=== PATIENT | female | born 1945 | race Caucasian/White ===

== ENCOUNTER 2019-01-01 09:49 | Observation (INO) | payer MEDICARE ==
--- NOTE | 2019-01-01 10:01 | ED ---
Altered Mental Status - HPI Summary HPI Summary: This patient is a 73 year old F presenting to [facility] via EMS with a chief complaint of confusion since earlier today. Per EMS, her confusion was worse upon arrival. Pt responded to the first 15 questions from EMS with her name. said that she was having these issues at 0830 today. Pt does not have any sensory or motor deficits. The patient rates the pain 0/10 in severity. Symptoms aggravated by nothing. Symptoms alleviated by nothing. Patient denies pain, CP, trouble breathing, dizziness, blurred vision. - History Of Current Complaint Stated Complaint: CODE HAGAN Time Seen by Provider: 01/01/19 09:54 Hx Obtained From: Patient, EMS Onset/Duration: Still Present, Suddenly Timing: Constant Severity Initially: Moderate Severity Currently: Moderate Character: Confusion Aggravating Factor(s): Nothing Alleviating Factor(s): Nothing Associated Signs And Symptoms: Negative: Dizziness - Allergies/Home Medications Allergies/Adverse Reactions: Allergies Allergy/AdvReac Type Severity Reaction Status Date / Time No Known Allergies Allergy Verified 01/02/19 07:01 Home Medications: Home Medications Allopurinol TAB* [Zyloprim 300 MG TAB*] 300 mg PO DAILY 01/01/19 [History Confirmed 01/01/19] Atenolol TAB* [Tenormin TAB* 50 MG] 50 mg PO DAILY 01/01/19 [History Confirmed 01/01/19] Cannabidiol (CBD) Extract (NF) [Epidiolex (NF)] 100 mg PO DAILY 01/01/19 [ History Confirmed 01/01/19] Ferrous Gluconate TAB* [Fergon TAB*] 324 mg PO DAILY 01/01/19 [History Confirmed 01/01/19] Furosemide TAB* [Lasix TAB*] 20 - 40 mg PO DAILY 01/01/19 [History Confirmed 08/14] Insulin Glargine,Hum.rec.anlog [Lantus Solostar 5x3 ML PENS] 25 units SUBCUT BEDTIME 01/01/19 [History Confirmed 01/01/19] Insulin Glargine,Hum.rec.anlog [Lantus Solostar] 30 unit SUBCUT QAM 01/01/19 [ History Confirmed 01/01/19] Lactulose [Enulose] 30 ml PO .2-3 TIMES/DAY 01/01/19 [History Confirmed 01/01/19 ] Lisinopril TAB* [Prinivil TAB*] 5 mg PO DAILY 01/01/19 [History Confirmed ] Nystatin CREAM* 1 applic TOPICAL BID 01/01/19 [History Confirmed 01/01/19] Hooven-3 Fatty Acids (Nf) [Fish Oil (NF)] 1,000 mg PO DAILY 01/01/19 [History Confirmed 01/01/19] Omeprazole CAP (NF) [Prilosec CAP* 20 MG] 20 mg PO DAILY 01/01/19 [History Confirmed 01/01/19] oxyCODONE TAB* [Roxycodone TAB 5 mg*] 2.5 - 5 mg PO QID PRN 01/01/19 [History Confirmed 01/01/19] PMH/Surg Hx/FS Hx/Imm Hx Previously Healthy: No Endocrine/Hematology History: Reports: Hx Diabetes Sensory History: Denies: Hx Deafness EENT History: Denies: Hx Deafness, Hx Auditory Problems - Surgical History Surgical History: Unable to Obtain/Confirm - Family History Known Family History: Positive: None - Social History Lives: With Family Hx Substance Use: No Review of Systems Constitutional: Other - negative - pain Negative: Chest Pain Respiratory: Other - negative - trouble breathing Neurological: Other - positive - confusion. negative - dizziness All Other Systems Reviewed And Are Negative: Yes Physical Exam - Summary Physical Exam Summary: Constitutional: Well-developed, Well-nourished, Alert. (-) Distressed Skin: Warm, Dry HENT: Normocephalic; Atraumatic Eyes: Conjunctiva normal Neck: Musculoskeletal ROM normal neck. (-) JVD, (-) Stridor, (-) Tracheal deviation Cardio: Rhythm regular, rate normal, Heart sounds normal; Intact distal pulses; The pedal pulses are 2+ and symmetric. Radial pulses are 2+ and symmetric. Pulmonary/Chest wall: Effort normal. (-) Respiratory distress, (-) Wheezes, (-) Rales Abd: Soft, (-) tenderness, (-) Distension, (-) Guarding, (-) Rebound Musculoskeletal: (-) Edema Neuro: Alert, Oriented x1, total confusion, no sensory or motor deficits Psych: Mood and affect Normal Triage Information Reviewed: Yes Vital Signs Reviewed: Yes Procedures - Sedation Patient Received Moderate/Deep Sedation with Procedure: No Diagnostics - Laboratory Result Diagrams: 11/07/19 04:56 01/02/19 04:56 Lab Statement: Any lab studies that have been ordered have been reviewed, and results considered in the medical decision making process. - Radiology CXR Radiology Interpretation Completed By: Radiologist Summary of Radiographic Findings: IMPRESSION: FINDINGS MOST CONSISTENT WITH CONGESTIVE HEART FAILURE. These findings are reviewed by Dr. Palacios. ABD X-ray Radiology Interpretation Completed By: Radiologist Summary of Radiographic Findings: IMPRESSION: NO METALLIC SURGICAL CLIPS OR PROSTHESES ARE SEEN. These findings are reviewed by Dr. Palacios. Brain MRI Radiology Interpretation Completed By: Radiologist Summary of Radiographic Findings: IMPRESSION: 1. LIMITED STUDY. 2. NO RESTRICTED DIFFUSION TO SUGGEST ACUTE INFARCT. 3. NONSPECIFIC WHITE MATTER CHANGES. 4. SMALL LEFT MASTOID EFFUSION.. These findings are reviewed by Dr. Palacios. - CT Brain CT Interpretation Completed By: Radiologist Summary of CT Findings: IMPRESSION: NO ACUTE INTRACRANIAL PATHOLOGY. CHRONIC SMALL VESSEL ISCHEMIC CHANGE. These findings are reviewed by Dr. Palacios. Head CTA CT Interpretation Completed By: Radiologist Summary of CT Findings: IMPRESSION: 1. No acute occlusive disease, severe stenosis or aneurysm in the head. 2. No acute disease or severe stenosis in the neck. 3. Moderate right pleural effusion. These findings are reviewed by Dr. Palacios. - EKG 1035 Cardiac Rate: NL - 71 BPM EKG Rhythm: Sinus Rhythm Summary of EKG Findings: EKG at 1035 shows 71 BPM, sinus rhythm, no STEMI National Institutes Of Health - NIH Scale Level of Consciousness: Alert/Keenly Responsive Ask Patient the Month and His/Her Age: Neither Correct/Aphasic Ask Pt to Open/Close Eyes and Registered Nurse/Release Non-Paretic Hand: Both Correctly Best Gaze (Only Horizontal Eye Movement): Normal Visual Field Testing: No Visual Loss Facial Paresis-Pt to Smile & Close Eyes or Grimace Symmetry: Normal/Symmetrical Motor Function - Right Arm: No Drift-Holds 10 Seconds Motor Function - Left Arm: No Drift-Holds 10 Seconds Motor Function - Right Leg: No Drift-Holds 10 Seconds Motor Function - Left Leg: No Drift-Holds 10 Seconds Limb Ataxia-Must be out of Proportion to Weakness Present: Absent Sensory (Use Pinprick to Test Arms/Legs/Trunk/Face): Normal Best Language (Describe Picture, Name Items): Severe Aphasia Dysarthria (Read Several Words): Normal Extinction and Inattention: No Abnormality Total Score: 4 Altered Mental Statu Course/Dx - Course Course Of Treatment: This patient is a 73 year old F presenting to [facility] via EMS with a chief complaint of confusion since earlier today. Per EMS, her confusion was worse upon arrival. Pt responded to the first 15 questions from EMS with her name. said that she was having these issues at 0830 today. Pt does not have any sensory or motor deficits. The patient rates the pain 0/10 in severity. Symptoms aggravated by nothing. Symptoms alleviated by nothing. Patient denies pain, CP, trouble breathing, dizziness, blurred vision. Physical exam shows total confusion, pt is oriented x1, and does not have sensory or motor deficits. All other abnormal lab results are not pertinent to current cc. Brain CT IMPRESSION: NO ACUTE INTRACRANIAL PATHOLOGY. CHRONIC SMALL VESSEL ISCHEMIC CHANGE. Head CTA IMPRESSION: 1. No acute occlusive disease, severe stenosis or aneurysm in the head. 2. No acute disease or severe stenosis in the neck. 3. Moderate right pleural effusion. CXR IMPRESSION: FINDINGS MOST CONSISTENT WITH CONGESTIVE HEART FAILURE. ABD X-ray IMPRESSION: NO METALLIC SURGICAL CLIPS OR PROSTHESES ARE SEEN. Brain MRI IMPRESSION: 1. LIMITED STUDY. 2. NO RESTRICTED DIFFUSION TO SUGGEST ACUTE INFARCT. 3. NONSPECIFIC WHITE MATTER CHANGES. 4. SMALL LEFT MASTOID EFFUSION.. EKG at 1035 shows 71 BPM, sinus rhythm, no STEMI. During ED course , pt was given Aspirin, Lipitor, Plavix. At 1009, Dr. Flores says the pt's confirms that there is no anti coagulation or trauma for the pt. Dr. Flores wants to give TPA due to speech and cognitive deficits being great enough and says that the benefit of TPA outweighs the negatives despite the NIH scale being low. At 1012, said the pt woke up with this confusion so TPA cannot be delivered due to unknown last well known time. Dr. Flores says to get an MRI now. Transfer for thrombectomy will be based on CT scan results. At 1022, the radiologist says the CT is negative. At 1112, Dr. Flores said to give the pt aspirin, plavix, and a statin and to admit the pt to the hospital. At 1700, Dr. Husain agrees to admit pt. Dx are AMS and aphasia. - Diagnoses Provider Diagnoses: AMS (altered mental status), Aphasia - Provider Notifications Discussed Care Of Patient With: Rizwan Flores Time Discussed With Above Provider: 10:09 Instructed by Provider To: Other - confirms that there is no anti coagulation or trauma for the pt. Dr. Flores wants to give TPA due to speech and cognitive deficits being great enough and says that the benefit of TPA outweighs the negatives despite the NIH scale being low. At 1012, said the pt woke up with this confusion so TPA cannot be delivered due to unknown last well known time. Dr. Flores says to get an MRI now. Transfer for thrombectomy will be based on CT scan results. At 1022, the radiologist says the CT is negative. At 1112, Dr. Flores said to give the pt aspirin, plavix, and a statin and to admit the pt to the hospital. At 1700, Dr. Husain agrees to admit pt. Discharge ED - Sign-Out/Discharge Documenting (check all that apply): Patient Departure - admit - Discharge Plan Condition: Stable Disposition: ADMITTED TO [facility] - Billing Disposition and Condition Condition: STABLE Disposition: Admitted to [facility] - Attestation Statements Document Initiated by Neftaly: Yes Documenting Scribe: Corby Mars Provider For Whom Neftaly is Documenting (Include Credential): Dr. Rizwan Palacios MD Scribaleida Attestation: Corby Dunbar scribed for Dr. Rizwan Palacios MD on 01/02/19 at 1027. Scribe Documentation Reviewed: Yes Provider Attestation: The documentation as recorded by the Corby bryant accurately reflects the service I personally performed and the decisions made by me, Dr. Rizwan Palacios MD Status of Scribe Document: Viewed
[2019-01-01] MEDS ORDERED: Alteplase* 100 MG VIAL ONE (10:04)
[2019-01-01] MEDS ORDERED: Iodixanol* (CONTRAST) 320 MG/ML 100 ML SDV IV ONE (10:19)
[2019-01-01 10:38] LABS: ABS Basophils 0.1 10^3/ul (0-0.2); ABS Eosinophils 0.1 10^3/ul (0-0.6); ABS Lymphocytes 1.8 10^3/ul (1.0-4.8); ABS Monocytes 0.4 10^3/ul (0-0.8); ABS Neutrophils 3.3 10^3/ul (1.5-7.7); Eosinophil % 2.2 %; Hematocrit 29 % (35-47); Hemoglobin 9.4 g/dL (12.0-16.0); Lymphocyte % 31.8 %; Mean Corpuscular HGB Conc 33 g/dL (31-36); Mean Corpuscular Hemoglobin 32 pg (27-31); Mean Corpuscular Volume 99 fL (80-97); Mean Platelet Volume 9.7 fL (7.4-10.4); Nucleated Red Blood Cells % 0.1; Platelet Count 119 10^3/uL (150-450); Red Cell Distribution Width 17 % (10-15); White Blood Count 5.7 10^3/uL (3.5-10.8)
[2019-01-01 10:49] LABS: Activated Partial Thrombo Time 37.3 seconds (26.0-38.0); INR 1.2 (0.82-1.09)
[2019-01-01 10:53] LABS: ALT 11 U/L (7-52); Albumin 2.4 g/dL (3.2-5.2); Albumin/Globulin Ratio 0.7 (1-3); Alkaline Phosphatase 126 U/L (34-104); BUN/Creatinine Ratio 12.4 (8-20); Blood Urea Nitrogen 28 mg/dL (6-24); CO2 Carbon Dioxide 23 mmol/L (22-32); Calcium 8.6 mg/dL (8.6-10.3); EGFR African American 25.7 (>60); EGFR Non-African American 21.2 (>60); Globulin 3.5 g/dL (2-4); Glucose 146 mg/dL (70-100); Sodium 140 mmol/L (135-145); Total Protein 5.9 g/dL (6.4-8.9)
[2019-01-01 11:05] LABS: Anion Gap 4 mmol/L (2-11); Chloride 113 mmol/L (101-111)
[2019-01-01] MEDS ORDERED: Aspirin 81 mg CHEW TAB* 81 MG TAB.CHEW PO ONE (11:09)
[2019-01-01] MEDS ORDERED: Clopidogrel TAB* 75 MG PO ONE (11:10)
[2019-01-01] MEDS ORDERED: Atorvastatin* 40 MG TAB PO ONE (11:10)
[2019-01-01 11:34] LABS: TSH (Thyroid Stimulating Horm) 1.74 mcIU/mL (0.34-5.60)
[2019-01-01 12:00] LABS: AST Redraw 36 U/L (13-39); Magnesium 2.1 mg/dL (1.9-2.7); Potassium Redraw 3.9 mmol/L (3.5-5.0)
--- NOTE | 2019-01-01 12:05 | CONS ---
CC: CONSULTATION REPORT: DATE OF CONSULT: 01/01/19 PATIENT OF: Dr. Senior. HISTORY OF PRESENT ILLNESS: This is a 73-year-old right-handed woman who has had no prior stroke or TIAs, who woke up this morning with a dense aphasia. According to the who I spoke to on the phone, she was last known well at roughly 10 when she went to bed, but he does not think there was any point this morning where she had a normal speech. There has been no weakness. PAST MEDICAL HISTORY: Hypertension, gout, lymphatic problems, and kidney disease. PAST SURGICAL HISTORY: There has been no recent surgeries. She has had no bleeding problems. This was history through the over the phone and he is going to be coming in shortly. MEDICATIONS: Include: 1. Lasix. 2. Atenolol. 3. Allopurinol. 4. Oxycodone. ALLERGIES: She has no known allergies. We will be getting full details through Dr. Senior's office and family. FAMILY HISTORY: The patient is unable to give us these details now. SOCIAL HISTORY: She does not smoke or drink. PHYSICAL EXAM: Temperature 98.4, pulse 69, respiratory rate 18, blood pressure of 183/67. She has an NIH stroke scale of 5 due to one of her orientation questions, one of her commands. She has a mild facial palsy and she has a significant aphasia with significant repetition. Strength was 5/5 bilaterally. Sensation was grossly intact to light touch, but it was hard for her to follow commands for more detailed testing. Chest: Clear. Cardiovascular: Regular rate and rhythm. She was obese. DIAGNOSTIC STUDIES/LAB DATA: CT scan was reviewed and showed no significant bleed. There was some mild hyperlucencies most likely secondary to chronic small vessel ischemic change. Labs are all pending. Initially, we were told by the ambulance crew that her last known well was 8:30. While she was in CT scan, we were ordered tPA to be mixed. It was opened but was not given. She was started on tPA because her last known well was actually evening before. We are getting an MRI scan now and her CTA is pending. If she does not pass a swallowing eval she should get a rectal aspirin depending on what we get with her MRI scan. I have asked for it to be ordered. Depending on what the CTA and MRI show, we will direct further therapy. IMPRESSION: This woman most likely has had a stroke. It is an unclear onset. This was a wake up stroke. Last known well was probably 10 o'clock when she went to bed. Her CT scan shows no bleed, but she is not a tPA candidate. We did order tPA, at this time in the CT scan when we thought the last known well was at 8 or 8:30 as per ambulance and after we were able to reach the on the phone, we canceled tPA, but it has already been mixed. We are getting an MRI scan now and this may further inform our decisions and we are awaiting the CTA. Discussed with the that if the CTA shows a large vessel occlusion, it may be in her best interest to be transferred to a place where they would have capacity for clot retrieval. Her NIH stroke scale was not high enough, but her aphasia is significant, it is possible that she could also worsen. Depending on what the MRI scan shows and what further studies show she will need a rectal aspirin if she does not pass her swallowing evaluation. We will be getting further information from the and Dr. Senior. Thank you for sharing her case. [id number]/[facility] #: [id number] CYDNEY
[2019-01-01 12:42] LABS: Urine Appearance Clear; Urine Bacteria Absent (Absent); Urine Bilirubin Negative (Negative); Urine Blood 2+ (Negative); Urine Color Yellow; Urine Glucose Negative (Negative); Urine Ketones Negative (Negative); Urine Nitrite Negative (Negative); Urine Protein 1+(30 mg/dL) (Negative); Urine Red Blood Cell 1+(3-5/hpf) (Absent); Urine Specific Gravity 1.015 (1.010-1.030); Urine Urobilinogen Negative (Negative); Urine White Blood Cell Trace(0-5/hpf) (Absent)
[2019-01-01] MEDS ORDERED: NS 0.9% 1000 ML** 1,000 ML IV ONE (17:10)
[2019-01-01 17:21] LABS: % Iron Saturation 33 % (15-55); Iron 75 ug/dL (50-212); Total Iron Binding Capacity 228 mcg/dL (250-450); Transferrin 163 mg/dL (203-362)
[2019-01-01 17:42] LABS: Ferritin 117.2 ng/mL (11-307)
[2019-01-01 17:45] LABS: Folate 11.95 ng/mL (>3.99)
[2019-01-01] MEDS ORDERED: Acetaminophen TAB* 325 MG PO PRN (18:07)
[2019-01-01] MEDS ORDERED: Ondansetron INJ* 2 MG/ML VIAL IV PRN (18:07)
[2019-01-01] MEDS ORDERED: NS 0.9% 1000 ML** 1,000 ML IV SCH (18:15)
--- NOTE | 2019-01-01 19:26 | HP ---
HISTORY AND PHYSICAL: ADDENDUM: The case was discussed and reviewed with Jessica Ro NP. Ms. Hankins is a 73-year-old female with a past medical history of gout, hypertension, type 2 diabetes, who presented to the emergency room with dense aphasia. She was seen by Neurology (Dr. Flores), and his impression is that the patient likely had a stroke. Initially, he had ordered TPA as the reported last known well was around 8 or 8:30 in the morning, but when he reached the patient's on the phone, the last known well was at 10 last night when she went to bed. She will be admitted for further workup including an echocardiogram and Doppler study. She will be treated with aspirin, Plavix. We will put holding parameters on her antihypertensives for permissive hypertension. She will have neuro checks, and she will be seen by a PT, OT and Speech Therapy. I am in agreement with the current management of this case. [id number]/[facility] #: [id number] MTDD
--- NOTE | 2019-01-01 20:33 | HP ---
ATTENDING ADDENDUM NOW INCLUDED ON THIS REPORT ADMISSION HISTORY AND PHYSICAL: DATE OF ADMISSION: 01/01/19 PRIMARY CARE PROVIDER: Dr. Senior. PROVIDER: Jessica Ro NP. ATTENDING PHYSICIAN: Dr. Inderjit Desouza.* (DICTATED BY JESSICA RO NP) OTHER PROVIDERS: Dr. Flores. CHIEF COMPLAINT: Confusion. HISTORY OF PRESENT ILLNESS: This is a 73-year-old female with a past medical history significant for hypertension and diabetes type 2 who arrived to the emergency room on 01/01/19 for confusion, last known well was around 10 o'clock last night. She woke up this morning around 8:30 with confusion, at which point her called EMS. Blood sugar en route was 141. In the emergency room, she underwent orbit, abdomen and chest x-rays to visualize any metal before she then went for brain CT imaging. Dr. Flores had seen the patient, performed an NIH Stroke Scale this morning which was scored at 5. No TPA was given. At the time of my evaluation this evening, the NIH Stroke Scale score was 7 with worsening ataxia, hemianopsia, and dysphagia. She was able to understand a conversation and follow commands, though cannot express complex sentences without using inappropriate words, can answer simple yes or no questions without difficulty. She denied any recent illness or injury or long- distance traveling. Denied chest pain, shortness of breath, fever, chills, lightheadedness, palpitations, abdominal pain, nausea, vomiting, or issues with moving her bowels or bladder. PAST MEDICAL HISTORY: Gout, hypertension, anemia, diabetes type 2, and GERD. PAST SURGICAL HISTORY: None. HOME MEDICATIONS: 1. Lantus insulin 30 units in the a.m. and 25 units in the p.m. 2. Omeprazole 20 mg p.o. daily. 3. Atenolol 50 mg p.o. daily. 4. Nystatin cream topically b.i.d. 5. Furosemide 40 mg p.o. daily. 6. Oxycodone 2.5 to 5 mg p.o. 4 times a day p.r.n. 7. Ferrous gluconate 324 mg p.o. daily. 8. Lisinopril 5 mg p.o. daily. 9. Allopurinol 300 mg p.o. daily. 10. Constulose 300 mL b.i.d. ALLERGIES: No known drug allergies. FAMILY HISTORY: Unable to obtain. SOCIAL HISTORY: Denied any tobacco, ETOH, or substance use. She is and lives with her . REVIEW OF SYSTEMS: Limited due to altered mental status and aphasia. PHYSICAL EXAMINATION GENERAL: This is a well-developed obese woman, seen resting on the stretcher, in mild distress. VITAL SIGNS: Temperature 98.4 degrees Fahrenheit, pulse 72, respirations 16, O2 sat 99% on room air, and blood pressure 186/66. HEENT: Eyes: Conjunctivae pink and moist. PERRLA. EOMs intact. ENT: Mucous membranes dry. Oropharynx clear. NECK: Supple. No cervical lymphadenopathy noted. RESPIRATORY: Lung sounds are clear throughout bilaterally, diminished in the bases bilaterally on room air. CARDIAC: S1 and S2 present. Heart rate regular. No murmurs, gallops, or rubs appreciated. ABDOMEN: Large, soft, nontender, nondistended with positive bowel sounds x4. MUSCULOSKELETAL: No clubbing or cyanosis of the digits. Full range of motion in all extremities. NEURO: Able to move all extremities. Unable to differentiate between sharp and dull in bilateral upper extremities. No facial asymmetry. Tongue midline. Ataxic to bilateral lower extremities. SKIN: Noted rashes on the abdominal fold and sort of flushed cheeks and rash in a butterfly pattern over face. PSYCH: Oriented to self. No anxiety or depression noted. PERTINENT LABORATORY DATA/DIAGNOSTIC STUDIES: RBCs 2.9, hemoglobin 9.4, hematocrit 29, MCV 99, MCH 32, RDW 17, platelet count 119. INR 1.2. Chloride 113, BUN 28, creatinine 2.26, glucose 146. TIBC 228, transferrin 163. Alkaline phosphatase 126. B-natriuretic peptide 643. Total protein 5.9, albumin 2.4, albumin-globulin ratio 0.7. Abdominal x-rays showed no metallic surgical clips or prosthesis. Chest x-ray findings most consistent with congestive heart failure. Brain MRI shows limited study. No restricted diffusion to suggest acute infarct , nonspecific white matter changes, and small left mastoid effusion. EKG shows sinus rhythm. CTA of head and neck showed the proximal major intracranial vessels of the anterior and posterior circulation are patent without intraarterial thrombus or severe stenosis. There is calcified atherosclerotic plaque along the cavernous ICA and a type right [employer] SPECIALIST. No aneurysms identified. The dural venous sinuses are grossly patent. No acute occlusive disease, severe stenosis, or aneurysms in the head. No acute disease or severe stenosis in the neck. Moderate right pleural effusion. Brain CT: No acute intracranial pathology, chronic small-vessel ischemic change. Orbit x-ray: No radiopaque foreign object attributable to the orbits. ASSESSMENT AND PLAN: My impression is that this is a 73-year-old female with a past medical history significant for hypertension, diabetes, and gout who was admitted on 01/01/19 for an ischemic cerebrovascular accident with mild thrombocytopenia. 1. Ischemic cerebrovascular accident. The patient appears to have slight worsening of deficits since this morning with an NIH Stroke Scale going from [address] the patient on neuro checks q.4 hours with telemetry monitoring, PT, OT and speech therapy consult. Start the patient on atorvastatin, aspirin, and Plavix. Dr. Flores has already been in to see the patient. 2. Anemia, likely due to anemia of chronic renal disease, though there are no previous labs to compare. Again, the patient is currently on ferrous gluconate , which she can continue during this admission. Iron studies, vitamin B12, and folate were drawn. Vitamin B12 and folate were within normal limits. 3. Elevated creatinine level. There are no previous labs to compare this against to, though it is suspected that it is likely chronic in nature. However , we will perform a renal ultrasound to look for any renal stenosis or abnormalities in the kidneys. Erythropoietin lab will be drawn in the morning as well. One liter of fluid given in the emergency room. We will keep hydrated with normal saline at 100 in case this is a possible acute kidney injury. 4. Mild thrombocytopenia. We will continue to monitor. There are no signs of diffuse bleeding. We will draw CBC in the a.m. 5. Hypertension. Do not want to be aggressive about blood pressure control. The patient may continue her furosemide and lisinopril; however, to hold if the systolic blood pressure goes below 140. 6. History of gout. May continue her allopurinol. 7. Diabetes type 2. Blood sugar in the emergency room was 140s to 150s. We will continue to check blood sugars a.c. and h.s. I have decreased her Lantus dosing from her normal 30 in the a.m. and 25 in the p.m. to about 15 units b.i.d. and sliding scale coverage. 8. Gastroesophageal reflux disease. No signs or symptoms of indigestion at the moment. Held omeprazole due to interactions with the Plavix. Place the patient on famotidine. 9. DVT prophylaxis. SCDs, heparin. 10. Code status is full code. CONDITION: Guarded. DISPOSITION: Admit OBV to [address] [place] [address]. TIME SPENT: Time spent with the patient is over about 70 minutes with more than half of it spent [id number]. Plan of care has been discussed with my attending, Dr. Desouza, and they agreed. JESSICA RO NP ADDENDUM: The case was discussed and reviewed with Jessica Ro NP. Ms. Hankins is a 73-year-old female with a past medical history of gout, hypertension, type 2 diabetes, who presented to the emergency room with dense aphasia. She was seen by Neurology (Dr. Flores), and his impression is that the patient likely had a stroke. Initially, he had ordered TPA as the reported last known well was around 8 or 8:30 in the morning, but when he reached the patient's on the phone, the last known well was at 10 last night when she went to bed. She will be admitted for further workup including an echocardiogram and Doppler study. She will be treated with aspirin, Plavix. We will put holding parameters on her antihypertensives for permissive hypertension. She will have neuro checks, and she will be seen by a PT, OT and Speech Therapy. I am in agreement with the current management of this case. INDERJIT Desouza MD [id number]/[facility] #: [id number] [id number]/[facility] #: [id number] CYDNEY
[2019-01-01] MEDS ORDERED: Insulin GLARGINE(*) 1 UNITS UNIT SUBCUT SCH (21:00)
[2019-01-01] MEDS: Heparin VIAL(*) 5000 UNITS/ML VIAL (FIVE THOUSAND) SUBCUT SCH (21:47)
[2019-01-01] MEDS: Insulin GLARGINE(*) 1 UNITS UNIT SUBCUT SCH (21:47)
[2019-01-01 22:54] LABS: Urine Creatinine Concentration 66.75 mg/dL
[2019-01-02] MEDS: oxyCODONE TAB* 5 MG TAB PO PRN ×3 (03:25→20:27)
[2019-01-02] MEDS: hydrALAZINE IV* 20 MG/ML VIAL IV SLOW PU PRN ×3 (04:44→16:34)
[2019-01-02 05:18] LABS: ABS Basophils 0.1 10^3/ul (0-0.2); ABS Eosinophils 0.1 10^3/ul (0-0.6); ABS Lymphocytes 1.2 10^3/ul (1.0-4.8); ABS Monocytes 0.8 10^3/ul (0-0.8); ABS Neutrophils 5.7 10^3/ul (1.5-7.7); Eosinophil % 1.8 %; Hematocrit 26 % (35-47); Hemoglobin 8.8 g/dL (12.0-16.0); Lymphocyte % 14.9 %; Mean Corpuscular HGB Conc 34 g/dL (31-36); Mean Corpuscular Hemoglobin 33 pg (27-31); Mean Corpuscular Volume 99 fL (80-97); Mean Platelet Volume 9.5 fL (7.4-10.4); Platelet Count 119 10^3/uL (150-450); Red Blood Count 2.65 10^6 /uL (3.70-4.87); Red Cell Distribution Width 17 % (10-15); White Blood Count 7.9 10^3/uL (3.5-10.8)
[2019-01-02 05:30] LABS: BUN/Creatinine Ratio 13.6 (8-20); Calcium 8.7 mg/dL (8.6-10.3); EGFR African American 29.7 (>60); EGFR Non-African American 24.6 (>60); HDL Cholesterol 34.1 mg/dL; Potassium 3.7 mmol/L (3.5-5.0)
[2019-01-02] MEDS: Heparin VIAL(*) 5000 UNITS/ML VIAL (FIVE THOUSAND) SUBCUT SCH ×3 (05:36→23:03)
[2019-01-02] MEDS ORDERED: Lisinopril TAB* 10 MG PO SCH (09:00)
[2019-01-02] MEDS ORDERED: Lisinopril TAB* 5 MG PO SCH (09:00)
[2019-01-02] MEDS ORDERED: Insulin GLARGINE(*) 1 UNITS UNIT SUBCUT SCH (09:00)
[2019-01-02] MEDS ORDERED: Furosemide TAB* 20 MG PO SCH (09:00)
[2019-01-02] MEDS ORDERED: Atenolol TAB* 50 MG PO SCH (09:00)
[2019-01-02] MEDS ORDERED: Perflutren Lipid Microsphere* 3 ML VIAL ONE (09:47)
[2019-01-02] MEDS: Aspirin EC TAB* 81 MG TAB.EC PO SCH ×3 (10:18→11:54)
[2019-01-02] MEDS: Furosemide TAB* 20 MG PO SCH (10:21)
[2019-01-02] MEDS: Famotidine TAB* 20 MG PO SCH (10:22)
[2019-01-02] MEDS: Ferrous Gluconate TAB* 324 MG TAB PO SCH (10:24)
[2019-01-02] MEDS: Clopidogrel TAB* 75 MG PO SCH ×2 (10:24→11:55)
[2019-01-02] MEDS: Allopurinol TAB* 300 MG PO SCH (10:26)
[2019-01-02] MEDS: Atenolol TAB* 50 MG PO SCH (10:27)
[2019-01-02] MEDS: Insulin GLARGINE(*) 1 UNITS UNIT SUBCUT SCH ×2 (10:28→20:10)
--- NOTE | 2019-01-02 17:15 | ECHO ---
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 History: Risk factors: Hypertension. Diabetes mellitus. Morbidly obese. Conclusions Summary: - Left ventricle: The cavity size is normal. Wall thickness is mildly to moderately increased. Sigmoid septum. The estimated ejection fraction is 60-65%. Features are consistent with a pseudonormal left ventricular filling pattern, with concomitant abnormal relaxation and increased filling pressure (grade 2 diastolic dysfunction). - Left atrium: The atrium is mildly dilated. - Right atrium: The atrium is mildly dilated. - Atrial septum: Positive bubble study. - Mitral valve: There is mild regurgitation. - Aortic valve: The leaflets are mildly thickened. The findings are consistent with mild stenosis. The presence of stenosis is new since the study of February 2014. The mean systolic gradient is 11.0 mm Hg. The LVOT to aortic valve VTI ratio is 0.5. The valve area by the velocity-time integral method is 1.70 cm^2. The valve area by the peak velocity method is 1.70 cm^2. Study data: Transthoracic echocardiogram. Procedure: Transthoracic echocardiography was performed. Image quality was suboptimal. Intravenous Definity , 2 mlswas administered. A bubble study was performed. Complete 2D, spectral Doppler, and color flow Doppler. Location: Bedside. Patient status: Inpatient. Patient room number: 450 02. The previous study was not available, so comparison is made to the report of February 2014. Rhythm: Normal sinus rhythm. Findings Left ventricle: The cavity size is normal. Wall thickness is mildly to moderately increased. Sigmoid septum. The estimated ejection fraction is 60-65%. Wall motion is normal; there are no regional wall motion abnormalities. Features are consistent with a pseudonormal left ventricular filling pattern, with concomitant abnormal relaxation and increased filling pressure (grade 2 diastolic dysfunction). Right ventricle: The cavity size is normal. Systolic function is normal. Left atrium: The atrium is mildly dilated. Right atrium: The atrium is mildly dilated. Atrial septum: Positive bubble study. There is a shunt. The shunt is new since the study of February 2014. Mitral valve: The Mitral valve annulus appears calcified. The leaflets are mildly thickened. There is no evidence of stenosis. There is mild regurgitation. Aortic valve: Not well visualized. The leaflets are mildly thickened. The findings are consistent with mild stenosis. The presence of stenosis is new since the study of February 2014. There is no significant regurgitation. Tricuspid valve: Not well visualized. There is trace regurgitation. Pulmonic valve: Not well visualized. There is no significant regurgitation. Aorta: Aortic root: The aortic root is poorly visualized. Aortic arch: The aortic arch is appears normal. Pericardium: There is no significant pericardial effusion. Pulmonary arteries: Not well visualized. Systolic pressure can not be accurately estimated. Systemic veins: Inferior vena cava: The vessel is dilated. There is (>= 50%) respiratory change in the IVC dimension. Measurements Left ventricle Value Ref Right atrium continued Value Ref LC, LAX 4.4 cm 3.8 - 5.2 ML dim, ES, A4C (H) 4.6 cm 2.6 - 4.4 ESD, LAX 3.3 cm 2.2 - 3.5 Estimated RAP 8 mm Hg --------- FS, LAX 27 % 27 - 45 PW, ED, LAX (H) 1.2 cm 0.6 - 0.9 Aortic valve Value Ref EF (L) 53 % 54 - 74 Peak v, S 2.2 m/sec --------- E', lat barbara, TDI (L) 8.5 cm/sec >=10.0 VTI, S 50.0 cm -- ------- E/e', lat barbara, 17 Mean grad, S 11.0 mm Hg ----- ---- TDI Peak grad, S 19.0 mm Hg --------- E', med barbara, TDI (L) 6.3 cm/sec >=7.0 LVOT/AV, VTI ratio 0.5 -- ------- E/e', med barbara, 23 ESTELA, VTI 1.70 cm^2 ----- ---- TDI ESTELA, Vmax 1.70 cm^2 --------- E', avg, TDI 7.4 cm/sec E/e', avg, TDI (H) 19 <=14 Mitral valve Value Re f Peak E 1.43 m/sec --------- LVOT Value Ref Peak A 0.91 m/sec --------- Diam, S 2.00 cm Decel time 116 ms --------- Area 3.1 cm^2 PHT 83 ms --------- Peak minnie, S 1.16 m/sec Mean grad, D 4.0 mm Hg --------- VTI, S 26.0 cm Peak grad, D 10.0 mm Hg --------- Peak grad, S 5 mm Hg Peak E/A ratio 1.6 --------- Mean grad, S 3 mm Hg MVA, PHT 2.7 cm^2 --------- Ventricular septum Value Ref Pulmonic valve Value Ref IVS, ED (H) 1.4 cm 0.6 - 0.9 Peak v, S 1.07 m/sec --------- Peak grad, S 5.0 mm Hg --------- Right ventricle Value Ref LC, LAX 2.5 cm Aortic arch Value Ref LC minor ax, 3.2 cm 1.9 - 3.5 Arch diam 3.3 cm --------- A4C mid Decending aorta Value Ref Left atrium Value Ref Arash peak minnie 0.92 m/sec --------- AP dim, ES (H) 4.60 cm 2.70 - 3.80 Inferior vena cava Value Ref ML dim, A4C 5.2 cm Diam 2.6 cm --------- SI dim, A4C 6.3 cm Vol/bsa, ES, A/L (H) 40 ml/m^2 16 - 34 Right atrium Value Ref SI dim, ES (H) 5.4 cm 3.4 - 5.3 Legend: (L) and (H) anna values outside specified reference range. Prepared and electronically signed by Femi Aguirre MD 01/02/2019 17:15
--- NOTE | 2019-01-02 17:33 | PN ---
Subjective Date of Service: 01/02/19 Interval History: Ms. Dirk Hankins is feeling much better today. Her symptoms have completely resolved. Her memory of yesterday is patchy, but she does remember having some difficulty with speech yesterday in the ED. She knows now that she was not making sense, but did not realize it at the time. Today she has been up ambulating to the bathroom with 1 assist. No c/o unsteady gait. Nursing reports continued HTN. Family History: Unchanged from Admission Social History: Unchanged from Admission Past Medical History: Unchanged from Admission Objective Active Medications: Acetaminophen (Tylenol Tab*) 650 mg PO Q4H PRN MILD PAIN or TEMP > 100.4 Allopurinol (Zyloprim Tab*) 300 mg PO DAILY CRISTIAN Aspirin (Aspirin Ec Tab*) 81 mg PO DAILY CRISTIAN Atenolol (Tenormin Tab*) 50 mg PO DAILY CRISTIAN Atorvastatin Calcium (Lipitor*) 40 mg PO 1700 CRISTIAN Clopidogrel Bisulfate (Plavix Tab*) 75 mg PO DAILY CRISTIAN Famotidine (Pepcid Tab*) 20 mg PO DAILY CRISTIAN Ferrous Gluconate (Fergon Tab*) 324 mg PO DAILY CRISTIAN Furosemide (Lasix Tab*) 20 mg PO DAILY CRISTIAN Heparin Sodium (Porcine) (Heparin Vial(*)) 5,000 units SUBCUT Q8HR CRISTIAN Hydralazine HCl (Apresoline Iv*) 5 mg IV SLOW PU Q6H PRN Systolic Bp Greater Than:160 Insulin Glargine (Lantus(*)) 15 units SUBCUT BID CRISTIAN Lactulose (Lactulose*) 30 ml PO BID CRISTIAN Lisinopril (Prinivil Tab*) 10 mg PO DAILY CRISTIAN Ondansetron HCl (Zofran Inj*) 4 mg IV Q4H PRN NAUSEA/VOMITING Oxycodone HCl (Roxycodone Tab*) 5 mg PO QID PRN PAIN - MODERATE Vital Signs - 8 hr 01/02/19 01/02/19 01/02/19 09:32 11:42 14:46 Temperature 97.7 F Pulse Rate 73 Respiratory 20 18 Rate Blood Pressure 165/65 150/69 (mmHg) O2 Sat by Pulse 94 Oximetry Oxygen Devices in Use Now: None Appearance: Elderly female sitting in bed in NAD Ears/Nose/Mouth/Throat: Mucous Membranes Moist Neck: NL Appearance and Movements; NL JVP, Trachea Midline Respiratory: Symmetrical Chest Expansion and Respiratory Effort, Clear to Auscultation Cardiovascular: NL Sounds; No Murmurs; No JVD, RRR Abdominal: NL Sounds; No Tenderness; No Distention Extremities: No Edema Neurological: Alert and Oriented x 3, NL Sensation, NL Muscle Strength and Tone Lines/Tubes/Other Access: Clean, Dry and Intact Peripheral IV Nutrition: Taking PO's Result Diagrams: 01/02/19 04:56 01/02/19 04:56 Assess/Plan/Problems-Billing Assessment: Ms. Dirk Hankins is a 73 yo F with PMH of HTN, anemia, DM2, GERD, gout; who presented to the ED with c/o confusion and was found to have multiple neurological deficits concerning for CVA. - Patient Problems (1) TIA (transient ischemic attack) Code(s): G45.9 - TRANSIENT CEREBRAL ISCHEMIC ATTACK, UNSPECIFIED Comment: - Initially thought to be a CVA, though at this point symptoms have completely resolved - NIH stroke scale of 7 in the ED d/t ataxia, hemianopsia, dysphasia, confusion - MRI brain unremarkable - Echo shows EF 60-65%, diastolic dysfunction, PFO - Appreciate Neuro consult - Check BLE US to r/o DVT d/t PFO - PT/OT evals - Continue aspirin, Plavix, atorvastatin (2) Hypertension Code(s): I10 - ESSENTIAL (PRIMARY) HYPERTENSION Comment: - Hypertensive with SBP into 200s - Continue atenolol, PRN hydralazine; increase lisinopril (3) CKD (chronic kidney disease), stage III Code(s): N18.3 - CHRONIC KIDNEY DISEASE, STAGE 3 (MODERATE) Comment: - With LEONILA on admission, now improved - Baseline creatinine unclear as previous labs are from 2015 (4) Anemia Code(s): D64.9 - ANEMIA, UNSPECIFIED Comment: - Chronic and consistent with baseline - Iron studies normal, so suspect AOCD d/t CKD (5) Diabetes mellitus Code(s): E11.9 - TYPE 2 DIABETES MELLITUS WITHOUT COMPLICATIONS Comment: - A1c 4.7% indicating likely over-treatment - Continue Lantus at decrease dose; should remain on decreased dose at d/c (6) Thrombocytopenia Code(s): D69.6 - THROMBOCYTOPENIA, UNSPECIFIED Comment: - Chronic, at baseline (7) Hyperammonemia Code(s): E72.20 - DISORDER OF UREA CYCLE METABOLISM, UNSPECIFIED Comment: - History of elevated ammonia so do not think this contributed to confusion - Continue lactulose (8) GERD (gastroesophageal reflux disease) Code(s): K21.9 - GASTRO-ESOPHAGEAL REFLUX DISEASE WITHOUT ESOPHAGITIS Comment : - Continue famotidine (9) History of gout Code(s): Z87.39 - PERSONAL HISTORY OF DISEASES OF THE MS SYS AND CONN TISS Comment: - Continue allopurinol (10) DVT prophylaxis Comment: - Heparin SQ (11) Full code status Code(s): Z78.9 - OTHER SPECIFIED HEALTH STATUS Comment: Status and Disposition: Observation. Anticipate d/c home when medically stable, likely tomorrow. Attending: Nima Ibarra
[2019-01-02] MEDS: Atorvastatin* 40 MG TAB PO SCH (18:16)
[2019-01-02] MEDS ORDERED: hydrALAZINE IV* 20 MG/ML VIAL IV SLOW PU PRN ×2 (19:40→20:01)
[2019-01-03] MEDS: Heparin VIAL(*) 5000 UNITS/ML VIAL (FIVE THOUSAND) SUBCUT SCH ×2 (05:51→14:31)
[2019-01-03] MEDS ORDERED: Lisinopril TAB* 10 MG PO SCH (09:00)
[2019-01-03] MEDS: Allopurinol TAB* 300 MG PO SCH (09:22)
[2019-01-03] MEDS: Aspirin EC TAB* 81 MG TAB.EC PO SCH (09:23)
[2019-01-03] MEDS: Atenolol TAB* 50 MG PO SCH (09:23)
[2019-01-03] MEDS: Clopidogrel TAB* 75 MG PO SCH (09:24)
[2019-01-03] MEDS: Ferrous Gluconate TAB* 324 MG TAB PO SCH (09:24)
[2019-01-03] MEDS: Famotidine TAB* 20 MG PO SCH (09:24)
[2019-01-03] MEDS: Furosemide TAB* 20 MG PO SCH (09:24)
[2019-01-03] MEDS: Insulin GLARGINE(*) 1 UNITS UNIT SUBCUT SCH (09:25)
[2019-01-03] MEDS: oxyCODONE TAB* 5 MG TAB PO PRN (09:28)
[2019-01-03] MEDS ORDERED: oxyCODONE TAB* 5 MG TAB PO ONE (11:39)
[2019-01-03 16:11] VITALS: BP 170/64
[2019-01-03] MEDS: Atorvastatin* 40 MG TAB PO SCH (17:34)
--- NOTE | 2019-01-03 18:49 | PN ---
NEUROLOGICAL FOLLOWUP: DATE OF SERVICE: 01/03/19 PATIENT OF: Poppy Romero NP. HISTORY: The patient tells me that she was beginning to improve even while she was in the ER. Her speech is completely back to normal and she has no further deficits. She can remember having difficulty speaking and not being able to find words, but also being confused as to the words and apparently, that has begun to improve. She began saying that her dog was blue and not realizing what she was saying. She never had any weakness with this. CURRENT MEDICATIONS: Include: 1. Allopurinol 300 daily. 2. Aspirin 81 mg daily. 3. Plavix 75 mg daily. 4. Atenolol 50 mg daily. 5. Lipitor 40 mg daily. 6. Lasix 20 mg daily. 7. Lantus insulin 15 units b.i.d. 8. Lactulose 30 mL b.i.d. 9. Lisinopril 20 mg daily. PHYSICAL EXAMINATION: On exam, temperature 98.5, pulse 65, respirations 16, blood pressure 159/64. She was alert and oriented with normal speech and comprehension. Cranial nerves II through XII were intact. Her right eye palpebral fissures were wider set than the left eye, but this is chronic, according to both her and her sister. Motor exam revealed normal tone and strength. Chest: Clear. Cardiovascular: Regular rate and rhythm. DIAGNOSTIC STUDIES/LAB DATA: Her MRI scan showed no stroke and did show some nonspecific small-vessel ischemic changes. Her echo did show a PFO, but with normal atrium. Her CTA showed no significant stenosis or occlusion. Labs include normal CBC other than hematocrit of 26, platelet count of 119. INR of 1.2, PTT of 37. Ammonia was 81 and has been elevated chronically according to her nurse practitioner. Erythropoietin 41.9. Calcium 8.7, blood sugar has been running in the 160s to 190s while here, BUN 27, creatinine 1.99. Normal SGPT and SGOT. LDL was 134 and she was started on a statin. Normal B12 and folate. IMPRESSION AND PLAN: Bonnie has had an acute aphasia with good resolution of her symptoms. She has hyperlipidemia, which is being treated. She is obese. She snores significantly and I would recommend getting a sleep study to rule out sleep apnea, which has been associated with recurrent risk of stroke. She has hypertension and diabetes and these would also be risk factors. I discussed with her the issue of the patent foramen ovale, but with normal atrium and all these other risk factors, I do not think that the patent foramen ovale is the likely cause and I do not think it needs to be pursued at this point. She should be on the aspirin and Plavix for a month, then I would switch her to aspirin. Her Lipitor should be continued chronically. She would like to go home and I think that this is reasonable. She is anemic and I would make sure she does not have gastrointestinal bleeding, which can also increase her ammonia , and the hospitalist is taking care of the ammonia with lactulose and she will be having followup of this through the primary care doctor. If she has gastrointestinal bleeding, then we will need to rethink her aspirin and Plavix combination. Thank you for sharing her case. [id number]/[facility] #: [id number] CYDNEY
--- NOTE | 2019-01-03 20:20 | DS ---
CC: Dr. Rafat Senior * DISCHARGE SUMMARY: DATE OF ADMISSION: 01/01/19 DATE OF DISCHARGE: 01/03/19 PRIMARY CARE PROVIDER: Dr. Rafat Senior. ATTENDING PHYSICIAN: Dr. Cindy Husain.* (DICTATED BY KALYANI BERNARD NP) PRIMARY DIAGNOSES: 1. Transient ischemic attack. 2. Hypertension. 3. Diabetes mellitus, type 2. 4. Hyperammonemia. 5. Acute kidney injury superimposed on chronic kidney disease, stage 3. SECONDARY DIAGNOSES: 1. Thrombocytopenia. 2. Gastroesophageal reflux disease. 3. History of gout. STUDIES WHILE IN THE HOSPITAL: 1. Orbit x-ray on 01/01/19 reads as no radiopaque foreign body attributable to the orbits. 2. Brain CT on 01/01/19 reads as no acute intracranial pathology. Chronic small vessel ischemic change. 3. Head CTA on 01/01/19 reads as no acute occlusive disease, severe stenosis, or aneurysm in the head. No acute disease or severe stenosis in the neck. Moderate right pleural effusion. 4. EKG on 01/01/19, not viewable at this time. 5. Brain MRI on 01/01/19 reads as limited study. No restricted diffusion to suggest acute infarct. Nonspecific white matter changes. Small left mastoid effusion. 6. Abdominal x-ray on 01/01/19 reads as no metallic surgical clips or prosthesis are seen. 7. Chest x-ray on 01/01/19 reads as findings most consistent with congestive heart failure. 8. Renal ultrasound on 01/01/19 reads as right kidney not visualized, possibly obscured by bowel gas. Left kidney grossly normal in appearance. No hydronephrosis. Study limited by obese body habitus and bowel gas. 9. Transthoracic echocardiogram on 01/02/19 reads as the left ventricular cavity size is normal. Wall thickness is mildly to moderately increased. Sigmoid septum. The estimated ejection fraction is 60% to 65%. Features are consistent with a pseudonormal left ventricular filling pattern with incompetent abnormal relaxation and increased filling pressure (grade 2 diastolic dysfunction). The left atrium is mildly dilated. The right atrium is mildly dilated. Positive bubble study. There is mild MR. The aortic valve leaflets are mildly thickened. The findings are consistent with mild . The presence of is new since the study of February 2014. 10. Lower extremity venous Doppler study on 01/02/19 reads as limited study. No evidence of right or left popliteal artery, right femoral artery, left proximal or mid femoral artery, or right or left calf thrombus; however, the bilateral common femoral greater saphenous and profunda femoris veins and the distal left femoral vein could not be visualized secondary to body habitus. No evidence of left or right lower extremity DVT. Study limited by the patient's body habitus. Bilateral lower leg edema. CONSULTATIONS WHILE IN THE HOSPITAL: 1. Dr. Flores from Neurology. HISTORY OF PRESENT ILLNESS AND HOSPITAL COURSE: Ms. Dirk Hankins is a 73-year- old female with past medical history of gout, hypertension, anemia, chronic kidney disease, type 2 diabetes, and GERD, who presented to the emergency room on 01/01/19 with complaints of confusion. Please see the history and physical by Jessica Ro NP, for complete summary of the events leading up to this hospitalization. In short, the patient's last known well was around 10 p.m. the prior night. She awoke in the morning with confusion. Initially NIH Stroke Scale was scored at 5. Though the patient developed worsening ataxia, hemianopsia, and aphasia, an NIH Stroke Scale was at that point a 7. The patient was not a candidate for tPA as her last known well was the prior night. She was seen by Neurology in the emergency room and thereafter admitted by the hospitalist service. The patient had an uneventful night and by the next day, on 01/02/19, symptoms had resolved completely. There was no evidence of Wernicke's aphasia or expressive aphasia which were present the prior day. There was no evidence of ataxia and the patient was able to ambulate at her baseline. She was seen by Physical Therapy who had no acute concerns. She was noted to have a positive bubble study on echo and so a lower extremity ultrasound was performed without any conclusive evidence of DVT. There is not any obvious clinical evidence of DVT on exam. The patient was seen today again by Dr. Flores from Neurology. He agreed that this presentation was consistent with TIA as symptoms had resolved. He did recommend dual- antiplatelet therapy for 30 days and then stopping Plavix and continuing aspirin only. He additionally recommended an outpatient sleep study and weight loss. He cleared the patient for discharge from a neurological perspective. The patient during this hospitalization was noted to be anemic consistent with her baseline. A stool occult was negative. Creatinine was elevated on admission and thereafter trended down though the patient's baseline creatinine was not entirely clear. A1c was noted to be 4.7 indicating over-treatment of diabetes and so insulin was reduced for this reason. The patient was noted to have an elevated ammonia consistent with her history and this did not cause any neurological deficits. Lipid panel revealed triglycerides of 111, total cholesterol of 190, LDL of 134, and HDL of 34. Blood pressure had been significantly elevated with at least a couple of readings of systolics in the 200s. For that reason, lisinopril was increased with some effect. At this point, the patient reports feeling well and she is anxious to return home. On exam, she has no focal neurological deficit. She is alert and oriented x4. Her heart has a regular rate and rhythm with a grade 2/6 systolic murmur best heard in the right upper sternal border. Abdomen is soft, nontender. There is mild- to-moderate nonpitting edema in bilateral lower extremities, which is the patient's reported baseline. The patient was monitored on telemetry and there was no evidence of any arrhythmias including atrial fibrillation. Ms. Dirk Hankins is stable for discharge today. Most recent vitals are as follows: Temp 98.4, heart rate 69, respiratory rate 18, oxygen saturation 96% on room air, blood pressure 170/64. DISCHARGE MEDICATIONS: New medications: 1. Aspirin 81 mg p.o. daily. 2. Atorvastatin 40 mg p.o. daily. 3. Plavix 75 mg p.o. daily x30 days. Changed medications: 1. Glargine 15 units subcu b.i.d. (previously was 30 units q.a.m. and 25 units q.p.m.) 2. Lisinopril 20 mg p.o. daily. (previously was 5 mg daily). 3. Lactulose 30 mL p.o. t.i.d. (previously was daily). Continued medications: 1. Allopurinol 300 mg p.o. daily. 2. Atenolol 50 mg p.o. daily. 3. Ferrous gluconate 324 mg p.o. daily. 4. Furosemide 20 to 40 mg p.o. daily. 5. Oxycodone 2.5 to 5 mg p.o. four times a day p.r.n. pain. 6. CBD extract 100 mg p.o. daily. 7. Nystatin cream 1 application topically b.i.d. 8. [place]-3 1000 mg p.o. daily. 9. Omeprazole 20 mg p.o. daily. DISCHARGE PLAN: Ms. Dirk Hankins will be discharged home. Activity will be as tolerated. Diet will be heart healthy. Medications are noted above. The patient will need to remain on dual-antiplatelet therapy for 30 days. After 30 days, she can stop the Plavix and continue aspirin. She has been placed on a statin as her LDL is not below goal of 70. Lisinopril dosing has been increased for blood pressure control. Lantus dosing has been decreased due to low A1c and concern for hypoglycemia. Regarding the patient's lactulose, it is unclear how this was actually prescribed to her though the patient reports that she has been taking it once a day and due to her elevated ammonia, she should be taking this 3 times daily. She can continue her other usual medications as noted above. Again, it is recommended that she have an outpatient sleep study as she is at very high risk of obstructive sleep apnea. Weight loss is also recommended. She will need to follow up with her primary care provider in the next 4 to 7 days. She should return to the hospital or nearest emergency room for any worsening of symptoms, shortness of breath, lightheadedness, dizziness, chest discomfort, high fevers, chills, night sweats, loss of consciousness, or any other worrisome signs or symptoms. DISCHARGE CONDITION: Stable. DISCHARGE DISPOSITION: Home. This is a summarized report of a complex medical history and hospital stay. For further details, please see the entire medical record. TIME SPENT: Approximately 60 minutes was spent on this discharge. KALYANI BERNARD, WALLP[employer]ER HANGER HELPER [id number]/[facility] #: [id number] CYDNEY
[2019-01-03] MEDS ORDERED: oxyCODONE TAB* 5 MG TAB PO SCH (21:00)
== END 2019-01-03 18:15 | disposition home or self-care (01) ==
LOC: ED 09:49 → MEDTELE 18:07 → MERGE 18:07
PROVIDERS: ADMIT Internal Medicine; ATTEND Internal Medicine
DX: G45.9 Transient cerebral ischemic attack, unspecified (principal); 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 chronic kidney disease with stage 1 through stage 4 chronic kidney disease, or unspecified chronic kidney disease; N18.3 Chronic kidney disease, stage 3 (moderate); E11.22 Type 2 diabetes mellitus with diabetic chronic kidney disease; D64.9 Anemia, unspecified; E66.01 Morbid (severe) obesity due to excess calories; R47.01 Aphasia; R60.9 Edema, unspecified; E78.5 Hyperlipidemia, unspecified; Z79.4 Long term (current) use of insulin; E72.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 urea cycle metabolism, unspecified; D69.6 Thrombocytopenia, unspecified; K21.9 Gastro-esophageal reflux disease without esophagitis; Z79.899 Other long term (current) drug therapy; Z79.82 Long term (current) use of aspirin
CPT/HCPCS: 36415; 70030; 70450; 70496; 70498; 70551; 71045; 74018; 76775; 80048; 80061; 80076; 81003; 81015; 82140; 82272; 82570; 82607; 82668; 82728; 82746; 83036; 83540; 83550; 83690; 83735; 83880; 84443; 84484; 84540; 85025; 85610; 85730; 87086; 93005; 93306; 93970; 96361; 96365; 96372; 96375; 99285; A9270-GY; C8929; G0378; G8978-GP-CH; G8979-GP-CH; G8980-GP-CH; J0360; J1644; J2405; J2997

== ENCOUNTER 2019-02-16 18:17 | Inpatient (IN) | payer MEDICARE ==
--- NOTE | 2019-02-16 18:41 | ED ---
Altered Mental Status - HPI Summary HPI Summary: This pt is a 73 Y/O F presenting to [facility] with a CC of falling to her knees and being unable to stand back up at 1600. She states that she lives at home with her who helps her around the house. She states that her knees hurt with a 4/10 in severity. She states that she wants to check her blood levels due to her weakness. She has a Hx of high ammonium levels that cause her to be confused and have increased weakness. She states that when she woke up this morning she had slurred speech and confusion that improved after eating breakfast. She denies any fevers, chills, N/V, headaches, SOB and CP. She has no aggravating or alleviating factors. She states that she has a PMhx of DM, HTN, chronic renal failure, and elevated ammonium levels. - History Of Current Complaint Chief Complaint: EDAltMentalStatus Stated Complaint: POSS HIGH AMMONIA LEVELS IN BLOOD PER EMS Time Seen by Provider: 02/16/19 18:20 Hx Obtained From: Patient Last Known Well Date: 02/15/19 before bed Onset/Duration: Unknown Timing: Constant Severity Initially: Mild Severity Currently: None Character: Confusion Aggravating Factor(s): Other - elevated ammonium levels Alleviating Factor(s): Nothing Associated Signs And Symptoms: Positive: Negative - chills, SOB and CP, Weakness. Negative: Nausea, Vomiting, Fever, Headache - Allergies/Home Medications Allergies/Adverse Reactions: Allergies Allergy/AdvReac Type Severity Reaction Status Date / Time No Known Allergies Allergy Verified 01/02/19 07:01 PMH/Surg Hx/FS Hx/Imm Hx Previously Healthy: Yes Endocrine/Hematology History: Reports: Hx Diabetes Cardiovascular History: Reports: Hx Hypertension, Other Cardiovascular Problems/ Disorders - 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 Denies: Hx Pacemaker/ICD GI History: Reports: Other GI Disorders - Gastic ulers, hx non alcoholi cirrhiosis History: Reports: Hx Acute Renal Failure, Hx Chronic Renal Failure - Chronic renal fx r/t naproxen Musculoskeletal History: Reports: Hx Arthritis - knees, Hx Back Problems Sensory History: Reports: Hx Cataracts, Hx Contacts or Glasses - Reading, Hx Hearing Aid - [place] Denies: Hx Deafness Opthamlomology History: Reports: Hx Cataracts, Hx Contacts or Glasses - Reading Neurological History: Reports: Other Neuro Impairments/Disorders - RLS Psychiatric History: Denies: Hx Panic Disorder - Cancer History Cancer Type, Location and Year: BRAIN TUMOR S/P 30 YRS - Surgical History Surgery Procedure, Year, and Place: Tonsillectomy, catarats Infectious Disease History: No Infectious Disease History: Denies: Traveled Outside the [place] in Last 30 Days - Family History Known Family History: Positive: None - Social History Alcohol Use: None Hx Substance Use: No Substance Use Type: Reports: None, Other Substance Use Comment - Amount & Last Used: unknown Smoking Status (MU): Never Smoked Tobacco Review of Systems Negative: Fever, Chills Negative: Chest Pain Negative: Shortness Of Breath Negative: Vomiting, Nausea Positive: Other - bilateral knee pain Positive: Weakness. Negative: Headache All Other Systems Reviewed And Are Negative: Yes Physical Exam - Summary Physical Exam Summary: Constitutional: Well-developed, Well-nourished, Alert. (-) Distressed, Slow speech but alert and oriented, answering questions adequately, no focal deficits. Does not appear encephalopathic. Skin: Warm, Dry HENT: Normocephalic; Atraumatic Eyes: Conjunctiva normal Neck: Musculoskeletal ROM normal neck. (-) JVD, (-) Stridor, (-) Tracheal deviation Cardio: Rhythm regular, rate normal, Heart sounds normal; Intact distal pulses; The pedal pulses are 2+ and symmetric. Radial pulses are 2+ and symmetric. Pulmonary/Chest wall: Effort normal. (-) Respiratory distress, (-) Wheezes, (-) Rales Abd: Soft, (-) tenderness, (-) Distension, (-) Guarding, (-) Rebound, Large abdominal panus, Musculoskeletal: Bilateral lower extremity edema Neuro: Alert, Oriented x3 Psych: Mood and affect Normal Triage Information Reviewed: Yes Vital Signs On Initial Exam: Initial Vitals Temp Pulse Resp BP Pulse Ox 100.9 F 73 18 151/53 100 02/16/19 18:22 02/16/19 18:22 02/16/19 18:22 02/16/19 18:22 02/16/19 18:22 Vital Signs Reviewed: Yes Procedures - Sedation Patient Received Moderate/Deep Sedation with Procedure: No Diagnostics - Vital Signs Vital Signs Temp Pulse Resp BP Pulse Ox 02/16/19 18:22 100.9 F 73 18 151/53 100 - Laboratory Result Diagrams: 02/16/19 18:44 12/22/19 18:44 Lab Statement: Any lab studies that have been ordered have been reviewed, and results considered in the medical decision making process. - Radiology CXR Radiology Interpretation Completed By: ED Physician Summary of Radiographic Findings: No acute infiltrate, no plureal effusion. Pending offical review. Re-Evaluation - Re-Evaluation First Eval Re-Evaluation Time: 19:34 Change: Unchanged Comment: Pt was informed of her test results and is agreeable to an admission for further care. Altered Mental Statu Course/Dx - Course Course Of Treatment: This pt is a 73 Y/O F presenting to [facility] with a CC of falling to her knees and being unable to stand back up at 1600. She states that she lives at home with her who helps her around the house. She states that her knees hurt with a 4/10 in severity. She states that she wants to check her blood levels due to her weakness. She has had similar symptoms which found that she had an elevated ammonium level. Her PE found that she has Large abdominal panus, Bilateral lower extremity edema, and Slow speech but alert and oriented, answering questions adequately, no focal deficits. Does not appear encephalopathic. She has abnormal lab values in the following areas: wbc 17.1, rbc 2.41, Hct 23, Plt count 94, Immature Emmanuel % 24.0, Band Neutrophils 24.0, CO2 17, Glucose 163, Total Bilirubin 1.50, AST 58. Her CXR found the following : No acute infiltrate, no plureal effusion. She will be admitted to [facility] by Dr. Finnegan, Hospitalist, for further care. Her Dx is Sepsis, chronic anemia, chronic renal insufficiency, morbid obesity. She was given Piperacillin during her ED course. - Diagnoses Provider Diagnoses: Chronic anemia, Chronic renal insufficiency, Morbid obesity, SIRS (systemic inflammatory response syndrome) - Provider Notifications Discussed Care Of Patient With: Rosio Finnegan Time Discussed With Above Provider: 19:34 Instructed by Provider To: Admit As Inpatient Admit/Transition Orders Completed By ED Provider: Yes Discharge ED - Sign-Out/Discharge Documenting (check all that apply): Patient Departure - admitted - Discharge Plan Condition: Stable Disposition: ADMITTED TO [facility] Referrals: Rafat Senior MD [Primary Care Provider] - - Billing Disposition and Condition Condition: STABLE Disposition: Admitted to [facility] - Attestation Statements Document Initiated by Germanibaleida: Yes Documenting Scribe: Shukri Poon Provider For Whom Gremanibaleida is Documenting (Include Credential): Owen Betancourt MD Scribe Attestation: Shukri Dunbar, scribed for Owen Betancourt MD on 02/16/19 at 2141. Scribe Documentation Reviewed: Yes Provider Attestation: The documentation as recorded by the Shukri bryant accurately reflects the service I personally performed and the decisions made by me, Owen Betancourt MD Status of Scribe Document: Viewed
[2019-02-16 18:53] LABS: Hematocrit 23 % (35-47); Hemoglobin 7.5 g/dL (12.0-16.0); Mean Corpuscular HGB Conc 32 g/dL (31-36); Mean Corpuscular Hemoglobin 31 pg (27-31); Mean Corpuscular Volume 97 fL (80-97); Mean Platelet Volume 8.2 fL (7.4-10.4); Platelet Count 94 10^3/uL (150-450); Red Blood Count 2.41 10^6 /uL (3.70-4.87); Red Cell Distribution Width 17 % (10-15); White Blood Count 17.1 10^3/uL (3.5-10.8)
[2019-02-16 19:08] LABS: Albumin 2.2 g/dL (3.2-5.2); Albumin/Globulin Ratio 0.6 (1-3); BUN/Creatinine Ratio 10.5 (8-20); Calcium 8.3 mg/dL (8.6-10.3); EGFR African American 20.4 (>60); EGFR Non-African American 16.8 (>60); Globulin 3.5 g/dL (2-4); Potassium 3.6 mmol/L (3.5-5.0); Total Bilirubin 1.5 mg/dL (0.2-1.0); Total Protein 5.7 g/dL (6.4-8.9)
[2019-02-16 19:17] LABS: ABS Lymphocytes 0.8 10^3/ul (1.0-4.8); ABS Monocytes 0.7 10^3/ul (0-0.8); ABS Neutrophils 15.6 10^3/ul (1.5-7.7); Lymphocyte % 4.8 %; Nucleated Red Blood Cells % 0.1
[2019-02-16] MEDS ORDERED: Piperacillin/Tazobac ADVAN(*) 3.375 GM in NS 0.9% 100 ML* 100 ML IVPB ONE (19:30)
[2019-02-16 20:32] LABS: Urine Appearance Cloudy; Urine Bilirubin Negative (Negative); Urine Blood 3+ (Negative); Urine Color Yellow; Urine Glucose Negative (Negative); Urine Ketones Negative (Negative); Urine Nitrite Negative (Negative); Urine Protein 2+(100 mg/dL) (Negative); Urine Specific Gravity 1.012 (1.010-1.030); Urine Urobilinogen Negative (Negative)
[2019-02-16 20:37] LABS: Urine Bacteria Absent (Absent); Urine Red Blood Cell 2+(6-10/hpf) (Absent); Urine Squamous Epithelial Cell Present (Absent); Urine White Blood Cell Trace(0-5/hpf) (Absent)
[2019-02-16] MEDS ORDERED: Acetaminophen TAB* 325 MG PO PRN (21:04)
[2019-02-16] MEDS ORDERED: NS 0.9% 1000 ML** 1,000 ML IV SCH (21:15)
[2019-02-16] MEDS ORDERED: NS 0.9% 1000 ML** 1,000 ML IV ONE (21:26)
[2019-02-16 21:52] LABS: Influenza A Molecular NEGATIVE (Negative); Influenza B Molecular NEGATIVE (Negative)
[2019-02-16] MEDS ORDERED: Zosyn per Pharmacy* NOTE FOLLOW UP SCH (22:00)
[2019-02-16] MEDS ORDERED: Dextrose 50% VIAL 50 ml IV PUSH PRN (22:02)
[2019-02-16 22:14] LABS: TSH (Thyroid Stimulating Horm) 2.32 mcIU/mL (0.34-5.60)
[2019-02-17] MEDS: Insulin GLARGINE(*) 1 UNITS UNIT SUBCUT SCH ×2 (00:11→13:18)
[2019-02-17] MEDS ORDERED: ZOSYN 3.375 GM Q12H per EXTENDED INFUSION IVPB SCH ×2 (00:30)
[2019-02-17] MEDS: oxyCODONE TAB* 5 MG TAB PO PRN ×3 (00:58→20:41)
--- NOTE | 2019-02-17 01:29 | HP ---
CC: Dr. Senior* HISTORY AND PHYSICAL: DATE OF ADMISSION: 02/16/19 PROVIDER: Emily Whelan NP PRIMARY CARE PROVIDER: Dr. Senior. ATTENDING PHYSICIAN WHILE IN THE HOSPITAL: Dr. Rosio Finnegan* (dictated by Emily Whelan NP). CHIEF COMPLAINT: Weakness. HISTORY OF PRESENT ILLNESS: Ms. Hankins is a 73-year-old female with past medical history significant for hypertension, type 2 diabetes, hyperammonia, chronic kidney disease, thrombocytopenia, GERD, anemia, history of gout, history of recent TIA in December 2018, who presented to [facility] [place] with the complaints of weakness. The patient reports that she woke at approximately 10 a.m. this morning. She said she was "not with it." She reports that once she got up and ate breakfast and got into her routine, things improved. The reports that when she woke up this morning at 10 a.m., she had some slurred speech and was inappropriate with her words. He does report that after eating breakfast, her symptoms resolved and she was doing better. He reports that approximately 4 p.m. this evening, she got up from a sitting position to go the bathroom. He assisted her to a standing position. The patient was unsteady and weak with walking and when she got to the bathroom, she fell to her knees. She did not hit her head or have any head injuries, it was a gradual fall to her knee, the reports. Due to her weakness and unsteady gait, she was brought to the emergency room for further evaluation. While in the emergency room, the patient has routine lab work drawn. She was found to have leukocytosis with a white count of 17.9, fever of 100.9. Due to these findings, Hospital Medicine was asked to see and evaluate her for admission. The does report that the patient's speech has returned to baseline now and she is functioning and conversing appropriately at her baseline. PAST MEDICAL HISTORY: Significant for: 1. TIA in December 2018. 2. Hypertension. 3. Type 2 diabetes. 4. Hyperammonia. 5. Chronic kidney disease, stage 3. 6. Thrombocytopenia. 7. GERD. 8. Gout. 9. Anemia. PAST SURGICAL HISTORY: None. HOME MEDICATIONS: Include: 1. Aspirin 81 mg p.o. daily. 2. Atorvastatin 40 mg p.o. daily. 3. Lisinopril 20 mg p.o. daily. 4. [place]-3 fatty acid 1 tablet p.o. daily. 5. Lactulose 30 mL b.i.d. 6. Nystatin cream topically as needed. 7. Oxycodone 10 mg twice daily. 8. Omeprazole 20 mg p.o. daily. 9. Atenolol 50 mg p.o. daily. 10. Allopurinol 300 mg p.o. daily. 11. Furosemide 20 mg alternating with 40 mg every other day. 12. Ferrous sulfate 324 mg b.i.d. 13. Lantus 15 units twice daily. ALLERGIES: No known drug allergies. FAMILY HISTORY: Mother with a history of an AL at the age of 73. Father with a history of an AL at the age of 70. Father with diabetes. No reported history of cancer. SOCIAL HISTORY: The patient denies tobacco, alcohol or illicit drug use. She is . She lives with her . Surrogate decision maker in the event she is unable to make her own decisions is her . She is a full code. REVIEW OF SYSTEMS: She denies any fever, chills, unintended weight loss. She denies any chest pain or edema. Denies any cough, hemoptysis or shortness of breath. No nausea, vomiting, diarrhea, or abdominal pain. She does report chronic loose stools due to her lactulose. She denies any gross hematuria, dysuria, urinary frequency, urgency or pain, burning with urination. She does complain of generalized weakness. Denies any visual complaints, dysphagia, arthralgias. She does complain of pain to bilateral knees, which is chronic. She does report redness to her groin and under her breast. She denies any psychosis or anxiety. PHYSICAL EXAMINATION GENERAL: At this time, Ms. Hankins is alert and oriented, resting on the stretcher in the emergency room. Her speech is clear. Thought process is intact. There is no gross focal deficit. VITAL SIGNS: Blood pressure 138/63, heart rate is 67, respirations are 18, O2 saturation 100% on room air, temperature is 100.9. HEENT: Head is atraumatic, normocephalic. Eyes: EOMs are intact. Sclerae anicteric and not pale. Oral mucosa is dry. NECK: Supple. LUNGS: Clear to auscultation bilaterally. No wheezes, rales, or rhonchi. CARDIAC: S1, S2. Regular rate and rhythm. She does have a systolic murmur. No rubs or gallops. ABDOMEN: Obese, soft, and nontender. Bowel sounds are present x4. NEUROLOGIC: She is awake, alert, oriented x3. Her speech is clear. Thought process is intact. [id number] is intact. Handgrips are equal. There is no pronator drift. Push-pull is intact. Sensation is intact to all 4 extremities. Pupils are equal and reactive at 2 mm. Tongue is midline. Smile is equal. Legs, lower extremities, she is unable to lift her legs due to her morbid obesity. Push- pull to her legs is intact. Sensation is intact to her lower legs. SKIN: She does have a large pannus with brown discoloration to skin. Her groin is excoriated with redness and excoriated redness under her bilateral breasts. She does have dry skin noted to her feet, but no open lesion. She does have 3 small skin tears noted to her left lower abdomen. DIAGNOSTIC STUDIES/LAB DATA: WBCs are 17.1, RBCs 2.41, hemoglobin 7.5, hematocrit is 23, platelet count is 94. Sodium 135, potassium 3.6, chloride 106 , carbon dioxide 17. Anion gap is 12. BUN is 29, creatinine 2.76. Glucose is 163. Lactic acid was 4.6. Calcium 8.3. Magnesium is pending. ASTs were 58, ALTs were 15 and alkaline phosphatase was 89. Ammonia was 52. BNP was greater than 1300. Urine, pH is 5.0, specific gravity 1.012, urine protein was 2+, ketones were negative, urine blood was 3+; nitrites, bilirubin, urobilinogen, urine leukocyte esterase was negative; urine wbc's were trace, rbc's were 2+, squamous epithelial cells were present, bacteria was absent, hyaline casts were present, glucose was negative. Flu A and B are currently pending. Her chest x-ray was reviewed by me, shows no acute findings. Radiology reading is pending at this time. CT of the brain is pending. ASSESSMENT AND PLAN: Ms. Hankins is a 73-year-old female with past medical history significant for recent transient ischemic attack; hypertension; type 2 diabetes; hyperammonia; chronic kidney disease, stage 3; thrombocytopenia, gastroesophageal reflux disease, gout, history of anemia, who presented to the emergency room with the complaints of weakness. She will be admitted under observation for: 1. Fever. I suspect her fever could be contributing to her underlying weakness. It is unclear as to the cause of her fever at this time. Flu, influenza swab is currently pending at this time. Urine is essentially within normal limits. Culture is currently pending. Chest x-ray does not appear to show pneumonia. The patient denies any cough, congestion, rhinorrhea, or any upper respiratory tract symptoms. The patient denies any abdominal pain, denies any nausea or vomiting. The patient did receive Zosyn in the emergency room. We will continue her on Zosyn due to her leukocytosis and temperature meeting systemic inflammatory response syndrome criteria. The also did have a lactic acid in the emergency room that was elevated at 4.6. I suspect this is related to intravascular dehydration as the patient does not appear to be in septic shock. The does meet SIRS criteria with leukocytosis and temperature 100.9, but has no clear source at this time. 2. Weakness. I suspect her weakness is related to likely some intravascular dehydration and fever of unknown origin. Her weakness could also be related to her anemia. Her anemia appears to be worse than her baseline. This as well could be contributing to her weakness at home today. 3. Anemia. The patient's H and H today was 7.5 and 23, which is below her baseline. I will get a stool for guaiac. We will repeat CBC in the a.m. and monitor her for further signs of bleeding. At this point, the patient denies any black or tarry stools. She denies any vomiting of blood. She denies any abdominal pain. If the patient has further decrease in her H and H, I would recommend a consult to Gastroenterology for source of bleeding. The patient recently had iron studies in the beginning of December. At that time, her iron was within normal limits as well as her B12 was also within normal limits. 4. Thrombocytopenia. The patient does have thrombocytopenia chronically. Her platelets count is 94 today, which is below her normal. We will continue to monitor her platelet count. I suspect her decrease in platelets count could be associated with underlying infection. We will continue to monitor. 5. Lactic acidosis. The patient does have an elevated lactic acid. It was reported that the patient was a difficulty to obtain blood from. I will get a repeat lactic acid, as the patient does not appear septic or in septic shock at this time. The patient is not hypotensive or tachycardic. I suspect that her lactic acid is elevated due to intravascular dehydration. I will give her a small amount of fluid. I will not give the 30/kg bolus as the patient does have lymphedema to her abdomen and +2 pitting edema to her lower extremities. At this point, she appears to be intravascularly dry, but extravascularly fluid overloaded. 6. Edema. The patient does have some chronic lymphedema to her abdomen. She does have +1 to +2 pitting edema to bilateral lower extremities but appears to be intravascularly dry. I am going to give her a small amount of fluid and monitor her closely. 7. Slurred speech. The patient did have an episode of slurred speech this morning prior to eating breakfast, which resolved after eating breakfast. Given the patient's recent history of a TIA, I will get a CT of the brain. I do not feel the patient needs a further repeat transthoracic echocardiogram or carotid studies as the patient recently had a TIA workup in December of this year. I will leave her on aspirin 81 mg. I am going to hold off on adding Plavix at this time as the patient is more anemic and has a platelet count of 94 which is below her baseline. I would recommend a consultation to Neurology in the morning for further recommendations given the concern of patient having recent TIA and positive bubble study. The patient is currently back at her baseline with no slurred speech and no current neurologic symptoms at this time. I will place her on neuro checks q. 4 hours overnight. Continue aspirin and statin. 8. Type 2 diabetes. The patient will be continued on her Lantus 15 units subcu b.i.d. and fingersticks a.c. and h.s. with lispro sliding scale. 9. History of gout. She will continue on allopurinol 300 mg p.o. daily. 10. Acute kidney injury. The patient does have acute kidney injury with superimposed chronic kidney disease, stage 3. I suspect this is due to intravascular dehydration. We will give her a small amount of fluid and repeat a BMP in the a.m. and continue to monitor her renal function. I am going to hold her lisinopril and Lasix due to the elevation in her renal function. 11. Hypertension. I am going to hold her lisinopril. The patient is normotensive at this time with a blood pressure 126/47. We will continue to monitor and hold the lisinopril due to her acute kidney injury. 12. Gastroesophageal reflux disease. She will continue on omeprazole as previously prescribed. 13. FEN. She can have her consistent carb diet. 14. Code status. She is a full code. 15. DVT prophylaxis. I am going to hold off on chemical DVT prophylaxis at this time as the patient has platelets count of 94 and worsening anemia, concern for bleeding. I will place her on SCDs. 16. History of elevated ammonia level. I will continue her on lactulose 30 mL b.i.d. as previously prescribed. TIME SPENT: Time spent on this admission was 60 minutes; greater than half that time was spent at the bedside reviewing the events leading thus far to her hospitalization, performing physical exam, and reviewing my plan of care. I have discussed this with my attending, Dr. Rosio Finnegan; she is in agreement with my plan. EMILY WHELAN, ELOISA [id number]/[facility] #: [id number] [place]
[2019-02-17 07:02] LABS: ABS Monocytes 1.1 10^3/ul (0-0.8); ABS Neutrophils 11.4 10^3/ul (1.5-7.7); Eosinophil % 0.1 %; Hematocrit 21 % (35-47); Hemoglobin 6.7 g/dL (12.0-16.0); Mean Corpuscular HGB Conc 33 g/dL (31-36); Mean Corpuscular Hemoglobin 32 pg (27-31); Mean Corpuscular Volume 97 fL (80-97); Mean Platelet Volume 8.5 fL (7.4-10.4); Platelet Count 75 10^3/uL (150-450); Red Blood Count 2.11 10^6 /uL (3.70-4.87); Red Cell Distribution Width 18 % (10-15); White Blood Count 14.5 10^3/uL (3.5-10.8)
[2019-02-17 07:12] LABS: BUN/Creatinine Ratio 11.1 (8-20); Calcium 8.3 mg/dL (8.6-10.3); EGFR Non-African American 16.6 (>60); Potassium 4.3 mmol/L (3.5-5.0)
[2019-02-17] MEDS: Ferrous Gluconate TAB* 324 MG TAB PO SCH ×2 (08:16→20:41)
[2019-02-17] MEDS: Pantoprazole TAB * 40 MG TAB PO SCH (08:16)
[2019-02-17] MEDS: Aspirin EC TAB* 81 MG TAB.EC PO SCH (08:16)
[2019-02-17] MEDS: Allopurinol TAB* 300 MG PO SCH (08:16)
[2019-02-17] MEDS: Atenolol TAB* 50 MG PO SCH (08:16)
[2019-02-17] MEDS: Insulin LISPRO* 1 UNITS UNIT SUBCUT SCH ×3 (08:16→17:22)
[2019-02-17] MEDS: Nystatin TOP POWDER* 15 GM BTL TOPICAL SCH ×2 (08:38→20:47)
--- NOTE | 2019-02-17 08:40 | PN ---
Subjective Date of Service: 02/17/19 Interval History: Critical labs reported to me this am: lactic acid 3.3, blood cultures positive for GPCs Dirk is feeling okay this morning, she describes a generalized weakness yesterday when she woke up, had trouble ambulating to the bathroom, which she usually does independently. She has no pain this morning, no shortness of breath. She reports taking extra lactulose yesterday because they were concerned her ammonia was high and causing the weakness, so she has been having frequent bowel movements, but no melena or hematochezia. Objective Active Medications: Acetaminophen (Tylenol Tab*) 650 mg PO Q4H PRN PRN Reason: MILD PAIN or TEMP > 100.4 Allopurinol (Zyloprim Tab*) 300 mg PO DAILY [facility] Last Admin: 02/17/19 08:16 Dose: 300 mg Aspirin (Aspirin Ec Tab*) 81 mg PO DAILY [facility] Last Admin: 02/17/19 08:16 Dose: 81 mg Atenolol (Tenormin Tab*) 50 mg PO DAILY [facility] Last Admin: 02/17/19 08:16 Dose: 50 mg Atorvastatin Calcium (Lipitor*) 40 mg PO 1700 [facility] Dextrose (Dextrose 50% Vial 50 Ml*) 25 ml IV PUSH .FOR FS < 60 - SS PRN PRN Reason: FS < 60 Ferrous Gluconate (Fergon Tab*) 324 mg PO BID [facility] Last Admin: 02/17/19 08:16 Dose: 324 mg Piperacillin Sod/Tazobactam (Sod 3.375 gm/ Sodium Chloride) 100 mls @ 25 mls/ hr IVPB Q12H [facility] Last Admin: 02/17/19 00:30 Dose: 25 mls/hr Insulin Glargine (Lantus(*)) 15 units SUBCUT Q12H [facility] Last Admin: 02/17/19 00:11 Dose: 15 units Insulin Human Lispro (Humalog*) 0 units SUBCUT AC [facility]; Protocol Last Admin: 02/17/19 08:16 Dose: 3 units Lactulose (Lactulose*) 30 ml PO BID [facility] Last Admin: 02/17/19 08:16 Dose: 30 ml Nystatin (Nystatin Top Powder*) 1 applic TOPICAL BID [facility] Oxycodone HCl (Roxycodone Tab*) 5 mg PO QID PRN PRN Reason: PAIN - MODERATE Last Admin: 02/17/19 00:58 Dose: 5 mg Pantoprazole Sodium (Protonix Tab*) 40 mg PO DAILY [facility] Last Admin: 02/17/19 08:16 Dose: 40 mg Pharmacy Consult (Zosyn Per Pharmacy*) 1 note FOLLOW UP .ZOSYN PER PHARMACY [facility] Vital Signs - 8 hr 02/17/19 02/17/19 02/17/19 00:58 03:15 07:51 Temperature 98.2 F Pulse Rate 65 Respiratory 18 20 20 Rate Blood Pressure 118/40 (mmHg) O2 Sat by Pulse 100 Oximetry Oxygen Devices in Use Now: None Appearance: alert, well appearing, wearing a snow hat Eyes: No Scleral Icterus Ears/Nose/Mouth/Throat: NL Teeth, Lips, Gums Neck: - - unable to see jugular veins Cardiovascular: RRR, - - systolic murmur RUSB with radiation to LUSB, none to carotids Abdominal: - - obese with lower abdominal lymphedema; there are two popped empty blisters on the LLQ Extremities: - - 1+ edema b/l Skin: - - very dry skin, no open skin Neurological: Alert and Oriented x 3 Result Diagrams: 02/17/19 06:37 02/17/19 06:37 Microbiology and Other Data: Microbiology 02/16/19 20:03 Aerobic Blood Culture - Preliminary Blood Venous Anaerobic Blood Culture - Preliminary 02/16/19 20:03 Aerobic Blood Culture - Preliminary Blood Venous 02/17/19 00:37 Stool Occult Blood (MALIHA) - Final Stool Assess/Plan/Problems-Billing Assessment: - Patient Problems (1) Sepsis Current Visit: Yes Status: Acute Comment: severe sepsis likely related to bloodstream infection s/p volume resuscitation, continue IVF today (BNP elevation noted; will slow down IVF, comfortable on room air) (2) Bacteremia Current Visit: Yes Status: Acute Code(s): R78.81 - BACTEREMIA SNOMED Code( s): 0439586 Comment: 2/4 bottles from 02/16 are growing GPCs will add vanc to zosyn I am suspecting abdominal lymphedema/skin breakdown as the source. repeat daily blood cultures (3) Fever Current Visit: Yes Status: Acute Code(s): R50.9 - FEVER, UNSPECIFIED SNOMED Code(s): 897828901 Comment: resolved, source now clear (4) Acute kidney injury Current Visit: No Status: Acute Priority: High Onset Date: 03/19/14 Code (s): N17.9 - ACUTE KIDNEY FAILURE, UNSPECIFIED SNOMED Code(s): 94638277 Comment: likely related to sepsis on CKD improved since yesterday after volume resuscitation; replete with blood today (5) Anemia Current Visit: No Status: Acute Code(s): D64.9 - ANEMIA, UNSPECIFIED SNOMED Code(s): 742040571 Comment: lower than baseline; FOBT + in combination with CKD transfuse 1U today (6) Thrombocytopenia Current Visit: No Status: Acute Code(s): D69.6 - THROMBOCYTOPENIA, UNSPECIFIED SNOMED Code(s): 728367072 Comment: chronic but worsened in setting of sepsis (7) Weakness Current Visit: No Status: Acute Code(s): R53.1 - WEAKNESS SNOMED Code(s): 68217485 Comment: likely multifactorial and related to deconditioning, anemia, sepsis will ultimately need a PT eval, but not yet (8) Chronic pain syndrome Current Visit: Yes Status: Acute Code(s): G89.4 - CHRONIC PAIN SYNDROME SNOMED Code(s): 695004953 Comment: continue oxycodone (9) Diabetes mellitus Current Visit: No Status: Chronic Code(s): E11.9 - TYPE 2 DIABETES MELLITUS WITHOUT COMPLICATIONS SNOMED Code(s): 59189575 Comment: continue lantus 15U nightly
[2019-02-17] MEDS ORDERED: Vancomycin per Pharmacy* NOTE FOLLOW UP SCH ×2 (09:00)
[2019-02-17] MEDS ORDERED: Vancomycin(*) 2,000 MG in NS 0.9% 500 ML* 500 ML IVPB ONE (09:00)
--- NOTE | 2019-02-17 13:18 | CONS ---
CONSULTATION REPORT: DATE OF CONSULT: 02/17/19 REQUESTING PHYSICIAN: Dr. Devi. CONSULTING SERVICE: Infectious Disease. REASON FOR CONSULT: Bacteremia. IMPRESSION: 1. Bacteremia with gram-positive cocci in chains in 2/4 blood culture bottles, resembled Strep by Gr am stain. Her only focal finding is a pannus with lymphedema and some ruptured blisters without sign ificant cellulitis currently, but may have been there preceding antibiotics. She has not had symptom s to suggest subacute endocarditis. She could have acute infective endocarditis. She does not have any prosthetic material present. She does not have any urinary complaints. She does have liver dise ase, though it is not clear that she has ascites and did not have any new abdominal pain this admissi on. 2. Chronic kidney disease. 3. Liver disease with hyperammonemia. 4. Type 2 diabetes. RECOMMENDATIONS: Stop Zosyn. Start ceftriaxone 2 g a day. We will recheck the blood cultures. She should have a transthoracic echocardiogram as the first next step in workup. HISTORY OF PRESENT ILLNESS: This 73-year-old woman with morbid obesity and pannus with dependent lym phedema, admitting with fall, weakness without preceding fevers, chills, sweats, anorexia. Here, she had a fever. She was started on Zosyn. She was felt to have an abdominal wall cellulitis based on some blisters that have been present in the last few days. Her initial white count was 17,000 yester day, it is 14,000 today. Blood cultures 2/4 bottles growing gram-positive cocci resembling Strep. S he has no new pain. She does have chronic back and joint pain, which is unchanged. She is feeling m ore like herself today. No swollen or painful joints. No prosthetic material present. PAST MEDICAL HISTORY: 1. Morbid obesity. 2. Lymphedema of pannus. 3. TIA. 4. Hypertension. 5. Type 2 diabetes. 6. Hyperammonemia. 7. Stage 3 chronic kidney disease. 8. Thrombocytopenia. 9. Gastroesophageal reflux disease. 10. Gout. 11. Anemia. ALLERGIES: No known drug allergies. MEDICATIONS: 1. Tylenol. 2. Allopurinol. 3. Aspirin. 4. Atenolol. 5. Atorvastatin. 6. Ferrous gluconate twice a day. 7. Insulin glargine. 8. Lactulose twice a day. 9. Oxycodone as needed. 10. Pantoprazole daily. 11. Zosyn 3.375 g every 12 hours. SOCIAL HISTORY: She lives with her . She is a nonsmoker. No travel. FAMILY HISTORY: Mother had an WA at age 73. Father had an WA at age 70. REVIEW OF SYSTEMS: All negative, except as noted above to a 12-point review. PHYSICAL EXAM: Vital Signs: Temperature is 37, heart rate 60, respiratory rate 20, blood pressure 1 18/40, oxygen saturation 100% on room air. In general, she is awake, not in distress. Neurologic: She is oriented x3. Follows all commands. HEENT: There is no conjunctival hemorrhage. Oropharynx w ithout lesions. Neck is supple without mass. Heart is regular rate and rhythm with murmurs, rubs, o r gallops. Lungs are clear to auscultation bilaterally. Abdomen is obese. The pannus does have a d ependent lymphedema. There are some lower anterior ruptured blisters at the site of friction with he r thighs. There is no erythema or tenderness. No fluctuance. Skin: There is no rash or splinter h emorrhage. Musculoskeletal: There is no spine tenderness to palpation or joint synovitis. LABORATORY DATA: White blood cell count 14, hemoglobin 6.7, platelets 75. Creatinine 2.8, BUN 31. Please see impression and recommendations outlined above. Thank you for asking me to see Ms. Dirk Hankins in consultation. [id number]/[facility] #: [id number]
[2019-02-17] MEDS: cefTRIAXone(*) 2 GM in NS 0.9% 100 ML* 100 ML IVPB SCH (16:45)
--- NOTE | 2019-02-17 16:59 | CONS ---
CONSULTATION REPORT: DATE OF CONSULT: 02/17/19 INDICATION: Anemia. NARRATIVE: Ms. Dirk Hankins is a 73-year-old female who has a history of hypertension, type 2 diabe lucy, obesity, chronic kidney disease, elevated ammonias, thrombocytopenia, TIA, anemia, gout and GERD , who presented to the hospital yesterday with weakness. She states that she was feeling fine up unt il Sunday morning. She felt confused. A family member thought that they heard slurred speech. She did fall down unfortunately. EMS was called and she was brought to the emergency room for further ev aluation. The patient was admitted to the hospital with fever, weakness, and anemia. We were called due to the anemia. The patient denies any blood in the stool. Her son was with her today in the ro om and he also states that she has not seen any blood in her stools. She denies any abdominal pain. No nausea. No vomiting. Of note, she did have an upper endoscopy with Dr. Vera in 2014, which re vealed a large gastric ulcer presumably secondary to Advil use. She denies any recent Advil or NSAID s other than aspirin 81 mg on a daily basis. PAST MEDICAL HISTORY: Please see the HPI. PAST SURGICAL HISTORY: None. MEDICATIONS: At home include: 1. Lantus. 2. Lasix. 3. Allopurinol. 4. Atenolol. 5. Omeprazole. 6. Oxycodone. 7. Lactulose. 8. Lisinopril. 9. Atorvastatin. 10. Aspirin. ALLERGIES: None. FAMILY HISTORY: Coronary artery disease, diabetes. SOCIAL HISTORY: She denies any tobacco or alcohol use. REVIEW OF SYSTEMS: Please see the HPI, other than that mentioned in the HPI were unremarkable for 12 systems review. PHYSICAL EXAM: Temperature is 97.9, blood pressure is 139/51, pulse is 65, respiratory rate of 16, O 2 sat is 100%. General: Chronically ill-appearing female, lying flat in bed, alert, oriented, pleas ant, and fluent. HEENT: Mucous membranes are moist without lesions, ulcers, or exudate. Dentition is poor. Neck is supple. Trachea is midline. Heart: Regular rate and rhythm. Lungs: Coarse jaleel th sounds bilaterally. Abdomen is obese. Positive bowel sounds, soft, nontender, nondistended. No hepatosplenomegaly, masses, rebound, or guarding. Skin is warm and dry. DIAGNOSTIC STUDIES/LAB DATA: Labs of note, hemoglobin is 6.7 down from 7.5, baseline is low 9s; whit e count is 14.5; platelets of 75. No liver function tests were evaluated. ASSESSMENT AND PLAN: This is a 73-year-old female with anemia and a history of elevated ammonias wit h thrombocytopenia. Regarding her anemia, she has had a gastric ulcer in the past. Now given the fa ct that she has elevated ammonias in addition to a low platelet count, I do wonder if she could have some degree of portal hypertension, which would make esophageal varices a potential consideration. At this point, I think the patient does warrant another upper endoscopy to look for peptic ulcer diseas e and/or varices. She is understanding and agreeable. We will make arrangements for her EGD tomorro w, on Sunday. [id number]/[facility] #: [id number]
[2019-02-17] MEDS: Atorvastatin* 40 MG TAB PO SCH (17:22)
[2019-02-18] MEDS: Insulin GLARGINE(*) 1 UNITS UNIT SUBCUT SCH ×3 (00:02→22:56)
[2019-02-18 01:28] LABS: Albumin 1.6 g/dL (3.2-5.2); Albumin/Globulin Ratio 0.6 (1-3); Calcium 7.7 mg/dL (8.6-10.3); EGFR African American 20.5 (>60); Globulin 2.9 g/dL (2-4); Potassium 3.5 mmol/L (3.5-5.0); Total Bilirubin 1.8 mg/dL (0.2-1.0); Total Protein 4.5 g/dL (6.4-8.9)
[2019-02-18 01:32] LABS: ABS Eosinophils 0.4 10^3/ul (0-0.6); ABS Monocytes 1.2 10^3/ul (0-0.8); ABS Neutrophils 9.3 10^3/ul (1.5-7.7); Eosinophil % 3.2 %; Hematocrit 20 % (35-47); Hemoglobin 6.6 g/dL (12.0-16.0); Lymphocyte % 15.6 %; Mean Corpuscular HGB Conc 33 g/dL (31-36); Mean Corpuscular Hemoglobin 31 pg (27-31); Mean Corpuscular Volume 94 fL (80-97); Mean Platelet Volume 9.1 fL (7.4-10.4); Platelet Count 75 10^3/uL (150-450); Red Blood Count 2.11 10^6 /uL (3.70-4.87); Red Cell Distribution Width 18 % (10-15)
[2019-02-18] MEDS ORDERED: Flumazenil* 0.1 MG/ML 5 ML MDV ONE (07:40)
[2019-02-18] MEDS ORDERED: fentaNYL* 50 MCG/ML 2 ML VIAL (100 MCG VIAL) ONE ×2 (07:40→12:56)
[2019-02-18] MEDS ORDERED: Naloxone* 0.4 MG/ML 1 ML VIAL ONE (07:40)
[2019-02-18] MEDS ORDERED: Midazolam* 1 MG/ML 5 ML VIAL (5 MG) ONE ×2 (07:40→12:56)
[2019-02-18] MEDS ORDERED: Lidocaine 2% VISCOUS* 15 ML UDC ONE (07:40)
[2019-02-18] MEDS ORDERED: Influenza VAC *QUAD* 2019-20* 0.5 ML SYRINGE IM ONE (09:00)
--- NOTE | 2019-02-18 09:40 | TEE ---
*[facility]* [place] [address] Fax #: [phone] Transesophageal Echocardiogram Patient: Bonnie Bae : 1945 Study Date: 02/18/2019 Age: 73 Gender: F HR: 60 bpm Height: 63 in /160 cm BSA: 2.57 m^2 Weight: 389.2 lb /176.9 kg BMI: 69.1 kg/m^2 *[employer] Supervisor: * Elza Joregnsen [facility] *Referring Physician: * Janelle Devi *Reading Physician: * Femi Aguirre MD Indications: Bacteremia. CVA. History: Risk factors: Hypertension. Diabetes mellitus. Morbidly obese. Conclusions Summary: - Left ventricle: Systolic function is normal. The estimated ejection fraction is 60-65%. - Right ventricle: Systolic function is mildly reduced. - Left atrium: The atrium is mildly dilated. - Right atrium: The atrium is moderately dilated. - Atrial septum: There is a small patent foramen ovale. Predominent left to right color doppler shunt with some spontaneous shunts of agitated saline right to left. There was also delayed appearance of agitated saline contrast in the LA suggestive of possible transpulmonary passage or shunt. - Mitral valve: There is mild regurgitation, with multiple jets. - Aortic valve: The findings are consistent with mild stenosis. - Tricuspid valve: There is mild-moderate regurgitation. - Aorta: There is minimal atherosclerotic plaque visualized in the Transverse Aorta. - No obvious vegetations noted on this exam. Study data: Diagnostic Transesophageal Echocardiogram Consent: The risks and benefits of the procedure, including alternatives were discussed with the patient and/or their health care customer relations representative and written informed consent was obtained. Procedure: Initial setup: The patient was brought to the laboratory in the fasting state.Intravenous access was obtained. Surface ECG leads, heart rate, heart rhythm, blood pressure measurements, pulse oximetric signals, and mainstream end-tidal CO2 tracings were monitored throughout the procedure. Sedation. Moderate sedation was administered by nursing staff. History and physical as well as labs were reviewed. An oral bite block was inserted for protection of oral dentition. The patient was placed in the left lateral decubitus position. A transesophageal probe was inserted by the attending warehouse checker. Transesophageal echocardiography was performed, image quality was excellent, and all standard views were attempted within the limitations of patient tolerance and safety. Multiple 2D, color flow Doppler and spectral Doppler images were obtained. The transesophageal probe was removed. A bubble study was performed. Location: Procedure room. Patient status: Inpatient. Patient room number: 439. Study completion: The patient tolerated the procedure well. There were no complications. Administered medications: Midazolam, 4mg. Fentanyl, 25mcg. Rhythm: Normal sinus rhythm with PAC's. Findings Left ventricle: The cavity size is normal. Sigmoid septum. Mild turbulance in left ventricular outflow tract. Systolic function is normal. The estimated ejection fraction is 60-65%. Right ventricle: The cavity size is normal. Systolic function is mildly reduced. Left atrium: The atrium is mildly dilated. Emptying velocity is mildly reduced. There is no evidence of a thrombus in the atrial cavity or appendage. Right atrium: The atrium is moderately dilated. Atrial septum: There is a small patent foramen ovale. Predominent left to right color doppler shunt with some spontaneous shunts of agitated saline right to left. There was also delayed appearance of agitated saline contrast in the LA suggestive of possible transpulmonary passage or shunt. Bubble study images 52 and 53. Mitral valve: The leaflets are mildly thickened. There is no evidence of a vegetation. There is no evidence of stenosis. There is mild regurgitation, with multiple jets. Aortic valve: The leaflets are mildly thickened. Valve mobility is mildly restricted. There is no evidence of a vegetation. The findings are consistent with mild stenosis. There is no significant regurgitation. Tricuspid valve: There is no evidence of a vegetation. There is no evidence of stenosis. There is mild-moderate regurgitation. Pulmonic valve: There is no evidence of a vegetation. There is no evidence of stenosis. There is turbulent flow visualized in the pulmonary artery. There is trace regurgitation. Aorta: There is minimal atherosclerotic plaque visualized in the Transverse Aorta. Aortic root: The aortic root is appears normal. Ascending aorta: The ascending aorta is appears normal. Pericardium: There is no significant pericardial effusion. Pulmonary arteries: The main pulmonary artery is normal-sized. Systemic veins: Inferior vena cava: The vessel is normal in size. Superior vena cava: The vessel is appears normal. Pulmonary veins: Well visualized. The Pulmonary veins appear normal. 2 of 4 visualized. Measurements Aortic valve Value Ref Ascending aorta Value Ref Ana diam, ED 2.1 cm ---- AAo AP diam, S 3.1 cm ---- Aortic root Value Ref Root diam 3.1 cm <4.6 Legend: (L) and (H) anna values outside specified reference range. Prepared and electronically signed by Femi Aguirre MD 02/18/2019 09:39
[2019-02-18] MEDS: Insulin LISPRO* 1 UNITS UNIT SUBCUT SCH ×3 (10:14→19:20)
[2019-02-18] MEDS: Atenolol TAB* 50 MG PO SCH (10:29)
[2019-02-18] MEDS: Ferrous Gluconate TAB* 324 MG TAB PO SCH ×2 (10:38→21:35)
[2019-02-18] MEDS: Allopurinol TAB* 300 MG PO SCH (10:38)
[2019-02-18] MEDS: Pantoprazole TAB * 40 MG TAB PO SCH ×2 (10:38→21:35)
[2019-02-18 10:39] LABS: Hematocrit 24 % (35-47); Hemoglobin 7.9 g/dL (12.0-16.0); Mean Corpuscular HGB Conc 34 g/dL (31-36); Mean Corpuscular Hemoglobin 31 pg (27-31); Mean Corpuscular Volume 93 fL (80-97); Mean Platelet Volume 9.5 fL (7.4-10.4); Platelet Count 85 10^3/uL (150-450); Red Blood Count 2.53 10^6 /uL (3.70-4.87); Red Cell Distribution Width 19 % (10-15)
[2019-02-18] MEDS: Nystatin TOP POWDER* 15 GM BTL TOPICAL SCH ×2 (10:40→21:35)
[2019-02-18] MEDS: Aspirin EC TAB* 81 MG TAB.EC PO SCH (10:49)
--- NOTE | 2019-02-18 12:12 | PN ---
Subjective Date of Service: 02/18/19 Interval History: Received another unit of blood overnight. Feels fine this morning, has no complaints. She walked to the bathroom without difficulty. Objective Active Medications: Acetaminophen (Tylenol Tab*) 650 mg PO Q4H PRN PRN Reason: MILD PAIN or TEMP > 100.4 Allopurinol (Zyloprim Tab*) 300 mg PO DAILY REPLACED BY [facility] Last Admin: 02/18/19 10:38 Dose: 300 mg Atenolol (Tenormin Tab*) 50 mg PO DAILY REPLACED BY [facility] Last Admin: 02/18/19 10:29 Dose: Not Given Atorvastatin Calcium (Lipitor*) 40 mg PO 1700 REPLACED BY [facility] Last Admin: 02/17/19 17:22 Dose: 40 mg Dextrose (Dextrose 50% Vial 50 Ml*) 25 ml IV PUSH .FOR FS < 60 - SS PRN PRN Reason: FS < 60 Ferrous Gluconate (Fergon Tab*) 324 mg PO BID REPLACED BY [facility] Last Admin: 02/18/19 10:38 Dose: 324 mg Ceftriaxone Sodium 2 gm/ (Sodium Chloride) 100 mls @ 200 mls/hr IVPB Q24H REPLACED BY [facility] Last Admin: 02/17/19 16:45 Dose: 200 mls/hr Insulin Glargine (Lantus(*)) 15 units SUBCUT Q12H REPLACED BY [facility] Last Admin: 02/18/19 00:02 Dose: 15 units Insulin Human Lispro (Humalog*) 0 units SUBCUT AC REPLACED BY [facility]; Protocol Last Admin: 02/18/19 10:14 Dose: Not Given Lactulose (Lactulose*) 30 ml PO 0900,1500 REPLACED BY [facility] Last Admin: 02/18/19 10:40 Dose: Not Given Nystatin (Nystatin Top Powder*) 1 applic TOPICAL BID REPLACED BY [facility] Last Admin: 02/18/19 10:40 Dose: 1 applic Oxycodone HCl (Roxycodone Tab*) 5 mg PO QID PRN PRN Reason: PAIN - MODERATE Last Admin: 02/17/19 20:41 Dose: 5 mg Pantoprazole Sodium (Protonix Tab*) 40 mg PO DAILY REPLACED BY [facility] Last Admin: 02/18/19 10:38 Dose: 40 mg Vital Signs - 8 hr 02/18/19 02/18/19 02/18/19 07:00 07:12 07:38 Temperature 98.2 F Pulse Rate 54 Respiratory 16 18 21 Rate Blood Pressure 127/46 (mmHg) O2 Sat by Pulse 100 Oximetry 02/18/19 02/18/19 09:29 10:45 Temperature 98.3 F 97.9 F Pulse Rate 53 55 Respiratory 20 18 Rate Blood Pressure 101/33 118/37 (mmHg) O2 Sat by Pulse 99 100 Oximetry Oxygen Devices in Use Now: None Appearance: alert, well appearing Eyes: No Scleral Icterus Ears/Nose/Mouth/Throat: NL Teeth, Lips, Gums Neck: NL Appearance and Movements; NL JVP Respiratory: Symmetrical Chest Expansion and Respiratory Effort Cardiovascular: - - systolic murmur throughout Abdominal: - - large pannus, nontender, lymphedema changes RLQ, LLQ Extremities: - - 1+ edema b/l Skin: - - 2 open blisters on pannus; feet are extremely dry. scattered echymoses over arms and chest. Result Diagrams: 02/18/19 10:27 02/18/19 00:59 Microbiology and Other Data: Microbiology 02/16/19 20:03 Aerobic Blood Culture - Preliminary Blood Venous Anaerobic Blood Culture - Preliminary 02/16/19 20:03 Aerobic Blood Culture - Preliminary Blood Venous 02/17/19 00:37 Stool Occult Blood (MALIHA) - Final Stool Assess/Plan/Problems-Billing Assessment: This is a 73 year old woman with history of ?cirrhosis/evidence of portal hypertension, CKD, TIA, and lymphedema admitted on 02/16 with weakness, found to have anemia and bacteremia. - Patient Problems (1) Sepsis Current Visit: Yes Status: Acute Comment: severe sepsis likely related to bloodstream infection + acute on chronic anemia s/p volume resuscitation, can dc IVF now (2) Bacteremia Current Visit: Yes Status: Acute Code(s): R78.81 - BACTEREMIA SNOMED Code( s): 7720637 Comment: 02/16 blood cultures growing Strep canis. (of note, she has 3 greyhounds and another dog from [place] and [place], which may be pertinent, maybe not) ... discussed with Dr. Bowen; may reflect an immunocompromised status Dr. Bowen is following; switched vanc/zosyn to ceftriaxone yesterday I am suspecting abdominal lymphedema/skin breakdown as the source. SANTOS this morning did not show any vegetations repeat daily blood cultures (3) Fever Current Visit: Yes Status: Acute Code(s): R50.9 - FEVER, UNSPECIFIED SNOMED Code(s): 227875246 Comment: resolved, source now clear (4) Acute kidney injury Current Visit: No Status: Acute Priority: High Onset Date: 03/19/14 Code (s): N17.9 - ACUTE KIDNEY FAILURE, UNSPECIFIED SNOMED Code(s): 46867657 Comment: likely related to sepsis on CKD improved since yesterday after volume resuscitation; replete with blood today (5) Anemia Current Visit: No Status: Acute Code(s): D64.9 - ANEMIA, UNSPECIFIED SNOMED Code(s): 836406528 Comment: lower than baseline; FOBT + in combination with CKD s/p 2U of PRBCs 02/17 history of upper GI bleed in the past related to motrin (not taking any nsaids currently), also some question of cirrhosis/portal htn so varices also a consideration EGD today with Dr. Smart (6) Thrombocytopenia Current Visit: No Status: Acute Code(s): D69.6 - THROMBOCYTOPENIA, UNSPECIFIED SNOMED Code(s): 397485654 Comment: chronic but worsened in setting of sepsis (7) Weakness Current Visit: No Status: Acute Code(s): R53.1 - WEAKNESS SNOMED Code(s): 79102543 Comment: likely multifactorial and related to deconditioning, anemia, sepsis will ultimately need a PT eval, but not yet (8) Chronic pain syndrome Current Visit: Yes Status: Acute Code(s): G89.4 - CHRONIC PAIN SYNDROME SNOMED Code(s): 723799075 Comment: continue oxycodone (9) Diabetes mellitus Current Visit: No Status: Chronic Code(s): E11.9 - TYPE 2 DIABETES MELLITUS WITHOUT COMPLICATIONS SNOMED Code(s): 74529042 Comment: continue lantus 15U BID Status and Disposition: EGD today need to follow up on repeat blood cultures to be sure they clear
[2019-02-18] MEDS ORDERED: Naloxone* 0.4 MG/ML 1 ML VIAL IV PRN (12:43)
[2019-02-18] MEDS ORDERED: DiMENhydriNATE IV* 50 MG/ML VIAL IV PUSH PRN (12:43)
[2019-02-18] MEDS ORDERED: fentaNYL* 50 MCG/ML 2 ML VIAL (100 MCG VIAL) IV PRN (12:43)
[2019-02-18] MEDS ORDERED: HYDROcodone/ACETAMIN 5-325 MG* 1 TAB PO PRN (12:43)
[2019-02-18] MEDS ORDERED: oxyCODONE TAB* 5 MG TAB PO PRN (12:43)
[2019-02-18] MEDS ORDERED: KETAMINE HCL* 50 MG/ML 10 ML VIAL ONE (12:56)
[2019-02-18] MEDS ORDERED: Midazolam* 1 MG/ML 2 ML VIAL (2 MG) ONE (13:12)
[2019-02-18] MEDS: cefTRIAXone(*) 2 GM in NS 0.9% 100 ML* 100 ML IVPB SCH (15:00)
--- NOTE | 2019-02-18 15:48 | PRO ---
CC: Dr. Janelle Devi PROCEDURE REPORT: DATE OF PROCEDURE: 02/18/19 PROCEDURE: EGD with biopsy. INPATIENT PROVIDER: Dr. Janelle Devi. INDICATIONS: The patient is hospitalized for bacteremia and sepsis. Noted to have acute on chronic anemia while in the hospital. The patient denies seeing any bloody stools or melena. In 2014, the patient had a large gastric ulcer, which was felt to be related to Advil use. In August 2014, there was a CT abdomen , which demonstrated splenorenal shunting with multiple collaterals at the gastric fundus and a large draining vessel in the left renal vein. There was also a larger left lobe of the liver. Findings are felt to raise concern for portal hypertension with possible gastric and esophageal varices. No followup abdominal imaging or endoscopy has been performed since this time. MEDICATIONS GIVEN: By Anesthesia. DESCRIPTION OF PROCEDURE: Full disclosure of risks was reviewed with the patient as detailed on the consent form. The patient was placed in the left lateral decubitus position and monitored with continuous pulse oximetry, capnography, interval blood pressure monitoring, and direct observation. A bite -block was placed between the patient's teeth. Adult gastroscope was then inserted into the patient's mouth and advanced down the esophagus, into the stomach, and into the distal duodenum. Findings and interventions are described below. FINDINGS: Esophagus was a tubular structure. No obvious varices were appreciated in the esophagus. GE junction occurred at 36 cm and was mildly irregular. There was no significant proximal extension of the Z-line above the GE junction. Scope was then advanced into the stomach. Stomach was examined in the forward and retroflexed views. In the antrum, there were several erythematous nodules with overlying white erosions. These erosions were not bleeding. There was a mildly irregular appearance of the gastric body, which may represent mild portal hypertensive gastropathy. There was no fresh or old blood in the stomach. Retroflexion in the stomach revealed medium to large nonbleeding gastric fundal varices. Scope was then advanced into the duodenum to at least the third portion. Duodenal mucosa was unremarkable in appearance. Scope was then withdrawn back into the stomach. Biopsy was obtained from the antrum for CLOtest. Biopsy also obtained from the gastric body for histologic evaluation. Scope was then withdrawn from the patient. The patient tolerated the procedure well and was recovered in the GI recovery area. IMPRESSION: 1. Complete upper endoscopy to distal duodenum. 2. Medium to large fundal gastric varices. Suspect that these related to underlying portal hypertension, but these are not the source of the patient's anemia. 3. Nodular erythema in the gastric antrum with overlying erosions. It is certainly possible that this is a source of blood loss. FOLLOWUP: 1. Await pathology. 2. Recommend updating imaging of the liver. Would start with liver ultrasound with Doppler. 3. Will speak with patient's inpatient team. She should be switched to a non- cardioselective beta-pratik if possible to help as prophylaxis for the gastric varices. 4. Would recommend follow up in GI clinic at which point we can discuss further workup and management of suspected underlying liver disease and portal hypertension. 5. Ensure that patient is on twice daily PPI. Avoid or minimize NSAIDs. Thank you very much for this referral. [id number]/CPS #: [id number] CYDNEY
[2019-02-18] MEDS: oxyCODONE TAB* 5 MG TAB PO PRN (17:53)
[2019-02-18] MEDS: Atorvastatin* 40 MG TAB PO SCH (19:19)
[2019-02-19 06:21] LABS: INR 1.3 (0.82-1.09)
[2019-02-19 06:27] LABS: ABS Basophils 0.1 10^3/ul (0-0.2); ABS Eosinophils 0.8 10^3/ul (0-0.6); ABS Lymphocytes 2.1 10^3/ul (1.0-4.8); ABS Monocytes 1.2 10^3/ul (0-0.8); ABS Neutrophils 6.1 10^3/ul (1.5-7.7); Eosinophil % 8.1 %; Hematocrit 23 % (35-47); Hemoglobin 7.7 g/dL (12.0-16.0); Lymphocyte % 20.5 %; Mean Corpuscular HGB Conc 34 g/dL (31-36); Mean Corpuscular Hemoglobin 32 pg (27-31); Mean Corpuscular Volume 95 fL (80-97); Mean Platelet Volume 8.5 fL (7.4-10.4); Nucleated Red Blood Cells % 0.1; Platelet Count 75 10^3/uL (150-450); Red Blood Count 2.41 10^6 /uL (3.70-4.87); Red Cell Distribution Width 20 % (10-15); White Blood Count 10.4 10^3/uL (3.5-10.8)
[2019-02-19 06:31] LABS: ALT 15 U/L (7-52); AST 46 U/L (13-39); Albumin 1.6 g/dL (3.2-5.2); Albumin/Globulin Ratio 0.6 (1-3); Alkaline Phosphatase 77 U/L (34-104); Anion Gap 4 mmol/L (2-11); BUN/Creatinine Ratio 12.6 (8-20); Blood Urea Nitrogen 36 mg/dL (6-24); CO2 Carbon Dioxide 22 mmol/L (22-32); Calcium 7.8 mg/dL (8.6-10.3); Chloride 108 mmol/L (101-111); EGFR African American 19.6 (>60); EGFR Non-African American 16.2 (>60); Globulin 2.9 g/dL (2-4); Glucose 185 mg/dL (70-100); Potassium 3.5 mmol/L (3.5-5.0); Sodium 134 mmol/L (135-145); Total Protein 4.5 g/dL (6.4-8.9)
[2019-02-19 06:32] LABS: % Iron Saturation 49 % (15-55); Iron 72 ug/dL (50-212); Total Iron Binding Capacity 147 mcg/dL (250-450); Transferrin 105 mg/dL (203-362)
[2019-02-19 06:51] LABS: Ferritin 153.9 ng/mL (11-307)
[2019-02-19] MEDS: Pantoprazole TAB * 40 MG TAB PO SCH ×2 (09:10→20:29)
[2019-02-19] MEDS: Insulin LISPRO* 1 UNITS UNIT SUBCUT SCH ×3 (09:10→16:45)
[2019-02-19] MEDS: Allopurinol TAB* 300 MG PO SCH (09:11)
[2019-02-19] MEDS: Ferrous Gluconate TAB* 324 MG TAB PO SCH ×2 (09:11→20:29)
[2019-02-19] MEDS: Nystatin TOP POWDER* 15 GM BTL TOPICAL SCH ×2 (09:13→20:30)
--- NOTE | 2019-02-19 10:56 | PN ---
Subjective Date of Service: 02/19/19 Interval History: No acute issues overnight Had EGD yesterday No fevers, no chills. Family History: Unchanged from Admission Social History: Unchanged from Admission Past Medical History: Unchanged from Admission Objective Active Medications: Acetaminophen (Tylenol Tab*) 650 mg PO Q4H PRN PRN Reason: MILD PAIN or TEMP > 100.4 Allopurinol (Zyloprim Tab*) 300 mg PO DAILY [facility] Last Admin: 02/19/19 09:11 Dose: 300 mg Atorvastatin Calcium (Lipitor*) 40 mg PO 1700 [facility] Last Admin: 02/18/19 19:19 Dose: 40 mg Dextrose (Dextrose 50% Vial 50 Ml*) 25 ml IV PUSH .FOR FS < 60 - SS PRN PRN Reason: FS < 60 Ferrous Gluconate (Fergon Tab*) 324 mg PO BID [facility] Last Admin: 02/19/19 09:11 Dose: 324 mg Ceftriaxone Sodium 2 gm/ (Sodium Chloride) 100 mls @ 200 mls/hr IVPB Q24H [facility] Last Admin: 02/18/19 15:00 Dose: 200 mls/hr Insulin Glargine (Lantus(*)) 15 units SUBCUT Q12H [facility] Last Admin: 02/18/19 22:56 Dose: 15 units Insulin Human Lispro (Humalog*) 0 units SUBCUT AC [facility]; Protocol Last Admin: 02/19/19 09:10 Dose: 6 units Lactulose (Lactulose*) 30 ml PO 0900,1500 [facility] Last Admin: 02/19/19 09:10 Dose: 30 ml Nystatin (Nystatin Top Powder*) 1 applic TOPICAL BID [facility] Last Admin: 02/19/19 09:13 Dose: 1 applic Oxycodone HCl (Roxycodone Tab*) 5 mg PO QID PRN PRN Reason: PAIN - MODERATE Last Admin: 02/18/19 17:53 Dose: 5 mg Pantoprazole Sodium (Protonix Tab*) 40 mg PO BID [facility] Last Admin: 02/19/19 09:10 Dose: 40 mg Vital Signs - 8 hr 02/19/19 02/19/19 03:08 08:00 Temperature 98.0 F Pulse Rate 58 Respiratory 14 20 Rate Blood Pressure 136/42 (mmHg) O2 Sat by Pulse 95 96 Oximetry Oxygen Devices in Use Now: None Appearance: She is well developed, well nourished female lying in bed, not in distress Eyes: PERRLA Ears/Nose/Mouth/Throat: Mucous Membranes Moist Respiratory: Symmetrical Chest Expansion and Respiratory Effort, Clear to Auscultation Cardiovascular: RRR, No Edema, - - 3/6 systolic murmur at the RUSB Abdominal: NL Sounds; No Tenderness; No Distention, No Hepatosplenomegaly Extremities: No Edema Skin: No Rash or Ulcers Neurological: Alert and Oriented x 3 Result Diagrams: 02/19/19 05:30 02/19/19 05:31 Microbiology and Other Data: Microbiology 02/16/19 20:03 Aerobic Blood Culture - Preliminary Blood Venous Anaerobic Blood Culture - Preliminary 02/16/19 20:03 Aerobic Blood Culture - Preliminary Blood Venous 02/17/19 00:37 Stool Occult Blood (MALIHA) - Final Stool Assess/Plan/Problems-Billing Assessment: This is a 73 year old woman with history of ?cirrhosis/evidence of portal hypertension, CKD, TIA, and lymphedema admitted on 02/16 with weakness, found to have anemia and bacteremia. - Patient Problems (1) Bacteremia Current Visit: Yes Status: Acute Code(s): R78.81 - BACTEREMIA SNOMED Code( s): 8598388 Comment: 02/16 blood cultures growing Strep canis. (of note, she has 3 greyhounds and another dog from [place] and [place], which may be pertinent, maybe not) Seen by ID: Dr. Bowen; may reflect an immunocompromised status SANTOS done - no vegetation Repeat cultures negative thus far continue rocephin (2) Acute kidney injury Current Visit: No Status: Acute Priority: High Onset Date: 03/19/14 Code (s): N17.9 - ACUTE KIDNEY FAILURE, UNSPECIFIED SNOMED Code(s): 17265087 Comment: likely related to sepsis on CKD improving. (3) Anemia Current Visit: No Status: Acute Code(s): D64.9 - ANEMIA, UNSPECIFIED SNOMED Code(s): 385835146 Comment: lower than baseline; FOBT + in combination with CKD s/p 2Units of PRBCs 02/17 history of upper GI bleed in the past related to motrin (not taking any nsaids currently), EGD done 02/18- gastric varices, biopsy was done as well. (4) Gastric varices Current Visit: Yes Status: Acute Code(s): I86.4 - GASTRIC VARICES SNOMED Code(s): 51830107 Comment: with no prior hx of liver disease working up with liver u/s and blood work. due to bradycardia: propanolol was not started (5) Thrombocytopenia Current Visit: No Status: Acute Code(s): D69.6 - THROMBOCYTOPENIA, UNSPECIFIED SNOMED Code(s): 991036141 Comment: chronic but worsened in setting of sepsis (6) Chronic pain syndrome Current Visit: Yes Status: Acute Code(s): G89.4 - CHRONIC PAIN SYNDROME SNOMED Code(s): 154666013 Comment: continue oxycodone (7) Diabetes mellitus Current Visit: No Status: Chronic Code(s): E11.9 - TYPE 2 DIABETES MELLITUS WITHOUT COMPLICATIONS SNOMED Code(s): 20051463 Comment: continue lantus 15Units BID Status and Disposition: EGD today need to follow up on repeat blood cultures to be sure they clear
[2019-02-19] MEDS: Insulin GLARGINE(*) 1 UNITS UNIT SUBCUT SCH (11:46)
[2019-02-19] MEDS: cefTRIAXone(*) 2 GM in NS 0.9% 100 ML* 100 ML IVPB SCH (13:22)
[2019-02-19] MEDS: Atorvastatin* 40 MG TAB PO SCH (16:45)
[2019-02-20] MEDS: oxyCODONE TAB* 5 MG TAB PO PRN ×2 (00:43→22:04)
[2019-02-20] MEDS: Insulin GLARGINE(*) 1 UNITS UNIT SUBCUT SCH ×3 (00:43→22:04)
[2019-02-20] MEDS ORDERED: Morphine INJ* 2 MG/ML 1 ML SYRINGE (TWO MG - NEW SYRINGE VERSION) IV ONE (02:13)
[2019-02-20] MEDS: Insulin LISPRO* 1 UNITS UNIT SUBCUT SCH ×3 (08:34→17:07)
[2019-02-20] MEDS: Pantoprazole TAB * 40 MG TAB PO SCH ×2 (08:38→22:04)
[2019-02-20] MEDS: Nystatin TOP POWDER* 15 GM BTL TOPICAL SCH ×2 (08:38→22:05)
[2019-02-20] MEDS: Ferrous Gluconate TAB* 324 MG TAB PO SCH ×2 (08:38→22:04)
[2019-02-20] MEDS: Allopurinol TAB* 300 MG PO SCH (08:38)
--- NOTE | 2019-02-20 10:04 | PN ---
Progress Note - Progress Note Date of Service: 02/20/19 SOAP: Subjective: CC: bacteremia HPI: 73 year old woman with morbid obesity, abrasions on pannus. Has baseline chronic low back and knee pain which is not worse. She has no other pain, fever , rash, or diarrhea. Objective: Vital Signs Temp 36.9 C 02/20/19 03:36 Pulse 68 02/20/19 03:36 Resp 16 02/20/19 06:50 BP 120/34 02/20/19 03:36 Pulse Ox 97 02/20/19 03:36 Intake & Output 02/19/19 02/20/19 02/20/19 18:59 06:59 18:59 Intake Total 1080 480 Balance 1080 480 Intake: IV Fluids 10 ABX - CEFTRIAXONE 10 IVPB 110 ABX - CEFTRIAXONE 110 Oral 960 480 Other: # Bowel Movements 1 1 Estimated Stool Amount Medium Medium Gen:awake, no distress HEENT: no thrush Heart:RRR no murmur Lungs:CTA BL Abd:+BS NTND soft; dependent lymphedema with lateral superficial ulcers no surrounding erythema Skin: no rash MSK: no spine or joint tenderness Laboratory Results - last 24 hr 02/17/19 02/19/19 02/19/19 06:37 11:33 16:37 POC Glucose (mg/dL) 90 144 H Crossmatch See Detail 02/19/19 02/20/19 20:32 07:41 POC Glucose (mg/dL) 241 H 130 H Crossmatch Assessment: 1. Strep canis bacteremia in the setting of cirrhosis, significant dog contact; SANTOS negative and no other focus of infection 2. Morbid obesity with pannus lymphedema 3. 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 CKD Plan: 1. continue ceftriaxone until 02/21, can change to cephalexin 500 mg by mouth three times daily daily for 10 more [address] Discuss[address] Olivera
--- NOTE | 2019-02-20 12:21 | PN ---
Subjective Date of Service: 02/20/19 Interval History: No acute issues overnight No fever, no chills. Family History: Unchanged from Admission Social History: Unchanged from Admission Past Medical History: Unchanged from Admission Objective Active Medications: Acetaminophen (Tylenol Tab*) 650 mg PO Q4H PRN PRN Reason: MILD PAIN or TEMP > 100.4 Allopurinol (Zyloprim Tab*) 300 mg PO DAILY [facility] Last Admin: 02/20/19 08:38 Dose: 300 mg Atorvastatin Calcium (Lipitor*) 40 mg PO 1700 [facility] Last Admin: 02/19/19 16:45 Dose: 40 mg Dextrose (Dextrose 50% Vial 50 Ml*) 25 ml IV PUSH .FOR FS < 60 - SS PRN PRN Reason: FS < 60 Ferrous Gluconate (Fergon Tab*) 324 mg PO BID [facility] Last Admin: 02/20/19 08:38 Dose: 324 mg Ceftriaxone Sodium 2 gm/ (Sodium Chloride) 100 mls @ 200 mls/hr IVPB Q24H [facility] Last Admin: 02/19/19 13:22 Dose: 200 mls/hr Insulin Glargine (Lantus(*)) 15 units SUBCUT Q12H [facility] Last Admin: 02/20/19 11:38 Dose: 15 units Insulin Human Lispro (Humalog*) 0 units SUBCUT AC [facility]; Protocol Last Admin: 02/20/19 11:39 Dose: 3 units Lactulose (Lactulose*) 30 ml PO 0900,1500 [facility] Last Admin: 02/20/19 08:38 Dose: 30 ml Nystatin (Nystatin Top Powder*) 1 applic TOPICAL BID [facility] Last Admin: 02/20/19 08:38 Dose: 1 applic Oxycodone HCl (Roxycodone Tab*) 5 mg PO QID PRN PRN Reason: PAIN - MODERATE Last Admin: 02/20/19 00:43 Dose: 5 mg Pantoprazole Sodium (Protonix Tab*) 40 mg PO BID [facility] Last Admin: 02/20/19 08:38 Dose: 40 mg Vital Signs - 8 hr 02/20/19 02/20/19 02/20/19 06:50 08:00 08:10 Temperature 98.9 F Pulse Rate 75 Respiratory 16 16 16 Rate Blood Pressure 149/44 (mmHg) O2 Sat by Pulse 99 99 Oximetry 02/20/19 11:37 Temperature 98.3 F Pulse Rate 68 Respiratory 16 Rate Blood Pressure 136/40 (mmHg) O2 Sat by Pulse 99 Oximetry Oxygen Devices in Use Now: None Appearance: Elderly female, lying in bed, not in distress Eyes: PERRLA Respiratory: Symmetrical Chest Expansion and Respiratory Effort, Clear to Auscultation Cardiovascular: RRR, No Edema, - - 3/6 systolic murmur at the RUSB Abdominal: NL Sounds; No Tenderness; No Distention, No Hepatosplenomegaly Neurological: Alert and Oriented x 3 Result Diagrams: 02/19/19 05:30 02/19/19 05:31 Microbiology and Other Data: Microbiology 02/16/19 20:03 Aerobic Blood Culture - Preliminary Blood Venous Anaerobic Blood Culture - Preliminary 02/16/19 20:03 Aerobic Blood Culture - Preliminary Blood Venous 02/17/19 00:37 Stool Occult Blood ([facility]) - Final Stool Assess/Plan/Problems-Billing Assessment: This is a 73 year old woman with history of ?cirrhosis/evidence of portal hypertension, CKD, TIA, and lymphedema admitted on 02/16 with weakness, found to have anemia and bacteremia. - Patient Problems (1) Bacteremia Current Visit: Yes Status: Acute Code(s): R78.81 - BACTEREMIA SNOMED Code( s): 9798105 Comment: 02/16 blood cultures growing Strep canis. (of note, she has 3 greyhounds and another dog from [place] and [place], which may be pertinent, maybe not) Seen by ID: Dr. Bowen; may reflect an immunocompromised status SANTOS done - no vegetation Repeat cultures negative thus far continue rocephin- (2) Acute kidney injury Current Visit: No Status: Acute Priority: High Onset Date: 03/19/14 Code (s): N17.9 - ACUTE KIDNEY FAILURE, UNSPECIFIED SNOMED Code(s): 40016617 Comment: likely related to sepsis on CKD has improved (3) Anemia Current Visit: No Status: Acute Code(s): D64.9 - ANEMIA, UNSPECIFIED SNOMED Code(s): 152176965 Comment: lower than baseline; FOBT + in combination with CKD s/p 2Units of PRBCs 02/17 history of upper GI bleed in the past related to motrin (not taking any nsaids currently), EGD done 02/18- gastric varices, biopsy was done as well. (4) Gastric varices Current Visit: Yes Status: Acute Code(s): I86.4 - GASTRIC VARICES SNOMED Code(s): 67768408 Comment: with no prior hx of liver disease working up with liver u/s and blood work. due to bradycardia: propanolol was not started (5) Thrombocytopenia Current Visit: No Status: Acute Code(s): D69.6 - THROMBOCYTOPENIA, UNSPECIFIED SNOMED Code(s): 457688316 Comment: chronic but worsened in setting of sepsis (6) Chronic pain syndrome Current Visit: Yes Status: Acute Code(s): G89.4 - CHRONIC PAIN SYNDROME SNOMED Code(s): 386907461 Comment: continue oxycodone (7) Diabetes mellitus Current Visit: No Status: Chronic Code(s): E11.9 - TYPE 2 DIABETES MELLITUS WITHOUT COMPLICATIONS SNOMED Code(s): 60364404 Comment: continue lantus 15Units BID Status and Disposition: repeat cultures negative thus far, one more day of IV antibiotics anticipate discharge tomorrow with PO antibiotics. PT ordered
[2019-02-20] MEDS: cefTRIAXone(*) 2 GM in NS 0.9% 100 ML* 100 ML IVPB SCH (12:32)
[2019-02-20] MEDS: Atorvastatin* 40 MG TAB PO SCH (17:07)
[2019-02-21] MEDS: Allopurinol TAB* 300 MG PO SCH (08:09)
[2019-02-21] MEDS: Ferrous Gluconate TAB* 324 MG TAB PO SCH (08:09)
[2019-02-21] MEDS: Pantoprazole TAB * 40 MG TAB PO SCH (08:09)
[2019-02-21] MEDS: Insulin LISPRO* 1 UNITS UNIT SUBCUT SCH ×2 (08:10→11:43)
[2019-02-21] MEDS: Nystatin TOP POWDER* 15 GM BTL TOPICAL SCH (08:10)
[2019-02-21 10:39] LABS: Ceruloplasmin 25.6 mg/dL
[2019-02-21 10:52] LABS: Alpha 1 Antitrypsin A1A 128 mg/dL (100 - 190)
[2019-02-21 11:25] LABS: Calcium 7.7 mg/dL (8.6-10.3); Potassium 3.8 mmol/L (3.5-5.0)
[2019-02-21 11:30] LABS: BUN/Creatinine Ratio 13.3 (8-20); EGFR African American 22.2 (>60); EGFR Non-African American 18.4 (>60)
[2019-02-21] MEDS: Insulin GLARGINE(*) 1 UNITS UNIT SUBCUT SCH (11:42)
[2019-02-21 13:04] VITALS: BP 140/48
--- NOTE | 2019-02-21 13:17 | PN ---
Progress Note - Progress Note Date of Service: 02/21/19 SOAP: Subjective: CC: bacteremia HPI: 73 year old woman with morbid obesity, abrasions on pannus, Strep bacteremia. No fever, rash, or diarrhea. Going home today. Objective: Vital Signs Temp 36.8 C 02/21/19 11:15 Pulse 85 02/21/19 11:15 Resp 16 02/21/19 11:15 BP 140/48 02/21/19 11:15 Pulse Ox 99 02/21/19 11:15 Intake & Output 02/20/19 02/21/19 02/21/19 18:59 06:59 18:59 Intake Total 1520 480 60 Balance 1520 480 60 Intake: IV Fluids 10 ABX - CEFTRIAXONE 10 IVPB 110 ABX - CEFTRIAXONE 110 Oral 1400 480 60 Other: Estimated Void Medium # Bowel Movements 1 Estimated Stool Amount Large Medium Gen:awake, no distress HEENT: no thrush Heart:RRR no murmur Lungs:CTA BL lymph Abd:+BS NTND soft Skin: no rash Laboratory Results - last 24 hr 02/19/19 02/20/19 02/20/19 05:30 16:35 16:39 Sodium Potassium Chloride Carbon Dioxide Anion Gap BUN Creatinine Est GFR ( Amer) Est GFR (Non-Af Amer) BUN/Creatinine Ratio Glucose POC Glucose (mg/dL) 72 220 H Calcium Hjefn-0-Sjpwrdqbtwt 128 Ceruloplasmin 25.6 02/20/19 02/21/19 02/21/19 19:46 07:54 09:59 Sodium Potassium Chloride Carbon Dioxide Anion Gap BUN Creatinine Est GFR ( Amer) Est GFR (Non-Af Amer) BUN/Creatinine Ratio Glucose POC Glucose (mg/dL) 221 H 73 184 H Calcium Ublgm-4-Qvbhxwcrzpl Ceruloplasmin 02/21/19 10:59 Sodium 133 L Potassium 3.8 Chloride 108 Carbon Dioxide 18 L Anion Gap 7 BUN 34 H Creatinine 2.56 H Est GFR ( Amer) 22.2 Est GFR (Non-Af Amer) 18.4 BUN/Creatinine Ratio 13.3 Glucose 176 H POC Glucose (mg/dL) Calcium 7.7 L Bgntf-6-Udrpbcbrqaf Ceruloplasmin Assessment: 1. Strep canis bacteremia in the setting of cirrhosis, significant dog contact; SANTOS negative and no other focus of infection 2. Morbid obesity with pannus lymphedema 3. 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 CKD Plan: 1. cephalexin 500 mg by mouth three times daily daily for 10 more days, dosed for GFR/weight Discussed with Jessica Ro [employer]
[2019-02-21 13:35] LABS: ABS Eosinophils 0.8 10^3/ul (0-0.6); ABS Lymphocytes 2.3 10^3/ul (1.0-4.8); ABS Monocytes 1.4 10^3/ul (0-0.8); ABS Neutrophils 7.3 10^3/ul (1.5-7.7); Eosinophil % 6.6 %; Hematocrit 31 % (35-47); Hematocrit for Retic CNT 31 % (35-47); Hemoglobin 9.8 g/dL (12.0-16.0); Immature Retic Fraction 0.52; Lymphocyte % 19.4 %; Mean Corpuscular HGB Conc 31 g/dL (31-36); Mean Corpuscular Hemoglobin 32 pg (27-31); Mean Corpuscular Volume 102 fL (80-97); Mean Platelet Volume 9.2 fL (7.4-10.4); Nucleated Red Blood Cells % 0.3; Platelet Count 145 10^3/uL (150-450); RBC Retic Count 3.09 10^6/uL (3.70-4.87); Red Blood Count 3.09 10^6 /uL (3.70-4.87); Red Cell Distribution Width 20 % (10-15); White Blood Count 11.9 10^3/uL (3.5-10.8)
[2019-02-21] MEDS ORDERED: Cephalexin CAP* 500 MG PO SCH (14:00)
--- NOTE | 2019-02-21 15:42 | PN ---
Progress Note - Progress Note Date of Service: 02/21/19 Note: BRIEF GI NOTE Reviewed chart. Patient's H/H stable to improving. Biopsies from stomach demonstrated non-specific moderate chronic inflammation. H pylori negative. Liver US w/ nodular liver and mild ascites. Portal vein patent. Iron studies, ceruloplasmin, A1AT were unremarkable. Additional serologies pending for evaluation of chronic liver disease. Impression: Cirrhosis - unclear etiology at this point. Decompensated features include: non- bleeding gastric varices, encephalopathy, mild ascites, hypoalbuminemia. Gastric erosions seen on EGD likely contributed to acute on chronic anemia. - Continue PPI BID given gastric erosions seen on EGD. - Please ensure chronic hepatitis panel has been checked. Will await remainder of chronic liver disease work-up. - Continue Lactulose for goal of 2-3 bowel movements/day. - Recommend nadolol (starting dose 20 mg/day) or propranolol (starting dose 20 mg) for variceal prophylaxis. Will titrate in outpatient setting as tolerated. - Will schedule follow-up in GI clinic. Please contact GI if any further questions or concerns. Erika Barrienots MD Gastroenterology
[2019-02-21 16:03] LABS: Smooth Muscle Antibody Negative (Negative)
[2019-02-21 16:21] LABS: Mitochondria M2 Antibody 0.1 U
--- NOTE | 2019-02-22 04:36 | DS ---
Amended report to enter cosigning physician. CC: Dr. Senior* DISCHARGE SUMMARY: DATE OF ADMISSION: 02/16/19 DATE OF DISCHARGE: 02/21/19 ATTENDING PHYSICIAN: Dr. Husain* (dictated by Jessica Ro NP). PRIMARY CARE PROVIDER: Dr. Senior. CONSULTING PHYSICIANS: Dr. Schmid, Dr. Smart, and Dr. Barrientos. PRIMARY DIAGNOSES: 1. Bacteremia secondary to Streptococcus canis. 2. Decompensated cirrhosis with hepatic encephalopathy and ascites. 3. Chronic kidney disease. 4. Anemia of chronic disease. SECONDARY DIAGNOSES: 1. Hypertension. 2. Diabetes type 2. 3. Thrombocytopenia. 4. Gastroesophageal reflux disease. 5. Gout. 6. Pannus lymphedema. PROCEDURES: EGD performed on 02/18/19, which showed nonbleeding erythematous nodules with overlying white erosion in the gastric antrum, mildly irregular appearance of gastric body, which could represent mild portal hypertensive gastropathy, medium to large nonbleeding gastric fundal varices and CLOtest negative. STUDIES: 1. Portal vein ultrasound showed heterogenous and echogenicity with a nodular contour suggestive of cirrhosis, portal vein patent with normal direction of flow, ascites, possible cholelithiasis. 2. Transesophageal echocardiogram: Ejection fraction of 60% to 65%. Left atrium mildly dilated. Right atrium moderately dilated. Small patent foramen ovale with predominant left to right shunt. Mitral valve has mild regurgitation with multiple jets. Aortic valve with mild stenosis. Tricuspid valve with manc-dv-dphijyrh regurgitation. Aorta has minimal atherosclerotic plaque and no obvious vegetation. 3. EKG: Sinus rhythm with PACs. PERTINENT LAB DATA: Sodium 133, carbon dioxide 18, BUN 34, creatinine 2.56, glucose 176, calcium 7.7. INR 1.3. White blood cell count 11.9, RBC 3.09, hemoglobin 9.8, hematocrit 31, MCV 102, MCH 32, MCHC 31, RDW 20, platelet count 145. Retic count 2.9, corrected retic count 2.0. Retic shift factor 1.5. Retic production index 1.30. Immature retic fraction 0.52. Mean retic volume 153.8. Influenza A and B negative and antinuclear antibody 0.8. Mitochondria M2 antibody 0.1 and anti-smooth muscle AB was negative. HISTORY OF PRESENT ILLNESS/HOSPITAL COURSE: This is a 73-year-old female with past medical history significant for hypertension, diabetes type 2, and TIA in December, who originally came to the emergency room on 02/16/19 presenting with weakness and slurred speech. She was found to have sepsis and lactic acidosis related to bacteremia secondary to Strep canis. Dr. Schmid was consulted and was treated with ceftriaxone IV for 5 days and was switched to oral cephalexin 500 mg p.o. t.i.d. for 10 days per recommendation of Infectious Disease. First dose was started today on 02/21/19. Her weakness was attributed to vascular dehydration, which was treated with 2 L of normal saline in the ED. The weakness could also be attributed to her lower than baseline anemia. Admitting H and H was 7.5 and 23, which decreased to 6.7 and 21 in the next day. She received 2 units of blood on 02/17/19. EGD performed on 02/18/19 to assess for GI bleed. There was no active bleeding or esophageal varices found. In retrospect, it is likely drop in H and H was dilutional. However, to prevent further irritation of current ulcers, Dr. Barrientos recommended Protonix b.i.d. and non- cardioselective beta pratik. The beta pratik was not initiated due to bradycardia. We will defer that decision to GI at followup as an outpatient. Workup of anemia revealed normal folate and B12 levels minimally as well as minimally decreased iron levels. It is likely that the anemia is due to chronic kidney disease. I would like her to follow up with Dr. Almeida and with the possibility that she may require an Epogen treatment. Today, her H and H was 9.8 and 31. Weakness has resolved. Her symptoms of slurred speech is likely related to hepatic encephalopathy secondary to decompensated cirrhosis with ascites. Normally, she takes lactulose twice a day and admitting ammonia level was a high normal valve of 52. She was ordered lactulose t.i.d., which was continued at discharge. Her slurred speech resolved prior to coming to the emergency room and has not returned during her stay. She should follow up with GI as an outpatient concerning her cirrhosis. Today, the patient seems sitting up in chair, saying she felt much better and felt safe to go home. REVIEW OF SYSTEMS: An 11-point system review was completed; positive for fatigue ; negative for chest pain, shortness of breath, abdominal pain, nausea, vomiting , melena, or issues moving her bowels or bladder. PHYSICAL EXAMINATION: Vital Signs: 98.2 Fahrenheit, 85 pulse, 16 respirations , 99% oxygen on room air, 140/48 blood pressure. General: This is a morbidly obese woman seen sitting up in the chair, in no acute distress. Neck is supple. Heart rate is regular. S1 and S2 present. No murmurs, gallops, or rubs appreciated. Lung sounds clear throughout bilaterally on room air. Abdomen is large, soft, nontender, distended with hyperactive bowel sounds x4. Musculoskeletal: No clubbing or cyanosis of the digits. Able to move all extremities. Cap refill less than 3 seconds. Neuro: Sensation intact to light touch. No focal deficits appreciated. No facial asymmetry. Tongue is midline. Skin: Pannus is pink, blanching and without additional warmth. Psych : She is alert and oriented x4 with no overt anxiety or depression. DISCHARGE PLAN: Diet is to be consistent carb, heart healthy, low salt diet. Activity is as tolerated. Return precaution: The patient is to return to the hospital or to the emergency room department should she have any sudden chest pain or shortness of breath, slurred speech, facial droop, or sudden onset of abdominal pain or fever. PLAN FOR EACH CONDITION: 1. For her bacteremia secondary to Strep canis, to continue with oral cephalexin as mentioned above. First dose started on 02/21/19. 2. Anemia of chronic disease, had decreased iron to once a day to allow for better absorption; has no evidence of active bleed; started on Protonix b.i.d. to prevent bleeding of gastric ulcers, with Dr. Almeida chronic kidney disease and anemia and should follow up with Dr. Barrientos with regard to her gastric ulcers and cirrhosis. 3. Decompensated cirrhosis with hepatic encephalopathy and ascites. Cirrhosis is likely attributed to nonalcoholic fatty liver. Had to increase dose of lactulose from b.i.d. to t.i.d. Should follow up with Dr. Barrientos on an outpatient basis. With the thought that further outpatient testing could be done for HCC and for subsequent management. 4. Chronic kidney disease. Again, the patient is to follow up with Dr. Almeida , should stay away from nephrotoxic medication. It is thought that this could be attributed to her hypertension and possibly diabetes. 5. Thrombocytopenia, can be attributed to her cirrhosis. However, there are no signs of disseminated bleeding. 6. Chronic pain syndrome, should continue with oxycodone. 7. Diabetes, type 2. She should continue on with her Lantus as she takes at home and fingersticks. Her last H and H was within target goal. 8. Hypertension, remained relatively controlled while in the hospital. Should continue her atenolol, furosemide, lisinopril, and aspirin. 9. Hyperlipidemia. Continue atorvastatin. MEDICATIONS: Continued home medications: 1. Lactulose 30 mL p.o. t.i.d. 2. Insulin glargine 15 units subcu b.i.d. 3. Furosemide 20 mg p.o. daily. 4. CBD oil 100 mg p.o. daily. 5. Atenolol 50 mg p.o. daily. 6. Allopurinol 300 mg p.o. daily. 7. Lakeside-3 fatty acid 1000 mg p.o. daily. 8. Lisinopril 20 mg p.o. daily. 9. Atorvastatin 40 mg p.o. daily. 10. Aspirin 81 mg p.o. daily. 11. Protonix 40 mg p.o. b.i.d. 12. Ferrous gluconate 324 mg p.o. daily. 13. Cephalexin 500 mg p.o. t.i.d. x10 days, 1 dose given in the hospital. CONDITION UPON DISCHARGE: Fair. DISPOSITION: To home. TIME SPENT: Time spent on the patient is about 70 minutes with half of that spent [id number]. Jessica Ro, RETIREMENT ASSISTANT [id number]/[facility] #: [id number] CYDNEY
[2019-02-22] MEDS ORDERED: Ferrous Gluconate TAB* 324 MG TAB PO SCH (09:00)
== END 2019-02-21 14:01 | disposition home or self-care (01) | DRG 872 ==
LOC: ED 18:17 → MEDTELE 21:04 → OBSVTOIN 02-17 11:00
PROVIDERS: ADMIT Hospitalist; ATTEND Internal Medicine
PROC: 0DB68ZX Excision of Stomach, Via Natural or Artificial Opening Endoscopic, Diagnostic (ICD-10-PCS; 2019-02-18)
PROC: 0DB78ZX Excision of Stomach, Pylorus, Via Natural or Artificial Opening Endoscopic, Diagnostic (ICD-10-PCS; 2019-02-18)
PROC: 30233N1 Transfusion of Nonautologous Red Blood Cells into Peripheral Vein, Percutaneous Approach (ICD-10-PCS; 2019-02-18)
PROC: B24BZZ4 Ultrasonography of Heart with Aorta, Transesophageal (ICD-10-PCS; principal; 2019-02-18 07:30)
DX: A40.8 Other streptococcal sepsis (principal); R18.8 Other ascites; E87.2 Acidosis; Z68.44 Body mass index [BMI] 60.0-69.9, adult; N17.9 Acute kidney failure, unspecified; R65.20 Severe sepsis without septic shock; K74.60 Unspecified cirrhosis of liver; D63.1 Anemia in chronic kidney disease; E11.22 Type 2 diabetes mellitus with diabetic chronic kidney disease; 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 chronic kidney disease with stage 1 through stage 4 chronic kidney disease, or unspecified chronic kidney disease; K21.9 Gastro-esophageal reflux disease without esophagitis; M10.9 Gout, unspecified; I89.0 Lymphedema, not elsewhere classified; D69.6 Thrombocytopenia, unspecified; E86.0 Dehydration; K25.9 Gastric ulcer, unspecified as acute or chronic, without hemorrhage or perforation; K72.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, unspecified without coma; I86.4 Gastric varices; G89.4 Chronic pain syndrome; E78.5 Hyperlipidemia, unspecified; N18.3 Chronic kidney disease, stage 3 (moderate); M17.0 Bilateral primary osteoarthritis of knee; E66.01 Morbid (severe) obesity due to excess calories; R00.1 Bradycardia, unspecified; Z79.82 Long term (current) use of aspirin; Z79.4 Long term (current) use of insulin; Z86.73 Personal history of transient ischemic attack (TIA), and cerebral infarction without residual deficits; Z98.42 Cataract extraction status, left eye; Z98.41 Cataract extraction status, right eye
CPT/HCPCS: 36415; 70450; 71045; 80048; 80053; 81003; 81015; 82103; 82140; 82272; 82390; 82728; 83516; 83540; 83550; 83605; 83735; 83880; 84443; 85025; 85027; 85045; 85060; 85610; 86038; 86255; 86850; 86900; 86901; 86922; 87040; 87077; 87086; 87186; 87205; 88305; 88342; 90686; 93005; 93312; 93325; 93975; 96365; 99156; 99157; 99284; A9270-GY; G8978-GP-CI; G8979-GP-CI; G8980-GP-CI; J0696; J2250; J2270; J2310; J2543; J3010; J3370; P9040

== ENCOUNTER 2019-04-02 11:15 | Inpatient (IN) | payer MEDICARE ==
--- OUTSIDE RECORDS SUMMARY | 2019-04-02 11:36 | XMS REPORT | Continuity of Care Document ---
:1945 External Reference #:[id number] Author Name Marlon Beard MD (transmitted by agent of provider Emily Jacobson) Address [address] [place] [address] Care Team Providers Name Role Phone Rafat Senior MD - Family Medicine Care Team Information Imaging Services Director [phone] Problems Description No Information Available Social History Type Date Description Comments Sex Unknown Tobacco Use Start: Unknown Never Smoked Cigarettes Smoking Status Reviewed: 03/27/19 Never Smoked Cigarettes ETOH Use Denies alcohol use Tobacco Use Start: Unknown Patient has never smoked Recreational Drug Use Denies Drug Use Exercise Type/Frequency Does not exercise Allergies, Adverse Reactions, Alerts Description No Known Drug Allergies Medications Active Medications SIG Qnty Indications Ordering Date Provider Atorvastatin Calcium 1 by mouth every 90tabs Marlon Gutierrez 03/06/2019 day MD Kisha 40mg Tablets Nystatin apply twice a day Unknown until resolved. [id number]/GM Cream Allopurinol 1 by mouth every Unknown 300mg day Tablets Constulose 15 milliliters by Unknown 10GM/15ML mouth once daily; Solution may increase to 60 milliliters once daily Ferrous Gluconate 1 by mouth once a Unknown day 324(37.5Fe) mg Tablets Oxycodone HCL 1 tabs by mouth Unknown 5mg every 4-6 hours as Tablets needed Furosemide 1 by mouth every Unknown 20mg day Tablets Atenolol 1 by mouth every Unknown 50mg Tablets day Omeprazole 1 by mouth twice Unknown 20mg daily Capsules DR Shelton Solostar inject 20 units Unknown once daily 100Unit/ML Solution Pen-Inject Lisinopril 1 by mouth every Unknown 20mg day Tablets Aspirin 81 1 by mouth every Unknown 81mg day Tablets DR DELON Unknown Ponce-3 Fish Oil take 1 tab by mouth Unknown daily. 1000mg Capsules Immunizations Description No Information Available Vital Signs Date Vital Result Comment 03/27/2019 2:08pm Height 64 inches 5'4" Weight 335.00 lb pt report unable to weigh on office scale Heart Rate 66 /min on lower L arm BP Systolic Sitting 119 mmHg BP Diastolic Sitting 48 mmHg O2 % BldC Oximetry 100 % BMI (Body Mass Index) 57.5 kg/m2 Results Test Acquired Facility Test Result H/L Range Note Date Laboratory 02/16/2019 [facility] Lactic Acid 5.3 Critical 0.5- 2.0 1 test finding [address] mmol/[place] [address] [phone] Influenza A & 02/16/2019 [facility] Flu AB (SEE 2, 3 B Request [address] Disclaimer NOTE) [place] [address] [phone] Influenza A Molecular NEGATIVE Negative Influenza B Molecular NEGATIVE Negative 4 1 Critical Result LACT:5.3 Called to [id number] at: 22:01:07 by:[id number] Read back by:[id number] [facility] Severe Sepsis and Septic Shock Management Bundle Measure requires all lactic acids initially measuring >2.0 mmol/L be repeated. Critical Result LACT:5.3 Called to [id number] at: 22:01:07 by:[id number] Read back by:[id number] [facility] Severe Sepsis and Septic Shock Management Bundle Measure requires all lactic acids initially measuring >2.0 mmol/L be repeated. 2 NASAL 3 Suboptimal collection technique may reduce sensitivity of test. Refer to the [facility] Test Catalog for collection information: [email or web address] As with all diagnostic procedures, the laboratory results obtained should be used in conjunction with other clinical information available to the physician, including confirmation by another method, as applicable. 4 Solar Manager: [id number] Procedures Date Code Description Status 02/18/2019 83055 Moderate Sedation Services; Same Phys Intl 15 Mins; PT >= Completed 5 Years 02/18/2019 61500 Color Flow Doppler/Interp & Reprt Completed 02/18/2019 15631 Pulse Wave/Continuous-Interp.RPT Completed 02/18/2019 19658 Echocardiography, Transesophageal, Real Time W/Image 2D Completed W/W/O M-M 01/02/2019 59000 ECHO Transthorasic Realtime 2D W Doppler & Color Flow Hosp Completed Medical Devices Description No Information Available Encounters Type Date Location Provider Dx Diagnosis Office Visit 02/21/2019 [facility] Jessica Luther R78.81 Bacteremia 10:17a Infectious Diseases Mery Bowen I89.0 Lymphedema, not elsewhere classified Office Visit 02/21/2019 [facility] Jessica Valdez, A40.8 Other 1:14p Assoc,pc SLEEVE PRESSER OPERATOR streptococcal Hospitalists sepsis K72.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, unspecified without coma R18.8 Other ascites D63.1 Anemia in chronic kidney disease N18.9 Chronic kidney disease, unspecified 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 E78.5 Hyperlipidemia, unspecified Office Visit 02/20/2019 10:16a [facility] Anmol Luther R78.81 Bacteremia Infectious Diseases Mery Bowen I89.0 Lymphedema, not elsewhere classified Office Visit 02/20/2019 [facility] A49.1 Streptococcal 1:13p Assoc,theron Olivera MD infection, Hospitalists unspecified site D64.9 Anemia, unspecified I86.4 Gastric varices D69.6 Thrombocytopenia, unspecified E11.9 Type 2 diabetes mellitus without complications G89.4 Chronic pain syndrome Office Visit 02/19/2019 [facility] A49.1 Streptococcal 1:13p Assoc,theron Olivera MD infection, Hospitalists unspecified site N17.9 Acute kidney failure, unspecified D64.9 Anemia, unspecified I86.4 Gastric varices D69.6 Thrombocytopenia, unspecified E11.9 Type 2 diabetes mellitus without complications G89.4 Chronic pain syndrome Office Visit 02/18/2019 [facility] Janelle A49.1 Streptococcal 1:12p Assoc,pc DO Marito infection, Hospitalists unspecified site R65.20 Severe sepsis without septic shock D64.9 Anemia, unspecified N17.9 Acute kidney failure, unspecified D69.6 Thrombocytopenia, unspecified E11.9 Type 2 diabetes mellitus without complications G89.4 Chronic pain syndrome R53.1 Weakness Office Visit 02/17/2019 10:14a [facility] Anmol Luther R78.81 Bacteremia Infectious Diseases Mery Bowen I89.0 Lymphedema, not elsewhere classified E11.22 Type 2 diabetes mellitus w diabetic chronic kidney disease N18.9 Chronic kidney disease, unspecified Office Visit 02/17/2019 1:12p [facility] Janelle Devi R78.81 Bacteremia Assoc,pc Hospitalists DO R65.20 Severe sepsis without septic shock N17.9 Acute kidney failure, unspecified D64.9 Anemia, unspecified D69.6 Thrombocytopenia, unspecified R53.1 Weakness G89.4 Chronic pain syndrome Office Visit 02/16/2019 [facility] Emily R50.9 Fever, 1:11p Assoc,pc Cleopatra, SLEEVE PRESSER OPERATOR unspecified Hospitalists R53.1 Weakness N17.9 Acute kidney failure, unspecified D64.9 Anemia, unspecified Office Visit 01/03/2019 7:00a [facility] Rizwan Flores, R47.01 Aphasia Q21.1 Atrial septal defect E78.5 Hyperlipidemia, unspecified E66.9 Obesity, unspecified Office Visit 01/03/2019 11:01a [facility] Poppy Quirogaulx, G45.9 Transient Assoc,pc SLEEVE PRESSER OPERATOR cerebral ischemic Hospitalists attack, unspecified N17.9 Acute kidney failure, unspecified 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 N18.3 Chronic kidney disease, stage 3 (moderate) Office Visit 01/01/2019 7:00a [facility] Rizwan Flores, R47.01 Aphasia R41.82 Altered mental status, unspecified Office Visit 01/01/2019 [facility] Jessica Valdez, G45.9 Transient 11:01a Assoc,pc SLEEVE PRESSER OPERATOR cerebral ischemic Hospitalists attack, unspecified D69.6 Thrombocytopenia, unspecified D64.9 Anemia, unspecified R79.89 Other specified abnormal findings of blood chemistry Assessments Date Code Description Provider 03/27/2019 N18.4 Chronic kidney disease, stage 4 (severe) Marlon Berad MD 03/27/2019 K74.60 Unspecified cirrhosis of liver Marlon Beard MD 03/27/2019 E11.22 Type 2 diabetes mellitus with diabetic Marlon Beard MD chronic kidney disease 03/27/2019 E87.70 Fluid overload, unspecified Marlon Beard MD 03/27/2019 R06.02 Shortness of breath Marlon Beard MD 02/21/2019 R78.81 Bacteremia Anmol Bowen M.D. 02/21/2019 A40.8 Other streptococcal sepsis Jessica Valdez NP 02/21/2019 I89.0 Lymphedema, not elsewhere classified Anmol Bowen M.D. 02/21/2019 K72.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, unspecified without coma Jessica Valdez NP 02/21/2019 R18.8 Other ascites Jessica Valdez NP 02/21/2019 D63.1 Anemia in chronic kidney disease Jessica Valdez NP 02/21/2019 N18.9 Chronic kidney disease, unspecified Jessica Valdez NP 02/21/2019 E11.22 Type 2 diabetes mellitus with diabetic Jessica Valdez NP chronic kidney disease 02/21/2019 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 chronic kidney disease with Jessica Valdez NP stage 1 through stage 4 chronic kidney disease, or unspecified chronic kidney disease 02/21/2019 E78.5 Hyperlipidemia, unspecified Jessica Valdez NP 02/20/2019 R78.81 Bacteremia Anmol Bowen M.D. 02/20/2019 A49.1 Streptococcal infection, unspecified site Missy Olivera MD 02/20/2019 I89.0 Lymphedema, not elsewhere classified Anmol Bowen M.D. 02/20/2019 D64.9 Anemia, unspecified Missy Olivera MD 02/20/2019 I86.4 Gastric varices Missy Olivera MD 02/20/2019 D69.6 Thrombocytopenia, unspecified Missy Olivera MD 02/20/2019 E11.9 Type 2 diabetes mellitus without Missy Olivera MD complications 02/20/2019 G89.4 Chronic pain syndrome Missy Olivera MD 02/19/2019 A49.1 Streptococcal infection, unspecified site Missy Olivera MD 02/19/2019 N17.9 Acute kidney failure, unspecified Missy Olivera MD 02/19/2019 D64.9 Anemia, unspecified Missy Olivera MD 02/19/2019 I86.4 Gastric varices Missy Olivera MD 02/19/2019 D69.6 Thrombocytopenia, unspecified Missy Olivera MD 02/19/2019 E11.9 Type 2 diabetes mellitus without Missy Olivera MD complications 02/19/2019 G89.4 Chronic pain syndrome Missy Olivera MD 02/18/2019 R78.81 Bacteremia Femi Aguirre M.D. 02/18/2019 A49.1 Streptococcal infection, unspecified site Janelle Senluis, DO 02/18/2019 R65.20 Severe sepsis without septic shock Janelle Devi, DO 02/18/2019 D64.9 Anemia, unspecified Janelle Senner, DO 02/18/2019 N17.9 Acute kidney failure, unspecified Janelle Senner, DO 02/18/2019 D69.6 Thrombocytopenia, unspecified Janelle Senner, DO 02/18/2019 E11.9 Type 2 diabetes mellitus without Janelle Senner, DO complications 02/18/2019 G89.4 Chronic pain syndrome Janelle Marito, DO 02/18/2019 R53.1 Weakness Janelle Marito, DO 02/17/2019 R78.81 Bacteremia Anmol Bowen M.D. 02/17/2019 I89.0 Lymphedema, not elsewhere classified Anmol Bowen M.D. 02/17/2019 R78.81 Bacteremia Janelle Senluis, DO 02/17/2019 E11.22 Type 2 diabetes mellitus with diabetic Anmol Bowen M.D. chronic kidney disease 02/17/2019 N18.9 Chronic kidney disease, unspecified Anmol Bowen M.D. 02/17/2019 R65.20 Severe sepsis without septic shock Janelle Devi, DO 02/17/2019 N17.9 Acute kidney failure, unspecified Janelle Senner, DO 02/17/2019 D64.9 Anemia, unspecified Janelle Senner, DO 02/17/2019 D69.6 Thrombocytopenia, unspecified Janelle Senner, DO 02/17/2019 R53.1 Weakness Janelle Senner, DO 02/17/2019 G89.4 Chronic pain syndrome Janelle Senner, DO 02/16/2019 R50.9 Fever, unspecified Emily Cleopatra, SLEEVE PRESSER OPERATOR 02/16/2019 R53.1 Weakness Emily Cleopatra, SLEEVE PRESSER OPERATOR 02/16/2019 N17.9 Acute kidney failure, unspecified Emily Panaca, SLEEVE PRESSER OPERATOR 02/16/2019 D64.9 Anemia, unspecified Emily Panaca, SLEEVE PRESSER OPERATOR 01/03/2019 R47.01 Aphasia Rizwan Flores MD 01/03/2019 Q21.1 Atrial septal defect Rizwan Flores MD 01/03/2019 G45.9 Transient cerebral ischemic attack, Poppy Heather, SLEEVE PRESSER OPERATOR unspecified 01/03/2019 E78.5 Hyperlipidemia, unspecified Rizwan Flores MD 01/03/2019 E66.9 Obesity, unspecified Rizwan Flores MD 01/03/2019 N17.9 Acute kidney failure, unspecified Poppy Heather, SLEEVE PRESSER OPERATOR 01/03/2019 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 chronic kidney disease with Poppy Heather, SLEEVE PRESSER OPERATOR stage 1 through stage 4 chronic kidney disease, or unspecified chronic kidney disease 01/03/2019 N18.3 Chronic kidney disease, stage 3 Poppy Heather, SLEEVE PRESSER OPERATOR (moderate) 01/02/2019 I63.9 Cerebral infarction, unspecified Femi Aguirre M.D. 01/02/2019 G45.9 Transient cerebral ischemic attack, Poppy Heather, SLEEVE PRESSER OPERATOR unspecified 01/02/2019 N18.3 Chronic kidney disease, stage 3 Poppy Heather, SLEEVE PRESSER OPERATOR (moderate) 01/02/2019 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 chronic kidney disease with Poppy Heather, SLEEVE PRESSER OPERATOR stage 1 through stage 4 chronic kidney disease, or unspecified chronic kidney disease 01/01/2019 R47.01 Aphasia Rizwan Flores MD 01/01/2019 G45.9 Transient cerebral ischemic attack, Jessica Valdez, ELOISA unspecified 01/01/2019 R41.82 Altered mental status, unspecified Rizwan Flores MD 01/01/2019 D69.6 Thrombocytopenia, unspecified Jessica Valdez NP 01/01/2019 D64.9 Anemia, unspecified Jessica Valdez, ELOISA 01/01/2019 R79.89 Other specified abnormal findings of Jessica Valdez NP blood chemistry Plan of Treatment Future Appointment(s):04/03/2019 3:00 pm - Marlon Beard MD at [facility] Lwbjpchgmp43/30/2020 - Marlon Beard MDN18.4 Chronic kidney disease, stage 4 (severe)Follow up:1 week f/u with labs. labs msgxnP98.60 Unspecified cirrhosis of gcisoN00.22 Type 2 diabetes mellitus with diabetic chronic kidney zfsaykzS15.70 Fluid overload, eptvtacagtnJ04.02 Shortness of breath Functional Status Description No Information Available Mental Status Description No Information Available Referrals Description No Information Available
--- NOTE | 2019-04-02 13:33 | ED ---
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 Patient reports occasional nausea. Patient denies abd pain and urinary symptoms. PMHx of chronic renal failure but is not on dialysis. No PMHx of CHF. The patient rates the pain 0/10 in severity. Symptoms aggravated by nothing. Symptoms alleviated by nothing. - History Of Current Complaint Chief Complaint: EDGeneral Time Seen by Provider: 04/02/19 13:23 Hx Obtained From: Patient Onset/Duration: Lasting Days, Still Present Timing: Constant Severity Currently: Mild Aggravating Factor(s): nothing Alleviating Factor(s): nothing Associated Signs And Symptoms: Positive: Nausea - occasional. Negative: Abdominal Pain, Dysuria - Allergies/Home Medications Allergies/Adverse Reactions: Allergies Allergy/AdvReac Type Severity Reaction Status Date / Time No Known Allergies Allergy Verified 04/02/19 11:22 Home Medications: Home Medications Atenolol TAB* [Tenormin TAB* 50 MG] 50 mg PO DAILY 04/02/19 [History Confirmed 04/02/19] Furosemide TAB* [Lasix TAB*] 20 - 40 mg PO DAILY 04/02/19 [History Confirmed 07/15] Nystatin CREAM* 1 applic TOPICAL BID 04/02/19 [History Confirmed 04/02/19] [place]-3 Fatty Acids (Nf) [Fish Oil (NF)] 1,000 mg PO DAILY 04/02/19 [History Confirmed 04/02/19] Omeprazole CAP (NF) [Prilosec CAP* 20 MG] 20 mg PO DAILY 04/02/19 [History Confirmed 04/02/19] oxyCODONE TAB* [Roxycodone TAB 5 mg*] 10 mg PO BID 04/02/19 [History Confirmed 04/02/19] PMH/Surg Hx/FS Hx/Imm Hx Endocrine/Hematology History: Reports: Hx Diabetes Cardiovascular History: Reports: Hx Coronary Artery Disease, Hx Hypercholesterolemia, Hx Hypertension, Other Cardiovascular Problems/Disorders - 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 Denies: Hx Angina, Hx Myocardial Infarction, Hx Pacemaker/ICD Respiratory History: Denies: Hx Asthma, Hx Chronic Obstructive Pulmonary Disease (COPD) GI History: Reports: Hx Gastroesophageal Reflux Disease, Hx Ulcer, Other GI Disorders - Gastic ulcers, hx non alcoholi cirrhiosis History: Reports: Hx Acute Renal Failure, Hx Chronic Renal Failure - Chronic renal fx r/t naproxen Musculoskeletal History: Reports: Hx Arthritis - knees, Hx Back Problems, Hx Osteoporosis Sensory History: Reports: Hx Cataracts, Hx Contacts or Glasses - Reading, Hx Vision Problem, Hx Hearing Aid - QAWALANGIN Denies: Hx Eye Injury, Hx Macular Degeneration, Hx Deafness, Other Sensory Impairments Opthamlomology History: Reports: Hx Cataracts, Hx Contacts or Glasses - Reading , Hx Vision Problem Denies: Hx Eye Injury, Hx Macular Degeneration, Other Sensory Impairments Neurological History: Reports: Other Neuro Impairments/Disorders - RLS Psychiatric History: Denies: Hx Panic Disorder - Cancer History Cancer Type, Location and Year: BRAIN TUMOR S/P 30 YRS - Surgical History Surgery Procedure, Year, and Place: Tonsillectomy, catarats Infectious Disease History: No Infectious Disease History: Denies: Hx Hepatitis, Hx of Known/Suspected MRSA, Hx Shingles, Hx Tuberculosis, Hx Known/Suspected VRE, Hx Known/Suspected VRSA, Traveled Outside the in Last 30 Days - Family History Known Family History: Positive: Cardiac Disease - [place] - Social History Alcohol Use: None Hx Substance Use: No Substance Use Type: Reports: None Substance Use Comment - Amount & Last Used: unknown Smoking Status (MU): Never Smoked Tobacco Review of Systems Constitutional: Other - abnormal creatinine levels Positive: Nausea - occasional. Negative: Abdominal Pain Negative: dysuria, hematuria All Other Systems Reviewed And Are Negative: Yes Physical Exam - Summary Physical Exam Summary: Constitutional: morbid obesity Skin: Warm, Dry HENT: Normocephalic; Atraumatic Eyes: Conjunctiva normal Neck: Musculoskeletal ROM normal neck. (-) JVD, (-) Stridor, (-) Tracheal deviation Cardio: Rhythm regular, rate normal, Heart sounds normal; Intact distal pulses; The pedal pulses are 2+ and symmetric. Radial pulses are 2+ and symmetric. (-) Murmur Pulmonary/Chest wall: Effort normal. (-) Respiratory distress, (-) Wheezes, (-) Rales Abd: Soft, (-) tenderness, (-) Distension, (-) Guarding, (-) Rebound Musculoskeletal: (-) Edema Lymph: (-) Cervical adenopathy Neuro: Alert, Oriented x3 Psych: Mood and affect Normal Triage Information Reviewed: Yes Vital Signs On Initial Exam: Initial Vitals Temp Pulse Resp BP Pulse Ox 97.9 F 71 18 126/67 100 04/02/19 11:17 04/02/19 11:17 04/02/19 11:17 04/02/19 11:17 04/02/19 11:17 Vital Signs Reviewed: Yes Procedures - Sedation Patient Received Moderate/Deep Sedation with Procedure: No Diagnostics - Vital Signs Vital Signs Temp Pulse Resp BP Pulse Ox 04/02/19 11:17 97.9 F 71 18 126/67 100 - Laboratory Result Diagrams: 04/02/19 13:39 04/02/19 13:39 Lab Statement: Any lab studies that have been ordered have been reviewed, and results considered in the medical decision making process. - EKG 1344 Cardiac Rate: Bradycardia Summary of EKG Findings: EKG at 1344 reveals bradycardia with a rate of 57 bpm. No ischemic changes. has reviewed and interpreted this report. 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 Physical exam findings: morbid obesity. Bloodwork results with no significant abnormalities except for L RBC, L Hgb, L Hct, H MCV, H MCH,H RDW, L Plt Count, H Absolute Monos, H Absolute Eos, H Chloride, L Carbon Dioxide, H BUN, H Creatinine, L Calcium. EKG at 1344 reveals bradycardia with a rate of 57 bpm. No ischemic changes. In the ED course, the patient was given nothing. We discussed patient care with at 1535 who recommended admission. The patient will be admitted to the hospitalist. The patient is agreeable with this plan. - Diagnoses Provider Diagnoses: Anemia, Chronic kidney disease - Physician Notifications Discussed Care Of Patient With: Denver Live - admit Time Discussed With Above Provider: 15:35 Instructed by Provider To: Admit As Inpatient Discharge ED - Sign-Out/Discharge Documenting (check all that apply): Patient Departure - admit - Discharge Plan Condition: Stable Disposition: ADMITTED TO [facility] Referrals: Rafat Senior MD [Primary Care Provider] - - Billing Disposition and Condition Condition: STABLE Disposition: Admitted to [facility] - Attestation Statements Document Initiated by Neftaly: Yes Documenting Scribe: Gary Gay Provider For Whom Neftaly is Documenting (Include Credential): Holden Betancourt DO Scribe Attestation: IGary, scribed for Holden Betancourt DO on 04/02/19 at 1742. Scribe Documentation Reviewed: Yes Provider Attestation: The documentation as recorded by the Gary bryant accurately reflects the service I personally performed and the decisions made by me, Holden Betancourt DO Status of Scribe Document: Viewed
[2019-04-02 13:55] LABS: Hematocrit 21 % (35-47); Hemoglobin 6.8 g/dL (12.0-16.0); Mean Corpuscular HGB Conc 32 g/dL (31-36); Mean Corpuscular Hemoglobin 33 pg (27-31); Mean Corpuscular Volume 103 fL (80-97); Mean Platelet Volume 9.9 fL (7.4-10.4); Platelet Count 105 10^3/uL (150-450); Red Blood Count 2.05 10^6 /uL (3.70-4.87); Red Cell Distribution Width 23 % (10-15); White Blood Count 7.4 10^3/uL (3.5-10.8)
[2019-04-02 14:14] LABS: ABS Basophils 0.1 10^3/ul (0-0.2); ABS Eosinophils 0.7 10^3/ul (0-0.6); ABS Lymphocytes 1.8 10^3/ul (1.0-4.8); ABS Monocytes 0.9 10^3/ul (0-0.8); ABS Neutrophils 3.9 10^3/ul (1.5-7.7); Eosinophil % 9.6 %; Lymphocyte % 24.5 %; Nucleated Red Blood Cells % 0.3
[2019-04-02 14:18] LABS: Polychromasia 1+
[2019-04-02 14:24] LABS: BUN/Creatinine Ratio 11.7 (8-20); Blood Urea Nitrogen 57 mg/dL (6-24); CO2 Carbon Dioxide 17 mmol/L (22-32); Calcium 8.5 mg/dL (8.6-10.3); EGFR African American 10.6 (>60); EGFR Non-African American 8.7 (>60); Glucose 80 mg/dL (70-100); Magnesium 2.4 mg/dL (1.9-2.7); Potassium 4.3 mmol/L (3.5-5.0); Sodium 137 mmol/L (135-145)
[2019-04-02 14:26] LABS: Anion Gap 7 mmol/L (2-11); Chloride 113 mmol/L (101-111)
[2019-04-02 16:39] LABS: INR 1.26 (0.82-1.09)
[2019-04-02] MEDS ORDERED: oxyCODONE TAB* 5 MG TAB PO PRN (17:18)
[2019-04-02 17:20] LABS: % Iron Saturation 28 % (15-55); Iron 66 ug/dL (50-212); Total Iron Binding Capacity 234 mcg/dL (250-450); Transferrin 167 mg/dL (203-362)
[2019-04-02] MEDS ORDERED: Dextrose 50% Syringe 50 ML* 25 GM/50 ML SYRINGE IV PUSH PRN (17:26)
[2019-04-02 17:40] LABS: Ferritin 120.7 ng/mL (11-307)
[2019-04-02 17:43] LABS: Folate 8.04 ng/mL (>3.99)
[2019-04-02] MEDS ORDERED: Albumin Human 25%* 25 GM/100 ML BTL IV SCH (18:45)
--- NOTE | 2019-04-02 20:06 | HP ---
CC: Dr. Senior; Dr. Beard * HISTORY AND PHYSICAL: DATE OF ADMISSION: 04/02/19 PRIMARY CARE PROVIDER: Dr. Senior. OTHER PROVIDERS: Dr. Metcalf. ATTENDING PHYSICIAN: Dr. Live * (dictated by Derrick Gaytan, ELOISA) CHIEF COMPLAINT: Abnormal labs. HISTORY OF PRESENT ILLNESS: Mrs. Dirk Hankins is a 73-year-old female with a past medical history significant for TIA, hypertension, diabetes, hyperammonemia , chronic kidney disease, thrombocytopenia, GERD, gout, anemia; who presented to the emergency department today on recommendations of Dr. Metcalf, Nephrology due to anemia and elevated creatinine. I discussed this patient with Dr. Metcalf and it is my understanding that he saw the patient in the office, had labs completed, and found that she was significantly anemic with the hemoglobin and hematocrit of 6.8 and 21 respectively. She was also noted to have acute on chronic kidney disease with a creatinine of 5.41. Given these findings in addition to Mrs. Dirk Hankins's comorbidities of kidney disease, cryptogenic cirrhosis/GODFREY and morbid obesity, she was sent to the emergency room for further evaluation/treatment and hospitalists were asked to evaluated her for admission. PAST MEDICAL HISTORY: 1. TIA. 2. Hypertension. 3. Diabetes. 4. Hyperammonemia. 5. Chronic kidney disease. 6. Thrombocytopenia. 7. GERD. 8. Gout. 9. Anemia. PAST SURGICAL HISTORY: 1. Tonsillectomy. 2. 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 HOME MEDICATIONS: 1. Atenolol 50 mg p.o. daily. 2. Nystatin 1 application topical b.i.d. 3. Lasix 20 to 40 mg p.o. daily. 4. Oxycodone 10 mg p.o. b.i.d. 5. [place]-3 fatty acids 1000 mg p.o. daily. 6. Prilosec 20 mg p.o. daily. 7. Ferrous gluconate 324 mg p.o. daily. 8. Lisinopril 20 mg p.o. daily. 9. Lactulose 30 mg p.o. t.i.d. 10. Insulin glargine 15 units subcu b.i.d. 11. Lipitor 40 mg p.o. 1700. 12. CBD extract 1 application topical daily. 13. Aspirin 81 mg p.o. daily. 14. Allopurinol 300 mg p.o. daily. ALLERGIES: No known drug allergies. FAMILY HISTORY: Mother had a history of AR at age 73. Father has a history of AR at age 70. Father with diabetes. No reported history of cancer. SOCIAL HISTORY: The patient denies smoking, alcohol, illicit drug use. The patient is . She lives with her , Lj Hankins. Her will be her healthcare proxy in the event she cannot make decisions for herself. The patient is a full code. REVIEW OF SYSTEMS: The patient denies fevers, anorexia, chest pain, cough, hemoptysis, nausea, vomiting, abdominal pain, gross hematuria, dysuria, focal weakness, visual complaints, dysphagia, arthralgias, myalgias, rash, lesions, anxiety. The patient does report edema which is chronic for her. The patient reports occasional shortness of breath which she attributes to her edema. The patient reports diarrhea which she attributes to her lactulose. PHYSICAL EXAMINATION GENERAL: Mrs. Dirk Hankins is a 73-year-old female who is morbidly obese. She is lying in bed. Appears to be in no acute distress. VITAL SIGNS: Temp 97.9, HR is 64 , RR 18, O2 saturation 97% on room air, BP 127 /47. HEENT: EOMs intact. Sclerae are without icterus. Oral mucosa is moist without lesion. Posterior pharynx is clear. NECK: No lymphadenopathy. No pain to palpation. RESPIRATORY: Symmetrical chest expansion. No accessory muscle use. Lungs are clear to auscultation. No rhonchi, wheezes or rubs. CV: Regular rate and rhythm. S1, S2 present. ABDOMEN: Soft, large, and nontender. Bowel sounds normoactive. EXTREMITIES: Skin is warm and smooth bilaterally. The patient has +2 edema bilaterally. Pedal pulses 2+ bilaterally. MUSCULOSKELETAL: No pain or deformities. NEURO: Awake, alert and oriented x4. Cranial nerves II through XII are grossly intact. Motor strength is 5/5 in the upper and lower extremities. SKIN: Grossly intact. DIAGNOSTIC STUDIES/LAB DATA: WBC 7.4, hemoglobin 6.8, hematocrit 21, platelets 105. INR 1.26. Sodium 137, potassium 4.3, chloride 113, carbon dioxide 17, BUN 57, creatinine 4.87, magnesium 2.4. Iron panel is pending. EKG: Bradycardia, low voltage. ASSESSMENT AND PLAN: Mrs. Dirk Hankins is a 73-year-old female with past medical history significant for transient ischemic attack, hypertension, diabetes, hyperammonemia, chronic kidney disease, thrombocytopenia; who presented to the emergency department today due to anemia and elevated creatinine. 1. Anemia: The patient's hemoglobin and hematocrit is 6.8 and 21 respectively. This is down from her baseline around 7.7 to 9.8 and mid 20s. It should be noted that the patient had an EGD in January of [address] Erika Barrientos, which revealed medium to large varices and also an area of an erosion. Given these findings, I have contacted Dr. Erika Barrientos who believes it would beneficial for the patient to receive an EGD. She will be seen by Dr. Moya in the morning for an EGD. The patient is to be n.p.o. after midnight. Dr. Betancourt is sending a stool occult for blood. I also spoke to Dr. Metcalf regarding these labs and on his recommendation I have ordered I unit of packed red blood cells now and albumin 100 g today and tomorrow. 2. Elevated creatinine: The patient has acute on chronic kidney disease with a creatinine of 4.87 today. As mentioned above, Dr. Metcalf will be consulting. He recommends we hold diuretics and stop lisinopril which has been done. Dr. Metcalf or his partner will see her tomorrow. We will repeat her creatinine tomorrow. 3. Thrombocytopenia: As mentioned above, the patient carries a history of thrombocytopenia. We suspect this is secondary to her liver and kidney disease. We will monitor her platelet level. 4. Hyperammonemia: The patient carries a history of high ammonia level. We have ordered ammonia to be added to her labs in the emergency room. She does not have any signs or symptoms of an elevated ammonia. 5. Cirrhosis/nonalcoholic steatohepatitis: After discussing the patient's history with Dr. Metcalf, given her cirrhosis/nonalcoholic steatohepatitis, we will be giving albumin as mentioned above. We will also be giving octreotide 100 mcg subcu t.i.d. If the patient's blood pressure were to drop, he recommends administrating midodrine, but at this time we can hold. 6. Transient ischemic attack: The patient has a history of a transient ischemic attack. We will continue her aspirin. 7. Hypertension: The patient is currently normotensive. We will hold the patient's lisinopril and diuretics given her elevated creatinine. We will continue the patient's beta-pratik and monitor her blood pressure routinely. 8. Diabetes: The patient is on glargine 15 units b.i.d. at home. She will be hospitalized and will have a change in her diet. I will change this to 15 units daily of glargine. I will also add a sliding scale on fingersticks. 9. Gastroesophageal reflux disease: We will continue the patient's Protonix. The patient has known varices. She will be seen by Dr. Moya tomorrow morning for an EGD. 10. Gout: The patient is not currently in a flare. We will continue her allopurinol. 11. FEN: I have placed the patient on renal diet. She will be n.p.o. after midnight for EGD. 12. Code status: The patient is a full code. 13. DVT prophylaxis: Based on DVT Risk Assessment, the patient is high risk. I will order SCDs. I am holding on chemical prophylaxis given the patient's anemia. TIME SPENT: Approximately 70 minutes was spent on this admission, greater than half the time was spent with the patient and obtaining my history, performing physical exam and reviewing my plan of care. The case has been reviewed with my attending Dr. Live, who is in agreement with my plan of care. Reviewed by DERRICK GAYTAN NP 04/19/19 @ 1401 [id number]/[facility] #: [id number] CYDNEY
[2019-04-02] MEDS: Nystatin CREAM* 15 GM TUBE TOPICAL SCH (23:00)
[2019-04-02] MEDS: Octreotide Acetate* 100 MCG/ML 1 ML VIAL SUBCUT SCH (23:00)
[2019-04-03] MEDS: Albumin Human 25%* 25 GM/100 ML BTL IV SCH ×4 (03:32→15:03)
[2019-04-03 06:33] LABS: INR 1.31 (0.82-1.09)
[2019-04-03 06:45] LABS: Albumin 2.5 g/dL (3.2-5.2); Albumin/Globulin Ratio 0.7 (1-3); Calcium 8.6 mg/dL (8.6-10.3); EGFR African American 11.4 (>60); EGFR Non-African American 9.4 (>60); Globulin 3.7 g/dL (2-4); Potassium 4.7 mmol/L (3.5-5.0); Total Bilirubin 1.2 mg/dL (0.2-1.0); Total Protein 6.2 g/dL (6.4-8.9)
[2019-04-03 06:50] LABS: Hematocrit 20 % (35-47); Hemoglobin 6.8 g/dL (12.0-16.0); Mean Corpuscular HGB Conc 34 g/dL (31-36); Mean Corpuscular Hemoglobin 34 pg (27-31); Mean Corpuscular Volume 99 fL (80-97); Mean Platelet Volume 9.7 fL (7.4-10.4); Platelet Count 81 10^3/uL (150-450); Red Blood Count 2.03 10^6 /uL (3.70-4.87); Red Cell Distribution Width 23 % (10-15); White Blood Count 6.6 10^3/uL (3.5-10.8)
[2019-04-03] MEDS ORDERED: oxyCODONE TAB* 5 MG TAB PO PRN (07:16)
[2019-04-03] MEDS ORDERED: Insulin LISPRO* 1 UNITS UNIT SUBCUT SCH ×2 (07:30→09:00)
[2019-04-03 08:11] LABS: ABS Basophils 0.1 10^3/ul (0-0.2); ABS Eosinophils 1.1 10^3/ul (0-0.6); ABS Monocytes 0.6 10^3/ul (0-0.8); ABS Neutrophils 2.8 10^3/ul (1.5-7.7); Eosinophil % 16.4 %; Lymphocyte % 30.8 %; Nucleated Red Blood Cells % 0.2
[2019-04-03] MEDS ORDERED: Insulin GLARGINE(*) 1 UNITS UNIT SUBCUT SCH (09:00)
[2019-04-03] MEDS ORDERED: Aspirin EC TAB* 81 MG TAB.EC PO SCH (09:00)
[2019-04-03] MEDS ORDERED: Pantoprazole TAB * 40 MG TAB PO SCH (09:00)
[2019-04-03] MEDS ORDERED: Atenolol TAB* 25 MG PO SCH (09:00)
[2019-04-03] MEDS ORDERED: Midazolam* 1 MG/ML 5 ML VIAL (5 MG) ONE (11:41)
[2019-04-03] MEDS ORDERED: fentaNYL* 50 MCG/ML 2 ML VIAL (100 MCG VIAL) ONE (11:57)
[2019-04-03] MEDS ORDERED: Benzocaine/Butamben/Tetracain (CETACAINE - SINGLE USE) 5 gm TOPICAL ONE (11:58)
[2019-04-03] MEDS ORDERED: KETAMINE HCL* 50 MG/ML 10 ML VIAL ONE (12:01)
[2019-04-03] MEDS ORDERED: Naloxone* 0.4 MG/ML 1 ML VIAL IV PRN (12:17)
[2019-04-03] MEDS ORDERED: Ondansetron INJ* 2 MG/ML VIAL IV PRN (12:17)
[2019-04-03] MEDS ORDERED: fentaNYL* 50 MCG/ML 2 ML VIAL (100 MCG VIAL) IV PRN (12:17)
--- NOTE | 2019-04-03 12:41 | OP ---
Operative Report - Blank - Operative Report Date of Operation: 04/03/19 Note: Pre-OP Diagnoses: GI bleed, no access Post-op Diagnosis: same Procedure: placement of central line Surgeon: Lenka Asst: none Anethesia: shakir mac EBL: minimal IVF: crystalloid Specimen: none Drains: 3 lumen catheter via R IJV
--- NOTE | 2019-04-03 14:02 | PN ---
Subjective Date of Service: 04/03/19 Interval History: Patient denies significant complaint including abdominal pain, hematochezia, CP , SOB, F/C, melena, N/V, or other pain. Patient denies recent increase in abdominal distention. Patient has been told previously that she had ascites. Family History: Unchanged from Admission Social History: Unchanged from Admission Past Medical History: Unchanged from Admission Objective Active Medications: Allopurinol (Zyloprim Tab*) 100 mg PO DAILY [facility] Atorvastatin Calcium (Lipitor*) 40 mg PO 1700 [facility] Dextrose (D50w Syringe 50 Ml*) 12.5 gm IV PUSH .FOR FS < 60 - SS PRN PRN Reason: FS < 60 Fentanyl Citrate (Fentanyl*) 25 mcg IV Q2M PRN PRN Reason: PAIN - MODERATE Albumin Human (Albumin Human 25%*) 25 gm in 100 mls @ 0 mls/hr IV Q20M [facility]; Protocol Stop: 04/03/19 19:01 Insulin Human Lispro (Humalog*) 0 units SUBCUT Q6H [facility]; Protocol Last Admin: 04/03/19 08:41 Dose: Not Given Lactulose (Lactulose*) 30 ml PO TID [facility] Last Admin: 04/03/19 10:56 Dose: Not Given Naloxone HCl (Narcan*) 0.08 mg IV Q2M PRN PRN Reason: severe induced resp depression Nystatin (Nystatin Cream*) 1 applic TOPICAL BID [facility] Last Admin: 04/02/19 23:00 Dose: Not Given Octreotide Acetate (Octreotide Acetate*) 100 mcg SUBCUT TID [facility] Last Admin: 04/02/19 23:00 Dose: Not Given Ondansetron HCl (Zofran Inj*) 4 mg IV ONCE PRN PRN Reason: NAUSEA/VOMITING Oxycodone HCl (Roxycodone Tab*) 5 mg PO BID PRN PRN Reason: PAIN - MODERATE Pantoprazole Sodium (Protonix Iv*) 40 mg IV Q12H [facility] Vital Signs - 8 hr 04/03/19 04/03/19 04/03/19 06:32 07:40 07:41 Temperature 97.5 F 97.5 F 97.5 F Pulse Rate 49 50 50 Respiratory 17 13 13 Rate Blood Pressure 107/43 98/50 99/35 (mmHg) O2 Sat by Pulse 100 100 Oximetry 04/03/19 04/03/19 04/03/19 08:10 10:00 10:19 Temperature 98 F 97.6 F 97.5 F Pulse Rate 51 51 59 Respiratory 12 14 16 Rate Blood Pressure 104/39 106/36 119/38 (mmHg) O2 Sat by Pulse 100 100 100 Oximetry 04/03/19 04/03/19 04/03/19 12:35 12:37 12:38 Temperature 97.5 F Pulse Rate 66 70 68 Respiratory 14 Rate Blood Pressure 118/40 125/50 (mmHg) O2 Sat by Pulse 100 98 99 Oximetry 04/03/19 04/03/19 04/03/19 12:40 12:41 13:00 Temperature 97.3 F Pulse Rate 65 67 60 Respiratory 18 4 18 Rate Blood Pressure 114/46 118/40 102/38 (mmHg) O2 Sat by Pulse 99 100 99 Oximetry 04/03/19 13:33 Temperature 97.5 F Pulse Rate 62 Respiratory 16 Rate Blood Pressure 102/38 (mmHg) O2 Sat by Pulse 99 Oximetry Oxygen Devices in Use Now: None Appearance: Patient is a 73yo female who appears stated age and is sitting in the bed in NAD. Eyes: No Scleral Icterus, PERRLA Ears/Nose/Mouth/Throat: NL Teeth, Lips, Gums, Clear Oropharnyx, Mucous Membranes Moist Neck: NL Appearance and Movements; NL JVP, Trachea Midline Respiratory: Symmetrical Chest Expansion and Respiratory Effort, Clear to Auscultation Cardiovascular: NL Sounds; No Murmurs; No JVD, RRR, - - 2+ B/L LE edema Abdominal: - - Very Large abdomen with skin changes consistent with lymphedema. Normoactive bowel sounds. Unable to perform fluid wave. Lymphatic: No Cervical Adenopathy Extremities: No Clubbing, Cyanosis Skin: No Nodules or Sclerosis Neurological: Alert and Oriented x 3, NL Sensation, NL Muscle Strength and Tone , - - CN II-XII intact. Result Diagrams: 04/03/19 06:20 04/03/19 06:20 Microbiology and Other Data: Microbiology 04/02/19 17:09 Stool Occult Blood (MALIHA) - Final Stool Assess/Plan/Problems-Billing Assessment: Patient is a 73yo female with a PMH for GODFREY/Cirrhosis, CKD, DM II, HTN, TIA, here with severe worsening in her renal function and anemia requiring transfusion and concern for HRS. - Patient Problems (1) Acute kidney injury Current Visit: No Status: Acute Priority: High Onset Date: 03/19/14 Code (s): N17.9 - ACUTE KIDNEY FAILURE, UNSPECIFIED SNOMED Code(s): 03401236 Comment: - Severe, Cret up to 4.5 - Unclear cause, UA and Sodium pending - Differential includes Prerenal, Fluid overload, or HRS - Nephrology consult pending - Continue Albumin and Octreotide, hold on midodrine at this time. (2) Non-alcoholic cirrhosis Current Visit: No Status: Acute Comment: - Due to GODFREY with history of Thrombocytopenia, Varices without bleeding, HE - Albumin low and INR high - Continue Lactulose, albumin (3) Anemia Current Visit: No Status: Acute Code(s): D64.9 - ANEMIA, UNSPECIFIED SNOMED Code(s): 907432711 Comment: - With stool occult blood positive - Oozing erosion on EGD without bleeding varix - S/P 2u PRBC - CKD or AOCD possibly contributing, not iron or vitamin deficient - PPI IV BID - Octreotide for possible HRS - Epo level last admission not appropriately elevated for level of anemia (4) Chronic pain syndrome Current Visit: No Status: Acute Code(s): G89.4 - CHRONIC PAIN SYNDROME SNOMED Code(s): 355008375 Comment: - Continue reduced dose oxycodone (5) Gastric varices Current Visit: No Status: Acute Code(s): I86.4 - GASTRIC VARICES SNOMED Code(s): 38219423 Comment: - Due to GODFREY/Cirrhosis - Not bleeding at this time - Resume Atenolol when BP improves for primary prophylaxis. (6) Hepatic encephalopathy Current Visit: No Status: Acute Code(s): K72.90 - HEPATIC FAILURE, UNSPECIFIED WITHOUT COMA SNOMED Code(s): 76564003 Comment: - History of HE - Possibly subclinical or worsened with GI bleeding. - Continue lactulose at this time for 2-3 BMs daily. (7) Peptic ulcer disease Current Visit: No Status: Acute Code(s): K27.9 - PEPTIC ULC, SITE UNSP, UNSP AC OR CHR, W/O HEMOR OR PERF SNOMED Code(s): 52446381 Comment: - BID IV PPI for now (8) TIA (transient ischemic attack) Current Visit: No Status: Acute Code(s): G45.9 - TRANSIENT CEREBRAL ISCHEMIC ATTACK, UNSPECIFIED SNOMED Code(s): 440169126 Comment: - History TIA - Continue Statin, hold ASA (9) Thrombocytopenia Current Visit: No Status: Acute Code(s): D69.6 - THROMBOCYTOPENIA, UNSPECIFIED SNOMED Code(s): 635400586 Comment: - Chronic, due to Cirrhosis (10) Diabetes mellitus Current Visit: No Status: Chronic Code(s): E11.9 - TYPE 2 DIABETES MELLITUS WITHOUT COMPLICATIONS SNOMED Code(s): 45977701 Comment: - SSI with lantus held while NPO (11) DVT prophylaxis Current Visit: No Status: Acute Priority: Medium Onset Date: 03/19/14 Code(s): VBD3179 - SNOMED Code(s): 724599029 Comment: - No chemical DVT prophylaxis in GI bleeding - SCDs (12) Full code status Current Visit: No Status: Acute Priority: Medium Onset Date: 03/19/14 Code(s): Z78.9 - OTHER SPECIFIED HEALTH STATUS SNOMED Code(s): 936317188 Comment: Status and Disposition: Inpatient for GI bleed.
[2019-04-03] MEDS: Octreotide Acetate* 100 MCG/ML 1 ML VIAL SUBCUT SCH ×3 (14:19→20:20)
[2019-04-03] MEDS: Pantoprazole IV* 40 MG IV SCH ×2 (14:20→20:21)
--- NOTE | 2019-04-03 14:24 | CONSULT ---
Consult Consult: Consult requested for: LEONILA on CKD. HRS Consult requested by: Dr. Live, Hospitalist Performed by Dr. Win Beard, [facility] Nephrology 04/03/2019 73 YO WF She was seen in clinic last , sent for blood work. Labs were reviewed yesterday and I found severe Anemia & LEONILA on CKD. Hb dropped from 9.8~2018 to 7.2~03/27/2019. K was 5.5 & BUN/sCr 52/5.41~03/27/2019 from 34/2.56~2018. Albumin was very low 2.0. Shes in decompensated Liver failure, HRS. I spoke to ED and the admitting team to consult GI, transfuse blood and rule out GI bleeding which is a major cause of HRS. She had EGD today. I advised HRS treatment protocol with Albumin 100 gm qd for 2 days and Octreotide. ACEI is on Hold, and not on diuretics. Of note, had a severe episode of LEONILA sCr 6.61~02/2014 likely NSAIDs, improved to 1.0 within 1 month Yesterday, I talked to Bonnie & Pietro about the critical nature of her results and he overall poor prognosis. Bun/sCr today better 55/4.58~04/03 were 52/4.87~04/02 & 52/5.41~03/27 after stopping RAAS and giving Albumin She's morbid obesity, has a pannus with lymphedema and blisters. Has Liver cirrhosis. Liver US~01/2019, nodular liver and mild ascites. 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 DM on Insulin PMH: TIA Cirrhosis DM Atrial Septal Defect Chronic Kidney Disease Morbid obesity. Lymphedema of pannus. HTN Gout. Anemia. HomeMeds: Medication Instructions Recorded Confirmed Type Allopurinol TAB* [Zyloprim 300 MG 300 mg PO DAILY 01/01/19 04/02/19 History TAB*] Cannabidiol (CBD) Extract (NF) 1 applic TOPICAL DAILY 01/01/19 04/02/19 History [Epidiolex (NF)] Atenolol TAB* [Tenormin TAB* 50 MG] 50 mg PO DAILY 04/02/19 04/02/19 History Furosemide TAB* [Lasix TAB*] 20 - 40 mg PO DAILY 04/02/19 04/02/19 History Nystatin CREAM* 1 applic TOPICAL BID 04/02/19 04/02/19 History Dodge-3 Fatty Acids (Nf) [Fish Oil 1,000 mg PO DAILY 04/02/19 04/02/19 History (NF)] Omeprazole CAP (NF) [Prilosec CAP* 20 mg PO DAILY 04/02/19 04/02/19 History 20 MG] oxyCODONE TAB* [Roxycodone TAB 5 10 mg PO BID 04/02/19 04/02/19 History mg*] Hospital Meds: Allopurinol Atorvastatin Albumin Human Insulin Human Lispro Lactulose Nystatin Octreotide Oxycodone Pantoprazole Allergies: No Known Allergies Allergy (Verified 04/02/19 11:22) SOCIAL HISTORY: She lives with her . She is a nonsmoker. No travel. FAMILY HISTORY: Mother had an CT at age 73. Father had an CT at age 70. 12-Point Review of System obtained: Constitutional: Fatigue & poor energy Eyes No blurry vision. No red eye CV: Exertional SOB, no chest pain no syncope, severe edema Respiratory: SOB no cough no wheezing G.I: no diarrhea no nausea no vomiting no pain no blood per rectum no burning no obstruction symptoms Skin no rash Neurology No seizures or neurologic deficit Endocrine No diabetes, no heat or cold intolerance Hem/Lymphatic no bleeding no lymph nodes swelling Immune/Allergy no allergic reactions Musculoskeletal: No arthritis, no swelling Psych no anxiety no depression no hallucination Objective: Vital Signs Temp 97.5 F 04/03/19 13:33 Pulse 62 04/03/19 13:33 Resp 16 04/03/19 13:33 BP 102/38 04/03/19 13:33 Pulse Ox 99 04/03/19 13:33 Intake & Output 04/02/19 04/03/19 04/03/19 18:59 06:59 18:59 Intake Total 375 750 Output Total 0 Balance 375 750 Weight 173.817 kg Intake: IV Fluids 75 250 NS 250 blood 75 IVPB 300 blood 300 Oral 0 0 Packed Cells 500 Output: Urine 0 Other: # Bowel Movements 0 # Voids 0 10 Point multi system exam: Constitutional Alert Oriented x 3 HEENT: No Conjunctivitis Abdomen Soft Abdomen No Ascites, Huge pannus Heart: NSR, ++ LE Edema, No murmur Lungs: Clear to auscultation Extremities: ++ edema, no rash Skin no rash Neurology No deficit. CN intact Hem/Lymph: no palpable lymph nodes Musculoskeletal: No joint swelling Laboratory Reviewed Sodium 137 mmol/L (135-145) 04/03/19 06:20 Potassium 4.7 mmol/L (3.5-5.0) 04/03/19 06:20 BUN 55 mg/dL (6-24) H 04/03/19 06:20 Creatinine 4.58 mg/dL (0.51-0.95) H 04/03/19 06:20 Calcium 8.6 mg/dL (8.6-10.3) 04/03/19 06:20 Magnesium 2.4 mg/dL (1.9-2.7) 04/02/19 13:39 AST 30 U/L (13-39) 04/03/19 06:20 ALT 9 U/L (7-52) 04/03/19 06:20 A/P LEONILA n CKFD Likely HRS. Continue Albumin 100 gm daily for 2 days, started yesterday Continue HRS regimen, Octreotide, Midodrine and Albumin. Avoid Diuretics and RAAS. Agree with EGD to R/O GI bleeding, which is a major precipitant of HRS. No indication for HD yet, but she will be futile if needed HD, in my opinion. A further discussion will in place in the near future with her and her . She was informed about lab/radiology results & prognosis. All questions were answered. She was made part of the treatment plan.
[2019-04-03] MEDS: Nystatin CREAM* 15 GM TUBE TOPICAL SCH ×2 (14:56→20:24)
[2019-04-03] MEDS: Allopurinol TAB* 100 MG PO SCH (14:57)
[2019-04-03] MEDS: Insulin LISPRO* 1 UNITS UNIT SUBCUT SCH ×2 (17:26→20:22)
[2019-04-03 17:29] LABS: Hematocrit 24 % (35-47); Hemoglobin 7.6 g/dL (12.0-16.0)
[2019-04-03] MEDS: Atorvastatin* 40 MG TAB PO SCH (17:53)
[2019-04-03] MEDS ORDERED: Albumin Human 25%* 25 GM/100 ML BTL IV SCH (18:00)
--- NOTE | 2019-04-03 20:23 | CONS ---
CC: Dr. Senior; Dr. Beard * CONSULTATION REPORT: DATE OF CONSULT: 04/03/19 REASON FOR CONSULTATION: Anemia, concern for blood loss; history of cirrhosis. HISTORY OF PRESENT ILLNESS: This is a 73-year-old female with a past medical history of TIA; hypertension; diabetes; CKD; thrombocytopenia; portal hypertension; cirrhosis, which was a recent diagnosis, who presented to the emergency room at the recommendation of her data security analyst due to anemia and significantly elevated creatinine beyond baseline. She denies any abdominal discomfort. No black or blood in the stool. She denies any dysphagia or odynophagia. Denies any fever, chills, or rigors. She notes that she has had vastly increased swelling of her legs. Denies any abdominal increase in distention but states that she has noticed that her weight has significantly increased overall. Appetite has been good. The remainder of the 14-point review of systems is grossly negative. PAST MEDICAL HISTORY: Cirrhosis with portal hypertension, complicated by gastric varices and ascites, recent diagnosis; LEONILA on CKD; TIA; hypertension; diabetes; hyperammonemia; GERD; gout. PAST SURGICAL HISTORY: Tonsillectomy. HOME MEDICATIONS: Include: 1. Atenolol. 2. Nystatin. 3. Lasix. 4. Oxycodone. 5. [place]-3. 6. Prilosec. 7. Ferrous gluconate. 8. Lisinopril. 9. Lactulose. 10. Lantus. 11. Lipitor. 12. CBD oil. 13. Aspirin. 14. Allopurinol. ALLERGIES: No known drug allergies. FAMILY HISTORY: No family history of GI cancer or IBD. SOCIAL HISTORY: Denies smoking, alcohol, or illicit drug use. REVIEW OF SYSTEMS: Remainder of the 14-point review of systems is grossly negative except for as described in the HPI. PHYSICAL EXAM: Vital Signs: Blood pressure is 117/45, pulse 50, respiratory rate 18, she is 100% on room air, T-max is 97.4. In general, alert and oriented , chronically ill appearing. HEENT: Atraumatic, normocephalic. Pupils equal, round, and reactive to light. Extraocular movements are intact. Conjunctivae are pink. Sclerae are anicteric. Cardiovascular: Bradycardic, S1, S2. Pulmonary: Diminished at the bases bilaterally. Abdomen: Obese, soft. Bowel sounds positive. Difficult to ascertain shifting dullness given body habitus. Significant anasarca even within the abdomen identified. Psych: Appropriate mood and affect. Extremities: Anasarca. DIAGNOSTIC STUDIES/LAB DATA: Hemoglobin on admission 6.8, after transfusion of 1 unit still 6.8; platelet count 105 to 81. INR 1.31. Sodium 137, chloride 113 , BUN is 55, creatinine 4.58. Calcium 8.6, magnesium 2.4. Iron 66, TIBC is 234 , bilirubin 1.2. ALT is 9, AST is 30, alkaline phosphatase is 90. ASSESSMENT AND PLAN: This is a 73-year-old female with acute on chronic anemia with history of gastric varices, portal hypertension, cirrhosis, who presents with worsening of anemia and acute kidney injury. 1. Gjczy-ys-afurgrv anemia. Potential component of blood loss. She did have gastric varices on the previous esophagogastroduodenoscopy. Given that her hemoglobin is not increased after transfusion, I will plan on an urgent esophagogastroduodenoscopy to evaluate for gastric varices as these can be difficult to treat. I will have the patient n.p.o. and will plan on esophagogastroduodenoscopy with anesthesia assistance. I discussed the risks, benefits, and alternatives with the patient and she would like to proceed. 2. Acute kidney injury on chronic kidney disease. We would recommend getting an urine sodium as quickly as possible, involve Nephrology as well. Unclear if this is hepatorenal syndrome versus worsening of medical renal disease. We will appreciate Nephrology input. Urine sodium will be helpful. 3. Cirrhosis. Serologic negative to date. On prior admission, workup was done. 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 We would continue beta- pratik for portal hypertension, lactulose for 2 to 3 bowel movements daily. Her current MELD score is 23; however, this is largely driven by her acute kidney injury. She would likely be a poor transplant candidate given the comorbidities. Recent portal vein ultrasound did not show evidence of thrombus back in January of 2019. [id number]/[facility] #: [id number] [facility]T HOSPITALAvila
--- NOTE | 2019-04-03 22:37 | OP ---
CC: Primary Care Doctor; [facility] * CONSULT/OPERATIVE REPORT: DATE OF OPERATION: 04/03/19 - ROOM #410 DATE OF : 45 SURGEON: Rasta Og MD PRE-OP DIAGNOSIS: POST-OP DIAGNOSIS: OPERATIVE PROCEDURE: INDICATIONS: I was contacted urgently by the anesthesia staff regarding Ms. Dirk Hankins who was diagnosed with a GI bleed and was scheduled for urgent EGD without significant IV access. I discussed this with the patient and recommended central line placement. Discussed the risks, benefits, and alternatives in routine fashion and the patient agreed. DESCRIPTION OF PROCEDURE: The patient was taken to the operating room, placed on the operating table in supine position. We prepped the right upper neck and chest. The right IJ vein was accessed and a wire inserted and with Seldinger technique, the triple-lumen catheter was inserted. All three lumen were flushed with saline after good aspiration of blood. Sterile dressing was then applied. The patient tolerated the procedure well. There was oozing around the skin jeane site. The patient was transferred back to the PACU in stable condition. [id number]/[facility] #: [id number] [facility]
--- NOTE | 2019-04-04 03:06 | PRO ---
CC: Dr. Senior * ESOPHAGOGASTRODUODENOSCOPY REPORT: DATE OF PROCEDURE: 04/03/19 - ROOM #404 INDICATION FOR PROCEDURE: Anemia, concern for acute blood loss, cirrhosis, history of gastric varices. PROCEDURE PERFORMED: Complete esophagogastroduodenoscopy. MEDICATIONS GIVEN: Please see anesthesia record. DESCRIPTION OF PROCEDURE: After the EGD procedure including the risks, benefits , and alternatives with the risks not limited to perforation, surgery, missed lesions, and/or were explained to the patient, written informed consent was obtained, IV medication was given, and a bite-block was placed between the teeth. The adult Olympus gastroscope was then inserted into the patient's oropharynx into the tubular esophagus. Tubular esophagus had mild GE junction variability, but no evidence of esophageal varices. Next, the scope was advanced through the lower esophageal sphincter into the stomach. No fresh or old blood was noted in the stomach. There was some retained food which limited some views especially on retroflexion in the fundus. On retroflexion, possible small gastric varices were noted, no bleeding; however, this view was limited by retained food within the fundus. Despite position changes, I was not able to get a decent look. The scope was then advanced to the antrum. There was portal hypertensive gastropathy throughout and also GAVE prevalent within the antrum. The previously noted nodularity was still present with some scant oozing, but no profuse active bleeding. The scope was then advanced through the widely patent pylorus into the duodenal bulb, C- loop, distal duodenum, and these were normal in appearance. The scope was then removed from the patient. She tolerated the procedure well. She returned to the recovery room in stable condition. IMPRESSION: 1. Complete esophagogastroduodenoscopy. 2. No evidence of acute blood loss from upper GI source. 3. Gastric antral vascular ectasia. 4. Portal hypertensive gastropathy. 5. Stable antral nodularity with scant oozing. 6. Possible small fundic gastric varices. View is limited by retained food, however. 7. Normal duodenum. RECOMMENDATIONS: At this point, I do not see evidence of overt loss. She was microscopically positive for occult blood. If she develops viktor hematochezia, may need evaluation of lower GI tract. At this point, we will clinically observe. Suspect the majority of her anemia is secondary to the LEONILA on CKD. Nephrology consult is pending along with a urine sodium which has been ordered. Unclear if this is hepatorenal syndrome versus medically intrinsic renal disease. Her MELD score is currently 23. We recommend continuing lactulose and also continuing nonselective beta-pratik for the previously noted gastric varices. Biopsies taken of the antral nodularity revealed inflammation last time without evidence of malignancy. Will benefit from daily PPI therapy. May need to consider IR paracentesis of abdomen to rule out SBP as source of decompensation. I agree with current triple therapy for hepatorenal syndrome with albumin, octreotide, and potentially midodrine. Avoid NSAIDs and RADHA inhibitor. [id number]/[facility] #: [id number] [facility]
[2019-04-04] MEDS: Albumin Human 25%* 25 GM/100 ML BTL IV SCH ×6 (03:29→20:01)
[2019-04-04 05:39] LABS: BUN/Creatinine Ratio 12.3 (8-20); Calcium 8.8 mg/dL (8.6-10.3); EGFR African American 11.2 (>60); EGFR Non-African American 9.3 (>60); Magnesium 2.5 mg/dL (1.9-2.7); Potassium 4.9 mmol/L (3.5-5.0)
[2019-04-04 05:54] LABS: Hematocrit 19 % (35-47); Hemoglobin 6.4 g/dL (12.0-16.0); Mean Corpuscular HGB Conc 33 g/dL (31-36); Mean Corpuscular Hemoglobin 33 pg (27-31); Mean Corpuscular Volume 100 fL (80-97); Mean Platelet Volume 8.8 fL (7.4-10.4); Platelet Count 66 10^3/uL (150-450); Red Blood Count 1.94 10^6 /uL (3.70-4.87); Red Cell Distribution Width 22 % (10-15); White Blood Count 5.9 10^3/uL (3.5-10.8)
[2019-04-04 06:38] LABS: ABS Basophils 0.1 10^3/ul (0-0.2); ABS Eosinophils 0.6 10^3/ul (0-0.6); ABS Lymphocytes 1.3 10^3/ul (1.0-4.8); ABS Monocytes 0.6 10^3/ul (0-0.8); ABS Neutrophils 3.4 10^3/ul (1.5-7.7); Eosinophil % 9.5 %; Lymphocyte % 21.6 %; Nucleated Red Blood Cells % 0.3
[2019-04-04] MEDS: Insulin LISPRO* 1 UNITS UNIT SUBCUT SCH ×4 (10:13→19:46)
[2019-04-04] MEDS: cefTRIAXone(*) 1 GM in NS 0.9% 50 ML* 50 ML IVPB SCH (10:13)
--- NOTE | 2019-04-04 11:04 | PN ---
Progress Note - Progress Note Date of Service: 04/04/19 Note: cc: LEONILA on CKD HPI: Mrs. Dirk Hankins is a 73 yo women admitted for severe anemia. She has a history of cirrhosis , probably due to GODFREY. she is supra morbidly obese. she was seen in our office once by Dr. Beard, and we both discussed extensively about Bonnie's history and current medical problems. she had an EGD yesterday which showed sequale of cirrhosis with portal hypertension , but no acute bleeding. despite this, she continues to show worsening anemia, requiring blood transfusions. her creatinine has remained stable in 4'since admission. baseline before admission was around 2.5 mg/dl, at the end of January. Blood pressure soft, and Lisinopril was discontinued right before she was admitted. At the time of my exam , she is drowsy, difficult to arouse. unable to give any history, so the history was taken from discussions with Dr. Beard, CAMILO Robb and review of the medical records. ROS: unable to obtain PMH: as in HPI Physical exam: Temp Pulse Resp BP SpO2 FiO2 97.2 F 56 16 132/66 100 04/04/19 11:02 04/04/19 11:02 04/04/19 11:02 04/04/19 11:02 04/04/19 11:02 patient receiving a blood transfusion when BP derrick to 132. Const: drowsy, difficult to arouse. unable to open her eyes or answer questions Heart: S1, S2 , rrr, no MRG, +6 pitting Le edema Chest: cta anteriorly Abdomen: supra obese, difficult to examine Psych: drowsy, not able to arouse fully. Medications: Allopurinol (Zyloprim Tab*) 100 mg PO DAILY [facility] Last Admin: 04/03/19 14:57 Dose: 100 mg Atorvastatin Calcium (Lipitor*) 40 mg PO 1700 [facility] Last Admin: 04/03/19 17:53 Dose: 40 mg Dextrose (D50w Syringe 50 Ml*) 12.5 gm IV PUSH .FOR FS < 60 - SS PRN PRN Reason: FS < 60 Ceftriaxone Sodium 1 gm/ (Sodium Chloride) 50 mls @ 100 mls/hr IVPB Q24H [facility] Last Admin: 04/04/19 10:13 Dose: 100 mls/hr Insulin Human Lispro (Humalog*) 0 units SUBCUT ACHS [facility]; Protocol Last Admin: 04/04/19 10:13 Dose: 3 units Lactulose (Lactulose*) 45 ml PO TID [facility] Midodrine (Midodrine) 10 mg PO TID [facility]; Protocol Last Admin: 04/03/19 20:19 Dose: 10 mg Nystatin (Nystatin Cream*) 1 applic TOPICAL BID [facility] Last Admin: 04/03/19 20:24 Dose: 1 applic Octreotide Acetate (Octreotide Acetate*) 100 mcg SUBCUT TID [facility] Last Admin: 04/04/19 11:18 Dose: 100 mcg Oxycodone HCl (Roxycodone Tab*) 5 mg PO BID PRN PRN Reason: PAIN - MODERATE Pantoprazole Sodium (Protonix Iv*) 40 mg IV Q12H [facility] Last Admin: 04/04/19 11:18 Dose: 40 mg Rifaximin (Xifaxan*) 550 mg PO BID [facility] Spironolactone (Aldactone Tab*) 25 mg PO DAILY [facility] Labs: Laboratory Last Values WBC 5.9 10^3/uL (3.5-10.8) 04/04/19 05:12 RBC 1.94 10^6 /uL (3.70-4.87) L 04/04/19 05:12 Hgb 6.4 g/dL (12.0-16.0) L* 04/04/19 05:12 Hct 19 % (35-47) L 04/04/19 05:12 MCV 100 fL (80-97) H 04/04/19 05:12 MCH 33 pg (27-31) H 04/04/19 05:12 MCHC 33 g/dL (31-36) 04/04/19 05:12 RDW 22 % (10-15) H 04/04/19 05:12 Plt Count 66 10^3/uL (150-450) L 04/04/19 05:12 MPV 8.8 fL (7.4-10.4) 04/04/19 05:12 Neut % (Auto) 58.2 % 04/04/19 05:12 Lymph % (Auto) 21.6 % 04/04/19 05:12 Ray % (Auto) 9.6 % 04/04/19 05:12 Eos % (Auto) 9.5 % 04/04/19 05:12 Baso % (Auto) 1.1 % 04/04/19 05:12 Absolute Neuts (auto) 3.4 10^3/ul (1.5-7.7) 04/04/19 05:12 Absolute Lymphs (auto) 1.3 10^3/ul (1.0-4.8) 04/04/19 05:12 Absolute Monos (auto) 0.6 10^3/ul (0-0.8) 04/04/19 05:12 Absolute Eos (auto) 0.6 10^3/ul (0-0.6) 04/04/19 05:12 Absolute Basos (auto) 0.1 10^3/ul (0-0.2) 04/04/19 05:12 Absolute Nucleated RBC 0.0 10^3/ul 04/04/19 05:12 Neutrophils % 56.0 % 04/02/19 13:39 Lymphocytes % 24.0 % 04/02/19 13:39 Monocytes % 9.0 % 04/02/19 13:39 Eosinophils % 10.0 % 04/02/19 13:39 Basophils % 1.0 % 04/02/19 13:39 Nucleated RBC % 0.3 04/04/19 05:12 Normal RBC Morphology Not Reportable 04/02/19 13:39 Polychromasia 1+ 04/02/19 13:39 Hypochromasia 1+ 04/03/19 06:20 Anisocytosis 2+ 04/03/19 06:20 Hem Pathologist Commnt 04/02/19 13:39 INR (Anticoag Therapy) 1.31 (0.82-1.09) H 04/03/19 06:20 Sodium 136 mmol/L (135-145) 04/04/19 05:12 Potassium 4.9 mmol/L (3.5-5.0) 04/04/19 05:12 Chloride 112 mmol/L (101-111) H 04/04/19 05:12 Carbon Dioxide 17 mmol/L (22-32) L 04/04/19 05:12 Anion Gap 7 mmol/L (2-11) 04/04/19 05:12 BUN 57 mg/dL (6-24) H 04/04/19 05:12 Creatinine 4.63 mg/dL (0.51-0.95) H 04/04/19 05:12 Est GFR ( Amer) 11.2 (>60) 04/04/19 05:12 Est GFR (Non-Af Amer) 9.3 (>60) 04/04/19 05:12 BUN/Creatinine Ratio 12.3 (8-20) 04/04/19 05:12 Glucose 158 mg/dL (70-100) H 04/04/19 05:12 POC Glucose (mg/dL) 189 mg/dL (70-100) H 04/04/19 08:09 Calcium 8.8 mg/dL (8.6-10.3) 04/04/19 05:12 Magnesium 2.5 mg/dL (1.9-2.7) 04/04/19 05:12 Iron 66 ug/dL (50-212) 04/02/19 13:39 TIBC 234 mcg/dL (250-450) L 04/02/19 13:39 % Saturation 28 % (15-55) 04/02/19 13:39 Unsat Iron Binding < 219 ug/dL 04/02/19 13:39 Transferrin 167 mg/dL (203-362) L 04/02/19 13:39 Ferritin 120.7 ng/mL (11-307) 04/02/19 13:39 Total Bilirubin 1.20 mg/dL (0.2-1.0) H 04/03/19 06:20 AST 30 U/L (13-39) 04/03/19 06:20 ALT 9 U/L (7-52) 04/03/19 06:20 Alkaline Phosphatase 90 U/L (34-104) 04/03/19 06:20 Ammonia 94 mcmol/L (16-53) H 04/02/19 16:22 Total Protein 6.2 g/dL (6.4-8.9) L 04/03/19 06:20 Albumin 2.5 g/dL (3.2-5.2) L 04/03/19 06:20 Globulin 3.7 g/dL (2-4) 04/03/19 06:20 Albumin/Globulin Ratio 0.7 (1-3) L 04/03/19 06:20 Vitamin B12 > 1450 pg/mL (180-914) H 04/02/19 13:39 Folate 8.04 ng/mL (>3.99) 04/02/19 13:39 U Sodium Concentration 23 mmol/L 04/03/19 20:45 Blood Type A Positive 04/02/19 13:39 Antibody Screen Negative 04/02/19 13:39 Crossmatch See Detail 04/02/19 13:39 Assessment and Plan: Bonnie is a 75 yo woman with impressive medical history including supra morbid obesity, cirrhosis due to GODFREY, complicated with portal hypertension and gastric varices, without signs of active bleeding per EGD done 04/03/2019, admitted for severe anemia and worsening kidney function. 1. LEONILA most probably be due to HRS. urinary sodium concentration was obtained after she received albumin iv, which has high content of Na, so it cannot be interpreted, but is still low, non diagnostic for ATN. She does not have any signs of an infection, and her creatinine has not decreased after blood transfusions ( volume chalenge. - HRS is diagnosis of exclusion , but given her clinical history, it is most probably present. - please continue HRS treatment ( mido/ octreotide/ albumine) 2. Volume overload due to low kidney perfusion, as a result of splahnic vasodilation of HRS. - start Furosemide 100 mg iv push over 30 min , twice a day - start spironolactone 25 mg daily - strict I/Os - limit salt intake 3. CKD stage IV, most probably due to incomplete recovery of LEONILA and some background of HRS 4. Encephalopathy - Per CAMILO Robb she was alert yesterday. Given acute change, cannot be uremia, but most probably hepatic encephopathy. Primary team to decide if they think she needs a brain imaging to rule out stroke. Plan discussed with CAMILO Robb , all questions answered. Meche An MD
[2019-04-04] MEDS ORDERED: Furosemide IV* 10 MG/ML VIAL (40 MG) IV SLOW PU ONE (11:05)
[2019-04-04] MEDS: Octreotide Acetate* 100 MCG/ML 1 ML VIAL SUBCUT SCH ×3 (11:18→19:56)
[2019-04-04] MEDS: Pantoprazole IV* 40 MG IV SCH ×2 (11:18→19:56)
[2019-04-04] MEDS: Allopurinol TAB* 100 MG PO SCH (13:02)
--- NOTE | 2019-04-04 13:02 | PN ---
Subjective Date of Service: 04/04/19 Interval History: Patient kelly had a relatively abrupt decline in mental status and was found to have decrease in hemoglobin. Today patient is able to open eyes and follow some basic commands, but is unable to articulate any words. Family History: Unchanged from Admission Social History: Unchanged from Admission Past Medical History: Unchanged from Admission Objective Active Medications: Allopurinol (Zyloprim Tab*) 100 mg PO DAILY [facility] Last Admin: 04/03/19 14:57 Dose: 100 mg Atorvastatin Calcium (Lipitor*) 40 mg PO 1700 [facility] Last Admin: 04/03/19 17:53 Dose: 40 mg Dextrose (D50w Syringe 50 Ml*) 12.5 gm IV PUSH .FOR FS < 60 - SS PRN PRN Reason: FS < 60 Ceftriaxone Sodium 1 gm/ (Sodium Chloride) 50 mls @ 100 mls/hr IVPB Q24H [facility] Last Admin: 04/04/19 10:13 Dose: 100 mls/hr Insulin Human Lispro (Humalog*) 0 units SUBCUT ACHS [facility]; Protocol Last Admin: 04/04/19 10:13 Dose: 3 units Lactulose (Lactulose 300 Ml For Pr*) 200 gm [place] QID [facility] Midodrine (Midodrine) 10 mg PO TID [facility]; Protocol Last Admin: 04/03/19 20:19 Dose: 10 mg Nystatin (Nystatin Cream*) 1 applic TOPICAL BID [facility] Last Admin: 04/03/19 20:24 Dose: 1 applic Octreotide Acetate (Octreotide Acetate*) 100 mcg SUBCUT TID [facility] Last Admin: 04/04/19 11:18 Dose: 100 mcg Oxycodone HCl (Roxycodone Tab*) 5 mg PO BID PRN PRN Reason: PAIN - MODERATE Pantoprazole Sodium (Protonix Iv*) 40 mg IV Q12H [facility] Last Admin: 04/04/19 11:18 Dose: 40 mg Rifaximin (Xifaxan*) 550 mg PO BID [facility] Spironolactone (Aldactone Tab*) 25 mg PO DAILY [facility] Vital Signs - 8 hr 04/04/19 04/04/19 04/04/19 05:02 07:00 07:06 Temperature 97.3 F 97.2 F 97.3 F Pulse Rate 57 54 52 Respiratory 16 16 17 Rate Blood Pressure 124/42 103/53 118/38 (mmHg) O2 Sat by Pulse 100 98 99 Oximetry 04/04/19 04/04/19 04/04/19 09:14 09:51 11:02 Temperature 97.4 F 97.4 F 97.2 F Pulse Rate 52 55 56 Respiratory 16 18 16 Rate Blood Pressure 111/52 130/57 132/66 (mmHg) O2 Sat by Pulse 100 100 100 Oximetry Oxygen Devices in Use Now: None Appearance: Patient is a 73yo female who appears older than stated age and is sitting in the bed in [facility]. Eyes: No Scleral Icterus, PERRLA Ears/Nose/Mouth/Throat: NL Teeth, Lips, Gums, Clear Oropharnyx, Mucous Membranes Moist Neck: NL Appearance and Movements; NL JVP, Trachea Midline Respiratory: Symmetrical Chest Expansion and Respiratory Effort, Clear to Auscultation Cardiovascular: NL Sounds; No Murmurs; No JVD, RRR, No Edema Abdominal: - - Hugely distended, erythematous skin changes. Otherwise limited exam. Extremities: No Clubbing, Cyanosis, - - 1+ B/L LE edema. Skin: No Rash or Ulcers, No Nodules or Sclerosis Neurological: - - Alert, Not oriented, no obvious focal deficits, Prominent asterixis. Result Diagrams: 04/04/19 05:12 04/04/19 05:12 Microbiology and Other Data: Microbiology 04/02/19 17:09 Stool Occult Blood (MALIHA) - Final Stool Assess/Plan/Problems-Billing Assessment: Patient is a 73yo female with a PMH for GODFREY/Cirrhosis, CKD, DM II, HTN, TIA, here with severe worsening in her renal function and anemia requiring transfusion and concern for HRS. - Patient Problems (1) Acute kidney injury Current Visit: No Status: Acute Priority: High Onset Date: 03/19/14 Code (s): N17.9 - ACUTE KIDNEY FAILURE, UNSPECIFIED SNOMED Code(s): 18646320 Comment: - Severe, Cret up to 4.5 - Unclear cause, Urine sodium low - Differential includes Prerenal, Fluid overload, or HRS - Nephrology consult appreciated, presumptive diagnosis of HRS - Continue Albumin and Octreotide, Started Midodrine - Hugely fluid overloaded - Start Lasix and Spironolactone. (2) Hepatic encephalopathy Current Visit: No Status: Acute Code(s): K72.90 - HEPATIC FAILURE, UNSPECIFIED WITHOUT COMA SNOMED Code(s): 96540197 Comment: - Likely worsened significantly overnight, possibly from worsening GI bleed. - No focal deficits to indicate CVA or other structural pathology. - Not taking lactulose or rifaximin by mouth, start lactulose [place] until mental state improves - Uremic or other Metabolic Encephalopathy unlikely. (3) Non-alcoholic cirrhosis Current Visit: No Status: Acute Comment: - Due to GODFREY with history of Thrombocytopenia, Varices without bleeding, HE - Albumin low and INR high - Continue Lactulose, albumin (4) Anemia Current Visit: No Status: Acute Code(s): D64.9 - ANEMIA, UNSPECIFIED SNOMED Code(s): 349550884 Comment: - Worsening again overnight - With stool occult blood positive - Oozing polyp on EGD without bleeding varix - S/P 4u PRBC, recheck in 2 hour - CKD or AOCD possibly contributing, not iron or vitamin deficient - PPI IV BID - Octreotide for possible HRS - Epo level last admission not appropriately elevated for level of anemia - Likely ongoing bleeding (5) Chronic pain syndrome Current Visit: No Status: Acute Code(s): G89.4 - CHRONIC PAIN SYNDROME SNOMED Code(s): 060110358 Comment: - Continue reduced dose oxycodone (6) Gastric varices Current Visit: No Status: Acute Code(s): I86.4 - GASTRIC VARICES SNOMED Code(s): 16134841 Comment: - Due to GODFREY/Cirrhosis - Not bleeding at this time - Resume Atenolol when BP improves for primary prophylaxis. (7) Peptic ulcer disease Current Visit: No Status: Acute Code(s): K27.9 - PEPTIC ULC, SITE UNSP, UNSP AC OR CHR, W/O HEMOR OR PERF SNOMED Code(s): 26289700 Comment: - BID IV PPI for now (8) TIA (transient ischemic attack) Current Visit: No Status: Acute Code(s): G45.9 - TRANSIENT CEREBRAL ISCHEMIC ATTACK, UNSPECIFIED SNOMED Code(s): 102105727 Comment: - History TIA - Continue Statin, hold ASA (9) Thrombocytopenia Current Visit: No Status: Acute Code(s): D69.6 - THROMBOCYTOPENIA, UNSPECIFIED SNOMED Code(s): 744234715 Comment: - Chronic and worsening likely due to consuption - Due to Cirrhosis (10) Diabetes mellitus Current Visit: No Status: Chronic Code(s): E11.9 - TYPE 2 DIABETES MELLITUS WITHOUT COMPLICATIONS SNOMED Code(s): 49029991 Comment: - SSI with lantus held while NPO (11) DVT prophylaxis Current Visit: No Status: Acute Priority: Medium Onset Date: 03/19/14 Code(s): IZE7237 - SNOMED Code(s): 885036645 Comment: - No chemical DVT prophylaxis in GI bleeding - SCDs (12) Full code status Current Visit: No Status: Acute Priority: Medium Onset Date: 03/19/14 Code(s): Z78.9 - OTHER SPECIFIED HEALTH STATUS SNOMED Code(s): 466904037 Comment: Status and Disposition: Inpatient for GI bleed.
[2019-04-04] MEDS: RiFAXimin* 550 MG TAB PO SCH ×2 (13:03→19:38)
[2019-04-04] MEDS: Spironolactone TAB* 25 MG PO SCH (13:03)
[2019-04-04 13:27] LABS: Hematocrit 25 % (35-47); Hemoglobin 8.2 g/dL (12.0-16.0); Mean Corpuscular HGB Conc 33 g/dL (31-36); Mean Corpuscular Hemoglobin 32 pg (27-31); Mean Corpuscular Volume 96 fL (80-97); Mean Platelet Volume 9.9 fL (7.4-10.4); Platelet Count 78 10^3/uL (150-450); Red Blood Count 2.57 10^6 /uL (3.70-4.87); Red Cell Distribution Width 21 % (10-15); White Blood Count 6.7 10^3/uL (3.5-10.8)
--- NOTE | 2019-04-04 13:28 | PN ---
Progress Note - Progress Note Date of Service: 04/04/19 Note: pt seen, examined, chart reviewed very encephalopathic, confused, minimal verbal answers dark stools, no brb Vs; 97.2, 132/66, 56 confused, can't follow commands +bs, softly distended WBC 5.9, hgb 6.4<----7.6 anemia EGD yesterday with PHG, GAVE, no eso varices, ?Gastric varices VS stable, melena no urgent need for repeat EGD, continue with IV ppi HSE lactulose enemas until clearing, then oral will follow HRS octreotide Ferdinand Smart MD
[2019-04-04 14:13] LABS: Polychromasia 1+
[2019-04-04 14:18] LABS: ABS Basophils 0.1 10^3/ul (0-0.2); ABS Eosinophils 0.6 10^3/ul (0-0.6); ABS Lymphocytes 1.4 10^3/ul (1.0-4.8); ABS Monocytes 0.8 10^3/ul (0-0.8); ABS Neutrophils 3.9 10^3/ul (1.5-7.7); Eosinophil % 8.7 %; Lymphocyte % 20.6 %; Nucleated Red Blood Cells % 0.3
[2019-04-04 14:28] LABS: Urine Appearance Clear; Urine Bilirubin Negative (Negative); Urine Blood 1+ (Negative); Urine Color Yellow; Urine Glucose Negative (Negative); Urine Ketones Negative (Negative); Urine Nitrite Negative (Negative); Urine Protein 1+(30 mg/dL) (Negative); Urine Specific Gravity 1.011 (1.010-1.030); Urine Urobilinogen Negative (Negative)
[2019-04-04 14:30] LABS: Urine Bacteria Absent (Absent); Urine Red Blood Cell 2+(6-10/hpf) (Absent); Urine White Blood Cell Trace(0-5/hpf) (Absent)
[2019-04-04] MEDS: Lactulose 300 ML for PR* 200 GM/300 ML BTL PR SCH ×2 (15:24→19:33)
[2019-04-04] MEDS: Nystatin CREAM* 15 GM TUBE TOPICAL SCH ×2 (17:04→20:05)
[2019-04-04] MEDS: Atorvastatin* 40 MG TAB PO SCH (17:08)
[2019-04-04 21:23] LABS: Hematocrit 23 % (35-47); Hemoglobin 7.6 g/dL (12.0-16.0)
[2019-04-05] MEDS: Lactulose 300 ML for PR* 200 GM/300 ML BTL PR SCH ×2 (00:07→11:59)
[2019-04-05] MEDS: Albumin Human 25%* 25 GM/100 ML BTL IV SCH ×2 (02:24→08:29)
[2019-04-05 05:07] LABS: ABS Basophils 0.1 10^3/ul (0-0.2); ABS Eosinophils 0.1 10^3/ul (0-0.6); ABS Lymphocytes 0.9 10^3/ul (1.0-4.8); ABS Monocytes 0.8 10^3/ul (0-0.8); ABS Neutrophils 6.4 10^3/ul (1.5-7.7); Eosinophil % 1.6 %; Hematocrit 23 % (35-47); Hemoglobin 7.7 g/dL (12.0-16.0); Lymphocyte % 11.1 %; Mean Corpuscular HGB Conc 34 g/dL (31-36); Mean Corpuscular Hemoglobin 33 pg (27-31); Mean Corpuscular Volume 97 fL (80-97); Mean Platelet Volume 8.5 fL (7.4-10.4); Nucleated Red Blood Cells % 0.2; Platelet Count 64 10^3/uL (150-450); Red Blood Count 2.37 10^6 /uL (3.70-4.87); Red Cell Distribution Width 21 % (10-15); White Blood Count 8.3 10^3/uL (3.5-10.8)
[2019-04-05 05:13] LABS: Albumin 3.5 g/dL (3.2-5.2); Albumin/Globulin Ratio 1.2 (1-3); Calcium 9.4 mg/dL (8.6-10.3); EGFR Non-African American 9.9 (>60); Magnesium 2.6 mg/dL (1.9-2.7); Potassium 4.6 mmol/L (3.5-5.0); Total Protein 6.5 g/dL (6.4-8.9)
[2019-04-05] MEDS: Insulin LISPRO* 1 UNITS UNIT SUBCUT SCH ×4 (07:40→22:16)
[2019-04-05] MEDS: cefTRIAXone(*) 1 GM in NS 0.9% 50 ML* 50 ML IVPB SCH (08:26)
[2019-04-05] MEDS: Allopurinol TAB* 100 MG PO SCH (08:41)
[2019-04-05] MEDS: Nystatin CREAM* 15 GM TUBE TOPICAL SCH ×2 (08:41→21:35)
[2019-04-05] MEDS: RiFAXimin* 550 MG TAB PO SCH ×2 (08:42→21:35)
[2019-04-05] MEDS: Spironolactone TAB* 25 MG PO SCH (08:42)
[2019-04-05 08:45] LABS: Indirect Bilirubin 2.2 mg/dL (0.3-1.0); Total Bilirubin 3.4 mg/dL (0.2-1.0)
[2019-04-05] MEDS: Octreotide Acetate* 100 MCG/ML 1 ML VIAL SUBCUT SCH ×3 (08:47→21:35)
[2019-04-05] MEDS: Pantoprazole IV* 40 MG IV SCH ×2 (08:48→20:52)
--- NOTE | 2019-04-05 10:24 | PN ---
Subjective Date of Service: 04/05/19 Interval History: Patient's mental status has deteriorated overnight to a further degree. Patient now only opens her eyes to sustained stimuli and makes eye-contact, but doesn't respond verbally. Patient withdraws from pain and attempted to resist NG tube placement. ROS otherwise unobtainable. Family History: Unchanged from Admission Social History: Unchanged from Admission Past Medical History: Unchanged from Admission Objective Active Medications: Allopurinol (Zyloprim Tab*) 100 mg PO DAILY [facility] Last Admin: 04/05/19 08:41 Dose: Not Given Atorvastatin Calcium (Lipitor*) 40 mg PO 1700 [facility] Last Admin: 04/04/19 17:08 Dose: Not Given Dextrose (D50w Syringe 50 Ml*) 12.5 gm IV PUSH .FOR FS < 60 - SS PRN PRN Reason: FS < 60 Ceftriaxone Sodium 1 gm/ (Sodium Chloride) 50 mls @ 100 mls/hr IVPB Q24H [facility] Last Admin: 04/05/19 08:26 Dose: 100 mls/hr Insulin Human Lispro (Humalog*) 0 units SUBCUT ACHS [facility]; Protocol Last Admin: 04/05/19 07:40 Dose: Not Given Lactulose (Lactulose 300 Ml For Pr*) 200 gm [place] QID [facility] Last Admin: 04/05/19 00:07 Dose: 200 gm Lactulose (Lactulose*) 30 ml NG TUBE TID [facility] Nystatin (Nystatin Cream*) 1 applic TOPICAL BID [facility] Last Admin: 04/05/19 08:41 Dose: 1 applic Octreotide Acetate (Octreotide Acetate*) 100 mcg SUBCUT TID [facility] Last Admin: 04/05/19 08:47 Dose: 100 mcg Oxycodone HCl (Roxycodone Tab*) 5 mg PO BID PRN PRN Reason: PAIN - MODERATE Pantoprazole Sodium (Protonix Iv*) 40 mg IV Q12H [facility] Last Admin: 04/05/19 08:48 Dose: 40 mg Rifaximin (Xifaxan*) 550 mg PO BID [facility] Last Admin: 04/05/19 08:42 Dose: Not Given Spironolactone (Aldactone Tab*) 25 mg PO DAILY [facility] Last Admin: 04/05/19 08:42 Dose: Not Given Vital Signs - 8 hr 02/08/20 02/08/20 02/08/20 02:30 02:50 07:15 Temperature 97.7 F 97.3 F 98.6 F Pulse Rate 60 58 67 Respiratory 20 18 20 Rate Blood Pressure 151/65 152/72 161/72 (mmHg) O2 Sat by Pulse 93 93 95 Oximetry 04/05/19 08:00 Temperature Pulse Rate Respiratory 20 Rate Blood Pressure (mmHg) O2 Sat by Pulse 95 Oximetry Oxygen Devices in Use Now: None Appearance: Patient is a 73yo female who appears older than stated age and is sitting in the bed in [facility]. Eyes: No Scleral Icterus, PERRLA Ears/Nose/Mouth/Throat: Mucous Membranes Moist, - - Blood in the posterior pharynx. Neck: NL Appearance and Movements; NL JVP, Trachea Midline Respiratory: Symmetrical Chest Expansion and Respiratory Effort, Clear to Auscultation, - - Tachypnea Cardiovascular: RRR, - - 2+ B/L LE edema, pulses 2+ in the B/L LE. Abdominal: NL Sounds; No Tenderness; No Distention, - - Super morbidly obese, Extremities: No Clubbing, Cyanosis Skin: No Nodules or Sclerosis, - - Ecchymosis widespread. Neurological: - - Lethargic and not oriented, opens eyes to sustained verbal stimuli, Marked asterexis. Result Diagrams: 04/05/19 04:50 04/05/19 04:50 Microbiology and Other Data: Microbiology 04/02/19 17:09 Stool Occult Blood (MALIHA) - Final Stool Assess/Plan/Problems-Billing Assessment: Patient is a 73yo female with a PMH for GODFREY/Cirrhosis, CKD, DM II, HTN, TIA, here with severe worsening in her renal function and anemia requiring transfusion and concern for HRS. - Patient Problems (1) Hepatic encephalopathy Current Visit: No Status: Acute Code(s): K72.90 - HEPATIC FAILURE, UNSPECIFIED WITHOUT COMA SNOMED Code(s): 47000997 Comment: - Severe, likely from worsening GI bleed. - No focal deficits to indicate CVA or other structural pathology, however, will order CT brain given lack of improvement - Not taking lactulose or rifaximin by mouth, started lactulose [place] without improvement - NG tube placed, start Lactulose and Xifaxin in NG tube - Uremic or other Metabolic Encephalopathy unlikely. - GCS 8, transfer to ICU for closer monitoring. (2) Acute kidney injury Current Visit: No Status: Acute Priority: High Onset Date: 03/19/14 Code (s): N17.9 - ACUTE KIDNEY FAILURE, UNSPECIFIED SNOMED Code(s): 14286949 Comment: - Severe, Cret up to 4.87 as a high, improved overnight - Unclear cause, Urine sodium low, but not undetectable and likely not interpretable. - Differential includes Prerenal, Fluid overload, or HRS - Nephrology consult appreciated, presumptive diagnosis of HRS - Continue Octreotide. Midodrine stopped for supine hypotension (even though she hasn't recieved this in last day) - Dose albumin to keep >3.5, hold dosing today. - Hugely fluid overloaded - Start Lasix and Spironolactone. Redose as able (3) Non-alcoholic cirrhosis Current Visit: No Status: Acute Comment: - Due to GODFREY with history of Thrombocytopenia, Varices without bleeding, HE, ascites - Albumin normal today and INR high - Continue Lactulose, albumin - Ceftriaxone for SBP prophylaxis with GI bleed. (4) Anemia Current Visit: No Status: Acute Code(s): D64.9 - ANEMIA, UNSPECIFIED SNOMED Code(s): 213304611 Comment: - Stable without transfusion overnight - With stool occult blood positive - Oozing polyp on EGD without bleeding varix - S/P 4u PRBC, recheck in 2 hour - CKD or AOCD possibly contributing, not iron or vitamin deficient - PPI IV BID - Octreotide for possible HRS - Epo level last admission not appropriately elevated for level of anemia - Likely ongoing bleeding (5) Chronic pain syndrome Current Visit: No Status: Acute Code(s): G89.4 - CHRONIC PAIN SYNDROME SNOMED Code(s): 644752501 Comment: - Continue reduced dose oxycodone (6) Gastric varices Current Visit: No Status: Acute Code(s): I86.4 - GASTRIC VARICES SNOMED Code(s): 96192837 Comment: - Due to GODFREY/Cirrhosis - Not bleeding at this time, smaller than January 2019 - Resume Atenolol when BP improves for primary prophylaxis. (7) Peptic ulcer disease Current Visit: No Status: Acute Code(s): K27.9 - PEPTIC ULC, SITE UNSP, UNSP AC OR CHR, W/O HEMOR OR PERF SNOMED Code(s): 73767758 Comment: - BID IV PPI for now (8) TIA (transient ischemic attack) Current Visit: No Status: Acute Code(s): G45.9 - TRANSIENT CEREBRAL ISCHEMIC ATTACK, UNSPECIFIED SNOMED Code(s): 354216572 Comment: - History TIA - Continue Statin, hold ASA (9) Thrombocytopenia Current Visit: No Status: Acute Code(s): D69.6 - THROMBOCYTOPENIA, UNSPECIFIED SNOMED Code(s): 260414811 Comment: - Chronic and worsening likely due to consumption - Due to Cirrhosis (10) Diabetes mellitus Current Visit: No Status: Chronic Code(s): E11.9 - TYPE 2 DIABETES MELLITUS WITHOUT COMPLICATIONS SNOMED Code(s): 95291500 Comment: - SSI with lantus held while NPO (11) DVT prophylaxis Current Visit: No Status: Acute Priority: Medium Onset Date: 03/19/14 Code(s): NEB3493 - SNOMED Code(s): 141157164 Comment: - No chemical DVT prophylaxis in GI bleeding - SCDs (12) Full code status Current Visit: No Status: Acute Priority: Medium Onset Date: 03/19/14 Code(s): Z78.9 - OTHER SPECIFIED HEALTH STATUS SNOMED Code(s): 622957797 Comment: Status and Disposition: Inpatient for GI bleed. Transfer to ICU
[2019-04-05] MEDS ORDERED: Albumin Human 25%* 25 GM/100 ML BTL IV SCH (11:00)
[2019-04-05] MEDS ORDERED: Furosemide IV* 10 MG/ML VIAL (40 MG) IV SLOW PU ONE (13:12)
[2019-04-05 13:17] LABS: ABS Eosinophils 0.1 10^3/ul (0-0.6); ABS Lymphocytes 0.9 10^3/ul (1.0-4.8); ABS Monocytes 0.8 10^3/ul (0-0.8); ABS Neutrophils 8.5 10^3/ul (1.5-7.7); Eosinophil % 0.5 %; Hematocrit 24 % (35-47); Hemoglobin 7.9 g/dL (12.0-16.0); Lymphocyte % 8.7 %; Mean Corpuscular HGB Conc 33 g/dL (31-36); Mean Corpuscular Hemoglobin 32 pg (27-31); Mean Corpuscular Volume 97 fL (80-97); Mean Platelet Volume 9.9 fL (7.4-10.4); Nucleated Red Blood Cells % 0.1; Platelet Count 72 10^3/uL (150-450); Red Blood Count 2.47 10^6 /uL (3.70-4.87); Red Cell Distribution Width 22 % (10-15); White Blood Count 10.3 10^3/uL (3.5-10.8)
--- NOTE | 2019-04-05 13:31 | CONSULT ---
Consult Consult: Consultation Note -- Critical Care Reason for consult: Unresponsive, elevated ammonia level Limitations in history/physical: Taken from hospitalist, chart and nursing since patient is unresponsive Date of consult: 04/05/19 HPI: [id number] with known medical history of GODFREY, TIA, HTN, DM, CKD, thrombocytopenia , gout, anemia, hyperammonemia presents on 04/02/19 after being sent to the ED by her carboy filler. Her labs were concerning for worsening kidney function and significant anemia. ED/floor Course: Patient's mental status has been progressively worsening to where she is unresponsive. Unable to give lactulose PO so have been attempting MA. ROS: ROS unable to be obtained secondary to intubated/sedated/unresponsive/ respiratory distress/dementia/mental status change PMHx: GODFREY, TIA, HTN, DM, CKD, thrombocytopenia, gout, anemia, hyperammonemia PSHx: tonsillectomy, growth removed from optic nerve Family History: Mother CT age 73, father CT age 70 and DM Social History: No alcohol, tobacco or drug use. Lives with Allergies: NKDA Home Medications: Allopurinol TAB* [Zyloprim 300 MG TAB*] 300 mg PO DAILY 01/01/19 [History Confirmed 04/02/19] Cannabidiol (CBD) Extract (NF) [Epidiolex (NF)] 1 applic TOPICAL DAILY 01/01/19 [History Confirmed 04/02/19] Aspirin EC TAB* [Ecotrin EC Low Dose 81 MG*] 81 mg PO DAILY tab.ec 01/03/19 [ Rx Confirmed 04/02/19] Atorvastatin* [Lipitor 40 MG*] 40 mg PO 1700 #30 tab 01/03/19 [Rx Confirmed 07/15] Insulin Glargine,Hum.rec.anlog [Lantus Solostar 100 units/ml 3 ml x 5 PENS] 15 units SUBCUT BID #0 01/03/19 [Rx Confirmed 04/02/19] Lactulose [Enulose] 30 ml PO TID #0 01/03/19 [Rx Confirmed 04/02/19] Lisinopril TAB* [Prinivil TAB 10 MG*] 20 mg PO DAILY #60 tab 01/03/19 [Rx Confirmed 04/02/19] Ferrous Gluconate TAB* [Fergon TAB*] 324 mg PO DAILY #30 tab 02/21/19 [Rx Confirmed 04/02/19] Atenolol TAB* [Tenormin TAB* 50 MG] 50 mg PO DAILY 04/02/19 [History Confirmed 04/02/19] Furosemide TAB* [Lasix TAB*] 20 - 40 mg PO DAILY 04/02/19 [History Confirmed 07/15] Nystatin CREAM* 1 applic TOPICAL BID 04/02/19 [History Confirmed 04/02/19] [place]-3 Fatty Acids (Nf) [Fish Oil (NF)] 1,000 mg PO DAILY 04/02/19 [History Confirmed 04/02/19] Omeprazole CAP (NF) [Prilosec CAP* 20 MG] 20 mg PO DAILY 04/02/19 [History Confirmed 04/02/19] oxyCODONE TAB* [Roxycodone TAB 5 mg*] 10 mg PO BID 04/02/19 [History Confirmed 04/02/19] Tele: Sinus rom into 40's Vitals: Vital Signs 04/04/19 04/04/19 04/04/19 15:33 15:43 16:00 Temperature 97.3 F 97.4 F Pulse Rate 53 58 Respiratory 16 20 Rate Blood Pressure 130/64 121/59 (mmHg) O2 Sat by Pulse 98 96 97 Oximetry 04/04/19 04/04/19 04/04/19 20:00 20:29 21:02 Temperature 97.1 F 96.9 F 96.7 F Pulse Rate 51 51 59 Respiratory 20 20 20 Rate Blood Pressure 139/55 144/61 148/73 (mmHg) O2 Sat by Pulse 97 100 99 Oximetry 04/04/19 04/05/19 04/05/19 23:15 02:30 02:50 Temperature 97.0 F 97.7 F 97.3 F Pulse Rate 51 60 58 Respiratory 18 20 18 Rate Blood Pressure 131/63 151/65 152/72 (mmHg) O2 Sat by Pulse 97 93 93 Oximetry 04/05/19 04/05/19 04/05/19 07:15 08:00 08:35 Temperature 98.6 F 98.6 F Pulse Rate 67 67 Respiratory 20 20 20 Rate Blood Pressure 161/72 161/72 (mmHg) O2 Sat by Pulse 95 95 95 Oximetry 04/05/19 04/05/19 04/05/19 08:50 09:30 11:17 Temperature 98.4 F 97.8 F 98.2 F Pulse Rate 68 58 64 Respiratory 20 20 21 Rate Blood Pressure 153/77 146/67 160/75 (mmHg) O2 Sat by Pulse 95 96 91 Oximetry O2: RA Infusions: None Current Medications: Allopurinol (Zyloprim Tab*) 100 mg PO DAILY [facility] Last Admin: 04/05/19 08:41 Dose: Not Given Dextrose (D50w Syringe 50 Ml*) 12.5 gm IV PUSH .FOR FS < 60 - SS PRN PRN Reason: FS < 60 Ceftriaxone Sodium 1 gm/ (Sodium Chloride) 50 mls @ 100 mls/hr IVPB Q24H [facility] Last Admin: 04/05/19 08:26 Dose: 100 mls/hr Insulin Human Lispro (Humalog*) 0 units SUBCUT ACHS [facility]; Protocol Last Admin: 04/05/19 13:24 Dose: 3 units Lactulose (Lactulose*) 30 ml NG TUBE TID [facility] Last Admin: 04/05/19 12:55 Dose: 30 ml Nystatin (Nystatin Cream*) 1 applic TOPICAL BID [facility] Last Admin: 04/05/19 08:41 Dose: 1 applic Octreotide Acetate (Octreotide Acetate*) 100 mcg SUBCUT TID [facility] Last Admin: 04/05/19 08:47 Dose: 100 mcg Pantoprazole Sodium (Protonix Iv*) 40 mg IV Q12H [facility] Last Admin: 04/05/19 08:48 Dose: 40 mg Rifaximin (Xifaxan*) 550 mg PO BID [facility] Last Admin: 04/05/19 08:42 Dose: Not Given Spironolactone (Aldactone Tab*) 25 mg PO DAILY [facility] Last Admin: 04/05/19 08:42 Dose: Not Given Physical Exam: Constitutional: unresponsive, no apparent distress. Head: normocephalic, atraumatic Eyes: no pallor, no icterus ENT: dry mucous membranes Neck: soft, supple CVS: bradycardia, S1S2, regular. No obvious murmur Chest/Resp: bilateral air entry, diminished LLL, no acc muscle use Abdomen/GI: morbidity, soft, pitting edema 2+ lower abdomen, chronic skin changes, BS present. Nondistended Ext/Msk: warm, pulses+, chronic skin changes BLE, BLE edema 2+ Skin: intact, warm Neuro: somnolent, doesnt not follow commands. Attempts to open eyes to noxious stimuli. Withdraws all extremities to noxious stimuli. Sensation appears to be intact. Currently protecting her airway Labs: Laboratory Results - last 24 hr 04/04/19 04/04/19 04/04/19 13:13 14:20 16:53 WBC 6.7 RBC 2.57 L Hgb 8.2 L Hct 25 L MCV 96 MCH 32 H MCHC 33 RDW 21 H Plt Count 78 L MPV 9.9 Neut % (Auto) 58.3 Lymph % (Auto) 20.6 [place] % (Auto) 11.6 Eos % (Auto) 8.7 Baso % (Auto) 0.8 Absolute Neuts (auto) 3.9 Absolute Lymphs (auto) 1.4 Absolute Monos (auto) 0.8 Absolute Eos (auto) 0.6 Absolute Basos (auto) 0.1 Absolute Nucleated RBC 0.0 Neutrophils % 56.0 Lymphocytes % 26.0 Monocytes % 10.0 Eosinophils % 8.0 Nucleated RBC % 0.3 Normal RBC Morphology Not Reportable Polychromasia 1+ Anisocytosis 2+ Elliptocytes 1+ ABG pH ABG pCO2 ABG pO2 ABG HCO3 ABG O2 Saturation ABG Base Excess Sodium Potassium Chloride Carbon Dioxide Anion Gap BUN Creatinine Est GFR ( Amer) Est GFR (Non-Af Amer) BUN/Creatinine Ratio Glucose POC Glucose (mg/dL) 162 H Calcium Magnesium Total Bilirubin Direct Bilirubin Indirect Bilirubin AST ALT Alkaline Phosphatase Ammonia Lactate Dehydrogenase Total Protein Albumin Globulin Albumin/Globulin Ratio Urine Color Yellow Urine Appearance Clear Urine pH 5.0 Ur Specific [place] 1.011 Urine Protein 1+(30 mg/dl) A Urine Ketones Negative Urine Blood 1+ A Urine Nitrate Negative Urine Bilirubin Negative Urine Urobilinogen Negative Ur Leukocyte Esterase Negative Urine WBC (Auto) Trace(0-5/hpf) Urine RBC (Auto) 2+(6-10/hpf) A Urine Bacteria Absent Hyaline Casts Present A Urine Glucose Negative 04/04/19 04/04/19 04/05/19 19:41 21:10 02:45 WBC RBC Hgb 7.6 L Hct 23 L MCV MCH MCHC RDW Plt Count MPV Neut % (Auto) Lymph % (Auto) [place] % (Auto) Eos % (Auto) Baso % (Auto) Absolute Neuts (auto) Absolute Lymphs (auto) Absolute Monos (auto) Absolute Eos (auto) Absolute Basos (auto) Absolute Nucleated RBC Neutrophils % Lymphocytes % Monocytes % Eosinophils % Nucleated RBC % Normal RBC Morphology Polychromasia Anisocytosis Elliptocytes ABG pH 7.37 ABG pCO2 26 L ABG pO2 68 L ABG HCO3 18.1 L ABG O2 Saturation 96.8 ABG Base Excess -8.6 L Sodium Potassium Chloride Carbon Dioxide Anion Gap BUN Creatinine Est GFR ( Amer) Est GFR (Non-Af Amer) BUN/Creatinine Ratio Glucose POC Glucose (mg/dL) 165 H Calcium Magnesium Total Bilirubin Direct Bilirubin Indirect Bilirubin AST ALT Alkaline Phosphatase Ammonia Lactate Dehydrogenase Total Protein Albumin Globulin Albumin/Globulin Ratio Urine Color Urine Appearance Urine pH Ur Specific [place] Urine Protein Urine Ketones Urine Blood Urine Nitrate Urine Bilirubin Urine Urobilinogen Ur Leukocyte Esterase Urine WBC (Auto) Urine RBC (Auto) Urine Bacteria Hyaline Casts Urine Glucose 04/05/19 04/05/19 04/05/19 04:50 04:50 04:50 WBC 8.3 RBC 2.37 L Hgb 7.7 L Hct 23 L MCV 97 MCH 33 H MCHC 34 RDW 21 H Plt Count 64 L MPV 8.5 Neut % (Auto) 76.7 Lymph % (Auto) 11.1 [place] % (Auto) 9.9 Eos % (Auto) 1.6 Baso % (Auto) 0.7 Absolute Neuts (auto) 6.4 Absolute Lymphs (auto) 0.9 L Absolute Monos (auto) 0.8 Absolute Eos (auto) 0.1 Absolute Basos (auto) 0.1 Absolute Nucleated RBC 0.0 Neutrophils % Lymphocytes % Monocytes % Eosinophils % Nucleated RBC % 0.2 Normal RBC Morphology Polychromasia Anisocytosis Elliptocytes ABG pH ABG pCO2 ABG pO2 ABG HCO3 ABG O2 Saturation ABG Base Excess Sodium 139 Potassium 4.6 Chloride 112 H Carbon Dioxide 18 L Anion Gap 9 BUN 61 H Creatinine 4.37 H Est GFR ( Amer) 12.0 Est GFR (Non-Af Amer) 9.9 BUN/Creatinine Ratio 14.0 Glucose 148 H POC Glucose (mg/dL) Calcium 9.4 Magnesium 2.6 Total Bilirubin 3.40 H D Direct Bilirubin 1.20 H Indirect Bilirubin 2.2 H AST 23 ALT 8 Alkaline Phosphatase 69 Ammonia 134 H Lactate Dehydrogenase Cancelled Total Protein 6.5 Albumin 3.5 Globulin 3.0 Albumin/Globulin Ratio 1.2 Urine Color Urine Appearance Urine pH Ur Specific [place] Urine Protein Urine Ketones Urine Blood Urine Nitrate Urine Bilirubin Urine Urobilinogen Ur Leukocyte Esterase Urine WBC (Auto) Urine RBC (Auto) Urine Bacteria Hyaline Casts Urine Glucose 04/05/19 04/05/19 04/05/19 07:28 07:30 12:53 WBC 10.3 RBC 2.47 L Hgb 7.9 L Hct 24 L MCV 97 MCH 32 H MCHC 33 RDW 22 H Plt Count 72 L MPV 9.9 Neut % (Auto) 83.0 Lymph % (Auto) 8.7 [place] % (Auto) 7.5 Eos % (Auto) 0.5 Baso % (Auto) 0.3 Absolute Neuts (auto) 8.5 H Absolute Lymphs (auto) 0.9 L Absolute Monos (auto) 0.8 Absolute Eos (auto) 0.1 Absolute Basos (auto) 0.0 Absolute Nucleated RBC 0.0 Neutrophils % Lymphocytes % Monocytes % Eosinophils % Nucleated RBC % 0.1 Normal RBC Morphology Polychromasia Anisocytosis Elliptocytes ABG pH ABG pCO2 ABG pO2 ABG HCO3 ABG O2 Saturation ABG Base Excess Sodium Potassium Chloride Carbon Dioxide Anion Gap BUN Creatinine Est GFR ( Amer) Est GFR (Non-Af Amer) BUN/Creatinine Ratio Glucose POC Glucose (mg/dL) 172 H Calcium Magnesium Total Bilirubin Direct Bilirubin Indirect Bilirubin AST ALT Alkaline Phosphatase Ammonia Lactate Dehydrogenase 196 Total Protein Albumin Globulin Albumin/Globulin Ratio Urine Color Urine Appearance Urine pH Ur Specific [place] Urine Protein Urine Ketones Urine Blood Urine Nitrate Urine Bilirubin Urine Urobilinogen Ur Leukocyte Esterase Urine WBC (Auto) Urine RBC (Auto) Urine Bacteria Hyaline Casts Urine Glucose Imaging: Chest xray 04/05: NG present in stomach, small bilateral pleural effusions CT brain 04/05: Limited study, no acute findings US renal/bladder 04/04: nondiagnostic d/t patient's body habitus Assessment: [id number] with known medical history of GODFREY, TIA, HTN, DM, CKD, thrombocytopenia, gout, anemia, hyperammonemia presents on 04/02/19 after being sent to the ED by her carboy filler. Her labs were concerning for worsening kidney function and significant anemia. Admitted to ICU with worsening neuro exam, LEONILA, melana, possible hepatorenal syndrome, Plan: Neuro- - Hepatic encephalopathy: acute on chronic. Worsening, likely d/t increased ammonia level - Continue lactulose 30ml TID. Recheck ammonia in AM -Delirium prec; avoid BDZ and narcotics CVS- -HTN: chronic. BP currently controlled. Holding home medications -Maintain MAP>65 Resp- - Currently protecting airway. Appears to have some slight increased work of breathing. Will be diuresing more today -On RA - Encourage Pulmonary Toilet ID- - Currently being treated prophylactically with ceftriaxone for SBP GI- - GODFREY: chronic - continue lactulose 30ml TID - Monitor coags and treat as necessary -Nutrition: NPO while unresponsive. -GI prophylaxis: protonix Renal- - Most likely hepatorenal syndrome. Unable to obtain good images from US renal/ bladder - Nephrology on board. They are recommending lasix 100mg BID. Will monitor UOP and kidney function -strict I/O, replete to keep K>4, Mg>2 -continue pollard Heme- - Anemia: acute on chronic. Having some minor blood loss via stool. Stool remains brown in color but did test stool occult positive. Monitor CBC - Goal hgb>7 Endo- -DM: chronic -Maintain BG<200 - Adjusted insulin sliding scale now that she is NPO Musculsk- pressure ulcer prophylaxis. Bedrest. Wounds- chronic skin changes abdomen and BLE Nutrition- NPO DVT prophylaxis:SCDs GI prophylaxis: protonix Pollard Catheter: continue Disposition: Admit to ICU; Expected LOS>2 midnights; Patient requires Critical Care/ICU for worsening mental status, hepatic encephalopathy, fluid overload, hyperammonemia Patient Clinical Status: critical Code Status: full Total Critical Care time is 45 minutes
--- NOTE | 2019-04-05 14:52 | PN ---
Progress Note - Progress Note Date of Service: 04/05/19 Note: cc: LEONILA on CKD HPI: Mrs. Dirk Hankins is a 73 yo supra morbidly obese women admitted for severe anemia due to GI bleed , in the context of cirrhosis , probably due to GODFREY. her mental status worsened over night and was transferred to ICU. patient responds occasionally by opening her eyes but is not aware of her surroundings. at bedside. per chart review , she was unable to take lactulose yesterday and as a result her hepatic encephalopathy has worsened. Ammonia level increased compared to yesterday. she had good response to lasix yesterday. [place] was placed for strict I&O's. ROS: unable to obtain, patient non conversational due to severe hepatic encephlopathy PMH: unchanged Physical exam: Temp Pulse Resp BP SpO2 FiO2 98.2 F 64 21 160/75 91 04/05/19 11:17 04/05/19 11:17 04/05/19 11:17 04/05/19 11:17 04/05/19 11:17 Const: difficult to arouse. NGT in place containing some bloody streaks. pale and maybe slightly jaundiced, dry oral membranes ( mouth breather ) Heart: S1, S2 , rrr, no MRG, +3 pitting Le edema Chest: cta anteriorly. central line in the right upper chest, covered with bloody dressing. Abdomen: supra obese, difficult to examine Psych: lethargic, unable to arouse Medications: Allopurinol (Zyloprim Tab*) 100 mg PO DAILY [facility] Last Admin: 04/05/19 08:41 Dose: Not Given Dextrose (D50w Syringe 50 Ml*) 12.5 gm IV PUSH .FOR FS < 60 - SS PRN PRN Reason: FS < 60 Ceftriaxone Sodium 1 gm/ (Sodium Chloride) 50 mls @ 100 mls/hr IVPB Q24H [facility] Last Admin: 04/05/19 08:26 Dose: 100 mls/hr Insulin Human Lispro (Humalog*) 0 units SUBCUT ACHS [facility]; Protocol Last Admin: 04/05/19 13:24 Dose: 3 units Lactulose (Lactulose*) 30 ml NG TUBE TID [facility] Last Admin: 04/05/19 12:55 Dose: 30 ml Nystatin (Nystatin Cream*) 1 applic TOPICAL BID [facility] Last Admin: 04/05/19 08:41 Dose: 1 applic Octreotide Acetate (Octreotide Acetate*) 100 mcg SUBCUT TID [facility] Last Admin: 04/05/19 08:47 Dose: 100 mcg Pantoprazole Sodium (Protonix Iv*) 40 mg IV Q12H [facility] Last Admin: 04/05/19 08:48 Dose: 40 mg Rifaximin (Xifaxan*) 550 mg PO BID [facility] Last Admin: 04/05/19 08:42 Dose: Not Given Spironolactone (Aldactone Tab*) 25 mg PO DAILY [facility] Last Admin: 04/05/19 08:42 Dose: Not Given Labs: Laboratory Last Values WBC 10.3 10^3/uL (3.5-10.8) 04/05/19 12:53 RBC 2.47 10^6 /uL (3.70-4.87) L 04/05/19 12:53 Hgb 7.9 g/dL (12.0-16.0) L 04/05/19 12:53 Hct 24 % (35-47) L 04/05/19 12:53 MCV 97 fL (80-97) 04/05/19 12:53 MCH 32 pg (27-31) H 04/05/19 12:53 MCHC 33 g/dL (31-36) 04/05/19 12:53 RDW 22 % (10-15) H 04/05/19 12:53 Plt Count 72 10^3/uL (150-450) L 04/05/19 12:53 MPV 9.9 fL (7.4-10.4) 04/05/19 12:53 Neut % (Auto) 83.0 % 04/05/19 12:53 Lymph % (Auto) 8.7 % 04/05/19 12:53 [place] % (Auto) 7.5 % 04/05/19 12:53 Eos % (Auto) 0.5 % 04/05/19 12:53 Baso % (Auto) 0.3 % 04/05/19 12:53 Absolute Neuts (auto) 8.5 10^3/ul (1.5-7.7) H 04/05/19 12:53 Absolute Lymphs (auto) 0.9 10^3/ul (1.0-4.8) L 04/05/19 12:53 Absolute Monos (auto) 0.8 10^3/ul (0-0.8) 04/05/19 12:53 Absolute Eos (auto) 0.1 10^3/ul (0-0.6) 04/05/19 12:53 Absolute Basos (auto) 0.0 10^3/ul (0-0.2) 04/05/19 12:53 Absolute Nucleated RBC 0.0 10^3/ul 04/05/19 12:53 Neutrophils % 56.0 % 04/04/19 13:13 Lymphocytes % 26.0 % 04/04/19 13:13 Monocytes % 10.0 % 04/04/19 13:13 Eosinophils % 8.0 % 04/04/19 13:13 Basophils % 1.0 % 04/02/19 13:39 Nucleated RBC % 0.1 04/05/19 12:53 Normal RBC Morphology Not Reportable 04/04/19 13:13 Polychromasia 1+ 04/04/19 13:13 Hypochromasia 1+ 04/03/19 06:20 Anisocytosis 2+ 04/04/19 13:13 Elliptocytes 1+ 04/04/19 13:13 Hem Pathologist Commnt 04/02/19 13:39 INR (Anticoag Therapy) 1.31 (0.82-1.09) H 04/03/19 06:20 ABG pH 7.37 (7.35-7.45) 04/05/19 02:45 ABG pCO2 26 mmHg (35-45) L 04/05/19 02:45 ABG pO2 68 mmHg (80-100) L 04/05/19 02:45 ABG HCO3 18.1 mmol/L (19-31) L 04/05/19 02:45 ABG O2 Saturation 96.8 % (94.0-98.0) 04/05/19 02:45 ABG Base Excess -8.6 mmol/L (-2.0-2.0) L 04/05/19 02:45 Sodium 139 mmol/L (135-145) 04/05/19 04:50 Potassium 4.6 mmol/L (3.5-5.0) 04/05/19 04:50 Chloride 112 mmol/L (101-111) H 04/05/19 04:50 Carbon Dioxide 18 mmol/L (22-32) L 04/05/19 04:50 Anion Gap 9 mmol/L (2-11) 04/05/19 04:50 BUN 61 mg/dL (6-24) H 04/05/19 04:50 Creatinine 4.37 mg/dL (0.51-0.95) H 04/05/19 04:50 Est GFR ( Amer) 12.0 (>60) 04/05/19 04:50 Est GFR (Non-Af Amer) 9.9 (>60) 04/05/19 04:50 BUN/Creatinine Ratio 14.0 (8-20) 04/05/19 04:50 Glucose 148 mg/dL (70-100) H 04/05/19 04:50 POC Glucose (mg/dL) 172 mg/dL (70-100) H 04/05/19 07:28 Calcium 9.4 mg/dL (8.6-10.3) 04/05/19 04:50 Magnesium 2.6 mg/dL (1.9-2.7) 04/05/19 04:50 Iron 66 ug/dL (50-212) 04/02/19 13:39 TIBC 234 mcg/dL (250-450) L 04/02/19 13:39 % Saturation 28 % (15-55) 04/02/19 13:39 Unsat Iron Binding < 219 ug/dL 04/02/19 13:39 Transferrin 167 mg/dL (203-362) L 04/02/19 13:39 Ferritin 120.7 ng/mL (11-307) 04/02/19 13:39 Total Bilirubin 3.40 mg/dL (0.2-1.0) H D 04/05/19 04:50 Direct Bilirubin 1.20 mg/dL (0.03-0.18) H 04/05/19 04:50 Indirect Bilirubin 2.2 mg/dL (0.3-1.0) H 04/05/19 04:50 AST 23 U/L (13-39) 04/05/19 04:50 ALT 8 U/L (7-52) 04/05/19 04:50 Alkaline Phosphatase 69 U/L (34-104) 04/05/19 04:50 Ammonia 134 mcmol/L (16-53) H 04/05/19 04:50 Lactate Dehydrogenase 196 U/L (140-271) 04/05/19 07:30 Total Protein 6.5 g/dL (6.4-8.9) 04/05/19 04:50 Albumin 3.5 g/dL (3.2-5.2) 04/05/19 04:50 Globulin 3.0 g/dL (2-4) 04/05/19 04:50 Albumin/Globulin Ratio 1.2 (1-3) 04/05/19 04:50 Vitamin B12 > 1450 pg/mL (180-914) H 04/02/19 13:39 Folate 8.04 ng/mL (>3.99) 04/02/19 13:39 Urine Color Yellow 04/04/19 14:20 Urine Appearance Clear 04/04/19 14:20 Urine pH 5.0 (5-9) 04/04/19 14:20 Ur Specific [place] 1.011 (1.010-1.030) 04/04/19 14:20 Urine Protein 1+(30 mg/dl) (Negative) A 04/04/19 14:20 Urine Ketones Negative (Negative) 04/04/19 14:20 Urine Blood 1+ (Negative) A 04/04/19 14:20 Urine Nitrate Negative (Negative) 04/04/19 14:20 Urine Bilirubin Negative (Negative) 04/04/19 14:20 Urine Urobilinogen Negative (Negative) 04/04/19 14:20 Ur Leukocyte Esterase Negative (Negative) 04/04/19 14:20 Urine WBC (Auto) Trace(0-5/hpf) (Absent) 04/04/19 14:20 Urine RBC (Auto) 2+(6-10/hpf) (Absent) A 04/04/19 14:20 Urine Bacteria Absent (Absent) 04/04/19 14:20 Hyaline Casts Present (Absent) A 04/04/19 14:20 U Sodium Concentration 23 mmol/L 04/03/19 20:45 Urine Glucose Negative (Negative) 04/04/19 14:20 Blood Type A Positive 04/02/19 13:39 Antibody Screen Negative 04/02/19 13:39 Crossmatch See Detail 04/02/19 13:39 Assessment and Plan: Bonnie is a 75 yo woman with impressive medical history including supra morbid obesity, cirrhosis due to GODFREY, complicated with portal hypertension and gastric varices, without signs of active bleeding per EGD done 04/03/2019, admitted for severe anemia and worsening kidney function. 1. LEONILA due to HRS vs ATN. HRS encompasses a spectrum of renal tubular ischemic changes that can culminate with ATN. BP is now much improved and I would have expected her creatinine to improve more than it did if this was uncomplicated, prerenal LEONILA due HRS. Her clinical course suggests that her prolonged prerenal HRS is now complicated with ATN. She has responded very well to lasix 100 mg iv , and this implies that her tubular function is not severely, or terminally damaged , and we may expect to see some improvement in her kidney function , back to baseline creatinine of 2.5 mg/dl or somewhere in between 2.5 and 4.5 mg/ dl. Recommend conservative management with maintenance of BP and avoidance of nephrotoxins. adjust meds for GFR < 10 ml/min 2. Volume overload - improved - continue Furosemide 100 mg iv push over 30 min , twice a day - continue spironolactone 25 mg daily, increase to 50 mg daily if her course is complicated with hypokalemia - strict I/Os - continue limit salt intake 3. CKD stage IV, most probably due to incomplete recovery of LEONILA and some background of HRS 4. Encephalopathy - worsened since yesterday. CT scan of the brain was negative for acute changes. serum creatinine is getting little better, BUN only 60 , but ammonia level almost doubled, which is consistent with worsening hepatic encephalopathy. - treatment of hepatic encephalopathy per primary team. - from the renal perspective , please avoid hypokalemia , which will increase ammonia generation and worsen the encephalopathy. 5. Metabolic acidosis ( non anion gap due to leonila on ckd) ) - ( with some respiratory alkalosis ) metab acidosis may improve with diuresis . if it worsens the best would be to get sodium bicarbonate 650 mg per NGT bid. high doses of sodium bicarbonate most likely will be complicated with hypokalemia which needs to be avoided. nothing to do now as her ph is in normal range. 6. Anemia due to ongoing GI bleed. - per ICU team. Meche An MD
[2019-04-05 15:34] LABS: INR 1.59 (0.82-1.09)
--- NOTE | 2019-04-05 18:06 | PN ---
Progress Note - Progress Note Date of Service: 04/05/19 Note: pt seen in ICU around 1 pm events noted, lactulose per NG now, worsending enceph VS; afebrile, 97.8, 164/75, 63 nad opens eyes to command, disoriented obese, +bs, +asterixis plts 72, hgb 7.9 HSE-->agree with NG and lactulose anemia--->will need colonoscopy at some point, will follow Kennedi Smart MD
[2019-04-05] MEDS: hydrALAZINE IV* 20 MG/ML VIAL IV SLOW PU PRN (19:36)
[2019-04-05] MEDS: Furosemide IV* 10 MG/ML VIAL (40 MG) IV SLOW PU SCH (20:51)
[2019-04-06] MEDS ORDERED: Ondansetron INJ* 2 MG/ML VIAL IV PRN (01:00)
[2019-04-06] MEDS: hydrALAZINE IV* 20 MG/ML VIAL IV SLOW PU PRN ×2 (03:21→09:43)
[2019-04-06 04:02] LABS: Hematocrit 24 % (35-47); Hemoglobin 8.2 g/dL (12.0-16.0); Mean Corpuscular HGB Conc 34 g/dL (31-36); Mean Corpuscular Hemoglobin 33 pg (27-31); Mean Corpuscular Volume 98 fL (80-97); Mean Platelet Volume 9.5 fL (7.4-10.4); Platelet Count 82 10^3/uL (150-450); Red Cell Distribution Width 21 % (10-15)
[2019-04-06 04:17] LABS: Albumin 3.6 g/dL (3.2-5.2); Albumin/Globulin Ratio 1.1 (1-3); BUN/Creatinine Ratio 15.2 (8-20); Calcium 9.6 mg/dL (8.6-10.3); EGFR African American 12.9 (>60); EGFR Non-African American 10.7 (>60); Globulin 3.3 g/dL (2-4); Potassium 4.5 mmol/L (3.5-5.0); Total Bilirubin 3.9 mg/dL (0.2-1.0); Total Protein 6.9 g/dL (6.4-8.9)
[2019-04-06] MEDS: cefTRIAXone(*) 1 GM in NS 0.9% 50 ML* 50 ML IVPB SCH (08:44)
[2019-04-06] MEDS: Insulin LISPRO* 1 UNITS UNIT SUBCUT SCH ×4 (09:10→22:24)
[2019-04-06] MEDS: Furosemide IV* 10 MG/ML VIAL (40 MG) IV SLOW PU SCH ×2 (09:23→22:21)
[2019-04-06] MEDS: Pantoprazole IV* 40 MG IV SCH ×2 (09:33→22:27)
[2019-04-06] MEDS: Nystatin CREAM* 15 GM TUBE TOPICAL SCH ×3 (10:44→22:27)
[2019-04-06] MEDS: Allopurinol TAB* 100 MG PO SCH (11:19)
[2019-04-06] MEDS: Spironolactone TAB* 25 MG PO SCH (11:20)
[2019-04-06] MEDS: RiFAXimin* 550 MG TAB PO SCH ×2 (11:20→22:27)
--- NOTE | 2019-04-06 11:29 | PN ---
Progress Note - Progress Note Date of Service: 04/06/19 Note: pt seen and examined; sl more awake today, will open eyes to command, but then back off brain CT wnl, lactulose via NGT VS; 97.9, 142/67, 59 nad, enceph, follows min commands +bs, massive obesity, nt bili 3.9<---3.4, cr 4.09, hgb 8.2, wbc 11 HSE-->continue lactulose, starting to clear anemia--->stable will follow Ferdinand Martin MD
[2019-04-06] MEDS: Octreotide Acetate* 100 MCG/ML 1 ML VIAL SUBCUT SCH ×3 (11:56→22:23)
--- NOTE | 2019-04-06 12:27 | PN ---
Progress Note - Progress Note Date of Service: 04/06/19 Note: Progress Note -- Critical Care 24 hour events/significant events: - Patient was transferred to ICU for worsening mental status and elevated ammonia levels - Diuresing well and kidney function is slowly improving ROS: ROS unable to be obtained secondary to altered mental status Tele: sinus Vitals: Vital Signs 04/05/19 04/05/19 04/05/19 12:46 13:00 13:01 Temperature Pulse Rate 48 56 52 Respiratory 16 19 17 Rate Blood Pressure 142/64 159/71 (mmHg) O2 Sat by Pulse 96 92 92 Oximetry 04/05/19 04/05/19 04/05/19 13:16 13:31 14:00 Temperature Pulse Rate 47 54 50 Respiratory 16 18 16 Rate Blood Pressure 143/59 172/75 (mmHg) O2 Sat by Pulse 95 93 95 Oximetry 04/05/19 04/05/19 04/05/19 14:01 15:00 15:01 Temperature Pulse Rate 48 66 63 Respiratory 16 22 20 Rate Blood Pressure 136/67 162/75 (mmHg) O2 Sat by Pulse 95 94 94 Oximetry 04/05/19 04/05/19 04/05/19 16:00 17:00 17:04 Temperature 97.8 F Pulse Rate 65 64 63 Respiratory 21 21 19 Rate Blood Pressure 158/80 170/74 164/75 (mmHg) O2 Sat by Pulse 93 95 95 Oximetry 04/05/19 04/05/19 04/05/19 17:47 18:00 19:00 Temperature Pulse Rate 69 70 Respiratory 24 26 25 Rate Blood Pressure (mmHg) O2 Sat by Pulse 94 93 Oximetry 04/05/19 04/05/19 04/05/19 19:01 19:04 20:00 Temperature 98.9 F Pulse Rate 67 70 Respiratory 25 25 25 Rate Blood Pressure 170/80 (mmHg) O2 Sat by Pulse 93 95 Oximetry 04/05/19 04/05/19 04/05/19 20:01 21:00 22:00 Temperature Pulse Rate 67 66 67 Respiratory 21 24 22 Rate Blood Pressure 171/72 158/79 166/88 (mmHg) O2 Sat by Pulse 95 96 94 Oximetry 04/05/19 04/05/19 04/06/19 23:00 23:14 00:00 Temperature 98.6 F Pulse Rate 74 71 70 Respiratory 29 26 26 Rate Blood Pressure 159/83 157/72 (mmHg) O2 Sat by Pulse 94 94 94 Oximetry 04/06/19 04/06/19 04/06/19 01:00 02:00 02:01 Temperature Pulse Rate 70 73 75 Respiratory 32 27 27 Rate Blood Pressure 163/97 156/77 (mmHg) O2 Sat by Pulse 94 93 93 Oximetry 04/06/19 04/06/19 04/06/19 03:00 04:00 04:01 Temperature 98.3 F Pulse Rate 77 77 77 Respiratory 28 29 27 Rate Blood Pressure 175/88 160/89 (mmHg) O2 Sat by Pulse 93 93 94 Oximetry 04/06/19 04/06/19 04/06/19 04:48 04:53 05:00 Temperature Pulse Rate 72 Respiratory 28 28 Rate Blood Pressure 168/79 (mmHg) O2 Sat by Pulse 93 94 Oximetry 04/06/19 04/06/19 04/06/19 06:00 06:39 07:00 Temperature Pulse Rate 74 59 60 Respiratory 27 22 21 Rate Blood Pressure 168/89 142/67 141/66 (mmHg) O2 Sat by Pulse 94 94 94 Oximetry 04/06/19 04/06/19 04/06/19 07:58 08:00 08:01 Temperature 97.9 F Pulse Rate 67 68 Respiratory 26 26 Rate Blood Pressure 167/85 (mmHg) O2 Sat by Pulse 93 93 Oximetry 04/06/19 04/06/19 04/06/19 09:00 09:01 10:00 Temperature Pulse Rate 67 67 67 Respiratory 25 23 27 Rate Blood Pressure 174/77 (mmHg) O2 Sat by Pulse 96 96 97 Oximetry 04/06/19 04/06/19 04/06/19 10:01 11:00 12:00 Temperature Pulse Rate 68 71 69 Respiratory 26 31 27 Rate Blood Pressure 163/73 158/74 169/80 (mmHg) O2 Sat by Pulse 97 96 96 Oximetry Intake and Output Last 24 Hours 04/04/19 04/05/19 04/06/19 04/07/19 06:59 06:59 06:59 06:59 Intake Total 1890 1006 145 Output Total 2800 3325 5402 920 Balance -910 -2319 -5280 -920 Weight 352 lb 9.6 oz Intake: IV Fluids 550 901 Albumin 300 314 NS 250 blood 587 Oral 840 0 0 Packed Cells 500 Albumin 105 105 NG Tube Irrigate Amount 40 Output: Urine 1400 825 Pollard 2375 4400 920 Liquid Stool 1400 950 200 Emesis 0 Other: Estimated Void Medium Date of Last Bowel [id number] 04/06/19 Movement # Bowel Movements 0 0 1 Estimated Stool Amount Large Medium Other Amount Description 0 # Voids 1 O2/Vent: NC Infusions: None Medications: Allopurinol (Zyloprim Tab*) 100 mg PO DAILY [facility] Last Admin: 04/06/19 11:19 Dose: Not Given Dextrose (D50w Syringe 50 Ml*) 12.5 gm IV PUSH .FOR FS < 60 - SS PRN PRN Reason: FS < 60 Furosemide (Lasix Iv*) 100 mg IV SLOW PU Q12H [facility] Last Admin: 04/06/19 09:23 Dose: 100 mg Hydralazine HCl (Apresoline Iv*) 5 mg IV SLOW PU Q6H PRN PRN Reason: SBP>170 Last Admin: 04/06/19 09:43 Dose: 5 mg Ceftriaxone Sodium 1 gm/ (Sodium Chloride) 50 mls @ 100 mls/hr IVPB Q24H [facility] Last Admin: 04/06/19 08:44 Dose: 100 mls/hr Insulin Human Lispro (Humalog*) 0 units SUBCUT ACHS [facility]; Protocol Last Admin: 04/06/19 09:10 Dose: 2 units Lactulose (Lactulose*) 30 ml NG TUBE TID [facility] Last Admin: 04/06/19 10:52 Dose: 30 ml Nystatin (Nystatin Cream*) 1 applic TOPICAL BID [facility] Last Admin: 04/05/19 21:35 Dose: 1 applic Octreotide Acetate (Octreotide Acetate*) 100 mcg SUBCUT TID [facility] Last Admin: 04/06/19 11:56 Dose: 100 mcg Ondansetron HCl (Zofran Inj*) 4 mg IV Q6H PRN PRN Reason: NAUSEA Pantoprazole Sodium (Protonix Iv*) 40 mg IV Q12H [facility] Last Admin: 04/06/19 09:33 Dose: 40 mg Rifaximin (Xifaxan*) 550 mg PO BID [facility] Last Admin: 04/06/19 11:20 Dose: Not Given Spironolactone (Aldactone Tab*) 25 mg PO DAILY [facility] Last Admin: 04/06/19 11:20 Dose: Not Given Physical Exam: Constitutional: lethargic but opens eyes spontaneously, no distress, no diaphoresis Head: normocephalic, atraumatic Eyes: no pallor, no icterus ENT: dry mucous membranes Neck: soft, supple CVS: normal rate, regular, no murmur Chest/Resp: bilateral air entry, no rhales, no wheeze, no rhonchi, no acc muscle use Abdomen/GI: morbid obesity, nontender, pitting edema 2+ lower abdomen, chronic skin changes, nondistended, BS+ Ext/Msk: warm, pulses+, chronic skin changes and pitting edema 2+ BLE, nonpitting edema BUE Skin: intact, warm Neuro: lethargic, opens eyes spontaneously, follows some commands, unable to answer orientation questions, moving all extremities, no gross focal deficit Psych: normal affect Labs: Laboratory Results - last 24 hr 04/05/19 04/05/19 04/05/19 12:53 15:17 16:53 WBC 10.3 RBC 2.47 L Hgb 7.9 L Hct 24 L MCV 97 MCH 32 H MCHC 33 RDW 22 H Plt Count 72 L MPV 9.9 Neut % (Auto) 83.0 Lymph % (Auto) 8.7 [place] % (Auto) 7.5 Eos % (Auto) 0.5 Baso % (Auto) 0.3 Absolute Neuts (auto) 8.5 H Absolute Lymphs (auto) 0.9 L Absolute Monos (auto) 0.8 Absolute Eos (auto) 0.1 Absolute Basos (auto) 0.0 Absolute Nucleated RBC 0.0 Nucleated RBC % 0.1 INR (Anticoag Therapy) 1.59 H Sodium Potassium Chloride Carbon Dioxide Anion Gap BUN Creatinine Est GFR ( Amer) Est GFR (Non-Af Amer) BUN/Creatinine Ratio Glucose POC Glucose (mg/dL) 179 H Calcium Total Bilirubin AST ALT Alkaline Phosphatase Ammonia Total Protein Albumin Globulin Albumin/Globulin Ratio 04/05/19 04/06/19 04/06/19 21:59 03:58 03:58 WBC 11.0 H RBC 2.50 L Hgb 8.2 L Hct 24 L MCV 98 H MCH 33 H MCHC 34 RDW 21 H Plt Count 82 L MPV 9.5 Neut % (Auto) Lymph % (Auto) [place] % (Auto) Eos % (Auto) Baso % (Auto) Absolute Neuts (auto) Absolute Lymphs (auto) Absolute Monos (auto) Absolute Eos (auto) Absolute Basos (auto) Absolute Nucleated RBC Nucleated RBC % INR (Anticoag Therapy) Sodium Potassium Chloride Carbon Dioxide Anion Gap BUN Creatinine Est GFR ( Amer) Est GFR (Non-Af Amer) BUN/Creatinine Ratio Glucose POC Glucose (mg/dL) 201 H Calcium Total Bilirubin AST ALT Alkaline Phosphatase Ammonia 121 H Total Protein Albumin Globulin Albumin/Globulin Ratio 04/06/19 03:58 WBC RBC Hgb Hct MCV MCH MCHC RDW Plt Count MPV Neut % (Auto) Lymph % (Auto) [place] % (Auto) Eos % (Auto) Baso % (Auto) Absolute Neuts (auto) Absolute Lymphs (auto) Absolute Monos (auto) Absolute Eos (auto) Absolute Basos (auto) Absolute Nucleated RBC Nucleated RBC % INR (Anticoag Therapy) Sodium 142 Potassium 4.5 Chloride 113 H Carbon Dioxide 16 L Anion Gap 13 H BUN 62 H Creatinine 4.09 H Est GFR ( Amer) 12.9 Est GFR (Non-Af Amer) 10.7 BUN/Creatinine Ratio 15.2 Glucose 155 H POC Glucose (mg/dL) Calcium 9.6 Total Bilirubin 3.90 H AST 31 ALT 10 Alkaline Phosphatase 75 Ammonia Total Protein 6.9 Albumin 3.6 Globulin 3.3 Albumin/Globulin Ratio 1.1 Imaging: Chest xray 04/05: small bilateral pleural effusions CTH 04/05: neg for acute changes Assessment: 73F with known medical history of GODFREY, TIA, HTN, DM, CKD, thrombocytopenia, gout, anemia, hyperammonemia presents on 04/02/19 after being sent to the ED by her visual designer. Her labs were concerning for worsening kidney function and significant anemia. Admitted to ICU with worsening neuro exam, LEONILA, melana, possible hepatorenal syndrome. 04/06: Mental status slowly improving. - Hepatic encephalopathy - Hyperammonenia - HTN - GODFREY - Likely hepatorenal syndrome Plan: Neuro- - Encephalopathy- hepatic. Improving mental status this morning - Continue lactulose. No need to recheck ammonia level -Delirium prec; avoid BDZ CVS- - HTN: chronic. Will continue with aggressive diuresis as long as BP can tolerate -Maintain MAP>65 Resp- -Wean Fio2 to keep sat>92% -Aspiration prec, Pulmonary Toilet ID- - Currently being treated prophylactically with ceftriaxone for SBP GI- -Nutrition: NPO. If patient does not continue to make progress with her neuro exam, will need to consider alternative feeding source -GI prophylaxis- protonix - GODFREY- chronic. Continue lactulose 30ml TID - Continue ocreotide subq - Palliative consult for goals of care Renal- - Likely hepatorenal syndrome. Continue aggressive diuresis with lasix 100mg BID -strict I/O, replete to keep K>4, Mg>2 -continue pollard for now Heme- -Hgb has stabilized. Goal Hgb>7 Endo- -DM: chronic. insulin sliding scale. - Maintain BG<200 Musculsk- pressure ulcer prophylaxis. Bedrest. Wounds- none Nutrition-NPO DVT prophylaxis: SCDs GI prophylaxis: protonix Central Line: right subclavian Pollard Catheter: continue Disposition: Patient requires Critical Care/ICU for hyperammonemia, fluid overload, hepatic encephalopathy Patient clinical status: critical Code Status: full Had lengthy conversation with patient's Pietro. He was updated regarding current condition, events over the past 24hrs, went over lab values, etc. We discussed code status and what each option meant and he would like for her to remain a full code. Total Critical Care time is 45 minutes
[2019-04-07] MEDS: hydrALAZINE IV* 20 MG/ML VIAL IV SLOW PU PRN ×2 (03:21→06:00)
[2019-04-07 06:26] LABS: ABS Eosinophils 0.1 10^3/ul (0-0.6); ABS Monocytes 0.9 10^3/ul (0-0.8); ABS Neutrophils 9.4 10^3/ul (1.5-7.7); Eosinophil % 0.5 %; Hematocrit 24 % (35-47); Hemoglobin 8.1 g/dL (12.0-16.0); Lymphocyte % 9.1 %; Mean Corpuscular HGB Conc 33 g/dL (31-36); Mean Corpuscular Hemoglobin 33 pg (27-31); Mean Corpuscular Volume 98 fL (80-97); Mean Platelet Volume 9.7 fL (7.4-10.4); Nucleated Red Blood Cells % 0.1; Platelet Count 85 10^3/uL (150-450); Red Blood Count 2.49 10^6 /uL (3.70-4.87); Red Cell Distribution Width 21 % (10-15); White Blood Count 11.4 10^3/uL (3.5-10.8)
[2019-04-07 06:45] LABS: BUN/Creatinine Ratio 16.6 (8-20); Calcium 9.9 mg/dL (8.6-10.3); EGFR African American 14.6 (>60); EGFR Non-African American 12.1 (>60); Potassium 4.1 mmol/L (3.5-5.0)
[2019-04-07] MEDS: cefTRIAXone(*) 1 GM in NS 0.9% 50 ML* 50 ML IVPB SCH (07:40)
[2019-04-07] MEDS: Nystatin CREAM* 15 GM TUBE TOPICAL SCH ×2 (07:41→22:58)
[2019-04-07] MEDS: Furosemide IV* 10 MG/ML VIAL (40 MG) IV SLOW PU SCH ×2 (07:41→22:50)
[2019-04-07] MEDS: Pantoprazole IV* 40 MG IV SCH ×2 (07:41→22:57)
[2019-04-07] MEDS: Allopurinol TAB* 100 MG PO SCH ×2 (08:21→15:50)
[2019-04-07] MEDS: RiFAXimin* 550 MG TAB PO SCH ×3 (08:21→22:48)
[2019-04-07] MEDS: Insulin LISPRO* 1 UNITS UNIT SUBCUT SCH ×4 (08:28→23:13)
[2019-04-07] MEDS: Spironolactone TAB* 25 MG PO SCH ×2 (09:31→15:50)
[2019-04-07] MEDS: Octreotide Acetate* 100 MCG/ML 1 ML VIAL SUBCUT SCH ×3 (10:43→22:56)
--- NOTE | 2019-04-07 11:21 | PN ---
Progress Note - Progress Note Date of Service: 04/07/19 Note: Inpatient Nephrology Follow-up Note: Performed by Dr. Win Beard, [facility] Nephrology 04/07/2019 73 YO WF HRS LEONILA on CFD Hepatic Encephalopathy. She was transferred to MICU over the weekend, still confused, on lactulose, Rifaximin, Protonix. 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 Severe Anemia s/p 4 U PRBCs. Cryptogenic Cirrhosis and Ascites. She was started on IV Lasix 100 mg BID & Spironolactone 25 mg qd since 04/05 LEONILA on CKD. sCr improved after holding ACEI and infusing Albumin, despite IV Lasix and Aldactone. Peak BUN/sCr 52/5.41~03/27/2019, last BUN/sCr: 57/4.63~04/04/2019 61/4.37~04/05/2019 62/4.09~04/06/2019 61/3.68~04/07/2019 LEONILA improving LEONILA non oliguric Today shes still confused, oriented only to her name. Confusion is likely 2/2 to Hepatic Encephalopathy, rather than LEONILA. She's morbid obesity, has a pannus with lymphedema. Last Urine Output is great response to IV diuresis: 1,400 cc 04/04 2,375 cc~04/05 4,400 cc~04/06 3,895 cc~04/07 Hospital Meds: Albuterol/Ipratropium Allopurinol Furosemide 100 IV BID Hydralazine Ceftriaxone Insulin Human Lispro Lactulose Nystati Octreotide Ondansetron Pantoprazole Rifaximin Spironolactone Allergies: No Known Allergies Allergy (Verified 04/02/19 11:22) Objective: Vital Signs Temp 98.5 F 04/07/19 07:40 Pulse 71 04/07/19 11:01 Resp 27 04/07/19 11:01 BP 160/81 04/07/19 11:01 Pulse Ox 95 04/07/19 11:01 Intake & Output 04/06/19 04/07/19 04/07/19 18:59 06:59 18:59 Intake Total 865 85 Output Total 1810 0761 649 Balance -405 -0555 -684 Weight 152.997 kg Intake: IV Fluids 30 ABX - CEFTRIAXONE 30 IVPB 60 55 ABX - CEFTRIAXONE 60 55 Oral 0 0 Albumin 105 [place] Irrigate Amount 700 Output: NG Tube Drainage Amount 0 NGT 0 [place] 1270 2625 645 Liquid Stool 200 Emesis 0 Other: Date of Last Bowel 04/06/19 Movement Estimated Stool Amount Medium Other Amount Description 0 10 Point multi system exam: Constitutional Alert Oriented x 1 HEENT: dried blood on gums and ecchymosis on lower left eyelid Abdomen Soft Abdomen No Ascites, Huge pannus Heart: NSR, + LE Edema, No murmur Lungs: Clear to auscultation Extremities: + edema, no rash Skin no rash Neurology Confused Hem/Lymph: no palpable lymph nodes Musculoskeletal: No joint swelling Laboratory Reviewed ABG pH 7.37 (7.35-7.45) 04/05/19 02:45 ABG HCO3 18.1 mmol/L (19-31) L 04/05/19 02:45 Sodium 144 mmol/L (135-145) 04/07/19 06:00 Potassium 4.1 mmol/L (3.5-5.0) 04/07/19 06:00 BUN 61 mg/dL (6-24) H 04/07/19 06:00 Creatinine 3.68 mg/dL (0.51-0.95) H 04/07/19 06:00 Calcium 9.9 mg/dL (8.6-10.3) 04/07/19 06:00 Magnesium 2.6 mg/dL (1.9-2.7) 04/05/19 04:50 AST 31 U/L (13-39) 04/06/19 03:58 ALT 10 U/L (7-52) 04/06/19 03:58 A/P LEONILA on CKD. Non Oliguric. Improving despite IV Lasix and Aldactone. I/Os in negative balance. LEONILA likely HRS. Continue HRS regimen Avoid RAAS. No indication for HD I spoke to her , Pietro, over the phone, I update him about her current condition, and that her Kidney function is slightly better, but should her Liver decompensate further, her HRS may recur and may relapse into LEONILA once again, and in that case she may need HD but HD wasnt shown to change outcomes in HRS. He asked about her prognosis, and I told him Cryptogenic Cirrhosis once decompensated is poor prognostic condition, and can be futile if severe. He understood, but raised the question of them been called few days after the blood was drawn, not sooner. I told him this made very little difference whether called same day or few days later in her case, as the fact that I spoke to them to go to ED last week, but that morning, she felt so good at home that they both insisted on waiting till after breakfast, as I called them at 8:30 am and they showed up to ED at 1pm. He finished by saying if she dies he has no home to living, I showed empathy and support. He was informed about lab/radiology results & prognosis. All questions were answered. He was made part of the treatment plan.
[2019-04-07] MEDS: Albuterol/Ipratropium NEB.SOL* Albuterol 2.5 MG/Ipratropium 0.5 MG 3 ML INH SCH ×2 (11:31→16:20)
--- NOTE | 2019-04-07 15:52 | PN ---
Progress Note - Progress Note Date of Service: 04/07/19 Note: pt seen and examined; slightly more alert this am, but then less so this afternoon; had pulled NG out overnight; speech/swallow path eval today; reinsertion of ng pending VS; 98.3, 168/81, 73, 23, 97% nad, icteric, lethargic, more alert and arousable this am obese, +bs, soft +asterixis wbc 11.4, hgb 8.1, bun 61, cr 3.68 Cirrhosis HSE----lactulose via NG/oral, xifaxan HRS----octreotide, lasix on ceftriaxone poor prognosis will follow Ferdinand Smart MD
--- NOTE | 2019-04-07 16:16 | PN ---
Progress Note - Progress Note Date of Service: 04/07/19 Note: Progress Note -- Critical Care 24 hour events/significant events: - Patient's mental status significantly improved overnight. - She also did pull out her NG overnight and nursing was unable to replace it. Slightly hypertensive overnight as well ROS: ROS unable to be obtained secondary to altered mental status Tele: sinus Vitals: Vital Signs 04/06/19 04/06/19 04/06/19 15:58 16:00 17:00 Temperature 97.6 F Pulse Rate 85 85 84 Respiratory 31 29 26 Rate Blood Pressure 162/87 160/85 125/67 (mmHg) O2 Sat by Pulse 95 96 96 Oximetry 04/06/19 04/06/19 04/06/19 18:00 19:00 20:00 Temperature Pulse Rate 84 83 84 Respiratory 26 22 31 Rate Blood Pressure 138/67 156/81 162/88 (mmHg) O2 Sat by Pulse 96 96 96 Oximetry 04/06/19 04/06/19 04/06/19 21:00 22:00 22:01 Temperature Pulse Rate 66 67 72 Respiratory 20 30 27 Rate Blood Pressure 159/87 162/73 (mmHg) O2 Sat by Pulse 97 95 95 Oximetry 04/06/19 04/06/19 04/07/19 23:00 23:41 00:00 Temperature 97.9 F Pulse Rate 69 70 73 Respiratory 34 29 29 Rate Blood Pressure 154/74 (mmHg) O2 Sat by Pulse 96 95 95 Oximetry 04/07/19 04/07/19 04/07/19 00:01 01:00 01:01 Temperature Pulse Rate 74 79 81 Respiratory 30 16 23 Rate Blood Pressure 161/86 140/84 (mmHg) O2 Sat by Pulse 95 95 96 Oximetry 04/07/19 04/07/19 04/07/19 02:00 02:01 03:00 Temperature Pulse Rate 87 86 74 Respiratory 20 25 Rate Blood Pressure 167/88 176/85 (mmHg) O2 Sat by Pulse 95 95 95 Oximetry 04/07/19 04/07/19 04/07/19 04:00 04:01 05:00 Temperature 97.9 F Pulse Rate 73 72 71 Respiratory 31 31 27 Rate Blood Pressure 164/98 171/79 (mmHg) O2 Sat by Pulse 95 95 95 Oximetry 04/07/19 04/07/19 04/07/19 06:00 06:01 07:00 Temperature Pulse Rate 69 71 72 Respiratory 28 28 32 Rate Blood Pressure 164/77 166/82 (mmHg) O2 Sat by Pulse 95 95 96 Oximetry 04/07/19 04/07/19 04/07/19 07:16 07:40 08:00 Temperature 97.9 F 98.5 F Pulse Rate 71 Respiratory 25 Rate Blood Pressure 164/80 (mmHg) O2 Sat by Pulse 96 Oximetry 04/07/19 04/07/19 04/07/19 09:00 10:00 11:00 Temperature Pulse Rate 72 72 69 Respiratory 30 31 30 Rate Blood Pressure 155/72 154/78 (mmHg) O2 Sat by Pulse 96 96 95 Oximetry 04/07/19 04/07/19 04/07/19 11:01 11:10 12:00 Temperature 98.5 F Pulse Rate 71 67 Respiratory 27 20 Rate Blood Pressure 160/81 131/70 (mmHg) O2 Sat by Pulse 95 97 Oximetry 04/07/19 04/07/19 04/07/19 13:00 13:01 14:00 Temperature Pulse Rate 63 61 72 Respiratory 19 18 29 Rate Blood Pressure 142/97 (mmHg) O2 Sat by Pulse 94 96 95 Oximetry 04/07/19 04/07/19 04/07/19 14:10 15:00 15:43 Temperature 98.3 F Pulse Rate 69 75 Respiratory 29 23 Rate Blood Pressure 151/77 168/81 (mmHg) O2 Sat by Pulse 96 97 Oximetry Intake and Output Last 24 Hours 04/05/19 04/06/19 04/07/19 04/08/19 06:59 06:59 06:59 06:59 Intake Total 1006 145 865 205 Output Total 3323 5493 409 1680 Balance -2319 -5280 -3230 -1480 Weight 352 lb 9.6 oz 337 lb 4.8 oz Intake: IV Fluids 901 30 ABX - CEFTRIAXONE 30 Albumin 314 0 blood 587 0 IVPB 60 55 ABX - CEFTRIAXONE 60 55 Oral 0 0 0 120 Albumin 105 105 105 NG Tube Irrigate Amount 40 Pollard Irrigate Amount 700 Output: NG Tube Drainage Amount 0 NGT 0 Urine 825 Pollard 2375 4400 3895 1685 Liquid Stool 950 200 200 Emesis 0 0 Other: Date of Last Bowel 04/06/19 04/06/19 Movement # Bowel Movements 0 1 Estimated Stool Amount Medium Medium Other Amount Description 0 0 O2: RA Infusions: None Medications: Albuterol/Ipratropium (Duoneb (Albuterol 2.5 Mg/Ipratropium 0.5 Mg)) 1 neb INH Q6H [facility] Last Admin: 04/07/19 11:31 Dose: 1 neb Allopurinol (Zyloprim Tab*) 100 mg PO DAILY [facility] Last Admin: 04/07/19 12:54 Dose: 100 mg Dextrose (D50w Syringe 50 Ml*) 12.5 gm IV PUSH .FOR FS < 60 - SS PRN PRN Reason: FS < 60 Furosemide (Lasix Iv*) 100 mg IV SLOW PU Q12H [facility] Last Admin: 04/07/19 07:41 Dose: 100 mg Hydralazine HCl (Apresoline Iv*) 5 mg IV SLOW PU Q6H PRN PRN Reason: SBP>170 Last Admin: 04/07/19 06:00 Dose: 5 mg Ceftriaxone Sodium 1 gm/ (Sodium Chloride) 50 mls @ 100 mls/hr IVPB Q24H [facility] Last Admin: 04/07/19 07:40 Dose: 100 mls/hr Insulin Human Lispro (Humalog*) 0 units SUBCUT ACHS [facility]; Protocol Last Admin: 04/07/19 11:52 Dose: 4 units Lactulose (Lactulose*) 30 ml NG TUBE TID [facility] Last Admin: 04/07/19 12:53 Dose: 30 ml Nystatin (Nystatin Cream*) 1 applic TOPICAL BID [facility] Last Admin: 04/07/19 07:41 Dose: 1 applic Octreotide Acetate (Octreotide Acetate*) 100 mcg SUBCUT TID [facility] Last Admin: 04/07/19 10:43 Dose: 100 mcg Ondansetron HCl (Zofran Inj*) 4 mg IV Q6H PRN PRN Reason: NAUSEA Pantoprazole Sodium (Protonix Iv*) 40 mg IV Q12H [facility] Last Admin: 04/07/19 07:41 Dose: 40 mg Rifaximin (Xifaxan*) 550 mg PO BID [facility] Last Admin: 04/07/19 15:44 Dose: 550 mg Spironolactone (Aldactone Tab*) 25 mg PO DAILY [facility] Last Admin: 04/07/19 12:54 Dose: 25 mg Physical Exam: Constitutional: awake, alert, oriented to self only. No distress, no diaphoresis Head: normocephalic, atraumatic Eyes: no pallor, no icterus ENT: dry mucous membranes Neck: soft, supple CVS: normal rate, regular, no murmur Chest/Resp: bilateral air entry, no rhales, no wheeze, no rhonchi, no acc muscle use Abdomen/GI: morbid obesity, nontender, pitting edema 2+ lower abdomen, chronic skin changes, nondistended, BS+ Ext/Msk: warm, pulses+, chronic skin changes and pitting edema 2+ BLE, nonpitting edema BUE Skin: intact, warm Neuro: awake, alert, oriented to self only. Follows some commands, moving all extremities. Exam is limited d/t mental status Psych: normal affect Labs: Laboratory Results - last 24 hr 04/04/19 04/07/19 04/07/19 13:13 06:00 06:00 WBC 11.4 H RBC 2.49 L Hgb 8.1 L Hct 24 L MCV 98 H MCH 33 H MCHC 33 RDW 21 H Plt Count 85 L MPV 9.7 Neut % (Auto) 82.6 Lymph % (Auto) 9.1 [place] % (Auto) 7.6 Eos % (Auto) 0.5 Baso % (Auto) 0.2 Absolute Neuts (auto) 9.4 H Absolute Lymphs (auto) 1.0 Absolute Monos (auto) 0.9 H Absolute Eos (auto) 0.1 Absolute Basos (auto) 0.0 Absolute Nucleated RBC 0.0 Nucleated RBC % 0.1 Hem Pathologist Commnt Sodium Potassium Chloride Carbon Dioxide Anion Gap BUN Creatinine Est GFR ( Amer) Est GFR (Non-Af Amer) BUN/Creatinine Ratio Glucose Calcium Ammonia 85 H 04/07/19 06:00 WBC RBC Hgb Hct MCV MCH MCHC RDW Plt Count MPV Neut % (Auto) Lymph % (Auto) [place] % (Auto) Eos % (Auto) Baso % (Auto) Absolute Neuts (auto) Absolute Lymphs (auto) Absolute Monos (auto) Absolute Eos (auto) Absolute Basos (auto) Absolute Nucleated RBC Nucleated RBC % Hem Pathologist Commnt Sodium 144 Potassium 4.1 Chloride 113 H Carbon Dioxide 17 L Anion Gap 14 H BUN 61 H Creatinine 3.68 H Est GFR ( Amer) 14.6 Est GFR (Non-Af Amer) 12.1 BUN/Creatinine Ratio 16.6 Glucose 172 H Calcium 9.9 Ammonia Imaging: Chest xray 04/05: small bilateral pleural effusions CTH 04/05: neg for acute changes Assessment: 73F with known medical history of GODFREY, TIA, HTN, DM, CKD, thrombocytopenia, gout, anemia, hyperammonemia presents on 04/02/19 after being sent to the ED by her social media sr strategy manager. Her labs were concerning for worsening kidney function and significant anemia. Admitted to ICU with worsening neuro exam, LEONILA, melana, possible hepatorenal syndrome. 04/06: Mental status slowly improving. - Hepatic encephalopathy - Hyperammonenia - HTN - GODFREY - Likely hepatorenal syndrome Plan: Neuro- - Encephalopathy- hepatic. Improving mental status this morning. However, patient difficult to arouse around 2pm but awake and alert again at 3pm. - Continue lactulose. No need to recheck ammonia level -Delirium prec; avoid BDZ CVS- - HTN: chronic. Will continue with aggressive diuresis as long as BP can tolerate -Maintain MAP>65 as long as SBP<160 Resp- - Having some expiratory wheezes and rhonchii so started scheduled duonebs -Wean Fio2 to keep sat>92% -Aspiration prec, Pulmonary Toilet ID- - Currently being treated prophylactically with ceftriaxone for SBP GI- -Nutrition: Passed speech eval for pureed diet with thin liquids. However, since mental status waxes and wanes, will put in corpak for nutrition and medications. -GI prophylaxis- protonix - GODFREY- chronic. Continue lactulose 30ml TID - Continue ocreotide subq - Palliative consult for goals of care Renal- - Likely hepatorenal syndrome. Continue aggressive diuresis with lasix 100mg BID -strict I/O, replete to keep K>4, Mg>2 -continue pollard for now Heme- -Hgb has stabilized. Goal Hgb>7 Endo- -DM: chronic. insulin sliding scale. - Maintain BG<200 Musculsk- pressure ulcer prophylaxis. Bedrest. Wounds- none Nutrition-NPO DVT prophylaxis: SCDs GI prophylaxis: protonix Central Line: right subclavian Pollard Catheter: continue Disposition: Patient requires Critical Care/ICU for hyperammonemia, fluid overload, hepatic encephalopathy Patient clinical status: critical Code Status: full Total Critical Care time is 30 minutes
[2019-04-07] MEDS ORDERED: Albuterol/Ipratropium NEB.SOL* Albuterol 2.5 MG/Ipratropium 0.5 MG 3 ML INH PRN (16:19)
[2019-04-07] MEDS ORDERED: oxyCODONE TAB* 5 MG TAB PO ONE (22:31)
[2019-04-08] MEDS: Insulin LISPRO* 1 UNITS UNIT SUBCUT SCH ×4 (09:12→23:19)
[2019-04-08] MEDS: Furosemide IV* 10 MG/ML VIAL (40 MG) IV SLOW PU SCH ×2 (09:14→23:17)
[2019-04-08] MEDS: Pantoprazole IV* 40 MG IV SCH ×2 (09:14→23:18)
[2019-04-08] MEDS: Octreotide Acetate* 100 MCG/ML 1 ML VIAL SUBCUT SCH ×3 (09:14→23:19)
[2019-04-08] MEDS: Spironolactone TAB* 25 MG PO SCH (09:17)
[2019-04-08] MEDS: RiFAXimin* 550 MG TAB PO SCH ×2 (09:17→23:17)
[2019-04-08] MEDS: Nystatin CREAM* 15 GM TUBE TOPICAL SCH ×2 (09:17→23:30)
[2019-04-08] MEDS: Allopurinol TAB* 100 MG PO SCH (09:17)
[2019-04-08] MEDS: cefTRIAXone(*) 1 GM in NS 0.9% 50 ML* 50 ML IVPB SCH (09:17)
--- NOTE | 2019-04-08 12:50 | PN ---
Subjective Date of Service: 04/08/19 Interval History: HD 7 on 04/08 Transferred from ICU on 04/07. Overnight: NO acute overnight events Vitals stable Patient seen at bedside and patient was having breakfast. Patient is alert and oriented to time, place and person. She says that she is feeling fine and denies any symptoms like abdominal pain, nausea and fever. She had a bowel movement and is having 3-4 bowel movements per day. She says that NG tube is making her difficult to breathe and wants it to take it out. She could tell why is she here in the hospital but does not recall few in-between events. She says she has pain in joints because of arthritis and takes oxycodone at home. She was counselled about harmful side effects of oxycodone given her other comorbidities. Goals of care discussion was started with patient and she wants to think about it. Had goals of care discussion later afternoon with patient and her and patient is now DNR/DNI with limited intervention. Objective Active Medications: Albuterol/Ipratropium (Duoneb (Albuterol 2.5 Mg/Ipratropium 0.5 Mg)) 1 neb INH Q4H PRN PRN Reason: SHORTNESS OF BREATH Allopurinol (Zyloprim Tab*) 100 mg PO DAILY [facility] Last Admin: 04/08/19 09:17 Dose: 100 mg Dextrose (D50w Syringe 50 Ml*) 12.5 gm IV PUSH .FOR FS < 60 - SS PRN PRN Reason: FS < 60 Furosemide (Lasix Iv*) 100 mg IV SLOW PU Q12H [facility] Last Admin: 04/08/19 09:14 Dose: 100 mg Heparin Sodium (Porcine) (Heparin Flush Picc/Ml/Cvc(*)) 1 ml FLUSH 0600,1800 [facility]; Protocol Hydralazine HCl (Apresoline Iv*) 5 mg IV SLOW PU Q6H PRN PRN Reason: SBP>170 Last Admin: 04/07/19 06:00 Dose: 5 mg Ceftriaxone Sodium 1 gm/ (Sodium Chloride) 50 mls @ 100 mls/hr IVPB Q24H [facility] Last Admin: 04/08/19 09:17 Dose: 100 mls/hr Insulin Human Lispro (Humalog*) 0 units SUBCUT ACHS [facility]; Protocol Last Admin: 04/08/19 09:12 Dose: 4 units Lactulose (Lactulose*) 30 ml NG TUBE TID [facility] Last Admin: 04/08/19 09:17 Dose: 30 ml Nystatin (Nystatin Cream*) 1 applic TOPICAL BID [facility] Last Admin: 04/08/19 09:17 Dose: 1 applic Octreotide Acetate (Octreotide Acetate*) 100 mcg SUBCUT TID [facility] Last Admin: 04/08/19 09:14 Dose: 100 mcg Ondansetron HCl (Zofran Inj*) 4 mg IV Q6H PRN PRN Reason: NAUSEA Pantoprazole Sodium (Protonix Iv*) 40 mg IV Q12H [facility] Last Admin: 04/08/19 09:14 Dose: 40 mg Rifaximin (Xifaxan*) 550 mg PO BID [facility] Last Admin: 04/08/19 09:17 Dose: 550 mg Spironolactone (Aldactone Tab*) 25 mg PO DAILY [facility] Last Admin: 04/08/19 09:17 Dose: 25 mg Vital Signs - 8 hr 04/08/19 10:30 Blood Pressure 150/82 (mmHg) Oxygen Devices in Use Now: None Exam: Patient is sitting comfortably in bed with no acute distress. HEENT: Redness on right conjunctiva; bruises on face and neck. Chest: Line in place. clear with no added sound heart: S1/S2 heard with no murmur Abdomen: Distended and nontender. Pitting edema 3+. Coarse and thickened skin on lower abdomen. Normal BS heard Extremities: Scattered bruises on upper extremity. LE plascencia chronic pigmentation and pitting edema upto thighs and overgrown toenails. Neuro: Alert, oriented and coperative. No astrexis noted. Result Diagrams: 04/08/19 13:48 04/08/19 13:48 Microbiology and Other Data: Microbiology 04/02/19 17:09 Stool Occult Blood (MALIHA) - Final Stool Assess/Plan/Problems-Billing Assessment: 73 y/o female with a PMH for Decompensated CirrhosisX3 secondary to GODFREY, CKD, DM II, HTN, TIA, presented from nephrology clinic because of LEONILA and anemia. Found to have decompensated cirrhosis, LEONILA 2/2 HRS, Anemia 2/2 upper GI bleed 2/ 2 to varices/gastritis- s/p 4 U PRBC. Hospital course complicated by hepatic encephalopathy requiring ICU stay with placement of NG tube for lactulose. - Patient Problems (1) Decompensated hepatic cirrhosis Current Visit: Yes Status: Acute Code(s): K72.90 - HEPATIC FAILURE, UNSPECIFIED WITHOUT COMA SNOMED Code(s): 881970698 Comment: -Decompensated cirrhosis- Portal HTN, HE, HRS -secondary to GODFREY. -MELD-Na score is 29 which carries 27-32% risk of mortality in 90 days. -Portal HTN- Nadolol(low- dose) -HE: lactulose, rifaximin -HRS: octreotride, IV lasix for volume overload; already received 2 doses of albimin -SBP prophylaxis: Iv ceftriaxone(day 5 on 04/08)- for total of 7 days. -appreciate GI input -replaced K (2) High anion gap metabolic acidosis Current Visit: Yes Status: Acute Code(s): E87.2 - ACIDOSIS SNOMED Code(s) : 59892997 Comment: -Anion gap of 14 with chloride 113 -could be from LEONILA or from starvation acidosis. -LActic acid elevated which could be from decrease clearance -We will follow the anion gap and lactic acid. -Cannot give IV fluids -treating LEONILA (3) Heart failure with preserved ejection fraction Current Visit: Yes Status: Acute Code(s): I50.30 - UNSPECIFIED DIASTOLIC ( CONGESTIVE) HEART FAILURE SNOMED Code(s): 511477782 Comment: -Echo in 12/2018 shows Ef of 60-65% with grade 2 diastolic dysfunction. -Mild dilatation of atrium. -Mild -Has patent foramen ovale. -Is volume overloaded but likely from LEONILA and cirrhosis; less likely from HF (4) Acute kidney injury Current Visit: No Status: Acute Priority: High Onset Date: 03/19/14 Code (s): N17.9 - ACUTE KIDNEY FAILURE, UNSPECIFIED SNOMED Code(s): 69664442 Comment: -Secondary to Hepatorenal syndrome. -Low urine sodium. -Making urine- net negative on IV lasix 100 mg BID -Appreciate nephrology consult -Creatinine improving -Clinincally volume overloaded. -Continue octreotide. received albumin -Avoid lisinopril --Continue iv lasix and spironolactone- will slowly deescalate lasix (5) Chronic pain syndrome Current Visit: No Status: Acute Code(s): G89.4 - CHRONIC PAIN SYNDROME SNOMED Code(s): 713622549 Comment: - Continue reduced dose oxycodone- 5 mg (6) History of gout Current Visit: No Status: Acute Code(s): Z87.39 - PERSONAL HISTORY OF DISEASES OF THE MS SYS AND CONN TISS SNOMED Code(s): 638951269 Comment: - Continue allopurinol- renally dose (7) Hypertension Current Visit: No Status: Acute Code(s): I10 - ESSENTIAL (PRIMARY) HYPERTENSION SNOMED Code(s): 15314683 Comment: - Bp on higher side. -Continue lasix -iv hydralazine prn (8) Peptic ulcer disease Current Visit: No Status: Acute Code(s): K27.9 - PEPTIC ULC, SITE UNSP, UNSP AC OR CHR, W/O HEMOR OR PERF SNOMED Code(s): 20515704 Comment: - has gastric nodualrity with inflamation -continue PPI. (9) TIA (transient ischemic attack) Current Visit: No Status: Acute Code(s): G45.9 - TRANSIENT CEREBRAL ISCHEMIC ATTACK, UNSPECIFIED SNOMED Code(s): 273603646 Comment: - History TIA - Continue Statin, hold ASA (10) Diabetes mellitus Current Visit: No Status: Chronic Code(s): E11.9 - TYPE 2 DIABETES MELLITUS WITHOUT COMPLICATIONS SNOMED Code(s): 17903642 Comment: - A1c is 5.1 on feb 2019 -is on insulin glargine BID at home -hold lantus. -Continue insulin lispro (11) DVT prophylaxis Current Visit: No Status: Acute Priority: Medium Onset Date: 03/19/14 Code(s): YNQ5293 - SNOMED Code(s): 371896384 Comment: - No chemical DVT prophylaxis in GI bleeding - SCDs (12) DNR (do not resuscitate) Current Visit: Yes Status: Acute Comment: -discussed with patient and her . Status and Disposition: Inpatient Attending: Katey Lopez Attestation Documenting Resident: Isabel Motta Supervising Physician: Katey Lopez Attending/Supervising Physician Comment: Agree with resident note and plan: Attending A/P 73F PMH GODFREY cirrhosis d/b HE, ascites, and gastric varices, HFpEF (last echo 201819 Grade 2 diastolic and EF 60%), CKD, morbid obesity, IDDM with A1C 5, HTN, gout, hx of TIA, PUD, chronic pain on detention opiates who was admitted on 04/02 with anemia 2/2 to UGIB with evidence of LEONILA on CKD thought to be attributed ot HRS and gross volume overload. She is s/p EGD on 04/03 showing GAVE but no active bleeding nad e/o gastric varicies Her late hospital course c/b HE, necessitating ICU transfer, placement of NGT for lactulose on 04/05 , transferred back out on 04/07. She is sig improved from a mental status standpoint today, tolerating a full diet and without asterixis and clear, though still with multimorbiditiy and high risk for decompensation #LEONILA on CKD: 2/2 to HRS from splanchnic dilatation -Octreotide SQ, Albumin x 2 days -Not needing midodrine -Perhaps beyond HRS also e/o volume overload from HFpEF, remains on IV Lasix with net goal -1-2L, may be able to dose down Lasix soon -Olvera I/O #AGMA: Lactic elevated, CTM q 6 #Decompensated cirrhosis, MELD per resident note -HE: Lactulose PO TID, if refusing we MUST know about it RN to provider communication, NGT removed today, continue rifaxin -Ascites: Lasix 100 IV BID (may down grade dosage as Cr improves), spironolactone 25mg, still grossly volume overloaded but will need to watch carefully for risk of intravascular depletion despite total body overload in a low albumin state -Varices: Start low dose nadalol., BP can handle -Workup per outpt, HCC screening per outpt -HRS: as per LEONILA #HFPEF: Appears decopensated though this may be multifactorial, d/c atenolol on d/c in facor of andolol, continue asa, statin #PUD and relatively recent UGIB: s/p 4U PRBC, stable for now -IV PPI BID -PPX covered for SBP with CTX Day / on 04/08 #IDDM: Well controlled on low dose lispro, continue for now, dose reduce lantus on d/c, likely brittle in setting of organ failure #Anemia: 2/2 to acute blood loss and ACD comped with LEONILA on CKD #HTN: Sprinolcatone, nadolol and Lasix #Gout: Alloputrinol is reanlly dosed #Chronic pain: Dose reduce opiate to 5mg BID and discusse dhtis at length with her, offered palliative in its place htough she declines, pts with cirrhosis may have up to 1gram Tylenol a day DVT PPX : Off in setting of GIB Code Status: Broached topic of palliative today will need continued discussions they are not ready to fully to discuss her prognosis or the difficult place they are in with such multimorbditiy. Will continue discussion at least about code status though for now they remain full code. Palliative consult in place Attestation: This service has been performed in part by a resident under the direction of a teaching physician.I, Katey Lopez, performed the service, or was physically present during the critical, or st portions of the service, furnished by the resident. I participated in the management of the patient.
[2019-04-08 14:12] LABS: ABS Basophils 0.1 10^3/ul (0-0.2); ABS Eosinophils 0.9 10^3/ul (0-0.6); ABS Lymphocytes 1.5 10^3/ul (1.0-4.8); ABS Monocytes 1.2 10^3/ul (0-0.8); Eosinophil % 7.4 %; Hematocrit 25 % (35-47); Hemoglobin 8.1 g/dL (12.0-16.0); Lymphocyte % 11.8 %; Mean Corpuscular HGB Conc 33 g/dL (31-36); Mean Corpuscular Hemoglobin 33 pg (27-31); Mean Corpuscular Volume 100 fL (80-97); Mean Platelet Volume 8.7 fL (7.4-10.4); Nucleated Red Blood Cells % 0.3; Platelet Count 71 10^3/uL (150-450); Red Blood Count 2.48 10^6 /uL (3.70-4.87); Red Cell Distribution Width 22 % (10-15); White Blood Count 12.7 10^3/uL (3.5-10.8)
[2019-04-08 14:23] LABS: Albumin 3.4 g/dL (3.2-5.2); Albumin/Globulin Ratio 0.9 (1-3); BUN/Creatinine Ratio 17.8 (8-20); Calcium 9.5 mg/dL (8.6-10.3); EGFR African American 15.9 (>60); EGFR Non-African American 13.1 (>60); Globulin 3.6 g/dL (2-4); Potassium 3.5 mmol/L (3.5-5.0)
--- NOTE | 2019-04-08 14:32 | PN ---
Progress Note - Progress Note Date of Service: 04/08/19 Note: Inpatient Nephrology Follow-up Note: Performed by Dr. Win Beard, [facility] Nephrology 04/08/2019 73 YO WF HRS, LEONILA on CKD. Improved Peak BUN/sCr 52/5.41~03/27 Hepatic Encephalopathy, on lactulose, Rifaximin, Protonix. Improved Portal HTN, Ascites & Portal Gastropathy Anemia s/p 4 U PRBCs.Stable. Last Hb 8.1~04/08 Cryptogenic Cirrhosis Fluid overload on IV Lasix 100 mg BID & Spironolactone 25 mg qd since 04/05 BUN/sCr: 57/4.63~04/04/2019 61/4.37~04/05/2019 62/4.09~04/06/2019 61/3.68~04/07/2019 61/3.42~04/08/2019 LEONILA persistently improving Today shes happy, comfortable, eating and drinking, alert & oriented and the at the bedside 1,400 cc 04/04 2,375 cc~04/05 4,400 cc~04/06 3,895 cc~04/07 1,750 cc~04/08 Hospital Meds: Albuterol/Ipratropium Allopurinol Furosemide 100 mg IVP Hydralazine Ceftriaxone Insulin Human Lispro Lactulose Nadolol Nystatin Octreotide Ondansetron Oxycodone Pantoprazole Rifaximin Spironolactone Objective: Vital Signs Vital Signs Temp 97.6 F 04/08/19 03:30 Pulse 71 04/08/19 03:30 Resp 16 04/08/19 03:30 BP 150/82 04/08/19 10:30 Pulse Ox 99 04/08/19 03:30 Intake & Output 04/07/19 04/08/19 04/08/19 18:59 06:59 18:59 Intake Total 445 365 Output Total 1960 1750 Balance -1515 -1385 Intake: IV Fluids 30 ABX - CEFTRIAXONE 30 Albumin 0 blood 0 IVPB 55 ABX - CEFTRIAXONE 55 Oral 360 240 NG Tube Irrigate Amount 125 Output: Olvera 1959 1749 10 Point multi system exam: Constitutional Alert Oriented Abdomen Soft Abdomen No Ascites, Huge pannus Heart: NSR, + LE Edema, No murmur Lungs: Clear to auscultation Extremities: + edema, no rash Skin no rash Hem/Lymph: no palpable lymph nodes Musculoskeletal: No joint swelling Laboratory Reviewed ABG pH 7.37 (7.35-7.45) 04/05/19 02:45 ABG HCO3 18.1 mmol/L (19-31) L 04/05/19 02:45 Sodium 138 mmol/L (135-145) 04/08/19 13:48 Potassium 3.5 mmol/L (3.5-5.0) 04/08/19 13:48 BUN 61 mg/dL (6-24) H 04/08/19 13:48 Creatinine 3.42 mg/dL (0.51-0.95) H 04/08/19 13:48 Calcium 9.5 mg/dL (8.6-10.3) 04/08/19 13:48 Magnesium 2.6 mg/dL (1.9-2.7) 04/05/19 04:50 AST 43 U/L (13-39) H 04/08/19 13:48 ALT 14 U/L (7-52) 04/08/19 13:48 A/P LEONILA on CKD. Non Oliguric. Improving I/Os in negative balance. Continue HRS regimen Avoid RAAS. No indication for HD Replace K. Keep it >4.0 They were informed about lab/radiology results & prognosis. All questions were answered. They were made part of the treatment plan.
[2019-04-08] MEDS ORDERED: oxyCODONE TAB* 5 MG TAB ONE (14:38)
[2019-04-08] MEDS ORDERED: Potassium Chlor TAB* 20 MEQ TAB.ER PO ONE (14:46)
[2019-04-08] MEDS ORDERED: Acetaminophen TAB* 325 MG PO PRN (15:06)
--- NOTE | 2019-04-08 17:06 | PN ---
Hospitalist Progress Note Date of Service: 04/08/19 Met with Margaret and her at length today, we discussed her current medical conditions, and also celebrated her feeling better. We discussed overall prognosis with kidney disease and liver failure and she shares with me that she is aware that her prognosis overall is poor and she has felt for some time her quality of life has suffered, she is aware dialysis is not an option if she were to need it. She is feeling encouraged by her current improvement and she is forward looking and optimistic despite the odds, which her shares. In light of her education, we discuss end of life sustainign orders if and when that time arises, we dispel the common misconception that DNR often means to patients, "do not treat" we discuss what kind of interventions she would want when her heart stops. She reports that if she has no good chances for a full and meaningful recovery where she could be independent she would not want CPR. We furthermore discuss that not doing CPR is allowing "a natural " and not "intervening in a natural process" and she says that this is very much what she wants, her is fully in support of this. We discuss intubation, her mother was intubated at the end of her life and Margaret recalls it was painful and traumatic. She reports if she were unable to breathe on her own she would want BIPAP but not mechanical ventilation or intubation -She would want a temporary feeding tube, IV fluids, antibitoics and a central line if needed We discuss her wishes are more consistent with DNR/DNI and that in making these wishes known does not preclude her from treatment. She is very much not " comfort measures only" but is cautiously optimistic but her and her are also "preparing for the worst" We complete the MOLST form and they have no further questions
[2019-04-08] MEDS ORDERED: oxyCODONE TAB* 5 MG TAB PO SCH (21:00)
[2019-04-09 06:37] LABS: Hematocrit 20 % (35-47); Hemoglobin 6.8 g/dL (12.0-16.0); Mean Corpuscular HGB Conc 34 g/dL (31-36); Mean Corpuscular Hemoglobin 33 pg (27-31); Mean Corpuscular Volume 98 fL (80-97); Mean Platelet Volume 9.4 fL (7.4-10.4); Platelet Count 68 10^3/uL (150-450); Red Blood Count 2.05 10^6 /uL (3.70-4.87); Red Cell Distribution Width 22 % (10-15); White Blood Count 9.4 10^3/uL (3.5-10.8)
--- NOTE | 2019-04-09 06:44 | PN ---
Subjective Date of Service: 04/09/19 Interval History: HD 8 on 04/09 Transferred from ICU on 04/07 Overnight: No acute overnight events Vitals stable Hb-6.8 Patient having breakfast and denies pain, nausea and vomiting. Had multiple BM yesterday. Denies difficulty in breathing. States about having chronic pain. Objective Active Medications: Acetaminophen (Tylenol Tab*) 650 mg PO BID PRN PRN Reason: PAIN - MILD Albuterol/Ipratropium (Duoneb (Albuterol 2.5 Mg/Ipratropium 0.5 Mg)) 1 neb INH Q4H PRN PRN Reason: SHORTNESS OF BREATH Allopurinol (Zyloprim Tab*) 100 mg PO DAILY [facility] Last Admin: 04/08/19 09:17 Dose: 100 mg Dextrose (D50w Syringe 50 Ml*) 12.5 gm IV PUSH .FOR FS < 60 - SS PRN PRN Reason: FS < 60 Furosemide (Lasix Iv*) 100 mg IV SLOW PU Q12H [facility] Last Admin: 04/08/19 23:17 Dose: 100 mg Heparin Sodium (Porcine) (Heparin Flush Picc/Ml/Cvc(*)) 1 ml FLUSH 0600,1800 [facility]; Protocol Last Admin: 04/09/19 06:27 Dose: 1 ml Ceftriaxone Sodium 1 gm/ (Sodium Chloride) 50 mls @ 100 mls/hr IVPB Q24H [facility] Last Admin: 04/08/19 09:17 Dose: 100 mls/hr Insulin Human Lispro (Humalog*) 0 units SUBCUT ACHS [facility]; Protocol Last Admin: 04/08/19 23:19 Dose: 4 units Lactulose (Lactulose*) 30 ml PO TID [facility] Last Admin: 04/08/19 23:16 Dose: 30 ml Nadolol (Corgard Tab*) 20 mg PO DAILY [facility] Nystatin (Nystatin Cream*) 1 applic TOPICAL BID [facility] Last Admin: 04/08/19 23:30 Dose: 1 applic Octreotide Acetate (Octreotide Acetate*) 100 mcg SUBCUT TID [facility] Last Admin: 04/08/19 23:19 Dose: 100 mcg Ondansetron HCl (Zofran Inj*) 4 mg IV Q6H PRN PRN Reason: NAUSEA Oxycodone HCl (Roxycodone Tab*) 5 mg PO BID PRN PRN Reason: PAIN - SEVERE Pantoprazole Sodium (Protonix Iv*) 40 mg IV Q12H [facility] Last Admin: 04/08/19 23:18 Dose: 40 mg Rifaximin (Xifaxan*) 550 mg PO BID [facility] Last Admin: 04/08/19 23:17 Dose: 550 mg Spironolactone (Aldactone Tab*) 25 mg PO DAILY [facility] Last Admin: 04/08/19 09:17 Dose: 25 mg Vital Signs - 8 hr 04/09/19 03:32 Temperature 97.4 F Pulse Rate 63 Respiratory 18 Rate Blood Pressure 137/55 (mmHg) O2 Sat by Pulse 97 Oximetry Oxygen Devices in Use Now: None Exam: Patient is sitting comfortably in bed with no acute distress. HEENT: Redness on right conjunctiva; bruises on face and neck. Chest: Line in place. clear with no added sound heart: S1/S2 heard with no murmur Abdomen: Distended and nontender. Pitting edema 3+. Coarse and thickened skin on lower abdomen. Normal BS heard Extremities: Scattered bruises on upper extremity. LE plascencia chronic pigmentation and pitting edema upto thighs and overgrown toenails. Neuro: Alert, oriented and coperative. No astrexis noted. Result Diagrams: 04/09/19 06:20 04/09/19 06:20 Microbiology and Other Data: Microbiology 04/02/19 17:09 Stool Occult Blood (MALIHA) - Final Stool Assess/Plan/Problems-Billing Assessment: 73 y/o female with a PMH for Decompensated CirrhosisX3 secondary to GODFREY, CKD, DM II, HTN, TIA, presented from nephrology clinic because of LEONILA and anemia. Found to have decompensated cirrhosis, LEONILA 2/2 HRS, Anemia 2/2 upper GI bleed 2/ 2 to varices/gastritis- s/p 4 U PRBC. Hospital course complicated by hepatic encephalopathy requiring ICU stay with placement of NG tube for lactulose. removed NG tube on 04/08. - Patient Problems (1) Decompensated hepatic cirrhosis Current Visit: Yes Status: Acute Code(s): K72.90 - HEPATIC FAILURE, UNSPECIFIED WITHOUT COMA SNOMED Code(s): 159024732 Comment: -Decompensated cirrhosis- Portal HTN, HE, HRS -secondary to GODFREY. -MELD-Na score is 29 which carries 27-32% risk of mortality in 90 days. -Portal HTN- Nadolol(low- dose) -HE: lactulose, rifaximin -HRS: octreotride, IV lasix for volume overload; already received 2 doses of albimin -SBP prophylaxis: Iv ceftriaxone(day 6 on 04/09)- for total of 7 days. -appreciate GI input -replaced K (2) Anemia Current Visit: No Status: Acute Code(s): D64.9 - ANEMIA, UNSPECIFIED SNOMED Code(s): 370624361 Comment: -s/p 4U PRBC - from gastric varices and PUD - PPI IV BID - Octreotide for HRS -HB today is 6.8 - will tranfuse 1U of PRBC today. -will monitor H&H (3) High anion gap metabolic acidosis Current Visit: Yes Status: Acute Code(s): E87.2 - ACIDOSIS SNOMED Code(s) : 47857793 Comment: -resolved -could be from LEONILA or from starvation acidosis or from decreased clearance of lactic acid. -Lactic acid normal (4) Heart failure with preserved ejection fraction Current Visit: Yes Status: Acute Code(s): I50.30 - UNSPECIFIED DIASTOLIC ( CONGESTIVE) HEART FAILURE SNOMED Code(s): 258690004 Comment: -Echo in 12/2018 shows Ef of 60-65% with grade 2 diastolic dysfunction. -Mild dilatation of atrium. -Mild -Has patent foramen ovale. -Is volume overloaded but likely from LEONILA and cirrhosis; less likely from HF (5) Acute kidney injury Current Visit: No Status: Acute Priority: High Onset Date: 03/19/14 Code (s): N17.9 - ACUTE KIDNEY FAILURE, UNSPECIFIED SNOMED Code(s): 50933315 Comment: -Secondary to Hepatorenal syndrome. -Low urine sodium. -Making urine- net negative on IV lasix 100 mg BID -Appreciate nephrology consult -Creatinine improving -Clinincally volume overloaded. -Continue octreotide. received albuminX2 -Avoid lisinopril --Continue iv lasix and spironolactone- will slowly deescalate lasix (6) Chronic pain syndrome Current Visit: No Status: Acute Code(s): G89.4 - CHRONIC PAIN SYNDROME SNOMED Code(s): 126208968 Comment: - Continue reduced dose oxycodone- 5 mg (7) History of gout Current Visit: No Status: Acute Code(s): Z87.39 - PERSONAL HISTORY OF DISEASES OF THE MS SYS AND CONN TISS SNOMED Code(s): 914508090 Comment: - Continue allopurinol- renally dose (8) Hypertension Current Visit: No Status: Acute Code(s): I10 - ESSENTIAL (PRIMARY) HYPERTENSION SNOMED Code(s): 96155428 Comment: - Bp on higher side. -Continue lasix -iv hydralazine prn (9) Peptic ulcer disease Current Visit: No Status: Acute Code(s): K27.9 - PEPTIC ULC, SITE UNSP, UNSP AC OR CHR, W/O HEMOR OR PERF SNOMED Code(s): 04134610 Comment: - has gastric nodualrity with inflamation -continue PPI. (10) TIA (transient ischemic attack) Current Visit: No Status: Acute Code(s): G45.9 - TRANSIENT CEREBRAL ISCHEMIC ATTACK, UNSPECIFIED SNOMED Code(s): 773841314 Comment: - History TIA - Continue Statin, hold ASA (11) Diabetes mellitus Current Visit: No Status: Chronic Code(s): E11.9 - TYPE 2 DIABETES MELLITUS WITHOUT COMPLICATIONS SNOMED Code(s): 17835278 Comment: - A1c is 5.1 on feb 2019 -is on insulin glargine BID at home -hold lantus. -Continue insulin lispro (12) DVT prophylaxis Current Visit: No Status: Acute Priority: Medium Onset Date: 03/19/14 Code(s): EXY2239 - SNOMED Code(s): 383714835 Comment: - No chemical DVT prophylaxis in GI bleeding - SCDs (13) DNR (do not resuscitate) Current Visit: Yes Status: Acute Comment: -discussed with patient and her . Status and Disposition: Inpatient may need rehab after dc- waiting PT input Attending: Katey Lopez Attestation Documenting Resident: Isabel Motta Supervising Physician: Katey Lopez Attending/Supervising Physician Comment: Attending Provider Addendum: I agree with resident findings in note 73F PMH GODFREY cirrhosis d/b HE, ascites, and gastric varices, HFpEF (last echo 2019 Grade 2 diastolic and EF 60%), CKD, morbid obesity, IDDM with A1C 5, HTN, gout, hx of TIA, PUD, chronic pain on senior living opiates who was admitted on 04/02 with anemia 2/2 to UGIB with evidence of LEONILA on CKD thought to be attributed ot HRS and gross volume overload. She is s/p EGD on 04/03 showing GAVE but no active bleeding and e/o gastric varicies Her late hospital course c/b HE, necessitating ICU transfer, placement of NGT for lactulose on 04/05 , transferred back out on 04/07. Interim Hx today: She is sig improved from a mental status, tolerating diet and removed NGT on Hemoglobin is 6.8 today, possibyl oozing from GAVE, already optimized on PPI, no e/o unstable active GIB, recommend 1U PRBC Continues aggressive diuresis, Cr improving, may need to back off soon #LEONILA on CKD: 2/2 to HRS from splanchnic dilatation -Octreotide SQ, Albumin x 2 days -Not needing midodrine -Perhaps beyond HRS also e/o volume overload from HFpEF, remains on IV Lasix with net goal -1-2L, may be able to dose down Lasix soon -Olvera I/O #AGMA: Lactic elevated, CTM q 6 #Decompensated cirrhosis, MELD per resident note -HE: Lactulose PO TID, if refusing we MUST know about it RN to provider communication, NGT removed today, continue rifaxin -Ascites: Lasix 100 IV BID (may down grade dosage as Cr improves), spironolactone 25mg, still grossly volume overloaded but will need to watch carefully for risk of intravascular depletion despite total body overload in a low albumin state -Varices: Start low dose nadalol., BP can handle -Workup per outpt, HCC screening per outpt -HRS: as per LEONILA #HFPEF: Appears decopensated though this may be multifactorial, d/c atenolol on d/c in facor of andolol, continue asa, statin #PUD and relatively recent UGIB: s/p 4U PRBC, stable for now -IV PPI BID -PPX covered for SBP with CTX Day 5/7 on 04/08 #IDDM: Well controlled on low dose lispro, continue for now, dose reduce lantus on d/c, likely brittle in setting of organ failure #Anemia: 2/2 to acute blood loss and ACD comped with LEONILA on CKD #HTN: Sprinolcatone, nadolol and Lasix #Gout: Alloputrinol is reanlly dosed #Chronic pain: Dose reduce opiate to 5mg BID and discusse dhtis at length with her, offered palliative in its place htough she declines, pts with cirrhosis may have up to 1gram Tylenol a day DVT PPX : Off in setting of GIB Code Status: DNR DNI Attestation: This service has been performed in part by a resident under the direction of a teaching physician.I, Katey Lopez, performed the service, or was physically present during the critical, or st portions of the service, furnished by the resident. I participated in the management of the patient.
[2019-04-09 06:50] LABS: Albumin 2.8 g/dL (3.2-5.2); BUN/Creatinine Ratio 19.2 (8-20); Calcium 8.6 mg/dL (8.6-10.3); EGFR African American 17.7 (>60); EGFR Non-African American 14.6 (>60); Globulin 2.9 g/dL (2-4); Potassium 3.5 mmol/L (3.5-5.0); Total Bilirubin 3.9 mg/dL (0.2-1.0); Total Protein 5.7 g/dL (6.4-8.9)
[2019-04-09 07:37] LABS: ABS Basophils 0.1 10^3/ul (0-0.2); ABS Eosinophils 1.1 10^3/ul (0-0.6); ABS Lymphocytes 1.2 10^3/ul (1.0-4.8); Eosinophil % 11.5 %; Lymphocyte % 13.1 %; Nucleated Red Blood Cells % 0.1
[2019-04-09] MEDS: Insulin LISPRO* 1 UNITS UNIT SUBCUT SCH ×4 (08:54→21:45)
[2019-04-09] MEDS: Octreotide Acetate* 100 MCG/ML 1 ML VIAL SUBCUT SCH ×3 (08:55→21:44)
[2019-04-09] MEDS: Spironolactone TAB* 25 MG PO SCH (08:57)
[2019-04-09] MEDS: RiFAXimin* 550 MG TAB PO SCH ×2 (08:57→21:42)
[2019-04-09] MEDS: Allopurinol TAB* 100 MG PO SCH (08:57)
[2019-04-09] MEDS: Nadolol TAB* 40 MG PO SCH (08:58)
[2019-04-09] MEDS: Furosemide IV* 10 MG/ML VIAL (40 MG) IV SLOW PU SCH ×2 (09:02→21:43)
[2019-04-09] MEDS: Pantoprazole IV* 40 MG IV SCH ×2 (09:02→21:44)
[2019-04-09] MEDS: cefTRIAXone(*) 1 GM in NS 0.9% 50 ML* 50 ML IVPB SCH (09:03)
[2019-04-09] MEDS: Nystatin CREAM* 15 GM TUBE TOPICAL SCH ×2 (09:13→21:56)
[2019-04-09] MEDS ORDERED: Potassium Chlor TAB* 20 MEQ TAB.ER PO ONE (09:33)
[2019-04-09] MEDS: oxyCODONE TAB* 5 MG TAB PO PRN (21:41)
[2019-04-09 22:52] LABS: ABS Basophils 0.1 10^3/ul (0-0.2); ABS Eosinophils 1.3 10^3/ul (0-0.6); ABS Lymphocytes 1.4 10^3/ul (1.0-4.8); ABS Monocytes 1.3 10^3/ul (0-0.8); ABS Neutrophils 6.2 10^3/ul (1.5-7.7); Eosinophil % 12.5 %; Hematocrit 25 % (35-47); Hemoglobin 8.5 g/dL (12.0-16.0); Lymphocyte % 13.9 %; Mean Corpuscular HGB Conc 34 g/dL (31-36); Mean Corpuscular Hemoglobin 33 pg (27-31); Mean Corpuscular Volume 96 fL (80-97); Mean Platelet Volume 9.1 fL (7.4-10.4); Nucleated Red Blood Cells % 0.3; Platelet Count 70 10^3/uL (150-450); Red Blood Count 2.62 10^6 /uL (3.70-4.87); Red Cell Distribution Width 20 % (10-15); White Blood Count 10.3 10^3/uL (3.5-10.8)
[2019-04-10 06:02] LABS: ABS Basophils 0.1 10^3/ul (0-0.2); ABS Eosinophils 1.4 10^3/ul (0-0.6); ABS Lymphocytes 1.4 10^3/ul (1.0-4.8); ABS Monocytes 1.2 10^3/ul (0-0.8); ABS Neutrophils 5.7 10^3/ul (1.5-7.7); Eosinophil % 14.1 %; Hematocrit 25 % (35-47); Hemoglobin 8.4 g/dL (12.0-16.0); Lymphocyte % 14.8 %; Mean Corpuscular HGB Conc 34 g/dL (31-36); Mean Corpuscular Hemoglobin 33 pg (27-31); Mean Corpuscular Volume 97 fL (80-97); Nucleated Red Blood Cells % 0.4; Platelet Count 77 10^3/uL (150-450); Red Blood Count 2.59 10^6 /uL (3.70-4.87); Red Cell Distribution Width 21 % (10-15); White Blood Count 9.8 10^3/uL (3.5-10.8)
[2019-04-10 06:17] LABS: BUN/Creatinine Ratio 20.4 (8-20); Calcium 8.4 mg/dL (8.6-10.3); EGFR African American 18.9 (>60); EGFR Non-African American 15.7 (>60); Potassium 3.4 mmol/L (3.5-5.0)
[2019-04-10] MEDS ORDERED: Potassium Chlor TAB* 20 MEQ TAB.ER PO ONE (07:43)
[2019-04-10] MEDS: Insulin LISPRO* 1 UNITS UNIT SUBCUT SCH ×4 (09:50→21:44)
[2019-04-10 09:55] LABS: Magnesium 1.6 mg/dL (1.9-2.7)
[2019-04-10] MEDS: cefTRIAXone(*) 1 GM in NS 0.9% 50 ML* 50 ML IVPB SCH (10:48)
[2019-04-10] MEDS: Nadolol TAB* 40 MG PO SCH (10:49)
[2019-04-10] MEDS: Spironolactone TAB* 25 MG PO SCH (10:50)
[2019-04-10] MEDS: RiFAXimin* 550 MG TAB PO SCH ×2 (10:50→21:46)
[2019-04-10] MEDS: Allopurinol TAB* 100 MG PO SCH (10:50)
[2019-04-10] MEDS: Nystatin CREAM* 15 GM TUBE TOPICAL SCH (10:51)
[2019-04-10] MEDS: Furosemide IV* 10 MG/ML VIAL (40 MG) IV SLOW PU SCH ×2 (10:51→21:43)
[2019-04-10] MEDS: Pantoprazole IV* 40 MG IV SCH ×2 (10:51→21:44)
[2019-04-10] MEDS: Octreotide Acetate* 100 MCG/ML 1 ML VIAL SUBCUT SCH ×3 (10:52→21:44)
--- NOTE | 2019-04-10 11:23 | PN ---
Subjective Date of Service: 04/10/19 Interval History: HD 8 on 04/09 Transferred from ICU on 04/07 Overnight: No acute overnight events Vitals stable Received one more unit of PRBC yesterday. Patient denies any symptom at present. Had 2-3 BM yesterday. Net negative of 3L HAving breakfast. Objective Active Medications: Acetaminophen (Tylenol Tab*) 650 mg PO BID PRN PRN Reason: PAIN - MILD Albuterol/Ipratropium (Duoneb (Albuterol 2.5 Mg/Ipratropium 0.5 Mg)) 1 neb INH Q4H PRN PRN Reason: SHORTNESS OF BREATH Allopurinol (Zyloprim Tab*) 100 mg PO DAILY [facility] Last Admin: 04/10/19 10:50 Dose: 100 mg Dextrose (D50w Syringe 50 Ml*) 12.5 gm IV PUSH .FOR FS < 60 - SS PRN PRN Reason: FS < 60 Furosemide (Lasix Iv*) 100 mg IV SLOW PU Q12H [facility] Last Admin: 04/10/19 10:51 Dose: 100 mg Heparin Sodium (Porcine) (Heparin Flush Picc/Ml/Cvc(*)) 1 ml FLUSH 0600,1800 [facility]; Protocol Last Admin: 04/10/19 05:31 Dose: 3 ml Ceftriaxone Sodium 1 gm/ (Sodium Chloride) 50 mls @ 100 mls/hr IVPB Q24H [facility] Last Admin: 04/10/19 10:48 Dose: 100 mls/hr Insulin Human Lispro (Humalog*) 0 units SUBCUT ACHS [facility]; Protocol Last Admin: 04/10/19 09:50 Dose: 1 units Lactulose (Lactulose*) 30 ml PO TID [facility] Last Admin: 04/10/19 10:48 Dose: 30 ml Nadolol (Corgard Tab*) 20 mg PO DAILY [facility] Last Admin: 04/10/19 10:49 Dose: 20 mg Nystatin (Nystatin Cream*) 1 applic TOPICAL BID [facility] Last Admin: 04/10/19 10:51 Dose: 1 applic Octreotide Acetate (Octreotide Acetate*) 100 mcg SUBCUT TID [facility] Last Admin: 04/10/19 10:52 Dose: 100 mcg Ondansetron HCl (Zofran Inj*) 4 mg IV Q6H PRN PRN Reason: NAUSEA Oxycodone HCl (Roxycodone Tab*) 5 mg PO BID PRN PRN Reason: PAIN - SEVERE Last Admin: 04/09/19 21:41 Dose: 5 mg Pantoprazole Sodium (Protonix Iv*) 40 mg IV Q12H [facility] Last Admin: 04/10/19 10:51 Dose: 40 mg Rifaximin (Xifaxan*) 550 mg PO BID [facility] Last Admin: 04/10/19 10:50 Dose: 550 mg Spironolactone (Aldactone Tab*) 25 mg PO DAILY [facility] Last Admin: 04/09/19 08:57 Dose: 25 mg Vital Signs - 8 hr 04/10/19 04/10/19 07:17 08:00 Temperature 97.3 F 97.5 F Pulse Rate 58 58 Respiratory 18 16 Rate Blood Pressure 100/34 136/52 (mmHg) O2 Sat by Pulse 97 96 Oximetry Oxygen Devices in Use Now: None Exam: Patient is sitting comfortably in bed with no acute distress. HEENT: Redness on right conjunctiva; bruises on face and neck. Chest: Line in place. clear with no added sound heart: S1/S2 heard with murmur Abdomen: Distended and nontender. Pitting edema 3+. Coarse and thickened skin on lower abdomen. Normal BS heard Extremities: Scattered bruises on upper extremity. LE has chronic pigmentation and pitting edema upto thighs and overgrown toenails. Neuro: Alert, oriented and coperative. No astrexis noted. Result Diagrams: 04/10/19 05:50 04/10/19 05:50 Microbiology and Other Data: Microbiology 04/02/19 17:09 Stool Occult Blood (MALIHA) - Final Stool Assess/Plan/Problems-Billing Assessment: 73 y/o female with a PMH for Decompensated CirrhosisX3 secondary to GODFREY, CKD, DM II, HTN, TIA, presented from nephrology clinic because of LEONILA and anemia. Found to have decompensated cirrhosis, LEONILA 2/2 HRS, Anemia 2/2 upper GI bleed 2/ 2 to varices/gastritis- s/p 5 U PRBC. Hospital course complicated by hepatic encephalopathy requiring ICU stay with placement of NG tube for lactulose. removed NG tube on 04/08. treating for LEONILA, HRS and HE. - Patient Problems (1) Decompensated hepatic cirrhosis Current Visit: Yes Status: Acute Code(s): K72.90 - HEPATIC FAILURE, UNSPECIFIED WITHOUT COMA SNOMED Code(s): 241274244 Comment: -Decompensated cirrhosis- Portal HTN, HE, HRS -secondary to GODFREY. -MELD-Na score is 29 which carries 27-32% risk of mortality in 90 days. -Portal HTN- Nadolol(low- dose) -HE: lactulose, rifaximin -HRS: octreotride, IV lasix for volume overload; already received 2 doses of albumin -SBP prophylaxis: Iv ceftriaxone(day 7 on 04/10)- for total of 7 days. -appreciate GI input -replaced K (2) Anemia Current Visit: No Status: Acute Code(s): D64.9 - ANEMIA, UNSPECIFIED SNOMED Code(s): 790686378 Comment: -s/p 5U PRBC - from gastric varices and PUD - PPI IV BID - Octreotide for HRS -HB today is 8.4; low but stable -will monitor H&H (3) High anion gap metabolic acidosis Current Visit: Yes Status: Acute Code(s): E87.2 - ACIDOSIS SNOMED Code(s) : 69217348 Comment: -resolved -could be from LEONILA or from starvation acidosis or from decreased clearance of lactic acid. -Lactic acid normal (4) Heart failure with preserved ejection fraction Current Visit: Yes Status: Acute Code(s): I50.30 - UNSPECIFIED DIASTOLIC ( CONGESTIVE) HEART FAILURE SNOMED Code(s): 824763559 Comment: -Echo in 12/2018 shows Ef of 60-65% with grade 2 diastolic dysfunction. -Mild dilatation of atrium. -Mild -Has patent foramen ovale. -Is volume overloaded but likely from LEONILA and cirrhosis; less likely from HF (5) Acute kidney injury Current Visit: No Status: Acute Priority: High Onset Date: 03/19/14 Code (s): N17.9 - ACUTE KIDNEY FAILURE, UNSPECIFIED SNOMED Code(s): 80513019 Comment: -Secondary to Hepatorenal syndrome. -Low urine sodium. -Making urine- net negative of 3 L on IV lasix 100 mg BID -Appreciate nephrology consult -Creatinine improving -Clinically volume overloaded. -Continue octreotide. received albuminX2 -Avoid lisinopril --Continue iv lasix and spironolactone- will slowly deescalate lasix (6) Chronic pain syndrome Current Visit: No Status: Acute Code(s): G89.4 - CHRONIC PAIN SYNDROME SNOMED Code(s): 580178437 Comment: - Continue reduced dose oxycodone- 5 mg (7) History of gout Current Visit: No Status: Acute Code(s): Z87.39 - PERSONAL HISTORY OF DISEASES OF THE MS SYS AND CONN TISS SNOMED Code(s): 292041079 Comment: - Continue allopurinol- renally dosed (8) Hypertension Current Visit: No Status: Acute Code(s): I10 - ESSENTIAL (PRIMARY) HYPERTENSION SNOMED Code(s): 90463461 Comment: -Continue lasix -iv hydralazine prn (9) Peptic ulcer disease Current Visit: No Status: Acute Code(s): K27.9 - PEPTIC ULC, SITE UNSP, UNSP AC OR CHR, W/O HEMOR OR PERF SNOMED Code(s): 68008029 Comment: - has gastric nodualrity with inflamation -continue PPI. (10) TIA (transient ischemic attack) Current Visit: No Status: Acute Code(s): G45.9 - TRANSIENT CEREBRAL ISCHEMIC ATTACK, UNSPECIFIED SNOMED Code(s): 568842887 Comment: - History TIA - Continue Statin, hold ASA (11) Diabetes mellitus Current Visit: No Status: Chronic Code(s): E11.9 - TYPE 2 DIABETES MELLITUS WITHOUT COMPLICATIONS SNOMED Code(s): 83386411 Comment: - A1c is 5.1 on feb 2019 -is on insulin glargine BID at home -hold lantus. -Continue insulin lispro (12) DVT prophylaxis Current Visit: No Status: Acute Priority: Medium Onset Date: 03/19/14 Code(s): VKR7538 - SNOMED Code(s): 545559287 Comment: - No chemical DVT prophylaxis in GI bleeding - SCDs (13) DNR (do not resuscitate) Current Visit: Yes Status: Acute Comment: -discussed with patient and her . Status and Disposition: Inpatient may need rehab after dc- waiting PT input Attending: Rosio Finnegan Attestation Documenting Resident: Isabel Motta Supervising Physician: Rosio Finnegan Attending/Supervising Physician Comment: Attending Provider Addendum: I agree with resident findings in note. Ms Dirk Hankins is a 73yo F with a PMHx of GODFREY cirrhosis complicated by hepatic encephalopathy, ascites, gastric varices, HFpEF (last echo 201819 Grade 2 diastolic and EF 60%), CKD, morbid obesity, IDDM with A1C 5, HTN, gout, hx of TIA, PUD, chronic pain on long term care social worker opiates who was admitted on 04/02 with anemia 2/2 to UGIB with evidence of LEONILA on CKD thought to be attributed ot HRS and gross volume overload. She is s/p EGD on 04/03 showing GAVE but no active bleeding and e/o gastric varicies Her hospital course was c/b HE, necessitating ICU transfer, placement of NGT for lactulose on 04/05 , transferred back out on 04/07. #LEONILA on CKD: 2/ to hepatorenal syndrome from splanchnic dilatation -Continue Octreotide -Not needing midodrine -Perhaps beyond hepatorenal syndrome there is also e/o volume overload from HFpEF, remains on IV Lasix. As her UOP remains steady and her renal function is improving, continue 100mg IV BID. -[place]a I/O #Decompensated cirrhosis -HE: Lactulose PO TID, if refusing we MUST know about it RN to provider communication, NGT removed today, continue rifaximin -Ascites: Lasix 100 IV BID (may down grade dosage as Cr improves), spironolactone 25mg, still grossly volume overloaded but will need to watch carefully for risk of intravascular depletion despite total body overload in a low albumin state. -Varices: Continue low dose nadalol. -HCC screening as outpt. -HRS: as per LEONILA #HFpEF: Appears decopensated though this may be multifactorial, d/c atenolol on d/c in favor of nadolol, continue asa, statin #PUD and relatively recent UGIB: s/p 5U PRBC. -IV PPI BID -PPX covered for SBP with CTX Day 09/01 #IDDM: Well controlled on low dose lispro, continue for now, dose reduce lantus on d/c, likely brittle in setting of organ failure #Anemia: 2/2 to acute blood loss and anemia of CKD #HTN: Sprinolcatone, nadolol and Lasix #Gout: Allopurinol is renally dosed #Chronic pain: Continue reduced dose oxycodone 5mg BID. Offered palliative in its place though she declines, pts with cirrhosis may have up to 1gram Tylenol a day DVT PPX : Off in setting of GIB Code Status: DNR DNI Attestation: This service has been performed in part by a resident under the direction of a teaching physician.I, Rosio Finnegan, performed the service, or was physically present during the critical, or st portions of the service, furnished by the resident. I participated in the management of the patient.
--- NOTE | 2019-04-10 15:48 | PN ---
Progress Note - Progress Note Date of Service: 04/10/19 Note: Inpatient Nephrology Follow-up Note: Performed by Dr. Win Beard, [facility] Nephrology 04/10/2019 73 YO WF HRS, LEONILA on CK, improved persistently over the last few days on IV Lasix Peak BUN/sCr 52/5.41~03/27th Hepatic Encephalopathy. Improved Portal HTN, Ascites & Portal Gastropathy Anemia s/p 5 u PRBCs. Hb dropped again 6.8/~04/09 s/p 1 U PRBCs, today's Hb 8.5/25~04/10 Cryptogenic Cirrhosis Fluid overload on IV Lasix 100 mg BID & Spironolactone 25 mg qd since 04/05 BUN/sCr: 57/4.63~04/04/2019 61/4.37~04/05/2019 62/4.09~04/06/2019 61/3.68~04/07/2019 61/3.42~04/08/2019 60/3.12~04/09/2019 60/2.94~04/10/2019 Today comfortable, eating and drinking, alert & oriented 1,400 cc~04/04 2,375 cc~04/05 4,400 cc~04/06 3,895 cc~04/07 1,950 cc~04/08 4,000 cc~04/09 4,900 cc~04/10 Hospital Meds: Acetaminophen Albuterol/Ipratropium Allopurinol Furosemide 100 IV BID Ceftriaxone Insulin Human Lispro Lactulose Nadolol Nystatin Octreotide Ondansetron Oxycodone Pantoprazole Rifaximin Spironolactone 25 mg qd Objective: Vital Signs Vital Signs Temp 97.3 F 04/10/19 10:48 Pulse 58 04/10/19 10:48 Resp 21 04/10/19 10:48 BP 121/42 04/10/19 10:48 Pulse Ox 96 04/10/19 10:48 10 Point multi system exam: Constitutional Alert Oriented Abdomen Soft Abdomen No Ascites, Huge pannus Heart: NSR, + LE Edema, No murmur Lungs: Clear to auscultation Extremities: + edema, no rash Skin no rash Hem/Lymph: no palpable lymph nodes Musculoskeletal: No joint swelling Laboratory Reviewed ABG pH 7.37 (7.35-7.45) 04/05/19 02:45 ABG HCO3 18.1 mmol/L (19-31) L 04/05/19 02:45 Sodium 133 mmol/L (135-145) L 04/10/19 05:50 Potassium 3.4 mmol/L (3.5-5.0) L 04/10/19 05:50 BUN 60 mg/dL (6-24) H 04/10/19 05:50 Creatinine 2.94 mg/dL (0.51-0.95) H 04/10/19 05:50 Calcium 8.4 mg/dL (8.6-10.3) L 04/10/19 05:50 Magnesium 1.6 mg/dL (1.9-2.7) L 04/10/19 05:50 AST 36 U/L (13-39) 04/09/19 06:20 ALT 15 U/L (7-52) 04/09/19 06:20 A/P LEONILA on CKD. Non Oliguric. UOP is excellent. LEONILA keeps improving I/Os in negative balance. Continue Lasix 100 mg BID as long as sCr keeps getting better and UOP optimal. Replace K & Mg. Keep K >4.0 & Mg >1.8
[2019-04-10] MEDS ORDERED: Magnesium Sulfate 2 GM IV* 2 GM/50 ML BAG IVPB ONE (15:54)
[2019-04-10 22:39] LABS: BUN/Creatinine Ratio 22.2 (8-20); Calcium 7.3 mg/dL (8.6-10.3); EGFR African American 22.1 (>60); EGFR Non-African American 18.3 (>60); Potassium 3.2 mmol/L (3.5-5.0)
[2019-04-11] MEDS: Nystatin CREAM* 15 GM TUBE TOPICAL SCH ×3 (01:04→22:49)
[2019-04-11] MEDS ORDERED: Potassium Chloride* LIQUID 20 MEQ/15 ML UDC PO ONE (04:03)
[2019-04-11 05:35] LABS: ABS Basophils 0.1 10^3/ul (0-0.2); ABS Eosinophils 0.9 10^3/ul (0-0.6); ABS Lymphocytes 1.2 10^3/ul (1.0-4.8); ABS Monocytes 1.1 10^3/ul (0-0.8); ABS Neutrophils 5.1 10^3/ul (1.5-7.7); Hematocrit 25 % (35-47); Hemoglobin 8.3 g/dL (12.0-16.0); Lymphocyte % 13.7 %; Mean Corpuscular HGB Conc 34 g/dL (31-36); Mean Corpuscular Hemoglobin 33 pg (27-31); Mean Corpuscular Volume 96 fL (80-97); Nucleated Red Blood Cells % 0.3; Platelet Count 79 10^3/uL (150-450); Red Blood Count 2.55 10^6 /uL (3.70-4.87); Red Cell Distribution Width 22 % (10-15); White Blood Count 8.4 10^3/uL (3.5-10.8)
[2019-04-11 05:48] LABS: BUN/Creatinine Ratio 21.8 (8-20); Calcium 8.6 mg/dL (8.6-10.3); EGFR African American 19.6 (>60); EGFR Non-African American 16.2 (>60); Potassium 3.7 mmol/L (3.5-5.0)
[2019-04-11] MEDS ORDERED: Potassium Chlor TAB* 20 MEQ TAB.ER PO ONE (06:49)
[2019-04-11 07:09] LABS: Magnesium 1.8 mg/dL (1.9-2.7)
[2019-04-11] MEDS ORDERED: Magnesium Sulfate 2 GM IV* 2 GM/50 ML BAG IVPB ONE (07:31)
[2019-04-11] MEDS: Pantoprazole IV* 40 MG IV SCH ×2 (10:10→22:23)
[2019-04-11] MEDS: Insulin LISPRO* 1 UNITS UNIT SUBCUT SCH ×4 (10:10→22:24)
[2019-04-11] MEDS: Octreotide Acetate* 100 MCG/ML 1 ML VIAL SUBCUT SCH ×4 (10:11→22:46)
[2019-04-11] MEDS: oxyCODONE TAB* 5 MG TAB PO PRN (10:11)
[2019-04-11] MEDS: Furosemide IV* 10 MG/ML VIAL (40 MG) IV SLOW PU SCH ×2 (10:11→22:22)
[2019-04-11] MEDS: Nadolol TAB* 40 MG PO SCH (10:11)
[2019-04-11] MEDS: RiFAXimin* 550 MG TAB PO SCH ×2 (10:11→22:47)
[2019-04-11] MEDS: Spironolactone TAB* 25 MG PO SCH (10:12)
[2019-04-11] MEDS: Allopurinol TAB* 100 MG PO SCH (10:12)
--- NOTE | 2019-04-11 11:21 | PN ---
Subjective Date of Service: 04/11/19 Interval History: HD 9 on 04/10 Transferred from ICU on 04/07 Overnight: Had confusion overnight; labs repeated and was normal Vitals stable Patient is alert and oriented to time, place and person. SHe is a very pleasant lady and denies any pain, nausea and vomiting. Having BM; 2-3 loose No confusion noticed. Objective Active Medications: Acetaminophen (Tylenol Tab*) 650 mg PO BID PRN PRN Reason: PAIN - MILD Albuterol/Ipratropium (Duoneb (Albuterol 2.5 Mg/Ipratropium 0.5 Mg)) 1 neb INH Q4H PRN PRN Reason: SHORTNESS OF BREATH Allopurinol (Zyloprim Tab*) 100 mg PO DAILY [facility] Last Admin: 04/11/19 10:12 Dose: 100 mg Dextrose (D50w Syringe 50 Ml*) 12.5 gm IV PUSH .FOR FS < 60 - SS PRN PRN Reason: FS < 60 Furosemide (Lasix Iv*) 100 mg IV SLOW PU Q12H [facility] Last Admin: 04/11/19 10:11 Dose: 100 mg Heparin Sodium (Porcine) (Heparin Flush Picc/Ml/Cvc(*)) 1 ml FLUSH 0600,1800 [facility]; Protocol Last Admin: 04/11/19 05:10 Dose: 1 ml Insulin Human Lispro (Humalog*) 0 units SUBCUT ACHS [facility]; Protocol Last Admin: 04/11/19 10:10 Dose: 4 units Lactulose (Lactulose*) 30 ml PO TID [facility] Last Admin: 04/11/19 10:17 Dose: 30 ml Nadolol (Corgard Tab*) 20 mg PO DAILY [facility] Last Admin: 04/11/19 10:11 Dose: 20 mg Nystatin (Nystatin Cream*) 1 applic TOPICAL BID [facility] Last Admin: 04/11/19 10:12 Dose: 1 applic Octreotide Acetate (Octreotide Acetate*) 100 mcg SUBCUT TID [facility] Last Admin: 04/11/19 10:11 Dose: 100 mcg Ondansetron HCl (Zofran Inj*) 4 mg IV Q6H PRN PRN Reason: NAUSEA Oxycodone HCl (Roxycodone Tab*) 5 mg PO BID PRN PRN Reason: PAIN - SEVERE Last Admin: 04/11/19 10:11 Dose: 5 mg Pantoprazole Sodium (Protonix Iv*) 40 mg IV Q12H [facility] Last Admin: 04/11/19 10:10 Dose: 40 mg Rifaximin (Xifaxan*) 550 mg PO BID [facility] Last Admin: 04/11/19 10:11 Dose: 550 mg Spironolactone (Aldactone Tab*) 25 mg PO DAILY [facility] Last Admin: 04/11/19 10:12 Dose: 25 mg Vital Signs - 8 hr 04/11/19 04/11/19 04/11/19 03:26 07:20 10:11 Temperature 97.6 F 98.3 F Pulse Rate 57 63 Respiratory 18 18 16 Rate Blood Pressure 131/56 147/48 (mmHg) O2 Sat by Pulse 96 96 Oximetry Oxygen Devices in Use Now: None Exam: Patient is sitting comfortably in bed with no acute distress. HEENT: Redness on right conjunctiva; bruises on face and neck. Chest: clear with no added sound heart: S1/S2 heard with murmur Abdomen: Distended and nontender. Pitting edema 3+. Coarse and thickened skin on lower abdomen. Normal BS heard Extremities: Scattered bruises on upper extremity. LE has chronic pigmentation and pitting edema upto thighs and overgrown toenails. mIdline in LUE. Neuro: Alert, oriented and coperative. No astrexis noted. Result Diagrams: 04/13/19 05:21 04/13/19 05:21 Microbiology and Other Data: Microbiology 04/02/19 17:09 Stool Occult Blood (MALIHA) - Final Stool Assess/Plan/Problems-Billing Assessment: 73 y/o female with a PMH for Decompensated CirrhosisX3 secondary to GODFREY, CKD, DM II, HTN, TIA, presented from nephrology clinic because of LEONILA and anemia. Found to have decompensated cirrhosis, LEONILA 2/2 HRS, Anemia 2/2 upper GI bleed 2/ 2 to varices/gastritis- s/p 5 U PRBC. Hospital course complicated by hepatic encephalopathy requiring ICU stay with placement of NG tube for lactulose. removed NG tube on 04/08. treating for LEONILA, HRS and HE. - Patient Problems (1) Decompensated hepatic cirrhosis Comment: -Decompensated cirrhosis- Portal HTN, HE, HRS -secondary to GODFREY. -MELD-Na score is 29 which carries 27-32% risk of mortality in 90 days. -Portal HTN- Nadolol(low- dose) -HE: lactulose, rifaximin -HRS: octreotride, IV lasix for volume overload; already received 2 doses of albumin -SBP prophylaxis: Iv ceftriaxone(day 7 on 04/10)- for total of 7 days; completed on 04/10. -appreciate GI input -replaced K and Mg (2) Anemia Comment: -s/p 5U PRBC - from gastric varices and PUD - PPI IV BID - Octreotide for HRS -HB today is 7.9; low but stable -will monitor H&H (3) High anion gap metabolic acidosis Current Visit: Yes Status: Acute Code(s): E87.2 - ACIDOSIS SNOMED Code(s) : 83946411 Comment: -resolved -could be from LEONILA or from starvation acidosis or from decreased clearance of lactic acid. -Lactic acid normal (4) Heart failure with preserved ejection fraction Comment: -Echo in 12/2018 shows Ef of 60-65% with grade 2 diastolic dysfunction. -Mild dilatation of atrium. -Mild -Has patent foramen ovale. -Is volume overloaded but likely from LEONILA and cirrhosis; less likely from HF (5) Acute kidney injury Comment: -Secondary to Hepatorenal syndrome. -Low urine sodium. -Making urine- net negative of 4 L on IV lasix 100 mg BID -Appreciate nephrology consult -Creatinine improving -Clinically volume overloaded. -Continue octreotide(started from 04/03- total 14 days). received albuminX2 -Avoid lisinopril --Continue iv lasix and spironolactone (6) Chronic pain syndrome Comment: - Continue reduced dose oxycodone- 5 mg -has chronic back and knee pain (7) History of gout Comment: - Continue allopurinol- renally dosed (8) Hypertension Comment: -Continue lasix -iv hydralazine prn (9) Peptic ulcer disease Comment: - has gastric nodualrity with inflamation -continue PPI. (10) TIA (transient ischemic attack) Comment: - History TIA - Continue Statin, hold ASA (11) Diabetes mellitus Comment: - A1c is 5.1 on feb 2019 -is on insulin glargine BID at home -hold lantus. -Continue insulin lispro (12) DVT prophylaxis Comment: - No chemical DVT prophylaxis in GI bleeding - SCDs (13) DNR (do not resuscitate) Comment: -discussed with patient and her . Status and Disposition: Inpatient may need rehab after dc- waiting PT input Attending: Cindy Husain Attestation Documenting Resident: Isabel Motta Supervising Physician: Cindy Husain Attending/Supervising Physician Comment: Of note, pt does not have HRS, as she is having an excellent response to IV diuretics. Attestation: This service has been performed in part by a resident under the direction of a teaching physician.I, Cindy Husain, performed the service, or was physically present during the critical, or st portions of the service, furnished by the resident. I participated in the management of the patient.
[2019-04-11 14:24] LABS: Calcium 8.9 mg/dL (8.6-10.3); Magnesium 2.1 mg/dL (1.9-2.7)
[2019-04-11 14:30] LABS: BUN/Creatinine Ratio 22.3 (8-20); EGFR African American 20.5 (>60)
--- NOTE | 2019-04-11 14:32 | PN ---
Progress Note - Progress Note Date of Service: 04/11/19 Note: Inpatient Nephrology Follow-up Note: Performed by Dr. Win Beard, [facility] Nephrology 04/11/2019 73 YO WF HRS, LEONILA on CKD, s/p IV Lasix Peak BUN/sCr 52/5.41~03/27 Hepatic Encephalopathy. Improved Portal HTN, Ascites & Portal Gastropathy Anemia s/p 5 u PRBCs. Hb dropped again 6.8/~04/09 s/p 1 U PRBCs, but Hb stable since yesterday 8.3 25~04/11 was 8.5/25~04/10 Cryptogenic Cirrhosis Fluid overload on IV Lasix 100 mg BID & Spironolactone 25 mg qd since 04/05 BUN/sCr: 57/4.63~04/04/2019 61/4.37~04/05/2019 62/4.09~04/06/2019 61/3.68~04/07/2019 61/3.42~04/08/2019 60/3.12~04/09/2019 60/2.94~04/10/2019 57/2.57~04/10/2019 62/2.85~04/11/2019 Today comfortable, eating and drinking, alert & oriented, feels great. 1,400 cc~04/04 2,375 cc~04/05 4,400 cc~04/06 3,895 cc~04/07 1,950 cc~04/08 4,000 cc~04/09 4,900 cc~04/10 6,200 cc~04/11 Hospital Meds: Acetaminophen Albuterol/Ipratropium Allopurinol Furosemide 100 IV BID Heparin Sodium Insulin Human Lispro Lactulose Nadolol Nystatin Octreotide Ondansetron Oxycodone Pantoprazole Rifaximin Spironolactone 25 qd Objective: Vital Signs Temp Pulse Resp BP Pulse Ox 98.4 F 59 16 142/57 96 04/11/19 10:55 04/11/19 10:55 04/11/19 12:30 04/11/19 10:55 04/11/19 10:55 10 Point multi system exam: Constitutional Alert Oriented Abdomen Soft Abdomen No Ascites, Huge pannus Heart: NSR, + LE Edema, No murmur Lungs: Clear to auscultation Extremities: + edema, no rash Skin no rash Hem/Lymph: no palpable lymph nodes Musculoskeletal: No joint swelling Laboratory Reviewed ABG pH 7.37 (7.35-7.45) 04/05/19 02:45 ABG HCO3 18.1 mmol/L (19-31) L 04/05/19 02:45 Sodium 134 mmol/L (135-145) L 04/11/19 13:30 Potassium 4.0 mmol/L (3.5-5.0) 04/11/19 13:30 BUN 61 mg/dL (6-24) H 04/11/19 13:30 Creatinine 2.74 mg/dL (0.51-0.95) H 04/11/19 13:30 Calcium 8.9 mg/dL (8.6-10.3) 04/11/19 13:30 Magnesium 2.1 mg/dL (1.9-2.7) 04/11/19 13:30 AST 36 U/L (13-39) 04/09/19 06:20 ALT 15 U/L (7-52) 04/09/19 06:20 A/P LEONILA on CKD, improving 2/2 HRS. Non Oliguric. UOP is excellent. sCr slightly worse. Advise 24 Hr break from IV Lasix and restart 60 mg IV BID from tomorrow K & Mg Ok
[2019-04-12 06:40] LABS: ABS Basophils 0.1 10^3/ul (0-0.2); ABS Eosinophils 0.9 10^3/ul (0-0.6); ABS Lymphocytes 1.2 10^3/ul (1.0-4.8); ABS Neutrophils 4.7 10^3/ul (1.5-7.7); Hematocrit 23 % (35-47); Hemoglobin 7.9 g/dL (12.0-16.0); Lymphocyte % 14.8 %; Mean Corpuscular HGB Conc 35 g/dL (31-36); Mean Corpuscular Hemoglobin 33 pg (27-31); Mean Corpuscular Volume 95 fL (80-97); Mean Platelet Volume 9.1 fL (7.4-10.4); Nucleated Red Blood Cells % 0.2; Platelet Count 72 10^3/uL (150-450); Red Blood Count 2.37 10^6 /uL (3.70-4.87); Red Cell Distribution Width 21 % (10-15); White Blood Count 7.8 10^3/uL (3.5-10.8)
[2019-04-12 06:45] LABS: Calcium 8.5 mg/dL (8.6-10.3); Magnesium 1.9 mg/dL (1.9-2.7); Potassium 3.9 mmol/L (3.5-5.0)
[2019-04-12 06:50] LABS: BUN/Creatinine Ratio 23.7 (8-20); EGFR African American 21.3 (>60); EGFR Non-African American 17.6 (>60)
[2019-04-12] MEDS ORDERED: Potassium Chlor TAB* 20 MEQ TAB.ER PO ONE (07:05)
[2019-04-12] MEDS: Spironolactone TAB* 25 MG PO SCH (09:16)
[2019-04-12] MEDS: RiFAXimin* 550 MG TAB PO SCH ×2 (09:16→22:12)
[2019-04-12] MEDS: Insulin LISPRO* 1 UNITS UNIT SUBCUT SCH ×4 (09:16→22:12)
[2019-04-12] MEDS: Allopurinol TAB* 100 MG PO SCH (09:16)
[2019-04-12] MEDS: Nadolol TAB* 40 MG PO SCH (09:17)
[2019-04-12] MEDS: Furosemide IV* 10 MG/ML VIAL (40 MG) IV SLOW PU SCH ×2 (09:17→22:02)
[2019-04-12] MEDS: Octreotide Acetate* 100 MCG/ML 1 ML VIAL SUBCUT SCH ×3 (09:17→22:00)
[2019-04-12] MEDS: Pantoprazole IV* 40 MG IV SCH ×2 (09:18→22:02)
[2019-04-12] MEDS: Nystatin CREAM* 15 GM TUBE TOPICAL SCH ×2 (09:18→22:16)
--- NOTE | 2019-04-12 09:27 | PN ---
Subjective Date of Service: 04/12/19 Interval History: HD 10 on 04/11 Transferred from ICU on 04/07 Overnight: No acute events Vitals stable Patient seen and examined at bedside. Patient is very pleasant and is alert and oriented. She had >3 BM yesterday. Net negative of 4 L; creatinine improving Working well with PT; improving day by day Objective Active Medications: Acetaminophen (Tylenol Tab*) 650 mg PO BID PRN PRN Reason: PAIN - MILD Albuterol/Ipratropium (Duoneb (Albuterol 2.5 Mg/Ipratropium 0.5 Mg)) 1 neb INH Q4H PRN PRN Reason: SHORTNESS OF BREATH Allopurinol (Zyloprim Tab*) 100 mg PO DAILY [facility] Last Admin: 04/12/19 09:16 Dose: 100 mg Dextrose (D50w Syringe 50 Ml*) 12.5 gm IV PUSH .FOR FS < 60 - SS PRN PRN Reason: FS < 60 Furosemide (Lasix Iv*) 100 mg IV SLOW PU Q12H [facility] Last Admin: 04/12/19 09:17 Dose: 100 mg Heparin Sodium (Porcine) (Heparin Flush Picc/Ml/Cvc(*)) 1 ml FLUSH 0600,1800 [facility]; Protocol Last Admin: 04/11/19 23:02 Dose: 1 ml Insulin Human Lispro (Humalog*) 0 units SUBCUT ACHS [facility]; Protocol Last Admin: 04/12/19 09:16 Dose: 2 units Lactulose (Lactulose*) 30 ml PO TID [facility] Last Admin: 04/12/19 09:16 Dose: 30 ml Nadolol (Corgard Tab*) 20 mg PO DAILY [facility] Last Admin: 04/12/19 09:17 Dose: 20 mg Nystatin (Nystatin Cream*) 1 applic TOPICAL BID [facility] Last Admin: 04/12/19 09:18 Dose: 1 applic Octreotide Acetate (Octreotide Acetate*) 100 mcg SUBCUT TID [facility] Last Admin: 04/12/19 09:17 Dose: 100 mcg Ondansetron HCl (Zofran Inj*) 4 mg IV Q6H PRN PRN Reason: NAUSEA Oxycodone HCl (Roxycodone Tab*) 5 mg PO BID PRN PRN Reason: PAIN - SEVERE Last Admin: 04/11/19 10:11 Dose: 5 mg Pantoprazole Sodium (Protonix Iv*) 40 mg IV Q12H [facility] Last Admin: 04/12/19 09:18 Dose: 40 mg Rifaximin (Xifaxan*) 550 mg PO BID [facility] Last Admin: 04/12/19 09:16 Dose: 550 mg Spironolactone (Aldactone Tab*) 25 mg PO DAILY [facility] Last Admin: 04/12/19 09:16 Dose: 25 mg Vital Signs - 8 hr 04/12/19 04/12/19 02:42 07:55 Temperature 98.3 F 98.5 F Pulse Rate 59 59 Respiratory 16 16 Rate Blood Pressure 127/49 132/50 (mmHg) O2 Sat by Pulse 97 98 Oximetry Oxygen Devices in Use Now: None Exam: Patient is sitting comfortably in bed with no acute distress. HEENT: Redness on right conjunctiva; bruises on face and neck. Chest: clear with no added sound heart: S1/S2 heard with murmur Abdomen: Distended and nontender. Pitting edema 3+. Coarse and thickened skin on lower abdomen. Normal BS heard Extremities: Scattered bruises on upper extremity. LE has chronic pigmentation and pitting edema upto thighs and overgrown toenails. mIdline in LUE. Neuro: Alert, oriented and coperative. No astrexis noted. Result Diagrams: 04/13/19 05:21 04/13/19 05:21 Microbiology and Other Data: Microbiology 04/02/19 17:09 Stool Occult Blood (MALIHA) - Final Stool Assess/Plan/Problems-Billing Assessment: 73 y/o female with a PMH for Decompensated CirrhosisX3 secondary to GODFREY, CKD, DM II, HTN, TIA, presented from nephrology clinic because of LEONILA and anemia. Found to have decompensated cirrhosis, LEONILA 2/2 HRS, Anemia 2/2 upper GI bleed 2/ 2 to varices/gastritis- s/p 5 U PRBC. Hospital course complicated by hepatic encephalopathy requiring ICU stay with placement of NG tube for lactulose. removed NG tube on 04/08. treating for LEONILA, HRS and HE. Improving - Patient Problems (1) Decompensated hepatic cirrhosis Comment: -Decompensated cirrhosis- Portal HTN, HE, HRS -secondary to GODFREY. -MELD-Na score is 29 which carries 27-32% risk of mortality in 90 days. -Portal HTN- Nadolol(low- dose) -HE: lactulose, rifaximin -HRS: octreotride, IV lasix for volume overload; already received 2 doses of albumin -SBP prophylaxis: Iv ceftriaxone(day 7 on 04/10)- for total of 7 days; completed on 04/10. -appreciate GI input -replaced K and Mg (2) Anemia Comment: -s/p 5U PRBC - from gastric varices and PUD - PPI IV BID - Octreotide for HRS -HB today is 7.9; low but stable -will monitor H&H (3) High anion gap metabolic acidosis Current Visit: Yes Status: Acute Code(s): E87.2 - ACIDOSIS SNOMED Code(s) : 27169144 Comment: -resolved -could be from LEONILA or from starvation acidosis or from decreased clearance of lactic acid. -Lactic acid normal (4) Heart failure with preserved ejection fraction Comment: -Echo in 12/2018 shows Ef of 60-65% with grade 2 diastolic dysfunction. -Mild dilatation of atrium. -Mild -Has patent foramen ovale. -Is volume overloaded but likely from LEONILA and cirrhosis; less likely from HF (5) Acute kidney injury Comment: -Secondary to Hepatorenal syndrome. -Low urine sodium. -Making urine- net negative of 4 L on IV lasix 100 mg BID -Appreciate nephrology consult -Creatinine improving -Clinically volume overloaded. -Continue octreotide(started from 04/03- total 14 days). received albuminX2 -Avoid lisinopril --Continue iv lasix and spironolactone (6) Chronic pain syndrome Comment: - Continue reduced dose oxycodone- 5 mg -has chronic back and knee pain (7) History of gout Comment: - Continue allopurinol- renally dosed (8) Hypertension Comment: -Continue lasix -iv hydralazine prn (9) Peptic ulcer disease Comment: - has gastric nodualrity with inflamation -continue PPI. (10) TIA (transient ischemic attack) Comment: - History TIA - Continue Statin, hold ASA (11) Diabetes mellitus Comment: - A1c is 5.1 on feb 2019 -is on insulin glargine BID at home -hold lantus. -Continue insulin lispro (12) DVT prophylaxis Comment: - No chemical DVT prophylaxis in GI bleeding - SCDs (13) DNR (do not resuscitate) Comment: -discussed with patient and her . Status and Disposition: Inpatient may need rehab after dc referrals sent Attending: Cindy Husain Attestation Documenting Resident: Isabel Motta Supervising Physician: Cindy Husain Attestation: This service has been performed in part by a resident under the direction of a teaching physician.I, Cindy Husain, performed the service, or was physically present during the critical, or st portions of the service, furnished by the resident. I participated in the management of the patient.
--- NOTE | 2019-04-12 22:38 | PN ---
Progress Note - Progress Note Date of Service: 04/12/19 Note: Inpatient Nephrology Follow-up Note: Performed by Dr. Win Beard, [facility] Nephrology 04/12/2019 73 YO WF HRS, LEONILA on CKD, on IV Lasix 100 mg BID Peak BUN/sCr 52/5.41~03/27 Hepatic Encephalopathy. Improved, alert! Portal HTN, Ascites & Portal Gastropathy Recurrent Anemia s/p 6 u PRBCs. Cryptogenic Cirrhosis Fluid overload on IV Lasix 100 mg BID & Spironolactone 25 mg qd since 04/05 Today comfortable, eating and drinking, alert & oriented, feels great. BUN/sCr: 57/4.63~04/04/2019 61/4.37~04/05/2019 62/4.09~04/06/2019 61/3.68~04/07/2019 61/3.42~04/08/2019 60/3.12~04/09/2019 60/2.94~04/10/2019 57/2.57~04/10/2019 62/2.85~04/11/2019 63/2.66~04/12/2019 1,400 cc~04/04 2,375 cc~04/05 4,400 cc~04/06 3,895 cc~04/07 1,950 cc~04/08 4,000 cc~04/09 4,900 cc~04/10 6,200 cc~04/11 6,000 cc~04/12 Hospital Meds: Acetaminophen Albuterol/Ipratropium Allopurinol Furosemide 100 IV BID Heparin Sodium Insulin Human Lispro Lactulose Nadolol Nystatin Octreotide Ondansetron Oxycodone Pantoprazole Rifaximin Spironolactone 25 qd Objective: Vital Signs Temp Pulse Resp BP Pulse Ox 98.2 F 58 16 124/58 99 04/12/19 15:20 04/12/19 15:20 04/12/19 15:20 04/12/19 15:20 04/12/19 15:20 10 Point multi system exam: Constitutional Alert Oriented Abdomen Soft Abdomen No Ascites, Huge pannus Heart: NSR, + LE Edema, No murmur Lungs: Clear to auscultation Extremities: + edema, no rash Skin no rash Hem/Lymph: no palpable lymph nodes Musculoskeletal: No joint swelling Laboratory Reviewed Sodium 135 mmol/L (135-145) 04/12/19 06:21 Potassium 3.9 mmol/L (3.5-5.0) 04/12/19 06:21 BUN 63 mg/dL (6-24) H 04/12/19 06:21 Creatinine 2.66 mg/dL (0.51-0.95) H 04/12/19 06:21 Calcium 8.5 mg/dL (8.6-10.3) L 04/12/19 06:21 Magnesium 1.9 mg/dL (1.9-2.7) 04/12/19 06:21 AST 36 U/L (13-39) 04/09/19 06:20 ALT 15 U/L (7-52) 04/09/19 06:20 A/P: LEONILA on CKD, improved with IV Lasix. May continue 100 BID, she's diuresing well, sCr great response. LEONILA 2/2 HRS & venous congestion. Non Oliguric. UOP is excellent. sCr back to the baseline from 01/2019, 2.6! K & Mg Ok
[2019-04-13 05:40] LABS: Hematocrit 24 % (35-47); Hemoglobin 8.2 g/dL (12.0-16.0); Mean Corpuscular HGB Conc 34 g/dL (31-36); Mean Corpuscular Hemoglobin 32 pg (27-31); Mean Corpuscular Volume 95 fL (80-97); Mean Platelet Volume 8.4 fL (7.4-10.4); Platelet Count 81 10^3/uL (150-450); Red Blood Count 2.54 10^6 /uL (3.70-4.87); Red Cell Distribution Width 21 % (10-15); White Blood Count 8.6 10^3/uL (3.5-10.8)
[2019-04-13 05:48] LABS: Calcium 8.7 mg/dL (8.6-10.3); Magnesium 1.8 mg/dL (1.9-2.7); Potassium 3.6 mmol/L (3.5-5.0)
[2019-04-13 05:54] LABS: BUN/Creatinine Ratio 23.9 (8-20); EGFR African American 22.3 (>60); EGFR Non-African American 18.5 (>60)
[2019-04-13] MEDS ORDERED: Magnesium Sulfate 1 GM IV* 1 GM/100 ML BAG IV ONE (08:41)
--- NOTE | 2019-04-13 08:46 | PN ---
Subjective Date of Service: 04/13/19 Interval History: No acute events overnight. Patient feels fell. She reports she was able to walk to the recliner she is currently in. She is eager for more PT and eventual rehab. She is enthusiastic when mentioning we can remove urinary catheter to encourage ambulation. Objective Active Medications: Acetaminophen (Tylenol Tab*) 650 mg PO BID PRN PRN Reason: PAIN - MILD Albuterol/Ipratropium (Duoneb (Albuterol 2.5 Mg/Ipratropium 0.5 Mg)) 1 neb INH Q4H PRN PRN Reason: SHORTNESS OF BREATH Allopurinol (Zyloprim Tab*) 100 mg PO DAILY [facility] Last Admin: 04/12/19 09:16 Dose: 100 mg Dextrose (D50w Syringe 50 Ml*) 12.5 gm IV PUSH .FOR FS < 60 - SS PRN PRN Reason: FS < 60 Furosemide (Lasix Iv*) 100 mg IV SLOW PU Q12H [facility] Last Admin: 04/12/19 22:02 Dose: 100 mg Heparin Sodium (Porcine) (Heparin Flush Picc/Ml/Cvc(*)) 1 ml FLUSH 0600,1800 [facility]; Protocol Last Admin: 04/13/19 05:08 Dose: 1 ml Insulin Human Lispro (Humalog*) 0 units SUBCUT ACHS [facility]; Protocol Last Admin: 04/12/19 22:12 Dose: Not Given Lactulose (Lactulose*) 30 ml PO TID [facility] Last Admin: 04/12/19 22:12 Dose: 30 ml Nadolol (Corgard Tab*) 20 mg PO DAILY [facility] Last Admin: 04/12/19 09:17 Dose: 20 mg Nystatin (Nystatin Cream*) 1 applic TOPICAL BID [facility] Last Admin: 04/12/19 22:16 Dose: 1 applic Octreotide Acetate (Octreotide Acetate*) 100 mcg SUBCUT TID [facility] Last Admin: 04/12/19 22:00 Dose: 100 mcg Ondansetron HCl (Zofran Inj*) 4 mg IV Q6H PRN PRN Reason: NAUSEA Oxycodone HCl (Roxycodone Tab*) 5 mg PO BID PRN PRN Reason: PAIN - SEVERE Last Admin: 04/11/19 10:11 Dose: 5 mg Pantoprazole Sodium (Protonix Iv*) 40 mg IV Q12H [facility] Last Admin: 04/12/19 22:02 Dose: 40 mg Rifaximin (Xifaxan*) 550 mg PO BID [facility] Last Admin: 04/12/19 22:12 Dose: 550 mg Spironolactone (Aldactone Tab*) 25 mg PO DAILY [facility] Last Admin: 04/12/19 09:16 Dose: 25 mg Vital Signs - 8 hr 04/13/19 03:11 Temperature 98.1 F Pulse Rate 64 Respiratory 20 Rate Blood Pressure 127/45 (mmHg) O2 Sat by Pulse 97 Oximetry Oxygen Devices in Use Now: None Appearance: chronically ill appearing woman in very good spirits; alert and interactive Ears/Nose/Mouth/Throat: Clear Oropharnyx, - - +scleral icterus Neck: NL Appearance and Movements; NL JVP, Trachea Midline Respiratory: Symmetrical Chest Expansion and Respiratory Effort, Clear to Auscultation Cardiovascular: RRR, - - +systolic murmur Abdominal: - - protuberant, no tenderness; no organomegaly Extremities: - - 2+ edema up to bottom of stomach; chronic dry hyperpigmented skin diffusely Result Diagrams: 04/13/19 05:21 04/13/19 05:21 Microbiology and Other Data: Microbiology 04/02/19 17:09 Stool Occult Blood (MALIHA) - Final Stool Assess/Plan/Problems-Billing Assessment: 73W with decompensated cirrhosis secondary to GODFREY, CKD, DM II, HTN, TIA, presents from nephrology clinic because of LEONILA and anemia. Found to have likely from volume overload, and anemia 2/2 upper GI bleed 2/2 to varices/gastritis- s/ p 5 U PRBC. Hospital course complicated by hepatic encephalopathy requiring ICU stay with placement of NG tube for lactulose. removed NG tube on 04/08. - Patient Problems (1) Decompensated hepatic cirrhosis Comment: with HE, secondary to GODFREY. Initially concerned for HRS but did not improve after albumin challenge. MELD-Na score is 29 which carries 27-32% risk of mortality in 90 days. -Portal HTN- Nadolol(low- dose) -HE: lactulose, rifaximin -concern for HRS: octreotride, IV lasix for volume overload; already received 2 doses of albumin -SBP prophylaxis: Iv ceftriaxone(day 7 on 04/10)- for total of 7 days; completed on 04/10. -appreciate GI input (2) Acute kidney injury Comment: Likely from progression of CKD and volume overload. Concern for HRS, but improved with diuretics, did not improve with albumin. -Making urine- net negative of 4 L on IV lasix 100 mg BID -Appreciate nephrology consult -Continue octreotide(started from 04/03- total 14 days). received albuminX2 -Avoid lisinopril --Continue iv lasix and spironolactone (3) Heart failure with preserved ejection fraction Comment: -Echo in 12/2018 shows Ef of 60-65% with grade 2 diastolic dysfunction. -Mild dilatation of atrium. -Mild -Has patent foramen ovale. -Is volume overloaded but likely from LEONILA and cirrhosis; less likely from HF (4) Anemia Comment: -s/p 5U PRBC - from gastric varices and PUD - PPI IV BID - Octreotide for HRS -HB today is 7.9; low but stable -will monitor H&H (5) Chronic pain syndrome Comment: - Continue reduced dose oxycodone- 5 mg -has chronic back and knee pain (6) History of gout Comment: - Continue allopurinol- renally dosed (7) Hypertension Comment: -Continue lasix -iv hydralazine prn (8) Peptic ulcer disease Comment: - has gastric nodualrity with inflamation -continue PPI. (9) TIA (transient ischemic attack) Comment: - History TIA - Continue Statin, hold ASA (10) Diabetes mellitus Comment: - A1c is 5.1 on feb 2019 -is on insulin glargine BID at home -hold lantus. -Continue insulin lispro (11) DVT prophylaxis Comment: - No chemical DVT prophylaxis in GI bleeding - SCDs (12) DNR (do not resuscitate) Comment: -discussed with patient and her . Status and Disposition: Inpatient may need rehab after dc referrals sent
[2019-04-13] MEDS: Insulin LISPRO* 1 UNITS UNIT SUBCUT SCH ×4 (09:45→22:01)
[2019-04-13] MEDS: RiFAXimin* 550 MG TAB PO SCH ×2 (09:47→22:13)
[2019-04-13] MEDS: Octreotide Acetate* 100 MCG/ML 1 ML VIAL SUBCUT SCH ×3 (09:47→22:04)
[2019-04-13] MEDS: Furosemide IV* 10 MG/ML VIAL (40 MG) IV SLOW PU SCH ×2 (09:48→13:36)
[2019-04-13] MEDS: Pantoprazole IV* 40 MG IV SCH ×2 (09:48→22:06)
[2019-04-13] MEDS: Nadolol TAB* 40 MG PO SCH (09:52)
[2019-04-13] MEDS: Allopurinol TAB* 100 MG PO SCH (09:52)
[2019-04-13] MEDS: Spironolactone TAB* 25 MG PO SCH (09:53)
[2019-04-13] MEDS: Nystatin CREAM* 15 GM TUBE TOPICAL SCH (10:04)
--- NOTE | 2019-04-13 21:14 | PN ---
Progress Note - Progress Note Date of Service: 04/13/19 Note: Inpatient Nephrology Follow-up Note: Performed by Dr. Win Beard, [facility] Nephrology 04/13/2019 73 YO WF HRS LEONILA on CKD Massive Fluid overload on IV Lasix 100 mg BID Peak BUN/sCr 52/5.41~03/27/2019 Hepatic Encephalopathy, recovered Portal HTN, Ascites & Portal Gastropathy Recurrent Anemia s/p 6 u PRBCs. Cryptogenic Cirrhosis Negative fluid balance and profuse diuresis Today no c/c. BUN/sCr: 57/4.63~04/04/2019 61/4.37~04/05/2019 62/4.09~04/06/2019 61/3.68~04/07/2019 61/3.42~04/08/2019 60/3.12~04/09/2019 60/2.94~04/10/2019 57/2.57~04/10/2019 62/2.85~04/11/2019 63/2.66~04/12/2019 61/2.55~04/13/2019 UOP: 1,400 cc~04/04 2,375 cc~04/05 4,400 cc~04/06 3,895 cc~04/07 1,950 cc~04/08 4,000 cc~04/09 4,900 cc~04/10 6,200 cc~04/11 6,000 cc~04/12 3,600 cc~04/13 Hospital Meds: Acetaminophen Albuterol/Ipratropium Allopurinol Furosemide 100 IV BID Heparin Sodium Insulin Human Lispro Lactulose Nadolol Nystatin Octreotide Ondansetron Oxycodone HCl Pantoprazole Rifaximin Spironolactone Objective: Vital Signs Vital Signs Temp 97.7 F 04/13/19 16:16 Pulse 75 04/13/19 16:16 Resp 16 04/13/19 16:16 BP 152/65 04/13/19 16:16 Pulse Ox 100 04/13/19 16:16 Intake & Output 04/13/19 04/13/19 04/14/19 06:59 18:59 06:59 Intake Total 480 720 Output Total 2500 800 Weight 133.175 kg Intake: Oral 480 720 Output: Urine 800 [place] 2500 Other: Estimated Void Medium # Bowel Movements 1 1 Estimated Stool Amount Medium Medium # Voids 2 10 Point multi system exam: Constitutional Alert Oriented Abdomen Soft Abdomen No Ascites, Huge pannus Heart: NSR, + LE Edema, No murmur Lungs: Clear to auscultation Extremities: + edema, no rash Skin no rash Hem/Lymph: no palpable lymph nodes Musculoskeletal: No joint swelling Laboratory Reviewed Sodium 133 mmol/L (135-145) L 04/13/19 05:21 Potassium 3.6 mmol/L (3.5-5.0) 04/13/19 05:21 BUN 61 mg/dL (6-24) H 04/13/19 05:21 Creatinine 2.55 mg/dL (0.51-0.95) H 04/13/19 05:21 Calcium 8.7 mg/dL (8.6-10.3) 04/13/19 05:21 Magnesium 1.8 mg/dL (1.9-2.7) L 04/13/19 05:21 AST 36 U/L (13-39) 04/09/19 06:20 ALT 15 U/L (7-52) 04/09/19 06:20 A/P: LEONILA on CKD, improved with IV Lasix. Improvement persistent. UOP Profuse. Keep same Lasix 100 mg IV BID. LEONILA 2/2 HRS & venous congestion. Keep K >4.0 & Mg >2.0
[2019-04-14] MEDS: Nystatin CREAM* 15 GM TUBE TOPICAL SCH ×3 (01:07→19:59)
[2019-04-14] MEDS: Furosemide IV* 10 MG/ML VIAL (40 MG) IV SLOW PU SCH ×2 (06:23→13:46)
[2019-04-14 06:43] LABS: BUN/Creatinine Ratio 22.7 (8-20); Calcium 8.3 mg/dL (8.6-10.3); EGFR African American 23.7 (>60); EGFR Non-African American 19.6 (>60); Magnesium 1.8 mg/dL (1.9-2.7); Potassium 3.4 mmol/L (3.5-5.0)
[2019-04-14] MEDS ORDERED: Potassium Chlor TAB* 20 MEQ TAB.ER PO ONE (06:57)
[2019-04-14] MEDS ORDERED: Magnesium Sulfate 1 GM IV* 1 GM/100 ML BAG IV ONE (06:58)
--- NOTE | 2019-04-14 07:00 | PN ---
Subjective Date of Service: 04/14/19 Interval History: HD 10 on 04/11 Transferred from ICU on 04/07 Overnight: No acute events Vitals stable Patient states she is feeling well and does not having any complaint. She is working well with physical therapy. Patient net negative of 1100 ml. Objective Active Medications: Acetaminophen (Tylenol Tab*) 650 mg PO BID PRN PRN Reason: PAIN - MILD Albuterol/Ipratropium (Duoneb (Albuterol 2.5 Mg/Ipratropium 0.5 Mg)) 1 neb INH Q4H PRN PRN Reason: SHORTNESS OF BREATH Allopurinol (Zyloprim Tab*) 100 mg PO DAILY [facility] Last Admin: 04/13/19 09:52 Dose: 100 mg Dextrose (D50w Syringe 50 Ml*) 12.5 gm IV PUSH .FOR FS < 60 - SS PRN PRN Reason: FS < 60 Furosemide (Lasix Iv*) 100 mg IV SLOW PU 0600,1400 [facility] Last Admin: 04/14/19 06:23 Dose: 100 mg Heparin Sodium (Porcine) (Heparin Flush Picc/Ml/Cvc(*)) 1 ml FLUSH 0600,1800 [facility]; Protocol Last Admin: 04/14/19 06:23 Dose: 1 ml Magnesium Sulfate/Dextrose (Magnesium Sulfate 1 Gm Iv*) 1 gm in 100 mls @ 200 mls/hr IV ONCE ONE Stop: 04/14/19 07:27 Insulin Human Lispro (Humalog*) 0 units SUBCUT ACHS [facility]; Protocol Last Admin: 04/13/19 22:01 Dose: 4 units Lactulose (Lactulose*) 30 ml PO TID [facility] Last Admin: 04/13/19 22:13 Dose: 30 ml Nadolol (Corgard Tab*) 20 mg PO DAILY [facility] Last Admin: 04/13/19 09:52 Dose: 20 mg Pto: Dextran/Polyethylene Glycol/Povidone/Tetrahydrozoline"Eye Drops" 1 dose BOTH EYES Q6H PRN PRN Reason: ITCHY EYES Nystatin (Nystatin Cream*) 1 applic TOPICAL BID [facility] Last Admin: 04/14/19 01:07 Dose: 1 applic Octreotide Acetate (Octreotide Acetate*) 100 mcg SUBCUT TID [facility] Last Admin: 04/13/19 22:04 Dose: 100 mcg Ondansetron HCl (Zofran Inj*) 4 mg IV Q6H PRN PRN Reason: NAUSEA Oxycodone HCl (Roxycodone Tab*) 5 mg PO BID PRN PRN Reason: PAIN - SEVERE Last Admin: 04/11/19 10:11 Dose: 5 mg Pantoprazole Sodium (Protonix Iv*) 40 mg IV Q12H [facility] Last Admin: 04/13/19 22:06 Dose: 40 mg Potassium Chloride (Klor Con Er Tab*) 40 meq PO ONCE ONE Stop: 04/14/19 06:58 Rifaximin (Xifaxan*) 550 mg PO BID [facility] Last Admin: 04/13/19 22:13 Dose: 550 mg Spironolactone (Aldactone Tab*) 25 mg PO DAILY [facility] Last Admin: 04/13/19 09:53 Dose: 25 mg Vital Signs - 8 hr 04/13/19 04/14/19 23:09 03:29 Temperature 97.5 F 97.8 F Pulse Rate 55 61 Respiratory 15 18 Rate Blood Pressure 117/37 141/59 (mmHg) O2 Sat by Pulse 96 97 Oximetry Oxygen Devices in Use Now: None Exam: Patient is sitting comfortably in bed with no acute distress. HEENT: Redness on right conjunctiva; bruises on face and neck. Chest: clear with no added sound heart: S1/S2 heard with murmur Abdomen: Distended and nontender. Pitting edema 3+. Coarse and thickened skin on lower abdomen. Normal BS heard Extremities: Scattered bruises on upper extremity. LE has chronic pigmentation and pitting edema up to thighs and overgrown toenails. mIdline in LUE. Neuro: Alert, oriented and co-operative. No astrexis noted. Result Diagrams: 04/13/19 05:21 04/14/19 05:43 Microbiology and Other Data: Microbiology 04/02/19 17:09 Stool Occult Blood (MALIHA) - Final Stool Assess/Plan/Problems-Billing Assessment: 73W with decompensated cirrhosis secondary to GODFREY, CKD, DM II, HTN, TIA, presents from nephrology clinic because of LEONILA and anemia. Found to have likely from volume overload, and anemia 2/2 upper GI bleed 2/2 to varices/gastritis- s/ p 5 U PRBC. Hospital course complicated by hepatic encephalopathy requiring ICU stay with placement of NG tube for lactulose. removed NG tube on 04/08. Now on aggressive diuresing. - Patient Problems (1) Decompensated hepatic cirrhosis Current Visit: Yes Status: Acute Code(s): K72.90 - HEPATIC FAILURE, UNSPECIFIED WITHOUT COMA SNOMED Code(s): 425410288 Comment: -with HE, secondary to GODFREY. Initially concerned for HRS but did not improve after albumin challenge. MELD-Na score is 29 which carries 27-32% risk of mortality in 90 days. -Portal HTN- Nadolol(low- dose) -HE: lactulose, rifaximin -concern for HRS: octreotride, IV lasix for volume overload; already received 2 doses of albumin -SBP prophylaxis: Iv ceftriaxone(day 7 on 04/10)- for total of 7 days; completed on 04/10. -appreciate GI input (2) Anemia Current Visit: Yes Status: Acute Code(s): D64.9 - ANEMIA, UNSPECIFIED SNOMED Code(s): 961227178 Comment: -s/p 5U PRBC - from gastric varices and PUD - PPI IV BID - Octreotide for HRS -HB today is 8.2; low but stable -will monitor H&H (3) High anion gap metabolic acidosis Current Visit: Yes Status: Acute Code(s): E87.2 - ACIDOSIS SNOMED Code(s) : 98492941 Comment: -resolved -could be from LEONILA or from starvation acidosis or from decreased clearance of lactic acid. -Lactic acid normal (4) Heart failure with preserved ejection fraction Current Visit: Yes Status: Acute Code(s): I50.30 - UNSPECIFIED DIASTOLIC ( CONGESTIVE) HEART FAILURE SNOMED Code(s): 109156622 Comment: -Echo in 12/2018 shows Ef of 60-65% with grade 2 diastolic dysfunction. -Mild dilatation of atrium. -Mild -Has patent foramen ovale. -Is volume overloaded but likely from LEONILA and cirrhosis; less likely from HF (5) Acute kidney injury Current Visit: Yes Status: Acute Priority: High Onset Date: 03/19/14 Code(s): N17.9 - ACUTE KIDNEY FAILURE, UNSPECIFIED SNOMED Code(s): 92608636 Comment: -Likely from progression of CKD and volume overload. Concern for HRS, but improved with diuretics, did not improve with albumin. -Making urine- net negative of 4 L on IV lasix 100 mg BID -Appreciate nephrology consult -Continue octreotide(started from 04/03- total 14 days). received albuminX2 -Avoid lisinopril --Continue iv lasix and spironolactone (6) Chronic pain syndrome Current Visit: Yes Status: Acute Code(s): G89.4 - CHRONIC PAIN SYNDROME SNOMED Code(s): 187650857 Comment: - Continue reduced dose oxycodone- 5 mg -has chronic back and knee pain (7) History of gout Current Visit: Yes Status: Acute Code(s): Z87.39 - PERSONAL HISTORY OF DISEASES OF THE MS SYS AND CONN TISS SNOMED Code(s): 166871450 Comment: - Continue allopurinol- renally dosed (8) Hypertension Current Visit: Yes Status: Acute Code(s): I10 - ESSENTIAL (PRIMARY) HYPERTENSION SNOMED Code(s): 47411435 Comment: -Continue lasix -iv hydralazine prn (9) Peptic ulcer disease Current Visit: Yes Status: Acute Code(s): K27.9 - PEPTIC ULC, SITE UNSP, UNSP AC OR CHR, W/O HEMOR OR PERF SNOMED Code(s): 98490680 Comment: - has gastric nodualrity with inflammation -continue PPI. (10) TIA (transient ischemic attack) Current Visit: Yes Status: Acute Code(s): G45.9 - TRANSIENT CEREBRAL ISCHEMIC ATTACK, UNSPECIFIED SNOMED Code(s): 685378028 Comment: - History TIA - Continue Statin, hold ASA (11) Diabetes mellitus Current Visit: Yes Status: Chronic Code(s): E11.9 - TYPE 2 DIABETES MELLITUS WITHOUT COMPLICATIONS SNOMED Code(s): 70909792 Comment: - A1c is 5.1 on feb 2019 -is on insulin glargine BID at home -Her insulin requirement on 04/13 is 16 U. -will start lantus 8 U and continue sliding scale. (12) DVT prophylaxis Current Visit: Yes Status: Acute Priority: Medium Onset Date: 03/19/14 Code(s): ZWA3600 - SNOMED Code(s): 002494600 Comment: - No chemical DVT prophylaxis in GI bleeding - SCDs (13) DNR (do not resuscitate) Current Visit: Yes Status: Acute Comment: -discussed with patient and her . Status and Disposition: Inpatient may need rehab after dc referrals sent Attending: Cindy Husain Attestation Documenting Resident: Isabel Motta Supervising Physician: Cindy Husain Attestation: This service has been performed in part by a resident under the direction of a teaching physician.I, Cindy Husain, performed the service, or was physically present during the critical, or st portions of the service, furnished by the resident. I participated in the management of the patient.
[2019-04-14] MEDS: Nadolol TAB* 40 MG PO SCH (10:16)
[2019-04-14] MEDS: Spironolactone TAB* 25 MG PO SCH (10:18)
[2019-04-14] MEDS: RiFAXimin* 550 MG TAB PO SCH ×2 (10:19→20:00)
[2019-04-14] MEDS: Allopurinol TAB* 100 MG PO SCH (10:19)
[2019-04-14] MEDS: Pantoprazole IV* 40 MG IV SCH ×2 (10:20→20:00)
[2019-04-14] MEDS: Insulin LISPRO* 1 UNITS UNIT SUBCUT SCH ×4 (10:21→21:20)
[2019-04-14] MEDS: Octreotide Acetate* 100 MCG/ML 1 ML VIAL SUBCUT SCH ×3 (10:25→19:59)
--- NOTE | 2019-04-14 17:01 | PN ---
Progress Note - Progress Note Date of Service: 04/14/19 Note: chief complaint: LEONILA on CKD, volume overload History of present illness: Patient has a complicated medical history including chronic kidney disease, advanced liver cirrhosis with portal hypertension, as well as volume overload. She was initially treated for hepatorenal syndrome with improvement. Started on furosemide 100 mg IV twice a day for anasarca. She lost a tremendous amount of volume with about 18 L negative balance since admission. Creatinine has been 2.42 mg/dL in the last few days, improved. Edema is significantly decreased. She is doing a lot better. She is awake alert and oriented. She is happy with her progress. Her hemoglobin is stable at 8.2 g/dL. Platelets are stable at 81. Blood pressure is well controlled. She oxygenates well on room air. Review of systems: Constitutional: No fevers, chills,. Appetite is improved. GI: Abdominal girth is decreased, she denies abdominal pain, nausea, vomiting, diarrhea or constipation. CVS: no CP, shortness of breath or palpitations. edema decreased but still significant. meds: Acetaminophen (Tylenol Tab*) 650 mg PO BID PRN PRN Reason: PAIN - MILD Albuterol/Ipratropium (Duoneb (Albuterol 2.5 Mg/Ipratropium 0.5 Mg)) 1 neb INH Q4H PRN PRN Reason: SHORTNESS OF BREATH Allopurinol (Zyloprim Tab*) 100 mg PO DAILY [facility] Last Admin: 04/14/19 10:19 Dose: 100 mg Dextrose (D50w Syringe 50 Ml*) 12.5 gm IV PUSH .FOR FS < 60 - SS PRN PRN Reason: FS < 60 Furosemide (Lasix Iv*) 100 mg IV SLOW PU 0600,1400 [facility] Last Admin: 04/14/19 13:46 Dose: 100 mg Heparin Sodium (Porcine) (Heparin Flush Picc/Ml/Cvc(*)) 1 ml FLUSH 0600,1800 [facility]; Protocol Last Admin: 04/14/19 17:32 Dose: Not Given Insulin Glargine (Lantus(*)) 8 units SUBCUT Q24H [facility] Last Admin: 04/14/19 17:28 Dose: 8 units Insulin Human Lispro (Humalog*) 0 units SUBCUT ACHS [facility]; Protocol Last Admin: 04/14/19 17:28 Dose: 4 units Lactulose (Lactulose*) 30 ml PO TID [facility] Last Admin: 04/14/19 19:58 Dose: 30 ml Nadolol (Corgard Tab*) 20 mg PO DAILY [facility] Last Admin: 04/14/19 10:16 Dose: 20 mg Pto: Dextran/Polyethylene Glycol/Povidone/Tetrahydrozoline"Eye Drops" 1 dose BOTH EYES Q6H PRN PRN Reason: ITCHY EYES Nystatin (Nystatin Cream*) 1 applic TOPICAL BID [facility] Last Admin: 04/14/19 19:59 Dose: 1 applic Octreotide Acetate (Octreotide Acetate*) 100 mcg SUBCUT TID [facility] Last Admin: 04/14/19 19:59 Dose: 100 mcg Ondansetron HCl (Zofran Inj*) 4 mg IV Q6H PRN PRN Reason: NAUSEA Oxycodone HCl (Roxycodone Tab*) 5 mg PO BID PRN PRN Reason: PAIN - SEVERE Last Admin: 04/14/19 17:29 Dose: 5 mg Pantoprazole Sodium (Protonix Iv*) 40 mg IV Q12H [facility] Last Admin: 04/14/19 20:00 Dose: 40 mg Rifaximin (Xifaxan*) 550 mg PO BID [facility] Last Admin: 04/14/19 20:00 Dose: 550 mg Spironolactone (Aldactone Tab*) 25 mg PO DAILY [facility] Last Admin: 04/14/19 10:18 Dose: 25 mg Intake & Output 04/12/19 04/13/19 04/14/19 04/15/19 06:59 06:59 06:59 06:59 Intake Total 1526 2500 1200 1255 Output Total 6010 3600 2250 1940 Balance -4484 -1100 -1050 -685 Weight 133.175 kg 132.903 kg Intake: IV Fluids 126 175 All fluids 175 Mag 65 NS (0.9%) 61 Oral 1400 2500 1200 1080 Packed Cells 0 Output: Urine 1100 2100 1940 Olvera 6010 2500 Liquid Stool 150 Other: Estimated Void Medium Medium Date of Last Bowel 04/12/2019 0 Movement # Bowel Movements 1 1 3 1 Estimated Stool Amount Medium Medium Medium Small # Voids 2 1 Laboratory Last Values WBC 8.6 10^3/uL (3.5-10.8) 04/13/19 05:21 RBC 2.54 10^6 /uL (3.70-4.87) L 04/13/19 05:21 Hgb 8.2 g/dL (12.0-16.0) L 04/13/19 05:21 Hct 24 % (35-47) L 04/13/19 05:21 MCV 95 fL (80-97) 04/13/19 05:21 MCH 32 pg (27-31) H 04/13/19 05:21 MCHC 34 g/dL (31-36) 04/13/19 05:21 RDW 21 % (10-15) H 04/13/19 05:21 Plt Count 81 10^3/uL (150-450) L 04/13/19 05:21 MPV 8.4 fL (7.4-10.4) 04/13/19 05:21 Neut % (Auto) 59.7 % 04/12/19 06:21 Lymph % (Auto) 14.8 % 04/12/19 06:21 [place] % (Auto) 12.7 % 04/12/19 06:21 Eos % (Auto) 12.0 % 04/12/19 06:21 Baso % (Auto) 0.8 % 04/12/19 06:21 Absolute Neuts (auto) 4.7 10^3/ul (1.5-7.7) 04/12/19 06:21 Absolute Lymphs (auto) 1.2 10^3/ul (1.0-4.8) 04/12/19 06:21 Absolute Monos (auto) 1.0 10^3/ul (0-0.8) H 04/12/19 06:21 Absolute Eos (auto) 0.9 10^3/ul (0-0.6) H 04/12/19 06:21 Absolute Basos (auto) 0.1 10^3/ul (0-0.2) 04/12/19 06:21 Absolute Nucleated RBC 0.0 10^3/ul 04/12/19 06:21 Neutrophils % 56.0 % 04/04/19 13:13 Lymphocytes % 26.0 % 04/04/19 13:13 Monocytes % 10.0 % 04/04/19 13:13 Eosinophils % 8.0 % 04/04/19 13:13 Basophils % 1.0 % 04/02/19 13:39 Nucleated RBC % 0.2 04/12/19 06:21 Normal RBC Morphology Not Reportable 04/04/19 13:13 Polychromasia 1+ 04/04/19 13:13 Hypochromasia 1+ 04/03/19 06:20 Anisocytosis 1+ 04/09/19 06:20 Target Cells 1+ 04/09/19 06:20 Elliptocytes 1+ 04/04/19 13:13 Haptoglobin 21 mg/dL (30 - 200) L 04/05/19 07:30 Hem Pathologist Commnt 04/04/19 13:13 INR (Anticoag Therapy) 1.59 (0.82-1.09) H 04/05/19 15:17 ABG pH 7.37 (7.35-7.45) 04/05/19 02:45 ABG pCO2 26 mmHg (35-45) L 04/05/19 02:45 ABG pO2 68 mmHg (80-100) L 04/05/19 02:45 ABG HCO3 18.1 mmol/L (19-31) L 04/05/19 02:45 ABG O2 Saturation 96.8 % (94.0-98.0) 04/05/19 02:45 ABG Base Excess -8.6 mmol/L (-2.0-2.0) L 04/05/19 02:45 Sodium 133 mmol/L (135-145) L 04/14/19 05:43 Potassium 3.4 mmol/L (3.5-5.0) L 04/14/19 05:43 Chloride 100 mmol/L (101-111) L 04/14/19 05:43 Carbon Dioxide 26 mmol/L (22-32) 04/14/19 05:43 Anion Gap 7 mmol/L (2-11) 04/14/19 05:43 BUN 55 mg/dL (6-24) H 04/14/19 05:43 Creatinine 2.42 mg/dL (0.51-0.95) H 04/14/19 05:43 Est GFR ( Amer) 23.7 (>60) 04/14/19 05:43 Est GFR (Non-Af Amer) 19.6 (>60) 04/14/19 05:43 BUN/Creatinine Ratio 22.7 (8-20) H 04/14/19 05:43 Glucose 169 mg/dL (70-100) H 04/14/19 05:43 POC Glucose (mg/dL) 219 mg/dL (70-100) H 04/14/19 16:51 Lactic Acid 1.8 mmol/L (0.5-2.0) 04/09/19 06:20 Calcium 8.3 mg/dL (8.6-10.3) L 04/14/19 05:43 Magnesium 1.8 mg/dL (1.9-2.7) L 04/14/19 05:43 Iron 66 ug/dL (50-212) 04/02/19 13:39 TIBC 234 mcg/dL (250-450) L 04/02/19 13:39 % Saturation 28 % (15-55) 04/02/19 13:39 Unsat Iron Binding < 219 ug/dL 04/02/19 13:39 Transferrin 167 mg/dL (203-362) L 04/02/19 13:39 Ferritin 120.7 ng/mL (11-307) 04/02/19 13:39 Total Bilirubin 3.90 mg/dL (0.2-1.0) H 04/09/19 06:20 Direct Bilirubin 1.20 mg/dL (0.03-0.18) H 04/05/19 04:50 Indirect Bilirubin 2.2 mg/dL (0.3-1.0) H 04/05/19 04:50 AST 36 U/L (13-39) 04/09/19 06:20 ALT 15 U/L (7-52) 04/09/19 06:20 Alkaline Phosphatase 61 U/L (34-104) 04/09/19 06:20 Ammonia 85 mcmol/L (16-53) H 04/07/19 06:00 Lactate Dehydrogenase 196 U/L (140-271) 04/05/19 07:30 Total Protein 5.7 g/dL (6.4-8.9) L 04/09/19 06:20 Albumin 2.8 g/dL (3.2-5.2) L 04/09/19 06:20 Globulin 2.9 g/dL (2-4) 04/09/19 06:20 Albumin/Globulin Ratio 1.0 (1-3) 04/09/19 06:20 Vitamin B12 > 1450 pg/mL (180-914) H 04/02/19 13:39 Folate 8.04 ng/mL (>3.99) 04/02/19 13:39 Urine Color Yellow 04/04/19 14:20 Urine Appearance Clear 04/04/19 14:20 Urine pH 5.0 (5-9) 04/04/19 14:20 Ur Specific [place] 1.011 (1.010-1.030) 04/04/19 14:20 Urine Protein 1+(30 mg/dl) (Negative) A 04/04/19 14:20 Urine Ketones Negative (Negative) 04/04/19 14:20 Urine Blood 1+ (Negative) A 04/04/19 14:20 Urine Nitrate Negative (Negative) 04/04/19 14:20 Urine Bilirubin Negative (Negative) 04/04/19 14:20 Urine Urobilinogen Negative (Negative) 04/04/19 14:20 Ur Leukocyte Esterase Negative (Negative) 04/04/19 14:20 Urine WBC (Auto) Trace(0-5/hpf) (Absent) 04/04/19 14:20 Urine RBC (Auto) 2+(6-10/hpf) (Absent) A 04/04/19 14:20 Urine Bacteria Absent (Absent) 04/04/19 14:20 Hyaline Casts Present (Absent) A 04/04/19 14:20 U Sodium Concentration 23 mmol/L 04/03/19 20:45 Urine Glucose Negative (Negative) 04/04/19 14:20 Blood Type A Positive 04/09/19 06:20 Antibody Screen Negative 04/09/19 06:20 Crossmatch See Detail 04/09/19 06:20 physical exam Temp Pulse Resp BP SpO2 FiO2 98 F 56 18 141/57 99 04/14/19 15:15 04/14/19 15:15 04/14/19 20:08 04/14/19 15:15 04/14/19 15:15 const:NAD, pleasant and conversant Chest: CTA anteriorly Heart: S1, S2, RRR, no MRG appreciated, ++soft LE edema GI: positive BS, ascites significanlty decreased, nontender Skin: jaundiced, wrinkled dur to massive volume loss Psych: AAO x3 a/p: 1. LEONILA on CKD - LEONILA improving. CKD st 4 due to DM2 2. Volume overload. Cont same dose of Lasix, she has good diuretic response. BP is excellent. it was low on admission 3. upper GIB. - no signs of recent blood loss 4. Anemia of acute blood loss - Hb stable 5. Liver cirrhosis with portan HTN - on diuretics. Patient is jaundiced. 6. Hepatic encephalopathy - resolved for now - cont lactulose - replace K - hypokalemia promotes ammoniogenesis and worsening of hepatic encephalopathy.
[2019-04-14] MEDS: Insulin GLARGINE(*) 1 UNITS UNIT SUBCUT SCH (17:28)
[2019-04-14] MEDS: oxyCODONE TAB* 5 MG TAB PO PRN (17:29)
[2019-04-14] MEDS ORDERED: Insulin GLARGINE(*) 1 UNITS UNIT SUBCUT SCH (18:00)
[2019-04-15] MEDS: Furosemide IV* 10 MG/ML VIAL (40 MG) IV SLOW PU SCH ×2 (05:39→13:34)
[2019-04-15 06:48] LABS: Calcium 8.4 mg/dL (8.6-10.3); Magnesium 1.9 mg/dL (1.9-2.7); Potassium 3.6 mmol/L (3.5-5.0)
[2019-04-15] MEDS ORDERED: Potassium Chlor TAB* 20 MEQ TAB.ER PO ONE (06:53)
[2019-04-15 06:54] LABS: BUN/Creatinine Ratio 22.4 (8-20); EGFR African American 24.3 (>60); EGFR Non-African American 20.1 (>60)
[2019-04-15] MEDS: RiFAXimin* 550 MG TAB PO SCH ×2 (08:22→21:42)
[2019-04-15] MEDS: Pantoprazole IV* 40 MG IV SCH ×2 (08:22→21:48)
[2019-04-15] MEDS: Insulin LISPRO* 1 UNITS UNIT SUBCUT SCH ×4 (08:22→21:48)
[2019-04-15] MEDS: Nadolol TAB* 40 MG PO SCH (08:23)
[2019-04-15] MEDS: Nystatin CREAM* 15 GM TUBE TOPICAL SCH ×2 (08:23→21:48)
[2019-04-15] MEDS: Octreotide Acetate* 100 MCG/ML 1 ML VIAL SUBCUT SCH ×3 (08:23→21:48)
[2019-04-15] MEDS: Spironolactone TAB* 25 MG PO SCH (08:23)
[2019-04-15] MEDS: Allopurinol TAB* 100 MG PO SCH (08:23)
--- NOTE | 2019-04-15 12:24 | PN ---
Progress Note - Progress Note Date of Service: 04/15/19 Note: Chief complaint: Acute kidney injury on CKD, volume overload. History of present illness: Patient is doing much better today. She was up walking to the bathroom using a walker. She did not need additional assistance. Kidney function is stable. Urine output is still significant and she is still in a negative volume balance. Blood pressure is well controlled. Review of systems: Constitutional: No fevers, chills. Improved appetite GI: No abdominal pain, nausea, vomiting or diarrhea. : Good urine output, no dysuria or hematuria. meds Acetaminophen (Tylenol Tab*) 650 mg PO BID PRN PRN Reason: PAIN - MILD Albuterol/Ipratropium (Duoneb (Albuterol 2.5 Mg/Ipratropium 0.5 Mg)) 1 neb INH Q4H PRN PRN Reason: SHORTNESS OF BREATH Allopurinol (Zyloprim Tab*) 100 mg PO DAILY [facility] Last Admin: 04/15/19 08:23 Dose: 100 mg Dextrose (D50w Syringe 50 Ml*) 12.5 gm IV PUSH .FOR FS < 60 - SS PRN PRN Reason: FS < 60 Furosemide (Lasix Iv*) 100 mg IV SLOW PU 0600,1400 [facility] Last Admin: 04/15/19 13:34 Dose: 100 mg Heparin Sodium (Porcine) (Heparin Flush Picc/Ml/Cvc(*)) 1 ml FLUSH 0600,1800 [facility]; Protocol Last Admin: 04/15/19 17:17 Dose: 1 ml Insulin Glargine (Lantus(*)) 8 units SUBCUT Q24H [facility] Last Admin: 04/15/19 17:17 Dose: 8 units Insulin Human Lispro (Humalog*) 0 units SUBCUT ACHS [facility]; Protocol Last Admin: 04/15/19 17:17 Dose: 4 units Lactulose (Lactulose*) 30 ml PO TID [facility] Last Admin: 04/15/19 13:34 Dose: 30 ml Nadolol (Corgard Tab*) 20 mg PO DAILY [facility] Last Admin: 04/15/19 08:23 Dose: 20 mg Pto: Dextran/Polyethylene Glycol/Povidone/Tetrahydrozoline"Eye Drops" 1 dose BOTH EYES Q6H PRN PRN Reason: ITCHY EYES Nystatin (Nystatin Cream*) 1 applic TOPICAL BID [facility] Last Admin: 04/15/19 08:23 Dose: 1 applic Octreotide Acetate (Octreotide Acetate*) 100 mcg SUBCUT TID [facility] Last Admin: 04/15/19 13:34 Dose: Not Given Ondansetron HCl (Zofran Inj*) 4 mg IV Q6H PRN PRN Reason: NAUSEA Pantoprazole Sodium (Protonix Iv*) 40 mg IV Q12H [facility] Last Admin: 04/15/19 08:22 Dose: 40 mg Rifaximin (Xifaxan*) 550 mg PO BID [facility] Last Admin: 04/15/19 08:22 Dose: 550 mg Spironolactone (Aldactone Tab*) 25 mg PO DAILY [facility] Last Admin: 04/15/19 08:23 Dose: 25 mg Laboratory Last Values WBC 8.6 10^3/uL (3.5-10.8) 04/13/19 05:21 RBC 2.54 10^6 /uL (3.70-4.87) L 04/13/19 05:21 Hgb 8.2 g/dL (12.0-16.0) L 04/13/19 05:21 Hct 24 % (35-47) L 04/13/19 05:21 MCV 95 fL (80-97) 04/13/19 05:21 MCH 32 pg (27-31) H 04/13/19 05:21 MCHC 34 g/dL (31-36) 04/13/19 05:21 RDW 21 % (10-15) H 04/13/19 05:21 Plt Count 81 10^3/uL (150-450) L 04/13/19 05:21 MPV 8.4 fL (7.4-10.4) 04/13/19 05:21 Neut % (Auto) 59.7 % 04/12/19 06:21 Lymph % (Auto) 14.8 % 04/12/19 06:21 [place] % (Auto) 12.7 % 04/12/19 06:21 Eos % (Auto) 12.0 % 04/12/19 06:21 Baso % (Auto) 0.8 % 04/12/19 06:21 Absolute Neuts (auto) 4.7 10^3/ul (1.5-7.7) 04/12/19 06:21 Absolute Lymphs (auto) 1.2 10^3/ul (1.0-4.8) 04/12/19 06:21 Absolute Monos (auto) 1.0 10^3/ul (0-0.8) H 04/12/19 06:21 Absolute Eos (auto) 0.9 10^3/ul (0-0.6) H 04/12/19 06:21 Absolute Basos (auto) 0.1 10^3/ul (0-0.2) 04/12/19 06:21 Absolute Nucleated RBC 0.0 10^3/ul 04/12/19 06:21 Neutrophils % 56.0 % 04/04/19 13:13 Lymphocytes % 26.0 % 04/04/19 13:13 Monocytes % 10.0 % 04/04/19 13:13 Eosinophils % 8.0 % 04/04/19 13:13 Basophils % 1.0 % 04/02/19 13:39 Nucleated RBC % 0.2 04/12/19 06:21 Normal RBC Morphology Not Reportable 04/04/19 13:13 Polychromasia 1+ 04/04/19 13:13 Hypochromasia 1+ 04/03/19 06:20 Anisocytosis 1+ 04/09/19 06:20 Target Cells 1+ 04/09/19 06:20 Elliptocytes 1+ 04/04/19 13:13 Haptoglobin 21 mg/dL (30 - 200) L 04/05/19 07:30 Hem Pathologist Commnt 04/04/19 13:13 INR (Anticoag Therapy) 1.59 (0.82-1.09) H 04/05/19 15:17 ABG pH 7.37 (7.35-7.45) 04/05/19 02:45 ABG pCO2 26 mmHg (35-45) L 04/05/19 02:45 ABG pO2 68 mmHg (80-100) L 04/05/19 02:45 ABG HCO3 18.1 mmol/L (19-31) L 04/05/19 02:45 ABG O2 Saturation 96.8 % (94.0-98.0) 04/05/19 02:45 ABG Base Excess -8.6 mmol/L (-2.0-2.0) L 02/08/20 02:45 Sodium 135 mmol/L (135-145) 04/15/19 06:19 Potassium 3.6 mmol/L (3.5-5.0) 04/15/19 06:19 Chloride 101 mmol/L (101-111) 04/15/19 06:19 Carbon Dioxide 27 mmol/L (22-32) 04/15/19 06:19 Anion Gap 7 mmol/L (2-11) 04/15/19 06:19 BUN 53 mg/dL (6-24) H 04/15/19 06:19 Creatinine 2.37 mg/dL (0.51-0.95) H 04/15/19 06:19 Est GFR ( Amer) 24.3 (>60) 04/15/19 06:19 Est GFR (Non-Af Amer) 20.1 (>60) 04/15/19 06:19 BUN/Creatinine Ratio 22.4 (8-20) H 04/15/19 06:19 Glucose 136 mg/dL (70-100) H 04/15/19 06:19 POC Glucose (mg/dL) 202 mg/dL (70-100) H 04/15/19 16:52 Lactic Acid 1.8 mmol/L (0.5-2.0) 04/09/19 06:20 Calcium 8.4 mg/dL (8.6-10.3) L 04/15/19 06:19 Magnesium 1.9 mg/dL (1.9-2.7) 04/15/19 06:19 Iron 66 ug/dL (50-212) 04/02/19 13:39 TIBC 234 mcg/dL (250-450) L 04/02/19 13:39 % Saturation 28 % (15-55) 04/02/19 13:39 Unsat Iron Binding < 219 ug/dL 04/02/19 13:39 Transferrin 167 mg/dL (203-362) L 04/02/19 13:39 Ferritin 120.7 ng/mL (11-307) 04/02/19 13:39 Total Bilirubin 3.90 mg/dL (0.2-1.0) H 04/09/19 06:20 Direct Bilirubin 1.20 mg/dL (0.03-0.18) H 04/05/19 04:50 Indirect Bilirubin 2.2 mg/dL (0.3-1.0) H 04/05/19 04:50 AST 36 U/L (13-39) 04/09/19 06:20 ALT 15 U/L (7-52) 04/09/19 06:20 Alkaline Phosphatase 61 U/L (34-104) 04/09/19 06:20 Ammonia 85 mcmol/L (16-53) H 04/07/19 06:00 Lactate Dehydrogenase 196 U/L (140-271) 04/05/19 07:30 Total Protein 5.7 g/dL (6.4-8.9) L 04/09/19 06:20 Albumin 2.8 g/dL (3.2-5.2) L 04/09/19 06:20 Globulin 2.9 g/dL (2-4) 04/09/19 06:20 Albumin/Globulin Ratio 1.0 (1-3) 04/09/19 06:20 Vitamin B12 > 1450 pg/mL (180-914) H 04/02/19 13:39 Folate 8.04 ng/mL (>3.99) 04/02/19 13:39 Urine Color Yellow 04/04/19 14:20 Urine Appearance Clear 04/04/19 14:20 Urine pH 5.0 (5-9) 04/04/19 14:20 Ur Specific [place] 1.011 (1.010-1.030) 04/04/19 14:20 Urine Protein 1+(30 mg/dl) (Negative) A 04/04/19 14:20 Urine Ketones Negative (Negative) 04/04/19 14:20 Urine Blood 1+ (Negative) A 04/04/19 14:20 Urine Nitrate Negative (Negative) 04/04/19 14:20 Urine Bilirubin Negative (Negative) 04/04/19 14:20 Urine Urobilinogen Negative (Negative) 04/04/19 14:20 Ur Leukocyte Esterase Negative (Negative) 04/04/19 14:20 Urine WBC (Auto) Trace(0-5/hpf) (Absent) 04/04/19 14:20 Urine RBC (Auto) 2+(6-10/hpf) (Absent) A 04/04/19 14:20 Urine Bacteria Absent (Absent) 04/04/19 14:20 Hyaline Casts Present (Absent) A 04/04/19 14:20 U Sodium Concentration 23 mmol/L 04/03/19 20:45 Urine Glucose Negative (Negative) 04/04/19 14:20 Blood Type A Positive 04/09/19 06:20 Antibody Screen Negative 04/09/19 06:20 Crossmatch See Detail 04/09/19 06:20 Physical exam: Temp Pulse Resp BP SpO2 FiO2 97.8 F 64 16 130/62 99 04/15/19 15:14 04/15/19 15:14 04/15/19 15:14 04/15/19 15:14 04/15/19 15:14 Constitutional: No acute distress, pleasant, conversant, much improved. Chest clear to auscultation with good respiratory effort Psychiatric: Alert and oriented 3. Skin: Jaundiced Assessment and plan. 1. LEONILA on CKD. Kidney function back to baseline. 2. Volume overload improving. No changes in diuretics today. 3. Upper GI bleed. Stable. 4. Liver cirrhosis with portal hypertension. Same dose of diuretics.
--- NOTE | 2019-04-15 14:46 | PN ---
Subjective Date of Service: 04/15/19 Interval History: HD 11 on 04/12 Transferred from ICU on 04/07 Overnight: No acute events Vitals stable Patient seen and examined at bedside. Patient sitting on a recliner. She is feeling fine and doing well. Tolerating PO well. Working with physical therapy LE edema getting better Objective Active Medications: Acetaminophen (Tylenol Tab*) 650 mg PO BID PRN PRN Reason: PAIN - MILD Albuterol/Ipratropium (Duoneb (Albuterol 2.5 Mg/Ipratropium 0.5 Mg)) 1 neb INH Q4H PRN PRN Reason: SHORTNESS OF BREATH Allopurinol (Zyloprim Tab*) 100 mg PO DAILY [facility] Last Admin: 04/15/19 08:23 Dose: 100 mg Dextrose (D50w Syringe 50 Ml*) 12.5 gm IV PUSH .FOR FS < 60 - SS PRN PRN Reason: FS < 60 Furosemide (Lasix Iv*) 100 mg IV SLOW PU 0600,1400 [facility] Last Admin: 04/15/19 13:34 Dose: 100 mg Heparin Sodium (Porcine) (Heparin Flush Picc/Ml/Cvc(*)) 1 ml FLUSH 0600,1800 [facility]; Protocol Last Admin: 04/15/19 05:39 Dose: 1 ml Insulin Glargine (Lantus(*)) 8 units SUBCUT Q24H [facility] Last Admin: 04/14/19 17:28 Dose: 8 units Insulin Human Lispro (Humalog*) 0 units SUBCUT ACHS [facility]; Protocol Last Admin: 04/15/19 12:17 Dose: 4 units Lactulose (Lactulose*) 30 ml PO TID [facility] Last Admin: 04/15/19 13:34 Dose: 30 ml Nadolol (Corgard Tab*) 20 mg PO DAILY [facility] Last Admin: 04/15/19 08:23 Dose: 20 mg Pto: Dextran/Polyethylene Glycol/Povidone/Tetrahydrozoline"Eye Drops" 1 dose BOTH EYES Q6H PRN PRN Reason: ITCHY EYES Nystatin (Nystatin Cream*) 1 applic TOPICAL BID [facility] Last Admin: 04/15/19 08:23 Dose: 1 applic Octreotide Acetate (Octreotide Acetate*) 100 mcg SUBCUT TID [facility] Last Admin: 04/15/19 13:34 Dose: Not Given Ondansetron HCl (Zofran Inj*) 4 mg IV Q6H PRN PRN Reason: NAUSEA Oxycodone HCl (Roxycodone Tab*) 5 mg PO BID PRN PRN Reason: PAIN - SEVERE Last Admin: 04/14/19 17:29 Dose: 5 mg Pantoprazole Sodium (Protonix Iv*) 40 mg IV Q12H [facility] Last Admin: 04/15/19 08:22 Dose: 40 mg Rifaximin (Xifaxan*) 550 mg PO BID [facility] Last Admin: 04/15/19 08:22 Dose: 550 mg Spironolactone (Aldactone Tab*) 25 mg PO DAILY [facility] Last Admin: 04/15/19 08:23 Dose: 25 mg Vital Signs - 8 hr 04/15/19 04/15/19 04/15/19 07:15 08:55 11:15 Temperature 97.9 F 98.2 F Pulse Rate 62 73 Respiratory 18 18 18 Rate Blood Pressure 121/58 119/62 (mmHg) O2 Sat by Pulse 98 97 Oximetry Oxygen Devices in Use Now: None Exam: Patient is sitting comfortably in bed with no acute distress. HEENT: Redness on right conjunctiva; bruises on face and neck. Chest: clear with no added sound heart: S1/S2 heard with murmur Abdomen: Distended and nontender. Pitting edema 3+. Coarse and thickened skin on lower abdomen. Normal BS heard Extremities: Scattered bruises on upper extremity. LE has chronic pigmentation and pitting edema up to thighs and overgrown toenails. mIdline in LUE. Neuro: Alert, oriented and co-operative. No astrexis noted. Result Diagrams: 04/13/19 05:21 04/15/19 06:19 Microbiology and Other Data: Microbiology 04/02/19 17:09 Stool Occult Blood (MALIHA) - Final Stool Assess/Plan/Problems-Billing Assessment: 73W with decompensated cirrhosis secondary to GODFREY, CKD, DM II, HTN, TIA, presents from nephrology clinic because of LEONILA and anemia. Found to have likely from volume overload, and anemia 2/2 upper GI bleed 2/2 to varices/gastritis- s/ p 5 U PRBC. Hospital course complicated by hepatic encephalopathy requiring ICU stay with placement of NG tube for lactulose. removed NG tube on 04/08. Now on aggressive diuresis - Patient Problems (1) Decompensated hepatic cirrhosis Current Visit: Yes Status: Acute Code(s): K72.90 - HEPATIC FAILURE, UNSPECIFIED WITHOUT COMA SNOMED Code(s): 727944471 Comment: -with HE, secondary to GODFRYE. Initially concerned for HRS but did not improve after albumin challenge. MELD-Na score is 26 (at highest Cr) which carries 19.6 % risk of mortality in 90 days. Will recalculate MELD when Cr hits humberto -Portal HTN- Nadolol(low- dose) -HE: lactulose, rifaximin -concern for HRS: octreotride, IV lasix for volume overload; already received 2 doses of albumin -SBP prophylaxis: Iv ceftriaxone(day 7 on 04/10)- for total of 7 days; completed on 04/10. -appreciate GI input (2) Anemia Current Visit: Yes Status: Acute Code(s): D64.9 - ANEMIA, UNSPECIFIED SNOMED Code(s): 230648366 Comment: s/p 5U PRBC - from gastric varices and PUD - PPI IV BID - Octreotide for HRS -HB today is 8.2; low but stable -will monitor H&H (3) Heart failure with preserved ejection fraction Current Visit: Yes Status: Acute Code(s): I50.30 - UNSPECIFIED DIASTOLIC ( CONGESTIVE) HEART FAILURE SNOMED Code(s): 961473405 Comment: -Echo in 12/2018 shows Ef of 60-65% with grade 2 diastolic dysfunction. -Mild dilatation of atrium. -Mild -Has patent foramen ovale. -Is volume overloaded but likely from LEONILA and cirrhosis; less likely from HF (4) Acute kidney injury Current Visit: Yes Status: Acute Priority: High Onset Date: 03/19/14 Code(s): N17.9 - ACUTE KIDNEY FAILURE, UNSPECIFIED SNOMED Code(s): 64728513 Comment: -Likely from progression of CKD and volume overload. Concern for HRS, but improved with diuretics, did not improve with albumin. -Making urine- on IV lasix 100 mg BID -Appreciate nephrology consult -Continue octreotide(started from 04/03- total 14 days). received albuminX2 -Avoid lisinopril --Continue iv lasix and spironolactone (5) Chronic pain syndrome Current Visit: Yes Status: Acute Code(s): G89.4 - CHRONIC PAIN SYNDROME SNOMED Code(s): 040804849 Comment: - Continue reduced dose oxycodone- 5 mg -has chronic back and knee pain (6) History of gout Current Visit: Yes Status: Acute Code(s): Z87.39 - PERSONAL HISTORY OF DISEASES OF THE MS SYS AND CONN TISS SNOMED Code(s): 929262371 Comment: - Continue allopurinol- renally dosed (7) Hypertension Current Visit: Yes Status: Acute Code(s): I10 - ESSENTIAL (PRIMARY) HYPERTENSION SNOMED Code(s): 50113283 Comment: -Continue lasix -iv hydralazine prn (8) Peptic ulcer disease Current Visit: Yes Status: Acute Code(s): K27.9 - PEPTIC ULC, SITE UNSP, UNSP AC OR CHR, W/O HEMOR OR PERF SNOMED Code(s): 00570083 Comment: - has gastric nodualrity with inflammation -continue PPI. (9) TIA (transient ischemic attack) Current Visit: Yes Status: Acute Code(s): G45.9 - TRANSIENT CEREBRAL ISCHEMIC ATTACK, UNSPECIFIED SNOMED Code(s): 712761792 Comment: - History TIA - Continue Statin, hold ASA (10) Diabetes mellitus Current Visit: Yes Status: Chronic Code(s): E11.9 - TYPE 2 DIABETES MELLITUS WITHOUT COMPLICATIONS SNOMED Code(s): 57372077 Comment: - A1c is 5.1 on feb 2019 -is on insulin glargine BID at home -Her insulin requirement on 04/13 is 16 U. -will start lantus 8 U and continue sliding scale. (11) DVT prophylaxis Current Visit: Yes Status: Acute Priority: Medium Onset Date: 03/19/14 Code(s): SMG9137 - SNOMED Code(s): 590235686 Comment: - No chemical DVT prophylaxis in GI bleeding - SCDs (12) DNR (do not resuscitate) Current Visit: Yes Status: Acute Comment: Status and Disposition: Inpatient may need rehab after dc referrals sent Attending: Katey Lopez Attestation Documenting Resident: Isabel Motta Supervising Physician: Katey Lopez Attending/Supervising Physician Comment: 73F PMH GODFREY cirrhosis d/b HE, ascites, and gastric varices, HFpEF (last echo 2019 Grade 2 diastolic and EF 60%), CKD, morbid obesity, IDDM, HTN, gout, hx of TIA, PUD, 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 She is s/p EGD on 04/03 showing GAVE but no active bleeding and e/o gastric varicies Her late hospital course c/b HE, necessitating ICU transfer, placement of NGT for lactulose on 04/05 , transferred back out on 04/07. Now STEADILY improving Plan: -Continue to follow renal recommendations on aggressive IV diuresis, currently at 100IV BID -Hard to say if HRS or not, hypotensive on admission, albumin challenge failed initially, then started octerotide, midodrine briefly with hypertension, remains on octreotide at nephrology recommendation as it seems they can't r/o HRS? re consult to nephrology to comment on length of octreotide -Recalculate MELD score once Cr improves, will dramatically change her mortality rate -Will need BEATRIZ on d/c Attestation: This service has been performed in part by a resident under the direction of a teaching physician.I, Katey Lopez, performed the service, or was physically present during the critical, or st portions of the service, furnished by the resident. I participated in the management of the patient.
[2019-04-15] MEDS: Insulin GLARGINE(*) 1 UNITS UNIT SUBCUT SCH (17:17)
[2019-04-16] MEDS: Furosemide IV* 10 MG/ML VIAL (40 MG) IV SLOW PU SCH (05:18)
[2019-04-16 06:06] LABS: BUN/Creatinine Ratio 21.7 (8-20); Calcium 8.2 mg/dL (8.6-10.3); EGFR African American 25.1 (>60); EGFR Non-African American 20.8 (>60); Magnesium 1.7 mg/dL (1.9-2.7); Potassium 3.6 mmol/L (3.5-5.0)
[2019-04-16] MEDS: RiFAXimin* 550 MG TAB PO SCH ×2 (09:02→23:15)
[2019-04-16] MEDS: Allopurinol TAB* 100 MG PO SCH (09:02)
[2019-04-16] MEDS: Spironolactone TAB* 25 MG PO SCH (09:02)
[2019-04-16] MEDS: Nadolol TAB* 40 MG PO SCH (09:02)
[2019-04-16] MEDS: Insulin LISPRO* 1 UNITS UNIT SUBCUT SCH ×3 (09:09→17:36)
[2019-04-16] MEDS: Octreotide Acetate* 100 MCG/ML 1 ML VIAL SUBCUT SCH ×3 (09:09→23:09)
[2019-04-16] MEDS: Pantoprazole IV* 40 MG IV SCH ×2 (09:10→23:09)
[2019-04-16] MEDS: Nystatin CREAM* 15 GM TUBE TOPICAL SCH ×2 (09:15→23:11)
[2019-04-16] MEDS ORDERED: Potassium Chlor TAB* 20 MEQ TAB.ER PO ONE (10:10)
[2019-04-16] MEDS ORDERED: Magnesium Sulfate 2 GM IV* 2 GM/50 ML BAG IVPB ONE (10:11)
[2019-04-16] MEDS ORDERED: Spironolactone TAB* 25 MG PO ONE (10:17)
[2019-04-16] MEDS: Torsemide TAB* 20 MG PO SCH (12:52)
[2019-04-16] MEDS: Insulin GLARGINE(*) 1 UNITS UNIT SUBCUT SCH (17:36)
--- NOTE | 2019-04-16 18:11 | PN ---
Subjective Date of Service: 04/16/19 Interval History: HD 12 on 04/16 Transferred from ICU on 04/07 Overnight: No acute events Vitals stable Patient seen and examined at bedside. Patient sitting on a recliner. She is feeling fine and doing well. Tolerating PO well. although had multiple BM yesterday so decreased lactulose and changed lasix to PO torsemide Working with physical therapy LE edema getting better Objective Active Medications: Acetaminophen (Tylenol Tab*) 650 mg PO BID PRN PRN Reason: PAIN - MILD Albuterol/Ipratropium (Duoneb (Albuterol 2.5 Mg/Ipratropium 0.5 Mg)) 1 neb INH Q4H PRN PRN Reason: SHORTNESS OF BREATH Allopurinol (Zyloprim Tab*) 100 mg PO DAILY [facility] Last Admin: 04/16/19 09:02 Dose: 100 mg Dextrose (D50w Syringe 50 Ml*) 12.5 gm IV PUSH .FOR FS < 60 - SS PRN PRN Reason: FS < 60 Heparin Sodium (Porcine) (Heparin Flush Picc/Ml/Cvc(*)) 1 ml FLUSH 0600,1800 [facility]; Protocol Last Admin: 04/16/19 17:40 Dose: 1 ml Insulin Glargine (Lantus(*)) 8 units SUBCUT Q24H [facility] Last Admin: 04/16/19 17:36 Dose: 8 units Insulin Human Lispro (Humalog*) 0 units SUBCUT AC [facility]; Protocol Last Admin: 04/16/19 17:36 Dose: 1 units Lactulose (Lactulose*) 20 ml PO TID [facility] Last Admin: 04/16/19 12:44 Dose: 20 ml Nadolol (Corgard Tab*) 20 mg PO DAILY [facility] Last Admin: 04/16/19 09:02 Dose: 20 mg Pto: Dextran/Polyethylene Glycol/Povidone/Tetrahydrozoline"Eye Drops" 1 dose BOTH EYES Q6H PRN PRN Reason: ITCHY EYES Nystatin (Nystatin Cream*) 1 applic TOPICAL BID [facility] Last Admin: 04/16/19 09:15 Dose: 1 applic Octreotide Acetate (Octreotide Acetate*) 100 mcg SUBCUT TID [facility] Stop: 04/16/19 22:00 Last Admin: 04/16/19 12:42 Dose: 100 mcg Ondansetron HCl (Zofran Inj*) 4 mg IV Q6H PRN PRN Reason: NAUSEA Pantoprazole Sodium (Protonix Iv*) 40 mg IV Q12H [facility] Last Admin: 04/16/19 09:10 Dose: 40 mg Rifaximin (Xifaxan*) 550 mg PO BID [facility] Last Admin: 04/16/19 09:02 Dose: 550 mg Spironolactone (Aldactone Tab*) 50 mg PO DAILY [facility] Torsemide (Demadex*) 40 mg PO 0600,1200 [facility] Last Admin: 04/16/19 12:52 Dose: 40 mg Vital Signs - 8 hr 04/16/19 04/16/19 11:15 15:15 Temperature 98.1 F 98.1 F Pulse Rate 55 58 Respiratory 14 20 Rate Blood Pressure 130/46 122/45 (mmHg) O2 Sat by Pulse 100 99 Oximetry Oxygen Devices in Use Now: None Exam: Patient is sitting comfortably in bed with no acute distress. HEENT: Redness on right conjunctiva; bruises on face and neck. Chest: clear with no added sound heart: S1/S2 heard with murmur Abdomen: Distended and nontender. Pitting edema 3+. Coarse and thickened skin on lower abdomen. Normal BS heard Extremities: Scattered bruises on upper extremity. LE has chronic pigmentation and pitting edema up to thighs and overgrown toenails. mIdline in LUE. Neuro: Alert, oriented and co-operative. No astrexis noted. Result Diagrams: 04/13/19 05:21 04/17/19 05:30 Microbiology and Other Data: Microbiology 04/02/19 17:09 Stool Occult Blood (MALIHA) - Final Stool Assess/Plan/Problems-Billing Assessment: 73W with decompensated cirrhosis secondary to GODFREY, CKD, DM II, HTN, TIA, presents from nephrology clinic because of LEONILA and anemia. Found to have likely from volume overload, and anemia 2/2 upper GI bleed 2/2 to varices/gastritis- s/ p 5 U PRBC. Hospital course complicated by hepatic encephalopathy requiring ICU stay with placement of NG tube for lactulose. removed NG tube on 04/08. Now on aggressive diuresis. switched to oral - Patient Problems (1) Decompensated hepatic cirrhosis Comment: -with HE, secondary to GODFREY. Initially concerned for HRS but did not improve after albumin challenge. MELD-Na score is 26 (at highest Cr) which carries 19.6 % risk of mortality in 90 days. Will recalculate MELD when Cr hits humberto -Portal HTN- Nadolol(low- dose) -HE: lactulose, rifaximin -concern for HRS: octreotride stopped on 04/16, IV lasix for volume overload; already received 2 doses of albumin -SBP prophylaxis: Iv ceftriaxone(day 7 on 04/10)- for total of 7 days; completed on 04/10. -appreciate GI input (2) Anemia Comment: s/p 5U PRBC - from gastric varices and PUD - PPI BID - Octreotide for HRS- completed 14 days of octreotide -HB today is 8.2; low but stable -will monitor H&H (3) Heart failure with preserved ejection fraction Comment: -Echo in 12/2018 shows Ef of 60-65% with grade 2 diastolic dysfunction. -Mild dilatation of atrium. -Mild -Has patent foramen ovale. -Is volume overloaded but likely from LEONILA and cirrhosis; less likely from HF (4) Acute kidney injury Comment: -Likely from progression of CKD and volume overload. Concern for HRS, but improved with diuretics, did not improve with albumin. -switched to torsemide -Appreciate nephrology consult -completed octreotide(started from 04/03- total 14 days). received albuminX2 -Avoid lisinopril --Continue torsemide and spironolactone (5) Chronic pain syndrome Comment: - Continue reduced dose oxycodone- 5 mg -has chronic back and knee pain (6) History of gout Comment: - Continue allopurinol- renally dosed (7) Hypertension Comment: -Continue lasix -iv hydralazine prn (8) Peptic ulcer disease Comment: - has gastric nodualrity with inflammation -continue PPI. (9) TIA (transient ischemic attack) Comment: - History TIA - Continue Statin, hold ASA (10) Diabetes mellitus Comment: - A1c is 5.1 on feb 2019 -is on insulin glargine BID at home -Her insulin requirement on 04/13 is 16 U. -will start lantus 8 U and continue sliding scale. (11) DVT prophylaxis Comment: - No chemical DVT prophylaxis in GI bleeding - SCDs (12) DNR (do not resuscitate) Comment: Status and Disposition: Inpatient may need rehab after dc referrals sent Attending: Cindy Husain Attestation Documenting Resident: Isabel Motta Supervising Physician: Cindy Husain Attending/Supervising Physician Comment: 73W with decompensated cirrhosis from GODFREY c/b ascites/HE/varices, HFpEF, CKD, morbid obesity, DM2 on insulin, HTN, chronic pain on opiates, sent from renal clinic for new LEONILA on CKD, also with severe anemia requiring transfusions from GAVE. LEONILA thought to be from HRS vs HF, but likely the latter as she continues to improve significantly with diuretics. Attestation: This service has been performed in part by a resident under the direction of a teaching physician.I, Cindy Husain, performed the service, or was physically present during the critical, or st portions of the service, furnished by the resident. I participated in the management of the patient.
[2019-04-17 06:00] LABS: BUN/Creatinine Ratio 22.9 (8-20); Calcium 8.3 mg/dL (8.6-10.3); EGFR African American 25.5 (>60); EGFR Non-African American 21.1 (>60); Magnesium 1.8 mg/dL (1.9-2.7); Potassium 3.9 mmol/L (3.5-5.0)
[2019-04-17] MEDS: Torsemide TAB* 20 MG PO SCH ×2 (07:18→12:45)
[2019-04-17] MEDS ORDERED: Magnesium Sulfate 2 GM IV* 2 GM/50 ML BAG IVPB ONE (07:23)
[2019-04-17] MEDS: Insulin LISPRO* 1 UNITS UNIT SUBCUT SCH ×3 (09:32→17:41)
[2019-04-17] MEDS: Nystatin CREAM* 15 GM TUBE TOPICAL SCH ×2 (09:33→21:00)
[2019-04-17] MEDS: Nadolol TAB* 40 MG PO SCH (09:33)
[2019-04-17] MEDS: Pantoprazole IV* 40 MG IV SCH (09:33)
[2019-04-17] MEDS: Allopurinol TAB* 100 MG PO SCH (09:34)
[2019-04-17] MEDS: Spironolactone TAB* 25 MG PO SCH (09:34)
--- NOTE | 2019-04-17 14:20 | PN ---
Subjective Date of Service: 04/17/19 Interval History: HD 13 on 04/17 Transferred from ICU on 04/07 Overnight: No acute events Vitals stable Patient seen and examined at bedside. Patient is very motivated and pleasant. Has 1 BM since this morning. HAs OT needs- likely chance for going to PMRU Objective Active Medications: Acetaminophen (Tylenol Tab*) 650 mg PO BID PRN PRN Reason: PAIN - MILD Albuterol/Ipratropium (Duoneb (Albuterol 2.5 Mg/Ipratropium 0.5 Mg)) 1 neb INH Q4H PRN PRN Reason: SHORTNESS OF BREATH Allopurinol (Zyloprim Tab*) 100 mg PO DAILY [facility] Last Admin: 04/17/19 09:34 Dose: 100 mg Dextrose (D50w Syringe 50 Ml*) 12.5 gm IV PUSH .FOR FS < 60 - SS PRN PRN Reason: FS < 60 Heparin Sodium (Porcine) (Heparin Flush Picc/Ml/Cvc(*)) 1 ml FLUSH 0600,1800 [facility]; Protocol Last Admin: 04/17/19 07:17 Dose: Not Given Insulin Glargine (Lantus(*)) 8 units SUBCUT Q24H [facility] Last Admin: 04/16/19 17:36 Dose: 8 units Insulin Human Lispro (Humalog*) 0 units SUBCUT AC [facility]; Protocol Last Admin: 04/17/19 12:45 Dose: 2 units Lactulose (Lactulose*) 20 ml PO TID [facility] Last Admin: 04/17/19 09:34 Dose: 20 ml Nadolol (Corgard Tab*) 20 mg PO DAILY [facility] Last Admin: 04/17/19 09:33 Dose: 20 mg Pto: Dextran/Polyethylene Glycol/Povidone/Tetrahydrozoline"Eye Drops" 1 dose BOTH EYES Q6H PRN PRN Reason: ITCHY EYES Nystatin (Nystatin Cream*) 1 applic TOPICAL BID [facility] Last Admin: 04/17/19 09:33 Dose: 1 applic Ondansetron HCl (Zofran Inj*) 4 mg IV Q6H PRN PRN Reason: NAUSEA Pantoprazole Sodium (Protonix Iv*) 40 mg IV Q12H [facility] Last Admin: 04/17/19 09:33 Dose: 40 mg Spironolactone (Aldactone Tab*) 50 mg PO DAILY [facility] Last Admin: 04/17/19 09:34 Dose: 50 mg Torsemide (Demadex*) 40 mg PO 0600,1200 [facility] Last Admin: 04/17/19 12:45 Dose: 40 mg Vital Signs - 8 hr 04/17/19 04/17/19 04/17/19 07:26 10:48 11:06 Temperature 97.9 F 98.0 F Pulse Rate 64 52 Respiratory 18 18 18 Rate Blood Pressure 116/39 126/48 (mmHg) O2 Sat by Pulse 97 98 Oximetry Oxygen Devices in Use Now: None Exam: Patient is sitting comfortably in bed with no acute distress. HEENT: Redness on right conjunctiva; bruises on face and neck. Chest: clear with no added sound heart: S1/S2 heard with murmur Abdomen: Distended and nontender. Pitting edema 3+. Coarse and thickened skin on lower abdomen. Normal BS heard Extremities: Scattered bruises on upper extremity. LE has chronic pigmentation and pitting edema up to thighs and overgrown toenails. mIdline in LUE. Neuro: Alert, oriented and co-operative. No astrexis noted. Result Diagrams: 04/13/19 05:21 04/17/19 05:30 Microbiology and Other Data: Microbiology 04/02/19 17:09 Stool Occult Blood (MALIHA) - Final Stool Assess/Plan/Problems-Billing Assessment: 73W with decompensated cirrhosis secondary to GODFREY, CKD, DM II, HTN, TIA, presents from nephrology clinic because of LEONILA and anemia. Found to have likely from volume overload, and anemia 2/2 upper GI bleed 2/2 to varices/gastritis- s/ p 5 U PRBC. Hospital course complicated by hepatic encephalopathy requiring ICU stay with placement of NG tube for lactulose. removed NG tube on 04/08. Now on aggressive diuresis. switched to oral - Patient Problems (1) Decompensated hepatic cirrhosis Current Visit: Yes Status: Acute Code(s): K72.90 - HEPATIC FAILURE, UNSPECIFIED WITHOUT COMA SNOMED Code(s): 769942520 Comment: -with HE, secondary to GODFREY. Initially concerned for HRS but did not improve after albumin challenge. MELD-Na score is 26 (at highest Cr) which carries 19.6 % risk of mortality in 90 days. Will recalculate MELD when Cr hits humberto -Portal HTN- Nadolol(low- dose) -HE: lactulose, rifaximin -concern for HRS: octreotride stopped on 04/16, IV lasix for volume overload; already received 2 doses of albumin -SBP prophylaxis: Iv ceftriaxone(day 7 on 04/10)- for total of 7 days; completed on 04/10. -appreciate GI input (2) Anemia Current Visit: Yes Status: Acute Code(s): D64.9 - ANEMIA, UNSPECIFIED SNOMED Code(s): 265441177 Comment: s/p 5U PRBC - from gastric varices and PUD - PPI BID - Octreotide for HRS- completed 14 days of octreotide -HB today is 8.2; low but stable -will monitor H&H (3) Heart failure with preserved ejection fraction Current Visit: Yes Status: Acute Code(s): I50.30 - UNSPECIFIED DIASTOLIC ( CONGESTIVE) HEART FAILURE SNOMED Code(s): 619085456 Comment: -Echo in 12/2018 shows Ef of 60-65% with grade 2 diastolic dysfunction. -Mild dilatation of atrium. -Mild -Has patent foramen ovale. -Is volume overloaded but likely from LEONILA and cirrhosis; less likely from HF (4) Acute kidney injury Current Visit: Yes Status: Acute Priority: High Onset Date: 03/19/14 Code(s): N17.9 - ACUTE KIDNEY FAILURE, UNSPECIFIED SNOMED Code(s): 80050096 Comment: -Likely from progression of CKD and volume overload. Concern for HRS, but improved with diuretics, did not improve with albumin. -switched to torsemide -Appreciate nephrology consult -completed octreotide(started from 04/03- total 14 days). received albuminX2 -Avoid lisinopril --Continue torsemide and spironolactone (5) Chronic pain syndrome Current Visit: Yes Status: Acute Code(s): G89.4 - CHRONIC PAIN SYNDROME SNOMED Code(s): 910869022 Comment: - Continue reduced dose oxycodone- 5 mg -has chronic back and knee pain (6) History of gout Current Visit: Yes Status: Acute Code(s): Z87.39 - PERSONAL HISTORY OF DISEASES OF THE MS SYS AND CONN TISS SNOMED Code(s): 885733999 Comment: - Continue allopurinol- renally dosed (7) Hypertension Current Visit: Yes Status: Acute Code(s): I10 - ESSENTIAL (PRIMARY) HYPERTENSION SNOMED Code(s): 47372570 Comment: -Continue lasix -iv hydralazine prn (8) Peptic ulcer disease Current Visit: Yes Status: Acute Code(s): K27.9 - PEPTIC ULC, SITE UNSP, UNSP AC OR CHR, W/O HEMOR OR PERF SNOMED Code(s): 27134120 Comment: - has gastric nodualrity with inflammation -continue PPI. (9) TIA (transient ischemic attack) Current Visit: Yes Status: Acute Code(s): G45.9 - TRANSIENT CEREBRAL ISCHEMIC ATTACK, UNSPECIFIED SNOMED Code(s): 412454925 Comment: - History TIA - Continue Statin, hold ASA (10) Diabetes mellitus Current Visit: Yes Status: Chronic Code(s): E11.9 - TYPE 2 DIABETES MELLITUS WITHOUT COMPLICATIONS SNOMED Code(s): 91816549 Comment: - A1c is 5.1 on feb 2019 -is on insulin glargine BID at home -Her insulin requirement on 04/13 is 16 U. -will start lantus 8 U and continue sliding scale. (11) DVT prophylaxis Current Visit: Yes Status: Acute Priority: Medium Onset Date: 03/19/14 Code(s): VGB9144 - SNOMED Code(s): 429035229 Comment: - No chemical DVT prophylaxis in GI bleeding - SCDs (12) DNR (do not resuscitate) Current Visit: Yes Status: Acute Comment: Status and Disposition: Inpatient likely PMRU-waiting for auth referrals sent Attending: Cindy Husain Attestation Documenting Resident: Isabel Motta Supervising Physician: Cindy Husain Attestation: This service has been performed in part by a resident under the direction of a teaching physician.I, Cindy Husain, performed the service, or was physically present during the critical, or st portions of the service, furnished by the resident. I participated in the management of the patient.
[2019-04-17] MEDS: Insulin GLARGINE(*) 1 UNITS UNIT SUBCUT SCH (17:41)
[2019-04-17] MEDS: Pantoprazole TAB * 40 MG TAB PO SCH (21:00)
[2019-04-18] MEDS: Torsemide TAB* 20 MG PO SCH ×2 (05:39→12:55)
[2019-04-18 06:51] LABS: BUN/Creatinine Ratio 21.7 (8-20); Calcium 8.4 mg/dL (8.6-10.3); EGFR African American 26.3 (>60); EGFR Non-African American 21.8 (>60); Potassium 3.6 mmol/L (3.5-5.0)
--- NOTE | 2019-04-18 07:13 | PN ---
Subjective Date of Service: 04/18/19 Interval History: HD 14 on 04/18 Transferred from ICU on 04/07 Overnight: No acute events Vitals stable patient seen and examined at bedside. Patient upset today because she could not sleep well last night. Otherwise no any complaint. Very motivated. worked on the russell yesterday with PT Objective Active Medications: Acetaminophen (Tylenol Tab*) 650 mg PO BID PRN PRN Reason: PAIN - MILD Albuterol/Ipratropium (Duoneb (Albuterol 2.5 Mg/Ipratropium 0.5 Mg)) 1 neb INH Q4H PRN PRN Reason: SHORTNESS OF BREATH Allopurinol (Zyloprim Tab*) 100 mg PO DAILY [facility] Last Admin: 04/17/19 09:34 Dose: 100 mg Dextrose (D50w Syringe 50 Ml*) 12.5 gm IV PUSH .FOR FS < 60 - SS PRN PRN Reason: FS < 60 Heparin Sodium (Porcine) (Heparin Flush Picc/Ml/Cvc(*)) 1 ml FLUSH 0600,1800 [facility] [place]; Protocol Last Admin: 04/18/19 05:42 Dose: 1 ml Insulin Glargine (Lantus(*)) 8 units SUBCUT Q24H [facility] Last Admin: 04/17/19 17:41 Dose: 8 units Insulin Human Lispro (Humalog*) 0 units SUBCUT AC [facility]; Protocol Last Admin: 04/17/19 17:41 Dose: 1 units Lactulose (Lactulose*) 20 ml PO TID [facility] Last Admin: 04/17/19 21:00 Dose: 20 ml Nadolol (Corgard Tab*) 20 mg PO DAILY [facility] [place] Last Admin: 04/17/19 09:33 Dose: 20 mg Pto: Dextran/Polyethylene Glycol/Povidone/Tetrahydrozoline"Eye Drops" 1 dose BOTH EYES Q6H PRN PRN Reason: ITCHY EYES Nystatin (Nystatin Cream*) 1 applic TOPICAL BID [facility] [place] Last Admin: 04/17/19 21:00 Dose: 1 applic Ondansetron HCl (Zofran Inj*) 4 mg IV Q6H PRN PRN Reason: NAUSEA Pantoprazole Sodium (Protonix Tab*) 40 mg PO BID [facility] [place] Last Admin: 04/17/19 21:00 Dose: 40 mg Spironolactone (Aldactone Tab*) 50 mg PO DAILY [facility] [place] Last Admin: 04/17/19 09:34 Dose: 50 mg Torsemide (Demadex*) 40 mg PO 0600,1200 [facility] Last Admin: 04/18/19 05:39 Dose: 40 mg Vital Signs - 8 hr 04/17/19 04/18/19 23:20 03:00 Temperature 97.5 F 97.8 F Pulse Rate 61 66 Respiratory 16 16 Rate Blood Pressure 122/43 110/39 (mmHg) O2 Sat by Pulse 99 98 Oximetry Oxygen Devices in Use Now: None Exam: Patient is sitting comfortably in bed with no acute distress. HEENT: Redness on right conjunctiva; bruises on face and neck. Chest: clear with no added sound heart: S1/S2 heard with murmur Abdomen: Distended and nontender. Pitting edema 2+. Coarse and thickened skin on lower abdomen. Normal BS heard Extremities: Scattered bruises on upper extremity. LE has chronic pigmentation and pitting edema up to thighs and overgrown toenails. mIdline in LUE. Neuro: Alert, oriented and co-operative. No astrexis noted. Result Diagrams: 04/13/19 05:21 04/18/19 06:00 Microbiology and Other Data: Microbiology 04/02/19 17:09 Stool Occult Blood (MALIHA) - Final Stool Assess/Plan/Problems-Billing Assessment: 73W with decompensated cirrhosis secondary to GODFREY, CKD, DM II, HTN, TIA, presents from nephrology clinic because of LEONILA and anemia. Found to have likely from volume overload, and anemia 2/2 upper GI bleed 2/2 to varices/gastritis- s/ p 5 U PRBC. Hospital course complicated by hepatic encephalopathy requiring ICU stay with placement of NG tube for lactulose. removed NG tube on 04/08. Now on diuresis. switched to oral - Patient Problems (1) Decompensated hepatic cirrhosis Current Visit: Yes Status: Acute Code(s): K72.90 - HEPATIC FAILURE, UNSPECIFIED WITHOUT COMA SNOMED Code(s): 778786859 Comment: -with HE, secondary to GODFREY. Initially concerned for HRS but did not improve after albumin challenge. MELD-Na score is 26 (at highest Cr) which carries 19.6 % risk of mortality in 90 days. Will recalculate MELD when Cr hits humberto -Portal HTN- Nadolol(low- dose) -HE: lactulose, -concern for HRS: octreotride stopped on 04/16,lasix for volume overload; already received 2 doses of albumin -SBP prophylaxis: Iv ceftriaxone(day 7 on 04/10)- for total of 7 days; completed on 04/10. -appreciate GI input (2) Anemia Current Visit: Yes Status: Acute Code(s): D64.9 - ANEMIA, UNSPECIFIED SNOMED Code(s): 420922515 Comment: s/p 5U PRBC - from gastric varices and PUD - PPI BID - Octreotide for HRS- completed 14 days of octreotide -HB today is 8.2; low but stable -will monitor H&H (3) Heart failure with preserved ejection fraction Current Visit: Yes Status: Acute Code(s): I50.30 - UNSPECIFIED DIASTOLIC ( CONGESTIVE) HEART FAILURE SNOMED Code(s): 791164450 Comment: -Echo in 12/2018 shows Ef of 60-65% with grade 2 diastolic dysfunction. -Mild dilatation of atrium. -Mild -Has patent foramen ovale. -Is volume overloaded but likely from LEONILA and cirrhosis; less likely from HF (4) Acute kidney injury Current Visit: Yes Status: Acute Priority: High Onset Date: 03/19/14 Code(s): N17.9 - ACUTE KIDNEY FAILURE, UNSPECIFIED SNOMED Code(s): 34500743 Comment: -Likely from progression of CKD and volume overload. Concern for HRS, but improved with diuretics, did not improve with albumin. -switched to torsemide -Appreciate nephrology consult -completed octreotide(started from 04/03- total 14 days). received albuminX2 -Avoid lisinopril --Continue torsemide and spironolactone (5) Chronic pain syndrome Current Visit: Yes Status: Acute Code(s): G89.4 - CHRONIC PAIN SYNDROME SNOMED Code(s): 782317607 Comment: - Continue reduced dose oxycodone- 5 mg -has chronic back and knee pain (6) History of gout Current Visit: Yes Status: Acute Code(s): Z87.39 - PERSONAL HISTORY OF DISEASES OF THE MS SYS AND CONN TISS SNOMED Code(s): 593559099 Comment: - Continue allopurinol- renally dosed (7) Hypertension Current Visit: Yes Status: Acute Code(s): I10 - ESSENTIAL (PRIMARY) HYPERTENSION SNOMED Code(s): 89686771 Comment: -Continue lasix -iv hydralazine prn (8) Peptic ulcer disease Current Visit: Yes Status: Acute Code(s): K27.9 - PEPTIC ULC, SITE UNSP, UNSP AC OR CHR, W/O HEMOR OR PERF SNOMED Code(s): 35035382 Comment: - has gastric nodualrity with inflammation -continue PPI. (9) TIA (transient ischemic attack) Current Visit: Yes Status: Acute Code(s): G45.9 - TRANSIENT CEREBRAL ISCHEMIC ATTACK, UNSPECIFIED SNOMED Code(s): 928345709 Comment: - History TIA - Continue Statin, hold ASA (10) Diabetes mellitus Current Visit: Yes Status: Chronic Code(s): E11.9 - TYPE 2 DIABETES MELLITUS WITHOUT COMPLICATIONS SNOMED Code(s): 78744254 Comment: - A1c is 5.1 on feb 2019 -is on insulin glargine BID at home -Her insulin requirement on 04/13 is 16 U. -on lantus 8 U and continue sliding scale. (11) DVT prophylaxis Current Visit: Yes Status: Acute Priority: Medium Onset Date: 03/19/14 Code(s): KXF3469 - SNOMED Code(s): 267000908 Comment: - No chemical DVT prophylaxis in GI bleeding - SCDs (12) DNR (do not resuscitate) Current Visit: Yes Status: Acute Comment: Status and Disposition: Inpatient waiting for PMRU auth Attending: Cindy Hsuain Attestation Documenting Resident: Isabel Motta Supervising Physician: Cindy Husain Attestation: This service has been performed in part by a resident under the direction of a teaching physician.I, Cindy Husain, performed the service, or was physically present during the critical, or st portions of the service, furnished by the resident. I participated in the management of the patient.
[2019-04-18] MEDS ORDERED: Potassium Chlor TAB* 20 MEQ TAB.ER PO ONE (08:42)
[2019-04-18] MEDS: Insulin LISPRO* 1 UNITS UNIT SUBCUT SCH ×2 (10:05→12:54)
[2019-04-18] MEDS: Nadolol TAB* 40 MG PO SCH (10:07)
[2019-04-18] MEDS: Spironolactone TAB* 25 MG PO SCH (10:08)
[2019-04-18] MEDS: Allopurinol TAB* 100 MG PO SCH (10:08)
[2019-04-18] MEDS: Nystatin CREAM* 15 GM TUBE TOPICAL SCH (10:09)
[2019-04-18] MEDS: Pantoprazole TAB * 40 MG TAB PO SCH (10:10)
[2019-04-18 11:05] VITALS: BP 138/45
--- NOTE | 2019-04-18 12:31 | PN ---
Progress Note - Progress Note Date of Service: 04/18/19 Note: cc: LEONILA on CKD Interval history: she is doing much better. seems to be less jaundiced. kidney function remains stable . responding well to current diuretics. BP is stable. physical exam: ROS: NAD , no fevers or chills , no abd pain, less leg swelling , no cp Temp Pulse Resp BP SpO2 FiO2 97.8 F 55 16 138/45 97 04/18/19 10:37 04/18/19 10:37 04/18/19 10:37 04/18/19 10:37 04/18/19 10:37 Constitutional: No acute distress, pleasant, conversant, much improved. Chest clear to auscultation with good respiratory effort Psychiatric: Alert and oriented 3. Skin: less Jaundiced meds. Acetaminophen (Tylenol Tab*) 650 mg PO BID PRN PRN Reason: PAIN - MILD Albuterol/Ipratropium (Duoneb (Albuterol 2.5 Mg/Ipratropium 0.5 Mg)) 1 neb INH Q4H PRN PRN Reason: SHORTNESS OF BREATH Allopurinol (Zyloprim Tab*) 100 mg PO DAILY [facility] Last Admin: 04/18/19 10:08 Dose: 100 mg Dextrose (D50w Syringe 50 Ml*) 12.5 gm IV PUSH .FOR FS < 60 - SS PRN PRN Reason: FS < 60 Heparin Sodium (Porcine) (Heparin Flush Picc/Ml/Cvc(*)) 1 ml FLUSH 0600,1800 [facility]S [facility]; Protocol Last Admin: 04/18/19 05:42 Dose: 1 ml Insulin Glargine (Lantus(*)) 8 units SUBCUT Q24H [facility]S [facility] Last Admin: 04/17/19 17:41 Dose: 8 units Insulin Human Lispro (Humalog*) 0 units SUBCUT AC [facility] 234 B[facility]S [facility]; Protocol Last Admin: 04/18/19 12:54 Dose: 2 units Lactulose (Lactulose*) 20 ml PO TID [facility] 234 B[facility]S [facility] Last Admin: 04/18/19 12:55 Dose: 20 ml Nadolol (Corgard Tab*) 20 mg PO DAILY [facility] 234 [facility]S [facility] Last Admin: 04/18/19 10:07 Dose: 20 mg Pto: Dextran/Polyethylene Glycol/Povidone/Tetrahydrozoline"Eye Drops" 1 dose BOTH EYES Q6H PRN PRN Reason: ITCHY EYES Nystatin (Nystatin Cream*) 1 applic TOPICAL BID [facility] 234 [facility]S [facility] Last Admin: 04/18/19 10:09 Dose: 1 applic Ondansetron HCl (Zofran Inj*) 4 mg IV Q6H PRN PRN Reason: NAUSEA Pantoprazole Sodium (Protonix Tab*) 40 mg PO BID [facility] 234 [facility]S [facility] Last Admin: 04/18/19 10:10 Dose: 40 mg Spironolactone (Aldactone Tab*) 50 mg PO DAILY [facility] 234 [facility]S [facility] Last Admin: 04/18/19 10:08 Dose: 50 mg Torsemide (Demadex*) 40 mg PO DAILY [facility] 234 BEDS AT [facility] Laboratory Last Values WBC 8.6 10^3/uL (3.5-10.8) 04/13/19 05:21 RBC 2.54 10^6 /uL (3.70-4.87) L 04/13/19 05:21 Hgb 8.2 g/dL (12.0-16.0) L 04/13/19 05:21 Hct 24 % (35-47) L 04/13/19 05:21 MCV 95 fL (80-97) 04/13/19 05:21 MCH 32 pg (27-31) H 04/13/19 05:21 MCHC 34 g/dL (31-36) 04/13/19 05:21 RDW 21 % (10-15) H 04/13/19 05:21 Plt Count 81 10^3/uL (150-450) L 04/13/19 05:21 MPV 8.4 fL (7.4-10.4) 04/13/19 05:21 Neut % (Auto) 59.7 % 04/12/19 06:21 Lymph % (Auto) 14.8 % 04/12/19 06:21 [place] % (Auto) 12.7 % 04/12/19 06:21 Eos % (Auto) 12.0 % 04/12/19 06:21 Baso % (Auto) 0.8 % 04/12/19 06:21 Absolute Neuts (auto) 4.7 10^3/ul (1.5-7.7) 04/12/19 06:21 Absolute Lymphs (auto) 1.2 10^3/ul (1.0-4.8) 04/12/19 06:21 Absolute Monos (auto) 1.0 10^3/ul (0-0.8) H 04/12/19 06:21 Absolute Eos (auto) 0.9 10^3/ul (0-0.6) H 04/12/19 06:21 Absolute Basos (auto) 0.1 10^3/ul (0-0.2) 04/12/19 06:21 Absolute Nucleated RBC 0.0 10^3/ul 04/12/19 06:21 Neutrophils % 56.0 % 04/04/19 13:13 Lymphocytes % 26.0 % 04/04/19 13:13 Monocytes % 10.0 % 04/04/19 13:13 Eosinophils % 8.0 % 04/04/19 13:13 Basophils % 1.0 % 04/02/19 13:39 Nucleated RBC % 0.2 04/12/19 06:21 Normal RBC Morphology Not Reportable 04/04/19 13:13 Polychromasia 1+ 04/04/19 13:13 Hypochromasia 1+ 04/03/19 06:20 Anisocytosis 1+ 04/09/19 06:20 Target Cells 1+ 04/09/19 06:20 Elliptocytes 1+ 04/04/19 13:13 Haptoglobin 21 mg/dL (30 - 200) L 04/05/19 07:30 Hem Pathologist Commnt 04/04/19 13:13 INR (Anticoag Therapy) 1.59 (0.82-1.09) H 04/05/19 15:17 ABG pH 7.37 (7.35-7.45) 04/05/19 02:45 ABG pCO2 26 mmHg (35-45) L 04/05/19 02:45 ABG pO2 68 mmHg (80-100) L 04/05/19 02:45 ABG HCO3 18.1 mmol/L (19-31) L 04/05/19 02:45 ABG O2 Saturation 96.8 % (94.0-98.0) 04/05/19 02:45 ABG Base Excess -8.6 mmol/L (-2.0-2.0) L 04/05/19 02:45 Sodium 133 mmol/L (135-145) L 04/18/19 06:00 Potassium 3.6 mmol/L (3.5-5.0) 04/18/19 06:00 Chloride 97 mmol/L (101-111) L 04/18/19 06:00 Carbon Dioxide 29 mmol/L (22-32) 04/18/19 06:00 Anion Gap 7 mmol/L (2-11) 04/18/19 06:00 BUN 48 mg/dL (6-24) H 04/18/19 06:00 Creatinine 2.21 mg/dL (0.51-0.95) H 04/18/19 06:00 Est GFR ( Amer) 26.3 (>60) 04/18/19 06:00 Est GFR (Non-Af Amer) 21.8 (>60) 04/18/19 06:00 BUN/Creatinine Ratio 21.7 (8-20) H 04/18/19 06:00 Glucose 126 mg/dL (70-100) H 04/18/19 06:00 POC Glucose (mg/dL) 155 mg/dL (70-100) H 04/18/19 11:53 Lactic Acid 1.8 mmol/L (0.5-2.0) 04/09/19 06:20 Calcium 8.4 mg/dL (8.6-10.3) L 04/18/19 06:00 Magnesium 2.0 mg/dL (1.9-2.7) 04/18/19 06:00 Iron 66 ug/dL (50-212) 04/02/19 13:39 TIBC 234 mcg/dL (250-450) L 04/02/19 13:39 % Saturation 28 % (15-55) 04/02/19 13:39 Unsat Iron Binding < 219 ug/dL 04/02/19 13:39 Transferrin 167 mg/dL (203-362) L 04/02/19 13:39 Ferritin 120.7 ng/mL (11-307) 04/02/19 13:39 Total Bilirubin 3.90 mg/dL (0.2-1.0) H 04/09/19 06:20 Direct Bilirubin 1.20 mg/dL (0.03-0.18) H 04/05/19 04:50 Indirect Bilirubin 2.2 mg/dL (0.3-1.0) H 04/05/19 04:50 AST 36 U/L (13-39) 04/09/19 06:20 ALT 15 U/L (7-52) 04/09/19 06:20 Alkaline Phosphatase 61 U/L (34-104) 04/09/19 06:20 Ammonia 85 mcmol/L (16-53) H 04/07/19 06:00 Lactate Dehydrogenase 196 U/L (140-271) 04/05/19 07:30 Total Protein 5.7 g/dL (6.4-8.9) L 04/09/19 06:20 Albumin 2.8 g/dL (3.2-5.2) L 04/09/19 06:20 Globulin 2.9 g/dL (2-4) 04/09/19 06:20 Albumin/Globulin Ratio 1.0 (1-3) 04/09/19 06:20 Vitamin B12 > 1450 pg/mL (180-914) H 04/02/19 13:39 Folate 8.04 ng/mL (>3.99) 04/02/19 13:39 Urine Color Yellow 04/04/19 14:20 Urine Appearance Clear 04/04/19 14:20 Urine pH 5.0 (5-9) 04/04/19 14:20 Ur Specific [place] 1.011 (1.010-1.030) 04/04/19 14:20 Urine Protein 1+(30 mg/dl) (Negative) A 04/04/19 14:20 Urine Ketones Negative (Negative) 04/04/19 14:20 Urine Blood 1+ (Negative) A 04/04/19 14:20 Urine Nitrate Negative (Negative) 04/04/19 14:20 Urine Bilirubin Negative (Negative) 04/04/19 14:20 Urine Urobilinogen Negative (Negative) 04/04/19 14:20 Ur Leukocyte Esterase Negative (Negative) 04/04/19 14:20 Urine WBC (Auto) Trace(0-5/hpf) (Absent) 04/04/19 14:20 Urine RBC (Auto) 2+(6-10/hpf) (Absent) A 04/04/19 14:20 Urine Bacteria Absent (Absent) 04/04/19 14:20 Hyaline Casts Present (Absent) A 04/04/19 14:20 U Sodium Concentration 23 mmol/L 04/03/19 20:45 Urine Glucose Negative (Negative) 04/04/19 14:20 Blood Type A Positive 04/09/19 06:20 Antibody Screen Negative 04/09/19 06:20 Crossmatch See Detail 04/09/19 06:20 Assessment and plan. 1. LEONILA on CKD. Kidney function back to baseline. 2. Volume overload improving. No changes in diuretics 3. Upper GI bleed. Stable. 4. Liver cirrhosis with portal hypertension. cont Same dose of diuretics. please have her follow up with nephrology after discharge
--- NOTE | 2019-04-18 12:58 | DS ---
Resident Discharge Summary Discharge Summary: Date of Admission: 04/02/19 Date of Discharge: 04/18/2019 Admitting MD: Denver Live MD Attending MD: Cindy Husain MD Primary Care Physician: Rafat Senior MD Medication on Discharge Cannabidiol (CBD) Extract (NF) [Epidiolex (NF)] 1 applic TOPICAL DAILY 01/01/19 [History Confirmed 04/02/19] Ferrous Gluconate TAB* [Fergon TAB*] 324 mg PO DAILY #30 tab 02/21/19 [Rx Confirmed 04/02/19] Nystatin CREAM* 1 applic TOPICAL BID 04/02/19 [History Confirmed 04/02/19] [place]-3 Fatty Acids (Nf) [Fish Oil (NF)] 1,000 mg PO DAILY 04/02/19 [History Confirmed 04/02/19] Acetaminophen TAB* [Tylenol TAB*] 650 mg PO BID PRN tab 04/18/19 [Rx] Allopurinol TAB* [Zyloprim 100 MG TAB*] 100 mg PO DAILY tab 04/18/19 [Rx] Insulin GLARGINE(*) [Lantus 100 unist/ml 10 ml VIAL (*)] 8 units SUBCUT Q24H unit 04/18/19 [Rx] Lactulose* 20 ml PO TID udc 04/18/19 [Rx] Nadolol TAB* [Corgard TAB*] 20 mg PO DAILY tab 04/18/19 [Rx] Pantoprazole TAB * [Protonix TAB*] 40 mg PO BID tab 04/18/19 [Rx] Spironolactone TAB* [Aldactone TAB 25 MG*] 50 mg PO DAILY tab 04/18/19 [Rx] Torsemide TAB* [Demadex 20 MG*] 40 mg PO DAILY tab 04/18/19 [Rx] Disposition: [facility] Condition: Improved Primary Diagnosis: 1. 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 Upper GI bleed secondary to GAVE 3. Hepatic encephalopathy 4. Acute Kidney Injury 5. Anemia Secondary Diagnosis: 1. Peptic Ulcer disease 2. Thrombocytopenia 3. Diabetes Mellitus 4. Chronic Pain Syndrome Diagnostic Imagin. Chest X-ray(04/03): Cardiomegaly with pulmonary interstitial edema. A right internal jugular catheter is noted with tip overlying the SVC. 2. US renal and bladder: Non-diagnostic study secondary to body habitus. 3. Brain CT: Limited study, No gross evidence of acute finding. 4. Chest Xray(04/05): Status post NG tube placement. Small bilateral pleural effusions. 5. Chest Xray(04/07): Obesity limits image quality. NG tube appears to pass to the stomach. Tip of right IJ central venous catheter is at the level of SVC. 6. Abdomen Xray: Obesity limits image quality. NG tube appears to pass to the stomach. The catheter tip is not well visualized. Pertinent Laboratory Results: On admission: Hb 6.8, MCV 103, Plt 105, Creatinine 4.87, BUN 57, Co2 17, Cl 113 On discharge: Hb 8.2, MCV 95, , Plt 81, Creatinine 2.21, BUN 48, Co2 29 Hospital Course: This is a pleasant 73 F with PMH of Cirrhosis 2/2 GODFREY, CKD, Hypertension, Diabetes, TIA, Anemia, GERD and Gout was sent from Nephrology clinic due to anemia and LEONILA. For details please review H and P dictated by Araceli Gage. EGD was done and was transfused 5 U PRBC. Hospital stay was complicated by Hepatic encephalopathy requiring ICU transfer where she was given lactulose via NG tube and central line placement and was transferred to floor after her mental status was improved. Her hospital course by problem are: 1. Decompensated Cirrhosis: Decompensated by portal hypertension and HE. She had GI bleed secondary to Hepatic gastropathy. So she was transfused 5 U PRBC and was started on PPI. For HE, she was treated in ICU with lactulose and rifaximin. She also completed course of ceftriaxone for SBP prophylaxis. Patient improved drastically and is currently stable. we have stopped her rifamixin but continue lactulose and nadolol. Her MELD score is 26. 2. LEONILA: Suspected secondary to HRS and volume overload with decreased perfusion. She was given 2 doses of albumin and octreotide for 14 days for HRS but did not require Midodrine. She was agressively diuresed with IV lasix and her creatinine improved dramatically. So, it is not quite clear what caused LEONILA ; presumed both. we will continue PO torsemide and spironolactone. Avoid NSAIDS and RADHA/ARB. 3. Anemia: Patient presented with Hb of 6.8. EGD showed small varices and GAVE along with gastric inflammation. So she was started on PPI. Her Hb is low but stable now. 4. Heart failure with preserved Ejection fraction: She is on diuretics. 5.Diabetes: Her HbA1c is 5.1 and she was on Insulin Glargine 15U BID. We have decreased her dose to 8U daily. 6. Chronic Pain: Her oxycodone has been decreased to oxycodone 5 mg BID prn but is not requiring it. She can take Tylenol and we will stop the oxycodone. CONSULTATION DURING HOSPITAL STAY: GI, Nephrology On the day of discharge, patient was asymptomatic, working well with physical therapy, tolerating PO well and well oriented to time,place and person. Follow Up Instructions: THINGS TO FOLLOW UP STATUS POST DISCHARGE 1. She should follow up with Nephrology for follow up creatinine. 2. She should follow up with GI for her cirrhosis and GI bleed. 3. She should follow up with her PCP in 1 week to re-assess her and blood work should be repeated. 4. If she develops changes in mental status she should be brought to ED. In case of an emergency or after clinic hours, please go to your nearest Emergency Department. You may also call the [facility] tester operator at ( [phone]. Attestation Documenting Resident: Isabel Motta Supervising Physician: Cindy Husain Attestation: This service has been performed in part by a resident under the direction of a teaching physician.I, Cindy Husain, performed the service, or was physically present during the critical, or st portions of the service, furnished by the resident. I participated in the management of the patient.
[2019-04-19] MEDS ORDERED: Torsemide TAB* 20 MG PO SCH (09:00)
== END 2019-04-18 15:00 | DRG 441 ==
LOC: ED 11:15 → MED 17:15 → ICU 04-05 10:03 → MED 04-07 19:10
PROVIDERS: ADMIT Internal Medicine; ATTEND Internal Medicine
PROC: 30233N1 Transfusion of Nonautologous Red Blood Cells into Peripheral Vein, Percutaneous Approach (ICD-10-PCS; 2019-04-02)
PROC: 0DJ08ZZ Inspection of Upper Intestinal Tract, Via Natural or Artificial Opening Endoscopic (ICD-10-PCS; principal; 2019-04-03 18:00)
PROC: 05HM33Z Insertion of Infusion Device into Right Internal Jugular Vein, Percutaneous Approach (ICD-10-PCS; 2019-04-03 18:00)
DX: K76.6 Portal hypertension (principal); K72.00 Acute and subacute hepatic failure without coma; K76.7 Hepatorenal syndrome; K31.811 Angiodysplasia of stomach and duodenum with bleeding; E72.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 urea cycle metabolism, unspecified; N17.9 Acute kidney failure, unspecified; D62 Acute posthemorrhagic anemia; Z68.42 Body mass index [BMI] 45.0-49.9, adult; Q21.1 Atrial septal defect; N18.4 Chronic kidney disease, stage 4 (severe); E87.2 Acidosis; I50.30 Unspecified diastolic (congestive) heart failure; I13.0 Hypertensive heart and chronic kidney disease with heart failure and stage 1 through stage 4 chronic kidney disease, or unspecified chronic kidney disease; K75.81 Nonalcoholic steatohepatitis (NASH); K74.69 Other cirrhosis of liver; E78.00 Pure hypercholesterolemia, unspecified; I25.10 Atherosclerotic heart disease of native coronary artery without angina pectoris; E11.22 Type 2 diabetes mellitus with diabetic chronic kidney disease; K21.9 Gastro-esophageal reflux disease without esophagitis; M17.0 Bilateral primary osteoarthritis of knee; I89.0 Lymphedema, not elsewhere classified; E66.01 Morbid (severe) obesity due to excess calories; K72.10 Chronic hepatic failure without coma; K27.9 Peptic ulcer, site unspecified, unspecified as acute or chronic, without hemorrhage or perforation; M81.0 Age-related osteoporosis without current pathological fracture; G25.81 Restless legs syndrome; D63.1 Anemia in chronic kidney disease; M10.9 Gout, unspecified; D69.6 Thrombocytopenia, unspecified; K31.89 Other diseases of stomach and duodenum; I86.4 Gastric varices; H91.90 Unspecified hearing loss, unspecified ear; Z97.4 Presence of external hearing-aid; Z98.42 Cataract extraction status, left eye; Z98.41 Cataract extraction status, right eye; Z86.73 Personal history of transient ischemic attack (TIA), and cerebral infarction without residual deficits; G89.4 Chronic pain syndrome; Z66 Do not resuscitate; E87.6 Hypokalemia
CPT/HCPCS: 36415; 36600; 70450; 71045; 74018; 76770; 80048; 80053; 81003; 81015; 82140; 82247; 82248; 82270; 82607; 82728; 82746; 82803; 83010; 83540; 83550; 83605; 83615; 83735; 84300; 85014; 85018; 85025; 85027; 85060; 85610; 86850; 86900; 86901; 86922; 87086; 93005; 99284; A9270-GY; J0360; J0696; J1642; J1940; J2250; J2354; J3010; J3475; P9040; P9047

== ENCOUNTER 2019-05-13 04:26 | Inpatient (IN) | payer MEDICARE ==
--- OUTSIDE RECORDS SUMMARY | 2019-05-13 04:35 | XMS REPORT | Continuity of Care Document ---
:1945 External Reference #:[id number] Author Name Lavern Dang MD (transmitted by agent of provider Danae Alford) Address [address] [place] [address] Care Team Providers Name Role Phone Rafat Senior MD - Family Medicine Care Team Information Curing Room Supervisor Problems Description No Information Available Social History [...] apply twice a day Unknown until resolved. [id number]/GM Cream Allopurinol 1 by mouth every Unknown [...] twice Unknown 20mg daily Capsules DR Shelton Solfemiar inject 20 units Unknown once daily 100Unit/ML Solution Pen-Inject Lisinopril 1 by mouth every Unknown 20mg day Tablets Aspirin 81 1 by mouth every Unknown 81mg day Tablets DR JERNIGAN Unknown [place]-3 Fish Oil take 1 tab by mouth [...] Mass Index) 57.5 kg/m2 Results Test Acquired Date Facility Test Result H/L Range Note Basic Metabolic 04/29/2019 [facility] Sodium 138 mmol/L Normal 135-145 1 Panel [address] [place] [address] [phone] Potassium 3.6 mmol/L Normal 3.5-5.0 Chloride 99 mmol/L Low 101-111 Co2 Carbon Dioxide 32 mmol/L Normal 22-32 Anion Gap 7 mmol/L Normal 2-11 Glucose 193 mg/dL High 70-100 Blood Urea Nitrogen 33 mg/dL High 6-24 Creatinine 1.86 mg/dL High 0.51-0.95 BUN/Creatinine Ratio 17.7 Normal 8-20 Calcium 8.3 mg/dL Low 8.6-10.3 Egfr Non- 26.6 >60 Egfr 32.1 >60 2 Comp Metabolic 04/23/2019 [facility] Sodium 139 mmol/L Normal 135-145 Panel [address] [place] [address] [phone] Potassium 3.7 mmol/L Normal 3.5-5.0 Chloride 99 mmol/L Low 101-111 Co2 Carbon Dioxide 31 mmol/L Normal 22-32 Anion Gap 9 mmol/L Normal 2-11 Glucose 166 mg/dL High 70-100 Blood Urea Nitrogen 38 mg/dL High 6-24 Creatinine 2.05 mg/dL High 0.51-0.95 BUN/Creatinine Ratio 18.5 Normal 8-20 Calcium 8.9 mg/dL Normal 8.6-10.3 Total Protein 6.3 g/dL Low 6.4-8.9 Albumin 2.7 g/dL Low 3.2-5.2 Globulin 3.6 g/dL Normal 2-4 Albumin/Globulin Ratio 0.8 Low 1-3 Total Bilirubin 4.10 mg/dL High 0.2-1.0 Alkaline Phosphatase 108 U/L High 34-104 Alt 20 U/L Normal 7-52 Ast 48 U/L High 13-39 Egfr Non- 23.7 >60 Egfr 28.7 >60 3 Laboratory test 04/23/2019 [facility] Ammonia 86 mcmol/L High 16-[address] [place] [address] [phone] Laboratory test 04/22/2019 [facility] Pathologist (SEE NOTE) 4, [address] [place] [address] [phone] Manual 04/22/2019 [facility] Neutrophil % 58.0 % Differential [address] [place] [address] [phone] Lymphocytes % 25.0 % Monocytes % 10.0 % Eosinophils % 6.0 % Variant Lymph % 1.0 % Normal 0-6 Hypochromasia 1+ Anisocytosis 2+ Target Cells 1+ Stomatocytes 1+ CBC Auto 04/22/2019 [facility] White Blood 5.7 10^3/uL Normal 3.5-10.[address] [place] [address] [phone] Red Blood Count 2.47 10^6/uL Low 3.70-4.87 Hemoglobin 8.3 g/dL Low 12.0-16.0 Hematocrit 24 % Low 35-47 Mean Corpuscular Volume 98 fL High 80-97 Mean Corpuscular Hemoglobin 34 pg High 27-31 Mean Corpuscular HGB Conc 34 g/dL Normal 31-36 Red Cell Distribution Width 24 % High 10-15 Platelet Count 132 10^3/uL Low 150-450 Mean Platelet Volume 9.8 fL Normal 7.4-10.4 Abs Neutrophils 2.8 10^3/uL Normal 1.5-7.7 Abs Lymphocytes 1.7 10^3/uL Normal 1.0-4.8 Abs Monocytes 0.7 10^3/uL Normal 0-0.8 Abs Eosinophils 0.3 10^3/uL Normal 0-0.6 Abs Basophils 0.1 10^3/uL Normal 0-0.2 Abs Nucleated RBC 0.0 10^3/uL Granulocyte % 50.2 % Lymphocyte % 29.8 % Monocyte % 12.8 % Eosinophil % 5.7 % Basophil % 1.5 % Nucleated Red Blood Cells % 0.0 Laboratory test 04/22/2019 [facility] Prealbumin 5 mg/dL Low 18-38 6 finding [address] [place] [address] [phone] Basic Metabolic 04/22/2019 [facility] Sodium 139 mmol/L Normal 135-145 Panel [address] [place] [address] [phone] Potassium 4.2 mmol/L Normal 3.5-5.0 Chloride 98 mmol/L Low 101-111 Co2 Carbon Dioxide 33 mmol/L High 22-32 Anion Gap 8 mmol/L Normal 2-11 Glucose 176 mg/dL High 70-100 Blood Urea Nitrogen 42 mg/dL High 6-24 Creatinine 2.08 mg/dL High 0.51-0.95 BUN/Creatinine Ratio 20.2 High 8-20 Calcium 8.9 mg/dL Normal 8.6-10.3 Egfr Non- 23.3 >60 Egfr 28.2 >60 7 Laboratory test 04/22/2019 [facility] Ammonia TNP mcmol/L 16- 53 8, 9 finding [address] [place] [address] [phone] Comp Metabolic 04/22/2019 [facility] Sodium 137 mmol/L Normal 135-145 Panel [address] [place] [address] [phone] Potassium 3.9 mmol/L Normal 3.5-5.0 Chloride 97 mmol/L Low 101-111 Co2 Carbon Dioxide 31 mmol/L Normal 22-32 Anion Gap 9 mmol/L Normal 2-11 Glucose 200 mg/dL High 70-100 Blood Urea Nitrogen 40 mg/dL High 6-24 Creatinine 2.04 mg/dL High 0.51-0.95 BUN/Creatinine Ratio 19.6 Normal 8-20 Calcium 8.8 mg/dL Normal 8.6-10.3 Total Protein 6.5 g/dL Normal 6.4-8.9 Albumin 2.8 g/dL Low 3.2-5.2 Globulin 3.7 g/dL Normal 2-4 Albumin/Globulin Ratio 0.8 Low 1-3 Total Bilirubin 4.50 mg/dL High 0.2-1.0 Alkaline Phosphatase 112 U/L High 34-104 Alt 21 U/L Normal 7-52 Ast 52 U/L High 13-39 Egfr Non- 23.9 >60 Egfr 28.9 >60 10 Type & Screen 04/02/2019 [facility] Patient Blood Type A Positive [address] [place], [place] [id number] [phone] Antibody Screen NEGATIVE Laboratory test 04/02/2019 [facility] Packed Cells SEE RESULTS [address] BELO <[place] [address] NOTE> [phone] Urine Culture And 03/27/2019 [facility] Urine Culture SEE RESULT [address] [place], [place] [id number] [phone] Laboratory test 03/27/2019 [facility] Pathologist (SEE NOTE) [address] [place], [place] [id number] [phone] Cell Morphology 03/27/2019 [facility] Macrocytosis 3+ [address] [place] [address] [phone] Anisocytosis 2+ Target Cells 1+ Laboratory test 03/27/2019 [facility] Ferritin 117.2 ng/mL Normal 11-[address] [place], [place] [id number] [phone] B-Type Natriuretic Peptide BNP 839 pg/mL High <=100 Iron & Iron Binding 03/27/2019 [facility] Iron 105 g/dL Normal 50-[address] [place], [place] [id number] [phone] Unsaturated Iron Binding < 209 g/dL Total Iron Binding Capacity 224 g/dL Low 250-450 Transferrin 160 mg/dL Low 203-362 % Iron Saturation 47 % Normal 15-55 Laboratory test 03/27/2019 [facility] Hemoglobin A1c 5.1 % Normal 4.0-5.[address] (Glyco HGB) [place], [place] [id number] [phone] Albumin 2.0 g/dL Low 3.2-5.2 Urinalysis Profile 03/27/2019 [facility] Urine Color Yellow [address] [place], [place] [address] [phone] Urine Appearance Clear Urine Specific [place] 1.012 Normal 1.010-1.030 Urine pH 5.0 Normal 5-9 Urine Urobilinogen Negative Negative Urine Ketones Negative Negative Urine Protein Negative Negative Urine Leukocytes Negative Negative Urine Blood 1+ Abnormal Negative Urine Nitrite Negative Negative Urine Bilirubin Negative Negative Urine Glucose Negative Negative Urine White Blood Cell Trace(0-5/hpf) Absent Urine Red Blood Cell 1+(3-5/hpf) Abnormal Absent Urine Bacteria Absent Absent Urine Squamous Epithelial Cell Present Abnormal Absent Basic Metabolic 03/27/2019 [facility] Sodium 138 mmol/L Normal 135-[address] [place] [address] [phone] Co2 Carbon Dioxide 17 mmol/L Low 22-32 Glucose 110 mg/dL High 70-100 Blood Urea Nitrogen 52 mg/dL High 6-24 Creatinine 5.41 mg/dL High 0.51-0.95 BUN/Creatinine Ratio 9.6 Normal 8-20 Calcium 8.3 mg/dL Low 8.6-10.3 Egfr Non- 7.7 >60 Egfr 9.4 >60 16 Potassium 5.5 mmol/L High 3.5-5.0 Chloride 113 mmol/L High 101-111 Anion Gap 8 mmol/L Normal 2-11 CBC Auto 03/27/2019 [facility] White Blood 6.7 10^3/uL Normal 3.5-10.[address] [place] [address] [phone] Red Blood Count 2.17 10^6/uL Low 3.70-4.87 Hemoglobin 7.2 g/dL Low 12.0-16.0 Hematocrit 22 % Low 35-47 Mean Corpuscular Volume 103 fL High 80-97 Mean Corpuscular Hemoglobin 33 pg High 27-31 Mean Corpuscular HGB Conc 32 g/dL Normal 31-36 Red Cell Distribution Width 23 % High 10-15 Platelet Count 95 10^3/uL Low 150-450 17 Mean Platelet Volume 8.9 fL Normal 7.4-10.4 Abs Neutrophils 4.3 10^3/uL Normal 1.5-7.7 Abs Lymphocytes 1.3 10^3/uL Normal 1.0-4.8 Abs Monocytes 0.6 10^3/uL Normal 0-0.8 Abs Eosinophils 0.4 10^3/uL Normal 0-0.6 Abs Basophils 0.1 10^3/uL Normal 0-0.2 Abs Nucleated RBC 0.0 10^3/uL Granulocyte % 63.6 % Lymphocyte % 19.9 % Monocyte % 9.4 % Eosinophil % 6.0 % Basophil % 1.1 % Nucleated Red Blood Cells % 0.2 Neph Routine 03/27/2019 [facility] Total Protein Random 43 mg/ dL [address] [place] [address] [phone] Creatinine Random Urine 117.28 mg/dL Laboratory 02/16/2019 [facility] Lactic Acid 5.3 Critical 0.5- 2.0 18 test finding [address] mmol/[place] [address] [phone] Influenza A & 02/16/2019 [facility] Flu AB (SEE 19, B Request [address] Disclaimer NOTE) 20 [place] [address] [phone] Influenza A Molecular NEGATIVE Negative Influenza B Molecular NEGATIVE Negative 21 1 [id number] 2 Because ethnic data is not always readily available, this report includes an eGFR for both -Americans and non- Americans. The National Kidney Disease Education Program (NKDEP) does not endorse the use of the MDRD equation for patients that are not between the ages of 18 and 70, are , have extremes of body size, muscle mass, or nutritional status, or are non- or non-. According to the National Kidney Foundation, irrespective of diagnosis, the stage of the disease is based on the level of kidney function: Stage Description GFR(mL/min/1.73 m(2)) 1 Kidney damage with normal or decreased GFR 90 2 Kidney damage with mild decrease in GFR 60-89 3 Moderate decrease in GFR 30-59 4 Severe decrease in GFR 15-29 5 Kidney failure <15 (or dialysis) 3 Because ethnic data is not always readily available, this report includes an eGFR for both -Americans and non- Americans. The National Kidney Disease Education Program (NKDEP) does not endorse the use of the MDRD equation for patients that are not between the ages of 18 and 70, are , have extremes of body size, muscle mass, or nutritional status, or are non- or non-. According to the National Kidney Foundation, irrespective of diagnosis, the stage of the disease is based on the level of kidney function: Stage Description GFR(mL/min/1.73 m(2)) 1 Kidney damage with normal or decreased GFR 90 2 Kidney damage with mild decrease in GFR 60-89 3 Moderate decrease in GFR 30-59 4 Severe decrease in GFR 15-29 5 Kidney failure <15 (or dialysis) 4 [id number] 5 Macrocytic anemia. Mild thrombocytopenia. No evidence of hemolytic process. Reviewed by Mónica Snow MD 6 [id number] 7 Because ethnic data is not always readily available, this report includes an eGFR for both -Americans and non- Americans. The National Kidney Disease Education Program (NKDEP) does not endorse the use of the MDRD equation for patients that are not between the ages of 18 and 70, are , have extremes of body size, muscle mass, or nutritional status, or are non- or non-. According to the National Kidney Foundation, irrespective of diagnosis, the stage of the disease is based on the level of kidney function: Stage Description GFR(mL/min/1.73 m(2)) 1 Kidney damage with normal or decreased GFR 90 2 Kidney damage with mild decrease in GFR 60-89 3 Moderate decrease in GFR 30-59 4 Severe decrease in GFR 15-29 5 Kidney failure <15 (or dialysis) 8 [id number] 9 Unable to report test result due to hemolysis. 10 Because ethnic data is not always readily available, this report includes an eGFR for both -Americans and non- Americans. The National Kidney Disease Education Program (NKDEP) does not endorse the use of the MDRD equation for patients that are not between the ages of 18 and 70, are , have extremes of body size, muscle mass, or nutritional status, or are non- or non-. According to the National Kidney Foundation, irrespective of diagnosis, the stage of the disease is based on the level of kidney function: Stage Description GFR(mL/min/1.73 m(2)) 1 Kidney damage with normal or decreased GFR 90 2 Kidney damage with mild decrease in GFR 60-89 3 Moderate decrease in GFR 30-59 4 Severe decrease in GFR 15-29 5 Kidney failure <15 (or dialysis) 11 KIDNEY ISSUES PER PT 12 SEE RESULTS BELOW [id number] AP PC TRANSFUSED 04/02/19 2324 [id number] AP PC TRANSFUSED 04/03/19 0936 [id number] AP PC TRANSFUSED 04/04/19 0628 [id number] AP PC TRANSFUSED 04/04/19 0935 13 SEE RESULT BELOW Name: BONNIE AGUILERA : [address]: Marlon Beard MD Acct: [id number] Unit: [id number] AGE: 73 Location: LAB Re03/27/19 SEX: F Status: REG REF SPEC: [id number] [place]: 03/27/19-1505 [facility] DR: Marlon Beard MD REQ: [id number] RECD: 03/27/19-732 STATUS: COMP _ SOURCE: URINE SPDESC: ORDERED: Urine Culture Procedure Result Reported Site Urine Culture Final 03/28/19- 1406 ML No Growth (<1,000 CFU/mL) * ML - Main Lab . END OF REPORT DEPARTMENT OF PATHOLOGY, [address] [place] [address] Nic Weber M.D. Director [facility] # [id number] 14 Moderate macrocytic anemia with thrombocytopenia noted. Clinical correlation suggested. Additional studies is warranted. Reviewed by Dr. Weber 15 Therapeutic target for the treatment of diabetes mellitus patients is <7% HBA1C, and in selective patients <6.0%. Please refer to [place] [employer] diabetic care guidelines for further information. 16 Because ethnic data is not always readily available, this report includes an eGFR for both -Americans and non- Americans. The National Kidney Disease Education Program (NKDEP) does not endorse the use of the MDRD equation for patients that are not between the ages of 18 and 70, are , have extremes of body size, muscle mass, or nutritional status, or are non- or non-. According to the National Kidney Foundation, irrespective of diagnosis, the stage of the disease is based on the level of kidney function: Stage Description GFR(mL/min/1.73 m(2)) 1 Kidney damage with normal or decreased GFR 90 2 Kidney damage with mild decrease in GFR 60-89 3 Moderate decrease in GFR 30-59 4 Severe decrease in GFR 15-29 5 Kidney failure <15 (or dialysis) 17 Consistent with Previous Results Reported on 02/19/19. 18 Critical Result LACT:5.3 Called to [id number] at: 22:01:07 by:[id number] Read back by:[email or web address] JUSTINO Severe Sepsis and Septic Shock Management Bundle Measure requires all lactic acids initially measuring >2.0 mmol/L be repeated. Critical Result LACT:5.3 Called to [id number] at: 22:01:07 by:[id number] Read back by:[id number] [facility] Severe Sepsis and Septic Shock Management Bundle Measure requires all lactic acids initially measuring >2.0 mmol/L be repeated. 19 NASAL 20 Suboptimal collection technique may reduce sensitivity of test. Refer to the [facility] Test Catalog for collection information: [email or web address] As with all diagnostic procedures, the laboratory results obtained should be used in conjunction with other clinical information available to the physician, including confirmation by another method, as applicable. 21 Deck Molder: [id number] Procedures Date Code Description Status 02/18/2019 79297 Moderate Sedation Services; Same Phys Intl 15 Mins; PT >= Completed 5 Years 02/18/2019 77071 Color Flow Doppler/Interp & Reprt Completed 02/18/2019 55859 Pulse Wave/Continuous-Interp.RPT Completed 02/18/2019 31993 Echocardiography, Transesophageal, Real Time W/Image 2D Completed W/W/O M-M 01/02/2019 11729 ECHO Transthorasic Realtime 2D W Doppler & Color Flow Hosp Completed Medical Devices Description No Information Available Encounters Type Date Location Provider Dx Diagnosis Office Visit 04/29/2019 Elizabeth Celina Dang MD R54 Age-related physical 9:00a debility N18.4 Chronic kidney disease, stage 4 (severe) D63.1 Anemia in chronic kidney disease K74.60 Unspecified cirrhosis of liver K29.61 Other gastritis with bleeding R18.8 Other ascites E11.22 Type 2 diabetes mellitus w diabetic chronic kidney disease Z68.43 Body mass index (BMI) 50.0-59.9, adult Office Visit 04/21/2019 9:30a Elizabeth Celina Dang, R54 Age- related physical MD debility N18.4 Chronic kidney disease, stage 4 (severe) D63.1 Anemia in chronic kidney disease K74.60 Unspecified cirrhosis of liver K29.61 Other gastritis with bleeding R18.8 Other ascites K72.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, unspecified without coma E11.22 Type 2 diabetes mellitus w diabetic chronic kidney disease Z68.43 Body mass index (BMI) 50.0-59.9, adult Office Visit 04/18/2019 [facility] K72.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, 3:26p theron Escalante MD unspecified Hospitalists without coma N17.9 Acute kidney failure, unspecified I50.9 Heart failure, unspecified D64.9 Anemia, unspecified E11.9 Type 2 diabetes mellitus without complications G89.29 Other chronic pain Office Visit 04/18/2019 10:16a [facility] Nephrology Meche An, N17.9 Acute kidney MD failure, unspecified N18.4 Chronic kidney disease, stage 4 (severe) Office Visit 04/17/2019 [facility] K72.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, 3:26p Assoc,theron Motta MD unspecified Hospitalists without coma N17.9 Acute kidney failure, unspecified D64.9 Anemia, unspecified G89.4 Chronic pain syndrome Office Visit 04/16/2019 3:25p [facility] K72.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, Assoc,theron Husain MD unspecified Hospitalists without coma D64.9 Anemia, unspecified N17.9 Acute kidney failure, unspecified I50.30 Unspecified diastolic (congestive) heart failure K27.9 Peptic ulc, site unsp, unsp as ac or chr, w/o hemor or perf 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 N18.9 Chronic kidney disease, unspecified Office Visit 04/15/2019 3:25p [facility] Katey Lopez, K72.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, Assoctheron MD unspecified Hospitalists without coma N17.9 Acute kidney failure, unspecified D64.9 Anemia, unspecified G89.4 Chronic pain syndrome Office Visit 04/15/2019 10:15a [facility] Nephrology Meche An, N17.9 Acute kidney MD failure, unspecified Office Visit 04/14/2019 3:25p [facility] K72.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, Asstheron méndez MD unspecified Hospitalists without coma N17.9 Acute kidney failure, unspecified D64.9 Anemia, unspecified K27.9 Peptic ulc, site unsp, unsp as ac or chr, w/o hemor or perf Office Visit 04/14/2019 [facility] Nephrology Meche An, N17.9 Acute kidney 10:15a MD failure, unspecified Office Visit 04/13/2019 [facility] Nephrology Marlon Gutierrez N17.9 Acute kidney 1:52p MD Kisha failure, unspecified Office Visit 04/13/2019 [facility] Cindy Husain, K72.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, 3:24p theron Escalante MD unspecified Hospitalists without coma N17.9 Acute kidney failure, unspecified D64.9 Anemia, unspecified K27.9 Peptic ulc, site unsp, unsp as ac or chr, w/o hemor or perf G89.4 Chronic pain syndrome Z79.4 [facility] (current) use of insulin E11.9 Type 2 diabetes mellitus without complications Office Visit 04/12/2019 [facility] Nephrology Marlon Gutierrez N17.9 Acute kidney 1:52p MD Kisha failure, unspecified Office Visit 04/11/2019 [facility] Nephrology Marlon Gutierrez N17.9 Acute kidney 1:52p MD Kisha failure, unspecified Office Visit 04/11/2019 [facility] K72.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, 3:23p theron Escalante MD unspecified Hospitalists without coma N17.9 Acute kidney failure, unspecified D64.9 Anemia, unspecified K27.9 Peptic ulc, site unsp, unsp as ac or chr, w/o hemor or perf G89.4 Chronic pain syndrome Office Visit 04/10/2019 3:23p [facility] K72.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, Assoc,theron Finnegan D.O. 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 I50.30 Unspecified diastolic (congestive) heart failure E11.9 Type 2 diabetes mellitus without complications Office Visit 04/10/2019 [facility] Nephrology Marlon Gutierrez N17.9 Acute kidney 9:09a MD Kisha failure, unspecified Office Visit 04/09/2019 [facility] Katey Lopez MD K72.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, 3:23p Assocpc unspecified Hospitalists without coma D64.9 Anemia, unspecified N17.9 Acute kidney failure, unspecified G89.4 Chronic pain syndrome K27.9 Peptic ulc, site unsp, unsp as ac or chr, w/o hemor or perf 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 I50.30 Unspecified diastolic (congestive) heart failure Z79.4 [facility] (current) use of insulin E11.22 Type 2 diabetes mellitus w diabetic chronic kidney disease N18.9 Chronic kidney disease, unspecified Office Visit 04/08/2019 3:22p [facility] Katey Lopez K72.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, Assoc,pc unspecified Hospitalists without coma N17.9 Acute kidney failure, unspecified E87.2 Acidosis D63.8 Anemia in other chronic diseases classified elsewhere I50.30 Unspecified diastolic (congestive) heart failure 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 K27.9 Peptic ulc, site unsp, unsp as ac or chr, w/o hemor or perf E11.22 Type 2 diabetes mellitus w diabetic chronic kidney disease N18.9 Chronic kidney disease, unspecified Office Visit 04/08/2019 10:39a [facility] Nephrology Marlon Gutierrez N17.9 Acute kidney MD Kisha failure, unspecified Office Visit 04/07/2019 9:20a [facility]phrology Marlon Gutierrez N17.9 Acute kidney MD Kisha failure, unspecified Office Visit 04/07/2019 1:48p [facility] Diana Vega MD K72.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, unspecified without coma E72.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, unspecified K75.81 Nonalcoholic steatohepatitis ([place]) I10 Essential (primary) hypertension Office Visit 04/06/2019 1:47p [facility] Rosaline K72.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 , 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, 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 without coma E72.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, unspecified K75.81 Nonalcoholic steatohepatitis ([place]) I10 Essential (primary) hypertension Office Visit 04/05/2019 1:47p [facility] Rosaline K72.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 , 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, 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 without coma D63.8 Anemia in other chronic diseases classified elsewhere E72.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, unspecified E87.70 Fluid overload, unspecified Office Visit 04/05/2019 10:13a [facility] Nephrology Meche An, N17.9 Acute kidney MD failure, unspecified N18.4 Chronic kidney disease, stage 4 (severe) Office Visit 04/04/2019 1:47p [facility] Lobo D64.9 Anemia, Assoc,CAMILO Vaughn unspecified Hospitalists N17.9 Acute kidney failure, unspecified K72.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, unspecified without coma K75.81 Nonalcoholic steatohepatitis ([place]) Office Visit 04/04/2019 2:53p [facility] Nephrology Meche An, N17.9 Acute kidney MD failure, unspecified N18.4 Chronic kidney disease, stage 4 (severe) E87.70 Fluid overload, unspecified D63.1 Anemia in chronic kidney disease Office Visit 04/03/2019 1:46p [facility] Lobo D63.1 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, CAMILO Ceballos chronic kidney Hospitalists disease N17.9 Acute kidney failure, unspecified E11.22 Type 2 diabetes mellitus w diabetic chronic kidney disease N18.9 Chronic kidney disease, unspecified Office Visit 04/03/2019 2:35p [facility]phrology Marlon Gutierrez N17.9 Acute kidney MD Kisha failure, unspecified D63.1 Anemia in chronic kidney disease Office Visit 04/02/2019 3:11p [facility] D63.1 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, Merari, RN OCCUPATIONAL chronic kidney Hospitalists disease N17.9 Acute kidney failure, unspecified 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 chronic kidney 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/unsp [facility] kdny N18.9 Chronic kidney disease, unspecified Office Visit 03/27/2019 2:00p [facility] Nephrology Marlon Gutierrez N18.4 Chronic kidney MD Kisha disease, stage 4 (severe) K74.60 Unspecified cirrhosis of liver E11.22 Type 2 diabetes mellitus w diabetic chronic kidney disease E87.70 Fluid overload, unspecified R06.02 Shortness of breath Z68.43 Body mass index (BMI) 50.0-59.9, adult Office Visit 02/21/2019 10:17a [facility] Jessica Luther R78.81 Bacteremia Infectious Diseases Mery Bowen I89.0 Lymphedema, not elsewhere classified Office Visit 02/21/2019 [facility] Jessica Courtney, A40.8 Other 1:14p Assoc,pc RN OCCUPATIONAL streptococcal Hospitalists sepsis K72.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, unspecified without coma R18.8 Other ascites D63.1 Anemia in chronic kidney disease N18.9 Chronic kidney disease, unspecified 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 E78.5 Hyperlipidemia, unspecified Office Visit 02/20/2019 [facility] A49.1 Streptococcal 1:13p Assoc,theron Olivera MD infection, Hospitalists unspecified site D64.9 Anemia, unspecified 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 Jessica Luther R78.81 Bacteremia Infectious Diseases Mery Bowen I89.0 Lymphedema, not elsewhere classified Office Visit 02/19/2019 [facility] A49.1 Streptococcal 1:13p Assoc,theron Olivera MD infection, Hospitalists unspecified site N17.9 Acute kidney failure, unspecified D64.9 Anemia, unspecified I86.4 Gastric varices D69.6 Thrombocytopenia, unspecified E11.9 Type 2 diabetes mellitus without complications G89.4 Chronic pain syndrome Office Visit 02/18/2019 [facility] Janelle A49.1 Streptococcal 1:12p Assoc,theron Devi DO infection, Hospitalists unspecified site R65.20 Severe sepsis without septic shock D64.9 Anemia, unspecified N17.9 Acute kidney failure, unspecified D69.6 Thrombocytopenia, unspecified E11.9 Type 2 diabetes mellitus without complications G89.4 Chronic pain syndrome R53.1 Weakness Office Visit 02/17/2019 10:14a [facility] Jessica Luther R78.81 Bacteremia Infectious Diseases Mery Bowen I89.0 Lymphedema, not elsewhere classified E11.22 Type 2 diabetes mellitus w diabetic chronic kidney disease N18.9 Chronic kidney disease, unspecified Office Visit 02/17/2019 1:12p [facility] Janelle Devi, R78.81 Bacteremia Assoc,pc Hospitalists DO R65.20 Severe sepsis without septic shock N17.9 Acute kidney failure, unspecified D64.9 Anemia, unspecified D69.6 Thrombocytopenia, unspecified R53.1 Weakness G89.4 Chronic pain syndrome Office Visit 02/16/2019 [facility] Emily R50.9 Fever, 1:11p Assoc,pc Martin, RN OCCUPATIONAL unspecified Hospitalists R53.1 Weakness N17.9 Acute kidney failure, unspecified D64.9 Anemia, unspecified Office Visit 01/03/2019 7:00a [facility] Rizwan Flores, R47.01 Aphasia Q21.1 Atrial septal defect E78.5 Hyperlipidemia, unspecified E66.9 Obesity, unspecified Office Visit 01/03/2019 11:01a [facility] Poppy Heather, G45.9 Transient Assoc,pc RN OCCUPATIONAL cerebral ischemic Hospitalists attack, unspecified N17.9 Acute kidney failure, unspecified 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 N18.3 Chronic kidney disease, stage 3 (moderate) Office Visit 01/01/2019 7:00a [facility] Rizwan Flores, R47.01 Aphasia R41.82 Altered mental status, unspecified Office Visit 01/01/2019 [facility] Jessica FelicianoJayjay, G45.9 Transient 11:01a Assoc,pc RN OCCUPATIONAL cerebral ischemic Hospitalists attack, unspecified D69.6 Thrombocytopenia, unspecified D64.9 Anemia, unspecified R79.89 Other specified abnormal findings of blood chemistry Assessments Date Code Description Provider 05/01/2019 E11.22 Type 2 diabetes mellitus with diabetic Lavern Dang MD chronic kidney disease 05/01/2019 N18.4 Chronic kidney disease, stage 4 (severe) Lavern Dang MD 05/01/2019 D63.1 Anemia in chronic kidney disease Lavern Dang MD 05/01/2019 K74.60 Unspecified cirrhosis of liver Lavern Dang MD 05/01/2019 R18.8 Other ascites Lavern Dang MD 05/01/2019 R54 Age-related physical debility Lavern Dang MD 05/01/2019 Z68.43 Body mass index (BMI) 50.0-59.9, adult Lavern Dang MD 05/01/2019 K29.61 Other gastritis with bleeding Lavern Dang MD 04/29/2019 R54 Age-related physical debility Lavern Dang MD 04/29/2019 N18.4 Chronic kidney disease, stage 4 (severe) Lavern Dang MD 04/29/2019 D63.1 Anemia in chronic kidney disease Lavern Dang MD 04/29/2019 K74.60 Unspecified cirrhosis of liver Lavern Dang MD 04/29/2019 K29.61 Other gastritis with bleeding Lavern Dang MD 04/29/2019 R18.8 Other ascites Lavern Dang MD 04/29/2019 E11.22 Type 2 diabetes mellitus with diabetic Lavern Dang MD chronic kidney disease 04/29/2019 Z68.43 Body mass index (BMI) 50.0-59.9, adult Lavern Dang MD 04/21/2019 R54 Age-related physical debility Lavern Dang MD 04/21/2019 N18.4 Chronic kidney disease, stage 4 (severe) Lavern Dang MD 04/21/2019 D63.1 Anemia in chronic kidney disease Lavern Dang MD 04/21/2019 K74.60 Unspecified cirrhosis of liver Lavern Dang MD 04/21/2019 K29.61 Other gastritis with bleeding Lavern Dang MD 04/21/2019 R18.8 Other ascites Lavern Dang MD 04/21/2019 K72.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, unspecified without coma Lavern Dang MD 04/21/2019 E11.22 Type 2 diabetes mellitus with diabetic Lavern Dang MD chronic kidney disease 04/21/2019 Z68.43 Body mass index (BMI) 50.0-59.9, adult Lavern Dang MD 04/18/2019 K72.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, unspecified without coma Isabel Motta MD 04/18/2019 N17.9 Acute kidney failure, unspecified Isabel Motta MD 04/18/2019 I50.9 Heart failure, unspecified Isabel Motat MD 04/18/2019 D64.9 Anemia, unspecified Isabel Motta MD 04/18/2019 N17.9 Acute kidney failure, unspecified Meche An MD 04/18/2019 E11.9 Type 2 diabetes mellitus without Isabel Motta MD complications 04/18/2019 G89.29 Other chronic pain Isabel Motta MD 04/18/2019 N18.4 Chronic kidney disease, stage 4 (severe) Meche An MD 04/17/2019 K72.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, unspecified without coma Isabel Motta MD 04/17/2019 N17.9 Acute kidney failure, unspecified Isabel Motta MD 04/17/2019 D64.9 Anemia, unspecified Isabel Motta MD 04/17/2019 G89.4 Chronic pain syndrome Isabel Motta MD 04/16/2019 K72.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, unspecified without coma Cindy Husain MD 04/16/2019 D64.9 Anemia, unspecified Cindy Husain MD 04/16/2019 N17.9 Acute kidney failure, unspecified Cindy Husain MD 04/16/2019 I50.30 Unspecified diastolic (congestive) heart Cindy Husain MD failure 04/16/2019 K27.9 Peptic ulcer, site unspecified, Cindy Husain MD unspecified as acute or chronic, without hemorrhage or perforation 04/16/2019 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 and stage 1 through stage 4 chronic kidney disease, or unspecified chronic kidney disease 04/16/2019 E11.22 Type 2 diabetes mellitus with diabetic Cindy Husain MD chronic kidney disease 04/16/2019 N18.9 Chronic kidney disease, unspecified Cindy Husain MD 04/15/2019 K72.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, unspecified without coma Katey Lopez MD 04/15/2019 N17.9 Acute kidney failure, unspecified Meche An MD 04/15/2019 N17.9 Acute kidney failure, unspecified Katey Lopez MD 04/15/2019 D64.9 Anemia, unspecified Katey Lopez MD 04/15/2019 G89.4 Chronic pain syndrome Katey Lopez MD 04/14/2019 K72.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, unspecified without coma Isabel Motta MD 04/14/2019 N17.9 Acute kidney failure, unspecified Meche An MD 04/14/2019 N17.9 Acute kidney failure, unspecified Isabel Motta MD 04/14/2019 D64.9 Anemia, unspecified Isabel Motta MD 04/14/2019 K27.9 Peptic ulcer, site unspecified, Isabel Motta MD unspecified as acute or chronic, without hemorrhage or perforation 04/13/2019 K72.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, unspecified without coma Cindy Husain MD 04/13/2019 N17.9 Acute kidney failure, unspecified Marlon Beard MD 04/13/2019 N17.9 Acute kidney failure, unspecified Cindy Husain MD 04/13/2019 D64.9 Anemia, unspecified Cindy Husain MD 04/13/2019 K27.9 Peptic ulcer, site unspecified, Cindy Husain MD unspecified as acute or chronic, without hemorrhage or perforation 04/13/2019 G89.4 Chronic pain syndrome Cindy Husain MD 04/13/2019 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 Cindy Husani MD 04/13/2019 E11.9 Type 2 diabetes mellitus without Cindy Husain MD complications 04/12/2019 K72.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, unspecified without coma Isabel Motta MD 04/12/2019 N17.9 Acute kidney failure, unspecified Marlon Beard MD 04/12/2019 D64.9 Anemia, unspecified Isabel Motta MD 04/12/2019 N17.9 Acute kidney failure, unspecified Isabel Motta MD 04/12/2019 K27.9 Peptic ulcer, site unspecified, Isabel Motta MD unspecified as acute or chronic, without hemorrhage or perforation 04/12/2019 G89.4 Chronic pain syndrome Isabel Motta MD 04/11/2019 K72.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, unspecified without coma Isabel Motta MD 04/11/2019 N17.9 Acute kidney failure, unspecified Marlon Beard MD 04/11/2019 N17.9 Acute kidney failure, unspecified Isabel Motta MD 04/11/2019 D64.9 Anemia, unspecified Isabel Motta MD 04/11/2019 K27.9 Peptic ulcer, site unspecified, Isabel Motta MD unspecified as acute or chronic, without hemorrhage or perforation 04/11/2019 G89.4 Chronic pain syndrome Isabel Motta MD 04/10/2019 K72.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, unspecified without coma Rosio Kain, D.O. 04/10/2019 D64.9 Anemia, unspecified Rosio Kain, D.O. 04/10/2019 N17.9 Acute kidney failure, unspecified Marlon Beard MD 04/10/2019 N17.9 Acute kidney failure, unspecified Rosio Kain, D.O. 04/10/2019 G89.4 Chronic pain syndrome Rosio Kain, D.O. 04/10/2019 K27.9 Peptic ulcer, site unspecified, Rosio Kain, D.O. unspecified as acute or chronic, without hemorrhage or perforation 04/10/2019 I11.0 Hypertensive heart disease with heart Rosio Kain, D.O. failure 04/10/2019 I50.30 Unspecified diastolic (congestive) heart Rosio Kain, D.O. failure 04/10/2019 E11.9 Type 2 diabetes mellitus without Rosio Kain, D.O. 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 and stage 1 through stage 4 chronic kidney disease, or unspecified chronic kidney disease 04/09/2019 I50.30 Unspecified diastolic (congestive) heart Katey Lopez MD failure 04/09/2019 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 Katey Lopez MD 04/09/2019 E11.22 Type 2 diabetes mellitus with diabetic Katey Lopez MD chronic kidney disease 04/09/2019 N18.9 Chronic kidney disease, unspecified Katey Lopez MD 04/08/2019 K72.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, unspecified without coma Katey Lopez MD 04/08/2019 N17.9 Acute kidney failure, unspecified Marlon Beard MD 04/08/2019 N17.9 Acute kidney failure, unspecified Katey Lopez MD 04/08/2019 E87.2 Acidosis Katey Lopez MD 04/08/2019 D63.8 Anemia in other chronic diseases Katey Lopez MD classified elsewhere 04/08/2019 I50.30 Unspecified diastolic (congestive) heart Katey Lopez MD failure 04/08/2019 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 and stage 1 through stage 4 chronic kidney disease, or unspecified chronic kidney disease 04/08/2019 K27.9 Peptic ulcer, site unspecified, Katey Lopez MD unspecified as acute or chronic, without hemorrhage or perforation 04/08/2019 E11.22 Type 2 diabetes mellitus with diabetic Katey Lopez MD chronic kidney disease 04/08/2019 N18.9 Chronic kidney disease, unspecified Katey Lopez MD 04/07/2019 K72.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, unspecified without coma Diana Vega MD 04/07/2019 N17.9 Acute kidney failure, unspecified Marlon Beard MD 04/07/2019 E72.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, Diana Vega MD unspecified 04/07/2019 K75.81 Nonalcoholic steatohepatitis ([place]) Diana Vega MD 04/07/2019 I10 Essential (primary) hypertension Diana Vega MD 04/06/2019 K72.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, unspecified without coma Rosaline Stocking , 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 [employer]UDIES 04/06/2019 E72.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, Rosaline Stocking, 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 04/06/2019 K75.81 Nonalcoholic steatohepatitis ([place]) Rosaline Stocking, 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 [employer] 04/06/2019 I10 Essential (primary) hypertension Rosaline Stocking, 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 [employer] 04/05/2019 N17.9 Acute kidney failure, unspecified Meche An MD 04/05/2019 K72.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, unspecified without coma Rosaline Stocking , 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 [employer] 04/05/2019 N18.4 Chronic kidney disease, stage 4 (severe) Meche An MD 04/05/2019 D63.8 Anemia in other chronic diseases Rosaline Stocking, 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 [employer] classified elsewhere 04/05/2019 E72.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, Rosaline Stocking, 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 04/05/2019 E87.70 Fluid overload, unspecified Rosaline Stocking, 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 [employer] 04/04/2019 D64.9 Anemia, unspecified CAMILO Cabezas 04/04/2019 N17.9 Acute kidney failure, unspecified Meche An MD 04/04/2019 N17.9 Acute kidney failure, unspecified CAMILO Cabezas 04/04/2019 N18.4 Chronic kidney disease, stage 4 (severe) Meche An MD 04/04/2019 K72.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, unspecified without coma CAMILO Cabezas 04/04/2019 E87.70 Fluid overload, unspecified Meche An MD 04/04/2019 K75.81 Nonalcoholic steatohepatitis ([place]) CAMILO Cabezas 04/04/2019 D63.1 Anemia in chronic kidney disease Meche An MD 04/03/2019 D63.1 Anemia in chronic kidney disease CAMILO Cabezas 04/03/2019 N17.9 Acute kidney failure, unspecified CAMILO Cabezas 04/03/2019 N17.9 Acute kidney failure, unspecified Marlon Beard MD 04/03/2019 E11.22 Type 2 diabetes mellitus with diabetic CAMILO Cabezas chronic kidney disease 04/03/2019 N18.9 Chronic kidney disease, unspecified CAMILO Cabezas 04/03/2019 D63.1 Anemia in chronic kidney disease Marlon Beard MD 04/02/2019 D63.1 Anemia in chronic kidney disease Araceli Gaeg NP 04/02/2019 N17.9 Acute kidney failure, unspecified Araceli Gage NP 04/02/2019 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 chronic kidney disease with Araceli Shortanitra, RN OCCUPATIONAL stage 1 through stage 4 chronic kidney disease, or unspecified chronic kidney disease 04/02/2019 N18.9 Chronic kidney disease, unspecified Araceli Shortle, RN OCCUPATIONAL 03/27/2019 N18.4 Chronic kidney disease, stage 4 (severe) Marlon Beard MD 03/27/2019 K74.60 Unspecified cirrhosis of liver Marlon Beard MD 03/27/2019 E11.22 Type 2 diabetes mellitus with diabetic Marlon Beard MD chronic kidney disease 03/27/2019 E87.70 Fluid overload, unspecified Marlon Beard MD 03/27/2019 R06.02 Shortness of breath Marlon Beard MD 03/27/2019 Z68.43 Body mass index (BMI) 50.0-59.9, adult Marlon Beard MD 02/21/2019 R78.81 Bacteremia Anmol Bowen M.D. 02/21/2019 A40.8 Other streptococcal sepsis Jessica Valdez, ELOISA 02/21/2019 I89.0 Lymphedema, not elsewhere classified Anmol Bowen M.D. 02/21/2019 K72.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, unspecified without coma Jessica Valdez, ELOISA 02/21/2019 R18.8 Other ascites Jessica Valdez, ELOISA 02/21/2019 D63.1 Anemia in chronic kidney disease Jessica Valdez NP 02/21/2019 N18.9 Chronic kidney disease, unspecified Jessica Valdez, ELOISA 02/21/2019 E11.22 Type 2 diabetes mellitus with [...] Bowen M.D. 02/20/2019 D64.9 Anemia, unspecified Missy Olivera, 02/20/2019 I86.4 Gastric varices Missy Olivera MD [...] 02/18/2019 A49.1 Streptococcal infection, unspecified site Janelle Senner, DO 02/18/2019 R65.20 Severe sepsis without septic shock Janelle Senner, DO 02/18/2019 D64.9 Anemia, unspecified Janelle Senner, DO 02/18/2019 N17.9 Acute kidney failure, unspecified Janelle Senner, DO 02/18/2019 D69.6 Thrombocytopenia, unspecified Janelle Senner, DO 02/18/2019 E11.9 Type 2 diabetes mellitus without Janelle Senner, DO complications 02/18/2019 G89.4 Chronic pain syndrome Janelle Senner, DO 02/18/2019 R53.1 Weakness Janelle Senner, DO 02/17/2019 R78.81 Bacteremia Anmol Bowen M.D. 02/17/2019 I89.0 Lymphedema, not elsewhere classified Anmol Bowen M.D. 02/17/2019 R78.81 Bacteremia Janelle Devi, DO 02/17/2019 E11.22 Type 2 diabetes mellitus with diabetic Anmol Bowen M.D. chronic kidney disease 02/17/2019 N18.9 Chronic kidney disease, unspecified Anmol Bowen M.D. 02/17/2019 R65.20 Severe sepsis without septic shock Janelle Senner, DO 02/17/2019 N17.9 Acute kidney failure, unspecified Janelle Senner, DO 02/17/2019 D64.9 Anemia, unspecified Janelle Senner, DO 02/17/2019 D69.6 Thrombocytopenia, unspecified Janelle Senner, DO 02/17/2019 R53.1 Weakness Janelle Senner, DO 02/17/2019 G89.4 Chronic pain syndrome Janelle Senner, DO 02/16/2019 R50.9 Fever, unspecified Emily Cleopatra, RN OCCUPATIONAL 02/16/2019 R53.1 Weakness Emily Cleopatra, RN OCCUPATIONAL 02/16/2019 N17.9 Acute kidney failure, unspecified Emily Martin, RN OCCUPATIONAL 02/16/2019 D64.9 Anemia, unspecified Emily Martin, RN OCCUPATIONAL 01/03/2019 R47.01 Aphasia Rizwan Flores MD 01/03/2019 Q21.1 Atrial septal defect Rizwan Flores MD 01/03/2019 G45.9 Transient cerebral ischemic attack, Poppy Heather, RN OCCUPATIONAL unspecified 01/03/2019 E78.5 Hyperlipidemia, unspecified Rizwan Flores MD 01/03/2019 E66.9 Obesity, unspecified Rizwan Flores MD 01/03/2019 N17.9 Acute kidney failure, unspecified Poppy Heather, RN OCCUPATIONAL 01/03/2019 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 01/02/2019 G45.9 Transient cerebral ischemic attack, Poppy Heather, RN OCCUPATIONAL unspecified 01/02/2019 N18.3 Chronic kidney disease, stage 3 Poppy Heather, RN OCCUPATIONAL (moderate) 01/02/2019 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 chronic kidney disease with Poppy Heather, RN OCCUPATIONAL stage 1 through stage 4 chronic kidney disease, or unspecified chronic kidney disease 01/01/2019 R47.01 Aphasia Rizwan Flores MD 01/01/2019 G45.9 Transient cerebral ischemic attack, Jessica Valdez NP unspecified 01/01/2019 R41.82 Altered mental status, unspecified Rizwan Flores MD 01/01/2019 D69.6 Thrombocytopenia, unspecified Jessica Valdez NP 01/01/2019 D64.9 Anemia, unspecified Jessica Valdez NP 01/01/2019 R79.89 Other specified abnormal findings of Jessica Valdez NP blood chemistry Plan of Treatment No Information Available Functional Status Description No Information Available Mental Status Description No Information Available Referrals Description No Information Available
--- OUTSIDE RECORDS SUMMARY | 2019-05-13 04:35 | XMS REPORT ---
:1945 Author Organization [facility] Care Team Providers Name Role Phone Unavailable Unavailable Unavailable Problems Condition Condition Condition Status Onset Resolution Last Treating Comments Name Details Category Date Date Treatment Clinician Date Chronic Chronic Diagnosis Active 0 Caitlin kidney kidney 310 Carrier RN disease, disease, stage 4 stage 4 (severe) (severe) Pain frequent Pain Mgmt Active 2020-0 Dione pain 05-07 Agenda 08:50: [id number] Cardio edema Cardiovasc Active 2020-0 Dione ular 05-07 Agenda 08:50: [id number] 00 Respiratory dyspnea Respirator Active 2020-0 Dione present y 05-07 Agenda 08:50: [id number] 00 Endo/Satya glucose Endo/Satya Active 2020-0 [facility] testing 05-07 Agenda dependence 08:50: [id number] 00 Endo/Satya diabetic Endo/Satya Active 2020-0 Dione foot care 05-07 Agenda 08:50: [id number] 00 Nutrition nutritional Nutrition Active 2020-0 Dione restriction 05-07 Agenda s 08:50: [id number] 00 Elimination diarrhea Eliminatio Active 2020-0 [facility] n 05-07 Agenda 08:50: [id number] 00 Activity ADL Activity Active 2020-0 Dione assistance 05-07 Agenda required 08:50: [id number] 00 Activity self-care Activity Active 2020-0 Dione deficit 05-07 Agenda 08:50: [id number] 00 Safety structural Safety Active 2020-0 Dione barriers 05-07 Agenda present 08:50: [id number] 00 Safety fall risk Safety Active 2020-0 Dione factor 05-07 Agenda present 08:50: [id number] 00 Safety risk for Safety Active 2020-0 Dione hospitaliza 05-07 Agenda tion 08:50: [id number] 00 Safety can be left Safety Active 2020-0 Dione alone for 05-07 Agenda only short 08:50: [id number] periods 00 Medication oral med Meds Active 2019-0 Dione assistance 05-07 Agenda required 08:50: [id number] 00 Medication injectable Meds Active 2019-0 Dione med 05-07 Agenda assistance 08:50: [id number] required 00 Medication knowledge/s Meds Active 0 Dione kill 05-07 Agenda deficit: pt 08:50: [id number] 00 Musculoskel transfer Musculoske Active 2019-0 Dione etal assistance letal 05-07 Agenda required 08:50: [id number] 00 Bed transfer PT/OT: Bed Active 2019-0 Peetr Mobility/Tr deficit: Mobility/T 3-12 autumn Martinez sit/stand ransfer 13:00: PT 00 [id number] Bed transfer PT/OT: Bed Active 2020-0 Peter Mobility/Tr deficit: Mobility/T 3-12 autumn Martinez standing ransfer 13:00: PT pivot 00 [id number] Bed transfer PT/OT: Bed Active 2020-0 Peter Mobility/Tr deficit: Mobility/T 3-12 autumn Martinez toilet/comm ransfer 13:00: PT ode 00 [id number] Bed transfer PT/OT: Bed Active 2020-0 Peter Mobility/Tr deficit: Mobility/T 3-12 autumn Martinez shower/tub ransfer 13:00: PT 00 [id number] Bed knowledge/s PT/OT: Bed Active 2020-0 Peter Mobility/Tr kill Mobility/T 3-12 autumn Martinez deficit: pt ransfer 13:00: PT 00 [id number] Gait/Locomo knowledge/s PT/OT: Active 2020-0 Peter tion kill Gait/Locom 3-12 Juan, problems deficit: pt otion 13:00: PT 00 [id number] Gait/Locomo gait PT/OT: Active 2020-0 Peter tion deficit Gait/Locom 3-12 Juan, problems otion 13:00: PT 00 [id number] Allergies, Adverse Reactions, Alerts Allergy Allergy Status Severity Reaction(s) Onset Inactive Treating Comments Name Type Date Date Clinician Unknown None Active Unknown None Unknown No Known Allergies For This Patient Medications Ordered Filled Start Stop Current Ordering Indication Dosage Frequency Signature Comments Components Medication Medication Date Date Medication? Clinician (SIG) Name Name allopurinol allopurinol Yes Midura Unknown Unknown 300 mg 300 mg 3-12 ,Rafat tablet tablet nadolol 20 nadolol 20 Yes Midura Unknown Unknown mg tablet mg tablet 3-12 Rafat TORRES ferrous ferrous Yes Midura Unknown Unknown gluconate gluconate -12 Rafat TORRES 324 mg (38 324 mg (38 mg iron) mg iron) tablet tablet lactulose lactulose Yes Midura Unknown Unknown 10 gram/15 10 gram/15 3-12 Rafat TORRES mL (15 mL) mL (15 mL) oral oral solution solution Lantus Lantus Yes Midura Unknown Unknown Solostar Solostar - Rafat TORRES U-100 U-100 Insulin 100 Insulin 100 unit/mL (3 unit/mL (3 mL) mL) subcutaneou subcutaneou s pen s pen Metamucil Metamucil Yes Midura Unknown Unknown Fiber Thin Fiber Thin -12 Rafat TORRES 2 gram oral 2 gram oral wafer wafer nystatin nystatin Yes Midura Unknown Unknown (bulk) 50 (bulk) 50 3-12 Rafat TORRES million million unit powder unit powder Meraux 3-6-9 Meraux 3-6-9 Yes Midura Unknown Unknown 1,200 mg 1,200 mg 3-12 ,Rafat capsule capsule pantoprazol pantoprazol Yes Midura Unknown Unknown e 40 mg e 40 mg 3-12 ,Rafat tablet,christian tablet,christian yed release yed release spironolact spironolact Yes Midura Unknown Unknown one 50 mg one 50 mg 3-12 ,Rafat tablet tablet torsemide torsemide Yes Midura Unknown Unknown 20 mg 20 mg 3-12 ,Rafat tablet tablet Vital Signs Vital Name Observation Time Observation Value Comments SYSTOLIC mm[Hg] 2019-05-12 18:10:54 140 mm[Hg] mm[Hg] Method: Sit SYSTOLIC mm[Hg] 2019-05-08 18:10:50 152 mm[Hg] mm[Hg] Method: Stand DIASTOLIC mm[Hg] 2019-05-12 18:10:54 80 mm[Hg] mm[Hg] Method: Sit DIASTOLIC mm[Hg] 2019-05-08 18:10:50 82 mm[Hg] mm[Hg] Method: Stand PULSE 2019-05-12 18:10:54 63 /min /min RESP RATE 2019-05-12 18:10:54 18 /min /min TEMP 2019-05-12 18:10:54 97.5 [degF] Procedures This patient has no known procedures. Results This patient has no known results.
--- OUTSIDE RECORDS SUMMARY | 2019-05-13 04:35 | XMS REPORT ---
:1945 Author Organization [facility] Care Team Providers Name Role Phone Unavailable Unavailable Unavailable Problems Condition Condition Condition Status Onset Resolution Last Treating Comments Name Details Category Date Date Treatment Clinician Date Chronic Chronic Diagnosis Active Jessica kidney kidney 3-10 Wendela disease, disease, [id number] stage 4 stage 4 (severe) (severe) Allergies, Adverse Reactions, Alerts Allergy Allergy Status Severity Reaction(s) Onset Inactive Treating Comments Name Type Date Date Clinician Unknown None Active Unknown None Unknown No Known Allergies For This Patient Medications Ordered Filled Start Stop Current Ordering Indication Dosage Frequency Signature Comments Components Medication Medication Date Date Medication? Clinician (SIG) Name Name No Known No Known No None None None Medications Medications For This For This Patient Patient Procedures This patient has no known procedures. Results This patient has no known results.
--- OUTSIDE RECORDS SUMMARY | 2019-05-13 04:35 | XMS REPORT ---
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
--- OUTSIDE RECORDS SUMMARY | 2019-05-13 04:35 | XMS REPORT | Continuity of Care Document ---
:1945 External Reference #:[id number] Author Name Lavern Dang MD (transmitted by agent of provider Danae Alford) Address [address] [place] [address] Care Team Providers Name Role Phone Rafat Senior MD - Family Medicine Care Team Information County Director Welfare [phone] Problems Description No Information Available Social History [...] apply twice a day Unknown until resolved. [id number]/GM Cream Allopurinol 1 by mouth every Unknown [...] mouth twice Unknown 20mg daily Capsules DR Shetlon Solfemiar inject 20 units Unknown once daily 100Unit/ML Solution Pen-Inject Lisinopril 1 by mouth every Unknown 20mg day Tablets Aspirin 81 1 by mouth every Unknown 81mg day Tablets DR JERNIGAN Unknown [place]-3 Fish Oil take 1 tab by mouth [...] Result H/L Range Note Basic Metabolic 04/29/2019 [facility] Sodium 138 mmol/L Normal 135-145 1 Panel [address] [place] [address] [phone] Potassium 3.6 mmol/L Normal 3.5-5.0 Chloride 99 mmol/L Low 101-111 Co2 Carbon Dioxide 32 mmol/L Normal 22-32 Anion Gap 7 mmol/L Normal 2-11 Glucose 193 mg/dL High 70-100 Blood Urea Nitrogen 33 mg/dL High 6-24 Creatinine 1.86 mg/dL High 0.51-0.95 BUN/Creatinine Ratio 17.7 Normal 8-20 Calcium 8.3 mg/dL Low 8.6-10.3 Egfr Non- 26.6 >60 Egfr 32.1 >60 2 Comp Metabolic 04/23/2019 [facility] Sodium 139 mmol/L Normal 135-145 Panel [address] [place] [address] [phone] Potassium 3.7 mmol/L Normal 3.5-5.0 Chloride 99 [...] Egfr 28.7 >60 3 Laboratory test 04/23/2019 [facility] Ammonia 86 mcmol/L High 16-[address] [place] [address] [phone] Laboratory test 04/22/2019 [facility] Pathologist (SEE NOTE) 4, [address] [place] [address] [phone] Manual 04/22/2019 [facility] Neutrophil % 58.0 % Differential [address] [place] [address] [phone] Lymphocytes % 25.0 % Monocytes % 10.0 % Eosinophils % 6.0 % Variant Lymph % 1.0 % Normal 0-6 Hypochromasia 1+ Anisocytosis 2+ Target Cells 1+ Stomatocytes 1+ CBC Auto 04/22/2019 [facility] White Blood 5.7 10^3/uL Normal 3.5-10.[address] [place] [address] [phone] Red Blood Count 2.47 10^6/uL Low 3.70-4.87 [...] Blood Cells % 0.0 Laboratory test 04/22/2019 [facility] Prealbumin 5 mg/dL Low 18-38 6 finding [address] [place] [address] [phone] Basic Metabolic 04/22/2019 [facility] Sodium 139 mmol/L Normal 135-145 Panel [address] [place] [address] [phone] Potassium 4.2 mmol/L Normal 3.5-5.0 Chloride 98 mmol/L Low 101-111 Co2 Carbon Dioxide 33 mmol/L High 22-32 Anion Gap 8 mmol/L Normal 2-11 Glucose 176 mg/dL High 70-100 Blood Urea Nitrogen 42 mg/dL High 6-24 Creatinine 2.08 mg/dL High 0.51-0.95 BUN/Creatinine Ratio 20.2 High 8-20 Calcium 8.9 mg/dL Normal 8.6-10.3 Egfr Non- 23.3 >60 Egfr 28.2 >60 7 Laboratory test 04/22/2019 [facility] Ammonia TNP mcmol/L 16- 53 8, 9 finding [address] [place] [address] [phone] Comp Metabolic 04/22/2019 [facility] Sodium 137 mmol/L Normal 135-145 Panel [address] [place] [address] [phone] Potassium 3.9 mmol/L Normal 3.5-5.0 Chloride 97 [...] 28.9 >60 10 Type & Screen 04/02/2019 [facility] Patient Blood Type A Positive [address] [place], [place] [id number] [phone] Antibody Screen NEGATIVE Laboratory test 04/02/2019 [facility] Packed Cells SEE RESULTS [address] [place] <[place] [address] NOTE> [phone] Urine Culture And 03/27/2019 [facility] Urine Culture SEE RESULT [address] [place], [place] [address] [phone] Laboratory test 03/27/2019 [facility] Pathologist (SEE NOTE) [address] [place], [place] [address] [phone] Cell Morphology 03/27/2019 [facility] Macrocytosis 3+ [address] [place] [address] [phone] Anisocytosis 2+ Target Cells 1+ Laboratory test 03/27/2019 [facility] Ferritin 117.2 ng/mL Normal 11-[address] [place], [place] [address] [phone] B-Type Natriuretic Peptide BNP 839 pg/mL High <=100 Iron & Iron Binding 03/27/2019 [facility] Iron 105 g/dL Normal 50-[address] [place], [place] [address] [phone] Unsaturated Iron Binding < 209 g/dL Total Iron Binding Capacity 224 g/dL Low 250-450 Transferrin 160 mg/dL Low 203-362 % Iron Saturation 47 % Normal 15-55 Laboratory test 03/27/2019 [facility] Hemoglobin A1c 5.1 % Normal 4.0-5.[address] (Glyco HGB) [place], [place] [address] [phone] Albumin 2.0 g/dL Low 3.2-5.2 Urinalysis Profile 03/27/2019 [facility] Urine Color Yellow [address] [place], [place] [address] [phone] Urine Appearance Clear Urine Specific [place] 1.012 Normal 1.010-1.030 Urine pH 5.0 Normal [...] Cell Present Abnormal Absent Basic Metabolic 03/27/2019 [facility] Sodium 138 mmol/L Normal 135-[address] [place] [address] [phone] Co2 Carbon Dioxide 17 mmol/L Low 22-32 Glucose 110 mg/dL High 70-100 Blood Urea Nitrogen 52 mg/dL High 6-24 Creatinine 5.41 mg/dL High 0.51-0.95 BUN/Creatinine Ratio 9.6 Normal 8-20 Calcium 8.3 mg/dL Low 8.6-10.3 Egfr Non- 7.7 >60 Egfr 9.4 >60 16 Potassium 5.5 mmol/L High 3.5-5.0 Chloride 113 mmol/L High 101-111 Anion Gap 8 mmol/L Normal 2-11 CBC Auto 03/27/2019 [facility] White Blood 6.7 10^3/uL Normal 3.5-10.[address] [place] [address] [phone] Red Blood Count 2.17 10^6/uL Low 3.70-4.87 [...] Blood Cells % 0.2 Neph Routine 03/27/2019 [facility] Total Protein Random 43 mg/ dL [address] [place] [address] [phone] Creatinine Random Urine 117.28 mg/dL Laboratory 02/16/2019 [facility] Lactic Acid 5.3 Critical 0.5- 2.0 18 test finding [address] mmol/[place] [address] [phone] Influenza A & 02/16/2019 [facility] Flu AB (SEE 19, B Request [address] Disclaimer NOTE) 20 [place] [address] [phone] Influenza A Molecular NEGATIVE Negative Influenza B Molecular NEGATIVE Negative 21 1 [id number] 2 Because ethnic data is not always [...] 5 Kidney failure <15 (or dialysis) 4 [id number] 5 Macrocytic anemia. Mild thrombocytopenia. No evidence of hemolytic process. Reviewed by Mónica Snow MD 6 [id number] 7 Because ethnic data is not always [...] 5 Kidney failure <15 (or dialysis) 8 [id number] 9 Unable to report test result due [...] ISSUES PER PT 12 SEE RESULTS BELOW [id number] AP PC TRANSFUSED 04/02/19 2324 [id number] AP PC TRANSFUSED 04/03/19 0936 [id number] AP PC TRANSFUSED 04/04/19 0628 [id number] AP PC TRANSFUSED 04/04/19 0935 13 SEE RESULT BELOW Name: BONNIE AGUILERA : [address]: Marlon Beard MD Acct: [id number] Unit: [id number] AGE: 73 Location: LAB Re03/27/19 SEX: F Status: REG REF SPEC: [id number] [place]: 03/27/19-15[address] [facility] [address]: Marlon Beard MD REQ: [id number] RECD: 03/27/19-127 STATUS: COMP _ SOURCE: URINE SPDESC: ORDERED: Urine Culture Procedure Result Reported Site Urine Culture Final 03/28/19- 1406 ML No Growth (<1,000 CFU/mL) * ML - Main Lab . END OF REPORT DEPARTMENT OF PATHOLOGY, [address] [place] [address] Nic Weber M.D. Director [facility] # [id number] 14 Moderate macrocytic anemia with thrombocytopenia noted. Clinical correlation suggested. Additional studies is warranted. Reviewed by Dr. Weber 15 Therapeutic target for the treatment of diabetes mellitus patients is <7% HBA1C, and in selective patients <6.0%. Please refer to [place] [employer] diabetic care guidelines for further [...] 02/19/19. 18 Critical Result LACT:5.3 Called to [id number] at: 22:01:07 by:[id number] Read back by:[id number] JUSTINO Severe Sepsis and Septic Shock Management Bundle Measure requires all lactic acids initially measuring >2.0 mmol/L be repeated. Critical Result LACT:5.3 Called to [id number] at: 22:01:07 by:[id number] Read back by:[id number] [facility] Severe Sepsis and Septic Shock Management Bundle Measure requires all lactic acids initially measuring >2.0 mmol/L be repeated. 19 NASAL 20 Suboptimal collection technique may reduce sensitivity of test. Refer to the [facility] Test Catalog for collection information: [email or web address] As with all diagnostic procedures, the laboratory results obtained should be used in conjunction with other clinical information available to the physician, including confirmation by another method, as applicable. 21 Desktop Technician: [id number] Procedures Date Code Description Status 02/18/2019 28977 Moderate Sedation Services; Same Phys Intl 15 Mins; PT >= Completed 5 Years 02/18/2019 86481 Color Flow Doppler/Interp & Reprt Completed 02/18/2019 14535 Pulse Wave/Continuous-Interp.RPT Completed 02/18/2019 57863 Echocardiography, Transesophageal, Real Time W/Image 2D Completed W/W/O M-M 01/02/2019 95266 ECHO Transthorasic Realtime 2D W Doppler & Color Flow Hosp Completed Medical Devices Description No Information Available Encounters Type Date Location Provider Dx Diagnosis Office Visit 04/29/2019 [place] Cel[facility] Dang MD R54 Age-related physical 9:00a debility N18.4 Chronic kidney disease, stage 4 (severe) D63.1 Anemia in chronic kidney disease K74.60 Unspecified cirrhosis of liver K29.61 Other gastritis with bleeding R18.8 Other ascites E11.22 Type 2 diabetes mellitus w diabetic chronic kidney disease Z68.43 Body mass index (BMI) 50.0-59.9, adult Office Visit 04/21/2019 9:30a [place] Celina Dang, R54 Age- related physical MD debility N18.4 Chronic kidney disease, stage 4 (severe) D63.1 Anemia in chronic kidney disease K74.60 Unspecified cirrhosis of liver K29.61 Other gastritis with bleeding R18.8 Other ascites K72.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, unspecified without coma E11.22 Type 2 diabetes mellitus w diabetic chronic kidney disease Z68.43 Body mass index (BMI) 50.0-59.9, adult Office Visit 04/18/2019 [facility] K72.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, 3:26p theron Escalante MD unspecified Hospitalists without coma N17.9 Acute kidney failure, unspecified I50.9 Heart failure, unspecified D64.9 Anemia, unspecified E11.9 Type 2 diabetes mellitus without complications G89.29 Other chronic pain Office Visit 04/18/2019 10:16a [facility] Meche An, N17.9 Acute kidney MD failure, unspecified N18.4 Chronic kidney disease, stage 4 (severe) Office Visit 04/17/2019 [facility] K72.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, 3:26p Assoc,theron Motta MD unspecified Hospitalists without coma N17.9 Acute kidney failure, unspecified D64.9 Anemia, unspecified G89.4 Chronic pain syndrome Office Visit 04/16/2019 3:25p [facility] K72.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, Assoc,theron Husain MD unspecified [...] kidney disease, unspecified Office Visit 04/15/2019 3:25p [facility] Katey Lopez, K72.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, Assoctheron MD unspecified Hospitalists without coma N17.9 Acute kidney failure, unspecified D64.9 Anemia, unspecified G89.4 Chronic pain syndrome Office Visit 04/15/2019 10:15a [facility] Meche An, N17.9 Acute kidney MD failure, unspecified Office Visit 04/14/2019 3:25p [facility] K72.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, Asstheron méndez MD unspecified Hospitalists without coma N17.9 Acute kidney failure, unspecified D64.9 Anemia, unspecified K27.9 Peptic ulc, site unsp, unsp as ac or chr, w/o hemor or perf Office Visit 04/14/2019 [facility] Meche An, N17.9 Acute kidney 10:15a MD failure, unspecified Office Visit 04/13/2019 [facility] Marlon Gutierrez N17.9 Acute kidney 1:52p MD Kisha failure, unspecified Office Visit 04/13/2019 [facility] Cindy Husain, K72.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, 3:24p theron Escalante MD unspecified Hospitalists without coma N17.9 Acute kidney failure, unspecified D64.9 Anemia, unspecified K27.9 Peptic ulc, site unsp, unsp as ac or chr, w/o hemor or perf G89.4 Chronic pain syndrome Z79.4 nursing home (current) use of insulin E11.9 Type 2 diabetes mellitus without complications Office Visit 04/12/2019 [facility] Marlon Gutierrez N17.9 Acute kidney 1:52p MD Kisha failure, unspecified Office Visit 04/11/2019 [facility] Marlon Gutierrez N17.9 Acute kidney 1:52p MD Kisha failure, unspecified Office Visit 04/11/2019 [facility] K72.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, 3:23p theron Escalante MD unspecified Hospitalists without coma N17.9 Acute kidney failure, unspecified D64.9 Anemia, unspecified K27.9 Peptic ulc, site unsp, unsp as ac or chr, w/o hemor or perf G89.4 Chronic pain syndrome [facility] K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, Assoc,theron Finnegan D.O. 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 I50.30 Unspecified diastolic (congestive) heart failure E11.9 Type 2 diabetes mellitus without complications Office Visit 04/10/2019 [facility] Marlon Gutierrez N17.9 Acute kidney 9:09a MD Kisha failure, unspecified Office Visit 04/09/2019 [facility] Katey Lopez MD K72.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, 3:23p Assocpc unspecified Hospitalists without coma D64.9 Anemia, unspecified N17.9 Acute kidney failure, unspecified G89.4 Chronic pain syndrome K27.9 Peptic ulc, site unsp, unsp as ac or chr, w/o hemor or perf 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 I50.30 Unspecified diastolic (congestive) heart failure Z79.4 nursing home (current) use of insulin E11.22 Type 2 diabetes mellitus w diabetic chronic kidney disease N18.9 Chronic kidney disease, unspecified Office Visit 04/08/2019 3:22p [facility] Katey Lopez K72.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, Assoc,pc unspecified [...] kidney disease, unspecified Office Visit 04/08/2019 10:39a [facility] Marlon Gutierrez N17.9 Acute kidney MD Kisha failure, unspecified Office Visit 04/07/2019 9:20a [facility] Marlon Gutierrez N17.9 Acute kidney MD Kisha failure, unspecified Office Visit 04/07/2019 1:48p [facility] Diana Vega MD K72.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, unspecified without coma E72.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, unspecified K75.81 Nonalcoholic steatohepatitis ([place]) I10 Essential (primary) hypertension Office Visit 04/06/2019 1:47p [facility] Rosaline K72.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 , Stocking, SUPERVISOR PHOSPHORIC ACID unspecified without coma E72.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, unspecified K75.81 Nonalcoholic steatohepatitis ([place]) I10 Essential (primary) hypertension Office Visit 04/05/2019 1:47p [facility] Rosaline K72.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 , Stocking, SUPERVISOR PHOSPHORIC ACID unspecified without coma D63.8 Anemia in other chronic diseases classified elsewhere E72.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, unspecified E87.70 Fluid overload, unspecified Office Visit 04/05/2019 10:13a [facility] Meche An, N17.9 Acute kidney MD failure, unspecified N18.4 Chronic kidney disease, stage 4 (severe) Office Visit 04/04/2019 1:47p [facility] Lobo D64.9 Anemia, Assoc,CAMILO Vaughn unspecified Hospitalists N17.9 Acute kidney failure, unspecified K72.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, unspecified without coma K75.81 Nonalcoholic steatohepatitis ([place]) Office Visit 04/04/2019 2:53p [facility] Meche An, N17.9 Acute kidney MD failure, unspecified N18.4 Chronic kidney disease, stage 4 (severe) E87.70 Fluid overload, unspecified D63.1 Anemia in chronic kidney disease Office Visit 04/03/2019 1:46p [facility] Lobo D63.1 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, CAMILO Ceballos chronic kidney Hospitalists disease N17.9 Acute kidney failure, unspecified E11.22 Type 2 diabetes mellitus w diabetic chronic kidney disease N18.9 Chronic kidney disease, unspecified Office Visit 04/03/2019 2:35p [facility] Marlon Gutierrez N17.9 Acute kidney MD Kisha failure, unspecified D63.1 Anemia in chronic kidney disease Office Visit 04/02/2019 3:11p [facility] D63.1 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, Merari, SENIOR HUMAN RESOURCES REPRESENTATIVE chronic kidney Hospitalists disease N17.9 Acute kidney failure, unspecified 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 chronic kidney 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/unsp [facility] kdny N18.9 Chronic kidney disease, unspecified Office Visit 03/27/2019 2:00p [facility] Marlon Gutierrez N18.4 Chronic kidney MD Kisha disease, stage 4 (severe) K74.60 Unspecified cirrhosis of liver E11.22 Type 2 diabetes mellitus w diabetic chronic kidney disease E87.70 Fluid overload, unspecified R06.02 Shortness of breath Z68.43 Body mass index (BMI) 50.0-59.9, adult Office Visit 02/21/2019 10:17a [facility] Jessica Luther R78.81 Bacteremia Infectious Diseases Mery Bowen I89.0 Lymphedema, not elsewhere classified Office Visit 02/21/2019 [facility] Jessica Courtney, A40.8 Other 1:14p Assoc,pc SENIOR HUMAN RESOURCES REPRESENTATIVE streptococcal Hospitalists sepsis K72.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, unspecified without coma R18.8 Other ascites D63.1 Anemia in chronic kidney disease N18.9 Chronic kidney disease, unspecified 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 E78.5 Hyperlipidemia, unspecified Office Visit 02/20/2019 [facility] A49.1 Streptococcal 1:13p Assoc,theron Olivera MD infection, Hospitalists unspecified site D64.9 Anemia, unspecified I86.4 Gastric varices D69.6 Thrombocytopenia, unspecified E11.9 Type 2 diabetes mellitus without complications G89.4 Chronic pain syndrome Office Visit 02/20/2019 10:16a [facility] Jessica Luther R78.81 Bacteremia Infectious Diseases Mery Bowen I89.0 Lymphedema, not elsewhere classified Office Visit 02/19/2019 [facility] A49.1 Streptococcal 1:13p Assoc,theron Olivera MD infection, Hospitalists unspecified site N17.9 Acute kidney failure, unspecified D64.9 Anemia, unspecified I86.4 Gastric varices D69.6 Thrombocytopenia, unspecified E11.9 Type 2 diabetes mellitus without complications G89.4 Chronic pain syndrome Office Visit 02/18/2019 [facility] Janelle A49.1 Streptococcal 1:12p Assoc,theron Devi DO infection, Hospitalists unspecified site R65.20 Severe sepsis without septic shock D64.9 Anemia, unspecified N17.9 Acute kidney failure, unspecified D69.6 Thrombocytopenia, unspecified E11.9 Type 2 diabetes mellitus without complications G89.4 Chronic pain syndrome R53.1 Weakness Office Visit 02/17/2019 10:14a [facility] Jessica Luther R78.81 Bacteremia Infectious Diseases Mery Bowen I89.0 Lymphedema, not elsewhere classified E11.22 Type 2 diabetes mellitus w diabetic chronic kidney disease N18.9 Chronic kidney disease, unspecified Office Visit 02/17/2019 1:12p [facility] Janelle Devi, R78.81 Bacteremia Assoc,pc Hospitalists DO R65.20 Severe sepsis without septic shock N17.9 Acute kidney failure, unspecified D64.9 Anemia, unspecified D69.6 Thrombocytopenia, unspecified R53.1 Weakness G89.4 Chronic pain syndrome Office Visit 02/16/2019 [facility] Emily R50.9 Fever, 1:11p Assoc,pc Hancock, SENIOR HUMAN RESOURCES REPRESENTATIVE unspecified Hospitalists R53.1 Weakness N17.9 Acute kidney failure, unspecified D64.9 Anemia, unspecified Office Visit 01/03/2019 7:00a [facility] Rizwan Flores, R47.01 Aphasia Q21.1 Atrial septal defect E78.5 Hyperlipidemia, unspecified E66.9 Obesity, unspecified Office Visit 01/03/2019 11:01a [facility] Poppy Heather, G45.9 Transient Assoc,pc SENIOR HUMAN RESOURCES REPRESENTATIVE cerebral ischemic Hospitalists attack, unspecified N17.9 Acute kidney failure, unspecified 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 N18.3 Chronic kidney disease, stage 3 (moderate) Office Visit 01/01/2019 7:00a [facility] Rizwan Flores, R47.01 Aphasia R41.82 Altered mental status, unspecified Office Visit 01/01/2019 [facility] Jessica FelicianoJayjay, G45.9 Transient 11:01a Assoc,pc SENIOR HUMAN RESOURCES REPRESENTATIVE cerebral ischemic Hospitalists attack, unspecified D69.6 Thrombocytopenia, [...] MD 04/18/2019 I50.9 Heart failure, unspecified Isabel Motta MD 04/18/2019 D64.9 Anemia, unspecified Isabel Motta [...] pain syndrome Cindy Husain MD 04/13/2019 Z79.4 buttermaker helper (current) use of insulin Cindy Husain MD 04/13/2019 E11.9 Type 2 diabetes mellitus 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.4 buttermaker helper (current) use of insulin Katey Lopez MD [...] failure, unspecified without coma Rosaline Stocking , SUPERVISOR PHOSPHORIC ACID 04/06/2019 E72.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, Rosaline Stocking, SUPERVISOR PHOSPHORIC ACID unspecified 04/06/2019 K75.81 Nonalcoholic steatohepatitis ([place]) Rosaline Stocking, SUPERVISOR PHOSPHORIC ACID 04/06/2019 I10 Essential (primary) hypertension Rosaline Stocking, SUPERVISOR PHOSPHORIC ACID 04/05/2019 N17.9 Acute kidney failure, unspecified Meche An MD 04/05/2019 K72.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, unspecified without coma Rosaline Stocking , SUPERVISOR PHOSPHORIC ACID 04/05/2019 N18.4 Chronic kidney disease, stage 4 (severe) Meche An MD 04/05/2019 D63.8 Anemia in other chronic diseases Rosaline Stocking, SUPERVISOR PHOSPHORIC ACID classified elsewhere 04/05/2019 E72.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, Rosaline Stocking, SUPERVISOR PHOSPHORIC ACID unspecified 04/05/2019 E87.70 Fluid overload, unspecified Rosaline Stocking, SUPERVISOR PHOSPHORIC ACID 04/04/2019 D64.9 Anemia, unspecified CAMILO Cabezas 04/04/2019 [...] D63.1 Anemia in chronic kidney disease Araceli Gage NP 04/02/2019 N17.9 Acute kidney failure, unspecified Araceli Gage NP 04/02/2019 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 chronic kidney disease with Araceli Shortanitra, SENIOR HUMAN RESOURCES REPRESENTATIVE stage 1 through stage 4 chronic kidney disease, or unspecified chronic kidney disease 04/02/2019 N18.9 Chronic kidney disease, unspecified Araceli Shortle, SENIOR HUMAN RESOURCES REPRESENTATIVE 03/27/2019 N18.4 Chronic kidney disease, stage 4 [...] DO 02/16/2019 R50.9 Fever, unspecified Emily Cleopatra, SENIOR HUMAN RESOURCES REPRESENTATIVE 02/16/2019 R53.1 Weakness Emily Cleopatra, SENIOR HUMAN RESOURCES REPRESENTATIVE 02/16/2019 N17.9 Acute kidney failure, unspecified Emily Hancock, SENIOR HUMAN RESOURCES REPRESENTATIVE 02/16/2019 D64.9 Anemia, unspecified Emily Hancock, SENIOR HUMAN RESOURCES REPRESENTATIVE 01/03/2019 R47.01 Aphasia Rizwan Flores MD 01/03/2019 Q21.1 Atrial septal defect Rizwan Flores MD 01/03/2019 G45.9 Transient cerebral ischemic attack, Poppy Heather, SENIOR HUMAN RESOURCES REPRESENTATIVE unspecified 01/03/2019 E78.5 Hyperlipidemia, unspecified Rizwan Flores MD 01/03/2019 E66.9 Obesity, unspecified Rizwan Flores MD 01/03/2019 N17.9 Acute kidney failure, unspecified Poppy Heather, SENIOR HUMAN RESOURCES REPRESENTATIVE 01/03/2019 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 chronic kidney disease with Poppy Heather, SENIOR HUMAN RESOURCES REPRESENTATIVE stage 1 through stage 4 chronic kidney disease, or unspecified chronic kidney disease 01/03/2019 N18.3 Chronic kidney disease, stage 3 Poppy Heather, SENIOR HUMAN RESOURCES REPRESENTATIVE (moderate) 01/02/2019 I63.9 Cerebral infarction, unspecified Femi Aguirre M.D. 01/02/2019 G45.9 Transient cerebral ischemic attack, Poppy Heather, SENIOR HUMAN RESOURCES REPRESENTATIVE unspecified 01/02/2019 N18.3 Chronic kidney disease, stage 3 Poppy Heather, SENIOR HUMAN RESOURCES REPRESENTATIVE (moderate) 01/02/2019 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 chronic kidney disease with Poppy Heather, SENIOR HUMAN RESOURCES REPRESENTATIVE stage 1 through stage 4 chronic kidney [...]
--- OUTSIDE RECORDS SUMMARY | 2019-05-13 04:35 | XMS REPORT | Continuity of Care Document ---
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 [id number] Cream Allopurinol 1 by mouth every Unknown [...] Unknown 81mg day Tablets DR JERNIGAN Unknown [place]-3 Fish Oil take 1 tab by mouth [...] Result H/L Range Note Basic Metabolic 04/29/2019 [facility] Sodium 138 mmol/L Normal 135-145 1 Panel [address] [place] [address] [phone] Potassium 3.6 mmol/L Normal 3.5-5.0 Chloride 99 mmol/L Low 101-111 Co2 Carbon Dioxide 32 mmol/L Normal 22-32 Anion Gap 7 mmol/L Normal 2-11 Glucose 193 mg/dL High 70-100 Blood Urea Nitrogen 33 mg/dL High 6-24 Creatinine 1.86 mg/dL High 0.51-0.95 BUN/Creatinine Ratio 17.7 Normal 8-20 Calcium 8.3 mg/dL Low 8.6-10.3 Egfr Non- 26.6 >60 Egfr 32.1 >60 2 Comp Metabolic 04/23/2019 [facility] Sodium 139 mmol/L Normal 135-145 Panel [address] [place] [address] [phone] Potassium 3.7 mmol/L Normal 3.5-5.0 Chloride 99 [...] Egfr 28.7 >60 3 Laboratory test 04/23/2019 [facility] Ammonia 86 mcmol/L High 16-[address] [place] [address] [phone] Laboratory test 04/22/2019 [facility] Pathologist (SEE NOTE) 4, [address] [place] [address] [phone] Manual 04/22/2019 [facility] Neutrophil % 58.0 % Differential [address] [place] [address] [phone] Lymphocytes % 25.0 % Monocytes % 10.0 % Eosinophils % 6.0 % Variant Lymph % 1.0 % Normal 0-6 Hypochromasia 1+ Anisocytosis 2+ Target Cells 1+ Stomatocytes 1+ CBC Auto 04/22/2019 [facility] White Blood 5.7 10^3/uL Normal 3.5-10.[address] [place] [address] [phone] Red Blood Count 2.47 10^6/uL Low 3.70-4.87 [...] Blood Cells % 0.0 Laboratory test 04/22/2019 [facility] Prealbumin 5 mg/dL Low 18-38 6 finding [address] [place] [address] [phone] Basic Metabolic 04/22/2019 [facility] Sodium 139 mmol/L Normal 135-145 Panel [address] [place] [address] [phone] Potassium 4.2 mmol/L Normal 3.5-5.0 Chloride 98 mmol/L Low 101-111 Co2 Carbon Dioxide 33 mmol/L High 22-32 Anion Gap 8 mmol/L Normal 2-11 Glucose 176 mg/dL High 70-100 Blood Urea Nitrogen 42 mg/dL High 6-24 Creatinine 2.08 mg/dL High 0.51-0.95 BUN/Creatinine Ratio 20.2 High 8-20 Calcium 8.9 mg/dL Normal 8.6-10.3 Egfr Non- 23.3 >60 Egfr 28.2 >60 7 Laboratory test 04/22/2019 [facility] Ammonia TNP mcmol/L 16- 53 8, 9 finding [address] [place] [address] [phone] Comp Metabolic 04/22/2019 [facility] Sodium 137 mmol/L Normal 135-145 Panel [address] [place] [address] [phone] Potassium 3.9 mmol/L Normal 3.5-5.0 Chloride 97 [...] 28.9 >60 10 Type & Screen 04/02/2019 [facility] Patient Blood Type A Positive [address] [place] [address] [phone] Antibody Screen NEGATIVE Laboratory test 04/02/2019 [facility] Packed Cells SEE RESULTS [address]O <[place] [address] NOTE> [phone] Urine Culture And 03/27/2019 [facility] Urine Culture SEE RESULT [address] [place], [place] [id number] [phone] Laboratory test 03/27/2019 [facility] Pathologist (SEE NOTE) [address] [place], [place] [address] [phone] Cell Morphology 03/27/2019 [facility] Macrocytosis 3+ [address] [place] [address] [phone] Anisocytosis 2+ Target Cells 1+ Laboratory test 03/27/2019 [facility] Ferritin 117.2 ng/mL Normal 11-[address] [place], [place] [id number] [phone] B-Type Natriuretic Peptide BNP 839 pg/mL High <=100 Iron & Iron Binding 03/27/2019 [facility] Iron 105 g/dL Normal 50-[address] [place], [place] [address] [phone] Unsaturated Iron Binding < 209 g/dL Total Iron Binding Capacity 224 g/dL Low 250-450 Transferrin 160 mg/dL Low 203-362 % Iron Saturation 47 % Normal 15-55 Laboratory test 03/27/2019 [facility] Hemoglobin A1c 5.1 % Normal 4.0-5.[address] (Glyco HGB) [place], [place] [id number] [phone] Albumin 2.0 g/dL Low 3.2-5.2 Urinalysis Profile 03/27/2019 [facility] Urine Color Yellow [address] [place], [place] [address] [phone] Urine Appearance Clear Urine Specific [place] 1.012 Normal 1.010-1.030 Urine pH 5.0 Normal [...] Cell Present Abnormal Absent Basic Metabolic 03/27/2019 [facility] Sodium 138 mmol/L Normal 135-[address] [place] [address] [phone] Co2 Carbon Dioxide 17 mmol/L Low 22-32 Glucose 110 mg/dL High 70-100 Blood Urea Nitrogen 52 mg/dL High 6-24 Creatinine 5.41 mg/dL High 0.51-0.95 BUN/Creatinine Ratio 9.6 Normal 8-20 Calcium 8.3 mg/dL Low 8.6-10.3 Egfr Non- 7.7 >60 Egfr 9.4 >60 16 Potassium 5.5 mmol/L High 3.5-5.0 Chloride 113 mmol/L High 101-111 Anion Gap 8 mmol/L Normal 2-11 CBC Auto 03/27/2019 [facility] White Blood 6.7 10^3/uL Normal 3.5-10.[address] [place] [address] [phone] Red Blood Count 2.17 10^6/uL Low 3.70-4.87 [...] Blood Cells % 0.2 Neph Routine 03/27/2019 [facility] Total Protein Random 43 mg/ dL [address] [place] [address] [phone] Creatinine Random Urine 117.28 mg/dL Laboratory 02/16/2019 [facility] Lactic Acid 5.3 Critical 0.5- 2.0 18 test finding [address] mmol/L high [place], [place] [address] [phone] Influenza A & 02/16/2019 [facility] Flu AB (SEE 19, B Request [address] Disclaimer NOTE) 20 [place] [address] [phone] Influenza A Molecular NEGATIVE Negative Influenza B Molecular NEGATIVE Negative 21 1 [id number] 2 Because ethnic data is not always [...] 5 Kidney failure <15 (or dialysis) 4 [id number] 5 Macrocytic anemia. Mild thrombocytopenia. No evidence of hemolytic process. Reviewed by Mónica Snow MD 6 [id number] 7 Because ethnic data is not always [...] 5 Kidney failure <15 (or dialysis) 8 [id number] 9 Unable to report test result due [...] ISSUES PER PT 12 SEE RESULTS BELOW [id number] AP PC TRANSFUSED 04/02/19 2324 [id number] AP PC TRANSFUSED 04/03/19 0936 [id number] AP PC TRANSFUSED 04/04/19 0628 [id number] AP PC TRANSFUSED 04/04/19 0935 13 SEE RESULT BELOW Name: BONNIE AGUILERA : [address]: Marlon Beard MD Acct: [id number] Unit: [id number] AGE: 73 Location: LAB Re03/27/19 SEX: F Status: REG REF SPEC: [id number] CORINA: 03/27/19-[address]: Marlon Beard MD REQ: [id number] RECD: 03/27/19-620 STATUS: COMP _ SOURCE: URINE SPDESC: ORDERED: Urine Culture Procedure Result Reported Site Urine Culture Final 03/28/19- 1406 ML No Growth (<1,000 CFU/mL) * ML - Main Lab . END OF REPORT DEPARTMENT OF PATHOLOGY, [address] [place] [address] Nic Weber M.D. Director [facility] # [id number] 14 Moderate macrocytic anemia with thrombocytopenia noted. Clinical correlation suggested. Additional studies is warranted. Reviewed by Dr. Weber 15 Therapeutic target for the treatment of diabetes mellitus patients is <7% HBA1C, and in selective patients <6.0%. Please refer to [place] [employer] diabetic care guidelines for further [...] 02/19/19. 18 Critical Result LACT:5.3 Called to [id number] at: 22:01:07 by:[id number] Read back by:[id number] ERICA Severe Sepsis and Septic Shock Management Bundle Measure requires all lactic acids initially measuring >2.0 mmol/L be repeated. Critical Result LACT:5.3 Called to [id number] at: 22:01:07 by:[id number] Read back by:[id number] [facility] Severe Sepsis and Septic Shock Management Bundle Measure requires all lactic acids initially measuring >2.0 mmol/L be repeated. 19 NASAL 20 Suboptimal collection technique may reduce sensitivity of test. Refer to the [facility] Test Catalog for collection information: [email or web address] As with all diagnostic procedures, the laboratory results obtained should be used in conjunction with other clinical information available to the physician, including confirmation by another method, as applicable. 21 Station Manager: [id number] Procedures Date Code Description Status 02/18/2019 02363 Moderate Sedation Services; Same Phys Intl 15 Mins; PT >= Completed 5 Years 02/18/2019 29845 Color Flow Doppler/Interp & Reprt Completed 02/18/2019 83656 Pulse Wave/Continuous-Interp.RPT Completed 02/18/2019 23502 Echocardiography, Transesophageal, Real Time W/Image 2D Completed W/W/O M-M 01/02/2019 65253 ECHO Transthorasic Realtime 2D W Doppler & Color Flow Hosp Completed Medical Devices Description No Information Available Encounters Type Date Location Provider Dx Diagnosis Office Visit 04/18/2019 [facility] Nephrology Meche An MD N17.9 Acute kidney 10:16a failure, unspecified N18.4 Chronic kidney disease, stage 4 (severe) Office Visit 04/16/2019 3:25p [facility] Cindy K72.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, Assoc,pc MD Rodrigue unspecified Hospitalists without coma D64.9 Anemia, unspecified [...] kidney disease, unspecified Office Visit 04/15/2019 3:25p [facility] Katey Lopez, K72.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, Assoc,pc unspecified Hospitalists without coma N17.9 Acute kidney failure, unspecified D64.9 Anemia, unspecified G89.4 Chronic pain syndrome Office Visit 04/15/2019 10:15a [facility] Nephrology Meche Haynes Negoi, N17.9 Acute kidney MD failure, unspecified Office Visit 04/14/2019 3:25p [facility] K72.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, Asstheron méndez MD unspecified Hospitalists without coma N17.9 Acute kidney failure, unspecified D64.9 Anemia, unspecified K27.9 Peptic ulc, site unsp, unsp as ac or chr, w/o hemor or perf Office Visit 04/14/2019 10:15a [facility] Nephrology Meche G N17.9 Acute kidney MD Juve failure, unspecified Office Visit 04/13/2019 3:24p [facility] K72.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, Assoctheron MD unspecified Hospitalists without coma N17.9 Acute kidney failure, unspecified D64.9 Anemia, unspecified K27.9 Peptic ulc, site unsp, unsp as ac or chr, w/o hemor or perf G89.4 Chronic pain syndrome Z79.4 [facility]CI (current) use of insulin E11.9 Type 2 diabetes mellitus without complications Office Visit 04/13/2019 [facility] Nephrology Marlon A. N17.9 Acute kidney 1:52p MD Kisha failure, unspecified Office Visit 04/12/2019 [facility] Nephrology Marlon A. N17.9 Acute kidney 1:52p MD Kisha failure, unspecified Office Visit 04/11/2019 [facility] Nephrology Marlon A. N17.9 Acute kidney 1:52p MD Kisha failure, unspecified Office Visit 04/11/2019 [facility] K72.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, 3:23p theron Escalante MD unspecified Hospitalists without coma N17.9 Acute kidney failure, unspecified D64.9 Anemia, unspecified K27.9 Peptic ulc, site unsp, unsp as ac or chr, w/o hemor or perf G89.4 Chronic pain syndrome Office Visit 04/10/2019 3:23p [facility] K72.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, Assoc,theron Finnegan, D.O. 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 I50.30 Unspecified diastolic (congestive) heart failure E11.9 Type 2 diabetes mellitus without complications Office Visit 04/10/2019 [facility] Nephrology Marlon Gutierrez N17.9 Acute kidney 9:09a MD Kisha failure, unspecified Office Visit 04/09/2019 [facility] Katey Lopez MD K72.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, 3:23p Assoc,pc unspecified Hospitalists without coma D64.9 Anemia, unspecified N17.9 Acute kidney failure, unspecified G89.4 Chronic pain syndrome K27.9 Peptic ulc, site unsp, unsp as ac or chr, w/o hemor or perf 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 I50.30 Unspecified diastolic (congestive) heart failure Z79.4 [facility] (current) use of insulin E11.22 Type 2 diabetes mellitus w diabetic chronic kidney disease N18.9 Chronic kidney disease, unspecified Office Visit 04/08/2019 3:22p [facility] Katey Lopez, K72.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, Assoctheron [...] kidney disease, unspecified Office Visit 04/08/2019 10:39a [facility] Nephrology Marlon Gutierrez N17.9 Acute kidney MD Kisha failure, unspecified Office Visit 04/07/2019 1:48p [facility] Diana Vega MD K72.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, unspecified without coma E72.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, unspecified K75.81 Nonalcoholic steatohepatitis ([place]) I10 Essential (primary) hypertension Office Visit 04/07/2019 9:20a [facility] Nephrology Marlon Gutierrez N17.9 Acute kidney MD Kisha failure, unspecified Office Visit 04/06/2019 1:47p [facility] Rosaline K72.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 , Stocking, DISK OPERATOR unspecified without coma E72.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, unspecified K75.81 Nonalcoholic steatohepatitis ([place]) I10 Essential (primary) hypertension Office Visit 04/05/2019 10:13a [facility] Nephrology Meche An, N17.9 Acute kidney MD failure, unspecified N18.4 Chronic kidney disease, stage 4 (severe) Office Visit 04/05/2019 1:47p [facility] Rosaline K72.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 , Stocking, DISK OPERATOR unspecified without coma D63.8 Anemia in other chronic diseases classified elsewhere E72.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, unspecified E87.70 Fluid overload, unspecified Office Visit 04/04/2019 1:47p [facility] Lobo D64.9 Anemia, Assoc,CAMILO Vaughn unspecified Hospitalists N17.9 Acute kidney failure, unspecified K72.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, unspecified without coma K75.81 Nonalcoholic steatohepatitis ([place]) Office Visit 04/04/2019 2:53p [facility] Nephrology Meche An, N17.9 Acute kidney MD failure, unspecified N18.4 Chronic kidney disease, stage 4 (severe) E87.70 Fluid overload, unspecified D63.1 Anemia in chronic kidney disease Office Visit 04/03/2019 2:35p [facility] Nephrology Marlon Gutierrez N17.9 Acute kidney MD Kisha failure, unspecified D63.1 Anemia in chronic kidney disease Office Visit 04/03/2019 1:46p [facility] Lobo D63.1 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,CAMILO Vaughn chronic kidney Hospitalists disease N17.9 Acute kidney failure, unspecified E11.22 Type 2 diabetes mellitus w diabetic chronic kidney disease N18.9 Chronic kidney disease, unspecified Office Visit 04/02/2019 3:11p [facility] D63.1 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,pc Merari, ARMHOLE PRESSER chronic kidney Hospitalists disease N17.9 Acute kidney failure, unspecified 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 N18.9 Chronic kidney disease, unspecified Office Visit 03/27/2019 2:00p [facility] Nephrology Marlon Gutierrez N18.4 Chronic kidney MD Kisha disease, stage 4 (severe) K74.60 Unspecified cirrhosis of liver E11.22 Type 2 diabetes mellitus w diabetic chronic kidney disease E87.70 Fluid overload, unspecified R06.02 Shortness of breath Z68.43 Body mass index (BMI) 50.0-59.9, adult Office Visit 02/21/2019 10:17a [facility] Jessica Luther R78.81 Bacteremia Infectious Diseases Mery Bowen I89.0 Lymphedema, not elsewhere classified Office Visit 02/21/2019 [facility] Jessica Valdez, A40.8 Other 1:14p Assoc,pc ARMHOLE PRESSER streptococcal Hospitalists sepsis K72.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, unspecified without coma R18.8 Other ascites D63.1 Anemia in chronic kidney disease N18.9 Chronic kidney disease, unspecified 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 chronic kidney 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/unsp [facility] E78.5 Hyperlipidemia, unspecified Office Visit 02/20/2019 10:16a [facility] Jessica Luther R78.81 Bacteremia Infectious Diseases Mery Bowen I89.0 Lymphedema, not elsewhere classified Office Visit 02/20/2019 [facility] A49.1 Streptococcal 1:13p Assoc,theron Olivera MD infection, Hospitalists unspecified site D64.9 Anemia, unspecified I86.4 Gastric varices D69.6 Thrombocytopenia, unspecified E11.9 Type 2 diabetes mellitus without complications G89.4 Chronic pain syndrome Office Visit 02/19/2019 [facility] A49.1 Streptococcal 1:13p Assoc,theron Olivera MD infection, Hospitalists unspecified site N17.9 Acute kidney failure, unspecified D64.9 Anemia, unspecified I86.4 Gastric varices D69.6 Thrombocytopenia, unspecified E11.9 Type 2 diabetes mellitus without complications G89.4 Chronic pain syndrome Office Visit 02/18/2019 [facility] Janelle A49.1 Streptococcal 1:12p Assoc,pc Senner, DO infection, Hospitalists unspecified site R65.20 Severe sepsis without septic shock D64.9 Anemia, unspecified N17.9 Acute kidney failure, unspecified D69.6 Thrombocytopenia, unspecified E11.9 Type 2 diabetes mellitus without complications G89.4 Chronic pain syndrome R53.1 Weakness Office Visit 02/17/2019 10:14a [facility] Anmol Luther R78.81 Bacteremia Infectious Diseases Mery Bowen I89.0 Lymphedema, not elsewhere classified E11.22 Type 2 diabetes mellitus w diabetic chronic kidney disease N18.9 Chronic kidney disease, unspecified Office Visit 02/17/2019 1:12p [facility] Janelle Devi, R78.81 Bacteremia Assoc,pc Hospitalists DO R65.20 Severe sepsis without septic shock N17.9 Acute kidney failure, unspecified D64.9 Anemia, unspecified D69.6 Thrombocytopenia, unspecified R53.1 Weakness G89.4 Chronic pain syndrome Office Visit 02/16/2019 [facility] Emily R50.9 Fever, 1:11p Assoc,pc ELOISA Whelan unspecified Hospitalists R53.1 Weakness N17.9 Acute kidney failure, unspecified D64.9 Anemia, unspecified Office Visit 01/03/2019 7:00a [facility] Rizwan Flores, R47.01 Aphasia Q21.1 Atrial septal defect E78.5 Hyperlipidemia, unspecified E66.9 Obesity, unspecified Office Visit 01/03/2019 11:01a [facility] Poppy Heather, G45.9 Transient Assoc,pc ARMHOLE PRESSER cerebral ischemic Hospitalists attack, unspecified N17.9 Acute kidney failure, unspecified 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 N18.3 Chronic kidney disease, stage 3 (moderate) Office Visit 01/01/2019 7:00a [facility] Rizwan Flores, R47.01 Aphasia R41.82 Altered mental status, unspecified Office Visit 01/01/2019 [facility] Jessica Valdez, G45.9 Transient 11:01a Assoc,pc ARMHOLE PRESSER cerebral ischemic Hospitalists attack, unspecified D69.6 Thrombocytopenia, unspecified D64.9 Anemia, unspecified R79.89 Other specified abnormal findings of blood chemistry Assessments Date Code Description Provider 05/01/2019 R54 Age-related physical debility Lavern Dang MD 05/01/2019 N18.4 Chronic kidney disease, stage 4 (severe) Lavern Dang MD 05/01/2019 D63.1 Anemia in chronic kidney disease Lavern Dang MD 05/01/2019 K74.60 Unspecified cirrhosis of liver Lavern Dang MD 05/01/2019 K29.61 Other gastritis with bleeding Lavern Dang MD 05/01/2019 R18.8 Other ascites Lavern Dang MD 05/01/2019 E11.22 Type 2 diabetes mellitus with diabetic Lavern Dang MD chronic kidney disease 05/01/2019 Z68.43 Body mass index (BMI) 50.0-59.9, adult Lavern Dang MD 04/29/2019 R54 Age-related physical [...] (BMI) 50.0-59.9, adult Lavern Dang MD 04/18/2019 N17.9 Acute kidney failure, unspecified Meche An MD 04/18/2019 N18.4 Chronic kidney disease, stage 4 (severe) Meche An MD 04/16/2019 K72.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, unspecified without [...] MD 04/15/2019 N17.9 Acute kidney failure, unspecified Meceh An MD 04/15/2019 N17.9 Acute kidney failure, [...] pain syndrome Cindy Husain MD 04/13/2019 Z79.4 [facility] (current) use of insulin Cindy Husain MD [...] MD 04/11/2019 K27.9 Peptic ulcer, site unspecified, sIabel Motta MD unspecified as acute or chronic, 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.4 [facility] (current) use of insulin Katey Lopez MD [...] failure, unspecified without coma Rosaline Stocking , DISK OPERATOR 04/06/2019 E72.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, Rosaline Stocking, DISK OPERATOR unspecified 04/06/2019 K75.81 Nonalcoholic steatohepatitis ([place]) Rosaline Stocking, DISK OPERATOR 04/06/2019 I10 Essential (primary) hypertension Rosaline Stocking, DISK OPERATOR 04/05/2019 N17.9 Acute kidney failure, unspecified Meche An MD 04/05/2019 K72.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, unspecified without coma Rosaline Stocking , DISK OPERATOR 04/05/2019 N18.4 Chronic kidney disease, stage 4 (severe) Meche An MD 04/05/2019 D63.8 Anemia in other chronic diseases Rosaline Stocking, DISK OPERATOR classified elsewhere 04/05/2019 E72.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, Rosaline Stocking, DISK OPERATOR unspecified 04/05/2019 E87.70 Fluid overload, unspecified Rosaline Stocking, DISK OPERATOR 04/04/2019 D64.9 Anemia, unspecified CAMILO Cabezas 04/04/2019 [...] D63.1 Anemia in chronic kidney disease Araceli Shortle, ARMHOLE PRESSER 04/02/2019 N17.9 Acute kidney failure, unspecified Araceli Shortle, ARMHOLE PRESSER 04/02/2019 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 chronic kidney disease with Araceli Shortle, ARMHOLE PRESSER stage 1 through stage 4 chronic kidney disease, or unspecified chronic kidney disease 04/02/2019 N18.9 Chronic kidney disease, unspecified Araceli Shortle, ARMHOLE PRESSER 03/27/2019 N18.4 Chronic kidney disease, stage 4 [...] M.D. 02/17/2019 I89.0 Lymphedema, not elsewhere classified Amnol Bowen M.D. 02/17/2019 R78.81 Bacteremia Janelle Senluis, [...] Senner, DO 02/16/2019 R50.9 Fever, unspecified Emily Barstow, ARMHOLE PRESSER 02/16/2019 R53.1 Weakness Emily Barstow, ARMHOLE PRESSER 02/16/2019 N17.9 Acute kidney failure, unspecified Emily Barstow, ARMHOLE PRESSER 02/16/2019 D64.9 Anemia, unspecified Emily Cleopatra, ARMHOLE PRESSER 01/03/2019 R47.01 Aphasia Rizwan Flores MD 01/03/2019 Q21.1 Atrial septal defect Rizwan Flores MD 01/03/2019 G45.9 Transient cerebral ischemic attack, Poppy Heather, ARMHOLE PRESSER unspecified 01/03/2019 E78.5 Hyperlipidemia, unspecified Rizwan Flores MD 01/03/2019 E66.9 Obesity, unspecified Rizwan Flores MD 01/03/2019 N17.9 Acute kidney failure, unspecified Poppy Heather, ARMHOLE PRESSER 01/03/2019 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 chronic kidney disease with Poppy Heather, ARMHOLE PRESSER stage 1 through stage 4 chronic kidney disease, or unspecified chronic kidney disease 01/03/2019 N18.3 Chronic kidney disease, stage 3 Poppy Heather, ARMHOLE PRESSER (moderate) 01/02/2019 I63.9 Cerebral infarction, unspecified Femi Aguirre M.D. 01/02/2019 G45.9 Transient cerebral ischemic attack, Poppy Heather, ARMHOLE PRESSER unspecified 01/02/2019 N18.3 Chronic kidney disease, stage 3 Poppy Heather, ARMHOLE PRESSER (moderate) 01/02/2019 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 chronic kidney disease with Poppy Heather, ARMHOLE PRESSER stage 1 through stage 4 chronic kidney [...]
--- OUTSIDE RECORDS SUMMARY | 2019-05-13 04:35 | XMS REPORT | Continuity of Care Document ---
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 03/06/2019 day MD Kisha 40mg Tablets Nystatin apply twice a day Unknown until resolved. [id number]/GM Cream Allopurinol 1 by mouth every Unknown [...] mouth twice Unknown 20mg daily Capsules DR Nikita Mejía inject 20 units Unknown once daily 100Unit/ML Solution Pen-Inject Lisinopril 1 by mouth every Unknown 20mg day Tablets Aspirin 81 1 by mouth every Unknown 81mg day Tablets DR JERNIGAN Unknown [place]-3 Fish Oil take 1 tab by mouth [...] Result H/L Range Note Basic Metabolic 04/29/2019 [facility] Sodium 138 mmol/L Normal 135-145 1 Panel [address] [place] [address] [phone] Potassium 3.6 mmol/L Normal 3.5-5.0 Chloride 99 mmol/L Low 101-111 Co2 Carbon Dioxide 32 mmol/L Normal 22-32 Anion Gap 7 mmol/L Normal 2-11 Glucose 193 mg/dL High 70-100 Blood Urea Nitrogen 33 mg/dL High 6-24 Creatinine 1.86 mg/dL High 0.51-0.95 BUN/Creatinine Ratio 17.7 Normal 8-20 Calcium 8.3 mg/dL Low 8.6-10.3 Egfr Non- 26.6 >60 Egfr 32.1 >60 2 Comp Metabolic 04/23/2019 [facility] Sodium 139 mmol/L Normal 135-145 Panel [address] [place] [address] [phone] Potassium 3.7 mmol/L Normal 3.5-5.0 Chloride 99 [...] Egfr 28.7 >60 3 Laboratory test 04/23/2019 [facility] Ammonia 86 mcmol/L High 16-[address] [place] [address] [phone] Laboratory test 04/22/2019 [facility] Pathologist (SEE NOTE) 4, [address] [place] [address] [phone] Manual 04/22/2019 [facility] Neutrophil % 58.0 % Differential [address] [place] [address] [phone] Lymphocytes % 25.0 % Monocytes % 10.0 % Eosinophils % 6.0 % Variant Lymph % 1.0 % Normal 0-6 Hypochromasia 1+ Anisocytosis 2+ Target Cells 1+ Stomatocytes 1+ CBC Auto 04/22/2019 [facility] White Blood 5.7 10^3/uL Normal 3.5-10.[address] [place] [address] [phone] Red Blood Count 2.47 10^6/uL Low 3.70-4.87 [...] Blood Cells % 0.0 Laboratory test 04/22/2019 [facility] Prealbumin 5 mg/dL Low 18-38 6 finding [address] [place] [address] [phone] Basic Metabolic 04/22/2019 [facility] Sodium 139 mmol/L Normal 135-145 Panel [address] [place] [address] [phone] Potassium 4.2 mmol/L Normal 3.5-5.0 Chloride 98 mmol/L Low 101-111 Co2 Carbon Dioxide 33 mmol/L High 22-32 Anion Gap 8 mmol/L Normal 2-11 Glucose 176 mg/dL High 70-100 Blood Urea Nitrogen 42 mg/dL High 6-24 Creatinine 2.08 mg/dL High 0.51-0.95 BUN/Creatinine Ratio 20.2 High 8-20 Calcium 8.9 mg/dL Normal 8.6-10.3 Egfr Non- 23.3 >60 Egfr 28.2 >60 7 Laboratory test 04/22/2019 [facility] Ammonia TNP mcmol/L 16- 53 8, 9 finding [address] [place] [address] [phone] Comp Metabolic 04/22/2019 [facility] Sodium 137 mmol/L Normal 135-145 Panel [address] [place] [address] [phone] Potassium 3.9 mmol/L Normal 3.5-5.0 Chloride 97 [...] 28.9 >60 10 Type & Screen 04/02/2019 [facility] Patient Blood Type A Positive [address] [place] [address] [phone] Antibody Screen NEGATIVE Laboratory test 04/02/2019 [facility] Packed Cells SEE RESULTS [address] [place] <[place] [address] NOTE> [phone] Urine Culture And 03/27/2019 [facility] Urine Culture SEE RESULT [address] [place] [address] [phone] Laboratory test 03/27/2019 [facility] Pathologist (SEE NOTE) [address] [place] [address] [phone] Cell Morphology 03/27/2019 [facility] Macrocytosis 3+ [address] [place] [address] [phone] Anisocytosis 2+ Target Cells 1+ Laboratory test 03/27/2019 [facility] Ferritin 117.2 ng/mL Normal 11-[address] [place] [address] [phone] B-Type Natriuretic Peptide BNP 839 pg/mL High <=100 Iron & Iron Binding 03/27/2019 [facility] Iron 105 g/dL Normal 50-[address] [place] [address] [phone] Unsaturated Iron Binding < 209 g/dL Total Iron Binding Capacity 224 g/dL Low 250-450 Transferrin 160 mg/dL Low 203-362 % Iron Saturation 47 % Normal 15-55 Laboratory test 03/27/2019 [facility] Hemoglobin A1c 5.1 % Normal 4.0-5.[address] (Glyco HGB) [place] [address] [phone] Albumin 2.0 g/dL Low 3.2-5.2 Urinalysis Profile 03/27/2019 [facility] Urine Color Yellow [address] [place] [address] [phone] Urine Appearance Clear Urine Specific [place] 1.012 Normal 1.010-1.030 Urine pH 5.0 Normal [...] Cell Present Abnormal Absent Basic Metabolic 03/27/2019 [facility] Sodium 138 mmol/L Normal 135-[address] [place] [address] [phone] Co2 Carbon Dioxide 17 mmol/L Low 22-32 Glucose 110 mg/dL High 70-100 Blood Urea Nitrogen 52 mg/dL High 6-24 Creatinine 5.41 mg/dL High 0.51-0.95 BUN/Creatinine Ratio 9.6 Normal 8-20 Calcium 8.3 mg/dL Low 8.6-10.3 Egfr Non- 7.7 >60 Egfr 9.4 >60 16 Potassium 5.5 mmol/L High 3.5-5.0 Chloride 113 mmol/L High 101-111 Anion Gap 8 mmol/L Normal 2-11 CBC Auto 03/27/2019 [facility] White Blood 6.7 10^3/uL Normal 3.5-10.[address] [place] [address] [phone] Red Blood Count 2.17 10^6/uL Low 3.70-4.87 [...] Blood Cells % 0.2 Neph Routine 03/27/2019 [facility] Total Protein Random 43 mg/ dL [address] [place] [address] [phone] Creatinine Random Urine 117.28 mg/dL Laboratory 02/16/2019 [facility] Lactic Acid 5.3 Critical 0.5- 2.0 18 test finding [address] mmol/[place] [address] [phone] Influenza A & 02/16/2019 [facility] Flu AB (SEE 19, B Request [address] Disclaimer NOTE) 20 [place] [address] [phone] Influenza A Molecular NEGATIVE Negative Influenza B Molecular NEGATIVE Negative 21 1 [id number] 2 Because ethnic data is not always [...] 5 Kidney failure <15 (or dialysis) 4 [id number] 5 Macrocytic anemia. Mild thrombocytopenia. No evidence of hemolytic process. Reviewed by Mónica Snow MD 6 [id number] 7 Because ethnic data is not always [...] 5 Kidney failure <15 (or dialysis) 8 [id number] 9 Unable to report test result due [...] ISSUES PER PT 12 SEE RESULTS BELOW [id number] AP PC TRANSFUSED 04/02/19 2324 [id number] AP PC TRANSFUSED 04/03/19 0936 [id number] AP PC TRANSFUSED 04/04/19 0628 [id number] AP PC TRANSFUSED 04/04/19 0935 13 SEE RESULT BELOW Name: BONNIE AGUILERA : [address]: Marlon Beard MD Acct: [id number] Unit: [id number] AGE: 73 Location: LAB Re03/27/19 SEX: F Status: REG REF SPEC: [id number] [place]: 03/27/19-[address]: Marlon Beard MD REQ: [id number] RECD: 03/27/19918 STATUS: COMP _ SOURCE: URINE SPDESC: ORDERED: Urine Culture Procedure Result Reported Site Urine Culture Final 03/28/19- 1406 ML No Growth (<1,000 CFU/mL) * ML - Main Lab . END OF REPORT DEPARTMENT OF PATHOLOGY, [address] [place] [address] Nic Weber M.D. Director [facility] # [id number] 14 Moderate macrocytic anemia with thrombocytopenia noted. Clinical correlation suggested. Additional studies is warranted. Reviewed by Dr. Weber 15 Therapeutic target for the treatment of diabetes mellitus patients is <7% HBA1C, and in selective patients <6.0%. Please refer to [employer] diabetic care guidelines for further [...] 02/19/19. 18 Critical Result LACT:5.3 Called to [id number] at: 22:01:07 by:[id number] Read back by:[id number] [facility] Severe Sepsis and Septic Shock Management Bundle Measure requires all lactic acids initially measuring >2.0 mmol/L be repeated. Critical Result LACT:5.3 Called to [id number] at: 22:01:07 by:[id number] Read back by:[id number] [facility] Severe Sepsis and Septic Shock Management Bundle Measure requires all lactic acids initially measuring >2.0 mmol/L be repeated. 19 NASAL 20 Suboptimal collection technique may reduce sensitivity of test. Refer to the [facility] Test Catalog for collection information: [email or web address] As with all diagnostic procedures, the laboratory results obtained should be used in conjunction with other clinical information available to the physician, including confirmation by another method, as applicable. 21 Window Trimmer Apprentice: [id number] Procedures Date Code Description Status 02/18/2019 30640 Moderate Sedation Services; Same Phys Intl 15 Mins; PT >= Completed 5 Years 02/18/2019 53017 Color Flow Doppler/Interp & Reprt Completed 02/18/2019 44711 Pulse Wave/Continuous-Interp.RPT Completed 02/18/2019 51619 Echocardiography, Transesophageal, Real Time W/Image 2D Completed W/W/O M-M 01/02/2019 17774 ECHO Transthorasic Realtime 2D W Doppler & Color Flow Hosp Completed Medical Devices Description No Information Available Encounters Type Date Location Provider Dx Diagnosis Office Visit 04/18/2019 [facility] K72.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, 3:26p theron Escalante MD unspecified Hospitalists without coma N17.9 Acute kidney failure, unspecified I50.9 Heart failure, unspecified D64.9 Anemia, unspecified E11.9 Type 2 diabetes mellitus without complications G89.29 Other chronic pain Office Visit 04/18/2019 10:16a [facility] Nephrology Meche An, N17.9 Acute kidney MD failure, unspecified N18.4 Chronic kidney disease, stage 4 (severe) Office Visit 04/17/2019 [facility] K72.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, 3:26p theron Escalante MD unspecified Hospitalists without coma N17.9 Acute kidney failure, unspecified D64.9 Anemia, unspecified G89.4 Chronic pain syndrome Office Visit 04/16/2019 3:25p [facility] K72.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, theron Escalante MD unspecified Hospitalists without coma D64.9 Anemia, [...] kidney disease, unspecified Office Visit 04/15/2019 3:25p [facility] Katey John, K72.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, Assoctheron MD unspecified Hospitalists without coma N17.9 Acute kidney failure, unspecified D64.9 Anemia, unspecified G89.4 Chronic pain syndrome Office Visit 04/15/2019 10:15a [facility] Nephrology Meche Haynes Negreina, N17.9 Acute kidney MD failure, unspecified Office Visit 04/14/2019 3:25p [facility] K72.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, Assoc,theron Motta MD unspecified Hospitalists without coma N17.9 Acute kidney failure, unspecified D64.9 Anemia, unspecified K27.9 Peptic ulc, site unsp, unsp as ac or chr, w/o hemor or perf Office Visit 04/14/2019 10:15a [facility] Nephrology Meche Haynes N17.9 Acute kidney MD Juve failure, unspecified Office Visit 04/13/2019 3:24p [facility] K72.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, Assoctheron MD unspecified Hospitalists without coma N17.9 Acute kidney failure, unspecified D64.9 Anemia, unspecified K27.9 Peptic ulc, site unsp, unsp as ac or chr, w/o hemor or perf G89.4 Chronic pain syndrome Z79.4 ocean transportation intermediary (current) use of insulin E11.9 Type 2 diabetes mellitus without complications Office Visit 04/13/2019 [facility] Nephrology Marlon Gutierrez N17.9 Acute kidney 1:52p MD Kisha failure, unspecified Office Visit 04/12/2019 [facility] Nephrology Marlon Gutierrez N17.9 Acute kidney 1:52p MD Kisha failure, unspecified Office Visit 04/11/2019 [facility] K72.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, 3:23p Assoctherno MD unspecified Hospitalists without coma N17.9 Acute kidney failure, unspecified D64.9 Anemia, unspecified K27.9 Peptic ulc, site unsp, unsp as ac or chr, w/o hemor or perf G89.4 Chronic pain syndrome Office Visit 04/11/2019 [facility] Nephrology Marlon Gutierrez N17.9 Acute kidney 1:52p MD Kisha failure, unspecified Office Visit 04/10/2019 [facility] K72.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, 3:23p Assoc,pc Antione Finnegan. 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 Nephrology Marlon Gutierrez N17.9 Acute kidney 9:09a MD Kisha failure, unspecified Office Visit 04/09/2019 [facility] Katey Lopez MD K72.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, 3:23p ,pc unspecified Hospitalists without coma D64.9 Anemia, unspecified N17.9 Acute kidney failure, unspecified G89.4 Chronic pain syndrome K27.9 Peptic ulc, site unsp, unsp as ac or chr, w/o hemor or perf 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 I50.30 Unspecified diastolic (congestive) heart failure Z79.4 ocean transportation intermediary (current) use of insulin E11.22 Type 2 diabetes mellitus w diabetic chronic kidney disease N18.9 Chronic kidney disease, unspecified Office Visit 04/08/2019 3:22p [facility] Katey Lopez, K72.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, Assoctheron [...] kidney disease, unspecified Office Visit 04/08/2019 10:39a [facility] Nephrology Marlon Gutierrez N17.9 Acute kidney MD Kisha failure, unspecified Office Visit 04/07/2019 1:48p Intensivists Diana Vega MD K72.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, unspecified without coma E72.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, unspecified K75.81 Nonalcoholic steatohepatitis ([place]) I10 Essential (primary) hypertension Office Visit 04/07/2019 9:20a [facility] Nephrology Marlon Gutierrez N17.9 Acute kidney MD Kisha failure, unspecified Office Visit 04/06/2019 1:47p Intensivists Rosaline K72.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 , Stocking, [employer] unspecified without coma E72.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, unspecified K75.81 Nonalcoholic steatohepatitis ([place]) I10 Essential (primary) hypertension Office Visit 04/05/2019 10:13a [facility] Nephrology Meche An, N17.9 Acute kidney MD failure, unspecified N18.4 Chronic kidney disease, stage 4 (severe) Office Visit 04/05/2019 1:47p Intensivists Rosaline K72.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 , Stocking, [employer] unspecified without coma D63.8 Anemia in other chronic diseases classified elsewhere E72.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, unspecified E87.70 Fluid overload, unspecified Office Visit 04/04/2019 2:53p [facility] Nephrology Meche An, N17.9 Acute kidney MD failure, unspecified N18.4 Chronic kidney disease, stage 4 (severe) E87.70 Fluid overload, unspecified D63.1 Anemia in chronic kidney disease Office Visit 04/04/2019 1:47p [facility] [place] D64.9 Anemia, Assoc,CAMILO Vaughn unspecified Hospitalists N17.9 Acute kidney failure, unspecified K72.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, unspecified without coma K75.81 Nonalcoholic steatohepatitis ([place]) Office Visit 04/03/2019 1:46p [facility] Mohit Diamond D63.1 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,pc CAMILO Ceballos chronic kidney Hospitalists disease N17.9 Acute kidney failure, unspecified E11.22 Type 2 diabetes mellitus w diabetic chronic kidney disease N18.9 Chronic kidney disease, unspecified Office Visit 04/03/2019 2:35p [facility] Nephrology Marlon Gutierrez N17.9 Acute kidney MD Kisah failure, unspecified D63.1 Anemia in chronic kidney disease Office Visit 04/02/2019 3:11p [facility] Araceli D63.1 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,pc ELOISA Gage chronic kidney Hospitalists disease N17.9 Acute kidney failure, unspecified 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 N18.9 Chronic kidney disease, unspecified Office Visit 03/27/2019 2:00p [facility] Nephrology Marlon Gutierrez N18.4 Chronic kidney MD Kisha disease, stage 4 (severe) K74.60 Unspecified cirrhosis of liver E11.22 Type 2 diabetes mellitus w diabetic chronic kidney disease E87.70 Fluid overload, unspecified R06.02 Shortness of breath Z68.43 Body mass index (BMI) 50.0-59.9, adult Office Visit 02/21/2019 10:17a [facility] Jessica Luther R78.81 Bacteremia Infectious Diseases Mery Bowen I89.0 Lymphedema, not elsewhere classified Office Visit 02/21/2019 [facility] Jessica Valdez, A40.8 Other 1:14p Assoc,pc ASSISTANT CHIEF ENGINEER streptococcal Hospitalists sepsis K72.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, unspecified without coma R18.8 Other ascites D63.1 Anemia in chronic kidney disease N18.9 Chronic kidney disease, unspecified 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 E78.5 Hyperlipidemia, unspecified Office Visit 02/20/2019 [facility] Missy A49.1 Streptococcal 1:13p Assoc,pc MD Joselin infection, Hospitalists unspecified site D64.9 Anemia, unspecified I86.4 Gastric varices D69.6 Thrombocytopenia, unspecified E11.9 Type 2 diabetes mellitus without complications G89.4 Chronic pain syndrome Office Visit 02/20/2019 10:16a [facility] Anmol Luther R78.81 Bacteremia Infectious Diseases Mery Bowen I89.0 Lymphedema, not elsewhere classified Office Visit 02/19/2019 [facility] Missy A49.1 Streptococcal 1:13p Assoc,pc MD Joselin infection, Hospitalists unspecified site N17.9 Acute kidney failure, unspecified D64.9 Anemia, unspecified I86.4 Gastric varices D69.6 Thrombocytopenia, unspecified E11.9 Type 2 diabetes mellitus without complications G89.4 Chronic pain syndrome Office Visit 02/18/2019 [facility] A49.1 Streptococcal 1:12p Assoc,pc Marito, infection, Hospitalists unspecified site R65.20 Severe sepsis without septic shock D64.9 Anemia, unspecified N17.9 Acute kidney failure, unspecified D69.6 Thrombocytopenia, unspecified E11.9 Type 2 diabetes mellitus without complications G89.4 Chronic pain syndrome R53.1 Weakness Office Visit 02/17/2019 10:14a [facility] Anmol Luther R78.81 Bacteremia Infectious Diseases Mery Bowen I89.0 Lymphedema, not elsewhere classified E11.22 Type 2 diabetes mellitus w diabetic chronic kidney disease N18.9 Chronic kidney disease, unspecified Office Visit 02/17/2019 1:12p [facility] Janellerenzo Devi, R78.81 Bacteremia Assoc, Hospitalists DO R65.20 Severe sepsis without septic shock N17.9 Acute kidney failure, unspecified D64.9 Anemia, unspecified D69.6 Thrombocytopenia, unspecified R53.1 Weakness G89.4 Chronic pain syndrome Office Visit 02/16/2019 [facility] Emily R50.9 Fever, 1:11p Assoc,pc ELOISA Whelan unspecified Hospitalists R53.1 Weakness N17.9 Acute kidney failure, unspecified D64.9 Anemia, unspecified Office Visit 01/03/2019 7:00a [facility] Rizwan Flores, R47.01 Aphasia Q21.1 Atrial septal defect E78.5 Hyperlipidemia, unspecified E66.9 Obesity, unspecified Office Visit 01/03/2019 11:01a [facility] Poppy Heather, G45.9 Transient Assoc,pc ASSISTANT CHIEF ENGINEER cerebral ischemic Hospitalists attack, unspecified N17.9 Acute kidney failure, unspecified 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 04/10/2019 D64.9 Anemia, unspecified Rosio Finnegan D.O. 04/10/2019 N17.9 Acute kidney failure, unspecified Marlon Beard MD 04/10/2019 N17.9 Acute kidney failure, unspecified Rosio Finnegan D.O. 04/10/2019 G89.4 Chronic pain syndrome Rosio Finnegan D.O. 04/10/2019 K27.9 Peptic ulcer, site unspecified, Rosio Finnegan, D.O. unspecified as acute or chronic, without hemorrhage or perforation 04/10/2019 I11.0 Hypertensive heart disease with heart Rosio Finnegan D.O. failure 04/10/2019 I50.30 Unspecified diastolic (congestive) heart Rosio Finnegan D.O. failure 04/10/2019 E11.9 Type 2 diabetes mellitus without Rosiomarisol Finnegan, D.O. complications 04/09/2019 K72.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, unspecified 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.4 snf (current) use of insulin Katey Lopez MD [...] failure, unspecified without coma Rosaline Stocking , [employer] 04/06/2019 E72.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, Rosaline Stocking, [employer] unspecified 04/06/2019 K75.81 Nonalcoholic steatohepatitis ([place]) Rosaline Stocking, [employer] 04/06/2019 I10 Essential (primary) hypertension Rosaline Stocking, [employer] 04/05/2019 N17.9 Acute kidney failure, unspecified Meche An MD 04/05/2019 K72.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, unspecified without coma Rosaline Stocking , [employer] 04/05/2019 N18.4 Chronic kidney disease, stage 4 (severe) Meche An MD 04/05/2019 D63.8 Anemia in other chronic diseases Rosaline Stocking, [employer] classified elsewhere 04/05/2019 E72.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, Rosaline Stocking, [employer] unspecified 04/05/2019 E87.70 Fluid overload, unspecified Rosaline Stocking, [employer] 04/04/2019 D64.9 Anemia, unspecified CAMILO Cabezas 04/04/2019 [...] Anemia in chronic kidney disease Araceli Shortle, ASSISTANT CHIEF ENGINEER 04/02/2019 N17.9 Acute kidney failure, unspecified Araceli Shortle, ASSISTANT CHIEF ENGINEER 04/02/2019 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 chronic kidney disease with Araceli Shortle, ASSISTANT CHIEF ENGINEER stage 1 through stage 4 chronic kidney disease, or unspecified chronic kidney disease 04/02/2019 N18.9 Chronic kidney disease, unspecified Araceli Shortle, ASSISTANT CHIEF ENGINEER 03/27/2019 N18.4 Chronic kidney disease, stage 4 (severe) Marlon Beard MD 03/27/2019 K74.60 Unspecified cirrhosis of liver Marlon Beard MD 03/27/2019 E11.22 Type 2 diabetes mellitus with diabetic Marlon Beard MD chronic kidney disease 03/27/2019 E87.70 Fluid overload, travisified Marlon Beard MD 03/27/2019 R06.02 Shortness of [...] kidney disease 02/21/2019 E78.5 Hyperlipidemia, unspecified Jessica Valdez, ELOISA 02/20/2019 R78.81 Bacteremia Anmol Bowen M.D. 02/20/2019 [...] Senner, DO 02/16/2019 R50.9 Fever, unspecified Emily Whelan, ASSISTANT CHIEF ENGINEER 02/16/2019 R53.1 Weakness Emily Fremont, ASSISTANT CHIEF ENGINEER 02/16/2019 N17.9 Acute kidney failure, unspecified Emily [place]rem[place], ASSISTANT CHIEF ENGINEER 02/16/2019 D64.9 Anemia, unspecified Emily [place]remont, ASSISTANT CHIEF ENGINEER 01/03/2019 R47.01 Aphasia Rizwan Flores MD 01/03/2019 Q21.1 Atrial septal defect Rizwan Flores MD 01/03/2019 G45.9 Transient cerebral ischemic attack, Poppy Heather, ASSISTANT CHIEF ENGINEER unspecified 01/03/2019 E78.5 Hyperlipidemia, unspecified Rizwan Flores MD 01/03/2019 E66.9 Obesity, unspecified Rizwan Flores MD 01/03/2019 N17.9 Acute kidney failure, unspecified Poppy Heather, ASSISTANT CHIEF ENGINEER 01/03/2019 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 chronic kidney disease with Poppy Heather, ASSISTANT CHIEF ENGINEER stage 1 through stage 4 chronic kidney disease, or unspecified chronic kidney disease 01/03/2019 N18.3 Chronic kidney disease, stage 3 Poppy Heather, ASSISTANT CHIEF ENGINEER (moderate) 01/02/2019 I63.9 Cerebral infarction, unspecified Femi Aguirre M.D. 01/02/2019 G45.9 Transient cerebral ischemic attack, Poppy Heather, ASSISTANT CHIEF ENGINEER unspecified 01/02/2019 N18.3 Chronic kidney disease, stage 3 Poppy Heather, ASSISTANT CHIEF ENGINEER (moderate) 01/02/2019 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 chronic kidney disease with Poppy Heather, ASSISTANT CHIEF ENGINEER stage 1 through stage 4 chronic kidney [...]
--- OUTSIDE RECORDS SUMMARY | 2019-05-13 04:35 | XMS REPORT ---
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, disease, stage 4 stage 4 (severe) (severe) Pain frequent Pain Mgmt Active 2020-0 Dione pain 05-07 [place] 08:50: [id number] 00 Cardio edema Cardiovasc Active 2020-0 Dione ular 05-07 [place] 08:50: [id number] 00 Respiratory dyspnea Respirator Active 2020-0 Dione present y 05-07 [place] 08:50: [id number] 00 Endo/Satya glucose Endo/Satya Active 2020-0 [facility] testing 05-07 [place] dependence 08:50: [id number] 00 Endo/Satya diabetic Endo/Satya Active 2020-0 Dione foot care 05-07 [place] 08:50: [id number] 00 Nutrition nutritional Nutrition Active 2020-0 Dione restriction 05-07 [place] s 08:50: [id number] 00 Elimination diarrhea Eliminatio Active 2020-0 [facility] n 05-07 [place] 08:50: [id number] 00 Activity ADL Activity Active 2020-0 Dione assistance 05-07 [place] required 08:50: [id number] 00 Activity self-care Activity Active 2020-0 Dione deficit 05-07 [place] 08:50: [id number] 00 Safety structural Safety Active 2020-0 Dione barriers 05-07 [place] present 08:50: [id number] 00 Safety fall risk Safety Active 2020-0 Dione factor 05-07 [place] present 08:50: [id number] 00 Safety risk for Safety Active 2020-0 Dione hospitaliza 05-07 [place] tion 08:50: [id number] 00 Safety can be left Safety Active 2020-0 Dione alone for 05-07 [place] only short 08:50: [id number] periods 00 Medication oral med Meds Active 2019-0 Dione assistance 05-07 [place] required 08:50: [id number] 00 Medication injectable Meds Active 2019-0 Dione med 05-07 [place] assistance 08:50: [id number] required 00 Medication knowledge/s Meds Active 0 Dione kill 05-07 [place] deficit: pt 08:50: [id number] 00 Musculoskel transfer Musculoske Active 2019-0 Dione etal assistance letal 05-07 [place] required 08:50: [id number] 00 Bed transfer PT/OT: Bed Active 2019-0 Peter Mobility/Tr deficit: Mobility/T 3-12 autumn Martinez sit/stand ransfer 13:00: PT 00 [id number] Bed transfer PT/OT: Bed Active 2020-0 Peter Mobility/Tr deficit: Mobility/T 3-12 autumn Martinez standing ransfer 13:00: PT pivot 00 [id number] Bed transfer PT/OT: Bed Active 2020-0 Peter Mobility/Tr deficit: Mobility/T 3-12 autumn Martinez toilet/comm ransfer 13:00: PT ode 00 [id number] Bed transfer PT/OT: Bed Active 2020-0 Peter Mobility/Tr deficit: Mobility/T 3-12 autumn Martinez shower/tub ransfer 13:00: PT 00 [id number] Bed knowledge/s PT/OT: Bed Active 2020-0 Peter Mobility/Tr kill Mobility/T 3-12 autumn Martinez deficit: pt ransfer 13:00: PT 00 [id number] Gait/Locomo knowledge/s PT/OT: Active 2020-0 Peter tion kill Gait/Locom 3-12 Juan, problems deficit: pt otion 13:00: PT 00 [id number] Gait/Locomo gait PT/OT: Active 2020-0 Peter tion deficit Gait/Locom 3-12 Juan, problems otion 13:00: PT 00 [id number] Allergies, Adverse Reactions, Alerts Allergy Allergy Status [...] Unknown Unknown 10 gram/15 10 gram/15 3-12 Raaft TORRES mL (15 mL) mL (15 mL) [...] TORRES million million unit powder unit powder [place] 3-6-9 [place] 3-6-9 Yes Midura Unknown Unknown 1,200 mg [...] Observation Time Observation Value Comments SYSTOLIC mm[Hg] 2019-05-10 18:10:52 138 mm[Hg] mm[Hg] Method: Sit SYSTOLIC mm[Hg] 2019-05-08 18:10:50 152 mm[Hg] mm[Hg] Method: Stand DIASTOLIC mm[Hg] 2019-05-10 18:10:52 64 mm[Hg] mm[Hg] Method: Sit DIASTOLIC mm[Hg] 2019-05-08 18:10:50 82 mm[Hg] mm[Hg] Method: Stand PULSE 2019-05-10 18:10:52 68 /min /min RESP RATE 2019-05-10 18:10:52 16 /min /min TEMP 2019-05-10 18:10:52 97.1 [degF] Procedures This patient has no known procedures. Results This patient has no known results.
--- OUTSIDE RECORDS SUMMARY | 2019-05-13 04:35 | XMS REPORT | Continuity of Care Document ---
:1945 External Reference #:[id number] Author Name Isabel Motta MD (transmitted by agent of provider Leatha Schultz) Address [address] [place] [address] Care Team Providers Name Role Phone Rafat Senior MD - Family Medicine Care Team Information Cyber Incident Responder Problems Description No Information Available Social History [...] apply twice a day Unknown until resolved. 170010Aqgb/GM Cream Allopurinol 1 by mouth every Unknown [...] Unknown 81mg day Tablets DR JERNIGAN Unknown [place]ord-3 Fish Oil take 1 tab by mouth [...] Result H/L Range Note Basic Metabolic 04/29/2019 [facility] Sodium 138 mmol/L Normal 135-145 1 [address] [place] [address] [phone] Potassium 3.6 mmol/L Normal 3.5-5.0 Chloride 99 mmol/L Low 101-111 Co2 Carbon Dioxide 32 mmol/L Normal 22-32 Anion Gap 7 mmol/L Normal 2-11 Glucose 193 mg/dL High 70-100 Blood Urea Nitrogen 33 mg/dL High 6-24 Creatinine 1.86 mg/dL High 0.51-0.95 BUN/Creatinine Ratio 17.7 Normal 8-20 Calcium 8.3 mg/dL Low 8.6-10.3 Egfr Non- 26.6 >60 Egfr 32.1 >60 2 Comp Metabolic 04/23/2019 [facility] Sodium 139 mmol/L Normal 135-145 Panel [address] [place] [address] [phone] Potassium 3.7 mmol/L Normal 3.5-5.0 Chloride 99 [...] Egfr 28.7 >60 3 Laboratory test 04/23/2019 [facility] Ammonia 86 mcmol/L High 16-[address] [place] [address] [phone] Laboratory test 04/22/2019 [facility] Pathologist (SEE NOTE) 4, [address] [place] [address] [phone] Manual 04/22/2019 [facility] Neutrophil % 58.0 % Differential [address] [place] [address] [phone] Lymphocytes % 25.0 % Monocytes % 10.0 % Eosinophils % 6.0 % Variant Lymph % 1.0 % Normal 0-6 Hypochromasia 1+ Anisocytosis 2+ Target Cells 1+ Stomatocytes 1+ CBC Auto 04/22/2019 [facility] White Blood 5.7 10^3/uL Normal 3.5-10.[address] [place] [address] [phone] Red Blood Count 2.47 10^6/uL Low 3.70-4.87 [...] Blood Cells % 0.0 Laboratory test 04/22/2019 [facility] Prealbumin 5 mg/dL Low 18-38 6 [address] [place] [address] [phone] Basic Metabolic 04/22/2019 [facility] Sodium 139 mmol/L Normal 135-145 Panel [address] [place] [address] [phone] Potassium 4.2 mmol/L Normal 3.5-5.0 Chloride 98 mmol/L Low 101-111 Co2 Carbon Dioxide 33 mmol/L High 22-32 Anion Gap 8 mmol/L Normal 2-11 Glucose 176 mg/dL High 70-100 Blood Urea Nitrogen 42 mg/dL High 6-24 Creatinine 2.08 mg/dL High 0.51-0.95 BUN/Creatinine Ratio 20.2 High 8-20 Calcium 8.9 mg/dL Normal 8.6-10.3 Egfr Non- 23.3 >60 Egfr 28.2 >60 7 Laboratory test 04/22/2019 [facility] Ammonia TNP mcmol/L 16- 53 8, 9 finding [address] [place] [address] [phone] Comp Metabolic 04/22/2019 [facility] Sodium 137 mmol/L Normal 135-145 Panel [address] [place] [address] [phone] Potassium 3.9 mmol/L Normal 3.5-5.0 Chloride 97 [...] 28.9 >60 10 Type & Screen 04/02/2019 [facility] Patient Blood Type A Positive [address] [place] [address] [phone] Antibody Screen NEGATIVE Laboratory test 04/02/2019 [facility] Packed Cells SEE RESULTS [address]O <[place] [address] NOTE> [phone] Urine Culture And 03/27/2019 [facility] Urine Culture SEE RESULT [address] [place] [address] [phone] Laboratory test 03/27/2019 [facility] Pathologist (SEE NOTE) [address] [place] [address] [phone] Cell Morphology 03/27/2019 [facility] Macrocytosis 3+ [address] [place] [address] [phone] Anisocytosis 2+ Target Cells 1+ Laboratory test 03/27/2019 [facility] Ferritin 117.2 ng/mL Normal 11-[address] [place] [address] [phone] B-Type Natriuretic Peptide BNP 839 pg/mL High <=100 Iron & Iron Binding 03/27/2019 [facility] Iron 105 g/dL Normal 50-[address] [place] [address] [phone] Unsaturated Iron Binding < 209 g/dL Total Iron Binding Capacity 224 g/dL Low 250-450 Transferrin 160 mg/dL Low 203-362 % Iron Saturation 47 % Normal 15-55 Laboratory test 03/27/2019 [facility] Hemoglobin A1c 5.1 % Normal 4.0-5.[address] (Glyco HGB) [place] [address] [phone] Albumin 2.0 g/dL Low 3.2-5.2 Urinalysis Profile 03/27/2019 [facility] Urine Color Yellow [address] [place] [address] [phone] Urine Appearance Clear Urine Specific [place] 1.012 Normal 1.010-1.030 Urine pH 5.0 Normal [...] Cell Present Abnormal Absent Basic Metabolic 03/27/2019 [facility] Sodium 138 mmol/L Normal 135-[address] [place] [address] [phone] Co2 Carbon Dioxide 17 mmol/L Low 22-32 Glucose 110 mg/dL High 70-100 Blood Urea Nitrogen 52 mg/dL High 6-24 Creatinine 5.41 mg/dL High 0.51-0.95 BUN/Creatinine Ratio 9.6 Normal 8-20 Calcium 8.3 mg/dL Low 8.6-10.3 Egfr Non- 7.7 >60 Egfr 9.4 >60 16 Potassium 5.5 mmol/L High 3.5-5.0 Chloride 113 mmol/L High 101-111 Anion Gap 8 mmol/L Normal 2-11 CBC Auto 03/27/2019 [facility] White Blood 6.7 10^3/uL Normal 3.5-10.[address] [place] [address] [phone] Red Blood Count 2.17 10^6/uL Low 3.70-4.87 [...] Blood Cells % 0.2 Neph Routine 03/27/2019 [facility] Total Protein Random 43 mg/ dL [address] [place] [address] [phone] Creatinine Random Urine 117.28 mg/dL Laboratory 02/16/2019 [facility] Lactic Acid 5.3 Critical 0.5- 2.0 18 test finding [address] mmol/[place] [address] [phone] Influenza A & 02/16/2019 [facility] Flu AB (SEE 19, B Request [address] Disclaimer NOTE) 20 [place] [address] [phone] Influenza A Molecular NEGATIVE Negative Influenza B Molecular NEGATIVE Negative 21 1 [id number] 2 Because ethnic data is not always [...] 5 Kidney failure <15 (or dialysis) 4 [id number] 5 Macrocytic anemia. Mild thrombocytopenia. No evidence of hemolytic process. Reviewed by Mónica Snow MD 6 [id number] 7 Because ethnic data is not always [...] 5 Kidney failure <15 (or dialysis) 8 [id number] 9 Unable to report test result due [...] ISSUES PER PT 12 SEE RESULTS BELOW [id number] AP PC TRANSFUSED 04/02/19 2324 [id number] AP PC TRANSFUSED 04/03/19 0936 [id number] AP PC TRANSFUSED 04/04/19 0628 [id number] AP PC TRANSFUSED 04/04/19 0935 13 SEE RESULT BELOW Name: BONNIE AGUILERA : [address]: Marlon Beard MD Acct: [id number] Unit: [id number] AGE: 73 Location: LAB Re03/27/19 SEX: F Status: REG REF SPEC: [id number] CORINA: 03/27/19-[address]: Marlon Beard MD REQ: [id number] RECD: 03/27/19644 STATUS: COMP _ SOURCE: URINE SPDESC: ORDERED: Urine Culture Procedure Result Reported Site Urine Culture Final 03/28/19- 1406 ML No Growth (<1,000 CFU/mL) * ML - Main Lab . END OF REPORT DEPARTMENT OF PATHOLOGY, [address] [place] [address] Nic Weber M.D. Director [facility] # [id number] 14 Moderate macrocytic anemia with thrombocytopenia noted. Clinical correlation suggested. Additional studies is warranted. Reviewed by Dr. Weber 15 Therapeutic target for the treatment of diabetes mellitus patients is <7% HBA1C, and in selective patients <6.0%. Please refer to [place] [employer] diabetic care guidelines for further [...] 02/19/19. 18 Critical Result LACT:5.3 Called to [id number] at: 22:01:07 by:[id number] Read back by:[id number] [facility] Severe Sepsis and Septic Shock Management Bundle Measure requires all lactic acids initially measuring >2.0 mmol/L be repeated. Critical Result LACT:5.3 Called to [id number] at: 22:01:07 by:[id number] Read back by:[id number] [facility] Severe Sepsis and Septic Shock Management Bundle Measure requires all lactic acids initially measuring >2.0 mmol/L be repeated. 19 NASAL 20 Suboptimal collection technique may reduce sensitivity of test. Refer to the [facility] Test Catalog for collection information: [email or web address] As with all diagnostic procedures, the laboratory results obtained should be used in conjunction with other clinical information available to the physician, including confirmation by another method, as applicable. 21 Willow Machine Operator: [id number] Procedures Date Code Description Status 02/18/2019 16534 Moderate Sedation Services; Same Phys Intl 15 Mins; PT >= Completed 5 Years 02/18/2019 24260 Color Flow Doppler/Interp & Reprt Completed 02/18/2019 07731 Pulse Wave/Continuous-Interp.RPT Completed 02/18/2019 41209 Echocardiography, Transesophageal, Real Time W/Image 2D Completed W/W/O M-M 01/02/2019 08415 ECHO Transthorasic Realtime 2D W Doppler & Color Flow Hosp Completed Medical Devices Description No Information Available Encounters Type Date Location Provider Dx Diagnosis Office Visit 04/18/2019 [facility] Meche An MD N17.9 Acute kidney 10:16a failure, unspecified N18.4 Chronic kidney disease, stage 4 (severe) Office Visit 04/16/2019 3:25p [facility] Cindy K72.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, Assoc,pc MD [...] kidney disease, unspecified Office Visit 04/15/2019 3:25p [facility] Katey Lopez, K72.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, Assoc,pc unspecified Hospitalists without coma N17.9 Acute kidney failure, unspecified D64.9 Anemia, unspecified G89.4 Chronic pain syndrome Office Visit 04/15/2019 10:15a [facility] Meche Ivy Negoi, N17.9 Acute kidney MD failure, unspecified Office Visit 04/14/2019 3:25p [facility] K72.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, Assoctheron MD unspecified Hospitalists without coma N17.9 Acute kidney failure, unspecified D64.9 Anemia, unspecified K27.9 Peptic ulc, site unsp, unsp as ac or chr, w/o hemor or perf Office Visit 04/14/2019 10:15a [facility] Meche G N17.9 Acute kidney Juve, failure, unspecified Office Visit 04/13/2019 3:24p [facility] K72.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, Assoctheron MD unspecified Hospitalists without coma N17.9 Acute kidney failure, unspecified D64.9 Anemia, unspecified K27.9 Peptic ulc, site unsp, unsp as ac or chr, w/o hemor or perf G89.4 Chronic pain syndrome 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 N17.9 Acute kidney 1:52p MD Kisha failure, unspecified Office Visit 04/12/2019 [facility] Marlon A. N17.9 Acute kidney 1:52p MD Kisha failure, unspecified Office Visit 04/11/2019 [facility] Marlon A. N17.9 Acute kidney 1:52p MD Kisha failure, unspecified Office Visit 04/11/2019 [facility] K72.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, 3:23p theron Escalante MD unspecified Hospitalists without coma N17.9 Acute kidney failure, unspecified D64.9 Anemia, unspecified K27.9 Peptic ulc, site unsp, unsp as ac or chr, w/o hemor or perf G89.4 Chronic pain syndrome Office Visit 04/10/2019 3:23p [facility] K72.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, Assoc,theron Finnegan D.O. 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 I50.30 Unspecified diastolic (congestive) heart failure E11.9 Type 2 diabetes mellitus without complications Office Visit 04/10/2019 [facility] Marlon Gutierrez N17.9 Acute kidney 9:09a MD Kisha failure, unspecified Office Visit 04/09/2019 [facility] Katey Lopez MD K72.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, 3:23p Assoc,pc unspecified Hospitalists without coma D64.9 Anemia, unspecified N17.9 Acute kidney failure, unspecified G89.4 Chronic pain syndrome K27.9 Peptic ulc, site unsp, unsp as ac or chr, w/o hemor or perf 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 I50.30 Unspecified diastolic (congestive) heart failure Z79.4 detention (current) use of insulin E11.22 Type 2 diabetes mellitus w diabetic chronic kidney disease N18.9 Chronic kidney disease, unspecified Office Visit 04/08/2019 3:22p [facility] Katey Lopez, K72.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, Assoc,pc [...] kidney disease, unspecified Office Visit 04/08/2019 10:39a [facility] Marlon Gutierrez N17.9 Acute kidney MD Kisha failure, unspecified Office Visit 04/07/2019 1:48p [facility] Diana Vega MD K72.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, unspecified without coma E72.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, unspecified K75.81 Nonalcoholic steatohepatitis ([place]) I10 Essential (primary) hypertension Office Visit 04/07/2019 9:20a [facility] Marlon Gutierrez N17.9 Acute kidney MD Kisha failure, unspecified Office Visit 04/06/2019 1:47p [facility] Rosaline K72.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 , Stocking, SENIOR MARKET INTELLIGENCE CONSULTANT unspecified without coma E72.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, unspecified K75.81 Nonalcoholic steatohepatitis ([place]) I10 Essential (primary) hypertension Office Visit 04/05/2019 10:13a [facility] Meche An, N17.9 Acute kidney MD failure, unspecified N18.4 Chronic kidney disease, stage 4 (severe) Office Visit 04/05/2019 1:47p [facility] Rosaline K72.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 , Stocking, SENIOR MARKET INTELLIGENCE CONSULTANT unspecified without coma D63.8 Anemia in other chronic diseases classified elsewhere E72.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, unspecified E87.70 Fluid overload, unspecified Office Visit 04/04/2019 1:47p [facility] Lobo D64.9 Anemia, Assoc,CAMILO Vaugnh unspecified Hospitalists N17.9 Acute kidney failure, unspecified K72.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, unspecified without coma K75.81 Nonalcoholic steatohepatitis ([place]) Office Visit 04/04/2019 2:53p [facility] Meche An, N17.9 Acute kidney MD failure, unspecified N18.4 Chronic kidney disease, stage 4 (severe) E87.70 Fluid overload, unspecified D63.1 Anemia in chronic kidney disease Office Visit 04/03/2019 2:35p [facility] Marlon Gutierrez N17.9 Acute kidney MD Kisha failure, unspecified D63.1 Anemia in chronic kidney disease Office Visit 04/03/2019 1:46p [facility] Lobo D63.1 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,CAMILO Vaughn chronic kidney Hospitalists disease N17.9 Acute kidney failure, unspecified E11.22 Type 2 diabetes mellitus w diabetic chronic kidney disease N18.9 Chronic kidney disease, unspecified Office Visit 04/02/2019 3:11p [facility] D63.1 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,theron Gage NP chronic kidney Hospitalists disease N17.9 Acute kidney failure, unspecified 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 N18.9 Chronic kidney disease, unspecified Office Visit 03/27/2019 2:00p [facility] Marlon Gutierrez N18.4 Chronic kidney MD Kisha disease, stage 4 (severe) K74.60 Unspecified cirrhosis of liver E11.22 Type 2 diabetes mellitus w diabetic chronic kidney disease E87.70 Fluid overload, unspecified R06.02 Shortness of breath Z68.43 Body mass index (BMI) 50.0-59.9, adult Office Visit 02/21/2019 10:17a [facility] Jessica Luther R78.81 Bacteremia Infectious Diseases Mery Bowen I89.0 Lymphedema, not elsewhere classified Office Visit 02/21/2019 [facility] Jessica Valdez, A40.8 Other 1:14p Assoc,pc PIGGYBACK CLERK streptococcal Hospitalists sepsis K72.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, unspecified without coma R18.8 Other ascites D63.1 Anemia in chronic kidney disease N18.9 Chronic kidney disease, unspecified 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 E78.5 Hyperlipidemia, unspecified Office Visit 02/20/2019 10:16a [facility] Jessica Luther R78.81 Bacteremia Infectious Diseases Mery Bowen I89.0 Lymphedema, not elsewhere classified Office Visit 02/20/2019 [facility] A49.1 Streptococcal 1:13p Assoc,theron Olivera MD infection, Hospitalists unspecified site D64.9 Anemia, unspecified I86.4 Gastric varices D69.6 Thrombocytopenia, unspecified E11.9 Type 2 diabetes mellitus without complications G89.4 Chronic pain syndrome Office Visit 02/19/2019 [facility] A49.1 Streptococcal 1:13p Assoc,theron Olivera MD infection, Hospitalists unspecified site N17.9 Acute kidney failure, unspecified D64.9 Anemia, unspecified I86.4 Gastric varices D69.6 Thrombocytopenia, unspecified E11.9 Type 2 diabetes mellitus without complications G89.4 Chronic pain syndrome Office Visit 02/18/2019 [facility] Janelle A49.1 Streptococcal 1:12p Assoc,pc Senner, DO infection, Hospitalists unspecified site R65.20 Severe sepsis without septic shock D64.9 Anemia, unspecified N17.9 Acute kidney failure, unspecified D69.6 Thrombocytopenia, unspecified E11.9 Type 2 diabetes mellitus without complications G89.4 Chronic pain syndrome R53.1 Weakness Office Visit 02/17/2019 10:14a [facility] Anmol Luther R78.81 Bacteremia Infectious Diseases Mery Bowen I89.0 Lymphedema, not elsewhere classified E11.22 Type 2 diabetes mellitus w diabetic chronic kidney disease N18.9 Chronic kidney disease, unspecified Office Visit 02/17/2019 1:12p [facility] Janelle Devi, R78.81 Bacteremia Assoc, Hospitalists DO R65.20 Severe sepsis without septic shock N17.9 Acute kidney failure, unspecified D64.9 Anemia, unspecified D69.6 Thrombocytopenia, unspecified R53.1 Weakness G89.4 Chronic pain syndrome Office Visit 02/16/2019 [facility] Emily R50.9 Fever, 1:11p Assoc,pc Cleopatra, PIGGYBACK CLERK unspecified Hospitalists R53.1 Weakness N17.9 Acute kidney failure, unspecified D64.9 Anemia, unspecified Office Visit 01/03/2019 7:00a [facility] Rizwan Flores, R47.01 Aphasia Q21.1 Atrial septal defect E78.5 Hyperlipidemia, unspecified E66.9 Obesity, unspecified Office Visit 01/03/2019 11:01a [facility] Poppy Heather, G45.9 Transient Assoc,pc PIGGYBACK CLERK cerebral ischemic Hospitalists attack, unspecified N17.9 Acute kidney failure, unspecified 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 N18.3 Chronic kidney disease, stage 3 (moderate) Office Visit 01/01/2019 7:00a [facility] Rizwan Flores, R47.01 Aphasia R41.82 Altered mental status, unspecified Office Visit 01/01/2019 [facility] Jessica Valdez, G45.9 Transient 11:01a Assoc,pc PIGGYBACK CLERK cerebral ischemic Hospitalists attack, unspecified D69.6 Thrombocytopenia, [...] pain syndrome Cindy Husain MD 04/13/2019 Z79.4 detention (current) use of insulin Cindy Husain MD 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.4 detention (current) use of insulin Katey Lopez MD [...] failure, unspecified without coma Rosaline Stocking , SENIOR MARKET INTELLIGENCE CONSULTANT 04/06/2019 E72.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, Rosaline Stocking, SENIOR MARKET INTELLIGENCE CONSULTANT unspecified 04/06/2019 K75.81 Nonalcoholic steatohepatitis ([place]) Rosaline Stocking, SENIOR MARKET INTELLIGENCE CONSULTANT 04/06/2019 I10 Essential (primary) hypertension Rosaline Stocking, SENIOR MARKET INTELLIGENCE CONSULTANT 04/05/2019 N17.9 Acute kidney failure, unspecified Meche An MD 04/05/2019 K72.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, unspecified without coma Rosaline Stocking , SENIOR MARKET INTELLIGENCE CONSULTANT 04/05/2019 N18.4 Chronic kidney disease, stage 4 (severe) Meche An MD 04/05/2019 D63.8 Anemia in other chronic diseases Rosaline Stocking, SENIOR MARKET INTELLIGENCE CONSULTANT classified elsewhere 04/05/2019 E72.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, Rosaline Stocking, SENIOR MARKET INTELLIGENCE CONSULTANT unspecified 04/05/2019 E87.70 Fluid overload, unspecified Rosaline Stocking, SENIOR MARKET INTELLIGENCE CONSULTANT 04/04/2019 D64.9 Anemia, unspecified CAMILO Cabezas 04/04/2019 [...] Anemia in chronic kidney disease Araceli Shortle, PIGGYBACK CLERK 04/02/2019 N17.9 Acute kidney failure, unspecified Araceli Shortle, PIGGYBACK CLERK 04/02/2019 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 chronic kidney disease with Araceli Shortle, PIGGYBACK CLERK stage 1 through stage 4 chronic kidney disease, or unspecified chronic kidney disease 04/02/2019 N18.9 Chronic kidney disease, unspecified Araceli Shortle, PIGGYBACK CLERK 03/27/2019 N18.4 Chronic kidney disease, stage 4 [...] Senner, DO 02/16/2019 R50.9 Fever, unspecified Emily Sterling, PIGGYBACK CLERK 02/16/2019 R53.1 Weakness Emily Sterling, PIGGYBACK CLERK 02/16/2019 N17.9 Acute kidney failure, unspecified Emily Sterling, PIGGYBACK CLERK 02/16/2019 D64.9 Anemia, unspecified Emily Cleopatra, PIGGYBACK CLERK 01/03/2019 R47.01 Aphasia Rizwan Flores MD 01/03/2019 Q21.1 Atrial septal defect Rizwan Flores MD 01/03/2019 G45.9 Transient cerebral ischemic attack, Poppy Heather, PIGGYBACK CLERK unspecified 01/03/2019 E78.5 Hyperlipidemia, unspecified Rizwan Flores MD 01/03/2019 E66.9 Obesity, unspecified Rizwan Flores MD 01/03/2019 N17.9 Acute kidney failure, unspecified Poppy Heather, PIGGYBACK CLERK 01/03/2019 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 chronic kidney disease with Poppy Heather, PIGGYBACK CLERK stage 1 through stage 4 chronic kidney disease, or unspecified chronic kidney disease 01/03/2019 N18.3 Chronic kidney disease, stage 3 Poppy Heather, PIGGYBACK CLERK (moderate) 01/02/2019 I63.9 Cerebral infarction, unspecified Femi Aguirre M.D. 01/02/2019 G45.9 Transient cerebral ischemic attack, Poppy Heather, PIGGYBACK CLERK unspecified 01/02/2019 N18.3 Chronic kidney disease, stage 3 Poppy Heather, PIGGYBACK CLERK (moderate) 01/02/2019 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 chronic kidney disease with Poppy Heather, PIGGYBACK CLERK stage 1 through stage 4 chronic kidney [...]
--- OUTSIDE RECORDS SUMMARY | 2019-05-13 04:35 | XMS REPORT ---
:1945 Author Organization [facility] Care Team Providers Name Role Phone Unavailable Unavailable Unavailable Problems Condition Condition Condition Status Onset Resolution Last Treating Comments Name Details Category Date Date Treatment Clinician Date Chronic Chronic Diagnosis Active 0 Caitlin kidney kidney 310 Carrier RN disease, disease, stage 4 stage 4 (severe) (severe) Pain frequent Pain Mgmt Active 2020-0 Dione pain 05-07 [place] 08:50: [id number] Cardio edema Cardiovasc Active 2020-0 Dione ular 05-07 [place] 08:50: [id number] 00 Respiratory dyspnea Respirator Active 2020-0 Dione present y 05-07 [place] 08:50: [id number] 00 Endo/Satya glucose Endo/Satya Active 2020-0 [facility] testing 05-07 [place] dependence 08:50: [id number] 00 Endo/Satya diabetic Endo/Satya Active 2020-0 Dione foot care 05-07 [place] 08:50: [id number] 00 Nutrition nutritional Nutrition Active 2020-0 Dione restriction 05-07 [place] s 08:50: [id number] 00 Elimination diarrhea Eliminatio Active 2020-0 [facility] n 05-07 [place] 08:50: [id number] 00 Activity ADL Activity Active 2020-0 Dione assistance 05-07 [place] required 08:50: [id number] 00 Activity self-care Activity Active 2020-0 Dione deficit 05-07 [place] 08:50: [id number] 00 Safety structural Safety Active 2020-0 Dione barriers 05-07 [place] present 08:50: [id number] 00 Safety fall risk Safety Active 2020-0 Dione factor 05-07 [place] present 08:50: [id number] 00 Safety risk for Safety Active 2020-0 Dione hospitaliza 05-07 [place] tion 08:50: [id number] 00 Safety can be left Safety Active 2020-0 Dione alone for 05-07 [place] only short 08:50: [id number] periods 00 Medication oral med Meds Active 2019-0 Dione assistance 05-07 [place] required 08:50: [id number] 00 Medication injectable Meds Active 2019-0 Dione med 05-07 [place] assistance 08:50: [id number] required 00 Medication knowledge/s Meds Active 0 Dione kill 05-07 [place] deficit: pt 08:50: [id number] 00 Musculoskel transfer Musculoske Active 2019-0 Dione etal assistance letal 05-07 [place] required 08:50: [id number] 00 Bed transfer PT/OT: Bed Active 2019-0 Peter Mobility/Tr deficit: Mobility/T 3-12 autumn Martinez sit/stand ransfer 13:00: PT 00 [id number] Bed transfer PT/OT: Bed Active 2020-0 Peter Mobility/Tr deficit: Mobility/T 3-12 autumn Martinez standing ransfer 13:00: PT pivot 00 [id number] Bed transfer PT/OT: Bed Active 2020-0 Peter Mobility/Tr deficit: Mobility/T 3-12 autumn Martinez toilet/comm ransfer 13:00: PT ode 00 [id number] Bed transfer PT/OT: Bed Active 2020-0 Peter Mobility/Tr deficit: Mobility/T 3-12 autumn Martinez shower/tub ransfer 13:00: PT 00 [id number] Bed knowledge/s PT/OT: Bed Active 2020-0 Peter Mobility/Tr kill Mobility/T 3-12 autumn Martinez deficit: pt ransfer 13:00: PT 00 [id number] Gait/Locomo knowledge/s PT/OT: Active 2020-0 Peter tion kill Gait/Locom 3-12 Juan, problems deficit: pt otion 13:00: PT 00 [id number] Gait/Locomo gait PT/OT: Active 2020-0 Peter tion deficit Gait/Locom 3-12 Juan, problems otion 13:00: PT 00 [id number] Allergies, Adverse Reactions, Alerts Allergy Allergy Status [...] TORRES million million unit powder unit powder [place] 3-6-9 [place] 3-6-9 Yes Midura Unknown Unknown 1,200 mg [...]
--- OUTSIDE RECORDS SUMMARY | 2019-05-13 04:35 | XMS REPORT ---
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, disease, stage 4 stage 4 (severe) (severe) Pain frequent Pain Mgmt Active 2020-0 Dione pain 05-07 [place] 08:50: [id number] Cardio edema Cardiovasc Active 2020-0 Dione ular 05-07 [place] 08:50: [id number] 00 Respiratory dyspnea Respirator Active 2020-0 Dione present y 05-07 [place] 08:50: [id number] 00 Endo/Satya glucose Endo/Satya Active 2020-0 [facility] testing 05-07 [place] dependence 08:50: [id number] 00 Endo/Satya diabetic Endo/Satya Active 2020-0 Dione foot care 05-07 [place] 08:50: [id number] 00 Nutrition nutritional Nutrition Active 2020-0 Dione restriction 05-07 [place] s 08:50: [id number] 00 Elimination diarrhea Eliminatio Active 2020-0 [facility] n 05-07 [place] 08:50: [id number] 00 Activity ADL Activity Active 2020-0 Dione assistance 05-07 [place] required 08:50: [id number] 00 Activity self-care Activity Active 2020-0 Dione deficit 05-07 [place] 08:50: [id number] 00 Safety structural Safety Active 2020-0 Dione barriers 05-07 [place] present 08:50: [id number] 00 Safety fall risk Safety Active 2020-0 Dione factor 05-07 [place] present 08:50: [id number] 00 Safety risk for Safety Active 2020-0 Dione hospitaliza 05-07 [place] tion 08:50: [id number] 00 Safety can be left Safety Active 2020-0 Dione alone for 05-07 [place] only short 08:50: [id number] periods 00 Medication oral med Meds Active 2019-0 Dione assistance 05-07 [place] required 08:50: [id number] 00 Medication injectable Meds Active 2019-0 Dione med 05-07 [place] assistance 08:50: [id number] required 00 Medication knowledge/s Meds Active 2019-0 Dione kill 05-07 [place] deficit: pt 08:50: [id number] 00 Musculoskel transfer Musculoske Active 2019-0 Dione etal assistance letal 05-07 [place] required 08:50: [id number] 00 Allergies, Adverse Reactions, Alerts Allergy Allergy Status Severity Reaction(s) Onset Inactive Treating Comments Name Type Date Date Clinician Unknown None Active Unknown None Unknown No Known Allergies For This Patient Medications Ordered Filled Start Stop Current Ordering Indication Dosage Frequency Signature Comments Components Medication Medication Date Date Medication? Clinician (SIG) Name Name allopurinol allopurinol 2019-0 Yes Midura Unknown Unknown 300 mg 300 mg - Rafat TORRES tablet tablet nadolol 20 nadolol 20 2019-0 Yes Midura Unknown Unknown mg tablet mg tablet -12 Rafat TORRES ferrous ferrous 2019-0 Yes Midura Unknown Unknown gluconate gluconate 05-07 Rafat TORRES 324 mg (38 324 mg (38 mg iron) mg iron) tablet tablet lactulose lactulose 2019-0 Yes Midura Unknown Unknown 10 gram/15 10 gram/15 3- Rafat TORRES mL (15 mL) mL (15 mL) oral oral solution solution Lantus Lantus 2019-0 Yes Midura Unknown Unknown Solostar Solostar - Rafat TORRES U-100 U-100 Insulin 100 Insulin 100 unit/mL (3 unit/mL (3 mL) mL) subcutaneou subcutaneou s pen s pen Metamucil Metamucil 2019-0 Yes Midura Unknown Unknown Fiber Thin Fiber Thin 3- Rafat TORRES 2 gram oral 2 gram oral wafer wafer nystatin nystatin 2019-0 Yes Midura Unknown Unknown (bulk) 50 (bulk) 50 3- Rafat TORRES million million unit powder unit powder [place] 3-6-9 [place] 3-6-9 2019-0 Yes Midura Unknown Unknown 1,200 mg 1,200 mg 3- MD,Rafat capsule capsule pantoprazol pantoprazol Yes Midura Unknown Unknown e 40 mg e 40 mg 3-12 MD,Rafat tablet,christian tablet,christian yed release yed release spironolact spironolact Yes Midura Unknown Unknown one 50 mg one 50 mg 3-12 MD,Rafat tablet tablet torsemide torsemide Yes Midura Unknown Unknown 20 mg 20 mg 3-12 MD,Rafat tablet tablet Vital Signs Vital Name Observation Time Observation Value Comments SYSTOLIC mm[Hg] 2019-05-08 18:10:50 148 mm[Hg] mm[Hg] Method: Sit SYSTOLIC mm[Hg] 2019-05-08 18:10:50 152 mm[Hg] mm[Hg] Method: Stand DIASTOLIC mm[Hg] 2019-05-08 18:10:50 86 mm[Hg] mm[Hg] Method: Sit DIASTOLIC mm[Hg] 2019-05-08 18:10:50 82 mm[Hg] mm[Hg] Method: Stand PULSE 2019-05-08 18:10:50 68 /min /min RESP RATE 2019-05-08 18:10:50 16 /min /min TEMP 2019-05-08 18:10:50 98.0 [degF] Procedures This patient has no known procedures. Results This patient has no known results.
--- OUTSIDE RECORDS SUMMARY | 2019-05-13 04:35 | XMS REPORT ---
:1945 Author Organization [facility] Care Team Providers Name Role Phone Unavailable Unavailable Unavailable Problems This patient has no known problems. Allergies, Adverse Reactions, Alerts Allergy Allergy Status [...]
--- OUTSIDE RECORDS SUMMARY | 2019-05-13 04:35 | XMS REPORT | Continuity of Care Document ---
:1945 External Reference #:[id number] Author Name Lavern Dang MD (transmitted by agent of provider Danae Alford) Address [address] [place] [address] Care Team Providers Name Role Phone Rafat Senior MD - Family Medicine Care Team Information Foreman Or Supervisor And Operator [phone] Problems Description No Information Available Social History [...] apply twice a day Unknown until resolved. [id number] Cream Allopurinol 1 by mouth every Unknown [...] Unknown 81mg day Tablets DR JERNIGAN Unknown Melber-3 Fish Oil take 1 tab by mouth [...] Result H/L Range Note Basic Metabolic 04/29/2019 [facility] Sodium 138 mmol/L Normal 135-145 1 Panel [address] [place] [address] [phone] Potassium 3.6 mmol/L Normal 3.5-5.0 Chloride 99 mmol/L Low 101-111 Co2 Carbon Dioxide 32 mmol/L Normal 22-32 Anion Gap 7 mmol/L Normal 2-11 Glucose 193 mg/dL High 70-100 Blood Urea Nitrogen 33 mg/dL High 6-24 Creatinine 1.86 mg/dL High 0.51-0.95 BUN/Creatinine Ratio 17.7 Normal 8-20 Calcium 8.3 mg/dL Low 8.6-10.3 Egfr Non- 26.6 >60 Egfr 32.1 >60 2 Comp Metabolic 04/23/2019 [facility] Sodium 139 mmol/L Normal 135-145 Panel [address] [place] [address] [phone] Potassium 3.7 mmol/L Normal 3.5-5.0 Chloride 99 [...] Egfr 28.7 >60 3 Laboratory test 04/23/2019 [facility] Ammonia 86 mcmol/L High 16-[address] [place] [address] [phone] Laboratory test 04/22/2019 [facility] Pathologist (SEE NOTE) 4, [address] [place] [address] [phone] Manual 04/22/2019 [facility] Neutrophil % 58.0 % Differential [address] [place] [address] [phone] Lymphocytes % 25.0 % Monocytes % 10.0 % Eosinophils % 6.0 % Variant Lymph % 1.0 % Normal 0-6 Hypochromasia 1+ Anisocytosis 2+ Target Cells 1+ Stomatocytes 1+ CBC Auto 04/22/2019 [facility] White Blood 5.7 10^3/uL Normal 3.5-10.[address] [place] [address] [phone] Red Blood Count 2.47 10^6/uL Low 3.70-4.87 [...] Blood Cells % 0.0 Laboratory test 04/22/2019 [facility] Prealbumin 5 mg/dL Low 18-38 6 finding [address] [place] [address] [phone] Basic Metabolic 04/22/2019 [facility] Sodium 139 mmol/L Normal 135-145 Panel [address] [place] [address] [phone] Potassium 4.2 mmol/L Normal 3.5-5.0 Chloride 98 mmol/L Low 101-111 Co2 Carbon Dioxide 33 mmol/L High 22-32 Anion Gap 8 mmol/L Normal 2-11 Glucose 176 mg/dL High 70-100 Blood Urea Nitrogen 42 mg/dL High 6-24 Creatinine 2.08 mg/dL High 0.51-0.95 BUN/Creatinine Ratio 20.2 High 8-20 Calcium 8.9 mg/dL Normal 8.6-10.3 Egfr Non- 23.3 >60 Egfr 28.2 >60 7 Laboratory test 04/22/2019 [facility] Ammonia TNP mcmol/L 16- 53 8, 9 finding [address] [place] [address] [phone] Comp Metabolic 04/22/2019 [facility] Sodium 137 mmol/L Normal 135-145 Panel [address] [place] [address] [phone] Potassium 3.9 mmol/L Normal 3.5-5.0 Chloride 97 [...] 28.9 >60 10 Type & Screen 04/02/2019 [facility] Patient Blood Type A Positive [address] [place], [place] [id number] [phone] Antibody Screen NEGATIVE Laboratory test 04/02/2019 [facility] Packed Cells SEE RESULTS [address] [place] <[place] [address] NOTE> [phone] Urine Culture And 03/27/2019 [facility] Urine Culture SEE RESULT [address] [place], [place] [id number] [phone] Laboratory test 03/27/2019 [facility] Pathologist (SEE NOTE) [address] [place], [place] [id number] [phone] Cell Morphology 03/27/2019 [facility] Macrocytosis 3+ [address] [place] [address] [phone] Anisocytosis 2+ Target Cells 1+ Laboratory test 03/27/2019 [facility] Ferritin 117.2 ng/mL Normal 11-[address] [place], [place] [id number] [phone] B-Type Natriuretic Peptide BNP 839 pg/mL High <=100 Iron & Iron Binding 03/27/2019 [facility] Iron 105 g/dL Normal 50-[address] [place], [place] [address] [phone] Unsaturated Iron Binding < 209 g/dL Total Iron Binding Capacity 224 g/dL Low 250-450 Transferrin 160 mg/dL Low 203-362 % Iron Saturation 47 % Normal 15-55 Laboratory test 03/27/2019 [facility] Hemoglobin A1c 5.1 % Normal 4.0-5.[address] (Glyco HGB) [place], [place] [id number] [phone] Albumin 2.0 g/dL Low 3.2-5.2 Urinalysis Profile 03/27/2019 [facility] Urine Color Yellow [address] [place], [place] [address] [phone] Urine Appearance Clear Urine Specific [place] 1.012 Normal 1.010-1.030 Urine pH 5.0 Normal [...] Cell Present Abnormal Absent Basic Metabolic 03/27/2019 [facility] Sodium 138 mmol/L Normal 135-[address] [place] [address] [phone] Co2 Carbon Dioxide 17 mmol/L Low 22-32 Glucose 110 mg/dL High 70-100 Blood Urea Nitrogen 52 mg/dL High 6-24 Creatinine 5.41 mg/dL High 0.51-0.95 BUN/Creatinine Ratio 9.6 Normal 8-20 Calcium 8.3 mg/dL Low 8.6-10.3 Egfr Non- 7.7 >60 Egfr 9.4 >60 16 Potassium 5.5 mmol/L High 3.5-5.0 Chloride 113 mmol/L High 101-111 Anion Gap 8 mmol/L Normal 2-11 CBC Auto 03/27/2019 [facility] White Blood 6.7 10^3/uL Normal 3.5-10.[address] [place] [address] [phone] Red Blood Count 2.17 10^6/uL Low 3.70-4.87 [...] Blood Cells % 0.2 Neph Routine 03/27/2019 [facility] Total Protein Random 43 mg/ dL [address] [place] [address] [phone] Creatinine Random Urine 117.28 mg/dL Laboratory 02/16/2019 [facility] Lactic Acid 5.3 Critical 0.5- 2.0 18 test finding [address] mmol/[place] [address] [phone] Influenza A & 02/16/2019 [facility] Flu AB (SEE 19, B Request [address] Disclaimer NOTE) 20 [place] [address] [phone] Influenza A Molecular NEGATIVE Negative Influenza B Molecular NEGATIVE Negative 21 1 [id number] 2 Because ethnic data is not always [...] 5 Kidney failure <15 (or dialysis) 4 [id number] 5 Macrocytic anemia. Mild thrombocytopenia. No evidence of hemolytic process. Reviewed by Mónica Snow MD 6 [id number] 7 Because ethnic data is not always [...] 5 Kidney failure <15 (or dialysis) 8 [id number] 9 Unable to report test result due [...] ISSUES PER PT 12 SEE RESULTS BELOW [id number] AP PC TRANSFUSED 04/02/19 2324 [id number] AP PC TRANSFUSED 04/03/19 0936 [id number] AP PC TRANSFUSED 04/04/19 0628 [id number] AP PC TRANSFUSED 04/04/19 0935 13 SEE RESULT BELOW Name: BONNIE AGUILERA : [address]: Marlon Beard MD Acct: [id number] Unit: [id number] AGE: 73 Location: LAB Re03/27/19 SEX: F Status: REG REF SPEC: [id number] [place]: 03/27/19-[address] [facility] [address]: Marlon Beard MD REQ: [id number] RECD: 03/27/19-204 STATUS: COMP _ SOURCE: URINE SPDESC: ORDERED: Urine Culture Procedure Result Reported Site Urine Culture Final 03/28/19- 1406 ML No Growth (<1,000 CFU/mL) * ML - Main Lab . END OF REPORT DEPARTMENT OF PATHOLOGY, [address] [place] [address] Nic Weber M.D. Director [facility] # [id number] 14 Moderate macrocytic anemia with thrombocytopenia noted. Clinical correlation suggested. Additional studies is warranted. Reviewed by Dr. Weber 15 Therapeutic target for the treatment of diabetes mellitus patients is <7% HBA1C, and in selective patients <6.0%. Please refer to [place] [employer] diabetic care guidelines for further [...] 02/19/19. 18 Critical Result LACT:5.3 Called to [id number] at: 22:01:07 by:[id number] Read back by:[id number] JUSTINO Severe Sepsis and Septic Shock Management Bundle Measure requires all lactic acids initially measuring >2.0 mmol/L be repeated. Critical Result LACT:5.3 Called to [id number] at: 22:01:07 by:[id number] Read back by:[id number] [facility] Severe Sepsis and Septic Shock Management Bundle Measure requires all lactic acids initially measuring >2.0 mmol/L be repeated. 19 NASAL 20 Suboptimal collection technique may reduce sensitivity of test. Refer to the [facility] Test Catalog for collection information: [email or web address] As with all diagnostic procedures, the laboratory results obtained should be used in conjunction with other clinical information available to the physician, including confirmation by another method, as applicable. 21 Hydrogenation Operator: [id number] Procedures Date Code Description Status 02/18/2019 22469 Moderate Sedation Services; Same Phys Intl 15 Mins; PT >= Completed 5 Years 02/18/2019 77644 Color Flow Doppler/Interp & Reprt Completed 02/18/2019 84536 Pulse Wave/Continuous-Interp.RPT Completed 02/18/2019 51735 Echocardiography, Transesophageal, Real Time W/Image 2D Completed W/W/O M-M 01/02/2019 11961 ECHO Transthorasic Realtime 2D W Doppler & Color Flow Hosp Completed Medical Devices Description No Information Available Encounters Type Date Location Provider Dx Diagnosis Office Visit 04/21/2019 [place] Celina Dang MD R54 Age-related physical 9:30a debility N18.4 Chronic kidney disease, stage 4 (severe) D63.1 Anemia in chronic kidney disease K74.60 Unspecified cirrhosis of liver K29.61 Other gastritis with bleeding R18.8 Other ascites K72.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, unspecified without coma E11.22 Type 2 diabetes mellitus w diabetic chronic kidney disease Z68.43 Body mass index (BMI) 50.0-59.9, adult Office Visit 04/18/2019 [facility] K72.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, 3:26p Assoc,pc MD Kalia unspecified Hospitalists without coma N17.9 Acute kidney failure, unspecified I50.9 Heart failure, unspecified D64.9 Anemia, unspecified E11.9 Type 2 diabetes mellitus without complications G89.29 Other chronic pain Office Visit 04/18/2019 10:16a [facility] Nephrology Meche An, N17.9 Acute kidney MD failure, unspecified N18.4 Chronic kidney disease, stage 4 (severe) Office Visit 04/17/2019 [facility] K72.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, 3:26p theron Escalante MD unspecified Hospitalists without coma N17.9 Acute kidney failure, unspecified D64.9 Anemia, unspecified G89.4 Chronic pain syndrome Office Visit 04/16/2019 3:25p [facility] K72.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, Assoctheron MD unspecified Hospitalists without coma D64.9 Anemia, [...] kidney disease, unspecified Office Visit 04/15/2019 3:25p [facility] Katey Lopez, K72.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, Asstheron méndez MD unspecified Hospitalists without coma N17.9 Acute kidney failure, unspecified D64.9 Anemia, unspecified G89.4 Chronic pain syndrome Office Visit 04/15/2019 10:15a [facility] Nephrology Meche An, N17.9 Acute kidney failure, unspecified Office Visit 04/14/2019 3:25p [facility] K72.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, Asstheron méndez MD unspecified Hospitalists without coma N17.9 Acute kidney failure, unspecified D64.9 Anemia, unspecified K27.9 Peptic ulc, site unsp, unsp as ac or chr, w/o hemor or perf Office Visit 04/14/2019 [facility] Nephrology Meche An, N17.9 Acute kidney 10:15a failure, unspecified Office Visit 04/13/2019 [facility] Nephrology Marlon Gutierrez N17.9 Acute kidney 1:52p MD Kisha failure, unspecified Office Visit 04/13/2019 [facility] Cindyfidel Husain, K72.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, 3:24p theron Escalante MD unspecified Hospitalists without coma N17.9 Acute kidney failure, unspecified D64.9 Anemia, unspecified K27.9 Peptic ulc, site unsp, unsp as ac or chr, w/o hemor or perf G89.4 Chronic pain syndrome Z79.4 care home (current) use of insulin E11.9 Type 2 diabetes mellitus without complications Office Visit 04/12/2019 [facility] Nephrology Marlon Gutierrez N17.9 Acute kidney 1:52p MD Kisha failure, unspecified Office Visit 04/11/2019 [facility] Nephrology Marlon Gutierrez N17.9 Acute kidney 1:52p MD Kisha failure, unspecified Office Visit 04/11/2019 [facility] K72.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, 3:23p Assoc,pc MD Kalia unspecified Hospitalists without coma N17.9 Acute kidney failure, unspecified D64.9 Anemia, unspecified K27.9 Peptic ulc, site unsp, unsp as ac or chr, w/o hemor or perf G89.4 Chronic pain syndrome 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, Assoc,pc Avila Finnegan.Brandy. 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 I50.30 Unspecified diastolic (congestive) heart failure E11.9 Type 2 diabetes mellitus without complications Office Visit 04/10/2019 [facility] Nephrology Marlon Gutierrez N17.9 Acute kidney 9:09a MD Kisha failure, unspecified Office Visit 04/09/2019 [facility] Katey Lopez MD K72.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, 3:23p Assoc,pc unspecified Hospitalists without coma D64.9 Anemia, unspecified N17.9 Acute kidney failure, unspecified G89.4 Chronic pain syndrome K27.9 Peptic ulc, site unsp, unsp as ac or chr, w/o hemor or perf 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 I50.30 Unspecified diastolic (congestive) heart failure 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 E11.22 Type 2 diabetes mellitus w diabetic chronic kidney disease N18.9 Chronic kidney disease, unspecified Office Visit 04/08/2019 3:22p [facility] Katey Lopez, K72.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, Assoc,pc [...] kidney disease, unspecified Office Visit 04/08/2019 10:39a [facility] Nephrology Marlon Gutierrez N17.9 Acute kidney MD Kisha failure, unspecified Office Visit 04/07/2019 9:20a [facility] Nephrology Marlon Gutierrez N17.9 Acute kidney MD Kisha failure, unspecified Office Visit 04/07/2019 1:48p Intensivists Diana Vega MD K72.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, unspecified without coma E72.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, unspecified K75.81 Nonalcoholic steatohepatitis ([place]) I10 Essential (primary) hypertension Office Visit 04/06/2019 1:47p Intensivists Rosaline K72.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 , Stocking, CHILD CARE AIDE unspecified without coma E72.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, unspecified K75.81 Nonalcoholic steatohepatitis ([place]) I10 Essential (primary) hypertension Office Visit 04/05/2019 1:47p Intensivists Rosaline K72.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 , Stocking, CHILD CARE AIDE unspecified without coma D63.8 Anemia in other chronic diseases classified elsewhere E72.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, unspecified E87.70 Fluid overload, unspecified Office Visit 04/05/2019 10:13a [facility] Nephrology Meche An, N17.9 Acute kidney MD failure, unspecified N18.4 Chronic kidney disease, stage 4 (severe) Office Visit 04/04/2019 1:47p [facility] Lobo D64.9 Anemia, Assoc,pc CAMILO Ceballos unspecified Hospitalists N17.9 Acute kidney failure, unspecified K72.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, unspecified without coma K75.81 Nonalcoholic steatohepatitis ([place]) Office Visit 04/04/2019 2:53p [facility] Nephrology Meche An, N17.9 Acute kidney failure, unspecified N18.4 Chronic kidney disease, stage 4 (severe) E87.70 Fluid overload, unspecified D63.1 Anemia in chronic kidney disease Office Visit 04/03/2019 1:46p [facility] Lobo D63.1 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, CAMILO Ceballos chronic kidney Hospitalists disease N17.9 Acute kidney failure, unspecified E11.22 Type 2 diabetes mellitus w diabetic chronic kidney disease N18.9 Chronic kidney disease, unspecified Office Visit 04/03/2019 2:35p [facility] Nephrology Marlon Gutierrez N17.9 Acute kidney MD Kisha failure, unspecified D63.1 Anemia in chronic kidney disease Office Visit 04/02/2019 3:11p [facility] Araceli D63.1 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,theron Gage NP chronic kidney Hospitalists disease N17.9 Acute kidney failure, unspecified 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 chronic kidney 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/unsp [facility] kdny N18.9 Chronic kidney disease, unspecified Office Visit 03/27/2019 2:00p [facility] Nephrology Marlon Gutierrez N18.4 Chronic kidney MD Kisha disease, stage 4 (severe) K74.60 Unspecified cirrhosis of liver E11.22 Type 2 diabetes mellitus w diabetic chronic kidney disease E87.70 Fluid overload, unspecified R06.02 Shortness of breath Z68.43 Body mass index (BMI) 50.0-59.9, adult Office Visit 02/21/2019 10:17a [facility] Luther R78.81 Bacteremia Infectious Diseases Mery Bowen I89.0 Lymphedema, not elsewhere classified Office Visit 02/21/2019 [facility] Jessica Valdez, A40.8 Other 1:14p Assoc,pc LACQUER SPRAYER streptococcal Hospitalists sepsis K72.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, unspecified without coma R18.8 Other ascites D63.1 Anemia in chronic kidney disease N18.9 Chronic kidney disease, unspecified 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 E78.5 Hyperlipidemia, unspecified Office Visit 02/20/2019 [facility] A49.1 Streptococcal 1:13p Assoc,theron Olivera MD infection, Hospitalists unspecified site D64.9 Anemia, unspecified I86.4 Gastric varices D69.6 Thrombocytopenia, unspecified E11.9 Type 2 diabetes mellitus without complications G89.4 Chronic pain syndrome Office Visit 02/20/2019 10:16a [facility] Jessica Luther R78.81 Bacteremia Infectious Diseases Mery Bowen I89.0 Lymphedema, not elsewhere classified Office Visit 02/19/2019 [facility] A49.1 Streptococcal 1:13p Assoc,theron Olivera MD infection, Hospitalists unspecified site N17.9 Acute kidney failure, unspecified D64.9 Anemia, unspecified I86.4 Gastric varices D69.6 Thrombocytopenia, unspecified E11.9 Type 2 diabetes mellitus without complications G89.4 Chronic pain syndrome Office Visit 02/18/2019 [facility] A49.1 Streptococcal 1:12p Assoc,theron Devi DO infection, Hospitalists unspecified site R65.20 Severe sepsis without septic shock D64.9 Anemia, unspecified N17.9 Acute kidney failure, unspecified D69.6 Thrombocytopenia, unspecified E11.9 Type 2 diabetes mellitus without complications G89.4 Chronic pain syndrome R53.1 Weakness Office Visit 02/17/2019 10:14a [facility] Jessica Luther R78.81 Bacteremia Infectious Diseases Mery Bowen I89.0 Lymphedema, not elsewhere classified E11.22 Type 2 diabetes mellitus w diabetic chronic kidney disease N18.9 Chronic kidney disease, unspecified Office Visit 02/17/2019 1:12p [facility] Janelle Devi R78.81 Bacteremia Assoc, Hospitalists DO R65.20 Severe sepsis without septic shock N17.9 Acute kidney failure, unspecified D64.9 Anemia, unspecified D69.6 Thrombocytopenia, unspecified R53.1 Weakness G89.4 Chronic pain syndrome Office Visit 02/16/2019 [facility] Emily R50.9 Fever, 1:11p Assoc,pc Ages [place], LACQUER SPRAYER unspecified Hospitalists R53.1 Weakness N17.9 Acute kidney failure, unspecified D64.9 Anemia, unspecified Office Visit 01/03/2019 7:00a [facility] Rizwan Flores, R47.01 Aphasia Q21.1 Atrial septal defect E78.5 Hyperlipidemia, unspecified E66.9 Obesity, unspecified Office Visit 01/03/2019 11:01a [facility] Poppy Heather, G45.9 Transient Assoc,pc LACQUER SPRAYER cerebral ischemic Hospitalists attack, unspecified N17.9 Acute kidney failure, unspecified 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 N18.3 Chronic kidney disease, stage 3 (moderate) Office Visit 01/01/2019 7:00a [facility] Rizwan Flores, R47.01 Aphasia R41.82 Altered mental status, unspecified Office Visit 01/01/2019 [facility] Jessica FelicianoJayjay, G45.9 Transient 11:01a Assoc,pc LACQUER SPRAYER cerebral ischemic Hospitalists attack, unspecified D69.6 Thrombocytopenia, [...] pain syndrome Cindy Husain MD 04/13/2019 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 Cindy Husain MD 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 Katey Lopez MD [...] failure, unspecified without coma Rosaline Stocking , CHILD CARE AIDE 04/06/2019 E72.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, Rosaline Stocking, CHILD CARE AIDE unspecified 04/06/2019 K75.81 Nonalcoholic steatohepatitis ([place]) Rosaline Stocking, CHILD CARE AIDE 04/06/2019 I10 Essential (primary) hypertension Rosaline Stocking, CHILD CARE AIDE 04/05/2019 N17.9 Acute kidney failure, unspecified Meche An MD 04/05/2019 K72.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, unspecified without coma Rosaline Stocking , CHILD CARE AIDE 04/05/2019 N18.4 Chronic kidney disease, stage 4 (severe) Meche An MD 04/05/2019 D63.8 Anemia in other chronic diseases Rosaline Stocking, CHILD CARE AIDE classified elsewhere 04/05/2019 E72.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, Rosaline Stocking, CHILD CARE AIDE unspecified 04/05/2019 E87.70 Fluid overload, unspecified Rosaline Stocking, CHILD CARE AIDE 04/04/2019 D64.9 Anemia, unspecified CAMILO Cabezas 04/04/2019 [...] Anemia in chronic kidney disease Araceli Shortle, LACQUER SPRAYER 04/02/2019 N17.9 Acute kidney failure, unspecified Araceli Shortle, LACQUER SPRAYER 04/02/2019 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 chronic kidney disease with Araceli Shortle, LACQUER SPRAYER stage 1 through stage 4 chronic kidney disease, or unspecified chronic kidney disease 04/02/2019 N18.9 Chronic kidney disease, unspecified Araceli Shortle, LACQUER SPRAYER 03/27/2019 N18.4 Chronic kidney disease, stage 4 [...] R65.20 Severe sepsis without septic shock Janelle Senluis, DO 02/18/2019 D64.9 Anemia, unspecified Janelle Senner, [...] Senner, DO 02/16/2019 R50.9 Fever, unspecified Emily Ages [place], LACQUER SPRAYER 02/16/2019 R53.1 Weakness Emily Cleopatra, LACQUER SPRAYER 02/16/2019 N17.9 Acute kidney failure, unspecified Emily Cleopatra, LACQUER SPRAYER 02/16/2019 D64.9 Anemia, unspecified Emily Ages [place], LACQUER SPRAYER 01/03/2019 R47.01 Aphasia Rizwan Flores MD 01/03/2019 Q21.1 Atrial septal defect Rizwan Flores MD 01/03/2019 G45.9 Transient cerebral ischemic attack, Poppy Heather, LACQUER SPRAYER unspecified 01/03/2019 E78.5 Hyperlipidemia, unspecified Rizwan Flores MD 01/03/2019 E66.9 Obesity, unspecified Rizwan Flores MD 01/03/2019 N17.9 Acute kidney failure, unspecified Poppy Heather, LACQUER SPRAYER 01/03/2019 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 chronic kidney disease with Poppy Heather, LACQUER SPRAYER stage 1 through stage 4 chronic kidney disease, or unspecified chronic kidney disease 01/03/2019 N18.3 Chronic kidney disease, stage 3 Poppy Heather, LACQUER SPRAYER (moderate) 01/02/2019 I63.9 Cerebral infarction, unspecified Femi Aguirre M.D. 01/02/2019 G45.9 Transient cerebral ischemic attack, Poppy Heather, LACQUER SPRAYER unspecified 01/02/2019 N18.3 Chronic kidney disease, stage 3 Poppy Heather, LACQUER SPRAYER (moderate) 01/02/2019 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 chronic kidney disease with Poppy Heather, LACQUER SPRAYER stage 1 through stage 4 chronic kidney [...]
--- OUTSIDE RECORDS SUMMARY | 2019-05-13 04:35 | XMS REPORT ---
:1945 Author Organization [facility] Care Team Providers Name Role Phone Unavailable Unavailable Unavailable Problems Condition Condition Condition Status Onset Resolution Last Treating Comments Name Details Category Date Date Treatment Clinician Date Chronic Chronic Diagnosis Active 0 Caitlin kidney kidney 310 Carrier RN disease, disease, stage 4 stage 4 (severe) (severe) Pain frequent Pain Mgmt Active 2020-0 [facility] pain 05-07 [facility] 08:50: [id number] Cardio edema Cardiovasc Active 2020-0 [facility] ular 05-07 [facility] 08:50: [id number] 00 Respiratory dyspnea Respirator Active 2020-0 [facility] present y 05-07 [facility] 08:50: [id number] 00 Endo/Satya glucose Endo/Satya Active 2020-0 [facility] testing 05-07 [facility] dependence 08:50: [id number] 00 Endo/Satya diabetic Endo/Satya Active 2020-0 [facility] foot care 05-07 [facility] 08:50: [id number] 00 Nutrition nutritional Nutrition Active 2020-0 [facility] restriction 05-07 [facility] s 08:50: [id number] 00 Elimination diarrhea Eliminatio Active 2020-0 [facility] n 05-07 [facility] 08:50: [id number] 00 Activity ADL Activity Active 2020-0 [facility] assistance 05-07 [facility] required 08:50: [id number] 00 Activity self-care Activity Active 2020-0 [facility] deficit 05-07 [facility] 08:50: [id number] 00 Safety structural Safety Active 2020-0 [facility] barriers 05-07 [facility] present 08:50: [id number] Safety fall risk Safety Active 2020-0 [facility] factor 05-07 [facility] present 08:50: [id number] 00 Safety risk for Safety Active 2020-0 [facility] hospitaliza 05-07 [facility] tion 08:50: [id number] 00 Safety can be left Safety Active 2020-0 [facility] alone for 05-07 [facility] only short 08:50: [id number] 00 Medication oral med Meds Active 2019-0 [facility] assistance 05-07 [facility] required 08:50: [id number] 00 Medication injectable Meds Active 2019-0 [facility] med 05-07 [facility] assistance 08:50: [id number] required 00 Medication knowledge/s Meds Active 0 [facility] kill 05-07 [facility] deficit: pt 08:50: [id number] 00 Musculoskel transfer Musculoske Active 2019-0 [facility] etal assistance letal 05-07 [facility] required 08:50: [id number] 00 Allergies, Adverse Reactions, Alerts Allergy Allergy [...] Medications For This For This Patient Patient Vital Signs Vital Name Observation Time Observation [...]
--- OUTSIDE RECORDS SUMMARY | 2019-05-13 04:35 | XMS REPORT | Continuity of Care Document ---
:1945 External Reference #:[id number] Author Name Isabel Motta MD (transmitted by agent of provider Leatha Schultz) Address [address] [facility] [place] [address] Care Team Providers Name Role Phone Rafat Senior MD - Family Medicine Care Team Information Rn Radiation Problems Description No Information Available Social History [...] apply twice a day Unknown until resolved. [id number]/GM Cream Allopurinol 1 by mouth every Unknown [...] Unknown 81mg day Tablets DR JERNIGAN Unknown [place]-3 Fish Oil take 1 tab by mouth [...] Result H/L Range Note Basic Metabolic 04/29/2019 [facility] Sodium 138 mmol/L Normal 135-145 1 [address] [place] [address] [phone] Potassium 3.6 mmol/L Normal 3.5-5.0 Chloride 99 mmol/L Low 101-111 Co2 Carbon Dioxide 32 mmol/L Normal 22-32 Anion Gap 7 mmol/L Normal 2-11 Glucose 193 mg/dL High 70-100 Blood Urea Nitrogen 33 mg/dL High 6-24 Creatinine 1.86 mg/dL High 0.51-0.95 BUN/Creatinine Ratio 17.7 Normal 8-20 Calcium 8.3 mg/dL Low 8.6-10.3 Egfr Non- 26.6 >60 Egfr 32.1 >60 2 Comp Metabolic 04/23/2019 [facility] Sodium 139 mmol/L Normal 135-145 Panel [address] [place] [address] [phone] Potassium 3.7 mmol/L Normal 3.5-5.0 Chloride 99 [...] Egfr 28.7 >60 3 Laboratory test 04/23/2019 [facility] Ammonia 86 mcmol/L High 16-[address] [place] [address] [phone] Laboratory test 04/22/2019 [facility] Pathologist (SEE NOTE) 4, [address] [place] [address] [phone] Manual 04/22/2019 [facility] Neutrophil % 58.0 % Differential [address] [place] [address] [phone] Lymphocytes % 25.0 % Monocytes % 10.0 % Eosinophils % 6.0 % Variant Lymph % 1.0 % Normal 0-6 Hypochromasia 1+ Anisocytosis 2+ Target Cells 1+ Stomatocytes 1+ CBC Auto 04/22/2019 [facility] White Blood 5.7 10^3/uL Normal 3.5-10.[address] [place] [address] [phone] Red Blood Count 2.47 10^6/uL Low 3.70-4.87 [...] Blood Cells % 0.0 Laboratory test 04/22/2019 [facility] Prealbumin 5 mg/dL Low 18-38 6 finding [address] [place] [address] [phone] Basic Metabolic 04/22/2019 [facility] Sodium 139 mmol/L Normal 135-145 Panel [address] [place] [address] [phone] Potassium 4.2 mmol/L Normal 3.5-5.0 Chloride 98 mmol/L Low 101-111 Co2 Carbon Dioxide 33 mmol/L High 22-32 Anion Gap 8 mmol/L Normal 2-11 Glucose 176 mg/dL High 70-100 Blood Urea Nitrogen 42 mg/dL High 6-24 Creatinine 2.08 mg/dL High 0.51-0.95 BUN/Creatinine Ratio 20.2 High 8-20 Calcium 8.9 mg/dL Normal 8.6-10.3 Egfr Non- 23.3 >60 Egfr 28.2 >60 7 Laboratory test 04/22/2019 [facility] Ammonia TNP mcmol/L 16- 53 8, 9 finding [address] [place] [address] [phone] Comp Metabolic 04/22/2019 [facility] Sodium 137 mmol/L Normal 135-145 Panel [address] [place] [address] [phone] Potassium 3.9 mmol/L Normal 3.5-5.0 Chloride 97 [...] 28.9 >60 10 Type & Screen 04/02/2019 [facility] Patient Blood Type A Positive [address] [place] [address] [phone] Antibody Screen NEGATIVE Laboratory test 04/02/2019 [facility] Packed Cells SEE RESULTS [address]O <[place] [address] NOTE> [phone] Urine Culture And 03/27/2019 [facility] Urine Culture SEE RESULT [address] [place] [address] [phone] Laboratory test 03/27/2019 [facility] Pathologist (SEE NOTE) [address] [place] [address] [phone] Cell Morphology 03/27/2019 [facility] Macrocytosis 3+ [address] [place] [address] [phone] Anisocytosis 2+ Target Cells 1+ Laboratory test 03/27/2019 [facility] Ferritin 117.2 ng/mL Normal 11-[address] [place] [address] [phone] B-Type Natriuretic Peptide BNP 839 pg/mL High <=100 Iron & Iron Binding 03/27/2019 [facility] Iron 105 g/dL Normal 50-[address] [place] [address] [phone] Unsaturated Iron Binding < 209 g/dL Total Iron Binding Capacity 224 g/dL Low 250-450 Transferrin 160 mg/dL Low 203-362 % Iron Saturation 47 % Normal 15-55 Laboratory test 03/27/2019 [facility] Hemoglobin A1c 5.1 % Normal 4.0-5.[address] (Glyco HGB) [place] [address] [phone] Albumin 2.0 g/dL Low 3.2-5.2 Urinalysis Profile 03/27/2019 [facility] Urine Color Yellow [address] [place] [address] [phone] Urine Appearance Clear Urine Specific [place] 1.012 Normal 1.010-1.030 Urine pH 5.0 Normal [...] Cell Present Abnormal Absent Basic Metabolic 03/27/2019 [facility] Sodium 138 mmol/L Normal 135-[address] [place] [address] [phone] Co2 Carbon Dioxide 17 mmol/L Low 22-32 Glucose 110 mg/dL High 70-100 Blood Urea Nitrogen 52 mg/dL High 6-24 Creatinine 5.41 mg/dL High 0.51-0.95 BUN/Creatinine Ratio 9.6 Normal 8-20 Calcium 8.3 mg/dL Low 8.6-10.3 Egfr Non- 7.7 >60 Egfr 9.4 >60 16 Potassium 5.5 mmol/L High 3.5-5.0 Chloride 113 mmol/L High 101-111 Anion Gap 8 mmol/L Normal 2-11 CBC Auto 03/27/2019 [facility] White Blood 6.7 10^3/uL Normal 3.5-10.[address] [place] [address] [phone] Red Blood Count 2.17 10^6/uL Low 3.70-4.87 [...] Blood Cells % 0.2 Neph Routine 03/27/2019 [facility] Total Protein Random 43 mg/ dL [address] [place] [address] [phone] Creatinine Random Urine 117.28 mg/dL Laboratory 02/16/2019 [facility] Lactic Acid 5.3 Critical 0.5- 2.0 18 test finding [address] mmol/[place] [address] [phone] Influenza A & 02/16/2019 [facility] Flu AB (SEE 19, B Request [address] Disclaimer NOTE) 20 [place] [address] [phone] Influenza A Molecular NEGATIVE Negative Influenza B Molecular NEGATIVE Negative 21 1 [id number] 2 Because ethnic data is not always [...] 5 Kidney failure <15 (or dialysis) 4 [id number] 5 Macrocytic anemia. Mild thrombocytopenia. No evidence of hemolytic process. Reviewed by Mónica Snow MD 6 [id number] 7 Because ethnic data is not always [...] 5 Kidney failure <15 (or dialysis) 8 [id number] 9 Unable to report test result due [...] ISSUES PER PT 12 SEE RESULTS BELOW [id number] AP PC TRANSFUSED 04/02/19 2324 [id number] AP PC TRANSFUSED 04/03/19 0936 [id number] AP PC TRANSFUSED 04/04/19 0628 [id number] AP PC TRANSFUSED 04/04/19 0935 13 SEE RESULT BELOW Name: BONNIE AGUILERA : [address]: Marlon Beard MD Acct: [id number] Unit: [id number] AGE: 73 Location: LAB Re03/27/19 SEX: F Status: REG REF SPEC: [id number] CORINA: 03/27/19-[address]: Marlon Beard MD REQ: [id number] RECD: 03/27/19788 STATUS: COMP _ SOURCE: URINE SPDESC: ORDERED: Urine Culture Procedure Result Reported Site Urine Culture Final 03/28/19- 1406 ML No Growth (<1,000 CFU/mL) * ML - Main Lab . END OF REPORT DEPARTMENT OF PATHOLOGY, [address] [place] [address] Nic Weber M.D. Director [facility] # [id number] 14 Moderate macrocytic anemia with thrombocytopenia noted. Clinical correlation suggested. Additional studies is warranted. Reviewed by Dr. Weber 15 Therapeutic target for the treatment of diabetes mellitus patients is <7% HBA1C, and in selective patients <6.0%. Please refer to [place] [employer] Association diabetic care guidelines for further [...] 02/19/19. 18 Critical Result LACT:5.3 Called to [id number] at: 22:01:07 by:[id number] Read back by:[id number] [facility] Severe Sepsis and Septic Shock Management Bundle Measure requires all lactic acids initially measuring >2.0 mmol/L be repeated. Critical Result LACT:5.3 Called to [id number] at: 22:01:07 by:[id number] Read back by:[id number] [facility] Severe Sepsis and Septic Shock Management Bundle Measure requires all lactic acids initially measuring >2.0 mmol/L be repeated. 19 NASAL 20 Suboptimal collection technique may reduce sensitivity of test. Refer to the [facility] Test Catalog for collection information: [email or web address] As with all diagnostic procedures, the laboratory results obtained should be used in conjunction with other clinical information available to the physician, including confirmation by another method, as applicable. 21 Customer Equipment Engineer: [id number] Procedures Date Code Description Status 02/18/2019 70356 Moderate Sedation Services; Same Phys Intl 15 Mins; PT >= Completed 5 Years 02/18/2019 92074 Color Flow Doppler/Interp & Reprt Completed 02/18/2019 58550 Pulse Wave/Continuous-Interp.RPT Completed 02/18/2019 34761 Echocardiography, Transesophageal, Real Time W/Image 2D Completed W/W/O M-M 01/02/2019 68440 ECHO Transthorasic Realtime 2D W Doppler & Color Flow Hosp Completed Medical Devices Description No Information Available Encounters Type Date Location Provider Dx Diagnosis Office Visit 04/18/2019 [facility] Nicolejames K72.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, 3:26p Assoc,theron Motta MD unspecified Hospitalists without coma N17.9 Acute kidney failure, unspecified I50.9 Heart failure, unspecified D64.9 Anemia, unspecified E11.9 Type 2 diabetes mellitus without complications G89.29 Other chronic pain Office Visit 04/18/2019 10:16a [facility] Nephrology Meche An, N17.9 Acute kidney MD failure, unspecified N18.4 Chronic kidney disease, stage 4 (severe) Office Visit 04/16/2019 3:25p [facility] Cindy K72.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, Assoc,theron Husain MD unspecified [...] Office Visit 04/15/2019 3:25p [facility] Katey John, K72.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, Assoctheron MD unspecified Hospitalists without coma N17.9 Acute kidney failure, unspecified D64.9 Anemia, unspecified G89.4 Chronic pain syndrome Office Visit 04/15/2019 10:15a [facility] Nephrology Meche Haynes Negoi, N17.9 Acute kidney MD failure, unspecified Office Visit 04/14/2019 3:25p [facility] K72.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, Assoctheron MD unspecified Hospitalists without coma N17.9 Acute kidney failure, unspecified D64.9 Anemia, unspecified K27.9 Peptic ulc, site unsp, unsp as ac or chr, w/o hemor or perf Office Visit 04/14/2019 10:15a [facility] Nephrology Meche Haynes N17.9 Acute kidney MD Jvue failure, unspecified Office Visit 04/13/2019 3:24p [facility] K72.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, Assoc,theron Husain MD unspecified Hospitalists without coma N17.9 Acute kidney failure, unspecified D64.9 Anemia, unspecified K27.9 Peptic ulc, site unsp, unsp as ac or chr, w/o hemor or perf G89.4 Chronic pain syndrome 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 E11.9 Type 2 diabetes mellitus without complications Office Visit 04/13/2019 [facility] Nephrology Marlon Gutierrez N17.9 Acute kidney 1:52p MD Kisha failure, unspecified Office Visit 04/12/2019 [facility] Nephrology Marlon Gutierrez N17.9 Acute kidney 1:52p MD Ksiha failure, unspecified Office Visit 04/11/2019 [facility] K72.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, 3:23p Asstheron méndez MD unspecified Hospitalists without coma N17.9 Acute kidney failure, unspecified D64.9 Anemia, unspecified K27.9 Peptic ulc, site unsp, unsp as ac or chr, w/o hemor or perf G89.4 Chronic pain syndrome Office Visit 04/11/2019 [facility] Nephrology Marlon Gutierrez N17.9 Acute kidney 1:52p MD Kisha failure, unspecified Office Visit 04/10/2019 [facility] K72.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, 3:23p Assoc,pc Antione Finnegan. 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 N17.9 Acute kidney Kisha, MD failure, unspecified Office Visit 04/06/2019 1:47p [facility] Rosaline K72.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 , Stocking, SECOND BALLER unspecified without coma E72.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, unspecified K75.81 Nonalcoholic steatohepatitis ([place]) I10 Essential (primary) hypertension Office Visit 04/05/2019 10:13a [facility] Nephrology Meche An, N17.9 Acute kidney MD failure, unspecified N18.4 Chronic kidney disease, stage 4 (severe) Office Visit 04/05/2019 1:47p [facility] Rosaline K72.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 , Stocking, SECOND BALLER unspecified without coma D63.8 Anemia in other chronic diseases classified elsewhere E72.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, unspecified E87.70 Fluid overload, unspecified Office Visit 04/04/2019 2:53p [facility] Nephrology Meche An, N17.9 Acute kidney MD failure, unspecified N18.4 Chronic kidney disease, stage 4 (severe) E87.70 Fluid overload, unspecified D63.1 Anemia in chronic kidney disease Office Visit 04/04/2019 1:47p [facility] Mohit Diamond D64.9 Anemia, Assoc, [place], [place] unspecified Hospitalists N17.9 Acute kidney failure, unspecified K72.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, unspecified without coma K75.81 Nonalcoholic steatohepatitis ([place]) Office Visit 04/03/2019 1:46p [facility] Mohit Diamond D63.1 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, [place], [place] chronic kidney Hospitalists disease N17.9 Acute kidney failure, unspecified E11.22 Type 2 diabetes mellitus w diabetic chronic kidney disease N18.9 Chronic kidney disease, unspecified Office Visit 04/03/2019 2:35p [facility] Nephrology Marlon Gutierrez N17.9 Acute kidney MD Kisha failure, unspecified D63.1 Anemia in chronic kidney disease Office Visit 04/02/2019 3:11p [facility] D63.1 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,pc Merari, ESOL TEACHER ASSISTANT chronic kidney Hospitalists disease N17.9 Acute kidney failure, unspecified 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 N18.9 Chronic kidney disease, unspecified Office Visit 03/27/2019 2:00p [facility] Nephrology Marlon Gutierrez N18.4 Chronic kidney MD Kisha disease, stage 4 (severe) K74.60 Unspecified cirrhosis of liver E11.22 Type 2 diabetes mellitus w diabetic chronic kidney disease E87.70 Fluid overload, unspecified R06.02 Shortness of breath Z68.43 Body mass index (BMI) 50.0-59.9, adult Office Visit 02/21/2019 10:17a [facility] Jessica Luther R78.81 Bacteremia Infectious Diseases Mery Bowen I89.0 Lymphedema, not elsewhere classified Office Visit 02/21/2019 [facility] Jessica Valdez, A40.8 Other 1:14p Assoc,pc ESOL TEACHER ASSISTANT streptococcal Hospitalists sepsis K72.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, unspecified without coma R18.8 Other ascites D63.1 Anemia in chronic kidney disease N18.9 Chronic kidney disease, unspecified 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 I89.0 Lymphedema, not elsewhere classified Office Visit 02/19/2019 [facility] A49.1 Streptococcal 1:13p Assoctheron MD infection, Hospitalists unspecified site N17.9 Acute kidney failure, unspecified D64.9 Anemia, unspecified I86.4 Gastric varices D69.6 Thrombocytopenia, unspecified E11.9 Type 2 diabetes mellitus without complications G89.4 Chronic pain syndrome Office Visit 02/18/2019 [facility] Janelle A49.1 Streptococcal 1:12p Assoc,pc Marito, DO infection, Hospitalists unspecified site R65.20 Severe sepsis without septic shock D64.9 Anemia, unspecified N17.9 Acute kidney failure, unspecified D69.6 Thrombocytopenia, unspecified E11.9 Type 2 diabetes mellitus without complications G89.4 Chronic pain syndrome R53.1 Weakness Office Visit 02/17/2019 10:14a [facility] Anmol Luther R78.81 Bacteremia Infectious Diseases Mery Bowen I89.0 Lymphedema, not elsewhere classified E11.22 Type 2 diabetes mellitus w diabetic chronic kidney disease N18.9 Chronic kidney disease, unspecified [facility] R78.81 Bacteremia Assoc, Hospitalists DO R65.20 Severe sepsis without septic shock N17.9 Acute kidney failure, unspecified D64.9 Anemia, unspecified D69.6 Thrombocytopenia, unspecified R53.1 Weakness G89.4 Chronic pain syndrome Office Visit 02/16/2019 [facility] Emily R50.9 Fever, 1:11p Assoc,pc ELOISA Whelan unspecified Hospitalists R53.1 Weakness N17.9 Acute kidney failure, unspecified D64.9 Anemia, unspecified Office Visit 01/03/2019 7:00a [facility] Rizwan Flores, R47.01 Aphasia Q21.1 Atrial septal defect E78.5 Hyperlipidemia, unspecified E66.9 Obesity, unspecified Office Visit 01/03/2019 11:01a [facility] Poppy Heather, G45.9 Transient Assoc,pc ESOL TEACHER ASSISTANT cerebral ischemic Hospitalists attack, unspecified N17.9 Acute kidney failure, unspecified 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 N18.3 Chronic kidney disease, stage 3 (moderate) Office Visit 01/01/2019 7:00a [facility] Rizwan Flores, R47.01 Aphasia R41.82 Altered mental status, unspecified Office Visit 01/01/2019 [facility] Jessicadanni FelicianoJayjay, G45.9 Transient 11:01a Assoc,pc ESOL TEACHER ASSISTANT cerebral ischemic Hospitalists attack, unspecified D69.6 Thrombocytopenia, [...] 05/01/2019 K74.60 Unspecified cirrhosis of liver Lavern Dagn MD 05/01/2019 R18.8 Other ascites Lavern Dang [...] Isabel Motta MD 04/14/2019 D64.9 Anemia, unspecified Isaebl Motta MD 04/14/2019 K27.9 Peptic ulcer, site [...] K72.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, unspecified without coma Rosio Finnegan D.O. 04/10/2019 D64.9 Anemia, unspecified Rosio Kain, [...] 04/10/2019 E11.9 Type 2 diabetes mellitus without Avila Brice.O. 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 Katey Lopez MD [...] 04/07/2019 K72.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, unspecified without coma Diaan Vega MD 04/07/2019 N17.9 Acute kidney failure, unspecified Marlon Beard MD 04/07/2019 E72.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, Diana Vega MD unspecified 04/07/2019 K75.81 Nonalcoholic steatohepatitis ([place]) Diana Vega MD 04/07/2019 I10 Essential (primary) hypertension Diana Vega MD 04/06/2019 K72.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, unspecified without coma Rosaline Stocking , SECOND BALLER 04/06/2019 E72.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, Rosaline Stocking, SECOND BALLER unspecified 04/06/2019 K75.81 Nonalcoholic steatohepatitis ([place]) Rosaline Stocking, SECOND BALLER 04/06/2019 I10 Essential (primary) hypertension Rosaline Stocking, SECOND BALLER 04/05/2019 N17.9 Acute kidney failure, unspecified Meche An MD 04/05/2019 K72.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, unspecified without coma Rosaline Stocking , SECOND BALLER 04/05/2019 N18.4 Chronic kidney disease, stage 4 (severe) Meche An MD 04/05/2019 D63.8 Anemia in other chronic diseases Rosaline Stocking, SECOND BALLER classified elsewhere 04/05/2019 E72.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, Rosaline Stocking, SECOND BALLER unspecified 04/05/2019 E87.70 Fluid overload, unspecified Rosaline Stocking, SECOND BALLER 04/04/2019 D64.9 Anemia, unspecified CAMILO Cabezas 04/04/2019 [...] Anemia in chronic kidney disease Araceli Shortle, ESOL TEACHER ASSISTANT 04/02/2019 N17.9 Acute kidney failure, unspecified Araceli Shortle, ESOL TEACHER ASSISTANT 04/02/2019 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 chronic kidney disease with Araceli Shortle, ESOL TEACHER ASSISTANT stage 1 through stage 4 chronic kidney disease, or unspecified chronic kidney disease 04/02/2019 N18.9 Chronic kidney disease, unspecified Araceli Shortle, ESOL TEACHER ASSISTANT 03/27/2019 N18.4 Chronic kidney disease, stage 4 [...] 02/21/2019 A40.8 Other streptococcal sepsis Jessica Valdez, ESOL TEACHER ASSISTANT 02/21/2019 I89.0 Lymphedema, not elsewhere classified Anmol Bowen M.D. 02/21/2019 K72.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, unspecified without coma Jessica Valdez, ELOISA 02/21/2019 R18.8 Other ascites Jessica Valdez NP [...] Bowen M.D. 02/20/2019 D64.9 Anemia, unspecified Missy lOivera MD 02/20/2019 I86.4 Gastric varices Missy Olivera MD 02/20/2019 D69.6 Thrombocytopenia, unspecified Missy Olivera MD 02/20/2019 E11.9 Type 2 diabetes mellitus without Misys Olivera MD complications 02/20/2019 G89.4 Chronic pain syndrome Missy Olivera MD 02/19/2019 A49.1 Streptococcal infection, unspecified site Missy Olivera MD 02/19/2019 N17.9 Acute kidney failure, unspecified Missy Olivera MD 02/19/2019 D64.9 Anemia, unspecified Missy Olivera MD 02/19/2019 I86.4 Gastric varices Missy Olivera MD 02/19/2019 D69.6 Thrombocytopenia, unspecified Missy Olivera MD 02/19/2019 E11.9 Type 2 diabetes mellitus without Missylarry Olivera MD complications 02/19/2019 G89.4 Chronic pain [...] Anmol Bowen M.D. 02/17/2019 R78.81 Bacteremia Janelle Senner, DO 02/17/2019 E11.22 Type 2 diabetes mellitus [...] Senner, DO 02/16/2019 R50.9 Fever, unspecified Emily Grainfield, ESOL TEACHER ASSISTANT 02/16/2019 R53.1 Weakness Emily Cleopatra, ESOL TEACHER ASSISTANT 02/16/2019 N17.9 Acute kidney failure, unspecified Emily Cleopatra, ESOL TEACHER ASSISTANT 02/16/2019 D64.9 Anemia, unspecified Emily Cleopatra, ESOL TEACHER ASSISTANT 01/03/2019 R47.01 Aphasia Rizwan Flores MD 01/03/2019 Q21.1 Atrial septal defect Rizwan Flores MD 01/03/2019 G45.9 Transient cerebral ischemic attack, Poppy Hetaher, ESOL TEACHER ASSISTANT unspecified 01/03/2019 E78.5 Hyperlipidemia, unspecified Rizwan Flores MD 01/03/2019 E66.9 Obesity, unspecified Rizwan Flores MD 01/03/2019 N17.9 Acute kidney failure, unspecified Poppy Heather, ESOL TEACHER ASSISTANT 01/03/2019 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 chronic kidney disease with Poppy Heather, ESOL TEACHER ASSISTANT stage 1 through stage 4 chronic kidney disease, or unspecified chronic kidney disease 01/03/2019 N18.3 Chronic kidney disease, stage 3 Poppy Heather, ESOL TEACHER ASSISTANT (moderate) 01/02/2019 I63.9 Cerebral infarction, unspecified Femi Aguirre M.D. 01/02/2019 G45.9 Transient cerebral ischemic attack, Poppy Heather, ESOL TEACHER ASSISTANT unspecified 01/02/2019 N18.3 Chronic kidney disease, stage 3 Poppy Heather, ESOL TEACHER ASSISTANT (moderate) 01/02/2019 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 chronic kidney disease with Poppy Heather, ESOL TEACHER ASSISTANT stage 1 through stage 4 chronic kidney disease, or unspecified chronic kidney disease 01/01/2019 R47.01 Aphasia Rizwan Flores MD 01/01/2019 G45.9 Transient cerebral ischemic attack, Jessica Valdez NP unspecified 01/01/2019 R41.82 Altered mental status, unspecified Rizwan Flores MD 01/01/2019 D69.6 Thrombocytopenia, unspecified Jessica Valdez, ELOISA 01/01/2019 D64.9 Anemia, unspecified Jessica Valdez, ELOISA 01/01/2019 R79.89 Other specified abnormal findings of Jessica Valdez NP blood chemistry Plan of Treatment No Information Available Functional Status Description No Information Available Mental Status Description No Information Available Referrals Description No Information Available
--- OUTSIDE RECORDS SUMMARY | 2019-05-13 04:36 | XMS REPORT | Continuity of Care Document ---
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 395231Gmpt/GM Cream Allopurinol 1 by mouth every Unknown [...] Unknown 81mg day Tablets DR JERNIGAN Unknown Inglis-3 Fish Oil take 1 tab by mouth [...] Result H/L Range Note Basic Metabolic 04/29/2019 [facility] Sodium 138 mmol/L Normal 135-145 1 [address] [place] [address] [phone] Potassium 3.6 mmol/L Normal 3.5-5.0 Chloride 99 mmol/L Low 101-111 Co2 Carbon Dioxide 32 mmol/L Normal 22-32 Anion Gap 7 mmol/L Normal 2-11 Glucose 193 mg/dL High 70-100 Blood Urea Nitrogen 33 mg/dL High 6-24 Creatinine 1.86 mg/dL High 0.51-0.95 BUN/Creatinine Ratio 17.7 Normal 8-20 Calcium 8.3 mg/dL Low 8.6-10.3 Egfr Non- 26.6 >60 Egfr 32.1 >60 2 Comp Metabolic 04/23/2019 [facility] Sodium 139 mmol/L Normal 135-145 Panel [address] [place] [address] [phone] Potassium 3.7 mmol/L Normal 3.5-5.0 Chloride 99 [...] Egfr 28.7 >60 3 Laboratory test 04/23/2019 [facility] Ammonia 86 mcmol/L High 16-[address] [place] [address] [phone] Laboratory test 04/22/2019 [facility] Pathologist (SEE NOTE) 4, [address] [place] [address] [phone] Manual 04/22/2019 [facility] Neutrophil % 58.0 % Differential [address] [place] [address] [phone] Lymphocytes % 25.0 % Monocytes % 10.0 % Eosinophils % 6.0 % Variant Lymph % 1.0 % Normal 0-6 Hypochromasia 1+ Anisocytosis 2+ Target Cells 1+ Stomatocytes 1+ CBC Auto 04/22/2019 [facility] White Blood 5.7 10^3/uL Normal 3.5-10.[address] [place] [address] [phone] Red Blood Count 2.47 10^6/uL Low 3.70-4.87 [...] Blood Cells % 0.0 Laboratory test 04/22/2019 [facility] Prealbumin 5 mg/dL Low 18-38 6 finding [address] [place] [address] [phone] Basic Metabolic 04/22/2019 [facility] Sodium 139 mmol/L Normal 135-145 Panel [address] [place] [address] [phone] Potassium 4.2 mmol/L Normal 3.5-5.0 Chloride 98 mmol/L Low 101-111 Co2 Carbon Dioxide 33 mmol/L High 22-32 Anion Gap 8 mmol/L Normal 2-11 Glucose 176 mg/dL High 70-100 Blood Urea Nitrogen 42 mg/dL High 6-24 Creatinine 2.08 mg/dL High 0.51-0.95 BUN/Creatinine Ratio 20.2 High 8-20 Calcium 8.9 mg/dL Normal 8.6-10.3 Egfr Non- 23.3 >60 Egfr 28.2 >60 7 Laboratory test 04/22/2019 [facility] Ammonia TNP mcmol/L 16- 53 8, 9 finding [address] [place] [address] [phone] Comp Metabolic 04/22/2019 [facility] Sodium 137 mmol/L Normal 135-145 Panel [address] [place] [address] [phone] Potassium 3.9 mmol/L Normal 3.5-5.0 Chloride 97 [...] 28.9 >60 10 Type & Screen 04/02/2019 [facility] Patient Blood Type A Positive [address] [place] [address] [phone] Antibody Screen NEGATIVE Laboratory test 04/02/2019 [facility] Packed Cells SEE RESULTS [address] [place]O <[place] [address] NOTE> [phone] Urine Culture And 03/27/2019 [facility] Urine Culture SEE RESULT [address] [place] [address] [phone] Laboratory test 03/27/2019 [facility] Pathologist (SEE NOTE) [address] [place] [address] [phone] Cell Morphology 03/27/2019 [facility] Macrocytosis 3+ [address] [place] [address] [phone] Anisocytosis 2+ Target Cells 1+ Laboratory test 03/27/2019 [facility] Ferritin 117.2 ng/mL Normal 11-[address] [place] [address] [phone] B-Type Natriuretic Peptide BNP 839 pg/mL High <=100 Iron & Iron Binding 03/27/2019 [facility] Iron 105 g/dL Normal 50-[address] [place] [address] [phone] Unsaturated Iron Binding < 209 g/dL Total Iron Binding Capacity 224 g/dL Low 250-450 Transferrin 160 mg/dL Low 203-362 % Iron Saturation 47 % Normal 15-55 Laboratory test 03/27/2019 [facility] Hemoglobin A1c 5.1 % Normal 4.0-5.[address] (Glyco HGB) [place] [address] [phone] Albumin 2.0 g/dL Low 3.2-5.2 Urinalysis Profile 03/27/2019 [facility] Urine Color Yellow [address] [place] [address] [phone] Urine Appearance Clear Urine Specific [place] 1.012 Normal 1.010-1.030 Urine pH 5.0 Normal [...] Cell Present Abnormal Absent Basic Metabolic 03/27/2019 [facility] Sodium 138 mmol/L Normal 135-[address] [place] [address] [phone] Co2 Carbon Dioxide 17 mmol/L Low 22-32 Glucose 110 mg/dL High 70-100 Blood Urea Nitrogen 52 mg/dL High 6-24 Creatinine 5.41 mg/dL High 0.51-0.95 BUN/Creatinine Ratio 9.6 Normal 8-20 Calcium 8.3 mg/dL Low 8.6-10.3 Egfr Non- 7.7 >60 Egfr 9.4 >60 16 Potassium 5.5 mmol/L High 3.5-5.0 Chloride 113 mmol/L High 101-111 Anion Gap 8 mmol/L Normal 2-11 CBC Auto 03/27/2019 [facility] White Blood 6.7 10^3/uL Normal 3.5-10.[address] [place] [address] [phone] Red Blood Count 2.17 10^6/uL Low 3.70-4.87 [...] Blood Cells % 0.2 Neph Routine 03/27/2019 [facility] Total Protein Random 43 mg/ dL [address] [place] [address] [phone] Creatinine Random Urine 117.28 mg/dL Laboratory 02/16/2019 [facility] Lactic Acid 5.3 Critical 0.5- 2.0 18 test finding [address] mmol/[place] [address] [phone] Influenza A & 02/16/2019 [facility] Flu AB (SEE 19, B Request [address] Disclaimer NOTE) 20 [place] [address] [phone] Influenza A Molecular NEGATIVE Negative Influenza B Molecular NEGATIVE Negative 21 1 [id number] 2 Because ethnic data is not always [...] 5 Kidney failure <15 (or dialysis) 4 [id number] 5 Macrocytic anemia. Mild thrombocytopenia. No evidence of hemolytic process. Reviewed by Mónica Snow MD 6 [id number] 7 Because ethnic data is not always [...] 5 Kidney failure <15 (or dialysis) 8 [id number] 9 Unable to report test result due [...] ISSUES PER PT 12 SEE RESULTS BELOW [id number] AP PC TRANSFUSED 04/02/19 2324 [id number] AP PC TRANSFUSED 04/03/19 0936 [id number] AP PC TRANSFUSED 04/04/19 0628 [id number] AP PC TRANSFUSED 04/04/19 0935 13 SEE RESULT BELOW Name: BONNIE AGUILERA : [address]: Marlon Beard MD Acct: [id number] Unit: [id number] AGE: 73 Location: LAB Re03/27/19 SEX: F Status: REG REF SPEC: [id number] CORINA: 03/27/19-[address]: Marlon Beard MD REQ: [id number] RECD: 03/27/19451 STATUS: COMP _ SOURCE: URINE SPDESC: ORDERED: Urine Culture Procedure Result Reported Site Urine Culture Final 03/28/19- 1406 ML No Growth (<1,000 CFU/mL) * ML - Main Lab . END OF REPORT DEPARTMENT OF PATHOLOGY, [address] [place] [address] Nic Weber M.D. Director [facility] # [id number] 14 Moderate macrocytic anemia with thrombocytopenia noted. [...] 02/19/19. 18 Critical Result LACT:5.3 Called to [id number] at: 22:01:07 by:[id number] Read back by:[id number] [facility] Severe Sepsis and Septic Shock Management Bundle Measure requires all lactic acids initially measuring >2.0 mmol/L be repeated. Critical Result LACT:5.3 Called to [id number] at: 22:01:07 by:[id number] Read back by:[id number] [facility] Severe Sepsis and Septic Shock Management Bundle Measure requires all lactic acids initially measuring >2.0 mmol/L be repeated. 19 NASAL 20 Suboptimal collection technique may reduce sensitivity of test. Refer to the [facility] Test Catalog for collection information: [email or web address] As with all diagnostic procedures, the laboratory results obtained should be used in conjunction with other clinical information available to the physician, including confirmation by another method, as applicable. 21 Home Health Care Social Worker: [id number] Procedures Date Code Description Status 02/18/2019 88830 Moderate Sedation Services; Same Phys Intl 15 Mins; PT >= Completed 5 Years 02/18/2019 23839 Color Flow Doppler/Interp & Reprt Completed 02/18/2019 76320 Pulse Wave/Continuous-Interp.RPT Completed 02/18/2019 34237 Echocardiography, Transesophageal, Real Time W/Image 2D Completed W/W/O M-M 01/02/2019 39385 ECHO Transthorasic Realtime 2D W Doppler & Color Flow Hosp Completed Medical Devices Description No Information Available Encounters Type Date Location Provider Dx Diagnosis Office Visit 04/18/2019 [facility] Meche An MD N17.9 Acute kidney [...] Chronic pain syndrome Office Visit 04/15/2019 10:15a [facility] Meche Ivy Negoi, N17.9 Acute kidney MD failure, unspecified Office Visit 04/14/2019 3:25p [facility] K72.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, Assoctheron MD unspecified Hospitalists without coma N17.9 Acute kidney failure, unspecified D64.9 Anemia, unspecified K27.9 Peptic ulc, site unsp, unsp as ac or chr, w/o hemor or perf Office Visit 04/14/2019 10:15a [facility] Meche G N17.9 Acute kidney Juve, failure, unspecified Office Visit 04/13/2019 3:24p [facility] K72.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, Assoctheron MD unspecified Hospitalists without coma N17.9 Acute kidney failure, unspecified D64.9 Anemia, unspecified K27.9 Peptic ulc, site unsp, unsp as ac or chr, w/o hemor or perf G89.4 Chronic pain syndrome 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 N17.9 Acute kidney 1:52p MD Kisha failure, unspecified Office Visit 04/12/2019 [facility] Marlon A. N17.9 Acute kidney 1:52p MD Kisha failure, unspecified Office Visit 04/11/2019 [facility] Marlon A. N17.9 Acute kidney 1:52p MD Kisha failure, unspecified Office Visit 04/11/2019 [facility] K72.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, 3:23p theron Escalante MD unspecified Hospitalists without coma N17.9 Acute kidney failure, unspecified D64.9 Anemia, unspecified K27.9 Peptic ulc, site unsp, unsp as ac or chr, w/o hemor or perf G89.4 Chronic pain syndrome Office Visit 04/10/2019 3:23p [facility] K72.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, Assoc,theron Finnegan D.O. 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 I50.30 Unspecified diastolic (congestive) heart failure E11.9 Type 2 diabetes mellitus without complications Office Visit 04/10/2019 [facility] Marlon Gutierrez N17.9 Acute kidney [...] I50.30 Unspecified diastolic (congestive) heart failure Z79.4 senior care (current) use of insulin E11.22 Type 2 [...] kidney disease, unspecified Office Visit 04/08/2019 10:39a [facility] Marlon Gutierrez N17.9 Acute kidney MD Kisha failure, unspecified Office Visit 04/07/2019 1:48p [facility] Diana Vega MD K72.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, unspecified without coma E72.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, unspecified K75.81 Nonalcoholic steatohepatitis ([place]) I10 Essential (primary) hypertension Office Visit 04/07/2019 9:20a [facility] Marlon Gutierrez N17.9 Acute kidney MD Kisha failure, unspecified Office Visit 04/06/2019 1:47p [facility] Rosaline K72.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 , Stocking, NURSING FACULTY unspecified without coma E72.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, unspecified K75.81 Nonalcoholic steatohepatitis ([place]) I10 Essential (primary) hypertension Office Visit 04/05/2019 10:13a [facility] Meche An, N17.9 Acute kidney MD failure, unspecified N18.4 Chronic kidney disease, stage 4 (severe) Office Visit 04/05/2019 1:47p [facility] Rosaline K72.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 , Stocking, NURSING FACULTY unspecified without coma D63.8 Anemia in other chronic diseases classified elsewhere E72.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, unspecified E87.70 Fluid overload, unspecified Office Visit 04/04/2019 1:47p [facility] Lobo D64.9 Anemia, Assoc,CAMILO Vaughn unspecified Hospitalists N17.9 Acute kidney failure, unspecified K72.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, unspecified without coma K75.81 Nonalcoholic steatohepatitis ([place]) Office Visit 04/04/2019 2:53p [facility] Meche An, N17.9 Acute kidney MD failure, unspecified N18.4 Chronic kidney disease, stage 4 (severe) E87.70 Fluid overload, unspecified D63.1 Anemia in chronic kidney disease Office Visit 04/03/2019 2:35p [facility] Marlon Gutierrez N17.9 Acute kidney MD Kisha failure, unspecified D63.1 Anemia in chronic kidney disease Office Visit 04/03/2019 1:46p [facility] Lobo D63.1 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,CAMILO Vaughn chronic kidney Hospitalists disease N17.9 Acute kidney failure, unspecified E11.22 Type 2 diabetes mellitus w diabetic chronic kidney disease N18.9 Chronic kidney disease, unspecified Office Visit 04/02/2019 3:11p [facility] D63.1 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,theron Gage NP chronic kidney Hospitalists disease N17.9 Acute kidney failure, unspecified 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 N18.9 Chronic kidney disease, unspecified Office Visit 03/27/2019 2:00p [facility] Marlon Gutierrez N18.4 Chronic kidney MD Kisha disease, stage 4 (severe) K74.60 Unspecified cirrhosis of liver E11.22 Type 2 diabetes mellitus w diabetic chronic kidney disease E87.70 Fluid overload, unspecified R06.02 Shortness of breath Z68.43 Body mass index (BMI) 50.0-59.9, adult Office Visit 02/21/2019 10:17a [facility] Jessica Luther R78.81 Bacteremia Infectious Diseases Mery Bowen I89.0 Lymphedema, not elsewhere classified Office Visit 02/21/2019 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 E78.5 Hyperlipidemia, unspecified Office Visit 02/20/2019 10:16a [facility] Jessica Luther R78.81 Bacteremia Infectious Diseases Mery Bowen I89.0 Lymphedema, not elsewhere classified Office Visit 02/20/2019 [facility] A49.1 Streptococcal 1:13p Assoc,theron Olivera MD infection, Hospitalists unspecified site D64.9 Anemia, unspecified 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 Janelle Devi, R78.81 Bacteremia Assoc, Hospitalists DO R65.20 Severe sepsis without septic shock N17.9 Acute kidney failure, unspecified D64.9 Anemia, unspecified D69.6 Thrombocytopenia, unspecified R53.1 Weakness G89.4 Chronic pain syndrome Office Visit 02/16/2019 [facility] Emily R50.9 Fever, 1:11p Assoc,pc Cleopatra, ASPHALT BLENDER unspecified Hospitalists R53.1 Weakness N17.9 Acute kidney failure, unspecified D64.9 Anemia, unspecified Office Visit 01/03/2019 7:00a [facility] Rizwan Flores, R47.01 Aphasia Q21.1 Atrial septal defect E78.5 Hyperlipidemia, unspecified E66.9 Obesity, unspecified Office Visit 01/03/2019 11:01a 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, Rosaline Stocking, NURSING FACULTY unspecified 04/06/2019 K75.81 Nonalcoholic steatohepatitis ([place]) Rosaline Stocking, NURSING FACULTY 04/06/2019 I10 Essential (primary) hypertension Rosaline Stocking, NURSING FACULTY 04/05/2019 N17.9 Acute kidney failure, unspecified Meche An MD 04/05/2019 K72.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, unspecified without coma Rosaline Stocking , NURSING FACULTY 04/05/2019 N18.4 Chronic kidney disease, stage 4 (severe) Meche An MD 04/05/2019 D63.8 Anemia in other chronic diseases Rosaline Stocking, NURSING FACULTY classified elsewhere 04/05/2019 E72.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, Rosaline Stocking, NURSING FACULTY unspecified 04/05/2019 E87.70 Fluid overload, unspecified Rosaline Stocking, NURSING FACULTY 04/04/2019 D64.9 Anemia, unspecified CAMILO Cabezas 04/04/2019 N17.9 Acute kidney failure, unspecified Meche An MD 04/04/2019 N17.9 Acute kidney failure, unspecified CAMILO Cabezas 04/04/2019 N18.4 Chronic kidney disease, stage 4 (severe) Meche An MD 04/04/2019 K72.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, unspecified without coma CAMILO Cabezas 04/04/2019 E87.70 Fluid overload, unspecified Meche An MD 04/04/2019 K75.81 Nonalcoholic steatohepatitis ([place]) CAMILO Caebzas 04/04/2019 D63.1 Anemia in chronic kidney disease [...] Anemia in chronic kidney disease Araceli Shortle, ASPHALT BLENDER 04/02/2019 N17.9 Acute kidney failure, unspecified Araceli Shortle, ASPHALT BLENDER 04/02/2019 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 chronic kidney disease with Araceli Shortle, ASPHALT BLENDER stage 1 through stage 4 chronic kidney disease, or unspecified chronic kidney disease 04/02/2019 N18.9 Chronic kidney disease, unspecified Araceli Shortle, ASPHALT BLENDER 03/27/2019 N18.4 Chronic kidney disease, stage 4 [...] syndrome Janelle Senner, DO 02/18/2019 R53.1 Weakness Jnaelle Senner, DO 02/17/2019 R78.81 Bacteremia Anmol Bowen [...] Senner, DO 02/16/2019 R50.9 Fever, unspecified Emily [place], ASPHALT BLENDER 02/16/2019 R53.1 Weakness Emily [place], ASPHALT BLENDER 02/16/2019 N17.9 Acute kidney failure, unspecified Emily [place], ASPHALT BLENDER 02/16/2019 D64.9 Anemia, unspecified Emily Cleopatra, ASPHALT BLENDER 01/03/2019 R47.01 Aphasia Rizwan Flores MD 01/03/2019 Q21.1 Atrial septal defect Rizwan Flores MD 01/03/2019 G45.9 Transient cerebral ischemic attack, Poppy Heather, ASPHALT BLENDER unspecified 01/03/2019 E78.5 Hyperlipidemia, unspecified Rizwan Flores MD 01/03/2019 E66.9 Obesity, unspecified Rizwan Flores MD 01/03/2019 N17.9 Acute kidney failure, unspecified Poppy Heather, ASPHALT BLENDER 01/03/2019 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 chronic kidney disease with Poppy Heather, ASPHALT BLENDER stage 1 through stage 4 chronic kidney disease, or unspecified chronic kidney disease 01/03/2019 N18.3 Chronic kidney disease, stage 3 Poppy Heather, ASPHALT BLENDER (moderate) 01/02/2019 I63.9 Cerebral infarction, unspecified Femi Aguirre M.D. 01/02/2019 G45.9 Transient cerebral ischemic attack, Poppy Heather, ASPHALT BLENDER unspecified 01/02/2019 N18.3 Chronic kidney disease, stage 3 Poppy Heather, ASPHALT BLENDER (moderate) 01/02/2019 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 chronic kidney disease with Poppy Heather, ASPHALT BLENDER stage 1 through stage 4 chronic kidney disease, or unspecified chronic kidney disease 01/01/2019 R47.01 Aphasia Rizwan Flores MD 01/01/2019 G45.9 Transient cerebral ischemic attack, Jesscia Valdez NP unspecified 01/01/2019 R41.82 Altered mental [...]
--- OUTSIDE RECORDS SUMMARY | 2019-05-13 04:36 | XMS REPORT | Continuity of Care Document ---
:1945 External Reference #:[id number] Author Name Katey Lopez MD (transmitted by agent of provider Leatha Schultz) Address [address] [place] [address] Care Team Providers Name Role Phone Rafat Senior MD - Family Medicine Care Team Information Manager Actuarial Problems Description No Information Available Social History [...] apply twice a day Unknown until resolved. [id number]/GM Cream Allopurinol 1 by mouth every Unknown [...] Unknown 81mg day Tablets DR JERNIGAN Unknown [place]-3 Fish Oil take 1 tab by mouth [...] Result H/L Range Note Basic Metabolic 04/29/2019 [facility] Sodium 138 mmol/L Normal 135-145 1 Panel [address] [place] [address] [phone] Potassium 3.6 mmol/L Normal 3.5-5.0 Chloride 99 mmol/L Low 101-111 Co2 Carbon Dioxide 32 mmol/L Normal 22-32 Anion Gap 7 mmol/L Normal 2-11 Glucose 193 mg/dL High 70-100 Blood Urea Nitrogen 33 mg/dL High 6-24 Creatinine 1.86 mg/dL High 0.51-0.95 BUN/Creatinine Ratio 17.7 Normal 8-20 Calcium 8.3 mg/dL Low 8.6-10.3 Egfr Non- 26.6 >60 Egfr 32.1 >60 2 Comp Metabolic 04/23/2019 [facility] Sodium 139 mmol/L Normal 135-145 Panel [address] [place] [address] [phone] Potassium 3.7 mmol/L Normal 3.5-5.0 Chloride 99 [...] Egfr 28.7 >60 3 Laboratory test 04/23/2019 [facility] Ammonia 86 mcmol/L High 16-[address] [place] [address] [phone] Laboratory test 04/22/2019 [facility] Pathologist (SEE NOTE) 4, [address] [place] [address] [phone] Manual 04/22/2019 [facility] Neutrophil % 58.0 % Differential [address] [place] [address] [phone] Lymphocytes % 25.0 % Monocytes % 10.0 % Eosinophils % 6.0 % Variant Lymph % 1.0 % Normal 0-6 Hypochromasia 1+ Anisocytosis 2+ Target Cells 1+ Stomatocytes 1+ CBC Auto 04/22/2019 [facility] White Blood 5.7 10^3/uL Normal 3.5-10.[address] [place] [address] [phone] Red Blood Count 2.47 10^6/uL Low 3.70-4.87 [...] Blood Cells % 0.0 Laboratory test 04/22/2019 [facility] Prealbumin 5 mg/dL Low 18-38 6 finding [address] [place] [address] [phone] Basic Metabolic 04/22/2019 [facility] Sodium 139 mmol/L Normal 135-145 Panel [address] [place] [address] [phone] Potassium 4.2 mmol/L Normal 3.5-5.0 Chloride 98 mmol/L Low 101-111 Co2 Carbon Dioxide 33 mmol/L High 22-32 Anion Gap 8 mmol/L Normal 2-11 Glucose 176 mg/dL High 70-100 Blood Urea Nitrogen 42 mg/dL High 6-24 Creatinine 2.08 mg/dL High 0.51-0.95 BUN/Creatinine Ratio 20.2 High 8-20 Calcium 8.9 mg/dL Normal 8.6-10.3 Egfr Non- 23.3 >60 Egfr 28.2 >60 7 Laboratory test 04/22/2019 [facility] Ammonia TNP mcmol/L 16- 53 8, 9 finding [address] [place] [address] [phone] Comp Metabolic 04/22/2019 [facility] Sodium 137 mmol/L Normal 135-145 Panel [address] [place] [address] [phone] Potassium 3.9 mmol/L Normal 3.5-5.0 Chloride 97 [...] 28.9 >60 10 Type & Screen 04/02/2019 [facility] Patient Blood Type A Positive [address] [place] [address] [phone] Antibody Screen NEGATIVE Laboratory test 04/02/2019 [facility] Packed Cells SEE RESULTS [address] <[place] [address] NOTE> [phone] Urine Culture And 03/27/2019 [facility] Urine Culture SEE RESULT [address] [place], [place] [id number] [phone] Laboratory test 03/27/2019 [facility] Pathologist (SEE NOTE) [address] [place], [place] [address] [phone] Cell Morphology 03/27/2019 [facility] Macrocytosis 3+ [address] [place] [address] [phone] Anisocytosis 2+ Target Cells 1+ Laboratory test 03/27/2019 [facility] Ferritin 117.2 ng/mL Normal 11-[address] [place], [place] [address] [phone] B-Type Natriuretic Peptide BNP 839 pg/mL High <=100 Iron & Iron Binding 03/27/2019 [facility] Iron 105 g/dL Normal 50-[address] [place], [place] [address] [phone] Unsaturated Iron Binding < 209 g/dL Total Iron Binding Capacity 224 g/dL Low 250-450 Transferrin 160 mg/dL Low 203-362 % Iron Saturation 47 % Normal 15-55 Laboratory test 03/27/2019 [facility] Hemoglobin A1c 5.1 % Normal 4.0-5.[address] (Glyco HGB) [place], [place] [address] [phone] Albumin 2.0 g/dL Low 3.2-5.2 Urinalysis Profile 03/27/2019 [facility] Urine Color Yellow [address] [place], [place] [address] [phone] Urine Appearance Clear Urine Specific Walker 1.012 Normal 1.010-1.030 Urine pH 5.0 Normal [...] Cell Present Abnormal Absent Basic Metabolic 03/27/2019 [facility] Sodium 138 mmol/L Normal 135-[address] [place] [address] [phone] Co2 Carbon Dioxide 17 mmol/L Low 22-32 Glucose 110 mg/dL High 70-100 Blood Urea Nitrogen 52 mg/dL High 6-24 Creatinine 5.41 mg/dL High 0.51-0.95 BUN/Creatinine Ratio 9.6 Normal 8-20 Calcium 8.3 mg/dL Low 8.6-10.3 Egfr Non- 7.7 >60 Egfr 9.4 >60 16 Potassium 5.5 mmol/L High 3.5-5.0 Chloride 113 mmol/L High 101-111 Anion Gap 8 mmol/L Normal 2-11 CBC Auto 03/27/2019 [facility] White Blood 6.7 10^3/uL Normal 3.5-10.[address] [place] [address] [phone] Red Blood Count 2.17 10^6/uL Low 3.70-4.87 [...] Blood Cells % 0.2 Neph Routine 03/27/2019 [facility] Total Protein Random 43 mg/ dL [address] [place] [address] [phone] Creatinine Random Urine 117.28 mg/dL Laboratory 02/16/2019 [facility] Lactic Acid 5.3 Critical 0.5- 2.0 18 test finding [address] mmol/L high [place], [place] [address] [phone] Influenza A & 02/16/2019 [facility] Flu AB (SEE 19, B Request [address] Disclaimer NOTE) 20 [place] [address] [phone] Influenza A Molecular NEGATIVE Negative Influenza B Molecular NEGATIVE Negative 21 1 [id number] 2 Because ethnic data is not always [...] 5 Kidney failure <15 (or dialysis) 4 [id number] 5 Macrocytic anemia. Mild thrombocytopenia. No evidence of hemolytic process. Reviewed by Mónica Snow MD 6 [id number] 7 Because ethnic data is not always [...] 5 Kidney failure <15 (or dialysis) 8 [id number] 9 Unable to report test result due [...] ISSUES PER PT 12 SEE RESULTS BELOW [id number] AP PC TRANSFUSED 04/02/19 2324 [id number] AP PC TRANSFUSED 04/03/19 0936 [id number] AP PC TRANSFUSED 04/04/19 0628 [id number] AP PC TRANSFUSED 04/04/19 0935 13 SEE RESULT BELOW Name: BONNIE AGUILERA : [address]: Marlon Beard MD Acct: [id number] Unit: [id number] AGE: 73 Location: LAB Re03/27/19 SEX: F Status: REG REF SPEC: [id number] CORINA: 03/27/19-[address]: Marlon Beard MD REQ: [id number] RECD: 03/27/19-823 STATUS: COMP _ SOURCE: URINE SPDESC: ORDERED: Urine Culture Procedure Result Reported Site Urine Culture Final 03/28/19- 1406 ML No Growth (<1,000 CFU/mL) * ML - Main Lab . END OF REPORT DEPARTMENT OF PATHOLOGY, [address] [place] [address] Nic Weber M.D. Director [facility] # [id number] 14 Moderate macrocytic anemia with thrombocytopenia noted. Clinical correlation suggested. Additional studies is warranted. Reviewed by Dr. Weber 15 Therapeutic target for the treatment of diabetes mellitus patients is <7% HBA1C, and in selective patients <6.0%. Please refer to [employer] diabetic care guidelines for further [...] 02/19/19. 18 Critical Result LACT:5.3 Called to [id number] at: 22:01:07 by:[id number] Read back by:[id number] ERICA Severe Sepsis and Septic Shock Management Bundle Measure requires all lactic acids initially measuring >2.0 mmol/L be repeated. Critical Result LACT:5.3 Called to [id number] at: 22:01:07 by:[id number] Read back by:[id number] [facility] Severe Sepsis and Septic Shock Management Bundle Measure requires all lactic acids initially measuring >2.0 mmol/L be repeated. 19 NASAL 20 Suboptimal collection technique may reduce sensitivity of test. Refer to the [facility] Test Catalog for collection information: [email or web address] As with all diagnostic procedures, the laboratory results obtained should be used in conjunction with other clinical information available to the physician, including confirmation by another method, as applicable. 21 Machine Hoop Maker: [id number] Procedures Date Code Description Status 02/18/2019 26430 Moderate Sedation Services; Same Phys Intl 15 Mins; PT >= Completed 5 Years 02/18/2019 72359 Color Flow Doppler/Interp & Reprt Completed 02/18/2019 47240 Pulse Wave/Continuous-Interp.RPT Completed 02/18/2019 30379 Echocardiography, Transesophageal, Real Time W/Image 2D Completed W/W/O M-M 01/02/2019 58715 ECHO Transthorasic Realtime 2D W Doppler & Color Flow Hosp Completed Medical Devices Description No Information Available Encounters Type Date Location Provider Dx Diagnosis Office Visit 04/18/2019 [facility] Meche An MD N17.9 Acute kidney 10:16a failure, unspecified N18.4 Chronic kidney disease, stage 4 (severe) Office Visit 04/16/2019 3:25p [facility] Cindy K72.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, Assoc,pc MD [...] kidney disease, unspecified Office Visit 04/15/2019 3:25p [facility] Katey Lopez, K72.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, Assoc,pc unspecified Hospitalists without coma N17.9 Acute kidney failure, unspecified D64.9 Anemia, unspecified G89.4 Chronic pain syndrome Office Visit 04/15/2019 10:15a [facility] Meche Haynes Negoi, N17.9 Acute kidney MD failure, unspecified Office Visit 04/14/2019 3:25p [facility] K72.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, Asstheron méndez MD unspecified Hospitalists without coma N17.9 Acute kidney failure, unspecified D64.9 Anemia, unspecified K27.9 Peptic ulc, site unsp, unsp as ac or chr, w/o hemor or perf Office Visit 04/14/2019 10:15a [facility] Meche G N17.9 Acute kidney MD Juve failure, unspecified Office Visit 04/13/2019 3:24p [facility] K72.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, Assoctheron MD unspecified Hospitalists without coma N17.9 Acute kidney failure, unspecified D64.9 Anemia, unspecified K27.9 Peptic ulc, site unsp, unsp as ac or chr, w/o hemor or perf G89.4 Chronic pain syndrome Z79.4 halfway (current) use of insulin E11.9 Type 2 diabetes mellitus without complications Office Visit 04/13/2019 [facility] Marlon A. N17.9 Acute kidney 1:52p MD Kisha failure, unspecified Office Visit 04/12/2019 [facility] Marlon A. N17.9 Acute kidney 1:52p MD Kisha failure, unspecified Office Visit 04/11/2019 [facility] Marlon A. N17.9 Acute kidney 1:52p MD Kisha failure, unspecified Office Visit 04/11/2019 [facility] K72.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, 3:23p theron Escalante MD unspecified Hospitalists without coma N17.9 Acute kidney failure, unspecified D64.9 Anemia, unspecified K27.9 Peptic ulc, site unsp, unsp as ac or chr, w/o hemor or perf G89.4 Chronic pain syndrome Office Visit 04/10/2019 3:23p [facility] K72.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, Assoc,theron Finnegan, D.O. 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 I50.30 Unspecified diastolic (congestive) heart failure E11.9 Type 2 diabetes mellitus without complications Office Visit 04/10/2019 [facility] Marlon Gutierrez N17.9 Acute kidney 9:09a MD Kisha failure, unspecified Office Visit 04/09/2019 [facility] Katey Lopez MD K72.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, 3:23p Assoc,pc unspecified Hospitalists without coma D64.9 Anemia, unspecified N17.9 Acute kidney failure, unspecified G89.4 Chronic pain syndrome K27.9 Peptic ulc, site unsp, unsp as ac or chr, w/o hemor or perf 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 I50.30 Unspecified diastolic (congestive) heart failure Z79.4 halfway (current) use of insulin E11.22 Type 2 diabetes mellitus w diabetic chronic kidney disease N18.9 Chronic kidney disease, unspecified Office Visit 04/08/2019 3:22p [facility] Katey Lopez, K72.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, Assochteron MD unspecified Hospitalists without coma N17.9 Acute [...] kidney disease, unspecified Office Visit 04/08/2019 10:39a [facility] Marlon Gutierrez N17.9 Acute kidney MD Kisha failure, unspecified Office Visit 04/07/2019 1:48p [facility] Diana Vega MD K72.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, unspecified without coma E72.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, unspecified K75.81 Nonalcoholic steatohepatitis ([place]) I10 Essential (primary) hypertension Office Visit 04/07/2019 9:20a [facility] Marlon Gutierrez N17.9 Acute kidney MD Kisha failure, unspecified Office Visit 04/06/2019 1:47p [facility] Rosaline K72.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 , Stocking, CORE FINISHER unspecified without coma E72.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, unspecified K75.81 Nonalcoholic steatohepatitis ([place]) I10 Essential (primary) hypertension Office Visit 04/05/2019 10:13a [facility] Meche An, N17.9 Acute kidney MD failure, unspecified N18.4 Chronic kidney disease, stage 4 (severe) Office Visit 04/05/2019 1:47p [facility] Rosaline K72.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 , Stocking, CORE FINISHER unspecified without coma D63.8 Anemia in other chronic diseases classified elsewhere E72.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, unspecified E87.70 Fluid overload, unspecified Office Visit 04/04/2019 1:47p [facility] Lobo D64.9 Anemia, Assoc,CAMILO Vaughn unspecified Hospitalists N17.9 Acute kidney failure, unspecified K72.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, unspecified without coma K75.81 Nonalcoholic steatohepatitis ([place]) Office Visit 04/04/2019 2:53p [facility] Meche An, N17.9 Acute kidney MD failure, unspecified N18.4 Chronic kidney disease, stage 4 (severe) E87.70 Fluid overload, unspecified D63.1 Anemia in chronic kidney disease Office Visit 04/03/2019 2:35p [facility] Marlon Gutierrez N17.9 Acute kidney MD Kisha failure, unspecified D63.1 Anemia in chronic kidney disease Office Visit 04/03/2019 1:46p [facility] Lobo D63.1 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,CAMILO Vaughn chronic kidney Hospitalists disease N17.9 Acute kidney failure, unspecified E11.22 Type 2 diabetes mellitus w diabetic chronic kidney disease N18.9 Chronic kidney disease, unspecified Office Visit 04/02/2019 3:11p [facility] D63.1 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,pc Merari, HANDYPERSON chronic kidney Hospitalists disease N17.9 Acute kidney failure, unspecified 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 N18.9 Chronic kidney disease, unspecified Office Visit 03/27/2019 2:00p [facility] Marlon Gutierrez N18.4 Chronic kidney MD Kisha disease, stage 4 (severe) K74.60 Unspecified cirrhosis of liver E11.22 Type 2 diabetes mellitus w diabetic chronic kidney disease E87.70 Fluid overload, unspecified R06.02 Shortness of breath Z68.43 Body mass index (BMI) 50.0-59.9, adult Office Visit 02/21/2019 10:17a [facility] Jessica Luther R78.81 Bacteremia Infectious Diseases Mery Bowen I89.0 Lymphedema, not elsewhere classified Office Visit 02/21/2019 [facility] Jessica Valdez, A40.8 Other 1:14p Assoc,pc HANDYPERSON streptococcal Hospitalists sepsis K72.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, unspecified without coma R18.8 Other ascites D63.1 Anemia in chronic kidney disease N18.9 Chronic kidney disease, unspecified 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 chronic kidney 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/unsp [facility] kim E78.5 Hyperlipidemia, unspecified Office Visit 02/20/2019 10:16a [facility] Jessica Luther R78.81 Bacteremia Infectious Diseases Mery Bowen I89.0 Lymphedema, not elsewhere classified Office Visit 02/20/2019 [facility] A49.1 Streptococcal 1:13p Assoc,theron Olivera MD infection, Hospitalists unspecified site D64.9 Anemia, unspecified I86.4 Gastric varices D69.6 Thrombocytopenia, unspecified E11.9 Type 2 diabetes mellitus without complications G89.4 Chronic pain syndrome Office Visit 02/19/2019 [facility] A49.1 Streptococcal 1:13p Assoc,theron Olivera MD infection, Hospitalists unspecified site N17.9 Acute kidney failure, unspecified D64.9 Anemia, unspecified I86.4 Gastric varices D69.6 Thrombocytopenia, unspecified E11.9 Type 2 diabetes mellitus without complications G89.4 Chronic pain syndrome Office Visit 02/18/2019 [facility] Janelle A49.1 Streptococcal 1:12p Assoc,pc Senner, DO infection, Hospitalists unspecified site R65.20 Severe sepsis without septic shock D64.9 Anemia, unspecified N17.9 Acute kidney failure, unspecified D69.6 Thrombocytopenia, unspecified E11.9 Type 2 diabetes mellitus without complications G89.4 Chronic pain syndrome R53.1 Weakness Office Visit 02/17/2019 10:14a [facility] Anmol Luther R78.81 Bacteremia Infectious Diseases Mery Bowen I89.0 Lymphedema, not elsewhere classified E11.22 Type 2 diabetes mellitus w diabetic chronic kidney disease N18.9 Chronic kidney disease, unspecified Office Visit 02/17/2019 1:12p [facility] Janelle Devi, R78.81 Bacteremia Assoc,pc Hospitalists DO R65.20 Severe sepsis without septic shock N17.9 Acute kidney failure, unspecified D64.9 Anemia, unspecified D69.6 Thrombocytopenia, unspecified R53.1 Weakness G89.4 Chronic pain syndrome Office Visit 02/16/2019 [facility] Emily R50.9 Fever, 1:11p Assoc,pc ELOISA Whelan unspecified Hospitalists R53.1 Weakness N17.9 Acute kidney failure, unspecified D64.9 Anemia, unspecified Office Visit 01/03/2019 7:00a [facility] Rizwan Flores, R47.01 Aphasia Q21.1 Atrial septal defect E78.5 Hyperlipidemia, unspecified E66.9 Obesity, unspecified Office Visit 01/03/2019 11:01a [facility] Poppy Heather, G45.9 Transient Assoc,pc HANDYPERSON cerebral ischemic Hospitalists attack, unspecified N17.9 Acute kidney failure, unspecified 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 N18.3 Chronic kidney disease, stage 3 (moderate) Office Visit 01/01/2019 7:00a [facility] Rizwan Flores, R47.01 Aphasia R41.82 Altered mental status, unspecified Office Visit 01/01/2019 [facility] Jessica Valdez, G45.9 Transient 11:01a Assoc,pc HANDYPERSON cerebral ischemic Hospitalists attack, unspecified D69.6 Thrombocytopenia, [...] Katey Lopez MD 04/15/2019 D64.9 Anemia, unspecified Katye Lopez MD 04/15/2019 G89.4 Chronic pain syndrome [...] pain syndrome Cindy Husain MD 04/13/2019 Z79.4 halfway (current) use of insulin Cindy Husain MD 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.4 halfway (current) use of insulin Katey Lopez MD [...] failure, unspecified without coma Rosaline Stocking , CORE FINISHER 04/06/2019 E72.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, Rosaline Stocking, CORE FINISHER unspecified 04/06/2019 K75.81 Nonalcoholic steatohepatitis ([place]) Rosaline Stocking, CORE FINISHER 04/06/2019 I10 Essential (primary) hypertension Rosaline Stocking, CORE FINISHER 04/05/2019 N17.9 Acute kidney failure, unspecified Meche An MD 04/05/2019 K72.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, unspecified without coma Rosaline Stocking , CORE FINISHER 04/05/2019 N18.4 Chronic kidney disease, stage 4 (severe) Meche An MD 04/05/2019 D63.8 Anemia in other chronic diseases Rosaline Stocking, CORE FINISHER classified elsewhere 04/05/2019 E72.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, Rosaline Stocking, CORE FINISHER unspecified 04/05/2019 E87.70 Fluid overload, unspecified Rosaline Stocking, CORE FINISHER 04/04/2019 D64.9 Anemia, unspecified CAMILO Cabezas 04/04/2019 [...] Anemia in chronic kidney disease Araceli Shortle, HANDYPERSON 04/02/2019 N17.9 Acute kidney failure, unspecified Araceli Shortle, HANDYPERSON 04/02/2019 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 chronic kidney disease with Araceli Shortle, HANDYPERSON stage 1 through stage 4 chronic kidney disease, or unspecified chronic kidney disease 04/02/2019 N18.9 Chronic kidney disease, unspecified Araceli Shortle, HANDYPERSON 03/27/2019 N18.4 Chronic kidney disease, stage 4 [...] Senner, DO 02/16/2019 R50.9 Fever, unspecified Emily Springfield, HANDYPERSON 02/16/2019 R53.1 Weakness Emily Springfield, HANDYPERSON 02/16/2019 N17.9 Acute kidney failure, unspecified Emily [place], HANDYPERSON 02/16/2019 D64.9 Anemia, unspecified Emily Cleopatra, HANDYPERSON 01/03/2019 R47.01 Aphasia Rizwan Flores MD 01/03/2019 Q21.1 Atrial septal defect Rizwan Flores MD 01/03/2019 G45.9 Transient cerebral ischemic attack, Poppy Heather, HANDYPERSON unspecified 01/03/2019 E78.5 Hyperlipidemia, unspecified Rizwan Flores MD 01/03/2019 E66.9 Obesity, unspecified Rizwan Flores MD 01/03/2019 N17.9 Acute kidney failure, unspecified Poppy Heather, HANDYPERSON 01/03/2019 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 chronic kidney disease with Poppy Heather, HANDYPERSON stage 1 through stage 4 chronic kidney disease, or unspecified chronic kidney disease 01/03/2019 N18.3 Chronic kidney disease, stage 3 Poppy Heather, HANDYPERSON (moderate) 01/02/2019 I63.9 Cerebral infarction, unspecified Femi Aguirre M.D. 01/02/2019 G45.9 Transient cerebral ischemic attack, Poppy Heather, HANDYPERSON unspecified 01/02/2019 N18.3 Chronic kidney disease, stage 3 Poppy Heather, HANDYPERSON (moderate) 01/02/2019 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 chronic kidney disease with Poppy Heather, HANDYPERSON stage 1 through stage 4 chronic kidney [...]
--- OUTSIDE RECORDS SUMMARY | 2019-05-13 04:36 | XMS REPORT | Continuity of Care Document ---
:1945 External Reference #:[id number] Author Name Katey Lopez MD (transmitted by agent of provider Leatha Schultz) Address [address] [place] [address] Care Team Providers Name Role Phone Rafat Senior MD - Family Medicine Care Team Information Appeals Officer Problems Description No Information Available Social [...] apply twice a day Unknown until resolved. [id number] Cream Allopurinol 1 by mouth every Unknown [...] Unknown 81mg day Tablets DR JERNIGAN Unknown Winthrop-3 Fish Oil take 1 tab by mouth [...] Result H/L Range Note Basic Metabolic 04/29/2019 [facility] Sodium 138 mmol/L Normal 135-145 1 Panel [address] [place] [address] [phone] Potassium 3.6 mmol/L Normal 3.5-5.0 Chloride 99 mmol/L Low 101-111 Co2 Carbon Dioxide 32 mmol/L Normal 22-32 Anion Gap 7 mmol/L Normal 2-11 Glucose 193 mg/dL High 70-100 Blood Urea Nitrogen 33 mg/dL High 6-24 Creatinine 1.86 mg/dL High 0.51-0.95 BUN/Creatinine Ratio 17.7 Normal 8-20 Calcium 8.3 mg/dL Low 8.6-10.3 Egfr Non- 26.6 >60 Egfr 32.1 >60 2 Comp Metabolic 04/23/2019 [facility] Sodium 139 mmol/L Normal 135-145 Panel [address] [place] [address] [phone] Potassium 3.7 mmol/L Normal 3.5-5.0 Chloride 99 [...] Egfr 28.7 >60 3 Laboratory test 04/23/2019 [facility] Ammonia 86 mcmol/L High 16-[address] [place] [address] [phone] Laboratory test 04/22/2019 [facility] Pathologist (SEE NOTE) 4, [address] [place] [address] [phone] Manual 04/22/2019 [facility] Neutrophil % 58.0 % Differential [address] [place] [address] [phone] Lymphocytes % 25.0 % Monocytes % 10.0 % Eosinophils % 6.0 % Variant Lymph % 1.0 % Normal 0-6 Hypochromasia 1+ Anisocytosis 2+ Target Cells 1+ Stomatocytes 1+ CBC Auto 04/22/2019 [facility] White Blood 5.7 10^3/uL Normal 3.5-10.[address] [place] [address] [phone] Red Blood Count 2.47 10^6/uL Low 3.70-4.87 [...] Blood Cells % 0.0 Laboratory test 04/22/2019 [facility] Prealbumin 5 mg/dL Low 18-38 6 finding [address] [place] [address] [phone] Basic Metabolic 04/22/2019 [facility] Sodium 139 mmol/L Normal 135-145 Panel [address] [place] [address] [phone] Potassium 4.2 mmol/L Normal 3.5-5.0 Chloride 98 mmol/L Low 101-111 Co2 Carbon Dioxide 33 mmol/L High 22-32 Anion Gap 8 mmol/L Normal 2-11 Glucose 176 mg/dL High 70-100 Blood Urea Nitrogen 42 mg/dL High 6-24 Creatinine 2.08 mg/dL High 0.51-0.95 BUN/Creatinine Ratio 20.2 High 8-20 Calcium 8.9 mg/dL Normal 8.6-10.3 Egfr Non- 23.3 >60 Egfr 28.2 >60 7 Laboratory test 04/22/2019 [facility] Ammonia TNP mcmol/L 16- 53 8, 9 finding [address] [place] [address] [phone] Comp Metabolic 04/22/2019 [facility] Sodium 137 mmol/L Normal 135-145 Panel [address] [place] [address] [phone] Potassium 3.9 mmol/L Normal 3.5-5.0 Chloride 97 [...] 28.9 >60 10 Type & Screen 04/02/2019 [facility] Patient Blood Type A Positive [address] [place] [address] [phone] Antibody Screen NEGATIVE Laboratory test 04/02/2019 [facility] Packed Cells SEE RESULTS [address] [place]O <[place] [address] NOTE> [phone] Urine Culture And 03/27/2019 [facility] Urine Culture SEE RESULT [address] [place], [place] [id number] [phone] Laboratory test 03/27/2019 [facility] Pathologist (SEE NOTE) [address] [place], [place] [address] [phone] Cell Morphology 03/27/2019 [facility] Macrocytosis 3+ [address] [place] [address] [phone] Anisocytosis 2+ Target Cells 1+ Laboratory test 03/27/2019 [facility] Ferritin 117.2 ng/mL Normal 11-[address] [place], [place] [address] [phone] B-Type Natriuretic Peptide BNP 839 pg/mL High <=100 Iron & Iron Binding 03/27/2019 [facility] Iron 105 g/dL Normal 50-[address] [place], [place] [address] [phone] Unsaturated Iron Binding < 209 g/dL Total Iron Binding Capacity 224 g/dL Low 250-450 Transferrin 160 mg/dL Low 203-362 % Iron Saturation 47 % Normal 15-55 Laboratory test 03/27/2019 [facility] Hemoglobin A1c 5.1 % Normal 4.0-5.[address] (Glyco HGB) [place], [place] [address] [phone] Albumin 2.0 g/dL Low 3.2-5.2 Urinalysis Profile 03/27/2019 [facility] Urine Color Yellow [address] [place], [place] [address] [phone] Urine Appearance Clear Urine Specific Shelby 1.012 Normal 1.010-1.030 Urine pH 5.0 Normal [...] Cell Present Abnormal Absent Basic Metabolic 03/27/2019 [facility] Sodium 138 mmol/L Normal 135-[address] [place] [address] [phone] Co2 Carbon Dioxide 17 mmol/L Low 22-32 Glucose 110 mg/dL High 70-100 Blood Urea Nitrogen 52 mg/dL High 6-24 Creatinine 5.41 mg/dL High 0.51-0.95 BUN/Creatinine Ratio 9.6 Normal 8-20 Calcium 8.3 mg/dL Low 8.6-10.3 Egfr Non- 7.7 >60 Egfr 9.4 >60 16 Potassium 5.5 mmol/L High 3.5-5.0 Chloride 113 mmol/L High 101-111 Anion Gap 8 mmol/L Normal 2-11 CBC Auto 03/27/2019 [facility] White Blood 6.7 10^3/uL Normal 3.5-10.[address] [place] [address] [phone] Red Blood Count 2.17 10^6/uL Low 3.70-4.87 [...] Blood Cells % 0.2 Neph Routine 03/27/2019 [facility] Total Protein Random 43 mg/ dL [address] [place] [address] [phone] Creatinine Random Urine 117.28 mg/dL Laboratory 02/16/2019 [facility] Lactic Acid 5.3 Critical 0.5- 2.0 18 test finding [address] mmol/L high [place], [place] [address] [phone] Influenza A & 02/16/2019 [facility] Flu AB (SEE 19, B Request [address] Disclaimer NOTE) 20 [place] [address] [phone] Influenza A Molecular NEGATIVE Negative Influenza B Molecular NEGATIVE Negative 21 1 [id number] 2 Because ethnic data is not always [...] 5 Kidney failure <15 (or dialysis) 4 [id number] 5 Macrocytic anemia. Mild thrombocytopenia. No evidence of hemolytic process. Reviewed by Mónica Snow MD 6 [id number] 7 Because ethnic data is not always [...] 5 Kidney failure <15 (or dialysis) 8 [id number] 9 Unable to report test result due [...] ISSUES PER PT 12 SEE RESULTS BELOW [id number] AP PC TRANSFUSED 04/02/19 2324 [id number] AP PC TRANSFUSED 04/03/19 0936 [id number] AP PC TRANSFUSED 04/04/19 0628 [id number] AP PC TRANSFUSED 04/04/19 0935 13 SEE RESULT BELOW Name: BONNIE AGUILERA : [address]: Marlon Beard MD Acct: [id number] Unit: [id number] AGE: 73 Location: LAB Re03/27/19 SEX: F Status: REG REF SPEC: [id number] CORINA: 03/27/19-[address]: Marlon Beard MD REQ: [id number] RECD: 03/27/19-823 STATUS: COMP _ SOURCE: URINE SPDESC: ORDERED: Urine Culture Procedure Result Reported Site Urine Culture Final 03/28/19- 1406 ML No Growth (<1,000 CFU/mL) * ML - Main Lab . END OF REPORT DEPARTMENT OF PATHOLOGY, [address] [place] [address] Nic Weber M.D. Director [facility] # [id number] 14 Moderate macrocytic anemia with thrombocytopenia noted. Clinical correlation suggested. Additional studies is warranted. Reviewed by Dr. Weber 15 Therapeutic target for the treatment of diabetes mellitus patients is <7% HBA1C, and in selective patients <6.0%. Please refer to [place] [employer] diabetic care guidelines for further [...] 02/19/19. 18 Critical Result LACT:5.3 Called to [id number] at: 22:01:07 by:[id number] Read back by:[id number] ERICA Severe Sepsis and Septic Shock Management Bundle Measure requires all lactic acids initially measuring >2.0 mmol/L be repeated. Critical Result LACT:5.3 Called to [id number] at: 22:01:07 by:[id number] Read back by:[id number] [facility] Severe Sepsis and Septic Shock Management Bundle Measure requires all lactic acids initially measuring >2.0 mmol/L be repeated. 19 NASAL 20 Suboptimal collection technique may reduce sensitivity of test. Refer to the [facility] Test Catalog for collection information: [email or web address] As with all diagnostic procedures, the laboratory results obtained should be used in conjunction with other clinical information available to the physician, including confirmation by another method, as applicable. 21 Biophysics Scientist: [id number] Procedures Date Code Description Status 02/18/2019 16345 Moderate Sedation Services; Same Phys Intl 15 Mins; PT >= Completed 5 Years 02/18/2019 68661 Color Flow Doppler/Interp & Reprt Completed 02/18/2019 05263 Pulse Wave/Continuous-Interp.RPT Completed 02/18/2019 51887 Echocardiography, Transesophageal, Real Time W/Image 2D Completed W/W/O M-M 01/02/2019 71867 ECHO Transthorasic Realtime 2D W Doppler & Color Flow Hosp Completed Medical Devices Description No Information Available Encounters Type Date Location Provider Dx Diagnosis Office Visit 04/18/2019 [facility] Meche An MD N17.9 Acute kidney 10:16a failure, unspecified N18.4 Chronic kidney disease, stage 4 (severe) Office Visit 04/15/2019 [facility] Nephbrenda An, N17.9 Acute kidney 10:15a failure, unspecified Office Visit 04/14/2019 [facility] Nephbrenda An N17.9 Acute kidney 10:15a failure, unspecified Office Visit 04/13/2019 [facility] Nephbrenda Gutierrez N17.9 Acute kidney 1:52p MD Kisha failure, unspecified Office Visit 04/12/2019 [facility] Nephbrenda Gutierrez N17.9 Acute kidney 1:52p MD Kisha failure, unspecified Office Visit 04/11/2019 [facility] Nephbrenda Gutierrez N17.9 Acute kidney 1:52p MD Kisha failure, unspecified Office Visit 04/10/2019 [facility] Nephbrenda Gutierrez N17.9 Acute kidney 9:09a MD Kisha failure, unspecified Office Visit 04/08/2019 [facility] Katey Lopez MD K72.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, 3:22p Assoc,pc unspecified Hospitalists without coma N17.9 Acute [...] kidney disease, unspecified Office Visit 04/08/2019 10:39a [facility] Marlon Gutierrez N17.9 Acute kidney MD Kisha failure, unspecified Office Visit 04/07/2019 9:20a [facility] Marlon Gutierrez N17.9 Acute kidney MD Kisha failure, unspecified Office Visit 04/07/2019 1:48p Intensivists Diana Vega MD K72.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, unspecified without coma E72.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, unspecified K75.81 Nonalcoholic steatohepatitis ([place]) I10 Essential (primary) hypertension Office Visit 04/06/2019 1:47p [facility]ensivists Rosaline K72.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 , Stocking, HOSTESS CASHIER unspecified without coma E72.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 D64.9 Anemia, Assoc,pc CAMILO Ceballos unspecified Hospitalists N17.9 Acute kidney failure, unspecified K72.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, unspecified without coma K75.81 Nonalcoholic steatohepatitis ([place]) Office Visit 04/04/2019 2:53p [facility] Meche An, N17.9 Acute kidney failure, unspecified N18.4 Chronic kidney disease, stage 4 (severe) E87.70 Fluid overload, unspecified D63.1 Anemia in chronic kidney disease Office Visit 04/03/2019 1:46p [facility] Lobo D63.1 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,pc CAMILO Ceballos chronic kidney Hospitalists disease N17.9 Acute kidney failure, unspecified E11.22 Type 2 diabetes mellitus w diabetic chronic kidney disease N18.9 Chronic kidney disease, unspecified Office Visit 04/03/2019 2:35p [facility] Marlon Gutierrez N17.9 Acute kidney MD Kisha failure, unspecified D63.1 Anemia in chronic kidney disease Office Visit 04/02/2019 3:11p [facility] Araceli D63.1 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,theron Gage NP chronic kidney Hospitalists disease N17.9 Acute kidney failure, unspecified 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 N18.9 Chronic kidney disease, unspecified Office Visit 03/27/2019 2:00p [facility] Marlon Gutierrez N18.4 Chronic kidney MD Kisha disease, stage 4 (severe) K74.60 Unspecified cirrhosis of liver E11.22 Type 2 diabetes mellitus w diabetic chronic kidney disease E87.70 Fluid overload, unspecified R06.02 Shortness of breath Z68.43 Body mass index (BMI) 50.0-59.9, adult Office Visit 02/21/2019 10:17a [facility] Jessica Luther R78.81 Bacteremia Infectious Diseases Mery Bowen I89.0 Lymphedema, not elsewhere classified Office Visit 02/21/2019 [facility] Jessica Valdez, A40.8 Other 1:14p Assoc,pc SUPERVISOR INSTRUMENT REPAIR streptococcal Hospitalists sepsis K72.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, unspecified without coma R18.8 Other ascites D63.1 Anemia in chronic kidney disease N18.9 Chronic kidney disease, unspecified 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 E78.5 Hyperlipidemia, unspecified Office Visit 02/20/2019 [facility] A49.1 Streptococcal 1:13p Assoc,theron Olivera MD infection, Hospitalists unspecified site D64.9 Anemia, unspecified I86.4 Gastric varices D69.6 Thrombocytopenia, unspecified E11.9 Type 2 diabetes mellitus without complications G89.4 Chronic pain syndrome Office Visit 02/20/2019 10:16a [facility] Jessica Luther R78.81 Bacteremia Infectious Diseases Mery Bowen I89.0 Lymphedema, not elsewhere classified Office Visit 02/19/2019 [facility] A49.1 Streptococcal 1:13p Assoc,theron Olivera MD infection, Hospitalists unspecified site N17.9 Acute kidney failure, unspecified D64.9 Anemia, unspecified I86.4 Gastric varices D69.6 Thrombocytopenia, unspecified E11.9 Type 2 diabetes mellitus without complications G89.4 Chronic pain syndrome Office Visit 02/18/2019 [facility] A49.1 Streptococcal 1:12p Assoc,pc DO Marito infection, [...] kidney disease, unspecified [facility] R78.81 Bacteremia Assoc, Hospitalists DO R65.20 Severe sepsis without septic shock N17.9 Acute kidney failure, unspecified D64.9 Anemia, unspecified D69.6 Thrombocytopenia, unspecified R53.1 Weakness G89.4 Chronic pain syndrome Office Visit 02/16/2019 [facility] Emily R50.9 Fever, 1:11p Assoc,pc ELOISA Whelan unspecified Hospitalists R53.1 Weakness N17.9 Acute kidney failure, unspecified D64.9 Anemia, unspecified Office Visit 01/03/2019 7:00a [facility] Rizwan Flores, R47.01 Aphasia Q21.1 Atrial septal defect E78.5 Hyperlipidemia, unspecified E66.9 Obesity, unspecified Office Visit 01/03/2019 11:01a [facility] Poppy Heather, G45.9 Transient Assoc,pc SUPERVISOR INSTRUMENT REPAIR cerebral ischemic Hospitalists attack, unspecified N17.9 Acute kidney failure, unspecified 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 N18.3 Chronic kidney disease, stage 3 (moderate) Office Visit 01/01/2019 7:00a [facility] Rizwan Flores, R47.01 Aphasia R41.82 Altered mental status, unspecified Office Visit 01/01/2019 [facility] Jessica HowardRomarioJayjay, G45.9 Transient 11:01a Assoc,pc SUPERVISOR INSTRUMENT REPAIR cerebral ischemic Hospitalists attack, unspecified D69.6 Thrombocytopenia, [...] 04/16/2019 K72.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, unspecified without coma Isabel Motta MD 04/16/2019 D64.9 Anemia, unspecified Isabel Motta MD 04/16/2019 N17.9 Acute kidney failure, unspecified Isabel Motta MD 04/16/2019 I50.30 Unspecified diastolic (congestive) heart Isabel Motta MD failure 04/16/2019 K27.9 Peptic ulcer, site unspecified, Isabel Motta MD unspecified as acute or chronic, without hemorrhage or perforation 04/16/2019 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 and stage 1 through stage 4 chronic kidney disease, or unspecified chronic kidney disease 04/16/2019 E11.22 Type 2 diabetes mellitus with diabetic Isabel Motta MD chronic kidney disease 04/16/2019 N18.9 Chronic kidney disease, unspecified Isabel Motta MD 04/15/2019 N17.9 Acute kidney failure, unspecified Meche An MD 04/14/2019 N17.9 Acute kidney failure, unspecified Meche An MD 04/13/2019 N17.9 Acute kidney failure, unspecified Marlon Beard MD 04/12/2019 N17.9 Acute kidney failure, unspecified Marlon Beard MD 04/11/2019 N17.9 Acute kidney failure, unspecified Marlon Beard MD 04/10/2019 N17.9 Acute kidney failure, unspecified Marlon Beard MD 04/08/2019 K72.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, unspecified without [...] failure, unspecified without coma Rosaline Stocking , HOSTESS CASHIER 04/06/2019 E72.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, Rosaline Stocking, HOSTESS CASHIER unspecified 04/06/2019 K75.81 Nonalcoholic steatohepatitis ([place]) Rosaline Stocking, HOSTESS CASHIER 04/06/2019 I10 Essential (primary) hypertension Rosaline Stocking, HOSTESS CASHIER 04/05/2019 N17.9 Acute kidney failure, unspecified Meche An MD 04/05/2019 K72.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, unspecified without coma Rosaline Stocking , HOSTESS CASHIER 04/05/2019 N18.4 Chronic kidney disease, stage 4 (severe) Meche An MD 04/05/2019 D63.8 Anemia in other chronic diseases Rosaline Stocking, HOSTESS CASHIER classified elsewhere 04/05/2019 E72.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, Rosaline Stocking, HOSTESS CASHIER unspecified 04/05/2019 E87.70 Fluid overload, unspecified Rosaline Stocking, HOSTESS CASHIER 04/04/2019 D64.9 Anemia, unspecified CAMILO Cabezas 04/04/2019 [...] D63.1 Anemia in chronic kidney disease CAMILO Cbaezas 04/03/2019 N17.9 Acute kidney failure, unspecified CAMILO Cabezas 04/03/2019 N17.9 Acute kidney failure, unspecified Marlno Beard MD 04/03/2019 E11.22 Type 2 diabetes mellitus with diabetic CAMILO Cabezas chronic kidney disease 04/03/2019 N18.9 Chronic kidney disease, unspecified CAMILO Cabezas 04/03/2019 D63.1 Anemia in chronic kidney disease Marlon Beard MD 04/02/2019 D63.1 Anemia in chronic kidney disease Araceli Shortle, SUPERVISOR INSTRUMENT REPAIR 04/02/2019 N17.9 Acute kidney failure, unspecified Araceli Shortle, SUPERVISOR INSTRUMENT REPAIR 04/02/2019 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 chronic kidney disease with Araceli Shortle, SUPERVISOR INSTRUMENT REPAIR stage 1 through stage 4 chronic kidney disease, or unspecified chronic kidney disease 04/02/2019 N18.9 Chronic kidney disease, unspecified Araceli Shortle, SUPERVISOR INSTRUMENT REPAIR 03/27/2019 N18.4 Chronic kidney disease, stage 4 [...] D63.1 Anemia in chronic kidney disease Jessica Valdez, ELOISA 02/21/2019 N18.9 Chronic kidney disease, unspecified Jessica [...] 02/18/2019 A49.1 Streptococcal infection, unspecified site Janelle Devi, DO 02/18/2019 R65.20 Severe sepsis without septic [...] DO 02/16/2019 R50.9 Fever, unspecified Emily Cleopatra, SUPERVISOR INSTRUMENT REPAIR 02/16/2019 R53.1 Weakness Emily [place], SUPERVISOR INSTRUMENT REPAIR 02/16/2019 N17.9 Acute kidney failure, unspecified Emily [place], SUPERVISOR INSTRUMENT REPAIR 02/16/2019 D64.9 Anemia, unspecified Meily [place], SUPERVISOR INSTRUMENT REPAIR 01/03/2019 R47.01 Aphasia Rizwan Flores MD 01/03/2019 Q21.1 Atrial septal defect Rizwan Flores MD 01/03/2019 G45.9 Transient cerebral ischemic attack, Poppy Romero, SUPERVISOR INSTRUMENT REPAIR unspecified 01/03/2019 E78.5 Hyperlipidemia, unspecified Rizwan Flores MD 01/03/2019 E66.9 Obesity, unspecified Rizwan Flores MD 01/03/2019 N17.9 Acute kidney failure, unspecified Poppy Heather, SUPERVISOR INSTRUMENT REPAIR 01/03/2019 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 chronic kidney disease with Poppy Heather, SUPERVISOR INSTRUMENT REPAIR stage 1 through stage 4 chronic kidney disease, or unspecified chronic kidney disease 01/03/2019 N18.3 Chronic kidney disease, stage 3 Poppy Heather, SUPERVISOR INSTRUMENT REPAIR (moderate) 01/02/2019 I63.9 Cerebral infarction, unspecified Femi Aguirre M.D. 01/02/2019 G45.9 Transient cerebral ischemic attack, Poppy Heather, SUPERVISOR INSTRUMENT REPAIR unspecified 01/02/2019 N18.3 Chronic kidney disease, stage 3 Poppy Heather, SUPERVISOR INSTRUMENT REPAIR (moderate) 01/02/2019 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 chronic kidney disease with Poppy Heather, SUPERVISOR INSTRUMENT REPAIR stage 1 through stage 4 chronic kidney [...]
--- OUTSIDE RECORDS SUMMARY | 2019-05-13 04:36 | XMS REPORT | Continuity of Care Document ---
:1945 External Reference #:[id number] Author Name Cindy Husain MD (transmitted by agent of provider Leatha Schultz) Address [address] [place] [address] Care Team Providers Name Role Phone Rafat Senior MD - Family Medicine Care Team Information Chief Data Officer Problems Description No Information Available Social [...] apply twice a day Unknown until resolved. [id number]/GM Cream Allopurinol 1 by mouth every Unknown [...] Unknown 81mg day Tablets DR JERNIGAN Unknown [place]-3 Fish Oil take 1 tab by mouth [...] Result H/L Range Note Basic Metabolic 04/29/2019 [facility] Sodium 138 mmol/L Normal 135-145 1 Panel [address] [place] [address] [phone] Potassium 3.6 mmol/L Normal 3.5-5.0 Chloride 99 mmol/L Low 101-111 Co2 Carbon Dioxide 32 mmol/L Normal 22-32 Anion Gap 7 mmol/L Normal 2-11 Glucose 193 mg/dL High 70-100 Blood Urea Nitrogen 33 mg/dL High 6-24 Creatinine 1.86 mg/dL High 0.51-0.95 BUN/Creatinine Ratio 17.7 Normal 8-20 Calcium 8.3 mg/dL Low 8.6-10.3 Egfr Non- 26.6 >60 Egfr 32.1 >60 2 Comp Metabolic 04/23/2019 [facility] Sodium 139 mmol/L Normal 135-145 Panel [address] [place] [address] [phone] Potassium 3.7 mmol/L Normal 3.5-5.0 Chloride 99 [...] Egfr 28.7 >60 3 Laboratory test 04/23/2019 [facility] Ammonia 86 mcmol/L High 16-[address] [place] [address] [phone] Laboratory test 04/22/2019 [facility] Pathologist (SEE NOTE) 4, [address] [place] [address] [phone] Manual 04/22/2019 [facility] Neutrophil % 58.0 % Differential [address] [place] [address] [phone] Lymphocytes % 25.0 % Monocytes % 10.0 % Eosinophils % 6.0 % Variant Lymph % 1.0 % Normal 0-6 Hypochromasia 1+ Anisocytosis 2+ Target Cells 1+ Stomatocytes 1+ CBC Auto 04/22/2019 [facility] White Blood 5.7 10^3/uL Normal 3.5-10.[address] [place] [address] [phone] Red Blood Count 2.47 10^6/uL Low 3.70-4.87 [...] Blood Cells % 0.0 Laboratory test 04/22/2019 [facility] Prealbumin 5 mg/dL Low 18-38 6 finding [address] [place] [address] [phone] Basic Metabolic 04/22/2019 [facility] Sodium 139 mmol/L Normal 135-145 Panel [address] [place] [address] [phone] Potassium 4.2 mmol/L Normal 3.5-5.0 Chloride 98 mmol/L Low 101-111 Co2 Carbon Dioxide 33 mmol/L High 22-32 Anion Gap 8 mmol/L Normal 2-11 Glucose 176 mg/dL High 70-100 Blood Urea Nitrogen 42 mg/dL High 6-24 Creatinine 2.08 mg/dL High 0.51-0.95 BUN/Creatinine Ratio 20.2 High 8-20 Calcium 8.9 mg/dL Normal 8.6-10.3 Egfr Non- 23.3 >60 Egfr 28.2 >60 7 Laboratory test 04/22/2019 [facility] Ammonia TNP mcmol/L 16- 53 8, 9 finding [address] [place] [address] [phone] Comp Metabolic 04/22/2019 [facility] Sodium 137 mmol/L Normal 135-145 Panel [address] [place] [address] [phone] Potassium 3.9 mmol/L Normal 3.5-5.0 Chloride 97 [...] 28.9 >60 10 Type & Screen 04/02/2019 [facility] Patient Blood Type A Positive [address] [place] [address] [phone] Antibody Screen NEGATIVE Laboratory test 04/02/2019 [facility] Packed Cells SEE RESULTS [address] <[place] [address] NOTE> [phone] Urine Culture And 03/27/2019 [facility] Urine Culture SEE RESULT [address] [place], [place] [id number] [phone] Laboratory test 03/27/2019 [facility] Pathologist (SEE NOTE) [address] [place], [place] [id number] [phone] Cell Morphology 03/27/2019 [facility] Macrocytosis 3+ [address] [place] [address] [phone] Anisocytosis 2+ Target Cells 1+ Laboratory test 03/27/2019 [facility] Ferritin 117.2 ng/mL Normal 11-[address] [place], [place] [address] [phone] B-Type Natriuretic Peptide BNP 839 pg/mL High <=100 Iron & Iron Binding 03/27/2019 [facility] Iron 105 g/dL Normal 50-[address] [place], [place] [address] [phone] Unsaturated Iron Binding < 209 g/dL Total Iron Binding Capacity 224 g/dL Low 250-450 Transferrin 160 mg/dL Low 203-362 % Iron Saturation 47 % Normal 15-55 Laboratory test 03/27/2019 [facility] Hemoglobin A1c 5.1 % Normal 4.0-5.[address] (Glyco HGB) [place], [place] [id number] [phone] Albumin 2.0 g/dL Low 3.2-5.2 Urinalysis Profile 03/27/2019 [facility] Urine Color Yellow [address] [place], [place] [address] [phone] Urine Appearance Clear Urine Specific [place] 1.012 Normal 1.010-1.030 Urine pH 5.0 Normal [...] Cell Present Abnormal Absent Basic Metabolic 03/27/2019 [facility] Sodium 138 mmol/L Normal 135-[address] [place] [address] [phone] Co2 Carbon Dioxide 17 mmol/L Low 22-32 Glucose 110 mg/dL High 70-100 Blood Urea Nitrogen 52 mg/dL High 6-24 Creatinine 5.41 mg/dL High 0.51-0.95 BUN/Creatinine Ratio 9.6 Normal 8-20 Calcium 8.3 mg/dL Low 8.6-10.3 Egfr Non- 7.7 >60 Egfr 9.4 >60 16 Potassium 5.5 mmol/L High 3.5-5.0 Chloride 113 mmol/L High 101-111 Anion Gap 8 mmol/L Normal 2-11 CBC Auto 03/27/2019 [facility] White Blood 6.7 10^3/uL Normal 3.5-10.[address] [place] [address] [phone] Red Blood Count 2.17 10^6/uL Low 3.70-4.87 [...] Blood Cells % 0.2 Neph Routine 03/27/2019 [facility] Total Protein Random 43 mg/ dL [address] [place] [address] [phone] Creatinine Random Urine 117.28 mg/dL Laboratory 02/16/2019 [facility] Lactic Acid 5.3 Critical 0.5- 2.0 18 test finding [address] mmol/L high [place], [place] [address] [phone] Influenza A & 02/16/2019 [facility] Flu AB (SEE 19, B Request [address] Disclaimer NOTE) 20 [place] [address] [phone] Influenza A Molecular NEGATIVE Negative Influenza B Molecular NEGATIVE Negative 21 1 [id number] 2 Because ethnic data is not always [...] 5 Kidney failure <15 (or dialysis) 4 [id number] 5 Macrocytic anemia. Mild thrombocytopenia. No evidence of hemolytic process. Reviewed by Mónica Snow MD 6 [id number] 7 Because ethnic data is not always [...] 5 Kidney failure <15 (or dialysis) 8 [id number] 9 Unable to report test result due [...] ISSUES PER PT 12 SEE RESULTS BELOW [id number] AP PC TRANSFUSED 04/02/19 2324 [id number] AP PC TRANSFUSED 04/03/19 0936 [id number] AP PC TRANSFUSED 04/04/19 0628 [id number] AP PC TRANSFUSED 04/04/19 0935 13 SEE RESULT BELOW Name: BONNIE AGUILERA : [address]: Marlon Beard MD Acct: [id number] Unit: [id number] AGE: 73 Location: LAB Re03/27/19 SEX: F Status: REG REF SPEC: [id number] CORINA: 03/27/19-[address]: Marlon Beard MD REQ: [id number] RECD: 03/27/19-623 STATUS: COMP _ SOURCE: URINE SPDESC: ORDERED: Urine Culture Procedure Result Reported Site Urine Culture Final 03/28/19- 1406 ML No Growth (<1,000 CFU/mL) * ML - Main Lab . END OF REPORT DEPARTMENT OF PATHOLOGY, [address] [place] [address] Nic Weber M.D. Director [facility] # [id number] 14 Moderate macrocytic anemia with thrombocytopenia noted. Clinical correlation suggested. Additional studies is warranted. Reviewed by Dr. Weber 15 Therapeutic target for the treatment of diabetes mellitus patients is <7% HBA1C, and in selective patients <6.0%. Please refer to [place] [employer] diabetic care guidelines for further [...] 02/19/19. 18 Critical Result LACT:5.3 Called to [id number] at: 22:01:07 by:[id number] Read back by:[id number] ERICA Severe Sepsis and Septic Shock Management Bundle Measure requires all lactic acids initially measuring >2.0 mmol/L be repeated. Critical Result LACT:5.3 Called to [id number] at: 22:01:07 by:[id number] Read back by:[id number] [facility] Severe Sepsis and Septic Shock Management Bundle Measure requires all lactic acids initially measuring >2.0 mmol/L be repeated. 19 NASAL 20 Suboptimal collection technique may reduce sensitivity of test. Refer to the [facility] Test Catalog for collection information: [email or web address] As with all diagnostic procedures, the laboratory results obtained should be used in conjunction with other clinical information available to the physician, including confirmation by another method, as applicable. 21 Jet Dyeing Machine Operator: [id number] Procedures Date Code Description Status 02/18/2019 79698 Moderate Sedation Services; Same Phys Intl 15 Mins; PT >= Completed 5 Years 02/18/2019 83955 Color Flow Doppler/Interp & Reprt Completed 02/18/2019 17272 Pulse Wave/Continuous-Interp.RPT Completed 02/18/2019 14890 Echocardiography, Transesophageal, Real Time W/Image 2D Completed W/W/O M-M 01/02/2019 06905 ECHO Transthorasic Realtime 2D W Doppler & Color Flow Hosp Completed Medical Devices Description No Information Available Encounters Type Date Location Provider Dx Diagnosis Office Visit 04/18/2019 [facility] Nephrology Meche An MD N17.9 Acute kidney 10:16a failure, unspecified N18.4 Chronic kidney disease, stage 4 (severe) Office Visit 04/16/2019 3:25p [facility] Cindy K72.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, Assoc,pc MD [...] kidney disease, unspecified Office Visit 04/15/2019 3:25p [facility] Katey Lopez, K72.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, Assoc,pc unspecified Hospitalists without coma N17.9 Acute kidney failure, unspecified D64.9 Anemia, unspecified G89.4 Chronic pain syndrome Office Visit 04/15/2019 10:15a [facility] Nephrology Meche Haynes Negoi, N17.9 Acute kidney MD failure, unspecified Office Visit 04/14/2019 3:25p [facility] K72.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, Asstheron méndez MD unspecified Hospitalists without coma N17.9 Acute kidney failure, unspecified D64.9 Anemia, unspecified K27.9 Peptic ulc, site unsp, unsp as ac or chr, w/o hemor or perf Office Visit 04/14/2019 10:15a [facility] Nephrology Meche G N17.9 Acute kidney MD Juve failure, unspecified Office Visit 04/13/2019 3:24p [facility] K72.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, Assoctheron MD unspecified Hospitalists without coma N17.9 Acute kidney failure, unspecified D64.9 Anemia, unspecified K27.9 Peptic ulc, site unsp, unsp as ac or chr, w/o hemor or perf G89.4 Chronic pain syndrome Z79.4 snf (current) use of insulin E11.9 Type 2 diabetes mellitus without complications Office Visit 04/13/2019 [facility] Nephrology Marlon A. N17.9 Acute kidney 1:52p MD Kisha failure, unspecified Office Visit 04/12/2019 [facility] Nephrology Marlon A. N17.9 Acute kidney 1:52p MD Kisha failure, unspecified Office Visit 04/11/2019 [facility] Nephrology Marlon A. N17.9 Acute kidney 1:52p MD Kisha failure, unspecified Office Visit 04/11/2019 [facility] K72.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, 3:23p theron Escalante MD unspecified Hospitalists without coma N17.9 Acute kidney failure, unspecified D64.9 Anemia, unspecified K27.9 Peptic ulc, site unsp, unsp as ac or chr, w/o hemor or perf G89.4 Chronic pain syndrome Office Visit 04/10/2019 3:23p [facility] K72.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, Assoc,theron Finnegan, D.O. 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 I50.30 Unspecified diastolic (congestive) heart failure E11.9 Type 2 diabetes mellitus without complications Office Visit 04/10/2019 [facility] Nephrology Marlon Gutierrez N17.9 Acute kidney 9:09a MD Kisha failure, unspecified Office Visit 04/09/2019 [facility] Katey Lopez MD K72.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, 3:23p Assoc,pc unspecified Hospitalists without coma D64.9 Anemia, unspecified N17.9 Acute kidney failure, unspecified G89.4 Chronic pain syndrome K27.9 Peptic ulc, site unsp, unsp as ac or chr, w/o hemor or perf 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 I50.30 Unspecified diastolic (congestive) heart failure 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 E11.22 Type 2 diabetes mellitus w diabetic chronic kidney disease N18.9 Chronic kidney disease, unspecified Office Visit 04/08/2019 3:22p [facility] Katey Lopez, K72.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, Assoctheron [...] kidney disease, unspecified Office Visit 04/08/2019 10:39a [facility] Nephrology Marlon Gutierrez N17.9 Acute kidney MD Kisha failure, unspecified Office Visit 04/07/2019 1:48p [facility] Diana Vega MD K72.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, unspecified without coma E72.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, unspecified K75.81 Nonalcoholic steatohepatitis ([place]) I10 Essential (primary) hypertension Office Visit 04/07/2019 9:20a [facility] Nephrology Marlon Gutierrez N17.9 Acute kidney MD Kisha failure, unspecified Office Visit 04/06/2019 1:47p [facility] Rosaline K72.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 , Stocking, [employer] LEAD[employer] unspecified without coma E72.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, unspecified K75.81 Nonalcoholic steatohepatitis ([place]) I10 Essential (primary) hypertension Office Visit 04/05/2019 10:13a [facility] Nephrology Meche An, N17.9 Acute kidney MD failure, unspecified N18.4 Chronic kidney disease, stage 4 (severe) Office Visit 04/05/2019 1:47p [facility] Rosaline K72.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 , Stocking, [employer] LEADER unspecified without coma D63.8 Anemia in other chronic diseases classified elsewhere E72.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, unspecified E87.70 Fluid overload, unspecified Office Visit 04/04/2019 1:47p [facility] Lobo D64.9 Anemia, Assoc,CAMILO Vaughn unspecified Hospitalists N17.9 Acute kidney failure, unspecified K72.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, unspecified without coma K75.81 Nonalcoholic steatohepatitis ([place]) Office Visit 04/04/2019 2:53p [facility] Nephrology Meche An, N17.9 Acute kidney MD failure, unspecified N18.4 Chronic kidney disease, stage 4 (severe) E87.70 Fluid overload, unspecified D63.1 Anemia in chronic kidney disease Office Visit 04/03/2019 2:35p [facility] Nephrology Marlon Gutierrez N17.9 Acute kidney MD Kisha failure, unspecified D63.1 Anemia in chronic kidney disease Office Visit 04/03/2019 1:46p [facility] Lobo D63.1 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,CAMILO Vaughn chronic kidney Hospitalists disease N17.9 Acute kidney failure, unspecified E11.22 Type 2 diabetes mellitus w diabetic chronic kidney disease N18.9 Chronic kidney disease, unspecified Office Visit 04/02/2019 3:11p [facility] D63.1 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,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 Jessica Luther R78.81 Bacteremia Infectious Diseases Mery Bowen I89.0 Lymphedema, not elsewhere classified Office Visit 02/21/2019 [facility] Jessica Valdez, A40.8 Other 1:14p Assoc,pc [employer] WORKER streptococcal Hospitalists sepsis K72.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, unspecified without coma R18.8 Other ascites D63.1 Anemia in chronic kidney disease N18.9 Chronic kidney disease, unspecified 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 chronic kidney 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/unsp [facility] kim E78.5 Hyperlipidemia, unspecified Office Visit 02/20/2019 10:16a [facility] Jessica Luther R78.81 Bacteremia Infectious Diseases Mery Bowen I89.0 Lymphedema, not elsewhere classified Office Visit 02/20/2019 [facility] A49.1 Streptococcal 1:13p Assoc,theron Olivera MD infection, Hospitalists unspecified site D64.9 Anemia, unspecified I86.4 Gastric varices D69.6 Thrombocytopenia, unspecified E11.9 Type 2 diabetes mellitus without complications G89.4 Chronic pain syndrome Office Visit 02/19/2019 [facility] A49.1 Streptococcal 1:13p Assoc,theron Olivera MD infection, Hospitalists unspecified site N17.9 Acute kidney failure, unspecified D64.9 Anemia, unspecified I86.4 Gastric varices D69.6 Thrombocytopenia, unspecified E11.9 Type 2 diabetes mellitus without complications G89.4 Chronic pain syndrome Office Visit 02/18/2019 [facility] Janelle A49.1 Streptococcal 1:12p Assoc,pc Senner, DO infection, Hospitalists unspecified site R65.20 Severe sepsis without septic shock D64.9 Anemia, unspecified N17.9 Acute kidney failure, unspecified D69.6 Thrombocytopenia, unspecified E11.9 Type 2 diabetes mellitus without complications G89.4 Chronic pain syndrome R53.1 Weakness Office Visit 02/17/2019 10:14a [facility] Anmol Luther R78.81 Bacteremia Infectious Diseases Mery Bowen I89.0 Lymphedema, not elsewhere classified E11.22 Type 2 diabetes mellitus w diabetic chronic kidney disease N18.9 Chronic kidney disease, unspecified Office Visit 02/17/2019 1:12p [facility] Janelle Devi, R78.81 Bacteremia Assoc,pc Hospitalists DO R65.20 Severe sepsis without septic shock N17.9 Acute kidney failure, unspecified D64.9 Anemia, unspecified D69.6 Thrombocytopenia, unspecified R53.1 Weakness G89.4 Chronic pain syndrome Office Visit 02/16/2019 [facility] Emily R50.9 Fever, 1:11p Assoc,pc ELOISA Whelan unspecified Hospitalists R53.1 Weakness N17.9 Acute kidney failure, unspecified D64.9 Anemia, unspecified Office Visit 01/03/2019 7:00a [facility] Rizwan Flores, R47.01 Aphasia Q21.1 Atrial septal defect E78.5 Hyperlipidemia, unspecified E66.9 Obesity, unspecified Office Visit 01/03/2019 11:01a [facility] Poppy Heather, G45.9 Transient Assoc,pc [employer] WORKER cerebral ischemic Hospitalists attack, unspecified N17.9 Acute kidney failure, unspecified 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 N18.3 Chronic kidney disease, stage 3 (moderate) Office Visit 01/01/2019 7:00a [facility] Rizwan Flores, R47.01 Aphasia R41.82 Altered mental status, unspecified Office Visit 01/01/2019 [facility] Jessica Valdez, G45.9 Transient 11:01a Assoc,pc [employer] WORKER cerebral ischemic Hospitalists attack, unspecified D69.6 Thrombocytopenia, [...] pain syndrome Cindy Husain MD 04/13/2019 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 Cindy Husain MD 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 Katey Lopez MD [...] failure, unspecified without coma Rosaline Stocking , [employer] LE[employer]ER 04/06/2019 E72.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, Rosaline Stocking, [employer] LE[employer]ER unspecified 04/06/2019 K75.81 Nonalcoholic steatohepatitis ([place]) Rosaline Stocking, [employer]ER 04/06/2019 I10 Essential (primary) hypertension Rosaline Stocking, [employer] LE[employer]ER 04/05/2019 N17.9 Acute kidney failure, unspecified Meche An MD 04/05/2019 K72.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, unspecified without coma Roslaine Stocking , [employer] LE[employer]ER 04/05/2019 N18.4 Chronic kidney disease, stage 4 (severe) Meche An MD 04/05/2019 D63.8 Anemia in other chronic diseases Rosalnie Stocking, [employer] LE[employer]ER classified elsewhere 04/05/2019 E72.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, Rosaline Stocking, [employer] LE[employer] unspecified 04/05/2019 E87.70 Fluid overload, unspecified Rosaline Stocking, [employer]ER 04/04/2019 D64.9 Anemia, unspecified CAMILO Cabezas 04/04/2019 [...] Anemia in chronic kidney disease Araceli Shortle, [employer] WORKER 04/02/2019 N17.9 Acute kidney failure, unspecified Araceli Shortle, [employer] WORKER 04/02/2019 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 chronic kidney disease with Araceli Shortle, [employer] WORKER stage 1 through stage 4 chronic kidney disease, or unspecified chronic kidney disease 04/02/2019 N18.9 Chronic kidney disease, unspecified Araceli Shortle, [employer] WORKER 03/27/2019 N18.4 Chronic kidney disease, stage 4 [...] DO 02/16/2019 R50.9 Fever, unspecified Emily Cleopatra, [employer] WORKER 02/16/2019 R53.1 Weakness Emily Cleopatra, [employer] WORKER 02/16/2019 N17.9 Acute kidney failure, unspecified Emily Cleopatra, [employer] WORKER 02/16/2019 D64.9 Anemia, unspecified Emily Cleopatra, [employer] WORKER 01/03/2019 R47.01 Aphasia Rizwan Flores MD 01/03/2019 Q21.1 Atrial septal defect Rizwan Flores MD 01/03/2019 G45.9 Transient cerebral ischemic attack, Poppy Heather, [employer] WORKER unspecified 01/03/2019 E78.5 Hyperlipidemia, unspecified Rizwan Flores MD 01/03/2019 E66.9 Obesity, unspecified Rizwan Flores MD 01/03/2019 N17.9 Acute kidney failure, unspecified Poppy Heather, [employer] WORKER 01/03/2019 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 chronic kidney disease with Poppy Heather, [employer] WORKER stage 1 through stage 4 chronic kidney disease, or unspecified chronic kidney disease 01/03/2019 N18.3 Chronic kidney disease, stage 3 Poppy Heather, [employer] WORKER (moderate) 01/02/2019 I63.9 Cerebral infarction, unspecified Femi Aguirre M.D. 01/02/2019 G45.9 Transient cerebral ischemic attack, Poppy Heather, [employer] WORKER unspecified 01/02/2019 N18.3 Chronic kidney disease, stage 3 Poppy Heather, [employer] WORKER (moderate) 01/02/2019 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 chronic kidney disease with Poppy Heather, [employer] WORKER stage 1 through stage 4 chronic kidney [...]
--- OUTSIDE RECORDS SUMMARY | 2019-05-13 04:36 | XMS REPORT | Continuity of Care Document ---
:1945 External Reference #:[id number] Author Name Cindy Husain MD (transmitted by agent of provider Leatha Schultz) Address [address] [place] [address] Care Team Providers Name Role Phone Rafat Senior MD - Family Medicine Care Team Information [employer] [address] Judge [phone] Problems Description No Information Available Social History [...] apply twice a day Unknown until resolved. [id number]/GM Cream Allopurinol 1 by mouth every Unknown [...] Unknown 81mg day Tablets DR JERNIGAN Unknown [place]-3 Fish Oil take 1 tab by mouth [...] 138 mmol/L Normal 135-145 1 Panel [address] [place] [address] [phone] Potassium 3.6 mmol/L Normal 3.5-5.0 Chloride 99 [...] Sodium 139 mmol/L Normal 135-145 Panel [address] [place] [address] [phone] Potassium 3.7 mmol/L Normal 3.5-5.0 Chloride 99 [...] mcmol/L High 16-[address] [place] [address] [phone] Laboratory test 04/22/2019 [facility] Pathologist (SEE NOTE) 4, [address] [place] [address] [phone] Manual 04/22/2019 [facility] Neutrophil % 58.0 % Differential [address] [place] [address] [phone] Lymphocytes % 25.0 % Monocytes % 10.0 % Eosinophils % 6.0 % Variant Lymph % 1.0 % Normal 0-6 Hypochromasia 1+ Anisocytosis 2+ Target Cells 1+ Stomatocytes 1+ CBC Auto 04/22/2019 [facility] White Blood 5.7 10^3/uL Normal 3.5-10.[address] [place] [place] [address] [phone] Red Blood Count 2.47 10^6/uL Low 3.70-4.87 [...] 5 mg/dL Low 18-38 6 finding [address] [place] [address] [phone] Basic Metabolic 04/22/2019 [facility] Sodium 139 mmol/L Normal 135-145 Panel [address] [place] [address] [phone] Potassium 4.2 mmol/L Normal 3.5-5.0 Chloride 98 [...] mcmol/L 16- 53 8, 9 finding [address] [place] [address] [phone] Comp Metabolic 04/22/2019 [facility] Sodium 137 mmol/L Normal 135-145 Panel [address] [place] [address] [phone] Potassium 3.9 mmol/L Normal 3.5-5.0 Chloride 97 [...] Type A Positive [address] [place] [address] [phone] Antibody Screen NEGATIVE Laboratory test 04/02/2019 [facility] Packed Cells SEE RESULTS [address] BELO <[place] [address] NOTE> [phone] Urine Culture And 03/27/2019 [facility] Urine Culture SEE RESULT [address] [place], [place] [id number] [phone] Laboratory test 03/27/2019 [facility] Pathologist (SEE NOTE) [address] [place], [place] [id number] [phone] Cell Morphology 03/27/2019 [facility] Macrocytosis 3+ [address] [place] [address] [phone] Anisocytosis 2+ Target Cells 1+ Laboratory test 03/27/2019 [facility] Ferritin 117.2 ng/mL Normal 11-[address] [place], [place] [id number] [phone] B-Type Natriuretic Peptide BNP 839 pg/mL High <=100 Iron & Iron Binding 03/27/2019 [facility] Iron 105 g/dL Normal 50-[address] [place], [place] [address] [phone] Unsaturated Iron Binding < 209 g/dL Total Iron Binding Capacity 224 g/dL Low 250-450 Transferrin 160 mg/dL Low 203-362 % Iron Saturation 47 % Normal 15-55 Laboratory test 03/27/2019 [facility] Hemoglobin A1c 5.1 % Normal 4.0-5.[address] (Glyco HGB) [place], [place] [id number] [phone] Albumin 2.0 g/dL Low 3.2-5.2 Urinalysis Profile 03/27/2019 [facility] Urine Color Yellow [address] [place], [place] [id number] [phone] Urine Appearance Clear Urine Specific Coden 1.012 Normal 1.010-1.030 Urine pH 5.0 Normal [...] mmol/L Normal 135-[address] [place] [address] [phone] Co2 Carbon Dioxide 17 mmol/L Low 22-32 [...] Normal 3.5-10.[address] [place] [place] [address] [phone] Red Blood Count 2.17 10^6/uL Low 3.70-4.87 [...] 43 mg/ dL [address] [place] [address] [phone] Creatinine Random Urine 117.28 mg/dL Laboratory 02/16/2019 [facility] Lactic Acid 5.3 Critical 0.5- 2.0 18 test finding [address] mmol/L high [place], [place] [id number] [phone] Influenza A & 02/16/2019 [facility] Flu AB (SEE 19, B Request [address] Disclaimer NOTE) 20 [place] [address] [phone] Influenza A Molecular NEGATIVE Negative Influenza B Molecular NEGATIVE Negative 21 1 [id number] 2 Because ethnic data is not always [...] 5 Kidney failure <15 (or dialysis) 4 [id number] 5 Macrocytic anemia. Mild thrombocytopenia. No evidence of hemolytic process. Reviewed by Mónica Snow MD 6 [id number] 7 Because ethnic data is not always [...] 5 Kidney failure <15 (or dialysis) 8 [id number] Unable to report test result due [...] ISSUES PER PT 12 SEE RESULTS BELOW [id number] AP PC TRANSFUSED 04/02/19 2324 [id number] AP PC TRANSFUSED 04/03/19 0936 [id number] AP PC TRANSFUSED 04/04/19 0628 [id number] AP PC TRANSFUSED 04/04/19 0935 13 SEE RESULT BELOW Name: BONNIE AGUILERA : [address]: Marlon Beard MD Acct: [id number] Unit: [id number] AGE: 73 Location: LAB Re03/27/19 SEX: F Status: REG REF SPEC: [id number] CORINA: 03/27/19-[address]: Marlon Beard MD REQ: [id number] RECD: 03/27/19-284 STATUS: COMP _ SOURCE: URINE SPDESC: ORDERED: Urine Culture Procedure Result Reported Site Urine Culture Final 03/28/19- 1406 ML No Growth (<1,000 CFU/mL) * ML - Main Lab . END OF REPORT DEPARTMENT OF PATHOLOGY, [address] [place] [address] Nic Weber M.D. Director [facility] # [id number] 14 Moderate macrocytic anemia with thrombocytopenia noted. Clinical correlation suggested. Additional studies is warranted. Reviewed by Dr. Weber 15 Therapeutic target for the treatment of diabetes mellitus patients is <7% HBA1C, and in selective patients <6.0%. Please refer to [place] [employer] diabetic care guidelines for [...] 02/19/19. 18 Critical Result LACT:5.3 Called to [id number] at: 22:01:07 by:[id number] Read back by:[id number] ERICA Severe Sepsis and Septic Shock Management Bundle Measure requires all lactic acids initially measuring >2.0 mmol/L be repeated. Critical Result LACT:5.3 Called to [id number] at: 22:01:07 by:[id number] Read back by:[id number] [facility] Severe Sepsis and Septic Shock Management Bundle Measure requires all lactic acids initially measuring >2.0 mmol/L be repeated. 19 NASAL 20 Suboptimal collection technique may reduce sensitivity of test. Refer to the [facility] Test Catalog for collection information: [email or web address] As with all diagnostic procedures, the laboratory results obtained should be used in conjunction with other clinical information available to the physician, including confirmation by another method, as applicable. 21 Chief Science Officer: [id number] Procedures Date Code Description Status 02/18/2019 24499 Moderate Sedation Services; Same Phys Intl 15 Mins; PT >= Completed 5 Years 02/18/2019 56406 Color Flow Doppler/Interp & Reprt Completed 02/18/2019 56921 Pulse Wave/Continuous-Interp.RPT Completed 02/18/2019 54934 Echocardiography, Transesophageal, Real Time W/Image 2D Completed W/W/O M-M 01/02/2019 64919 ECHO Transthorasic Realtime 2D W Doppler & Color Flow Hosp Completed Medical Devices Description No Information Available Encounters Type Date Location Provider Dx Diagnosis Office Visit 04/18/2019 [facility] Nephrology Meche An MD N17.9 Acute kidney 10:16a failure, unspecified N18.4 Chronic kidney disease, stage 4 (severe) Office Visit 04/16/2019 3:25p [facility] Cindy K72.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, Assoc,pc [...] kidney disease, unspecified Office Visit 04/15/2019 3:25p [facility] Katey Lopez, K72.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, Assoc,pc unspecified Hospitalists without coma N17.9 Acute kidney failure, unspecified D64.9 Anemia, unspecified G89.4 Chronic pain syndrome Office Visit 04/15/2019 10:15a [facility] Nephrology Meche Haynes Negoi, N17.9 Acute kidney MD failure, unspecified Office Visit 04/14/2019 3:25p [facility] K72.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, Asstheron méndez MD unspecified Hospitalists without coma N17.9 Acute kidney failure, unspecified D64.9 Anemia, unspecified K27.9 Peptic ulc, site unsp, unsp as ac or chr, w/o hemor or perf Office Visit 04/14/2019 10:15a [facility] Nephrology Meche G N17.9 Acute kidney MD Juve failure, unspecified Office Visit 04/13/2019 3:24p [facility] K72.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, Assoctheron MD unspecified Hospitalists without coma N17.9 Acute kidney failure, unspecified D64.9 Anemia, unspecified K27.9 Peptic ulc, site unsp, unsp as ac or chr, w/o hemor or perf G89.4 Chronic pain syndrome Z79.4 correction (current) use of insulin E11.9 Type 2 diabetes mellitus without complications Office Visit 04/13/2019 [facility] Nephrology Marlon A. N17.9 Acute kidney 1:52p MD Kisha failure, unspecified Office Visit 04/12/2019 [facility] Nephrology Marlon A. N17.9 Acute kidney 1:52p MD Kisha failure, unspecified Office Visit 04/11/2019 [facility] Nephrology Marlon A. N17.9 Acute kidney 1:52p MD Kisha failure, unspecified Office Visit 04/11/2019 [facility] K72.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, 3:23p theron Escalante MD unspecified Hospitalists without coma N17.9 Acute kidney failure, unspecified D64.9 Anemia, unspecified K27.9 Peptic ulc, site unsp, unsp as ac or chr, w/o hemor or perf G89.4 Chronic pain syndrome Office Visit 04/10/2019 3:23p [facility] K72.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, Assoc,theron Finnegan, D.O. 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 I50.30 Unspecified diastolic (congestive) heart failure E11.9 Type 2 diabetes mellitus without complications Office Visit 04/10/2019 [facility] Nephrology Marlon Gutierrez N17.9 Acute kidney 9:09a MD Kisha failure, unspecified Office Visit 04/09/2019 [facility] Katey Lopez MD K72.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, 3:23p Assoc,pc unspecified Hospitalists without coma D64.9 Anemia, unspecified N17.9 Acute kidney failure, unspecified G89.4 Chronic pain syndrome K27.9 Peptic ulc, site unsp, unsp as ac or chr, w/o hemor or perf 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 I50.30 Unspecified diastolic (congestive) heart failure 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 E11.22 Type 2 diabetes mellitus w diabetic chronic kidney disease N18.9 Chronic kidney disease, unspecified Office Visit 04/08/2019 3:22p [facility] Katey Lopez, K72.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, Assoctheron [...] kidney disease, unspecified Office Visit 04/08/2019 10:39a [facility] Nephrology Marlon Gutierrez N17.9 Acute kidney MD Kisha failure, unspecified Office Visit 04/07/2019 1:48p [facility] Diana Vega MD K72.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, unspecified without coma E72.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, unspecified K75.81 Nonalcoholic steatohepatitis ([place]) I10 Essential (primary) hypertension Office Visit 04/07/2019 9:20a [facility] Nephrology Marlon Gutierrez N17.9 Acute kidney MD Kisha failure, unspecified Office Visit 04/06/2019 1:47p [facility] Rosaline K72.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 , Stocking, WARDROBE MISTRESS unspecified without coma E72.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, unspecified K75.81 Nonalcoholic steatohepatitis ([place]) I10 Essential (primary) hypertension Office Visit 04/05/2019 10:13a [facility] Nephrology Meche An, N17.9 Acute kidney MD failure, unspecified N18.4 Chronic kidney disease, stage 4 (severe) Office Visit 04/05/2019 1:47p [facility] Rosaline K72.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 , Stocking, WARDROBE MISTRESS unspecified without coma D63.8 Anemia in other chronic diseases classified elsewhere E72.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, unspecified E87.70 Fluid overload, unspecified Office Visit 04/04/2019 1:47p [facility] Lobo D64.9 Anemia, Assoc,CAMILO Vaughn unspecified Hospitalists N17.9 Acute kidney failure, unspecified K72.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, unspecified without coma K75.81 Nonalcoholic steatohepatitis ([place]) Office Visit 04/04/2019 2:53p [facility] Nephrology Meche An, N17.9 Acute kidney MD failure, unspecified N18.4 Chronic kidney disease, stage 4 (severe) E87.70 Fluid overload, unspecified D63.1 Anemia in chronic kidney disease Office Visit 04/03/2019 2:35p [facility] Nephrology Marlon Gutierrez N17.9 Acute kidney MD Kisha failure, unspecified D63.1 Anemia in chronic kidney disease Office Visit 04/03/2019 1:46p [facility] Lobo D63.1 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,CAMILO Vaughn chronic kidney Hospitalists disease N17.9 Acute kidney failure, unspecified E11.22 Type 2 diabetes mellitus w diabetic chronic kidney disease N18.9 Chronic kidney disease, unspecified Office Visit 04/02/2019 3:11p [facility] D63.1 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,pc Merari, DIGITIZER chronic kidney Hospitalists disease N17.9 Acute kidney failure, unspecified 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 N18.9 Chronic kidney disease, unspecified Office Visit 03/27/2019 2:00p [facility] Nephrology Marlon Gutierrez N18.4 Chronic kidney MD Kisha disease, stage 4 (severe) K74.60 Unspecified cirrhosis of liver E11.22 Type 2 diabetes mellitus w diabetic chronic kidney disease E87.70 Fluid overload, unspecified R06.02 Shortness of breath Z68.43 Body mass index (BMI) 50.0-59.9, adult Office Visit 02/21/2019 10:17a [facility] Jessica Luther R78.81 Bacteremia Infectious Diseases Mery Bowen I89.0 Lymphedema, not elsewhere classified Office Visit 02/21/2019 [facility] Jessica Valdez, A40.8 Other 1:14p Assoc,pc DIGITIZER streptococcal Hospitalists sepsis K72.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, unspecified without coma R18.8 Other ascites D63.1 Anemia in chronic kidney disease N18.9 Chronic kidney disease, unspecified 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 chronic kidney 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/unsp [facility] kim E78.5 Hyperlipidemia, unspecified Office Visit 02/20/2019 10:16a [facility] Jessica Luther R78.81 Bacteremia Infectious Diseases Mery Bowen I89.0 Lymphedema, not elsewhere classified Office Visit 02/20/2019 [facility] A49.1 Streptococcal 1:13p Assoc,theron Olivera MD infection, Hospitalists unspecified site D64.9 Anemia, unspecified I86.4 Gastric varices D69.6 Thrombocytopenia, unspecified E11.9 Type 2 diabetes mellitus without complications G89.4 Chronic pain syndrome Office Visit 02/19/2019 [facility] A49.1 Streptococcal 1:13p Assoc,theron Olivera MD infection, Hospitalists unspecified site N17.9 Acute kidney failure, unspecified D64.9 Anemia, unspecified I86.4 Gastric varices D69.6 Thrombocytopenia, unspecified E11.9 Type 2 diabetes mellitus without complications G89.4 Chronic pain syndrome Office Visit 02/18/2019 [facility] Janelle A49.1 Streptococcal 1:12p Assoc,pc Senner, DO infection, Hospitalists unspecified site R65.20 Severe sepsis without septic shock D64.9 Anemia, unspecified N17.9 Acute kidney failure, unspecified D69.6 Thrombocytopenia, unspecified E11.9 Type 2 diabetes mellitus without complications G89.4 Chronic pain syndrome R53.1 Weakness Office Visit 02/17/2019 10:14a [facility] Anmol Luther R78.81 Bacteremia Infectious Diseases Mery Bowen I89.0 Lymphedema, not elsewhere classified E11.22 Type 2 diabetes mellitus w diabetic chronic kidney disease N18.9 Chronic kidney disease, unspecified Office Visit 02/17/2019 1:12p [facility] Janelle Devi, R78.81 Bacteremia Assoc,pc Hospitalists DO R65.20 Severe sepsis without septic shock N17.9 Acute kidney failure, unspecified D64.9 Anemia, unspecified D69.6 Thrombocytopenia, unspecified R53.1 Weakness G89.4 Chronic pain syndrome Office Visit 02/16/2019 [facility] Emily R50.9 Fever, 1:11p Assoc,pc ELOISA Whelan unspecified Hospitalists R53.1 Weakness N17.9 Acute kidney failure, unspecified D64.9 Anemia, unspecified Office Visit 01/03/2019 7:00a [facility] Rizwan Flores, R47.01 Aphasia Q21.1 Atrial septal defect E78.5 Hyperlipidemia, unspecified E66.9 Obesity, unspecified Office Visit 01/03/2019 11:01a [facility] Poppy Heather, G45.9 Transient Assoc,pc DIGITIZER cerebral ischemic Hospitalists attack, unspecified N17.9 Acute kidney failure, unspecified 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 N18.3 Chronic kidney disease, stage 3 (moderate) Office Visit 01/01/2019 7:00a [facility] Rizwan Flores, R47.01 Aphasia R41.82 Altered mental status, unspecified Office Visit 01/01/2019 [facility] Jessica Valdez, G45.9 Transient 11:01a Assoc,pc DIGITIZER cerebral ischemic Hospitalists attack, unspecified D69.6 Thrombocytopenia, [...] 04/16/2019 I50.30 Unspecified diastolic (congestive) heart Cindy uHsain MD failure 04/16/2019 K27.9 Peptic ulcer, site [...] syndrome Cindy Husain MD 04/13/2019 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 Cindy Husain MD [...] or perforation 04/11/2019 G89.4 Chronic pain syndrome Isaebl Motta MD 04/10/2019 K72.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, unspecified [...] Katey Lopez MD failure 04/09/2019 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 Katey Lopez [...] failure, unspecified without coma Rosaline Stocking , WARDROBE MISTRESS 04/06/2019 E72.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, Rosaline Stocking, WARDROBE MISTRESS unspecified 04/06/2019 K75.81 Nonalcoholic steatohepatitis ([place]) Rosaline Stocking, WARDROBE MISTRESS 04/06/2019 I10 Essential (primary) hypertension Rosaline Stocking, WARDROBE MISTRESS 04/05/2019 N17.9 Acute kidney failure, unspecified Meche An MD 04/05/2019 K72.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, unspecified without coma Rosaline Stocking , WARDROBE MISTRESS 04/05/2019 N18.4 Chronic kidney disease, stage 4 (severe) Meche An MD 04/05/2019 D63.8 Anemia in other chronic diseases Rosaline Stocking, WARDROBE MISTRESS classified elsewhere 04/05/2019 E72.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, Rosaline Stocking, WARDROBE MISTRESS unspecified 04/05/2019 E87.70 Fluid overload, unspecified Rosaline Stocking, WARDROBE MISTRESS 04/04/2019 D64.9 Anemia, unspecified CAMILO Cabezas 04/04/2019 [...] Anemia in chronic kidney disease Araceli Shortle, DIGITIZER 04/02/2019 N17.9 Acute kidney failure, unspecified Araceli Shortle, DIGITIZER 04/02/2019 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 chronic kidney disease with Araceli Shortle, DIGITIZER stage 1 through stage 4 chronic kidney disease, or unspecified chronic kidney disease 04/02/2019 N18.9 Chronic kidney disease, unspecified Araceli Shortle, DIGITIZER 03/27/2019 N18.4 Chronic kidney disease, stage 4 [...] DO 02/16/2019 R50.9 Fever, unspecified Emily Cleopatra, DIGITIZER 02/16/2019 R53.1 Weakness Emily Cleoparta, DIGITIZER 02/16/2019 N17.9 Acute kidney failure, unspecified Emily Cleopatra, DIGITIZER 02/16/2019 D64.9 Anemia, unspecified Emily Cleopatra, DIGITIZER 01/03/2019 R47.01 Aphasia Rizwan Flores MD 01/03/2019 Q21.1 Atrial septal defect Rizwan Flores MD 01/03/2019 G45.9 Transient cerebral ischemic attack, Poppy Heather, DIGITIZER unspecified 01/03/2019 E78.5 Hyperlipidemia, unspecified Rizwan Flores MD 01/03/2019 E66.9 Obesity, unspecified Rizwan Flores MD 01/03/2019 N17.9 Acute kidney failure, unspecified Poppy Heather, DIGITIZER 01/03/2019 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 chronic kidney disease with Poppy Heather, DIGITIZER stage 1 through stage 4 chronic kidney disease, or unspecified chronic kidney disease 01/03/2019 N18.3 Chronic kidney disease, stage 3 Poppy Heather, DIGITIZER (moderate) 01/02/2019 I63.9 Cerebral infarction, unspecified Femi Aguirre M.D. 01/02/2019 G45.9 Transient cerebral ischemic attack, Poppy Heather, DIGITIZER unspecified 01/02/2019 N18.3 Chronic kidney disease, stage 3 Poppy Heather, DIGITIZER (moderate) 01/02/2019 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 chronic kidney disease with Poppy Heather, DIGITIZER stage 1 through stage 4 chronic kidney [...]
[2019-05-13 04:56] LABS: Hematocrit 29 % (35-47); Hemoglobin 9.7 g/dL (12.0-16.0); Mean Corpuscular HGB Conc 34 g/dL (31-36); Mean Corpuscular Hemoglobin 34 pg (27-31); Mean Corpuscular Volume 101 fL (80-97); Platelet Count 116 10^3/uL (150-450); Red Blood Count 2.84 10^6 /uL (3.70-4.87); Red Cell Distribution Width 22 % (10-15)
--- NOTE | 2019-05-13 05:04 | ED ---
Altered Mental Status - HPI Summary HPI Summary: This pt is a 73 Y/O F presenting to [facility] by EMS with a CC of AMS. Per EMS the pt is currently diabetic and has expressed an altered status when her ammonia levels have been elevated. Her states that the pt has chronic liver and kidney damage. He states that she has lost almost 200 pounds of fluid in the past 30 days. The pt takes 3 20 mls of lactulose a day. She has been doing well in PT and keeping up with her therapies. At 0100 the pt was walking around due to aching leg. The began talking to her tonight and she was unable to answer usual questions that he would ask to figure out her mental status. He called 911 due to her AMS and unusual answers. She had a recent visit to [facility] due to incorrect blood work and her chronic kidney disease. She denies any decrease in appetite, SOB, headaches, N/V, fevers, chills, urinary issues, bowel issues, and fatigue. He states no known aggravating or alleviating factors. She has a PMHx of DM, CHF, CAD, HTN, ESRD, and Liver failure. When asked if she knew where she was she stated 23 and was unable to provide meaningful answers. She is unable to answer any question asked without providing a numerical answer. - History Of Current Complaint Chief Complaint: EDAltMentalStatus Stated Complaint: AMS PER EMS Time Seen by Provider: 05/13/19 04:32 Hx Obtained From: Patient, Family/Senior Shipping Clerk - Last Known Well Date: 05/13/2019 0100 Onset/Duration: Unknown, Still Present Timing: Constant Severity Initially: Moderate Severity Currently: Moderate Character: Confusion Aggravating Factor(s): Unknown Alleviating Factor(s): Unknown Associated Signs And Symptoms: Positive: Negative. Negative: Nausea - decrease in appetite, SOB, chills, urinary issues, bowel issues, and fatigue, Vomiting, Fever, Headache - Allergies/Home Medications Allergies/Adverse Reactions: Allergies Allergy/AdvReac Type Severity Reaction Status Date / Time No Known Allergies Allergy Verified 05/13/19 04:39 Home Medications: Home Medications Ferrous Gluconate TAB* [Fergon TAB*] 324 mg PO DAILY #30 tab 02/21/19 [Rx Confirmed 05/13/19] [place]-3 Fatty Acids (Nf) [Fish Oil (NF)] 1,000 mg PO DAILY 04/02/19 [History Confirmed 05/13/19] Allopurinol TAB* [Zyloprim 100 MG TAB*] 100 mg PO DAILY tab 04/18/19 [Rx Confirmed 05/13/19] Insulin GLARGINE(*) [Lantus 100 units/ml 10 ml VIAL (*)] 8 units SUBCUT Q24H unit 04/18/19 [Rx Confirmed 05/13/19] Lactulose* 20 ml PO TID udc 04/18/19 [Rx Confirmed 05/13/19] Nadolol TAB* [Corgard TAB*] 20 mg PO DAILY tab 04/18/19 [Rx Confirmed 05/13/19] Pantoprazole TAB * [Protonix TAB*] 40 mg PO BID tab 04/18/19 [Rx Confirmed ] Spironolactone TAB* [Aldactone TAB 25 MG*] 50 mg PO DAILY tab 04/18/19 [Rx Confirmed 05/13/19] Torsemide TAB* [Demadex 20 MG*] 40 mg PO DAILY tab 04/18/19 [Rx Confirmed 05/12] Nystatin TOP POWDER* 1 applic TOPICAL BID PRN 05/13/19 [History Confirmed ] Psyllium Husk (with Sugar) [Metamucil] 1 waf PO DAILY 05/13/19 [History Confirmed 05/13/19] PMH/Surg Hx/FS Hx/Imm Hx Previously Healthy: Yes Endocrine/Hematology History: Reports: Hx Blood Transfusions, Hx Diabetes, Hx Anemia Cardiovascular History: Reports: Hx Congenital Heart Disease - Patent foramen ovale, Hx Congestive Heart Failure, Hx Coronary Artery Disease, Hx Hypercholesterolemia, Hx Hypertension, Other Cardiovascular Problems/Disorders - Lymphedema on abdomen Denies: Hx Angina, Hx Myocardial Infarction, Hx Pacemaker/ICD Respiratory History: Denies: Hx Asthma, Hx Chronic Obstructive Pulmonary Disease (COPD) GI History: Reports: Hx Gastroesophageal Reflux Disease, Hx Gastrointestinal Bleed - Gastric antral vascular ecstasia, Hx Ulcer - Peptic ulcer disease, Other GI Disorders - non alcoholic cirrhosis, ascites, esophageal varices History: Reports: Hx Acute Renal Failure, Hx Chronic Renal Failure - Chronic renal fx r/t naproxen Denies: Hx Dialysis Musculoskeletal History: Reports: Hx Arthritis - knees, Hx Back Problems, Hx Gout, Hx Osteoporosis Sensory History: Reports: Hx Cataracts, Hx Contacts or Glasses, Hx Vision Problem, Hx Hearing Problem Denies: Hx Eye Injury, Hx Eye Prosthesis, Hx Glaucoma, Hx Legally Blind, Hx Macular Degeneration, Hx Deafness, Hx Hearing Aid, Other Sensory Impairments Opthamlomology History: Reports: Hx Cataracts, Hx Contacts or Glasses, Hx Vision Problem Denies: Hx Eye Injury, Hx Eye Prosthesis, Hx Glaucoma, Hx Legally Blind, Hx Macular Degeneration, Other Sensory Impairments Neurological History: Reports: Hx Transient Ischemic Attacks (TIA), Other Neuro Impairments/Disorders - Restless Leg Syndrome Denies: Hx Dementia, Hx Seizures Psychiatric History: Denies: Hx Panic Disorder - Cancer History Cancer Type, Location and Year: BRAIN TUMOR S/P 30 YRS Hx Chemotherapy: No Hx Radiation Therapy: No - Surgical History Surgical History: Yes Surgery Procedure, Year, and Place: Tonsillectomy, catarats - Immunization History Immunizations Up to Date: Yes Infectious Disease History: No Infectious Disease History: Denies: Hx Hepatitis, Hx of Known/Suspected MRSA, Hx Shingles, Hx Tuberculosis, Hx Known/Suspected VRE, Hx Known/Suspected VRSA, Traveled Outside the [place] in Last 30 Days - Family History Known Family History: Positive: Cardiac Disease - [place] - Social History Occupation: Retired Lives: With Family Alcohol Use: None Hx Substance Use: No Substance Use Type: Reports: None Substance Use Comment - Amount & Last Used: unknown Hx Tobacco Use: No Smoking Status (MU): Never Smoked Tobacco Review of Systems Negative: Fever, Chills Negative: Shortness Of Breath Gastrointestinal: Negative - decrease in appetite, abnormal bowel movements Negative: Vomiting, Nausea Genitourinary: Negative Neurological/Mental Status: Other - AMS Negative: Headache Psychological: Other All Other Systems Reviewed And Are Negative: Yes Physical Exam - Summary Physical Exam Summary: Appearance: Well-appearing, Well-nourished, lying in bed comfortably Skin: Warm, dry, no obvious rash Eyes: sclera anicteric, no conjunctival pallor ENT: mucous membranes moist, pharynx appears normal Neck: Supple, nontender Respiratory: Clear to auscultation, no signs of respiratory distress Cardiovascular: Normal S1, S2. No murmurs. Normal distal pulses in tibial and radial bilaterally. Abdomen: Soft, nontender, normal active bowel sounds present, No significant ascites Musculoskeletal: Normal, Strength/ROM Intact, No pitting edema Neurological: A&Ox3, awake and alert, mentation is normal, speech is fluent and appropriate, Awake and alert, responds to questions but to most questions she answers 24 or 25. She has no asterixis, her extremities are normal without clonus Psychiatric: affect is normal, does not appear anxious or depressed Triage Information Reviewed: Yes Vital Signs On Initial Exam: Initial Vitals Temp Pulse Resp BP Pulse Ox 99.3 F 89 18 173/85 100 05/13/19 04:27 05/13/19 04:27 05/13/19 04:27 05/13/19 04:27 05/13/19 04:27 Vital Signs Reviewed: Yes Procedures - Sedation Patient Received Moderate/Deep Sedation with Procedure: No Diagnostics - Vital Signs Vital Signs Temp Pulse Resp BP Pulse Ox 05/13/19 04:27 99.3 F 89 18 173/85 100 - Laboratory Lab Results: Lab Results 05/13/19 Range/Units 04:49 WBC 6.0 (3.5-10.8) 10^3/uL RBC 2.84 L (3.70-4.87) 10^6 /uL Hgb 9.7 L (12.0-16.0) g/dL Hct 29 L (35-47) % MCV 101 H (80-97) fL MCH 34 H (27-31) pg MCHC 34 (31-36) g/dL RDW 22 H (10-15) % Plt Count 116 L (150-450) 10^3/uL MPV 9.0 (7.4-10.4) fL Neut % (Auto) Pending Lymph % (Auto) Pending [place] % (Auto) Pending Eos % (Auto) Pending Baso % (Auto) Pending Absolute Neuts (auto) Pending Absolute Lymphs (auto) Pending Absolute Monos (auto) Pending Absolute Eos (auto) Pending Absolute Basos (auto) Pending Absolute Nucleated RBC Pending Nucleated RBC % Pending Result Diagrams: 05/13/19 04:49 05/13/19 04:49 Lab Statement: Any lab studies that have been ordered have been reviewed, and results considered in the medical decision making process. - EKG 0441 Cardiac Rate: NL - 75 EKG Rhythm: Sinus Rhythm ST Segment: Normal Ectopy: None Summary of EKG Findings: An EKG at 0441 reveals NSR 75 BPM, nml axis, nml intervals. No STEMI. No acute changes. Interpreted by Dr. Black at 0443 2019. Altered Mental Statu Course/Dx - Course Course Of Treatment: This pt is a 73 Y/O F presenting to [facility] by EMS with a CC of AMS. Per EMS the pt is currently diabetic and has expressed an altered status when her ammonia levels have been elevated. Her states that the pt has chronic liver and kidney damage. He states that she has lost almost 200 pounds of fluid in the past 30 days. The pt takes 3 20 mls of lactulose a day. She has been doing well in PT and keeping up with her therapies. At 0100 the pt was walking around due to aching leg. The began talking to her tonight and she was unable to answer usual questions that he would ask to figure out her mental status. He called 911 due to her AMS and unusual answers. She had a recent visit to [facility] due to incorrect blood work and her chronic kidney disease. When asked if she knew where she was she stated 23 and was unable to provide meaningful answers. She is unable to answer any question asked without providing a numerical answer. Her PE found No significant ascites, no pitting edema, she is awake and alert, responds to questions but to most questions she answers 24 or 25. She has no asterixis, her extremities are normal without clonus. Her Ammonia is 261. She is increasing in AMS. An EKG at 0441 reveals NSR 75 BPM, nml axis, nml intervals. No STEMI. No acute changes. She will be admitted to [facility] with a Dx of hepatic encephalopathy. - Diagnoses Provider Diagnoses: Hepatic encephalopathy - Provider Notifications Discussed Care Of Patient With: Cindy Husain Time Discussed With Above Provider: 06:27 Instructed by Provider To: Admit As Inpatient Admit/Transition Orders Completed By ED Provider: Yes Discharge ED - Sign-Out/Discharge Documenting (check all that apply): Patient Departure - admitted - Discharge Plan Condition: Good Disposition: ADMITTED TO [facility] - Billing Disposition and Condition Condition: GOOD Disposition: Admitted to [facility] - Attestation Statements Document Initiated by Scribe: Yes Documenting Scribe: Shukri Poon Provider For Whom Scribe is Documenting (Include Credential): Romulo Black MD Scribe Attestation: Shukri Dunbar, scribed for Romulo Black MD on 05/13/19 at 2033. Scribe Documentation Reviewed: Yes Provider Attestation: The documentation as recorded by the Shukri bryant accurately reflects the service I personally performed and the decisions made by me, Romulo Black MD Status of Scribaleida Document: Viewed
[2019-05-13 05:15] LABS: Albumin 2.6 g/dL (3.2-5.2); Albumin/Globulin Ratio 0.6 (1-3); Calcium 9.5 mg/dL (8.6-10.3); EGFR African American 28.7 (>60); EGFR Non-African American 23.7 (>60); Globulin 4.7 g/dL (2-4); Potassium 3.5 mmol/L (3.5-5.0); Total Protein 7.3 g/dL (6.4-8.9)
[2019-05-13 05:16] LABS: Troponin I 0.02 ng/mL (<0.03)
[2019-05-13 05:36] LABS: TSH (Thyroid Stimulating Horm) 2.32 mcIU/mL (0.34-5.60)
[2019-05-13] MEDS ORDERED: Lorazepam PYXIS KEY PRN ×3 (06:24→12:59)
[2019-05-13] MEDS ORDERED: LORazepam INJ* 2 MG/ML 1 ML VIAL IM ONE (06:24)
[2019-05-13] MEDS ORDERED: Lorazepam PYXIS KEY ONE (06:28)
[2019-05-13 08:20] LABS: ABS Basophils 0.1 10^3/ul (0-0.2); ABS Eosinophils 0.3 10^3/ul (0-0.6); ABS Lymphocytes 1.6 10^3/ul (1.0-4.8); ABS Monocytes 0.7 10^3/ul (0-0.8); ABS Neutrophils 3.3 10^3/ul (1.5-7.7); Eosinophil % 5.6 %; Lymphocyte % 26.5 %
[2019-05-13] MEDS ORDERED: Nystatin TOP POWDER* 15 GM BTL TOPICAL PRN (08:25)
[2019-05-13] MEDS ORDERED: Potassium Chloride* LIQUID 20 MEQ/15 ML UDC PO ONE (08:31)
[2019-05-13] MEDS ORDERED: Dextrose 50% Syringe 50 ML* 25 GM/50 ML SYRINGE IV PUSH PRN (09:02)
[2019-05-13 10:18] LABS: Hepatitis B Surface Antigen Nonreactive (Nonreactive)
--- NOTE | 2019-05-13 10:28 | HP ---
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 History is taken from her and from ED notes as patient is not able to participate given her mental status.. According to , patient woke up around 1:00 AM because she had discomfort on her leg and was lying on a couch. She was talking inappropriate at that time and it seemed different so he called EMS and came to [facility]. Patient was hospitatlized in [facility] for HE and UGIB and discharged to [facility] on 04/18/2019. She was discharged to home on 05/01/19. She was taking her medication as prescribed and has never missed the dose. She is having 3-5 BM everyday. Her tells that me that her Blood glucose has been running high in 200-350 but never been low. No history of fever, abdominal pain, nausea, vomiting, cough, seizures. ED Course IN ED, her vitals were stable; mildly hypertensive. Patient was alert but giving inappropriate answers. EKG at 0441 reveals NSR 75 BPM, nml axis, nml intervals. No acute changes. Blood work showed Hb 9.7, Plt 116, Creatinine 2.05 , Bilirubin 2.00, AST 97, ALt 57, ALP 234, Ammonia 261 and Serum Alcohol 11. She has worsening AMS in ED and was given Ativan and lactulose. - Past Medical History Past Medical History: 1. Decompensated Cirrhosis- Hepatic Encephalopathy, Varices, GAVE 2. Hyppertension 3. CKD 4. IDDM 5. Anemia 6. GERD - Past Surgical History Past Surgical History: 1. Tonsillectomy 2. 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 Father had history of [place] at age 70 and also had Diabetes. - Past Social History Past Social History: Patient is and lives with her - Lj Hankins who is also her HCP. Denies smoking, alcohol and drug use. Patient is DNR/DNI. Medications: Home Medications Medication Instructions Recorded Confirmed Type Ferrous Gluconate TAB* [Fergon 324 mg PO DAILY #30 tab 02/21/19 05/13/19 Rx TAB*] Abbott-3 Fatty Acids (Nf) [Fish Oil 1,000 mg PO DAILY 04/02/19 05/13/19 History (NF)] Allopurinol TAB* [Zyloprim 100 MG 100 mg PO DAILY tab 04/18/19 05/13/19 Rx TAB*] Insulin GLARGINE(*) [Lantus 100 8 units SUBCUT Q24H unit 04/18/19 05/13/19 Rx units/ml 10 ml VIAL (*)] Lactulose* 20 ml PO TID udc 04/18/19 05/13/19 Rx Nadolol TAB* [Corgard TAB*] 20 mg PO DAILY tab 04/18/19 05/13/19 Rx Pantoprazole TAB * [Protonix TAB*] 40 mg PO BID tab 04/18/19 05/13/19 Rx Spironolactone TAB* [Aldactone TAB 50 mg PO DAILY tab 04/18/19 05/13/19 Rx 25 MG*] Torsemide TAB* [Demadex 20 MG*] 40 mg PO DAILY tab 04/18/19 05/13/19 Rx Nystatin TOP POWDER* 1 applic TOPICAL BID PRN 05/13/19 05/13/19 History Psyllium Husk (with Sugar) 1 waf PO DAILY 05/13/19 05/13/19 History [Metamucil] Allergies/Adverse Reactions: Allergies Allergy/AdvReac Type Severity Reaction Status Date / Time No Known Allergies Allergy Verified 05/13/19 04:39 Review of Systems - Review of Systems Constitutional: Negative: Fever, Chills, Sweats, Weakness, Malaise, Other Eyes: Negative: Pain, Vision Change, Conjunctivae Inflammation, Eyelid Inflammation, Redness, Other ENT: Negative: Ear Pain, Ear Discharge, Nose Pain, Nose Discharge, Nose Congestion, Mouth Pain, Mouth Swelling, Throat Pain, Throat Swelling, Other Respiratory: Negative: Cough, Dry, Shortness of Breath, Hemoptysis, SOB with Excertion, Pleuritic Pain, Sputum, Wheezing Cardiovascular: Negative: Chest Pain, Palpitations, Orthopnea, Paroxysmal Noc. Dyspnea, Edema, Light Headedness, Other Gastrointestinal: Negative: Nausea, Vomiting, Abdominal Pain, Diarrhea, Constipation, Melena, Hematochezia, Other Genitourinary: Negative: Dysuria, Frequency, Incontinence, Hematuria, Retention , Other Musculoskeletal: Negative: Neck Pain, Shoulder Pain, Arm Pain, Back Pain, Hand Pain, Leg Pain, Foot Pain, Other Skin: Negative: Rash, Lesions, Vinny, Bruising, Other Neurological/Mental Status: Positive: Confusion - History is from patient Exam Vital Signs: Vital Signs (72 hours) 05/13/19 05/13/19 05/13/19 04:27 04:53 05:11 Temperature 99.3 F Pulse Rate 89 71 71 Respiratory 18 40 35 Rate Blood Pressure 173/85 186/61 (mmHg) O2 Sat by Pulse 100 100 100 Oximetry 05/13/19 05/13/19 05/13/19 06:00 06:01 06:30 Temperature Pulse Rate Respiratory 17 16 20 Rate Blood Pressure 162/70 (mmHg) O2 Sat by Pulse Oximetry 05/13/19 05/13/19 05/13/19 06:52 07:00 07:23 Temperature Pulse Rate 74 81 Respiratory 17 19 14 Rate Blood Pressure 125/62 156/71 (mmHg) O2 Sat by Pulse 99 99 Oximetry 05/13/19 05/13/19 05/13/19 08:00 08:40 09:00 Temperature Pulse Rate 69 Respiratory 17 14 17 Rate Blood Pressure 151/72 (mmHg) O2 Sat by Pulse 98 Oximetry 05/13/19 05/13/19 05/13/19 09:37 09:56 10:10 Temperature 97.7 F 97.5 F Pulse Rate 79 76 78 Respiratory 15 16 16 Rate Blood Pressure 113/78 181/94 113/78 (mmHg) O2 Sat by Pulse 100 100 100 Oximetry Exam: Appearance: Well-appearing, Well-nourished, agitated Skin: Warm, dry, Eyes: sclera anicteric, no conjunctival pallor ENT: mucous membranes moist, pharynx appears normal Neck: Supple, nontender Respiratory: Clear to auscultation, no signs of respiratory distress Cardiovascular: Normal S1, S2. Systolic Murmur heard. Normal distal pulses in tibial and radial bilaterally. Abdomen: Soft, nontender, normal active bowel sounds present, Obese belly with chronic skin changes to difficult to assess for ascites Musculoskeletal: Normal, Strength/ROM Intact, Neurological: Has astrexis. awake but no alert and agitated Result Diagrams: 05/13/19 04:49 05/13/19 04:49 Additional Lab and Data: Lab Results 05/13/19 Range/Units 04:49 WBC 6.0 (3.5-10.8) 10^3/uL RBC 2.84 L (3.70-4.87) 10^6 /uL Hgb 9.7 L (12.0-16.0) g/dL Hct 29 L (35-47) % MCV 101 H (80-97) fL MCH 34 H (27-31) pg MCHC 34 (31-36) g/dL RDW 22 H (10-15) % Plt Count 116 L (150-450) 10^3/uL MPV 9.0 (7.4-10.4) fL Neut % (Auto) Pending Lymph % (Auto) Pending [place] % (Auto) Pending Eos % (Auto) Pending Baso % (Auto) Pending Absolute Neuts (auto) Pending Absolute Lymphs (auto) Pending Absolute Monos (auto) Pending Absolute Eos (auto) Pending Absolute Basos (auto) Pending Absolute Nucleated RBC Pending Nucleated RBC % Pending Assessment/Plan - Assessment/Plan Assessment: This is a 73 F with PMH of Decompensated Cirrhosis 2/2 GODFREY, CKD,HTN, IDDM, Anemia presented with altered mental status. FOund to be in Hepatic Encephalopathy.D/D: Metabolic encephalopathy, Infectious, Plan: 1. Hepatic Encephalopathy: Elevated Ammonia with symptoms 2/2 to Cirrhosis. She was medically optimized and was adherent to her medication. Exact precipitating factor unknown; Normal electrolytes, No e/o GI bleed, hypovolemia and no progression of CKD. We will treat her with Lactulose and Rifaximin. SHe should have 2-3 soft BM everyday. IF patient remains agitated then we will put NG tube with some sedation and give meds through it. Meanwhile we will also rule out other ppt factors- blood clots, infections. Examination for ascites is really challenging given her body habitus so we will do US abdomen and if any fluid present we will do paracentesis. If US cannot be done then we will treat prophylactically. We will also do GI consult. Her Meld-Na score is 22. 2. Decompensated Cirrhosis: Decompensated by HE, portal Hypertension. See above. Continue torsemide, spironolactone and Nadolol. Avoid hepatotoxic agents. 3. Anemia: Her Hb stable is now and there is no current evidence of GI bleed. She is on PPI for gastric inflammation. 4. Hypertension: Her BP is on higher side. We will continue home medication and add IV hydralazine p.r.n. 5. IDDM: She is currently on Insulin Glargine 8 U daily. Her A1c was 5.1 on 2019. According to her BG is running high at home. We will do fructosamine test and put her on lispro and calculate insulin requirement accordingly. 6. CKD: Creatinine at baseline. Avoid nephrotoxic drug. 7. Gout: On allopurinol. 8. DVT prophylaxis: Patient had GI bleed within 1 month and received 5U PRBC on last hospitalization. SCD for now. 9. DNR/DNI Attestation Documenting Resident: Kalia Supervising Physician: Marito Attending/Supervising Physician Comment: Ms. Hankins has a recent admission for decompensated GODFREY cirrhosis related to an upper GI bleed and presents today from home with delirium noted by her and is found to have physical exam findings and lab findings consistent with hepatic encephalopathy. The cause of her decompensation is unclear--no evidence of infection, bleeding; will rule out portal vein thrombosis and ascites with US with doppler. Treat empirically for now for SBP since her abdominal exam is challenging to evaluation of ascites. She is too encephalopathic to take oral rifaxamin or lactulose at this time--is refusing, hitting/scratching her nurse, and even when her came to assist in redirecting her, we were unsuccessful at convincing her to take medications. Unfortunately it is necessary to gently sedate her with lorazepam so that we can draw labs. If INR is acceptable, will place NG tube cautiously (h/o varices ) in order to administer rifaxamin and lactulose. If unsuccessful, she will need a lactulose enema. GI consult appreciated. DNR, guarded prognosis. Attestation: This service has been performed in part by a resident under the direction of a teaching physician.Marito Dunbar, performed the service, or was physically present during the critical, or st portions of the service, furnished by the resident. I participated in the management of the patient.
[2019-05-13] MEDS: [UNRECOGNIZED DRUG - OTHER] PO SCH (10:34)
[2019-05-13 10:35] LABS: Hepatitis B Surface Ab Not Immune (Immune)
[2019-05-13 10:36] LABS: Hepatitis C Antibody Negative (Negative)
[2019-05-13] MEDS: Allopurinol TAB* 100 MG PO SCH (10:50)
[2019-05-13] MEDS: Pantoprazole TAB * 40 MG TAB PO SCH ×2 (10:50→23:17)
[2019-05-13] MEDS: Nadolol TAB* 40 MG PO SCH (10:50)
[2019-05-13] MEDS: RiFAXimin* 550 MG TAB PO SCH ×3 (11:00→17:31)
[2019-05-13] MEDS: Torsemide TAB* 20 MG PO SCH ×2 (11:00→11:11)
[2019-05-13] MEDS ORDERED: hydrALAZINE IV* 20 MG/ML VIAL IV SLOW PU PRN (11:00)
[2019-05-13] MEDS: Spironolactone TAB* 25 MG PO SCH ×2 (11:00→11:11)
[2019-05-13] MEDS ORDERED: LORazepam INJ* 2 MG/ML 1 ML VIAL IV PUSH PRN (11:25)
[2019-05-13] MEDS: Insulin LISPRO* 1 UNITS UNIT SUBCUT SCH ×2 (12:17→18:22)
[2019-05-13] MEDS: Insulin GLARGINE(*) 1 UNITS UNIT SUBCUT SCH (12:18)
[2019-05-13] MEDS: LORazepam INJ* 2 MG/ML 1 ML VIAL IV PUSH PRN ×3 (13:18→21:29)
[2019-05-13 14:09] LABS: INR 1.29 (0.82-1.09)
--- NOTE | 2019-05-13 18:32 | CONS ---
GASTROENTEROLOGY CONSULT: DATE: CONSULTING PHYSICIANS: Rafat Senior, Janelle Devi.* REASON FOR CONSULTATION: Unexplained exacerbation of hepatic encephalopathy with ammonia 251. HISTORY: This 73-year-old woman with super morbid obesity in the past, hypertension, type 2 diabetes, chronic renal disease, cirrhosis presumably secondary to GODFREY has been in and out of the hospital repeatedly since December when she had a TIA. She had an unexplained worsening of renal function in early March with her creatinine 4.87 on admission 04/02/19,and with empiric treatment for presumed hepatorenal syndrome with IV albumin, octreotide,and diuretics, her creatinine fell to 2.21 over 16 days, at which time she was transferred to [facility]. She was there about 2 weeks following the discharge medical regimen, which included lactulose 20 mL 3 times a day which her flavors with sugar free cranberry flavor. She was then transferred home and was receiving regular physical therapy visits and nursing visits for assessments and her would supervise meds and help with meals. He says that she was up ambulating without a walker and seemed to be slowly improving. Yesterday, she went through the full list of planned activities and had no complaints. She ate lunch and dinner without any indiscretions he can recall. She went to bed without any complaints. Today at 1 a.m., her discovered she was out of bed and was confused. She was brought to the emergency room by ambulance at 4 in the morning and had stable vitals with blood pressure 173/85, pulse 80, and she was afebrile. Since admission, there has been an attempt to give her the normal lactulose dose and add in rifaximin. She has been refusing both. She is able to sit up and insists on remaining that way, but has a vacant stare and no meaningful communication. She will mumble when stimulated, but nothing more. Again, her says she was taking her usual meds at home. There was no vomiting, cough, complaint of pain, fever, or rectal bleeding. There have been no other wopo-yla-ualgnkh meds or recent antibiotics. PAST MEDICAL HISTORY: 1. Morbid obesity - maximum weight 391 a couple of years ago. There was never really any defined dietary program explaining the weight loss to 212 currently ( [facility] bed weight). 2. Lymphedema, legs and lower abdominal panniculus. 3. Diabetes - highest A1c, February 2014, 6.9. now about 5 4. Cirrhosis - extensive upper abdominal gastrosplenic collaterals seen in August [address] of the abdomen ordered by Dr. Vidales; platelets low 5. History of gastric ulcers mar [address] Vera - she was on Aleve multiple daily doses. 6. Renal insufficiency - followed by Dr. Beard here in Nephrology - best Cr 2020 2.05 ert 7. History of stroke or TIA in December 2018. 8. Anemia - GI Bleeding - no overt bleeding though stool was heme positive twice recently; she was admitted on 04/22/19 with hemoglobin of 6.8 and did go down to 6.4, and thus, Gastroenterology was consulted and she underwent upper endoscopy, which showed on therapy small gastric varices and a fairly impressive portal changes in the antrum, which felt to represent GAVE, and thus , she was put on PPI treatment. She received 5 units transfusion during that hospital stay, which was on top of 2 units that were transfused 2018 and 2 units March 2014 for a lifetime total of 9 units. Ferritin level on 04/02/19 was 120 and B12 greater than 1450. Erythropoietin December 9. Tricuspid insufficiency - beta natriuretic peptide values 643, greater than 1300, and 839 collected within a 3-month interval December 2018 to February this year. MEDICATIONS: As an outpatient 1. Torsemide 20. 2. Spironolactone 25. 3. Nadolol 20. 4. Allopurinol 100. 5. Psyllium husk daily. 6. 8 units of Lantus daily. 7. Ferrous gluconate 324 daily. REVIEW OF SYSTEMS: It is notable that at an admission around [facility], , transesophageal echo did show normal LV function, but also significant tricuspid regurgitation. There is no history of GA, syncope, or overt congestive failure. No history of TB, hemoptysis, viral hepatitis, or recent NSAID use. No history of abdominal surgery. EXAM: She is a chronically ill-appearing woman, essentially bald with a few amy of hair to the temples, sitting in bed, inattentive and not communicating , although she wishes to stay upright. She resists lying down and is examined upright. She will not take in any fluid. An hour ago, an attempt was made to start an NG tube, and then when that failed, Ativan was used to sedate her and this also failed. Breath sounds are heard bilaterally, but she will not breathe to command and it is difficult to be sure of the findings, although she does not seem short of breath and there is no rhonchi or coughing. Heart sounds are regular. Breasts are without overt masses. The abdomen has a panniculus with significant lymphedema that is chronic. She complains with deep palpation bilaterally. Rectal is not possible. Extremities show chronic venous edema changes bilaterally symmetrically. There are no areas of cellulitis. IMPRESSION: This chronically-ill 73-year-old woman presents with clinically defined GODFREY cirrhosis has hepatic encephalopathy with an ammonia that is higher than any previous elevation. The cause is not clear as she is not clearly infected, not bleeding, and has not been on any new meds and electrolytes seem as desired. The precipitous presentation would be more in line with a circulatory issue (elevated BNP?) as opposed to infection, though I agree with empirically covering her for the possibility of spontaneous bacterial peritonitis. The elevation in BNP and alkaline phosphatase and the tricuspid abnormality noted at transesophageal echocardiogram lead to wondering about passive congestion exacerbating underlying nonalcoholic steatohepatitis related cirrhosis. As regards to the practical issue of getting lactulose into her, her current stalemate situation is a unique challenge. It seems inevitable that she will either improve spontaneously somewhat to allow lactulose to be taken orally or deteriorate whereby an NG tube will be possible to infuse the lactulose that way. Electively using deeper sedation or anesthesia to get in the lactulose does not make sense to me. [id number]/[facility] #: [id number] CYDNEY
[2019-05-13] MEDS: cefTRIAXone(*) 1 GM in NS 0.9% 50 ML* 50 ML IVPB SCH (21:33)
[2019-05-13] MEDS: RiFAXimin* 550 MG TAB G TUBE SCH (23:17)
[2019-05-14 04:24] LABS: Urine Appearance Clear; Urine Bilirubin Negative (Negative); Urine Blood 1+ (Negative); Urine Color Yellow; Urine Glucose 1+(50 mg/dL) (Negative); Urine Ketones Negative (Negative); Urine Nitrite Negative (Negative); Urine Protein 1+(30 mg/dL) (Negative); Urine Specific Gravity 1.008 (1.010-1.030); Urine Urobilinogen Negative (Negative)
[2019-05-14 04:26] LABS: Urine Bacteria Absent (Absent); Urine Red Blood Cell Trace(0-2/hpf) (Absent); Urine White Blood Cell Trace(0-5/hpf) (Absent)
[2019-05-14 05:50] LABS: ABS Basophils 0.1 10^3/ul (0-0.2); ABS Eosinophils 0.3 10^3/ul (0-0.6); ABS Lymphocytes 1.8 10^3/ul (1.0-4.8); ABS Neutrophils 4.6 10^3/ul (1.5-7.7); Eosinophil % 3.3 %; Hematocrit 27 % (35-47); Hemoglobin 9.3 g/dL (12.0-16.0); Lymphocyte % 23.5 %; Mean Corpuscular HGB Conc 34 g/dL (31-36); Mean Corpuscular Hemoglobin 35 pg (27-31); Mean Corpuscular Volume 102 fL (80-97); Mean Platelet Volume 9.8 fL (7.4-10.4); Nucleated Red Blood Cells % 0.1; Platelet Count 109 10^3/uL (150-450); Red Blood Count 2.66 10^6 /uL (3.70-4.87); Red Cell Distribution Width 21 % (10-15); White Blood Count 7.7 10^3/uL (3.5-10.8)
[2019-05-14 06:10] LABS: Albumin 2.3 g/dL (3.2-5.2); Albumin/Globulin Ratio 0.5 (1-3); BUN/Creatinine Ratio 23.5 (8-20); Calcium 9.6 mg/dL (8.6-10.3); EGFR African American 28.9 (>60); EGFR Non-African American 23.9 (>60); Globulin 4.3 g/dL (2-4); Potassium 3.4 mmol/L (3.5-5.0); Total Protein 6.6 g/dL (6.4-8.9)
[2019-05-14] MEDS: Insulin GLARGINE(*) 1 UNITS UNIT SUBCUT SCH (09:44)
[2019-05-14] MEDS: Insulin LISPRO* 1 UNITS UNIT SUBCUT SCH ×3 (09:46→17:24)
[2019-05-14] MEDS: Pantoprazole TAB * 40 MG TAB PO SCH ×2 (09:47→22:04)
[2019-05-14] MEDS: Spironolactone TAB* 25 MG PO SCH (09:47)
[2019-05-14] MEDS: Nadolol TAB* 40 MG PO SCH (09:49)
[2019-05-14] MEDS: RiFAXimin* 550 MG TAB G TUBE SCH (09:49)
[2019-05-14] MEDS: [UNRECOGNIZED DRUG - OTHER] PO SCH (09:51)
[2019-05-14] MEDS: Allopurinol TAB* 100 MG PO SCH (09:59)
[2019-05-14] MEDS: Torsemide TAB* 20 MG PO SCH (10:01)
--- NOTE | 2019-05-14 16:59 | PN ---
Subjective Date of Service: 05/14/19 Interval History: HD 2 on 05/13 This is a 73 F with PMH of Decompensated Cirrhosis 2/2 GODFREY, CKD,HTN, IDDM, Anemia presented with altered mental status. FOund to be in Hepatic Encephalopathy. Also found to have transaminitis with elevated ALP and elevated serum alcohol level. Overnight: pulled NG tube out; re-inserted again 2 BM yesterday Patient seen and examined at bedside. Patient more alert and oriented today. She recognised me and looked happy. She denies any discomfort and pain at present. Denies alcohol use or any missed medication and being sick. Objective Active Medications: Allopurinol (Zyloprim Tab*) 100 mg PO DAILY [facility] Last Admin: 05/14/19 09:59 Dose: 100 mg Dextrose (D50w Syringe 50 Ml*) 12.5 gm IV PUSH .FOR FS < 60 - SS PRN PRN Reason: FS < 60 Hydralazine HCl (Apresoline Iv*) 5 mg IV SLOW PU Q6H PRN PRN Reason: SBP>180 Last Admin: 05/13/19 12:18 Dose: 5 mg Ceftriaxone Sodium 1 gm/ (Sodium Chloride) 50 mls @ 100 mls/hr IVPB Q24H [facility] Last Admin: 05/13/19 21:33 Dose: 100 mls/hr Insulin Glargine (Lantus(*)) 8 units SUBCUT Q24H [facility] Last Admin: 05/14/19 09:44 Dose: 8 units Insulin Human Lispro (Humalog*) 0 units SUBCUT AC CRISTIAN; Protocol Last Admin: 05/14/19 12:56 Dose: 3 units Lactulose (Lactulose*) 30 ml PO TID [facility] Lorazepam (Ativan Inj*) 0.5 mg IV PUSH Q4H PRN PRN Reason: ANXIETY Last Admin: 05/13/19 21:29 Dose: 0.5 mg Miscellaneous (Ativan Pyxis Read) 1 ea N/A .ATIVAN IV READ PRN PRN Reason: PYXIS READ Nadolol (Corgard Tab*) 20 mg PO DAILY [facility] Last Admin: 05/14/19 09:49 Dose: 20 mg Non-Formulary Medication (Psyllium Husk (With Sugar) [Metamucil Fiber Thin]) 1 waf PO DAILY [facility] Last Admin: 05/14/19 09:51 Dose: Not Given Nystatin (Nystatin Top Powder*) 1 applic TOPICAL BID PRN PRN Reason: Skin irritation Pantoprazole Sodium (Protonix Tab*) 40 mg PO BID [facility] Last Admin: 05/14/19 09:47 Dose: 40 mg Rifaximin (Xifaxan*) 550 mg PO BID [facility] Spironolactone (Aldactone Tab*) 50 mg PO DAILY [facility] Last Admin: 05/14/19 09:47 Dose: 50 mg Torsemide (Demadex*) 40 mg PO DAILY [facility] Last Admin: 05/14/19 10:01 Dose: 40 mg Vital Signs - 8 hr 05/14/19 05/14/19 11:15 11:37 Temperature 97.1 F 97.1 F Pulse Rate 66 64 Respiratory 16 18 Rate Blood Pressure 142/58 111/39 (mmHg) O2 Sat by Pulse 100 100 Oximetry Oxygen Devices in Use Now: None Exam: Appearance: Well-appearing, Well-nourished, No acute distress Skin: Warm, dry, yellowish Eyes: sclera icteric, no conjunctival pallor ENT: mucous membranes moist, pharynx appears normal Neck: Supple, nontender Respiratory: Clear to auscultation, no signs of respiratory distress Cardiovascular: Normal S1, S2. Systolic Murmur heard. Normal distal pulses in tibial and radial bilaterally. Abdomen: Soft, nontender, normal active bowel sounds present, Obese belly with chronic skin changes to difficult to assess for ascites Musculoskeletal: Normal, Strength/ROM Intact, Neurological: Has astrexis.alert and oriented Result Diagrams: 05/14/19 05:41 05/14/19 05:41 Additional Lab and Data: Lab Results 05/13/19 Range/Units 04:49 WBC 6.0 (3.5-10.8) 10^3/uL RBC 2.84 L (3.70-4.87) 10^6 /uL Hgb 9.7 L (12.0-16.0) g/dL Hct 29 L (35-47) % MCV 101 H (80-97) fL MCH 34 H (27-31) pg MCHC 34 (31-36) g/dL RDW 22 H (10-15) % Plt Count 116 L (150-450) 10^3/uL MPV 9.0 (7.4-10.4) fL Neut % (Auto) Pending Lymph % (Auto) Pending [place] % (Auto) Pending Eos % (Auto) Pending Baso % (Auto) Pending Absolute Neuts (auto) Pending Absolute Lymphs (auto) Pending Absolute Monos (auto) Pending Absolute Eos (auto) Pending Absolute Basos (auto) Pending Absolute Nucleated RBC Pending Nucleated RBC % Pending Assess/Plan/Problems-Billing Assessment: This is a 73 F with PMH of Decompensated Cirrhosis 2/2 GODFREY, CKD,HTN, IDDM, Anemia presented with altered mental status. FOund to be in Hepatic Encephalopathy. Also found to have transaminitis with elevated ALP and elevated serum alcohol level. Improving with lactulose and rifaximin - Patient Problems (1) Hepatic encephalopathy Current Visit: No Status: Acute Code(s): K72.90 - HEPATIC FAILURE, UNSPECIFIED WITHOUT COMA SNOMED Code(s): 30128329 Comment: -Elevted ammonia with altered mental status - No focal deficit to indicate CVA -Improving today -No clear precipitating factor seen- could be failing lactulose; NO e/o GI bleed , infection, worsening renal failure -her serum alcohol is 11; although denies alcohol intake- not sure if this could be the ppt factor. -received lactulose and rifaximin through NG tube; patient more alert and oriented today; NG tube removed -need to have 2-3 soft stools per day (2) Decompensated hepatic cirrhosis Current Visit: No Status: Acute Code(s): K72.90 - HEPATIC FAILURE, UNSPECIFIED WITHOUT COMA SNOMED Code(s): 271599665 Comment: -with HE, secondary to GODFREY. - MELD-Na score is 22 which carries 7-10% risk of mortality in 90 days. -Portal HTN- Nadolol(low- dose), torsemide and spironolactone -HE: lactulose, rifaximin -SBP prophylaxis: Iv ceftriaxone(started on 05/12)- for total of 7 days -appreciate GI input -avoid hepatotoxic drugs (3) Anemia Current Visit: No Status: Acute Code(s): D64.9 - ANEMIA, UNSPECIFIED SNOMED Code(s): 161820072 Comment: -received 5U PRBC on last hospital stay - from gastric varices and PUD - PPI BID -Hb low but stable -flora monitor (4) CKD (chronic kidney disease), stage III Current Visit: No Status: Acute Code(s): N18.3 - CHRONIC KIDNEY DISEASE, STAGE 3 (MODERATE) SNOMED Code(s): 374069522 Comment: - baseline creatinine is 2.05 (5) Chronic pain syndrome Current Visit: No Status: Acute Code(s): G89.4 - CHRONIC PAIN SYNDROME SNOMED Code(s): 907583062 Comment: - Continue reduced dose oxycodone- 5 mg -has chronic back and knee pain (6) Transaminitis Current Visit: Yes Status: Acute Code(s): R74.0 - NONSPEC ELEV OF LEVELS OF TRANSAMNS & LACTIC ACID DEHYDRGNSE SNOMED Code(s): 748598792 Comment: -presented with elevated LFT and ALP from baseline -serum alcohol 11; denies alcohol use though- this could be ppt cause -alt, ast downtrending -US liver nondiagnostic because of body habitus -will trend (7) Heart failure with preserved ejection fraction Current Visit: No Status: Acute Code(s): I50.30 - UNSPECIFIED DIASTOLIC ( CONGESTIVE) HEART FAILURE SNOMED Code(s): 742641406 Comment: -Echo in 12/2018 shows Ef of 60-65% with grade 2 diastolic dysfunction. -Mild dilatation of atrium. -Mild -Has patent foramen ovale. -No e/o volume overload at preesent (8) History of gout Current Visit: No Status: Acute Code(s): Z87.39 - PERSONAL HISTORY OF DISEASES OF THE MS SYS AND CONN TISS SNOMED Code(s): 425127206 Comment: - Continue allopurinol- renally dosed (9) Hypertension Current Visit: No Status: Acute Code(s): I10 - ESSENTIAL (PRIMARY) HYPERTENSION SNOMED Code(s): 17811612 Comment: -Continue torsemide and spironolactone -iv hydralazine prn (10) TIA (transient ischemic attack) Current Visit: No Status: Acute Code(s): G45.9 - TRANSIENT CEREBRAL ISCHEMIC ATTACK, UNSPECIFIED SNOMED Code(s): 781116725 Comment: - History TIA -Not on AC given recent bleed (11) Diabetes mellitus Current Visit: No Status: Chronic Code(s): E11.9 - TYPE 2 DIABETES MELLITUS WITHOUT COMPLICATIONS SNOMED Code(s): 46097003 Comment: - A1c is 5.1 on feb 2019 -on lantus 8 U and continue sliding scale. -elevated fructosamine -will re-calculate insulin requirement based on today's dose (12) DVT prophylaxis Current Visit: No Status: Acute Priority: Medium Onset Date: 03/19/14 Code(s): WWD1613 - SNOMED Code(s): 161508884 Comment: - No chemical DVT prophylaxis in GI bleeding - SCDs (13) DNR (do not resuscitate) Current Visit: No Status: Acute Comment: Status and Disposition: Inpatient Attending: Janelle Devi Attestation Documenting Resident: Adamaris Supervising Physician: Marito Attending/Supervising Physician Comment: Remarkably improved today. Cheerfully recognizes us and greets us pleasantly and appropriately. Etiology of decompensation remains unclear--without evidence of bleed, infection, volume overload/dysfunction. Portal vein thrombosis is certainly a possibility and we are unable to rule it out due to incomplete doppler study due to body habitus. Must have rifaxamin at home in addition to rifaxamin. Goal to discharge her tye; hopefully tomorrow. Attestation: This service has been performed in part by a resident under the direction of a teaching physician.IMarito, performed the service, or was physically present during the critical, or read portions of the service, furnished by the resident. I participated in the management of the patient.
[2019-05-14] MEDS: cefTRIAXone(*) 1 GM in NS 0.9% 50 ML* 50 ML IVPB SCH (18:13)
[2019-05-14] MEDS: RiFAXimin* 550 MG TAB PO SCH (22:04)
[2019-05-15 05:59] LABS: ABS Basophils 0.1 10^3/ul (0-0.2); ABS Eosinophils 0.4 10^3/ul (0-0.6); ABS Lymphocytes 2.5 10^3/ul (1.0-4.8); ABS Monocytes 0.8 10^3/ul (0-0.8); ABS Neutrophils 3.5 10^3/ul (1.5-7.7); Eosinophil % 5.7 %; Hematocrit 23 % (35-47); Hemoglobin 7.7 g/dL (12.0-16.0); Lymphocyte % 33.9 %; Mean Corpuscular HGB Conc 34 g/dL (31-36); Mean Corpuscular Hemoglobin 34 pg (27-31); Mean Corpuscular Volume 101 fL (80-97); Mean Platelet Volume 9.9 fL (7.4-10.4); Nucleated Red Blood Cells % 0.1; Platelet Count 107 10^3/uL (150-450); Red Blood Count 2.25 10^6 /uL (3.70-4.87); Red Cell Distribution Width 21 % (10-15); White Blood Count 7.2 10^3/uL (3.5-10.8)
[2019-05-15 06:14] LABS: Albumin 2.1 g/dL (3.2-5.2); Albumin/Globulin Ratio 0.6 (1-3); Calcium 8.6 mg/dL (8.6-10.3); EGFR African American 23.7 (>60); EGFR Non-African American 19.6 (>60); Globulin 3.5 g/dL (2-4); Magnesium 1.7 mg/dL (1.9-2.7); Potassium 3.6 mmol/L (3.5-5.0); Total Bilirubin 1.8 mg/dL (0.2-1.0); Total Protein 5.6 g/dL (6.4-8.9)
[2019-05-15] MEDS ORDERED: Magnesium Sulfate 2 GM IV* 2 GM/50 ML BAG IVPB ONE (06:58)
[2019-05-15] MEDS: Nadolol TAB* 40 MG PO SCH (09:18)
[2019-05-15] MEDS: Torsemide TAB* 20 MG PO SCH (09:19)
[2019-05-15] MEDS: RiFAXimin* 550 MG TAB PO SCH (09:19)
[2019-05-15] MEDS: [UNRECOGNIZED DRUG - OTHER] PO SCH (09:19)
[2019-05-15] MEDS: Allopurinol TAB* 100 MG PO SCH (09:19)
[2019-05-15] MEDS: Pantoprazole TAB * 40 MG TAB PO SCH (09:19)
[2019-05-15] MEDS: Spironolactone TAB* 25 MG PO SCH (09:19)
[2019-05-15] MEDS: Insulin LISPRO* 1 UNITS UNIT SUBCUT SCH ×2 (09:19→12:41)
[2019-05-15] MEDS: Insulin GLARGINE(*) 1 UNITS UNIT SUBCUT SCH (09:20)
[2019-05-15 09:52] LABS: Hematocrit 24 % (35-47); Hemoglobin 8.2 g/dL (12.0-16.0); Mean Corpuscular HGB Conc 34 g/dL (31-36); Mean Corpuscular Hemoglobin 35 pg (27-31); Mean Corpuscular Volume 101 fL (80-97); Mean Platelet Volume 10.4 fL (7.4-10.4); Platelet Count 105 10^3/uL (150-450); Red Blood Count 2.39 10^6 /uL (3.70-4.87); Red Cell Distribution Width 20 % (10-15); White Blood Count 6.8 10^3/uL (3.5-10.8)
--- NOTE | 2019-05-15 13:34 | DS ---
Resident Discharge Summary Discharge Summary: Date of Admission: 05/13/19 Date of Discharge: 05/15/2019 Admitting MD: Dallas Francisco MD Attending MD: Janelle Devi DO Primary Care Physician: Rafat Senior MD Medications on Discharge Medication Instructions Recorded Confirmed Type Ferrous Gluconate TAB* [Fergon 324 mg PO DAILY #30 tab 02/21/19 05/13/19 Rx TAB*] [place]-3 Fatty Acids (Nf) [Fish Oil 1,000 mg PO DAILY 04/02/19 05/13/19 History (NF)] Allopurinol TAB* [Zyloprim 100 MG 100 mg PO DAILY tab 04/18/19 05/13/19 Rx TAB*] Nadolol TAB* [Corgard TAB*] 20 mg PO DAILY tab 04/18/19 05/13/19 Rx Pantoprazole TAB * [Protonix TAB*] 40 mg PO BID tab 04/18/19 05/13/19 Rx Spironolactone TAB* [Aldactone TAB 50 mg PO DAILY tab 04/18/19 05/13/19 Rx 25 MG*] Torsemide TAB* [Demadex 20 MG*] 40 mg PO DAILY tab 04/18/19 05/13/19 Rx Nystatin TOP POWDER* 1 applic TOPICAL BID PRN 05/13/19 05/13/19 History Psyllium Husk (with Sugar) 1 waf PO DAILY 05/13/19 05/13/19 History [Metamucil Fiber Thin] Insulin GLARGINE(*) [Lantus 100 10 units SUBCUT DAILY #1 vial 05/15/19 Rx units/ml 10 ml VIAL (*)] Lactulose* 30 ml PO TID #1 bottle 05/15/19 Rx RiFAXimin* [Xifaxan*] 550 mg PO BID #60 tab 05/15/19 Rx Disposition: Home Condition: Improved Primary Diagnosis: 1. Hepatic Encephalopathy 2. Hypertension 3. Decompensated Cirrhosis Secondary Diagnosis: 1. CKD stage 3 2. 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 Chronic pain syndrome 4. Transaminitis 5. Heart Failure with preserved Ejection Fraction 6. History of TIA 7. Insulin Dependent Diabetes Mellitus Diagnostic Imagin. Portal Vein US: Noncontributory given body habitus. 2. Chest Xray: Ng tube within stomach. Vascular Congestion is likely present. Pertinent Laboratory Results: At the time of discharge, her labs were Hb 8.2, Platelet 105, Na 134, K 3.6, Creatinine 2.42, Blood glucose 261, magnesium 1.7(repleted), Bilirubin 1.8. Hospital Course: This is pleasant 73 F with past medical history of Decompensated Cirrhosis secondary to GODFREY, CKD, HFpEF, Anemia secondary to GI bleed, IDDM and gout presented with altered mental status. For details, please review H and P. But, in short patient was found to be in Hepatic Encephalopathy with Ammonia level of 261. Her hospital course by problem is: 1. Hepatic Encephalopathy: Patient was altered and was agitated. She received lactulose and Rifaximin through NG tube. She showed drastic improvement next day and NG tube was removed. We could not find clear precipitating factor- could be failed lactulose. We consulted GI and recommended same treatment. We ruled out GI bleed as stool OBT was negative. We did US liver to rule out ascites and PVT but US was nondiagnostic. 2. Decompensated Cirrhosis: HE was treated as above and we continued all her home meds for Cirrhosis. 3. Hypertension: Patient received her home medications. Her BP was high at times and also required Hydralazine IV. 4. Diabetes: Patient is using Insulin glargine 8 U daily at home. But according to patient her BG has been high around 300's at home. We calculated daily insulin requirement and increased her Insulin lantus to 10 U daily. At the time of discharge, patient is ambulating well, tolerating PO well, alert and oriented with no asterixis. Her vitals are stable and she is asymptomatic. CONSULTATION DURING THIS HOSPITAL STAY: GI Follow Up Instructions: THINGS TO FOLLOW UP STATUS POST DISCHARGE 1. Patient should follow up with her PCP for BP and blood glucose and medication should be adjusted accordingly. 2. Her lactulose can be titrated accordingly, based on number of stools per day. She should have 2-3 soft stools per day.
[2019-05-15 16:29] VITALS: BP 111/37
[2019-05-16] MEDS ORDERED: Insulin GLARGINE(*) 1 UNITS UNIT SUBCUT SCH (08:00)
== END 2019-05-15 16:30 | disposition home or self-care (01) | DRG 442 ==
LOC: ED 04:26 → MED 08:19
PROVIDERS: ADMIT Internal Medicine; ATTEND Internal Medicine
DX: K72.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, unspecified without coma (principal); I13.0 Hypertensive heart and chronic kidney disease with heart failure and stage 1 through stage 4 chronic kidney disease, or unspecified chronic kidney disease; I50.30 Unspecified diastolic (congestive) heart failure; I10 Essential (primary) hypertension; K74.60 Unspecified cirrhosis of liver; E11.22 Type 2 diabetes mellitus with diabetic chronic kidney disease; N18.3 Chronic kidney disease, stage 3 (moderate); G89.4 Chronic pain syndrome; E66.01 Morbid (severe) obesity due to excess calories; R74.0 Nonspecific elevation of levels of transaminase and lactic acid dehydrogenase [LDH]; Z66 Do not resuscitate; K75.81 Nonalcoholic steatohepatitis (NASH); M10.9 Gout, unspecified; I07.1 Rheumatic tricuspid insufficiency; D64.9 Anemia, unspecified; K21.9 Gastro-esophageal reflux disease without esophagitis; Z82.49 Family history of ischemic heart disease and other diseases of the circulatory system; Z83.3 Family history of diabetes mellitus; Z79.4 Long term (current) use of insulin; Z79.899 Other long term (current) drug therapy; Z68.33 Body mass index [BMI] 33.0-33.9, adult; Z86.73 Personal history of transient ischemic attack (TIA), and cerebral infarction without residual deficits
CPT/HCPCS: 36415; 71045; 80053; 80320; 80329; 81003; 81015; 82105; 82140; 82270; 82985; 83605; 83735; 84443; 84484; 85025; 85027; 85060; 85610; 86706; 86803; 87040; 87086; 87340; 93005; 93975; 96372; 99284; A9270-GY; G0480; J0360; J0696; J2060; J3475

== ENCOUNTER 2019-06-09 08:30 | Emergency (ER) | payer MEDICARE ==
--- OUTSIDE RECORDS SUMMARY | 2019-06-09 08:42 | XMS REPORT | Continuity of Care Document ---
:1945 External Reference #:[id number] Author Name Isabel Motta MD (transmitted by agent of provider Leatha Schultz) Address 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 [id number]/GM Cream Allopurinol 1 by mouth every Unknown [...] Unknown 81mg day Tablets DR JERNIGAN Unknown Marshall-3 Fish Oil take 1 tab by mouth [...] Result H/L Range Note Basic Metabolic 04/29/2019 [facility] Sodium 138 mmol/L Normal 135-145 1 [address] [place] [address] [phone] Potassium 3.6 mmol/L Normal 3.5-5.0 Chloride 99 mmol/L Low 101-111 Co2 Carbon Dioxide 32 mmol/L Normal 22-32 Anion Gap 7 mmol/L Normal 2-11 Glucose 193 mg/dL High 70-100 Blood Urea Nitrogen 33 mg/dL High 6-24 Creatinine 1.86 mg/dL High 0.51-0.95 BUN/Creatinine Ratio 17.7 Normal 8-20 Calcium 8.3 mg/dL Low 8.6-10.3 Egfr Non- 26.6 >60 Egfr 32.1 >60 2 Comp Metabolic 04/23/2019 [facility] Sodium 139 mmol/L Normal 135-145 Panel [address] [place] [address] [phone] Potassium 3.7 mmol/L Normal 3.5-5.0 Chloride 99 [...] Egfr 28.7 >60 3 Laboratory test 04/23/2019 [facility] Ammonia 86 mcmol/L High 16-[address] [place] [address] [phone] Laboratory test 04/22/2019 [facility] Pathologist (SEE NOTE) 4, [address] [place] [address] [phone] Manual 04/22/2019 [facility] Neutrophil % 58.0 % Differential [address] [place] [address] [phone] Lymphocytes % 25.0 % Monocytes % 10.0 % Eosinophils % 6.0 % Variant Lymph % 1.0 % Normal 0-6 Hypochromasia 1+ Anisocytosis 2+ Target Cells 1+ Stomatocytes 1+ CBC Auto 04/22/2019 [facility] White Blood 5.7 10^3/uL Normal 3.5-10.[address] [place] [address] [phone] Red Blood Count 2.47 10^6/uL Low 3.70-4.87 [...] Blood Cells % 0.0 Laboratory test 04/22/2019 [facility] Prealbumin 5 mg/dL Low 18-38 6 finding [address] [place] [address] [phone] Basic Metabolic 04/22/2019 [facility] Sodium 139 mmol/L Normal 135-145 Panel [address] [place] [address] [phone] Potassium 4.2 mmol/L Normal 3.5-5.0 Chloride 98 mmol/L Low 101-111 Co2 Carbon Dioxide 33 mmol/L High 22-32 Anion Gap 8 mmol/L Normal 2-11 Glucose 176 mg/dL High 70-100 Blood Urea Nitrogen 42 mg/dL High 6-24 Creatinine 2.08 mg/dL High 0.51-0.95 BUN/Creatinine Ratio 20.2 High 8-20 Calcium 8.9 mg/dL Normal 8.6-10.3 Egfr Non- 23.3 >60 Egfr 28.2 >60 7 Laboratory test 04/22/2019 [facility] Ammonia TNP mcmol/L 16- 53 8, 9 finding [address] [place] [address] [phone] Comp Metabolic 04/22/2019 [facility] Sodium 137 mmol/L Normal 135-145 Panel [address] [place] [address] [phone] Potassium 3.9 mmol/L Normal 3.5-5.0 Chloride 97 [...] 28.9 >60 10 Type & Screen 04/02/2019 [facility] Patient Blood Type A Positive [address] [place] [address] [phone] Antibody Screen NEGATIVE Laboratory test 04/02/2019 [facility] Packed Cells SEE RESULTS [address] BELO <[place] [address] NOTE> [phone] Urine Culture And 03/27/2019 [facility] Urine Culture SEE RESULT [address] [place] [address] [phone] Laboratory test 03/27/2019 [facility] Pathologist (SEE NOTE) [address] [place] [address] [phone] Cell Morphology 03/27/2019 [facility] Macrocytosis 3+ [address] [place] [address] [phone] Anisocytosis 2+ Target Cells 1+ Laboratory test 03/27/2019 [facility] Ferritin 117.2 ng/mL Normal 11-[address] [place] [address] [phone] B-Type Natriuretic Peptide BNP 839 pg/mL High <=100 Iron & Iron Binding 03/27/2019 [facility] Iron 105 g/dL Normal 50-[address] [place] [address] [phone] Unsaturated Iron Binding < 209 g/dL Total Iron Binding Capacity 224 g/dL Low 250-450 Transferrin 160 mg/dL Low 203-362 % Iron Saturation 47 % Normal 15-55 Laboratory test 03/27/2019 [facility] Hemoglobin A1c 5.1 % Normal 4.0-5.[address] (Glyco HGB) [place] [address] [phone] Albumin 2.0 g/dL Low 3.2-5.2 Urinalysis Profile 03/27/2019 [facility] Urine Color Yellow [address] [place] [address] [phone] Urine Appearance Clear Urine Specific Levasy 1.012 Normal 1.010-1.030 Urine pH 5.0 Normal [...] Cell Present Abnormal Absent Basic Metabolic 03/27/2019 [facility] Sodium 138 mmol/L Normal 135-[address] [place] [address] [phone] Co2 Carbon Dioxide 17 mmol/L Low 22-32 Glucose 110 mg/dL High 70-100 Blood Urea Nitrogen 52 mg/dL High 6-24 Creatinine 5.41 mg/dL High 0.51-0.95 BUN/Creatinine Ratio 9.6 Normal 8-20 Calcium 8.3 mg/dL Low 8.6-10.3 Egfr Non- 7.7 >60 Egfr 9.4 >60 16 Potassium 5.5 mmol/L High 3.5-5.0 Chloride 113 mmol/L High 101-111 Anion Gap 8 mmol/L Normal 2-11 CBC Auto 03/27/2019 [facility] White Blood 6.7 10^3/uL Normal 3.5-10.[address] [place] [address] [phone] Red Blood Count 2.17 10^6/uL Low 3.70-4.87 [...] Blood Cells % 0.2 Neph Routine 03/27/2019 [facility] Total Protein Random 43 mg/ dL [address] [place] [address] [phone] Creatinine Random Urine 117.28 mg/dL Laboratory 02/16/2019 [facility] Lactic Acid 5.3 Critical 0.5- 2.0 18 test finding [address] mmol/[place] [address] [phone] Influenza A & 02/16/2019 [facility] Flu AB (SEE 19, B Request [address] Disclaimer NOTE) 20 [place] [address] [phone] Influenza A Molecular NEGATIVE Negative Influenza B Molecular NEGATIVE Negative 21 1 [id number] 2 Because ethnic data is not always [...] 5 Kidney failure <15 (or dialysis) 4 [id number] 5 Macrocytic anemia. Mild thrombocytopenia. No evidence of hemolytic process. Reviewed by Mónica Snow MD 6 [id number] 7 Because ethnic data is not always [...] 5 Kidney failure <15 (or dialysis) 8 [id number] 9 Unable to report test result due [...] ISSUES PER PT 12 SEE RESULTS BELOW [id number] AP PC TRANSFUSED 04/02/19 2324 [id number] AP PC TRANSFUSED 04/03/19 0936 [id number] AP PC TRANSFUSED 04/04/19 0628 [id number] AP PC TRANSFUSED 04/04/19 0935 13 SEE RESULT BELOW Name: BONNIE AGUILERA : [address]: Marlon Beard MD Acct: [id number] Unit: [id number] AGE: 73 Location: LAB Re03/27/19 SEX: F Status: REG REF SPEC: [id number] CORINA: 03/27/19-[address]: Marlon Beard MD REQ: [id number] RECD: 03/27/19802 STATUS: COMP _ SOURCE: URINE SPDESC: ORDERED: Urine Culture Procedure Result Reported Site Urine Culture Final 03/28/19- 1406 ML No Growth (<1,000 CFU/mL) * ML - Main Lab . END OF REPORT DEPARTMENT OF PATHOLOGY, [address] [place] [address] Nic Weber M.D. Director [facility] # [id number] 14 Moderate macrocytic anemia with thrombocytopenia noted. Clinical correlation suggested. Additional studies is warranted. Reviewed by Dr. Weber 15 Therapeutic target for the treatment of diabetes mellitus patients is <7% HBA1C, and in selective patients <6.0%. Please refer to [place] [employer] diabetic care guidelines for further [...] 02/19/19. 18 Critical Result LACT:5.3 Called to [id number] at: 22:01:07 by:[id number] Read back by:[id number] [facility] Severe Sepsis and Septic Shock Management Bundle Measure requires all lactic acids initially measuring >2.0 mmol/L be repeated. Critical Result LACT:5.3 Called to [id number] at: 22:01:07 by:[id number] Read back by:[id number] [facility] Severe Sepsis and Septic Shock Management Bundle Measure requires all lactic acids initially measuring >2.0 mmol/L be repeated. 19 NASAL 20 Suboptimal collection technique may reduce sensitivity of test. Refer to the [facility] Test Catalog for collection information: [email or web address] As with all diagnostic procedures, the laboratory results obtained should be used in conjunction with other clinical information available to the physician, including confirmation by another method, as applicable. 21 Voicer: [id number] Procedures Date Code Description Status 02/18/2019 16836 Moderate Sedation Services; Same Phys Intl 15 Mins; PT >= Completed 5 Years 02/18/2019 59744 Color Flow Doppler/Interp & Reprt Completed 02/18/2019 71414 Pulse Wave/Continuous-Interp.RPT Completed 02/18/2019 11610 Echocardiography, Transesophageal, Real Time W/Image 2D Completed W/W/O M-M 01/02/2019 68337 ECHO Transthorasic Realtime 2D W Doppler & Color Flow Hosp Completed Medical Devices Description No Information Available Encounters Type Date Location Provider Dx Diagnosis Office Visit 05/14/2019 [facility] Janelle Devi, K72.90 Hepatic failure, 2:10p Assoc,pc DO unspecified Hospitalists without coma K75.81 Nonalcoholic steatohepatitis ([place]) I50.30 Unspecified diastolic (congestive) heart failure 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 N18.3 Chronic kidney disease, stage 3 (moderate) E11.22 Type 2 diabetes mellitus w diabetic chronic kidney disease G89.4 Chronic pain syndrome D64.9 Anemia, unspecified Office Visit 05/13/2019 [facility] Maikol Pandey K72.90 Hepatic failure, 7:00a MD Wesley unspecified without coma K75.81 Nonalcoholic steatohepatitis ([place]) Office Visit 05/13/2019 2:09p [place] Mohit Luis R41.82 Altered mental Assoc,theron Devi, DO status, Hospitalists unspecified 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 D64.9 Anemia, unspecified 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 N18.9 Chronic kidney disease, unspecified Office Visit 04/29/2019 9:00a [place] Celina Puckett A Cator, R54 Age- related physical MD debility N18.4 Chronic kidney disease, stage 4 (severe) D63.1 Anemia in chronic kidney disease K74.60 Unspecified cirrhosis of liver K29.61 Other gastritis with bleeding R18.8 Other ascites E11.22 Type 2 diabetes mellitus w diabetic chronic kidney disease Z68.43 Body mass index (BMI) 50.0-59.9, adult Office Visit 04/21/2019 9:30a [place] Celina Puckett A Cator, R54 Age- related physical MD debility N18.4 Chronic kidney disease, stage 4 (severe) D63.1 Anemia in chronic kidney disease K74.60 Unspecified cirrhosis of liver K29.61 Other gastritis with bleeding R18.8 Other ascites K72.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, unspecified without coma E11.22 Type 2 diabetes mellitus w diabetic chronic kidney disease Z68.43 Body mass index (BMI) 50.0-59.9, adult Office Visit 04/18/2019 [facility] K72.90 Hepatic failure, 3:26p Assoc,theron Motta MD unspecified Hospitalists without coma N17.9 Acute kidney failure, unspecified I50.9 Heart failure, unspecified D64.9 Anemia, unspecified E11.9 Type 2 diabetes mellitus without complications G89.29 Other chronic pain Office Visit 04/18/2019 10:16a [facility] Meche An, N17.9 Acute kidney MD failure, unspecified N18.4 Chronic kidney disease, stage 4 (severe) Office Visit 04/17/2019 [facility] K72.90 Hepatic failure, 3:26p Assoc,theron Motta MD unspecified Hospitalists without coma N17.9 Acute kidney failure, unspecified D64.9 Anemia, unspecified G89.4 Chronic pain syndrome Office Visit 04/16/2019 3:25p [facility] K72.90 Hepatic failure, Assoc,theron Husain MD unspecified [...] Chronic kidney disease, unspecified Office Visit 04/15/2019 10:15a [facility] Meche Haynes N17.9 Acute kidney MD Juve failure, unspecified Office Visit 04/15/2019 3:25p [facility] Katey Lopez, K72.90 Hepatic failure, Assoctheron MD unspecified Hospitalists without coma N17.9 Acute kidney failure, unspecified D64.9 Anemia, unspecified G89.4 Chronic pain syndrome Office Visit 04/14/2019 [facility] K72.90 Hepatic failure, 3:25p theron Escalante MD unspecified Hospitalists without coma N17.9 Acute kidney failure, unspecified D64.9 Anemia, unspecified K27.9 Peptic ulc, site unsp, unsp as ac or chr, w/o hemor or perf Office Visit 04/14/2019 10:15a [facility] Meche Haynes N17.9 Acute kidney MD Juve failure, unspecified Office Visit 04/13/2019 3:24p [facility] K72.90 Hepatic failure, Assoctheron MD unspecified Hospitalists without coma N17.9 Acute kidney failure, unspecified D64.9 Anemia, unspecified K27.9 Peptic ulc, site unsp, unsp as ac or chr, w/o hemor or perf G89.4 Chronic pain syndrome Z79.4 long term care social worker (current) use of insulin E11.9 Type 2 diabetes mellitus without complications Office Visit 04/13/2019 [facility] Marlon Gutierrez N17.9 Acute kidney 1:52p MD Kisha failure, unspecified Office Visit 04/12/2019 [facility] K72.90 Hepatic failure, 3:24p theron Escalante MD unspecified Hospitalists without coma D64.9 Anemia, unspecified N17.9 Acute kidney failure, unspecified K27.9 Peptic ulc, site unsp, unsp as ac or chr, w/o hemor or perf G89.4 Chronic pain syndrome Office Visit 04/12/2019 [facility] Marlon Gutierrez N17.9 Acute kidney 1:52p MD Kisha failure, unspecified Office Visit 04/11/2019 [facility] K72.90 Hepatic failure, 3:23p theron Escalante MD unspecified Hospitalists without coma N17.9 Acute kidney failure, unspecified D64.9 Anemia, unspecified K27.9 Peptic ulc, site unsp, unsp as ac or chr, w/o hemor or perf G89.4 Chronic pain syndrome Office Visit 04/11/2019 [facility] Marlon Gutierrez N17.9 Acute kidney 1:52p MD Kisha failure, unspecified Office Visit 04/10/2019 [facility] K72.90 Hepatic failure, 3:23p ,theron Finnegan D.O. 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 Katey Lopez MD K72.90 Hepatic failure, 3:23p Assocpc unspecified Hospitalists without coma D64.9 Anemia, unspecified N17.9 Acute kidney failure, unspecified G89.4 Chronic pain syndrome K27.9 Peptic ulc, site unsp, unsp as ac or chr, w/o hemor or perf 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 I50.30 Unspecified diastolic (congestive) heart failure Z79.4 longterm (current) use of insulin E11.22 Type 2 diabetes mellitus w diabetic chronic kidney disease N18.9 Chronic kidney disease, unspecified Office Visit 04/08/2019 3:22p [facility] Katey Lopez K72.90 Hepatic failure, Asstheron méndez MD unspecified [...] kidney disease, unspecified Office Visit 04/08/2019 10:39a [facility] Marlon Gutierrez N17.9 Acute kidney MD Kisha failure, unspecified Office Visit 04/07/2019 9:20a [facility] Marlon Gutierrez N17.9 Acute kidney MD Kisha failure, unspecified Office Visit 04/07/2019 1:48p [facility] Diana Vega MD K72.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, unspecified without coma E72.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, unspecified K75.81 Nonalcoholic steatohepatitis ([place]) I10 Essential (primary) hypertension Office Visit 04/06/2019 1:47p [facility] Rosaline K72.90 Hepatic failure , Stocking, SUPERVISING PRODUCER unspecified without coma E72.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, unspecified K75.81 Nonalcoholic steatohepatitis ([place]) I10 Essential (primary) hypertension Office Visit 04/05/2019 1:47p [facility] Rosaline K72.90 Hepatic failure , Stocking, SUPERVISING PRODUCER unspecified without coma D63.8 Anemia in other chronic diseases classified elsewhere E72.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, unspecified E87.70 Fluid overload, unspecified Office Visit 04/05/2019 10:13a [facility] Meche An, N17.9 Acute kidney MD failure, unspecified N18.4 Chronic kidney disease, stage 4 (severe) Office Visit 04/04/2019 2:53p [facility] Meche An, N17.9 Acute kidney MD failure, unspecified N18.4 Chronic kidney disease, stage 4 (severe) E87.70 Fluid overload, unspecified D63.1 Anemia in chronic kidney disease Office Visit 04/04/2019 1:47p [facility] D64.9 Anemia, Assoc,pc CAMILO Ceballos unspecified Hospitalists N17.9 Acute kidney failure, unspecified K72.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, unspecified without coma K75.81 Nonalcoholic steatohepatitis ([place]) Office Visit 04/03/2019 2:35p [facility] Marlon Gutierrez N17.9 Acute kidney MD Kisha failure, unspecified D63.1 Anemia in chronic kidney disease Office Visit 04/03/2019 1:46p [facility] Lobo D63.1 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, CAMILO Ceballos chronic kidney Hospitalists disease N17.9 Acute kidney failure, unspecified E11.22 Type 2 diabetes mellitus w diabetic chronic kidney disease N18.9 Chronic kidney disease, unspecified Office Visit 04/02/2019 3:11p [facility] Araceli D63.1 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, ELOISA Gage chronic kidney Hospitalists disease N17.9 Acute kidney failure, unspecified 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 N18.9 Chronic kidney disease, unspecified Office Visit 03/27/2019 2:00p [facility] Marlon Gutierrez N18.4 Chronic kidney MD Kisha disease, stage 4 (severe) K74.60 Unspecified cirrhosis of liver E11.22 Type 2 diabetes mellitus w diabetic chronic kidney disease E87.70 Fluid overload, unspecified R06.02 Shortness of breath Z68.43 Body mass index (BMI) 50.0-59.9, adult Office Visit 02/21/2019 10:17a [facility] Jessica Luther R78.81 Bacteremia Infectious Diseases Mery Bowen I89.0 Lymphedema, not elsewhere classified Office Visit 02/21/2019 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 E78.5 Hyperlipidemia, unspecified Office Visit 02/20/2019 10:16a [facility] Jessica Luther R78.81 Bacteremia Infectious Diseases Mery Bowen I89.0 Lymphedema, not elsewhere classified Office Visit 02/20/2019 [facility] A49.1 Streptococcal 1:13p Assoc,pc MD Joselin infection, Hospitalists unspecified site D64.9 Anemia, unspecified I86.4 Gastric varices D69.6 Thrombocytopenia, unspecified E11.9 Type 2 diabetes mellitus without complications G89.4 Chronic pain syndrome Office Visit 02/19/2019 [facility] A49.1 Streptococcal 1:13p Assoc,pc MD Joselin infection, Hospitalists unspecified site N17.9 Acute kidney failure, unspecified D64.9 Anemia, unspecified I86.4 Gastric varices D69.6 Thrombocytopenia, unspecified E11.9 Type 2 diabetes mellitus without complications G89.4 Chronic pain syndrome Office Visit 02/18/2019 [facility] A49.1 Streptococcal 1:12p Assoc,pc DO Marito infection, Hospitalists unspecified site R65.20 Severe sepsis without septic shock D64.9 Anemia, unspecified N17.9 Acute kidney failure, unspecified D69.6 Thrombocytopenia, unspecified E11.9 Type 2 diabetes mellitus without complications G89.4 Chronic pain syndrome R53.1 Weakness Office Visit 02/17/2019 10:14a [facility] Anmol Luther R78.81 Bacteremia Infectious Kayla Bowen M.D. I89.0 Lymphedema, not elsewhere classified E11.22 Type 2 diabetes mellitus w diabetic chronic kidney disease N18.9 Chronic kidney disease, unspecified [facility] R78.81 Bacteremia Assoc, Hospitalists DO R65.20 Severe sepsis without septic shock N17.9 Acute kidney failure, unspecified D64.9 Anemia, unspecified D69.6 Thrombocytopenia, unspecified R53.1 Weakness G89.4 Chronic pain syndrome Office Visit 02/16/2019 [facility] Emily R50.9 Fever, 1:11p Assoc,pc ELOISA Whelan unspecified Hospitalists R53.1 Weakness N17.9 Acute kidney failure, unspecified D64.9 Anemia, unspecified Office Visit 01/03/2019 7:00a [facility] Rziwan Flores, R47.01 Aphasia Q21.1 Atrial septal defect E78.5 Hyperlipidemia, unspecified E66.9 Obesity, unspecified Office Visit 01/03/2019 11:01a 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 Jessica Valdez, G45.9 Transient 11:01a Assoc,pc ORTHOPEDICS TEACHER cerebral ischemic Hospitalists attack, unspecified D69.6 Thrombocytopenia, unspecified D64.9 Anemia, unspecified R79.89 Other specified abnormal findings of blood chemistry Assessments Date Code Description Provider 05/15/2019 K72.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, unspecified without coma Isabel Motta MD 05/15/2019 K75.81 Nonalcoholic steatohepatitis ([place]) Isabel Motta MD 05/15/2019 D64.9 Anemia, unspecified Isabel Motta MD 05/15/2019 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 and stage 1 through stage 4 chronic kidney disease, or unspecified chronic kidney disease 05/15/2019 I50.9 Heart failure, unspecified sIabel Motta MD 05/15/2019 E11.22 Type 2 diabetes mellitus with diabetic Isabel Motta MD chronic kidney disease 05/15/2019 N18.3 Chronic kidney disease, stage 3 Isabel Motta MD (moderate) 05/14/2019 K72.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, unspecified without coma Janelle Devi DO 05/14/2019 K75.81 Nonalcoholic steatohepatitis ([place]) Janelle Devi DO 05/14/2019 I50.30 Unspecified diastolic (congestive) heart Janelle Devi DO failure 05/14/2019 I13.0 Hypertensive heart and chronic kidney Janelle Senner, DO disease with heart failure and stage 1 through stage 4 chronic kidney disease, or unspecified chronic kidney disease 05/14/2019 N18.3 Chronic kidney disease, stage 3 Janelle Senner, DO (moderate) 05/14/2019 E11.22 Type 2 diabetes mellitus with diabetic Janelle Senner, DO chronic kidney disease 05/14/2019 G89.4 Chronic pain syndrome Janelle Senner, DO 05/14/2019 D64.9 Anemia, unspecified Janelle Senner, DO 05/13/2019 K72.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, unspecified without coma Maikol Olson MD 05/13/2019 R41.82 Altered mental status, unspecified Janelle Senner, DO 05/13/2019 K75.81 Nonalcoholic steatohepatitis ([place]) Maikol Olson MD 05/13/2019 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 Janelle Senner, DO 05/13/2019 D64.9 Anemia, unspecified Janelle Senner, DO 05/13/2019 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 chronic kidney disease with Janelle Senner, DO stage 1 through stage 4 chronic kidney disease, or unspecified chronic kidney disease 05/13/2019 N18.9 Chronic kidney disease, unspecified Janelle Senner, DO 05/01/2019 E11.22 Type 2 diabetes mellitus with [...] pain syndrome Cindy Husain MD 04/13/2019 Z79.4 long term care social worker (current) use of insulin Cindy Husain MD 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.4 longterm (current) use of insulin Katey Lopez MD [...] failure, unspecified without coma Rosaline Stocking , SUPERVISING PRODUCER 04/06/2019 E72.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, Rosaline Stocking, SUPERVISING PRODUCER unspecified 04/06/2019 K75.81 Nonalcoholic steatohepatitis ([place]) Rosaline Stocking, SUPERVISING PRODUCER 04/06/2019 I10 Essential (primary) hypertension Rosaline Stocking, SUPERVISING PRODUCER 04/05/2019 N17.9 Acute kidney failure, unspecified Meche An MD 04/05/2019 K72.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, unspecified without coma Rosaline Stocking , SUPERVISING PRODUCER 04/05/2019 N18.4 Chronic kidney disease, stage 4 (severe) Meche An MD 04/05/2019 D63.8 Anemia in other chronic diseases Rosaline Stocking, SUPERVISING PRODUCER classified elsewhere 04/05/2019 E72.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, Rosaline Stocking, SUPERVISING PRODUCER unspecified 04/05/2019 E87.70 Fluid overload, unspecified Rosaline Stocking, SUPERVISING PRODUCER 04/04/2019 D64.9 Anemia, unspecified CAMILO Cabezas 04/04/2019 [...] Anemia in chronic kidney disease Araceli Shortle, ORTHOPEDICS TEACHER 04/02/2019 N17.9 Acute kidney failure, unspecified Araceli Shortle, ORTHOPEDICS TEACHER 04/02/2019 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 chronic kidney disease with Araceli Shortle, ORTHOPEDICS TEACHER stage 1 through stage 4 chronic kidney disease, or unspecified chronic kidney disease 04/02/2019 N18.9 Chronic kidney disease, unspecified Araceli Shortle, ORTHOPEDICS TEACHER 03/27/2019 N18.4 Chronic kidney disease, stage 4 [...] MD 02/19/2019 A49.1 Streptococcal infection, unspecified site iMssy Olivera MD 02/19/2019 N17.9 Acute kidney failure, [...] DO 02/16/2019 R50.9 Fever, unspecified Emily Cleopatra, ORTHOPEDICS TEACHER 02/16/2019 R53.1 Weakness Emily Cleveland, ORTHOPEDICS TEACHER 02/16/2019 N17.9 Acute kidney failure, unspecified Emily Cleopatra, ORTHOPEDICS TEACHER 02/16/2019 D64.9 Anemia, unspecified Emily Cleveland, ORTHOPEDICS TEACHER 01/03/2019 R47.01 Aphasia Rizwan Flores MD 01/03/2019 Q21.1 Atrial septal defect Rizwan Flores MD 01/03/2019 G45.9 Transient cerebral ischemic attack, Poppy Heather, ORTHOPEDICS TEACHER unspecified 01/03/2019 E78.5 Hyperlipidemia, unspecified Rizwan Flores MD 01/03/2019 E66.9 Obesity, unspecified Rizwan Flores MD 01/03/2019 N17.9 Acute kidney failure, unspecified Poppy Heather, ORTHOPEDICS TEACHER 01/03/2019 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 chronic kidney disease with Poppy Heather, ORTHOPEDICS TEACHER stage 1 through stage 4 chronic kidney disease, or unspecified chronic kidney disease 01/03/2019 N18.3 Chronic kidney disease, stage 3 Poppy Heather, ORTHOPEDICS TEACHER (moderate) 01/02/2019 I63.9 Cerebral infarction, unspecified Femi Aguirre M.D. 01/02/2019 G45.9 Transient cerebral ischemic attack, Poppy Heather, ORTHOPEDICS TEACHER unspecified 01/02/2019 N18.3 Chronic kidney disease, stage 3 Poppy Heather, ORTHOPEDICS TEACHER (moderate) 01/02/2019 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 chronic kidney disease with Poppy Heather, ORTHOPEDICS TEACHER stage 1 through stage 4 chronic kidney [...]
--- OUTSIDE RECORDS SUMMARY | 2019-06-09 08:42 | XMS REPORT ---
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 diabetic diabetic chronic chronic kidney kidney disease disease Hypertensiv Hypertensiv Diagnosis Active Mónica e heart and e heart and 04-18 Cici chronic chronic [id number] kidney kidney disease disease with heart with heart failure and failure and stage 1 stage 1 through through stage 4 stage 4 chronic chronic kidney kidney disease, or disease, or unspecified unspecified chronic chronic kidney kidney disease disease Heart Heart Diagnosis Active Mónica failure, failure, 04-18 Cici unspecified unspecified [id number] Chronic Chronic Diagnosis Active Mónica kidney kidney 04-18 Cici disease, disease, [id number] stage 4 stage 4 (severe) (severe) Acute and Acute and Diagnosis Active Mónica subacute subacute 04-18 Cici hepatic hepatic [id number] failure failure without without coma coma Unspecified Unspecified Diagnosis Active 0 Mónica cirrhosis cirrhosis 04-18 Ccii of liver of liver [id number] Anemia in Anemia in Diagnosis Active Mónica chronic chronic Cici kidney kidney [id number] disease disease Primary Primary Diagnosis Active Mónica pulmonary pulmonary Cici hypertensio hypertensio [id number] n n Chronic Chronic Diagnosis Active Mónica pain 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9, [id number] adult adult Personal Personal Diagnosis Active Mónica 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 Other long Other long Diagnosis Active Mónica term term Cici (current) (current) [id number] drug drug therapy therapy Personal Personal Diagnosis Active Mónica history of history of Cici transient transient [id number] ischemic ischemic attack attack (TIA), and (TIA), and cerebral cerebral infarction infarction without without residual residual deficits deficits Pain frequent Pain Mgmt Active 2020-0 Dione pain 05-07 [place] 08:50: [id number] 00 Cardio edema Cardiovasc Active 2020-0 Dione ular 05-07 [place] 08:50: [id number] 00 Respiratory dyspnea Respirator Active 2020-0 Dione present y 05-07 [place] 08:50: [id number] 00 Endo/Satya glucose Endo/Satya Active 2020-0 [facility] testing 05-07 [place] dependence 08:50: [id number] 00 Endo/Satya diabetic Endo/Satya Active 2020-0 Dione foot care 05-07 [place] 08:50: [id number] 00 Nutrition nutritional Nutrition Active 2020-0 [facility] restriction 05-07 [place] s 08:50: [id number] 00 Elimination diarrhea Eliminatio Active 2020-0 [facility] n 05-07 [place] 08:50: [id number] 00 Activity ADL Activity Active 2020-0 Dione assistance 05-07 [place] required 08:50: [id number] 00 Activity self-care Activity Active 2020-0 [facility] deficit 05-07 [place] 08:50: [id number] 00 Safety structural Safety Active 2020-0 Dione barriers 05-07 [facility] 08:50: [id number] 00 Safety fall risk Safety Active 2020-0 Dione factor 05-07 [place] present 08:50: [id number] 00 Safety risk for Safety Active 2020-0 Dione hospitaliza 05-07 [place] tion 08:50: [id number] 00 Safety can be left Safety Active 2020-0 Dione alone for 05-07 [place] only short 08:50: [id number] periods 00 Medication oral med Meds Active 2020-0 Dione assistance 05-07 [place] required 08:50: [id number] 00 Medication injectable Meds Active 2020-0 Dione med 05-07 [place] assistance 08:50: [id number] required 00 Medication knowledge/s Meds Active 2019-0 Dione kill 05-07 [place] deficit: pt 08:50: [id number] 00 Musculoskel transfer Musculoske Active 2019-0 Dione etal assistance letal 05-07 [place] required 08:50: [id number] 00 Bed transfer PT/OT: Bed Active 2020-0 Peter Mobility/Tr deficit: Mobility/T 3-12 autumn Martinez sit/stand ransfer 13:00: PT 00 800091-0 Bed transfer PT/OT: Bed Active 2020-0 Peter Mobility/Tr deficit: Mobility/T 3-12 autumn Martinez standing ransfer 13:00: PT pivot 00 [id number] Bed transfer PT/OT: Bed Active 2020-0 Peter Mobility/Tr deficit: Mobility/T 3-12 autumn Martinez toilet/comm ransfer 13:00: PT ode 00 [id number] Bed transfer PT/OT: Bed Active 2020-0 Peter Mobility/Tr deficit: Mobility/T 3-12 autumn Martinez shower/tub ransfer 13:00: PT 00 855897-1 Bed knowledge/s PT/OT: Bed Active 2020-0 Peter Mobility/Tr kill Mobility/T 3-12 autumn Martinez deficit: pt ransfer 13:00: PT 00 [id number] Gait/Locomo knowledge/s PT/OT: Active 2019-0 Peter tion kill Gait/Locom 3-12 kevin Martinez deficit: pt otion 13:00: PT 00 [id number] Gait/Locomo gait PT/OT: Active 2020-0 Peter tion deficit Gait/Locom 3-12 Juan, problems otion 13:00: PT 00 [id number] Integument skin Integument Active 2019- Jeni integrity 3-20 Kevin risk 12:20: [id number] 00 Nutrition knowledge/s Nutrition Active 2020-0 Caitlin kill 3-20 Carrier RN deficit: pt 12:20: 00 Nutrition knowledge/s Nutrition Active 2019-0 Caitlin kill 3-20 Carrier RN deficit: cg 12:20: 00 Nutrition changing Nutrition Active 2019- Jeni weight/appe 3-20 Kevin tite 12:20: [id number] 00 Elimination bowel Eliminatio Active 0 Caitlin incontinenc n 3-20 Carrier RN e 12:20: 00 Elimination knowledge/s Eliminatio Active 2019-0 Caitlin kill n 3-20 Carrier RN deficit: pt 12:20: 00 Elimination knowledge/s Eliminatio Active 2019-0 Catilin kill n 3-20 Carrier RN deficit: cg 12:20: 00 Neuro anxiety Neuro/Emot Active 2019-0 Caitlin present ion 3-20 Carrier RN 12:20: 00 Neuro depressive Neuro/Emot Active 2019-0 Caitlin feelings ion 3-20 Carrier RN present 12:20: 00 Neuro constant Neuro/Emot Active 2019-0 Caitlin confusion ion 3-20 Carrier RN 12:20: 00 Medication knowledge/s Meds Active 2019-0 Caitlin kill 3-20 Carrier RN deficit: cg 12:20: 00 Medication potential Meds Active 0 Caitlin clinically 3-20 Carrier RN significant 12:20: medication 00 issue Musculoskel requires Musculoske Active 0 Caitlin etal human letal 3-20 Carrier RN assist to 12:20: leave home 00 Allergies, Adverse Reactions, Alerts Allergy Allergy Status Severity Reaction(s) Onset Inactive Treating Comments Name Type Date Date Clinician Unknown None Active Unknown None Unknown No Known Allergies For This Patient Medications Ordered Filled Start Stop Current Ordering Indication Dosage Frequency Signature Comments Components Medication Medication Date Date Medication? Clinician (SIG) Name Name allopurinoL allopurinoL 2019- Yes Midura Unknown Unknown 300 mg 300 mg 3-12 MD,Rafat tablet tablet nadoloL 20 nadoloL 20 2019- Yes Midura Unknown Unknown mg tablet mg tablet 3-12 MD,Rafat ferrous ferrous 2019-0 Yes Midura Unknown Unknown gluconate gluconate 3-12 MD,Rafat 324 mg (38 324 mg (38 mg iron) mg iron) tablet tablet lactulose lactulose 0 2020- Yes Midura Unknown Unknown 10 gram/15 10 gram/15 -01 28-20 MD,Rafat mL (15 mL) mL (15 mL) oral oral solution solution Lantus Lantus 0 2020- Yes Midura Unknown Unknown Solostar Solostar 05-07 ,Rafat U-100 U-100 Insulin 100 Insulin 100 unit/mL (3 unit/mL (3 mL) mL) subcutaneou subcutaneou s pen s pen Metamucil Metamucil 2019-0 Yes Midura Unknown Unknown Fiber Thin Fiber Thin 3-12 ,Rafat 2 gram oral 2 gram oral wafer wafer nystatin nystatin 2019-0 Yes Midura Unknown Unknown (bulk) 50 (bulk) 50 3-12 MD,Rafat million million unit powder unit powder Snowflake 3-6-9 Snowflake 3-6-9 2019-0 Yes Midura Unknown Unknown 1,200 mg 1,200 mg 3-12 MD,Rafat capsule capsule pantoprazol pantoprazol 2019-0 Yes Midura Unknown Unknown e 40 mg e 40 mg 3-12 MD,Rafat tablet,christian tablet,christian yed release yed release spironolact spironolact 2019-0 Yes Midura Unknown Unknown one 50 mg one 50 mg 3-12 MD,Rafat tablet tablet torsemide torsemide 2019-0 Yes Midura Unknown Unknown 20 mg 20 mg 3-12 MD,Rafat tablet tablet lactulose lactulose 2019-0 Yes Midura Unknown Unknown 10 gram/15 10 gram/15 -20 MD,Rafat mL (15 mL) mL (15 mL) oral oral solution solution Xifaxan 550 Xifaxan 550 2020-0 Yes Midura Unknown Unknown mg tablet mg tablet 3-20 MD,Rafat Lantus Lantus 0 2020- Yes Midura Unknown Unknown Solostar Solostar 05-15 MD,Rafat U-100 U-100 Insulin 100 Insulin 100 unit/mL (3 unit/mL (3 mL) mL) subcutaneou subcutaneou s pen s pen Lantus Lantus 0 2020- Yes Midura Unknown Unknown Solostar Terriostar 05-26 Rafat TORRES U-100 U-100 Insulin 100 Insulin 100 unit/mL (3 unit/mL (3 mL) mL) subcutaneou subcutaneou s pen s pen Lantus Lantus 2020- Yes Midura Unknown Unknown Solostar Solostar 05-29 Rafat TORRES U-100 U-100 Insulin 100 Insulin 100 unit/mL (3 unit/mL (3 mL) mL) subcutaneou subcutaneou s pen s pen Lantus Lantus Yes Midura Unknown Unknown Solostar Terriostmary kay 05-29 Rafat TORRES U-100 U-100 Insulin 100 Insulin 100 unit/mL (3 unit/mL (3 mL) mL) subcutaneou subcutaneou s pen s pen Vital Signs Vital Name Observation Time Observation Value Comments SYSTOLIC mm[Hg] 2019-05-27 18:11:09 118 mm[Hg] mm[Hg] Method: Sit SYSTOLIC mm[Hg] 2019-05-08 18:10:50 152 mm[Hg] mm[Hg] Method: Stand DIASTOLIC mm[Hg] 2019-05-27 18:11:09 70 mm[Hg] mm[Hg] Method: Sit DIASTOLIC mm[Hg] 2019-05-08 18:10:50 82 mm[Hg] mm[Hg] Method: Stand PULSE 2019-05-27 18:11:09 65 /min /min RESP RATE 2019-05-27 18:11:09 18 /min /min TEMP 2019-05-27 18:11:09 98 [degF] Procedures This patient has no known procedures. Results This patient has no known results.
--- OUTSIDE RECORDS SUMMARY | 2019-06-09 08:42 | XMS REPORT | Continuity of Care Document ---
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 [id number]/GM Cream Allopurinol 1 by mouth every Unknown [...] Unknown 81mg day Tablets DR JERNIGAN Unknown Durant-3 Fish Oil take 1 tab by mouth [...] Result H/L Range Note Basic Metabolic 04/29/2019 [facility] Sodium 138 mmol/L Normal 135-145 1 Panel [address] [place] [address] [phone] Potassium 3.6 mmol/L Normal 3.5-5.0 Chloride 99 mmol/L Low 101-111 Co2 Carbon Dioxide 32 mmol/L Normal 22-32 Anion Gap 7 mmol/L Normal 2-11 Glucose 193 mg/dL High 70-100 Blood Urea Nitrogen 33 mg/dL High 6-24 Creatinine 1.86 mg/dL High 0.51-0.95 BUN/Creatinine Ratio 17.7 Normal 8-20 Calcium 8.3 mg/dL Low 8.6-10.3 Egfr Non- 26.6 >60 Egfr 32.1 >60 2 Comp Metabolic 04/23/2019 [facility] Sodium 139 mmol/L Normal 135-145 Panel [address] [place] [address] [phone] Potassium 3.7 mmol/L Normal 3.5-5.0 Chloride 99 [...] Egfr 28.7 >60 3 Laboratory test 04/23/2019 [facility] Ammonia 86 mcmol/L High 16-[address] [place] [address] [phone] Laboratory test 04/22/2019 [facility] Pathologist (SEE NOTE) 4, [address] [place] [address] [phone] Manual 04/22/2019 [facility] Neutrophil % 58.0 % Differential [address] [place] [address] [phone] Lymphocytes % 25.0 % Monocytes % 10.0 % Eosinophils % 6.0 % Variant Lymph % 1.0 % Normal 0-6 Hypochromasia 1+ Anisocytosis 2+ Target Cells 1+ Stomatocytes 1+ CBC Auto 04/22/2019 [facility] White Blood 5.7 10^3/uL Normal 3.5-10.[address] [place] [address] [phone] Red Blood Count 2.47 10^6/uL Low 3.70-4.87 [...] Blood Cells % 0.0 Laboratory test 04/22/2019 [facility] Prealbumin 5 mg/dL Low 18-38 6 finding [address] [place] [address] [phone] Basic Metabolic 04/22/2019 [facility] Sodium 139 mmol/L Normal 135-145 Panel [address] [place] [address] [phone] Potassium 4.2 mmol/L Normal 3.5-5.0 Chloride 98 mmol/L Low 101-111 Co2 Carbon Dioxide 33 mmol/L High 22-32 Anion Gap 8 mmol/L Normal 2-11 Glucose 176 mg/dL High 70-100 Blood Urea Nitrogen 42 mg/dL High 6-24 Creatinine 2.08 mg/dL High 0.51-0.95 BUN/Creatinine Ratio 20.2 High 8-20 Calcium 8.9 mg/dL Normal 8.6-10.3 Egfr Non- 23.3 >60 Egfr 28.2 >60 7 Laboratory test 04/22/2019 [facility] Ammonia TNP mcmol/L 16- 53 8, 9 finding [address] [place] [address] [phone] Comp Metabolic 04/22/2019 [facility] Sodium 137 mmol/L Normal 135-145 Panel [address] [place] [address] [phone] Potassium 3.9 mmol/L Normal 3.5-5.0 Chloride 97 [...] 28.9 >60 10 Type & Screen 04/02/2019 [facility] Patient Blood Type A Positive [address] [place] [address] [phone] Antibody Screen NEGATIVE Laboratory test 04/02/2019 [facility] Packed Cells SEE RESULTS [address] [place] <[place] [address] NOTE> [phone] Urine Culture And 03/27/2019 [facility] Urine Culture SEE RESULT [address] [place] [address] [phone] Laboratory test 03/27/2019 [facility] Pathologist (SEE NOTE) [address] [place] [address] [phone] Cell Morphology 03/27/2019 [facility] Macrocytosis 3+ [address] [place], [place] [id number] [phone] Anisocytosis 2+ Target Cells 1+ Laboratory test 03/27/2019 [facility] Ferritin 117.2 ng/mL Normal 11-[address] [place] [address] [phone] B-Type Natriuretic Peptide BNP 839 pg/mL High <=100 Iron & Iron Binding 03/27/2019 [facility] Iron 105 g/dL Normal 50-[address] [place], [place] [address] [phone] Unsaturated Iron Binding < 209 g/dL Total Iron Binding Capacity 224 g/dL Low 250-450 Transferrin 160 mg/dL Low 203-362 % Iron Saturation 47 % Normal 15-55 Laboratory test 03/27/2019 [facility] Hemoglobin A1c 5.1 % Normal 4.0-5.[address] (Glyco HGB) [place] [address] [phone] Albumin 2.0 g/dL Low 3.2-5.2 Urinalysis Profile 03/27/2019 [facility] Urine Color Yellow [address] [place] [address] [phone] Urine Appearance Clear Urine Specific [place] 1.012 Normal 1.010-1.030 Urine pH 5.0 Normal [...] Cell Present Abnormal Absent Basic Metabolic 03/27/2019 [facility] Sodium 138 mmol/L Normal 135-[address] [place] [address] [phone] Co2 Carbon Dioxide 17 mmol/L Low 22-32 Glucose 110 mg/dL High 70-100 Blood Urea Nitrogen 52 mg/dL High 6-24 Creatinine 5.41 mg/dL High 0.51-0.95 BUN/Creatinine Ratio 9.6 Normal 8-20 Calcium 8.3 mg/dL Low 8.6-10.3 Egfr Non- 7.7 >60 Egfr 9.4 >60 16 Potassium 5.5 mmol/L High 3.5-5.0 Chloride 113 mmol/L High 101-111 Anion Gap 8 mmol/L Normal 2-11 CBC Auto 03/27/2019 [facility] White Blood 6.7 10^3/uL Normal 3.5-10.[address] [place] [address] [phone] Red Blood Count 2.17 10^6/uL Low 3.70-4.87 [...] Blood Cells % 0.2 Neph Routine 03/27/2019 [facility] Total Protein Random 43 mg/ dL [address] [place] [address] [phone] Creatinine Random Urine 117.28 mg/dL Laboratory 02/16/2019 [facility] Lactic Acid 5.3 Critical 0.5- 2.0 18 test finding [address] mmol/[place] [address] [phone] Influenza A & 02/16/2019 [facility] Flu AB (SEE 19, B Request [address] Disclaimer NOTE) 20 [place] [address] [phone] Influenza A Molecular NEGATIVE Negative Influenza B Molecular NEGATIVE Negative 21 1 [id number] 2 Because ethnic data is not always [...] 5 Kidney failure <15 (or dialysis) 4 [id number] 5 Macrocytic anemia. Mild thrombocytopenia. No evidence of hemolytic process. Reviewed by Mónica Snow MD 6 [id number] 7 Because ethnic data is not always [...] 5 Kidney failure <15 (or dialysis) 8 [id number] Unable to report test result due [...] ISSUES PER PT 12 SEE RESULTS BELOW [id number] AP PC TRANSFUSED 04/02/19 2324 [id number] AP PC TRANSFUSED 04/03/19 0936 [id number] AP PC TRANSFUSED 04/04/19 0628 [id number] AP PC TRANSFUSED 04/04/19 0935 13 SEE RESULT BELOW Name: BONNIE AGUILERA : [address]: Marlon Beard MD Acct: [id number] Unit: [id number] AGE: 73 Location: LAB Re03/27/19 SEX: F Status: REG REF SPEC: [id number] CORINA: 03/27/19-[address]: Marlon Beard MD REQ: [id number] RECD: 03/27/19-1547 STATUS: COMP _ SOURCE: URINE SPDESC: ORDERED: Urine Culture Procedure Result Reported Site Urine Culture Final 03/28/19- 1406 ML No Growth (<1,000 CFU/mL) * ML - Main Lab . END OF REPORT DEPARTMENT OF PATHOLOGY, [address] [place] [address] iNc Weber M.D. Director [facility] # [id number] 14 Moderate macrocytic anemia with thrombocytopenia noted. Clinical correlation suggested. Additional studies is warranted. Reviewed by Dr. Weber 15 Therapeutic target for the treatment of diabetes mellitus patients is <7% HBA1C, and in selective patients <6.0%. Please refer to [place] [employer] diabetic care guidelines for further [...] 02/19/19. 18 Critical Result LACT:5.3 Called to [id number] at: 22:01:07 by:[id number] Read back by:[id number] JUSTINO Severe Sepsis and Septic Shock Management Bundle Measure requires all lactic acids initially measuring >2.0 mmol/L be repeated. Critical Result LACT:5.3 Called to [id number] at: 22:01:07 by:[id number] Read back by:[id number] [facility] Severe Sepsis and Septic Shock Management Bundle Measure requires all lactic acids initially measuring >2.0 mmol/L be repeated. 19 NASAL 20 Suboptimal collection technique may reduce sensitivity of test. Refer to the [facility] Test Catalog for collection information: [email or web address] As with all diagnostic procedures, the laboratory results obtained should be used in conjunction with other clinical information available to the physician, including confirmation by another method, as applicable. 21 Supplemental Manager: [id number] Procedures Date Code Description Status 02/18/2019 94681 Moderate Sedation Services; Same Phys Intl 15 Mins; PT >= Completed 5 Years 02/18/2019 08368 Color Flow Doppler/Interp & Reprt Completed 02/18/2019 64097 Pulse Wave/Continuous-Interp.RPT Completed 02/18/2019 96631 Echocardiography, Transesophageal, Real Time W/Image 2D Completed W/W/O M-M 01/02/2019 04782 ECHO Transthorasic Realtime 2D W Doppler & Color Flow Hosp Completed Medical Devices Description No Information Available Encounters Type Date Location Provider Dx Diagnosis Office Visit 05/14/2019 [facility] Janelle Devi, K72.90 Hepatic failure, 2:10p Assoc,pc [...] syndrome D64.9 Anemia, unspecified Office Visit 05/13/2019 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 D64.9 Anemia, unspecified 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 N18.9 Chronic kidney disease, unspecified Office Visit 04/29/2019 9[facility]00a [facility] Cator, R54 Age- related physical MD debility N18.4 Chronic kidney disease, stage 4 (severe) D63.1 Anemia in chronic kidney disease K74.60 Unspecified cirrhosis of liver K29.61 Other gastritis with bleeding R18.8 Other ascites E11.22 Type 2 diabetes mellitus w diabetic chronic kidney disease Z68.43 Body mass index (BMI) 50.0-59.9, adult [facility] R54 Age- related physical MD debility N18.4 Chronic kidney disease, stage 4 (severe) D63.1 Anemia in chronic kidney disease K74.60 Unspecified cirrhosis of liver K29.61 Other gastritis with bleeding R18.8 Other ascites K72.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, unspecified without coma E11.22 Type 2 diabetes mellitus w diabetic chronic kidney disease Z68.43 Body mass index (BMI) 50.0-59.9, adult Office Visit 04/18/2019 [facility] K72.90 Hepatic failure, 3:26p Assoc,theron Motta MD unspecified Hospitalists without coma N17.9 Acute kidney failure, unspecified I50.9 Heart failure, unspecified D64.9 Anemia, unspecified E11.9 Type 2 diabetes mellitus without complications G89.29 Other chronic pain Office Visit 04/18/2019 10:16a [facility] Nephrology Meche Haynes Negoi, N17.9 Acute kidney MD failure, unspecified N18.4 Chronic kidney disease, stage 4 (severe) Office Visit 04/17/2019 [facility] K72.90 Hepatic failure, 3:26p Assoc,theron Motta MD unspecified Hospitalists without coma N17.9 Acute kidney failure, unspecified D64.9 Anemia, unspecified G89.4 Chronic pain syndrome Office Visit 04/16/2019 3:25p [facility] K72.90 Hepatic failure, Assoc,theron Husain MD [...] kidney disease, unspecified Office Visit 04/15/2019 10:15a [facility] Nephrology Meche Haynes N17.9 Acute kidney MD Juve failure, unspecified Office Visit 04/15/2019 3:25p [facility], K72.90 Hepatic failure, Assoctheron MD unspecified Hospitalists without coma N17.9 Acute kidney failure, unspecified D64.9 Anemia, unspecified G89.4 Chronic pain syndrome Office Visit 04/14/2019 [facility] K72.90 Hepatic failure, 3:25p theron Escalante MD unspecified Hospitalists without coma N17.9 Acute kidney failure, unspecified D64.9 Anemia, unspecified K27.9 Peptic ulc, site unsp, unsp as ac or chr, w/o hemor or perf Office Visit 04/14/2019 10:15a 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 Nephrology Marlon Jarvis. N17.9 Acute kidney 1:52p MD Kisha failure, unspecified Office Visit 04/12/2019 [facility] Nephrology Marlon Jarvis. N17.9 Acute kidney 1:52p MD Kisha failure, unspecified Office Visit 04/11/2019 [facility] K72.90 Hepatic failure, 3:23p theron Escalante MD unspecified Hospitalists without coma N17.9 Acute kidney failure, unspecified D64.9 Anemia, unspecified K27.9 Peptic ulc, site unsp, unsp as ac or chr, w/o hemor or perf G89.4 Chronic pain syndrome Office Visit 04/11/2019 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 Nephrology Marlon Gutierrez N17.9 Acute kidney MD Kisha failure, unspecified Office Visit 04/07/2019 9:20a [facility] Nephrology Marlon Gutierrez N17.9 Acute kidney MD Kisha failure, unspecified Office Visit 04/07/2019 1:48p [facility] Diana Vega MD K72.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, unspecified without coma E72.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, unspecified K75.81 Nonalcoholic steatohepatitis ([place]) I10 Essential (primary) hypertension Office Visit 04/06/2019 1:47p [facility] Rosaline K72.90 Hepatic failure , Stocking, HAND STRIPER unspecified without coma E72.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, unspecified K75.81 Nonalcoholic steatohepatitis ([place]) I10 Essential (primary) hypertension Office Visit 04/05/2019 1:47p [facility] Rosaline K72.90 Hepatic failure , Stocking, HAND STRIPER unspecified without coma D63.8 Anemia in other chronic diseases classified elsewhere E72.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, unspecified E87.70 Fluid overload, unspecified Office Visit 04/05/2019 10:13a [facility] Nephrology Meche An, N17.9 Acute kidney MD failure, unspecified N18.4 Chronic kidney disease, stage 4 (severe) Office Visit 04/04/2019 2:53p [facility] Nephrology Meche An, N17.9 Acute kidney MD failure, unspecified N18.4 Chronic kidney disease, stage 4 (severe) E87.70 Fluid overload, unspecified D63.1 Anemia in chronic kidney disease Office Visit 04/04/2019 1:47p [facility] D64.9 Anemia, Assoc,CAMILO Vaughn unspecified Hospitalists N17.9 Acute kidney failure, unspecified K72.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, unspecified without coma K75.81 Nonalcoholic steatohepatitis ([place]) Office Visit 04/03/2019 2:35p [facility] Nephrology Marlon Gutierrez N17.9 Acute kidney MD Kisha failure, unspecified D63.1 Anemia in chronic kidney disease Office Visit 04/03/2019 1:46p [facility] Lobo D63.1 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,pc CAMILO Ceballos chronic kidney Hospitalists disease N17.9 Acute kidney failure, unspecified E11.22 Type 2 diabetes mellitus w diabetic chronic kidney disease N18.9 Chronic kidney disease, unspecified Office Visit 04/02/2019 3:11p [facility] Araceli D63.1 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,pc ELOISA Gage chronic kidney Hospitalists disease N17.9 Acute kidney failure, unspecified 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 N18.9 Chronic kidney disease, unspecified Office Visit 03/27/2019 2:00p [facility] Nephrology Marlon Gutierrez N18.4 Chronic kidney MD Kisha disease, stage 4 (severe) K74.60 Unspecified cirrhosis of liver E11.22 Type 2 diabetes mellitus w diabetic chronic kidney disease E87.70 Fluid overload, unspecified R06.02 Shortness of breath Z68.43 Body mass index (BMI) 50.0-59.9, adult Office Visit 02/21/2019 10:17a [facility] Jessica Luther R78.81 Bacteremia Infectious Diseases Mery Bowen I89.0 Lymphedema, not elsewhere classified Office Visit 02/21/2019 [facility] Jessica Valdez, A40.8 Other 1:14p Assoc,pc CONSERVATION ENFORCEMENT OFFICER streptococcal Hospitalists sepsis K72.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, unspecified without coma R18.8 Other ascites D63.1 Anemia in chronic kidney disease N18.9 Chronic kidney disease, unspecified 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 E78.5 Hyperlipidemia, unspecified Office Visit 02/20/2019 10:16a [facility] Jessica Luther R78.81 Bacteremia Infectious Diseases Mery Bowen I89.0 Lymphedema, not elsewhere classified Office Visit 02/20/2019 [facility] Missy A49.1 Streptococcal 1:13p Assoc,pc MD Joselin infection, Hospitalists unspecified site D64.9 Anemia, unspecified I86.4 Gastric varices D69.6 Thrombocytopenia, unspecified E11.9 Type 2 diabetes mellitus without complications G89.4 Chronic pain syndrome Office Visit 02/19/2019 [facility] Missy A49.1 Streptococcal 1:13p Assoc,pc MD Joselin infection, Hospitalists unspecified site N17.9 Acute kidney failure, unspecified D64.9 Anemia, unspecified I86.4 Gastric varices D69.6 Thrombocytopenia, unspecified E11.9 Type 2 diabetes mellitus without complications G89.4 Chronic pain syndrome Office Visit 02/18/2019 [facility] Janelle A49.1 Streptococcal 1:12p Assoc,pc Marito, DO infection, Hospitalists unspecified site R65.20 Severe sepsis without septic shock D64.9 Anemia, unspecified N17.9 Acute kidney failure, unspecified D69.6 Thrombocytopenia, unspecified E11.9 Type 2 diabetes mellitus without complications G89.4 Chronic pain syndrome R53.1 Weakness Office Visit 02/17/2019 10:14a [facility] Luther R78.81 Bacteremia Infectious Diseases Mery Bowen I89.0 Lymphedema, not elsewhere classified E11.22 Type 2 diabetes mellitus w diabetic chronic kidney disease N18.9 Chronic kidney disease, unspecified [facility] R78.81 Bacteremia Assoc, Hospitalists DO R65.20 Severe sepsis without septic shock N17.9 Acute kidney failure, unspecified D64.9 Anemia, unspecified D69.6 Thrombocytopenia, unspecified R53.1 Weakness G89.4 Chronic pain syndrome Office Visit 02/16/2019 [facility] Emily R50.9 Fever, 1:11p Assoc,pc ELOISA Whelan unspecified Hospitalists R53.1 Weakness N17.9 Acute kidney failure, unspecified D64.9 Anemia, unspecified Office Visit 01/03/2019 7:00a [facility] Rizwan Flores, R47.01 Aphasia Q21.1 Atrial septal defect E78.5 Hyperlipidemia, unspecified E66.9 Obesity, unspecified Office Visit 01/03/2019 11:01a [facility] Poppy Heather, G45.9 Transient Assoc,pc CONSERVATION ENFORCEMENT OFFICER cerebral ischemic Hospitalists attack, unspecified N17.9 Acute kidney failure, unspecified 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 N18.3 Chronic kidney disease, stage 3 (moderate) Office Visit 01/01/2019 7:00a [facility] Rizwan Flores, R47.01 Aphasia R41.82 Altered mental status, unspecified Office Visit 01/01/2019 [facility] Jessica Valdez, G45.9 Transient 11:01a Assoc,pc CONSERVATION ENFORCEMENT OFFICER cerebral ischemic Hospitalists attack, unspecified D69.6 Thrombocytopenia, [...] kidney disease 05/15/2019 I50.9 Heart failure, unspecified Isabel Motta MD 05/15/2019 E11.22 Type 2 diabetes mellitus with diabetic Isabel Motta MD chronic kidney disease 05/15/2019 N18.3 Chronic kidney disease, stage 3 Isabel Motta MD (moderate) 05/14/2019 K72.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, unspecified without coma Janelle Devi, 05/14/2019 K75.81 Nonalcoholic steatohepatitis ([place]) Janelle Devi DO 05/14/2019 I50.30 Unspecified diastolic (congestive) heart Janelle Devi DO failure 05/14/2019 I13.0 Hypertensive heart and chronic kidney Janelle Devi DO disease with heart failure and stage 1 through stage 4 chronic kidney disease, or unspecified chronic kidney disease 05/14/2019 N18.3 Chronic kidney disease, stage 3 Janelle Devi, DO (moderate) 05/14/2019 E11.22 Type 2 diabetes mellitus with diabetic Janelle Devi DO chronic kidney disease 05/14/2019 G89.4 Chronic pain syndrome Janelle Devi DO 05/14/2019 D64.9 Anemia, unspecified Janelle Senner, [...] pain syndrome Cindy Husain MD 04/13/2019 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 04/10/2019 D64.9 Anemia, unspecified Rosio Finnegan D.O. 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 Katey Lopez MD [...] Vega MD unspecified 04/07/2019 K75.81 Nonalcoholic steatohepatitis ([place]) Diana Vega MD 04/07/2019 I10 Essential (primary) hypertension Diana Vega MD 04/06/2019 K72.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, unspecified without coma Rosaline Stocking , HAND STRIPER 04/06/2019 E72.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, Rosaline Stocking, HAND STRIPER unspecified 04/06/2019 K75.81 Nonalcoholic steatohepatitis ([place]) Rosaline Stocking, HAND STRIPER 04/06/2019 I10 Essential (primary) hypertension Rosaline Stocking, HAND STRIPER 04/05/2019 N17.9 Acute kidney failure, unspecified Meche An MD 04/05/2019 K72.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, unspecified without coma Rosaline Stocking , HAND STRIPER 04/05/2019 N18.4 Chronic kidney disease, stage 4 (severe) Meche An MD 04/05/2019 D63.8 Anemia in other chronic diseases Rosaline Stocking, HAND STRIPER classified elsewhere 04/05/2019 E72.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, Rosaline Stocking, HAND STRIPER unspecified 04/05/2019 E87.70 Fluid overload, unspecified Rosaline Stocking, HAND STRIPER 04/04/2019 D64.9 Anemia, unspecified CAMILO Cabezas 04/04/2019 [...] Anemia in chronic kidney disease Araceli Shortle, CONSERVATION ENFORCEMENT OFFICER 04/02/2019 N17.9 Acute kidney failure, unspecified Araceli Shortle, CONSERVATION ENFORCEMENT OFFICER 04/02/2019 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 chronic kidney disease with Araceli Shortle, CONSERVATION ENFORCEMENT OFFICER stage 1 through stage 4 chronic kidney disease, or unspecified chronic kidney disease 04/02/2019 N18.9 Chronic kidney disease, unspecified Araceli Shortle, CONSERVATION ENFORCEMENT OFFICER 03/27/2019 N18.4 Chronic kidney disease, stage 4 [...] Janelle Senner, DO 02/17/2019 R53.1 Weakness Janelle Devi, DO 02/17/2019 G89.4 Chronic pain syndrome Janelle Devi, DO 02/16/2019 R50.9 Fever, unspecified Emily Whelan, [employer]SERVATION ENFORCEMENT OFFICER 02/16/2019 R53.1 Weakness Emily Whelan, CONSERVATION ENFORCEMENT OFFICER 02/16/2019 N17.9 Acute kidney failure, unspecified Emily [place], CONSERVATION ENFORCEMENT OFFICER 02/16/2019 D64.9 Anemia, unspecified Emily [place], CONSERVATION ENFORCEMENT OFFICER 01/03/2019 R47.01 Aphasia Rizwan Flores MD 01/03/2019 Q21.1 Atrial septal defect Rizwan Flores MD 01/03/2019 G45.9 Transient cerebral ischemic attack, Poppy Heather, CONSERVATION ENFORCEMENT OFFICER unspecified 01/03/2019 E78.5 Hyperlipidemia, unspecified Rizwan Flores MD 01/03/2019 E66.9 Obesity, unspecified Rizwan Flores MD 01/03/2019 N17.9 Acute kidney failure, unspecified Poppy Heather, CONSERVATION ENFORCEMENT OFFICER 01/03/2019 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 chronic kidney disease with Poppy Heather, CONSERVATION ENFORCEMENT OFFICER stage 1 through stage 4 chronic kidney disease, or unspecified chronic kidney disease 01/03/2019 N18.3 Chronic kidney disease, stage 3 Poppy Heather, CONSERVATION ENFORCEMENT OFFICER (moderate) 01/02/2019 I63.9 Cerebral infarction, unspecified Femi Aguirre M.D. 01/02/2019 G45.9 Transient cerebral ischemic attack, Poppy Heather, CONSERVATION ENFORCEMENT OFFICER unspecified 01/02/2019 N18.3 Chronic kidney disease, stage 3 Poppy Heather, CONSERVATION ENFORCEMENT OFFICER (moderate) 01/02/2019 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 chronic kidney disease with Ppopy Heather, CONSERVATION ENFORCEMENT OFFICER stage 1 through stage 4 chronic kidney disease, or unspecified chronic kidney disease 01/01/2019 R47.01 Aphasia Rizwan Flores MD 01/01/2019 G45.9 Transient cerebral ischemic attack, Jessica Valdez, CONSERVATION ENFORCEMENT OFFICER unspecified 01/01/2019 R41.82 Altered mental status, unspecified Rizwan Flores MD 01/01/2019 D69.6 Thrombocytopenia, unspecified Jessica Valdez, ELOISA 01/01/2019 D64.9 Anemia, unspecified Jessica Valdez NP 01/01/2019 R79.89 Other specified abnormal findings of Jessica Valdez NP blood chemistry Plan of Treatment No Information Available Functional Status Description No Information Available Mental Status Description No Information Available Referrals Description No Information Available
--- OUTSIDE RECORDS SUMMARY | 2019-06-09 08:42 | XMS REPORT ---
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 with heart with heart failure and failure and stage 1 stage 1 through through stage 4 stage 4 chronic chronic kidney kidney disease, or disease, or unspecified unspecified chronic chronic kidney kidney disease disease Heart Heart Diagnosis Active Caitlin failure, failure, 2- Carrier RN unspecified unspecified Chronic Chronic Diagnosis Active Caitlin kidney kidney 2- Carrier RN disease, disease, stage 4 stage 4 (severe) (severe) Acute and Acute and Diagnosis Active Caitlin subacute subacute 2- Carrier RN hepatic hepatic failure failure without without coma coma Unspecified Unspecified Diagnosis Active Caitlin cirrhosis cirrhosis 2-21 Carrier RN of liver of liver Anemia in Anemia in Diagnosis Active Caitlin chronic chronic Carrier RN kidney kidney disease disease Primary Primary Diagnosis Active Caitlin pulmonary pulmonary Carrier RN hypertensio hypertensio n n Chronic Chronic Diagnosis Active Caitlin pain pain Carrier RN syndrome syndrome Other Other Diagnosis Active 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 Cardiomegal Cardiomegal Diagnosis Active Caitlin y y Carrier RN Gastro-esop Gastro-esop Diagnosis Active Caitlin hageal hageal Carrier RN reflux reflux disease disease without without esophagitis esophagitis Gout, Gout, Diagnosis Active Caitlin unspecified unspecified Carrier RN Age-related Age-related Diagnosis Active Caitlin physical physical Carrier RN debility 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 Caitlin (current) (current) Carrier RN use of use of insulin insulin Body mass Body mass Diagnosis Active Caitlin index (BMI) index (BMI) Carrier RN 50.0-59.9, 50.0-59.9, adult adult Personal Personal Diagnosis Active Caitlin history of history of Carrier RN peptic peptic ulcer ulcer disease disease Other long Other long Diagnosis Active Caitlin term term Carrier RN (current) (current) drug drug therapy therapy Personal Personal Diagnosis Active Caitlin history of history of Carrier RN transient transient ischemic ischemic attack attack (TIA), and (TIA), and cerebral cerebral infarction infarction without without residual residual deficits deficits Pain frequent Pain Mgmt Active 2020-0 Dione pain 05-07 [place] 08:50: [id number] Cardio edema Cardiovasc Active 2020-0 Dione ular 05-07 [place] 08:50: [id number] 00 Respiratory dyspnea Respirator Active 2020-0 Dione present y 05-07 [place] 08:50: [id number] 00 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 05-07 [place] dependence 08:50: [id number] 00 Endo/Satya diabetic Endo/Satya Active 2020-0 Dione foot care 05-07 [place] 08:50: [id number] 00 Nutrition nutritional Nutrition Active 2020-0 Dione restriction 05-07 [place] s 08:50: [id number] 00 Elimination diarrhea Eliminatio Active 2020-0 Dione n 05-07 [place] 08:50: [id number] 00 Activity ADL Activity Active 2020-0 Dione assistance 05-07 [place] required 08:50: [id number] 00 Activity self-care Activity Active 2020-0 Dione deficit 05-07 [place] 08:50: [id number] 00 Safety structural Safety Active 2020-0 Dione barriers 05-07 [place] present 08:50: [id number] 00 Safety fall risk Safety Active 2020-0 Dione factor 05-07 [place] present 08:50: [id number] 00 Safety risk for Safety Active 2020-0 Dione hospitaliza 05-07 [place] tion 08:50: [id number] 00 Safety can be left Safety Active 2020-0 Dione alone for 05-07 [place] only short 08:50: [id number] periods 00 Medication oral med Meds Active 2020-0 Dione assistance 05-07 [place] required 08:50: [id number] 00 Medication injectable Meds Active 2019-0 Dione med 05-07 [place] assistance 08:50: [id number] required 00 Medication knowledge/s Meds Active 2019-0 Dione kill 05-07 [place] deficit: pt 08:50: [id number] 00 Musculoskel transfer Musculoske Active 2019- Dione etal assistance letal 05-07 [place] required 08:50: [id number] 00 Bed transfer PT/OT: Bed Active 2019-0 Peter Mobility/Tr deficit: Mobility/T 3-12 autumn Martinez sit/stand ransfer 13:00: PT 00 [id number] Bed transfer PT/OT: Bed Active 2019-0 Peter Mobility/Tr deficit: Mobility/T 3-12 autumn Martinez standing ransfer 13:00: PT pivot 00 [id number] Bed transfer PT/OT: Bed Active 2019-0 Peter Mobility/Tr deficit: Mobility/T 3-12 autumn Martinez toilet/comm ransfer 13:00: PT ode 00 [id number] Bed transfer PT/OT: Bed Active 2019-0 Peter Mobility/Tr deficit: Mobility/T 3-12 autumn Martinez shower/tub ransfer 13:00: PT 00 [id number] Bed knowledge/s PT/OT: Bed Active 2019-0 Peter Mobility/Tr kill Mobility/T 3-12 autumn Martinez deficit: pt ransfer 13:00: PT 00 [id number] Gait/Locomo knowledge/s PT/OT: Active 2019- Peter tion kill Gait/Locom 3-12 Juan, problems deficit: pt otion 13:00: PT 00 [id number] Gait/Locomo gait PT/OT: Active 2020-0 Peter tion deficit Gait/Locom 3-12 Juan, problems otion 13:00: PT 00 [id number] Integument skin Integument Active 2019-0 Jeni integrity 3-20 Kevin risk 12:20: [id number] Nutrition knowledge/s Nutrition Active 2020-0 Caitlin kill 3-20 Carrier RN deficit: pt 12:20: 00 Nutrition knowledge/s Nutrition Active 2020-0 Caitlin kill 3-20 Carrier RN deficit: cg 12:20: 00 Nutrition changing Nutrition Active Jeni weight/appe 3-20 Kevin chun 12:20: [id number] 00 Elimination bowel Eliminatio Active Caitlin incontinenc n 3-20 Carrier RN e 12:20: 00 Elimination knowledge/s Eliminatio Active Caitlin kill n 3-20 Carrier RN deficit: pt 12:20: 00 Elimination knowledge/s Eliminatio Active Caitlin kill n 3-20 Carrier RN deficit: cg 12:20: 00 Neuro anxiety Neuro/Emot Active Caitlin present ion 3-20 Carrier RN 12:20: 00 Neuro depressive Neuro/Emot Active Caitlin feelings ion 3-20 Carrier RN present 12:20: 00 Neuro constant Neuro/Emot Active Caitlin confusion ion 3-20 Carrier RN 12:20: 00 Medication knowledge/s Meds Active Caitlin kill 3-20 Carrier RN deficit: cg 12:20: 00 Medication potential Meds Active Caitlin clinically 3-20 Carrier RN significant 12:20: medication 00 issue Musculoskel requires Musculoske Active Caitlin etal human letal 3-20 Carrier RN [...] Medication? Clinician (SIG) Name Name allopurinoL allopurinoL Yes Midura Unknown Unknown 300 mg 300 mg 3-12 Rafat TORRES tablet tablet nadoloL 20 nadoloL 20 Yes Midura Unknown Unknown mg tablet mg tablet 3-12 Rafat TORRES ferrous ferrous Yes Midura Unknown Unknown gluconate gluconate - Rafat TORRES 324 mg (38 324 mg (38 mg iron) mg iron) tablet tablet lactulose lactulose 2019- Yes Midura Unknown Unknown 10 gram/15 10 gram/15 05-07 Rafat TORRES mL (15 mL) mL (15 mL) oral oral solution solution Lantus Lantus 2020- Yes Midura Unknown Unknown Solostar Solostar 05-07 Rafat TORRES U-100 U-100 Insulin 100 Insulin 100 unit/mL (3 unit/mL (3 mL) mL) subcutaneou subcutaneou s pen s pen Metamucil Metamucil Yes Midura Unknown Unknown Fiber Thin Fiber Thin -12 Rafat TORRES 2 gram oral 2 gram oral wafer wafer nystatin nystatin 0 Yes Midura Unknown Unknown (bulk) 50 (bulk) 50 -12 Rafat TORRES million million unit powder unit powder [place] 3-6-9 [place] 3-6-9 2019- Yes Midura Unknown Unknown 1,200 mg 1,200 mg -12 Rafat TORRES capsule capsule pantoprazol pantoprazol Yes Midura Unknown Unknown e 40 mg e 40 mg 12 Rafat TORRES tablet,christian tablet,christian yed release yed release spironolact spironolact Yes Midura Unknown Unknown one 50 mg one 50 mg -12 ,Rafat tablet tablet torsemide torsemide Yes Midura Unknown Unknown 20 mg 20 mg -12 ,Rafat tablet tablet lactulose lactulose Yes Midura Unknown Unknown 10 gram/15 10 gram/15 -20 Rafat TORRES mL (15 mL) mL (15 mL) oral oral solution solution Xifaxan 550 Xifaxan 550 2019- Yes Midura Unknown Unknown mg tablet mg tablet 05-15 Rafat TORRES Lantus Lantus 2020- Yes Midura Unknown Unknown Solostar Terriostmary kay 05-15 Rafat TORRES U-100 U-100 Insulin 100 Insulin 100 unit/mL (3 unit/mL (3 mL) mL) subcutaneou subcutaneou s pen s pen Lantus Lantus Yes Midura Unknown Unknown Solostar Solostmary kay 05-26 Rafat TORRES U-100 U-100 Insulin 100 [...]
--- OUTSIDE RECORDS SUMMARY | 2019-06-09 08:42 | XMS REPORT ---
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 Caitlin (current) (current) Carrier RN use of use of insulin insulin Body mass Body mass Diagnosis Active Caitlin index (BMI) index (BMI) Carrier RN 50.0-59.9, 50.0-59.9, adult adult Personal Personal Diagnosis Active Cailtin history of history of Carrier RN peptic peptic ulcer ulcer disease disease Other long Other long Diagnosis Active Caitlin term term Carrier RN (current) (current) drug drug therapy therapy Personal Personal Diagnosis Active Acitlin history of history of Carrier RN transient transient ischemic ischemic attack attack (TIA), and (TIA), and cerebral cerebral infarction infarction without without residual residual deficits deficits Pain frequent Pain Mgmt Active 2020-0 Dione pain 05-07 [place] 08:50: [id number] 00 Cardio edema Cardiovasc Active 2020-0 Dione ular 05-07 [place] 08:50: [id number] 00 Respiratory dyspnea Respirator Active 2020-0 Dione present y 05-07 [place] 08:50: [id number] 00 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 05-07 [place] dependence 08:50: [id number] 00 Endo/Satya diabetic Endo/Satya Active 2020-0 Dione foot care 05-07 [place] 08:50: [id number] 00 Nutrition nutritional Nutrition Active 2020-0 Dione restriction 05-07 [place] s 08:50: [id number] 00 Elimination diarrhea Eliminatio Active 2020-0 Dione n 05-07 [place] 08:50: [id number] 00 Activity ADL Activity Active 2020-0 Dione assistance 05-07 [place] required 08:50: [id number] 00 Activity self-care Activity Active 2020-0 Dione deficit 05-07 [place] 08:50: [id number] 00 Safety structural Safety Active 2020-0 Dione barriers 05-07 [place] present 08:50: [id number] 00 Safety fall risk Safety Active 2020-0 Dione factor 05-07 [place] present 08:50: [id number] 00 Safety risk for Safety Active 2020-0 Dione hospitaliza 05-07 [place] tion 08:50: [id number] 00 Safety can be left Safety Active 2020-0 Dione alone for 05-07 [place] only short 08:50: [id number] periods 00 Medication oral med Meds Active 2020-0 Dione assistance 05-07 [place] required 08:50: [id number] 00 Medication injectable Meds Active 2019-0 Dione med 05-07 [place] assistance 08:50: [id number] required 00 Medication knowledge/s Meds Active 2019-0 Dione kill 05-07 [place] deficit: pt 08:50: [id number] 00 Musculoskel transfer Musculoske Active 2019- Dione etal assistance letal 05-07 [place] required 08:50: [id number] 00 Bed transfer PT/OT: Bed Active 2019-0 Peter Mobility/Tr deficit: Mobility/T 3-12 autumn Martinez sit/stand ransfer 13:00: PT 00 [id number] Bed transfer PT/OT: Bed Active 2019-0 Peter Mobility/Tr deficit: Mobility/T 3-12 autumn Martinez standing ransfer 13:00: PT pivot 00 [id number] Bed transfer PT/OT: Bed Active 2019-0 Peter Mobility/Tr deficit: Mobility/T 3-12 autumn Martinez toilet/comm ransfer 13:00: PT ode 00 [id number] Bed transfer PT/OT: Bed Active 2019-0 Peter Mobility/Tr deficit: Mobility/T 3-12 autumn Martinez shower/tub ransfer 13:00: PT 00 [id number] Bed knowledge/s PT/OT: Bed Active 2019-0 Peter Mobility/Tr kill Mobility/T 3-12 autumn Martinez deficit: pt ransfer 13:00: PT 00 [id number] Gait/Locomo knowledge/s PT/OT: Active 2019- Peter tion kill Gait/Locom 3-12 Juan, problems deficit: pt otion 13:00: PT 00 [id number] Gait/Locomo gait PT/OT: Active 2020-0 Peter tion deficit Gait/Locom 3-12 Juan, problems otion 13:00: PT 00 [id number] Integument skin Integument Active 2019-0 Jeni integrity 3-20 Kevin risk 12:20: [id number] Nutrition knowledge/s Nutrition Active 2020-0 Caitlin kill 3-20 Carrier RN deficit: pt 12:20: 00 Nutrition knowledge/s Nutrition Active 2020-0 Caitlin kill 3-20 Carrier RN deficit: cg 12:20: 00 Nutrition changing Nutrition Active Jeni weight/appe 3-20 Kevin chun 12:20: [id number] 00 Elimination bowel Eliminatio Active Caitlin incontinenc [...] TORRES million million unit powder unit powder [place] 3-6-9 [place] 3-6-9 2019- Yes Midura Unknown Unknown 1,200 [...] Midura Unknown Unknown Solostar Solostmary kay 05-26 [place] TORRES U-100 U-100 Insulin 100 Insulin 100 [...]
--- OUTSIDE RECORDS SUMMARY | 2019-06-09 08:42 | XMS REPORT ---
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 Caitlin (current) (current) Carrier [...] Pain Mgmt Active 2020-0 Dione pain 05-07 [place] 08:50: [id number] 00 Cardio edema Cardiovasc Active 2020-0 Dione ular 05-07 [place] 08:50: [id number] 00 Respiratory dyspnea Respirator Active 2020-0 Dione present y 05-07 [place] 08:50: [id number] 00 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 05-07 [place] dependence 08:50: [id number] 00 Endo/Satya diabetic Endo/Satya Active 2020-0 Dione foot care 05-07 [place] 08:50: [id number] 00 Nutrition nutritional Nutrition Active 2020-0 Dione restriction 05-07 [place] s 08:50: [id number] 00 Elimination diarrhea Eliminatio Active 2020-0 Dione n 05-07 [place] 08:50: [id number] 00 Activity ADL Activity Active 2020-0 Dione assistance 05-07 [place] required 08:50: [id number] 00 Activity self-care Activity Active 2020-0 Dione deficit 05-07 [place] 08:50: [id number] 00 Safety structural Safety Active 2020-0 Dione barriers 05-07 [place] present 08:50: [id number] 00 Safety fall risk Safety Active 2020-0 Dione factor 05-07 [place] present 08:50: [id number] 00 Safety risk for Safety Active 2020-0 Dione hospitaliza 05-07 [place] tion 08:50: [id number] 00 Safety can be left Safety Active 2020-0 Dione alone for 05-07 [place] only short 08:50: [id number] periods 00 Medication oral med Meds Active 2020-0 Dione assistance 05-07 [place] required 08:50: [id number] 00 Medication injectable Meds Active 2019-0 Dione med 05-07 [place] assistance 08:50: [id number] required 00 Medication knowledge/s Meds Active 2019-0 Dione kill 05-07 [place] deficit: pt 08:50: [id number] 00 Musculoskel transfer Musculoske Active 2019- Dione etal assistance letal 05-07 [place] required 08:50: [id number] 00 Bed transfer PT/OT: Bed Active 2019-0 Peter Mobility/Tr deficit: Mobility/T 3-12 autumn Martinez sit/stand ransfer 13:00: PT 00 [id number] Bed transfer PT/OT: Bed Active 2019-0 Peter Mobility/Tr deficit: Mobility/T 3-12 autumn Martinez standing ransfer 13:00: PT pivot 00 [id number] Bed transfer PT/OT: Bed Active 2019-0 Peter Mobility/Tr deficit: Mobility/T 3-12 autumn Martinez toilet/comm ransfer 13:00: PT ode 00 [id number] Bed transfer PT/OT: Bed Active 2019-0 Peter Mobility/Tr deficit: Mobility/T 3-12 autumn Martinez shower/tub ransfer 13:00: PT 00 [id number] Bed knowledge/s PT/OT: Bed Active 2019-0 Peter Mobility/Tr kill Mobility/T 3-12 autumn Martinez deficit: pt ransfer 13:00: PT 00 [id number] Gait/Locomo knowledge/s PT/OT: Active 2019- Peter tion kill Gait/Locom 3-12 Juan, problems deficit: pt otion 13:00: PT 00 [id number] Gait/Locomo gait PT/OT: Active 2020-0 Peter tion deficit Gait/Locom 3-12 Juan, problems otion 13:00: PT 00 [id number] Integument skin Integument Active 2019-0 Jeni integrity 3-20 Kevin risk 12:20: [id number] 00 Nutrition knowledge/s Nutrition Active 2020-0 Caitlin kill 3-20 Carrier RN deficit: pt 12:20: 00 Nutrition knowledge/s Nutrition Active 2020-0 Caitlin kill 3-20 Carrier RN deficit: cg 12:20: 00 Nutrition changing Nutrition Active Jeni weight/appe 3-20 Kevin chun 12:20: [id number] 00 Elimination bowel Eliminatio Active Caitlin incontinenc [...] TORRES million million unit powder unit powder [place] 3-6-9 [place] 3-6-9 2019- Yes Midura Unknown Unknown 1,200 [...]
--- OUTSIDE RECORDS SUMMARY | 2019-06-09 08:43 | XMS REPORT ---
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 Hypertensiv Hypertensiv Diagnosis Active Caitlin e chronic e chronic 2-21 Carrier RN kidney kidney disease disease with stage with stage 1 through 1 through stage 4 stage 4 chronic chronic kidney kidney disease, or disease, or unspecified unspecified chronic chronic kidney kidney disease disease Chronic Chronic Diagnosis Active Caitlin kidney kidney 2-21 Carrier RN disease, disease, stage 4 stage 4 (severe) (severe) Anemia in Anemia in Diagnosis Active Caitlin chronic chronic 2-21 Carrier RN kidney kidney disease disease Unspecified Unspecified Diagnosis Active Caitlin cirrhosis cirrhosis 2-21 Carrier RN of liver of liver Other Other Diagnosis Active 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 RN syndrome syndrome Primary Primary Diagnosis Active Caitlin pulmonary pulmonary Carrier RN hypertensio hypertensio n n Cardiomegal Cardiomegal Diagnosis Active Caitlin y y Carrier RN Nonalcoholi Nonalcoholi Diagnosis Active Caitlin c c Carrier RN steatohepat steatohepat itis (GODFREY) itis (GODFREY) Acute and Acute and Diagnosis Active Caitlin subacute subacute Carrier RN hepatic hepatic failure failure without without coma coma Gastro-esop Gastro-esop Diagnosis Active Caitlin hageal hageal Carrier RN reflux reflux disease disease without without esophagitis esophagitis Gout, Gout, Diagnosis Active Caitlin unspecified unspecified Carrier RN Age-related Age-related Diagnosis Active Caitlin physical 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 Caitlin (current) (current) Carrier RN [...] RN (current) (current) drug drug therapy therapy Pain frequent Pain Mgmt Active 2020-0 Dione pain 05-07 [place] 08:50: [id number] 00 Cardio edema Cardiovasc Active 2020-0 Dione ular 05-07 [place] 08:50: [id number] 00 Respiratory dyspnea Respirator Active 2020-0 Dione present y 05-07 [place] 08:50: [id number] 00 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 05-07 [place] dependence 08:50: [id number] 00 Endo/Satya diabetic Endo/Satya Active 2020-0 Dione foot care 05-07 [place] 08:50: [id number] 00 Nutrition nutritional Nutrition Active 2020-0 Dione restriction 05-07 [place] s 08:50: [id number] 00 Elimination diarrhea Eliminatio Active 2020-0 Dione n 05-07 [place] 08:50: [id number] 00 Activity ADL Activity Active 2020-0 Dione assistance 05-07 [place] required 08:50: [id number] 00 Activity self-care Activity Active 2020-0 Dione deficit 05-07 [place] 08:50: [id number] 00 Safety structural Safety Active 2020-0 Dione barriers 05-07 [place] present 08:50: [id number] 00 Safety fall risk Safety Active 2020-0 Dione factor 05-07 [place] present 08:50: [id number] 00 Safety risk for Safety Active 2020-0 Dione hospitaliza 05-07 [place] tion 08:50: [id number] 00 Safety can be left Safety Active 2020-0 Dione alone for 05-07 [place] only short 08:50: [id number] periods 00 Medication oral med Meds Active 2020-0 Dione assistance 05-07 [place] required 08:50: [id number] 00 Medication injectable Meds Active 2020-0 Dione med 05-07 [place] assistance 08:50: [id number] required 00 Medication knowledge/s Meds Active 2019-0 Dione kill 3-12 [place] deficit: pt 08:50: [id number] 00 Musculoskel transfer Musculoske Active 2019-0 Dione etal assistance letal 3-12 [place] required 08:50: [id number] 00 Bed transfer PT/OT: Bed Active 2020-0 Peter Mobility/Tr deficit: Mobility/T 3-12 autumn Martinez sit/stand ransfer 13:00: PT 00 [id number] Bed transfer PT/OT: Bed Active 2019-0 Peter Mobility/Tr deficit: Mobility/T 3-12 autumn Martinez standing ransfer 13:00: PT pivot 00 [id number] Bed transfer PT/OT: Bed Active 2019-0 Peter Mobility/Tr deficit: Mobility/T 3-12 autumn Martinez toilet/comm ransfer 13:00: PT ode 00 [id number] Bed transfer PT/OT: Bed Active 2019-0 Peter Mobility/Tr deficit: Mobility/T 3-12 autumn Martinez shower/tub ransfer 13:00: PT 00 [id number] Bed knowledge/s PT/OT: Bed Active 2019-0 Peter Mobility/Tr kill Mobility/T 3-12 autumn Martinez deficit: pt ransfer 13:00: PT 00 [id number] Gait/Locomo knowledge/s PT/OT: Active 2020-0 Peter tion kill Gait/Locom 3-12 Juan, problems deficit: pt otion 13:00: PT 00 [id number] Gait/Locomo gait PT/OT: Active 2020-0 Peetr tion deficit Gait/Locom 3-12 Juan, problems otion 13:00: PT 00 [id number] Nutrition knowledge/s Nutrition Active 2020-0 Caitlin kill 3-20 Carrier RN deficit: pt 12:20: 00 Nutrition knowledge/s Nutrition Active 2020-0 Caitlin kill 3-20 Carrier RN deficit: cg 12:20: 00 Elimination bowel Eliminatio Active 2020-0 Caitlin incontinenc n 3-20 Carrier RN e 12:20: 00 Elimination knowledge/s Eliminatio Active 2020-0 Caitlin kill n 3-20 Carrier RN deficit: pt 12:20: 00 Elimination knowledge/s Eliminatio Active 2020-0 Caitlin kill n 3-20 Carrier RN deficit: cg 12:20: 00 Neuro anxiety Neuro/Emot Active Caitlin present ion 3-20 Carrier RN 12:20: 00 Neuro depressive Neuro/Emot Active Caitlin feelings ion -20 Carrier RN present 12:20: 00 Neuro constant Neuro/Emot Active Caitlin confusion ion -20 Carrier RN 12:20: 00 Medication knowledge/s Meds Resolve 2019-05-16 Caitlin kill d 05-15 12:20:00 Carrier RN deficit: cg 12:20: 00 Medication potential Meds Resolve 2019-05-16 Caitlin clinically d 20 12:20:00 Carrier RN significant 12:20: medication 00 issue Musculoskel requires Musculoske Active Caitlin etal human letal -20 Carrier RN assist to 12:20: leave home [...] ferrous Yes Midura Unknown Unknown gluconate gluconate 05-07 Rafat TORRES 324 mg (38 324 mg (38 mg iron) mg iron) tablet tablet lactulose lactulose 2020- Yes Midura Unknown Unknown 10 gram/15 10 gram/15 05-07 Rafat TORRES mL (15 mL) mL (15 mL) oral oral solution solution Lantus Lantus 2020- Yes Midura Unknown Unknown Solostar Solostar 05-07 Rafat TORRES U-100 U-100 Insulin 100 Insulin 100 unit/mL (3 unit/mL (3 mL) mL) subcutaneou subcutaneou s pen s pen Metamucil Metamucil Yes Midura Unknown Unknown Fiber Thin Fiber Thin - Rafat TORRES 2 gram oral 2 gram oral wafer wafer nystatin nystatin 2020-0 Yes Midura Unknown Unknown (bulk) 50 (bulk) 50 3-12 MD,Rafat million million unit powder unit powder Maxwelton 3-6-9 Maxwelton 3-6-9 2019-0 Yes Midura Unknown Unknown 1,200 [...] Midura Unknown Unknown 10 gram/15 10 gram/15 3-20 MD,Rafat mL (15 mL) mL (15 mL) oral oral solution solution Xifaxan 550 Xifaxan 550 2019-0 Yes Midura Unknown Unknown mg tablet mg tablet 3-20 MD,Rafat Lantus Lantus 0 Yes Midura Unknown Unknown Solostar Solostar 3-20 MD,Rafat U-100 U-100 Insulin 100 Insulin 100 unit/mL (3 unit/mL (3 mL) mL) subcutaneou subcutaneou s pen s pen Vital Signs Vital Name Observation Time Observation Value Comments SYSTOLIC mm[Hg] 2019-05-22 18:11:04 126 mm[Hg] mm[Hg] Method: Sit SYSTOLIC mm[Hg] 2019-05-08 18:10:50 152 mm[Hg] mm[Hg] Method: Stand DIASTOLIC mm[Hg] 2019-05-22 18:11:04 78 mm[Hg] mm[Hg] Method: Sit DIASTOLIC mm[Hg] 2019-05-08 18:10:50 82 mm[Hg] mm[Hg] Method: Stand PULSE 2019-05-22 18:11:04 66 /min /min RESP RATE 2019-05-22 18:11:04 16 /min /min TEMP 2019-05-22 18:11:04 98.2 [degF] Procedures This patient has no known procedures. Results This patient has no known results.
--- OUTSIDE RECORDS SUMMARY | 2019-06-09 08:43 | XMS REPORT | Continuity of Care Document ---
:1945 External Reference #:[id number] Author Name Janelle Devi DO (transmitted by agent of provider Leatha Schultz) Address [address] [place] [id number] Care Team Providers Name Role Phone Rafat Senior MD - Family Medicine Care Team Information [place] Problems Description No Information Available Social History [...] apply twice a day Unknown until resolved. [id number]/GM Cream Allopurinol 1 by mouth every Unknown [...] Unknown 81mg day Tablets DR JERNIGAN Unknown [place]-3 Fish Oil take 1 tab by mouth [...] Result H/L Range Note Basic Metabolic 04/29/2019 [facility] Sodium 138 mmol/L Normal 135-145 1 Panel [address] [place] [address] [phone] Potassium 3.6 mmol/L Normal 3.5-5.0 Chloride 99 mmol/L Low 101-111 Co2 Carbon Dioxide 32 mmol/L Normal 22-32 Anion Gap 7 mmol/L Normal 2-11 Glucose 193 mg/dL High 70-100 Blood Urea Nitrogen 33 mg/dL High 6-24 Creatinine 1.86 mg/dL High 0.51-0.95 BUN/Creatinine Ratio 17.7 Normal 8-20 Calcium 8.3 mg/dL Low 8.6-10.3 Egfr Non- 26.6 >60 Egfr 32.1 >60 2 Comp Metabolic 04/23/2019 [facility] Sodium 139 mmol/L Normal 135-145 Panel [address] [place] [address] [phone] Potassium 3.7 mmol/L Normal 3.5-5.0 Chloride 99 [...] Egfr 28.7 >60 3 Laboratory test 04/23/2019 [facility] Ammonia 86 mcmol/L High 16-[address] [place] [address] [phone] Laboratory test 04/22/2019 [facility] Pathologist (SEE NOTE) 4, [address] [place] [address] [phone] Manual 04/22/2019 [facility] Neutrophil % 58.0 % Differential [address] [place] [address] [phone] Lymphocytes % 25.0 % Monocytes % 10.0 % Eosinophils % 6.0 % Variant Lymph % 1.0 % Normal 0-6 Hypochromasia 1+ Anisocytosis 2+ Target Cells 1+ Stomatocytes 1+ CBC Auto 04/22/2019 [facility] White Blood 5.7 10^3/uL Normal 3.5-10.[address] [place] [address] [phone] Red Blood Count 2.47 10^6/uL Low 3.70-4.87 [...] Blood Cells % 0.0 Laboratory test 04/22/2019 [facility] Prealbumin 5 mg/dL Low 18-38 6 finding [address] [place] [address] [phone] Basic Metabolic 04/22/2019 [facility] Sodium 139 mmol/L Normal 135-145 Panel [address] [place] [address] [phone] Potassium 4.2 mmol/L Normal 3.5-5.0 Chloride 98 mmol/L Low 101-111 Co2 Carbon Dioxide 33 mmol/L High 22-32 Anion Gap 8 mmol/L Normal 2-11 Glucose 176 mg/dL High 70-100 Blood Urea Nitrogen 42 mg/dL High 6-24 Creatinine 2.08 mg/dL High 0.51-0.95 BUN/Creatinine Ratio 20.2 High 8-20 Calcium 8.9 mg/dL Normal 8.6-10.3 Egfr Non- 23.3 >60 Egfr 28.2 >60 7 Laboratory test 04/22/2019 [facility] Ammonia TNP mcmol/L 16- 53 8, 9 finding [address] [place] [address] [phone] Comp Metabolic 04/22/2019 [facility] Sodium 137 mmol/L Normal 135-145 Panel [address] [place] [address] [phone] Potassium 3.9 mmol/L Normal 3.5-5.0 Chloride 97 [...] 28.9 >60 10 Type & Screen 04/02/2019 [facility] Patient Blood Type A Positive [address] [place] [address] [phone] Antibody Screen NEGATIVE Laboratory test 04/02/2019 [facility] Packed Cells SEE RESULTS [address] BELO <[place] [address] NOTE> [phone] Urine Culture And 03/27/2019 [facility] Urine Culture SEE RESULT [address] [place] [address] [phone] Laboratory test 03/27/2019 [facility] Pathologist (SEE NOTE) [address] [place] [address] [phone] Cell Morphology 03/27/2019 [facility] Macrocytosis 3+ [address] [place], [place] [id number] [phone] Anisocytosis 2+ Target Cells 1+ Laboratory test 03/27/2019 [facility] Ferritin 117.2 ng/mL Normal 11-[address] [place] [address] [phone] B-Type Natriuretic Peptide BNP 839 pg/mL High <=100 Iron & Iron Binding 03/27/2019 [facility] Iron 105 g/dL Normal 50-[address] [place], [place] [id number] [phone] Unsaturated Iron Binding < 209 g/dL Total Iron Binding Capacity 224 g/dL Low 250-450 Transferrin 160 mg/dL Low 203-362 % Iron Saturation 47 % Normal 15-55 Laboratory test 03/27/2019 [facility] Hemoglobin A1c 5.1 % Normal 4.0-5.[address] (Glyco HGB) [place] [address] [phone] Albumin 2.0 g/dL Low 3.2-5.2 Urinalysis Profile 03/27/2019 [facility] Urine Color Yellow [address] [place] [address] [phone] Urine Appearance Clear Urine Specific [place] 1.012 Normal 1.010-1.030 Urine pH 5.0 Normal [...] Cell Present Abnormal Absent Basic Metabolic 03/27/2019 [facility] Sodium 138 mmol/L Normal 135-[address] [place] [address] [phone] Co2 Carbon Dioxide 17 mmol/L Low 22-32 Glucose 110 mg/dL High 70-100 Blood Urea Nitrogen 52 mg/dL High 6-24 Creatinine 5.41 mg/dL High 0.51-0.95 BUN/Creatinine Ratio 9.6 Normal 8-20 Calcium 8.3 mg/dL Low 8.6-10.3 Egfr Non- 7.7 >60 Egfr 9.4 >60 16 Potassium 5.5 mmol/L High 3.5-5.0 Chloride 113 mmol/L High 101-111 Anion Gap 8 mmol/L Normal 2-11 CBC Auto 03/27/2019 [facility] White Blood 6.7 10^3/uL Normal 3.5-10.[address] [place] [address] [phone] Red Blood Count 2.17 10^6/uL Low 3.70-4.87 [...] Blood Cells % 0.2 Neph Routine 03/27/2019 [facility] Total Protein Random 43 mg/ dL [address] [place] [address] [phone] Creatinine Random Urine 117.28 mg/dL Laboratory 02/16/2019 [facility] Lactic Acid 5.3 Critical 0.5- 2.0 18 test finding [address] mmol/[place] [address] [phone] Influenza A & 02/16/2019 [facility] Flu AB (SEE 19, B Request [address] Disclaimer NOTE) 20 [place] [address] [phone] Influenza A Molecular NEGATIVE Negative Influenza B Molecular NEGATIVE Negative 21 1 [id number] 2 Because ethnic data is not always [...] 5 Kidney failure <15 (or dialysis) 4 [id number] 5 Macrocytic anemia. Mild thrombocytopenia. No evidence of hemolytic process. Reviewed by Mónica Snow MD 6 [id number] 7 Because ethnic data is not always [...] 5 Kidney failure <15 (or dialysis) 8 [id number] Unable to report test result due [...] ISSUES PER PT 12 SEE RESULTS BELOW [id number] AP PC TRANSFUSED 04/02/19 2324 [id number] AP PC TRANSFUSED 04/03/19 0936 [id number] AP PC TRANSFUSED 04/04/1928 [id number] AP PC TRANSFUSED 04/04/19 0935 13 SEE RESULT BELOW Name: BONNIE AGUILERA : [address]: Marlon Beard MD Acct: [id number] Unit: [id number] AGE: 73 Location: LAB Re03/27/19 SEX: F Status: REG REF SPEC: [id number] CORINA: 03/27/19-[address]: Marlon Beard MD REQ: [id number] RECD: 03/27/19-1437 STATUS: COMP _ SOURCE: URINE SPDESC: ORDERED: Urine Culture Procedure Result Reported Site Urine Culture Final 03/28/19- 1406 ML No Growth (<1,000 CFU/mL) * ML - Main Lab . END OF REPORT DEPARTMENT OF PATHOLOGY, [address] [place] [address] Nic Weber M.D. Director [facility] # [id number] 14 Moderate macrocytic anemia with thrombocytopenia noted. Clinical correlation suggested. Additional studies is warranted. Reviewed by Dr. Weber 15 Therapeutic target for the treatment of diabetes mellitus patients is <7% HBA1C, and in selective patients <6.0%. Please refer to [place] [employer] diabetic care guidelines for further [...] 02/19/19. 18 Critical Result LACT:5.3 Called to [id number] at: 22:01:07 by:[id number] Read back by:[id number] ERICA Severe Sepsis and Septic Shock Management Bundle Measure requires all lactic acids initially measuring >2.0 mmol/L be repeated. Critical Result LACT:5.3 Called to [id number] at: 22:01:07 by:[id number] Read back by:[id number] [facility] Severe Sepsis and Septic Shock Management Bundle Measure requires all lactic acids initially measuring >2.0 mmol/L be repeated. 19 NASAL 20 Suboptimal collection technique may reduce sensitivity of test. Refer to the [facility] Test Catalog for collection information: [email or web address] As with all diagnostic procedures, the laboratory results obtained should be used in conjunction with other clinical information available to the physician, including confirmation by another method, as applicable. 21 Business Intelligence Consultant: [id number] Procedures Date Code Description Status 02/18/2019 71782 Moderate Sedation Services; Same Phys Intl 15 Mins; PT >= Completed 5 Years 02/18/2019 14081 Color Flow Doppler/Interp & Reprt Completed 02/18/2019 29185 Pulse Wave/Continuous-Interp.RPT Completed 02/18/2019 60131 Echocardiography, Transesophageal, Real Time W/Image 2D Completed W/W/O M-M 01/02/2019 88525 ECHO Transthorasic Realtime 2D W Doppler & Color Flow Hosp Completed Medical Devices Description No Information Available Encounters Type Date Location Provider Dx Diagnosis Office Visit 05/14/2019 [facility] Janelle Devi, K72.90 Hepatic failure, 2:10p Assoc,pc [...] syndrome D64.9 Anemia, unspecified Office Visit 05/13/2019 2:09p [facility] Janelle R41.82 Altered mental Assoc,theron Devi, DO status, Hospitalists unspecified 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 D64.9 Anemia, unspecified 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 N18.9 Chronic kidney disease, unspecified Office Visit 04/29/2019 9:00a [place] [facility] Dang, R54 Age- related physical MD debility N18.4 Chronic kidney disease, stage 4 (severe) D63.1 Anemia in chronic kidney disease K74.60 Unspecified cirrhosis of liver K29.61 Other gastritis with bleeding R18.8 Other ascites E11.22 Type 2 diabetes mellitus w diabetic chronic kidney disease Z68.43 Body mass index (BMI) 50.0-59.9, adult Office Visit 04/21/2019 9:30a [place] [facility] Dang, R54 Age- related physical MD debility N18.4 Chronic kidney disease, stage 4 (severe) D63.1 Anemia in chronic kidney disease K74.60 Unspecified cirrhosis of liver K29.61 Other gastritis with bleeding R18.8 Other ascites K72.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, unspecified without coma E11.22 Type 2 diabetes mellitus w diabetic chronic kidney disease Z68.43 Body mass index (BMI) 50.0-59.9, adult Office Visit 04/18/2019 [facility] K72.90 Hepatic failure, 3:26p Assoctheron MD unspecified Hospitalists without coma N17.9 Acute kidney failure, unspecified I50.9 Heart failure, unspecified D64.9 Anemia, unspecified E11.9 Type 2 diabetes mellitus without complications G89.29 Other chronic pain Office Visit 04/18/2019 10:16a [facility]phrology Meche An, N17.9 Acute kidney MD failure, unspecified N18.4 Chronic kidney disease, stage 4 (severe) Office Visit 04/17/2019 [facility] K72.90 Hepatic failure, 3:26p Asstheron méndez MD unspecified Hospitalists without coma N17.9 Acute kidney failure, unspecified D64.9 Anemia, unspecified G89.4 Chronic pain syndrome Office Visit 04/16/2019 3:25p [facility] K72.90 Hepatic failure, Assoctheron MD [...] kidney disease, unspecified Office Visit 04/15/2019 3:25p [facility] Katey Dilbenjamin, K72.90 Hepatic failure, Assoctheron MD unspecified Hospitalists without coma N17.9 Acute kidney failure, unspecified D64.9 Anemia, unspecified G89.4 Chronic pain syndrome Office Visit 04/15/2019 10:15a [facility]rology Meche Haynes Negoi, N17.9 Acute kidney MD failure, unspecified Office Visit 04/14/2019 3:25p [facility] K72.90 Hepatic failure, Assoc,theron Motta MD unspecified Hospitalists without coma N17.9 Acute kidney failure, unspecified D64.9 Anemia, unspecified K27.9 Peptic ulc, site unsp, unsp as ac or chr, w/o hemor or perf Office Visit 04/14/2019 10:15a [facility]rology Meche Haynes N17.9 Acute kidney MD Juve failure, unspecified Office Visit 04/13/2019 3:24p [facility] K72.90 Hepatic failure, Assoc,pc MD Rodrigue unspecified Hospitalists without coma N17.9 Acute kidney failure, unspecified D64.9 Anemia, unspecified K27.9 Peptic ulc, site unsp, unsp as ac or chr, w/o hemor or perf G89.4 Chronic pain syndrome Z79.4 senior care (current) use of insulin E11.9 Type 2 diabetes mellitus without complications Office Visit 04/13/2019 [facility] Marlon Gutierrez N17.9 Acute kidney 1:52p MD Kisha failure, unspecified Office Visit 04/12/2019 [facility] Marlon Jarvis. N17.9 Acute kidney 1:52p MD Kisha failure, unspecified Office Visit 04/11/2019 [facility] K72.90 Hepatic failure, 3:23p Asstheron méndez MD unspecified Hospitalists without coma N17.9 Acute kidney failure, unspecified D64.9 Anemia, unspecified K27.9 Peptic ulc, site unsp, unsp as ac or chr, w/o hemor or perf G89.4 Chronic pain syndrome Office Visit 04/11/2019 [facility] Marlon Gutierrez N17.9 Acute kidney 1:52p MD Kisha failure, unspecified [facility] K[facility] Hepatic failure, 3:23p Assoc,pc Antione Finnegan. 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 I50.30 Unspecified diastolic (congestive) heart failure E11.9 Type 2 diabetes mellitus without complications Office Visit 04/10/2019 [facility] Marlon Gutierrez N17.9 Acute kidney 9:09a MD Kisha failure, unspecified Office Visit 04/09/2019 [facility] Katey Lopez MD K72.90 Hepatic failure, 3:23p [...] kidney disease, unspecified Office Visit 04/08/2019 3:22p [facility] Katey Lopez, K72.90 Hepatic failure, Assoc,theron TORRES [...] kidney disease, unspecified Office Visit 04/08/2019 10:39a [facility] Marlon Gutierrez N17.9 Acute kidney MD Kisha failure, unspecified Office Visit 04/07/2019 1:48p [facility] Diana Vega MD K72.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, unspecified without coma E72.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, unspecified K75.81 Nonalcoholic steatohepatitis ([place]) I10 Essential (primary) hypertension Office Visit 04/07/2019 9:20a [facility] Marlon Gutierrez N17.9 Acute kidney MD Kisha failure, unspecified Office Visit 04/06/2019 1:47p [facility] Rosaline K72.90 Hepatic failure , Stocking, CARDIOPULMONARY TECHNICIAN unspecified without coma E72.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, unspecified K75.81 Nonalcoholic steatohepatitis ([place]) I10 Essential (primary) hypertension Office Visit 04/05/2019 10:13a [facility] Nephrology Meche An, N17.9 Acute kidney MD failure, unspecified N18.4 Chronic kidney disease, stage 4 (severe) Office Visit 04/05/2019 1:47p [facility] Rosaline K72.90 Hepatic failure , Stocking, CARDIOPULMONARY TECHNICIAN unspecified without coma D63.8 Anemia in other chronic diseases classified elsewhere E72.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, unspecified E87.70 Fluid overload, unspecified Office Visit 04/04/2019 2:53p [facility]rology Meche An, N17.9 Acute kidney MD failure, unspecified N18.4 Chronic kidney disease, stage 4 (severe) E87.70 Fluid overload, unspecified D63.1 Anemia in chronic kidney disease Office Visit 04/04/2019 1:47p [facility] Mohit Diamond D64.9 Anemia, Assoc,CAMILO Vaughn unspecified Hospitalists N17.9 Acute kidney failure, unspecified K72.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, unspecified without coma K75.81 Nonalcoholic steatohepatitis ([place]) Office Visit 04/03/2019 1:46p [place] [place] Mohit Diamond D63.1 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,CAMILO Vaughn chronic kidney Hospitalists disease N17.9 Acute kidney failure, unspecified E11.22 Type 2 diabetes mellitus w diabetic chronic kidney disease N18.9 Chronic kidney disease, unspecified Office Visit 04/03/2019 2:35p [facility] Marlon Gutierrez N17.9 Acute kidney MD Kisha failure, unspecified D63.1 Anemia in chronic kidney disease Office Visit 04/02/2019 3:11p [facility] D63.1 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,pc Merari, DENTAL SERVICES DIRECTOR chronic kidney Hospitalists disease N17.9 Acute kidney failure, unspecified 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 N18.9 Chronic kidney disease, unspecified Office Visit 03/27/2019 2:00p [facility] Marlon Gutierrez N18.4 Chronic kidney MD Kisha disease, stage 4 (severe) K74.60 Unspecified cirrhosis of liver E11.22 Type 2 diabetes mellitus w diabetic chronic kidney disease E87.70 Fluid overload, unspecified R06.02 Shortness of breath Z68.43 Body mass index (BMI) 50.0-59.9, adult Office Visit 02/21/2019 10:17a [facility] Jessica Luther R78.81 Bacteremia Infectious Diseases Mery Bowen I89.0 Lymphedema, not elsewhere classified Office Visit 02/21/2019 [facility] Jessica Valdez, A40.8 Other 1:14p Assoc,pc DENTAL SERVICES DIRECTOR streptococcal Hospitalists sepsis K72.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, unspecified without coma R18.8 Other ascites D63.1 Anemia in chronic kidney disease N18.9 Chronic kidney disease, unspecified 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 E78.5 Hyperlipidemia, unspecified Office Visit 02/20/2019 [facility] A49.1 Streptococcal 1:13p Assoctheron MD infection, Hospitalists unspecified site D64.9 Anemia, unspecified I86.4 Gastric varices D69.6 Thrombocytopenia, unspecified E11.9 Type 2 diabetes mellitus without complications G89.4 Chronic pain syndrome Office Visit 02/20/2019 10:16a [facility] Jessica Luther R78.81 Bacteremia Infectious Diseases Mery Bowen I89.0 Lymphedema, not elsewhere classified Office Visit 02/19/2019 [facility] A49.1 Streptococcal 1:13p Asstheron méndez MD infection, Hospitalists unspecified site N17.9 Acute kidney failure, unspecified D64.9 Anemia, unspecified I86.4 Gastric varices D69.6 Thrombocytopenia, unspecified E11.9 Type 2 diabetes mellitus without complications G89.4 Chronic pain syndrome Office Visit 02/18/2019 [facility] Janelle A49.1 Streptococcal 1:12p Assoc,pc Marito, infection, Hospitalists unspecified site R65.20 Severe sepsis without septic shock D64.9 Anemia, unspecified N17.9 Acute kidney failure, unspecified D69.6 Thrombocytopenia, unspecified E11.9 Type 2 diabetes mellitus without complications G89.4 Chronic pain syndrome R53.1 Weakness Office Visit 02/17/2019 10:14a [facility] Anmol Luther R78.81 Bacteremia Infectious Diseases Mery Bowen I89.0 Lymphedema, not elsewhere classified E11.22 Type 2 diabetes mellitus w diabetic chronic kidney disease N18.9 Chronic kidney disease, unspecified Office Visit 02/17/2019 1:12p [facility] Janellerenzo Devi R78.81 Bacteremia Assoc, Hospitalists DO R65.20 Severe sepsis without septic shock N17.9 Acute kidney failure, unspecified D64.9 Anemia, unspecified D69.6 Thrombocytopenia, unspecified R53.1 Weakness G89.4 Chronic pain syndrome Office Visit 02/16/2019 [facility] Emily R50.9 Fever, 1:11p Assoc,pc ELOISA Whelan unspecified Hospitalists R53.1 Weakness N17.9 Acute kidney failure, unspecified D64.9 Anemia, unspecified Office Visit 01/03/2019 7:00a [facility] Rizwan Flores, R47.01 Aphasia Q21.1 Atrial septal defect E78.5 Hyperlipidemia, unspecified E66.9 Obesity, unspecified Office Visit 01/03/2019 11:01a [facility] Poppy Heather, G45.9 Transient Assoc,pc DENTAL SERVICES DIRECTOR cerebral ischemic Hospitalists attack, unspecified N17.9 Acute kidney failure, unspecified 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 N18.3 Chronic kidney disease, stage 3 (moderate) Office Visit 01/01/2019 7:00a [facility] Rizwan Sandra, R47.01 Aphasia R41.82 Altered mental status, unspecified Office Visit 01/01/2019 [facility] Jessica Valdez, G45.9 Transient 11:01a Assoc,pc DENTAL SERVICES DIRECTOR cerebral ischemic Hospitalists attack, unspecified D69.6 Thrombocytopenia, [...] Hepatic failure, unspecified without coma Janelle Devi, DO 05/14/2019 K75.81 Nonalcoholic steatohepatitis ([place]) Janelle Devi, DO 05/14/2019 I50.30 Unspecified diastolic (congestive) heart Janelle Senluis, DO failure 05/14/2019 I13.0 Hypertensive heart and chronic kidney Janelle Devi DO disease with heart failure and stage 1 through stage 4 chronic kidney disease, or unspecified chronic kidney disease 05/14/2019 N18.3 Chronic kidney disease, stage 3 Janelle Senner, DO (moderate) 05/14/2019 E11.22 Type 2 diabetes mellitus with diabetic Janelle Devi, DO chronic kidney disease 05/14/2019 G89.4 Chronic pain syndrome Janelle Senner, DO 05/14/2019 D64.9 Anemia, unspecified Janelle Senner, DO 05/13/2019 R41.82 Altered mental status, unspecified Janelle Senner, DO 05/13/2019 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 04/10/2019 G89.4 Chronic pain syndrome Rosio Finnegan, D.O. 04/10/2019 K27.9 Peptic ulcer, site unspecified, 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.4 manager long term care (current) use of insulin Katey Lopez [...] failure, unspecified without coma Rosaline Stocking , CARDIOPULMONARY TECHNICIAN 04/06/2019 E72.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, Rosaline Stocking, CARDIOPULMONARY TECHNICIAN unspecified 04/06/2019 K75.81 Nonalcoholic steatohepatitis ([place]) Rosaline Stocking, CARDIOPULMONARY TECHNICIAN 04/06/2019 I10 Essential (primary) hypertension Rosaline Stocking, CARDIOPULMONARY TECHNICIAN 04/05/2019 N17.9 Acute kidney failure, unspecified Meche An MD 04/05/2019 K72.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, unspecified without coma Rosaline Stocking , CARDIOPULMONARY TECHNICIAN 04/05/2019 N18.4 Chronic kidney disease, stage 4 (severe) Meche An MD 04/05/2019 D63.8 Anemia in other chronic diseases Rosaline Stocking, CARDIOPULMONARY TECHNICIAN classified elsewhere 04/05/2019 E72.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, Rosaline Stocking, CARDIOPULMONARY TECHNICIAN unspecified 04/05/2019 E87.70 Fluid overload, unspecified Rosaline Stocking, CARDIOPULMONARY TECHNICIAN 04/04/2019 D64.9 Anemia, unspecified CAMILO Cabezas 04/04/2019 [...] Anemia in chronic kidney disease Araceli Shortle, DENTAL SERVICES DIRECTOR 04/02/2019 N17.9 Acute kidney failure, unspecified Araceli Shortle, DENTAL SERVICES DIRECTOR 04/02/2019 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 chronic kidney disease with Araceli Shortle, DENTAL SERVICES DIRECTOR stage 1 through stage 4 chronic kidney disease, or unspecified chronic kidney disease 04/02/2019 N18.9 Chronic kidney disease, unspecified Arcaeli Shortle, DENTAL SERVICES DIRECTOR 03/27/2019 N18.4 Chronic kidney disease, stage 4 [...] 02/21/2019 A40.8 Other streptococcal sepsis Jessica Valdez, DENTAL SERVICES DIRECTOR 02/21/2019 I89.0 Lymphedema, not elsewhere classified Anmol [...] Senner, DO 02/16/2019 R50.9 Fever, unspecified Emily Mickleton, DENTAL SERVICES DIRECTOR 02/16/2019 R53.1 Weakness Emilyodell Whelan, DENTAL SERVICES DIRECTOR 02/16/2019 N17.9 Acute kidney failure, unspecified Emily Cleopatra, DENTAL SERVICES DIRECTOR 02/16/2019 D64.9 Anemia, unspecified Emily Cleopatra, DENTAL SERVICES DIRECTOR 01/03/2019 R47.01 Aphasia Rizwan Flores MD 01/03/2019 Q21.1 Atrial septal defect Rizwan Flores MD 01/03/2019 G45.9 Transient cerebral ischemic attack, Poppy Heather, DENTAL SERVICES DIRECTOR unspecified 01/03/2019 E78.5 Hyperlipidemia, unspecified Rizwan Flores MD 01/03/2019 E66.9 Obesity, unspecified Rizwan Flores MD 01/03/2019 N17.9 Acute kidney failure, unspecified Poppy Heather, DENTAL SERVICES DIRECTOR 01/03/2019 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 chronic kidney disease with Poppy Heather, DENTAL SERVICES DIRECTOR stage 1 through stage 4 chronic kidney disease, or unspecified chronic kidney disease 01/03/2019 N18.3 Chronic kidney disease, stage 3 Poppy Heather, DENTAL SERVICES DIRECTOR (moderate) 01/02/2019 I63.9 Cerebral infarction, unspecified Femi Aguirre M.D. 01/02/2019 G45.9 Transient cerebral ischemic attack, Poppy Heather, DENTAL SERVICES DIRECTOR unspecified 01/02/2019 N18.3 Chronic kidney disease, stage 3 Poppy Heather, DENTAL SERVICES DIRECTOR (moderate) 01/02/2019 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 chronic kidney disease with Poppy Heather, DENTAL SERVICES DIRECTOR stage 1 through stage 4 chronic kidney [...]
--- OUTSIDE RECORDS SUMMARY | 2019-06-09 08:43 | XMS REPORT ---
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 diabetes - Cici mellitus mellitus [id number] with with diabetic diabetic chronic chronic kidney kidney disease disease Hypertensiv Hypertensiv Diagnosis Active Mónica e chronic e chronic 04-18 Cici kidney kidney [id number] disease disease with stage with stage 1 through 1 through stage 4 stage 4 chronic chronic kidney kidney disease, or disease, or unspecified unspecified chronic chronic kidney kidney disease disease Chronic Chronic Diagnosis Active Mónica kidney kidney - Cici disease, disease, [id number] stage 4 stage 4 (severe) (severe) Anemia in Anemia in Diagnosis Active Mónica chronic chronic - Cici kidney kidney [id number] disease disease Unspecified Unspecified Diagnosis Active Mónica cirrhosis cirrhosis - Cici of liver of liver [id number] 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 Chronic Chronic Diagnosis Active Mónica pain pain Cici syndrome syndrome [id number] Primary Primary Diagnosis Active Mónica pulmonary pulmonary Cici hypertensio hypertensio [id number] n n Cardiomegal Cardiomegal Diagnosis Active Mónica y y Cici [id number] Nonalcoholi Nonalcoholi Diagnosis Active Mónica c c Cici steatohepat steatohepat [id number] itis (GODFREY) itis (GODFREY) Acute and Acute and Diagnosis Active Mónica subacute subacute Cici hepatic hepatic [id number] failure failure without without coma coma Gastro-esop Gastro-esop Diagnosis Active Mónica hageal hageal Cici reflux reflux [id number] disease disease without without esophagitis esophagitis Gout, Gout, Diagnosis Active Mónica unspecified unspecified Cici [id number] Age-related Age-related Diagnosis Active Mónica physical physical Cici debility debility 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 (current) (current) Cici use of use of [id number] insulin insulin Body mass Body mass Diagnosis Active Mónica index (BMI) index (BMI) Cici 50.0-59.9, 50.0-59.9, [id number] adult adult Personal Personal Diagnosis Active Mónica 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 Other long Other long Diagnosis Active Mónica term term Cici (current) (current) [id number] drug drug therapy therapy Pain frequent Pain Mgmt Active 2020-0 Dione pain 05-07 [place] 08:50: [id number] 00 Cardio edema Cardiovasc Active 2020-0 Dione ular 05-07 [place] 08:50: [id number] 00 Respiratory dyspnea Respirator Active 2020-0 Dione present y 05-07 [place] 08:50: [id number] 00 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 05-07 [place] dependence 08:50: [id number] 00 Endo/Satya diabetic Endo/Satya Active 2020-0 Dione foot care 05-07 [place] 08:50: [id number] 00 Nutrition nutritional Nutrition Active 2020-0 Dione restriction 05-07 [place] s 08:50: [id number] 00 Elimination diarrhea Eliminatio Active 2020-0 Dione n 05-07 [place] 08:50: [id number] 00 Activity ADL Activity Active 2020-0 Dione assistance 05-07 [place] required 08:50: [id number] 00 Activity self-care Activity Active 2020-0 Dione deficit 05-07 [place] 08:50: [id number] 00 Safety structural Safety Active 2020-0 Dione barriers 05-07 [place] present 08:50: [id number] 00 Safety fall risk Safety Active 2020-0 Dione factor 05-07 [place] present 08:50: [id number] 00 Safety risk for Safety Active 2020-0 Dione hospitaliza 05-07 [place] tion 08:50: [id number] 00 Safety can be left Safety Active 2019-0 Dione alone for 05-07 [place] only short 08:50: [id number] periods 00 Medication oral med Meds Active 2019-0 Dione assistance 05-07 [place] required 08:50: [id number] 00 Medication injectable Meds Active 2019-0 Dione med 05-07 [place] assistance 08:50: [id number] required 00 Medication knowledge/s Meds Active 2019-0 Dione kill 05-07 [place] deficit: pt 08:50: [id number] 00 Musculoskel transfer Musculoske Active 2019-0 Dione etal assistance letal 05-07 [place] required 08:50: [id number] 00 Bed transfer PT/OT: Bed Active 2020-0 Peter Mobility/Tr deficit: Mobility/T 3-12 autumn Martinez sit/stand ransfer 13:00: PT 00 [id number] Bed transfer PT/OT: Bed Active 2020-0 Peter Mobility/Tr deficit: Mobility/T 3-12 autumn Martinez standing ransfer 13:00: PT pivot 00 [id number] Bed transfer PT/OT: Bed Active 2020-0 Peter Mobility/Tr deficit: Mobility/T 3-12 autumn Martinez toilet/comm ransfer 13:00: PT ode 00 [id number] Bed transfer PT/OT: Bed Active 2020-0 Peter Mobility/Tr deficit: Mobility/T 3-12 autumn Martinez shower/tub ransfer 13:00: PT 00 [id number] Bed knowledge/s PT/OT: Bed Active 2020-0 Peter Mobility/Tr kill Mobility/T 3-12 autumn Martinez deficit: pt ransfer 13:00: PT 00 [id number] Gait/Locomo knowledge/s PT/OT: Active 2020-0 Peter tion kill Gait/Locom 3-12 Juan, problems deficit: pt otion 13:00: PT 00 [id number] Gait/Locomo gait PT/OT: Active 2020-0 Peter tion deficit Gait/Locom 3-12 Juan, problems otion 13:00: PT 00 [id number] Allergies, Adverse Reactions, Alerts Allergy Allergy Status [...] mg 300 mg 3-12 MD,Rafat tablet tablet nadolol 20 nadolol 20 2019-0 Yes Midura Unknown Unknown mg tablet mg tablet 3-12 MD,Rafat ferrous ferrous 2019-0 Yes Midura Unknown Unknown gluconate gluconate -12 MD,Rafat 324 mg (38 324 mg (38 mg iron) mg iron) tablet tablet lactulose lactulose Yes Midura Unknown Unknown 10 gram/15 10 gram/15 3-12 MDRafat mL (15 mL) mL (15 mL) oral oral solution solution Lantus Lantus Yes Midura Unknown Unknown Solostar Solostar -12 ,Rafat U-100 U-100 Insulin 100 Insulin 100 unit/mL (3 unit/mL (3 mL) mL) subcutaneou subcutaneou s pen s pen Metamucil Metamucil Yes Midura Unknown Unknown Fiber Thin Fiber Thin -12 Rafat TORRES 2 gram oral 2 gram oral wafer wafer nystatin nystatin Yes Midura Unknown Unknown (bulk) 50 (bulk) 50 3-12 Rafat TORRES million million unit powder unit powder [place] 3-6-9 [place] 3-6-9 Yes Midura Unknown Unknown 1,200 mg 1,200 mg 3-12 MD,Rafat capsule capsule pantoprazol pantoprazol Yes Midura [...]
--- OUTSIDE RECORDS SUMMARY | 2019-06-09 08:43 | XMS REPORT | Continuity of Care Document ---
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 [id number]/GM Cream Allopurinol 1 by mouth every Unknown [...] Unknown 81mg day Tablets DR JERNIGAN Unknown [place]-3 Fish Oil take 1 tab by mouth [...] Result H/L Range Note Basic Metabolic 04/29/2019 [facility] Sodium 138 mmol/L Normal 135-145 1 Panel [address] [place] [address] [phone] Potassium 3.6 mmol/L Normal 3.5-5.0 Chloride 99 mmol/L Low 101-111 Co2 Carbon Dioxide 32 mmol/L Normal 22-32 Anion Gap 7 mmol/L Normal 2-11 Glucose 193 mg/dL High 70-100 Blood Urea Nitrogen 33 mg/dL High 6-24 Creatinine 1.86 mg/dL High 0.51-0.95 BUN/Creatinine Ratio 17.7 Normal 8-20 Calcium 8.3 mg/dL Low 8.6-10.3 Egfr Non- 26.6 >60 Egfr 32.1 >60 2 Comp Metabolic 04/23/2019 [facility] Sodium 139 mmol/L Normal 135-145 Panel [address] [place] [address] [phone] Potassium 3.7 mmol/L Normal 3.5-5.0 Chloride 99 [...] Egfr 28.7 >60 3 Laboratory test 04/23/2019 [facility] Ammonia 86 mcmol/L High 16-[address] [place] [address] [phone] Laboratory test 04/22/2019 [facility] Pathologist (SEE NOTE) 4, [address] [place] [address] [phone] Manual 04/22/2019 [facility] Neutrophil % 58.0 % Differential [address] [place] [address] [phone] Lymphocytes % 25.0 % Monocytes % 10.0 % Eosinophils % 6.0 % Variant Lymph % 1.0 % Normal 0-6 Hypochromasia 1+ Anisocytosis 2+ Target Cells 1+ Stomatocytes 1+ CBC Auto 04/22/2019 [facility] White Blood 5.7 10^3/uL Normal 3.5-10.[address] [place] [address] [phone] Red Blood Count 2.47 10^6/uL Low 3.70-4.87 [...] Blood Cells % 0.0 Laboratory test 04/22/2019 [facility] Prealbumin 5 mg/dL Low 18-38 6 finding [address] [place] [address] [phone] Basic Metabolic 04/22/2019 [facility] Sodium 139 mmol/L Normal 135-145 Panel [address] [place] [address] [phone] Potassium 4.2 mmol/L Normal 3.5-5.0 Chloride 98 mmol/L Low 101-111 Co2 Carbon Dioxide 33 mmol/L High 22-32 Anion Gap 8 mmol/L Normal 2-11 Glucose 176 mg/dL High 70-100 Blood Urea Nitrogen 42 mg/dL High 6-24 Creatinine 2.08 mg/dL High 0.51-0.95 BUN/Creatinine Ratio 20.2 High 8-20 Calcium 8.9 mg/dL Normal 8.6-10.3 Egfr Non- 23.3 >60 Egfr 28.2 >60 7 Laboratory test 04/22/2019 [facility] Ammonia TNP mcmol/L 16- 53 8, 9 finding [address] [place] [address] [phone] Comp Metabolic 04/22/2019 [facility] Sodium 137 mmol/L Normal 135-145 Panel [address] [place] [address] [phone] Potassium 3.9 mmol/L Normal 3.5-5.0 Chloride 97 [...] 28.9 >60 10 Type & Screen 04/02/2019 [facility] Patient Blood Type A Positive [address] [place] [address] [phone] Antibody Screen NEGATIVE Laboratory test 04/02/2019 [facility] Packed Cells SEE RESULTS [address] BELO <[place] [address] NOTE> [phone] Urine Culture And 03/27/2019 [facility] Urine Culture SEE RESULT [address] [place] [address] [phone] Laboratory test 03/27/2019 [facility] Pathologist (SEE NOTE) [address] [place] [address] [phone] Cell Morphology 03/27/2019 [facility] Macrocytosis 3+ [address] [place], [place] [id number] [phone] Anisocytosis 2+ Target Cells 1+ Laboratory test 03/27/2019 [facility] Ferritin 117.2 ng/mL Normal 11-[address] [place] [address] [phone] B-Type Natriuretic Peptide BNP 839 pg/mL High <=100 Iron & Iron Binding 03/27/2019 [facility] Iron 105 g/dL Normal 50-[address] [place], [place] [id number] [phone] Unsaturated Iron Binding < 209 g/dL Total Iron Binding Capacity 224 g/dL Low 250-450 Transferrin 160 mg/dL Low 203-362 % Iron Saturation 47 % Normal 15-55 Laboratory test 03/27/2019 [facility] Hemoglobin A1c 5.1 % Normal 4.0-5.[address] (Glyco HGB) [place] [address] [phone] Albumin 2.0 g/dL Low 3.2-5.2 Urinalysis Profile 03/27/2019 [facility] Urine Color Yellow [address] [place] [address] [phone] Urine Appearance Clear Urine Specific [place] 1.012 Normal 1.010-1.030 Urine pH 5.0 Normal [...] Cell Present Abnormal Absent Basic Metabolic 03/27/2019 [facility] Sodium 138 mmol/L Normal 135-[address] [place] [address] [phone] Co2 Carbon Dioxide 17 mmol/L Low 22-32 Glucose 110 mg/dL High 70-100 Blood Urea Nitrogen 52 mg/dL High 6-24 Creatinine 5.41 mg/dL High 0.51-0.95 BUN/Creatinine Ratio 9.6 Normal 8-20 Calcium 8.3 mg/dL Low 8.6-10.3 Egfr Non- 7.7 >60 Egfr 9.4 >60 16 Potassium 5.5 mmol/L High 3.5-5.0 Chloride 113 mmol/L High 101-111 Anion Gap 8 mmol/L Normal 2-11 CBC Auto 03/27/2019 [facility] White Blood 6.7 10^3/uL Normal 3.5-10.[address] [place] [address] [phone] Red Blood Count 2.17 10^6/uL Low 3.70-4.87 [...] Blood Cells % 0.2 Neph Routine 03/27/2019 [facility] Total Protein Random 43 mg/ dL [address] [place] [address] [phone] Creatinine Random Urine 117.28 mg/dL Laboratory 02/16/2019 [facility] Lactic Acid 5.3 Critical 0.5- 2.0 18 test finding [address] mmol/[place] [address] [phone] Influenza A & 02/16/2019 [facility] Flu AB (SEE 19, B Request [address] Disclaimer NOTE) 20 [place] [address] [phone] Influenza A Molecular NEGATIVE Negative Influenza B Molecular NEGATIVE Negative 21 1 [id number] 2 Because ethnic data is not always [...] 5 Kidney failure <15 (or dialysis) 4 [id number] 5 Macrocytic anemia. Mild thrombocytopenia. No evidence of hemolytic process. Reviewed by Mónica Snow MD 6 [id number] 7 Because ethnic data is not always [...] 5 Kidney failure <15 (or dialysis) 8 [id number] Unable to report test result due [...] ISSUES PER PT 12 SEE RESULTS BELOW [id number] AP PC TRANSFUSED 04/02/19 2324 [id number] AP PC TRANSFUSED 04/03/19 0936 [id number] AP PC TRANSFUSED 04/04/1928 [id number] AP PC TRANSFUSED 04/04/19 0935 13 SEE RESULT BELOW Name: BONNIE AGUILERA : [address]: Marlon Beard MD Acct: [id number] Unit: [id number] AGE: 73 Location: LAB Re03/27/19 SEX: F Status: REG REF SPEC: [id number] CORINA: 03/27/19-[address]: Marlon Beard MD REQ: [id number] RECD: 03/27/19-7377 STATUS: COMP _ SOURCE: URINE SPDESC: ORDERED: Urine Culture Procedure Result Reported Site Urine Culture Final 03/28/19- 1406 ML No Growth (<1,000 CFU/mL) * ML - Main Lab . END OF REPORT DEPARTMENT OF PATHOLOGY, [address] [place] [address] Nic Weber M.D. Director [facility] # [id number] 14 Moderate macrocytic anemia with thrombocytopenia noted. Clinical correlation suggested. Additional studies is warranted. Reviewed by Dr. Weber 15 Therapeutic target for the treatment of diabetes mellitus patients is <7% HBA1C, and in selective patients <6.0%. Please refer to [place] [employer] diabetic care guidelines for further [...] 02/19/19. 18 Critical Result LACT:5.3 Called to [id number] at: 22:01:07 by:[id number] Read back by:[id number] ER[facility] Severe Sepsis and Septic Shock Management Bundle Measure requires all lactic acids initially measuring >2.0 mmol/L be repeated. Critical Result LACT:5.3 Called to [id number] at: 22:01:07 by:[id number] Read back by:[id number] [facility] Severe Sepsis and Septic Shock Management Bundle Measure requires all lactic acids initially measuring >2.0 mmol/L be repeated. 19 NASAL 20 Suboptimal collection technique may reduce sensitivity of test. Refer to the [facility] Test Catalog for collection information: [email or web address] As with all diagnostic procedures, the laboratory results obtained should be used in conjunction with other clinical information available to the physician, including confirmation by another method, as applicable. 21 Body Man: [id number] Procedures Date Code Description Status 02/18/2019 31425 Moderate Sedation Services; Same Phys Intl 15 Mins; PT >= Completed 5 Years 02/18/2019 83324 Color Flow Doppler/Interp & Reprt Completed 02/18/2019 32895 Pulse Wave/Continuous-Interp.RPT Completed 02/18/2019 90815 Echocardiography, Transesophageal, Real Time W/Image 2D Completed W/W/O M-M 01/02/2019 20525 ECHO Transthorasic Realtime 2D W Doppler & Color Flow Hosp Completed Medical Devices Description No Information Available Encounters Type Date Location Provider Dx Diagnosis Office Visit 05/13/2019 [facility] Janelle Devi, R41.82 Altered mental 2:09p Assoc,pc DO status, Hospitalists unspecified 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 D64.9 Anemia, unspecified 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 N18.9 Chronic kidney disease, unspecified Office Visit 04/29/2019 9:00a [facility] Celina Dang, R54 Age- related physical MD debility N18.4 Chronic kidney disease, stage 4 (severe) D63.1 Anemia in chronic kidney disease K74.60 Unspecified cirrhosis of liver K29.61 Other gastritis with bleeding R18.8 Other ascites E11.22 Type 2 diabetes mellitus w diabetic chronic kidney disease Z68.43 Body mass index (BMI) 50.0-59.9, adult Office Visit 04/21/2019 9:30a [facility] Celina Dang, R54 Age- related physical debility N18.4 Chronic kidney disease, stage 4 (severe) D63.1 Anemia in chronic kidney disease K74.60 Unspecified cirrhosis of liver K29.61 Other gastritis with bleeding R18.8 Other ascites K72.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, unspecified without coma E11.22 Type 2 diabetes mellitus w diabetic chronic kidney disease Z68.43 Body mass index (BMI) 50.0-59.9, adult Office Visit 04/18/2019 [facility] K72.90 Hepatic failure, 3:26p theron Escalante MD unspecified Hospitalists without coma N17.9 Acute kidney failure, unspecified I50.9 Heart failure, unspecified D64.9 Anemia, unspecified E11.9 Type 2 diabetes mellitus without complications G89.29 Other chronic pain Office Visit 04/18/2019 10:16a [facility] Nephrology Meche An, N17.9 Acute kidney MD failure, unspecified N18.4 Chronic kidney disease, stage 4 (severe) Office Visit 04/17/2019 [facility] K72.90 Hepatic failure, 3:26p theron Escalante MD unspecified Hospitalists without coma N17.9 Acute kidney failure, unspecified D64.9 Anemia, unspecified G89.4 Chronic pain syndrome Office Visit 04/16/2019 3:25p [facility] K72.90 Hepatic failure, Asstheron méndez MD unspecified Hospitalists without coma D64.9 Anemia, [...] kidney disease, unspecified Office Visit 04/15/2019 3:25p [facility] Katey Lopez, K72.90 Hepatic failure, Asstheron méndez MD unspecified Hospitalists without coma N17.9 Acute kidney failure, unspecified D64.9 Anemia, unspecified G89.4 Chronic pain syndrome Office Visit 04/15/2019 10:15a [facility] Nephrology Meche An, N17.9 Acute kidney MD failure, unspecified Office Visit 04/14/2019 3:25p [facility] K72.90 Hepatic failure, Assoctheron MD unspecified Hospitalists without coma N17.9 Acute kidney failure, unspecified D64.9 Anemia, unspecified K27.9 Peptic ulc, site unsp, unsp as ac or chr, w/o hemor or perf Office Visit 04/14/2019 10:15a [facility] Nephrology Meche Haynes N17.9 Acute kidney MD Juve failure, unspecified Office Visit 04/13/2019 3:24p [facility] K72.90 Hepatic failure, Assoc,theron Husain MD unspecified Hospitalists without coma N17.9 Acute kidney failure, unspecified D64.9 Anemia, unspecified K27.9 Peptic ulc, site unsp, unsp as ac or chr, w/o hemor or perf G89.4 Chronic pain syndrome Z79.4 jail (current) use of insulin E11.9 Type 2 diabetes mellitus without complications Office Visit 04/13/2019 [facility] Nephrology Marlon Jarvis. N17.9 Acute kidney 1:52p MD Kisha failure, unspecified Office Visit 04/12/2019 [facility] Nephrology Marlon Jarvis. N17.9 Acute kidney 1:52p MD Kisha failure, unspecified Office Visit 04/11/2019 [facility] K72.90 Hepatic failure, 3:23p theron Escalante MD unspecified Hospitalists without coma N17.9 Acute kidney failure, unspecified D64.9 Anemia, unspecified K27.9 Peptic ulc, site unsp, unsp as ac or chr, w/o hemor or perf G89.4 Chronic pain syndrome Office Visit 04/11/2019 [facility] Nephrology Marlon Gutierrez N17.9 Acute kidney 1:52p MD Kisha failure, unspecified Office Visit 04/10/2019 [facility] K72.90 Hepatic failure, 3:23p Assoctheron D.Brandy. 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 Nephrology Marlon Gutierrez N17.9 Acute kidney MD Kisha failure, unspecified Office Visit 04/07/2019 1:48p [facility] Diana Vega MD K72.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, unspecified without coma E72.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, unspecified K75.81 Nonalcoholic steatohepatitis ([place]) I10 Essential (primary) hypertension Office Visit 04/07/2019 9:20a [facility] Nephbrenda Gutierrez N17.9 Acute kidney MD Kisha failure, unspecified Office Visit 04/06/2019 1:47p [facility] Rosaline K72.90 Hepatic failure , Stocking, RX SPECIALIST unspecified without coma E72.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, unspecified K75.81 Nonalcoholic steatohepatitis ([place]) I10 Essential (primary) hypertension Office Visit 04/05/2019 10:13a [facility] Nephrology Meche An, N17.9 Acute kidney MD failure, unspecified N18.4 Chronic kidney disease, stage 4 (severe) Office Visit 04/05/2019 1:47p [facility] Rosaline K72.90 Hepatic failure , Stocking, RX SPECIALIST unspecified without coma D63.8 Anemia in other chronic diseases classified elsewhere E72.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, unspecified E87.70 Fluid overload, unspecified Office Visit 04/04/2019 2:53p [facility] Nephrology Meche An, N17.9 Acute kidney MD failure, unspecified N18.4 Chronic kidney disease, stage 4 (severe) E87.70 Fluid overload, unspecified D63.1 Anemia in chronic kidney disease Office Visit 04/04/2019 1:47p [facility] Lobo D64.9 Anemia, Assoc, CAMILO Ceballos unspecified Hospitalists N17.9 Acute kidney failure, unspecified K72.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, unspecified without coma K75.81 Nonalcoholic steatohepatitis ([place]) Office Visit 04/03/2019 1:46p [facility] Lobo D63.1 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, CAMILO Ceballos chronic kidney Hospitalists disease N17.9 Acute kidney failure, unspecified E11.22 Type 2 diabetes mellitus w diabetic chronic kidney disease N18.9 Chronic kidney disease, unspecified Office Visit 04/03/2019 2:35p [facility] Nephrology Marlon Gutierrez N17.9 Acute kidney MD Kisha failure, unspecified D63.1 Anemia in chronic kidney disease Office Visit 04/02/2019 3:11p [facility] Araceli D63.1 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,theron Gage NP chronic kidney Hospitalists disease N17.9 Acute kidney failure, unspecified 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 chronic kidney 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/unsp [facility] kdny N18.9 Chronic kidney disease, unspecified Office Visit 03/27/2019 2:00p [facility] Nephrology Marlon Gutierrez N18.4 Chronic kidney MD Kisha disease, stage 4 (severe) K74.60 Unspecified cirrhosis of liver E11.22 Type 2 diabetes mellitus w diabetic chronic kidney disease E87.70 Fluid overload, unspecified R06.02 Shortness of breath Z68.43 Body mass index (BMI) 50.0-59.9, adult Office Visit 02/21/2019 10:17a [facility] Jessica Luther R78.81 Bacteremia Infectious Diseases Mery Bowen I89.0 Lymphedema, not elsewhere classified Office Visit 02/21/2019 [facility] Jessica Valdez, A40.8 Other 1:14p Assoc,pc FORM TAMPING MACHINE OPERATOR streptococcal Hospitalists sepsis K72.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, unspecified without coma R18.8 Other ascites D63.1 Anemia in chronic kidney disease N18.9 Chronic kidney disease, unspecified 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 I89.0 Lymphedema, not elsewhere classified Office Visit 02/19/2019 [facility] A49.1 Streptococcal 1:13p Assoc,theron Olivera MD infection, Hospitalists unspecified site N17.9 Acute kidney failure, unspecified D64.9 Anemia, unspecified I86.4 Gastric varices D69.6 Thrombocytopenia, unspecified E11.9 Type 2 diabetes mellitus without complications G89.4 Chronic pain syndrome Office Visit 02/18/2019 [facility] Janelle A49.1 Streptococcal 1:12p Assoc,theron Devi DO infection, Hospitalists unspecified site R65.20 Severe sepsis without septic shock D64.9 Anemia, unspecified N17.9 Acute kidney failure, unspecified D69.6 Thrombocytopenia, unspecified E11.9 Type 2 diabetes mellitus without complications G89.4 Chronic pain syndrome R53.1 Weakness Office Visit 02/17/2019 10:14a [facility] Anmol Luther R78.81 Bacteremia Infectious Diseases Mery Bowen I89.0 Lymphedema, not elsewhere classified E11.22 Type 2 diabetes mellitus w diabetic chronic kidney disease N18.9 Chronic kidney disease, unspecified Office Visit 02/17/2019 1:12p [facility] Janelle Devi, R78.81 Bacteremia Assoc,pc Hospitalists DO R65.20 Severe sepsis without septic shock N17.9 Acute kidney failure, unspecified D64.9 Anemia, unspecified D69.6 Thrombocytopenia, unspecified R53.1 Weakness G89.4 Chronic pain syndrome Office Visit 02/16/2019 [facility] Emily R50.9 Fever, 1:11p Assoc,pc ELOISA Whelan unspecified Hospitalists R53.1 Weakness N17.9 Acute kidney failure, unspecified D64.9 Anemia, unspecified Office Visit 01/03/2019 7:00a [facility] Rizwan Flores, R47.01 Aphasia Q21.1 Atrial septal defect E78.5 Hyperlipidemia, unspecified E66.9 Obesity, unspecified Office Visit 01/03/2019 11:01a [facility] Poppy Romero, G45.9 Transient Assoc,pc FORM TAMPING MACHINE OPERATOR cerebral ischemic Hospitalists attack, unspecified N17.9 Acute kidney failure, unspecified 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 N18.3 Chronic kidney disease, stage 3 (moderate) Office Visit 01/01/2019 7:00a [facility] Rizwan Flores, R47.01 Aphasia R41.82 Altered mental status, unspecified Office Visit 01/01/2019 [facility] Jessica Valdez, G45.9 Transient 11:01a Assoc,pc FORM TAMPING MACHINE OPERATOR cerebral ischemic Hospitalists attack, unspecified D69.6 [...] K72.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, unspecified without coma Janelle Senner, DO 05/14/2019 K75.81 Nonalcoholic steatohepatitis ([place]) Janelle Senner, DO 05/14/2019 I50.30 Unspecified diastolic (congestive) heart Janelle Senner, DO failure 05/14/2019 I13.0 Hypertensive heart and [...] pain syndrome Cindy Husain MD 04/13/2019 Z79.4 jail (current) use of insulin Cindy Husain MD 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.4 jail (current) use of insulin Katey Lopez MD [...] failure, unspecified without coma Rosaline Stocking , RX SPECIALIST 04/06/2019 E72.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, Rosaline Stocking, RX SPECIALIST unspecified 04/06/2019 K75.81 Nonalcoholic steatohepatitis ([place]) Rosaline Stocking, RX SPECIALIST 04/06/2019 I10 Essential (primary) hypertension Rosaline Stocking, RX SPECIALIST 04/05/2019 N17.9 Acute kidney failure, unspecified Meche An MD 04/05/2019 K72.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, unspecified without coma Rosaline Stocking , RX SPECIALIST 04/05/2019 N18.4 Chronic kidney disease, stage 4 (severe) Meche An MD 04/05/2019 D63.8 Anemia in other chronic diseases Rosaline Stocking, RX SPECIALIST classified elsewhere 04/05/2019 E72.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, Rosaline Stocking, RX SPECIALIST unspecified 04/05/2019 E87.70 Fluid overload, unspecified Rosaline Stocking, RX SPECIALIST 04/04/2019 D64.9 Anemia, unspecified CAMILO Cabezas 04/04/2019 [...] D63.1 Anemia in chronic kidney disease Araceli Gage, FORM TAMPING MACHINE OPERATOR 04/02/2019 N17.9 Acute kidney failure, unspecified Araceli Shortle, FORM TAMPING MACHINE OPERATOR 04/02/2019 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 chronic kidney disease with Araceli Shortle, FORM TAMPING MACHINE OPERATOR stage 1 through stage 4 chronic kidney disease, or unspecified chronic kidney disease 04/02/2019 N18.9 Chronic kidney disease, unspecified Araceli Shortle, FORM TAMPING MACHINE OPERATOR 03/27/2019 N18.4 Chronic kidney disease, stage 4 [...] Devi, DO 02/18/2019 D64.9 Anemia, unspecified Janelle Marito, DO 02/18/2019 N17.9 Acute kidney failure, unspecified Janelle Marito, DO 02/18/2019 D69.6 Thrombocytopenia, unspecified Janelle Senner, [...] 02/17/2019 R65.20 Severe sepsis without septic shock Jaenlle Senner, DO 02/17/2019 N17.9 Acute kidney failure, unspecified Janelle Senner, DO 02/17/2019 D64.9 Anemia, unspecified Janelle Senner, DO 02/17/2019 D69.6 Thrombocytopenia, unspecified Janelle Senner, DO 02/17/2019 R53.1 Weakness Janelle Senner, DO 02/17/2019 G89.4 Chronic pain syndrome Janelle Senner, DO 02/16/2019 R50.9 Fever, unspecified Emily [place], FORM TAMPING MACHINE OPERATOR 02/16/2019 R53.1 Weakness Emily [place], FORM TAMPING MACHINE OPERATOR 02/16/2019 N17.9 Acute kidney failure, unspecified Emily [place], FORM TAMPING MACHINE OPERATOR 02/16/2019 D64.9 Anemia, unspecified Emily [place], FORM TAMPING MACHINE OPERATOR 01/03/2019 R47.01 Aphasia Rizwan Flores MD 01/03/2019 Q21.1 Atrial septal defect Rizwan Flores MD 01/03/2019 G45.9 Transient cerebral ischemic attack, Poppy Heather, FORM TAMPING MACHINE OPERATOR unspecified 01/03/2019 E78.5 Hyperlipidemia, unspecified Rizwan Flores MD 01/03/2019 E66.9 Obesity, unspecified Rizwan Flores MD 01/03/2019 N17.9 Acute kidney failure, unspecified Poppy Heather, FORM TAMPING MACHINE OPERATOR 01/03/2019 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 chronic kidney disease with Poppy Heather, FORM TAMPING MACHINE OPERATOR stage 1 through stage 4 chronic kidney disease, or unspecified chronic kidney disease 01/03/2019 N18.3 Chronic kidney disease, stage 3 Poppy Heather, FORM TAMPING MACHINE OPERATOR (moderate) 01/02/2019 I63.9 Cerebral infarction, unspecified Femi Aguirre M.D. 01/02/2019 G45.9 Transient cerebral ischemic attack, Poppy Heather, FORM TAMPING MACHINE OPERATOR unspecified 01/02/2019 N18.3 Chronic kidney disease, stage 3 Poppy Heather, FORM TAMPING MACHINE OPERATOR (moderate) 01/02/2019 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 chronic kidney disease with Poppy Heather, FORM TAMPING MACHINE OPERATOR stage 1 through stage 4 chronic [...]
--- OUTSIDE RECORDS SUMMARY | 2019-06-09 08:43 | XMS REPORT ---
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 - Cici mellitus mellitus [id number] with with diabetic diabetic chronic chronic kidney kidney disease disease Hypertensiv Hypertensiv Diagnosis Active Mónica e chronic e chronic 04-18 Cici kidney kidney [id number] disease disease with stage with stage 1 through 1 through stage 4 stage 4 chronic chronic kidney kidney disease, or disease, or unspecified unspecified chronic chronic kidney kidney disease disease Chronic Chronic Diagnosis Active Mónica kidney kidney - Cici disease, disease, [id number] stage 4 stage 4 (severe) (severe) Anemia in Anemia in Diagnosis Active Mónica chronic chronic - Cici kidney kidney [id number] disease disease Unspecified Unspecified Diagnosis Active Mónica cirrhosis cirrhosis - Cici of liver of liver [id number] 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 [id number] Primary Primary Diagnosis Active Mónica pulmonary pulmonary Cici hypertensio hypertensio [id number] n n Cardiomegal Cardiomegal Diagnosis Active Mónica y y Cici [id number] Nonalcoholi Nonalcoholi Diagnosis Active Mónica c c Cici steatohepat steatohepat [id number] itis (GODFREY) itis (GODFREY) Acute and Acute and Diagnosis Active Mónica subacute subacute Cici hepatic hepatic [id number] failure failure without without coma coma Gastro-esop Gastro-esop Diagnosis Active Mónica hageal hageal Cici reflux reflux [id number] disease disease without without esophagitis esophagitis Gout, Gout, Diagnosis Active Mónica unspecified unspecified Cici [id number] Age-related Age-related Diagnosis Active Mónica physical physical Cici debility debility 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) (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) Cici use of use of [id number] insulin insulin Body mass Body mass Diagnosis Active Mónica index (BMI) index (BMI) Cici 50.0-59.9, 50.0-59.9, [id number] adult adult Personal Personal Diagnosis Active Mónica 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 Other long Other long Diagnosis Active Mónica term term Cici (current) (current) [id number] drug drug therapy therapy Pain frequent Pain Mgmt Active 2020-0 Dione pain 05-07 [place] 08:50: [id number] 00 Cardio edema Cardiovasc Active 2020-0 Dione ular 05-07 [place] 08:50: [id number] 00 Respiratory dyspnea Respirator Active 2020-0 Dione present y 05-07 [place] 08:50: [id number] 00 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 05-07 [place] dependence 08:50: [id number] 00 Endo/Satya diabetic Endo/Satya Active 2020-0 Dione foot care 05-07 [place] 08:50: [id number] 00 Nutrition nutritional Nutrition Active 2020-0 [place]inoe restriction 05-07 [place] s 08:50: [id number] 00 Elimination diarrhea Eliminatio Active 2020-0 Dione n 05-07 [place] 08:50: [id number] 00 Activity ADL Activity Active 2020-0 Dione assistance 05-07 [place] required 08:50: [id number] 00 Activity self-care Activity Active 2020-0 Dione deficit 05-07 [place] 08:50: [id number] 00 Safety structural Safety Active 2020-0 Dione barriers 05-07 [place] present 08:50: [id number] 00 Safety fall risk Safety Active 2020-0 Dione factor 05-07 [place] present 08:50: [id number] 00 Safety risk for Safety Active 2020-0 Dione hospitaliza 05-07 [place] tion 08:50: [id number] 00 Safety can be left Safety Active 2019-0 Dione alone for 05-07 [place] only short 08:50: [id number] periods 00 Medication oral med Meds Active 2019-0 Dione assistance 05-07 [place] required 08:50: [id number] 00 Medication injectable Meds Active 2019-0 Dione med 05-07 [place] assistance 08:50: [id number] required 00 Medication knowledge/s Meds Active 2019-0 Dione kill 05-07 [place] deficit: pt 08:50: [id number] 00 Musculoskel transfer Musculoske Active 2019-0 Dione etal assistance letal 05-07 [place] required 08:50: [id number] 00 Bed transfer PT/OT: Bed Active 2020-0 Peter Mobility/Tr deficit: Mobility/T 3-12 autumn Martinez sit/stand ransfer 13:00: PT 00 [id number] Bed transfer PT/OT: Bed Active 2020-0 Peter Mobility/Tr deficit: Mobility/T 3-12 autumn Martinez standing ransfer 13:00: PT pivot 00 [id number] Bed transfer PT/OT: Bed Active 2020-0 Peter Mobility/Tr deficit: Mobility/T 3-12 autumn Martinez toilet/comm ransfer 13:00: PT ode 00 [id number] Bed transfer PT/OT: Bed Active 2020-0 Peter Mobility/Tr deficit: Mobility/T 3-12 autumn Martinez shower/tub ransfer 13:00: PT 00 [id number] Bed knowledge/s PT/OT: Bed Active 2020-0 Peter Mobility/Tr kill Mobility/T 3-12 autumn Martinez deficit: pt ransfer 13:00: PT 00 [id number] Gait/Locomo knowledge/s PT/OT: Active 2020-0 Peter tion kill Gait/Locom 3-12 Juan, problems deficit: pt otion 13:00: PT 00 [id number] Gait/Locomo gait PT/OT: Active 2020-0 Peter tion deficit Gait/Locom 3-12 Juan, problems otion 13:00: PT 00 [id number] Allergies, Adverse Reactions, Alerts Allergy Allergy Status [...] mg iron) tablet tablet lactulose lactulose 0 Yes Midura Unknown Unknown 10 gram/15 10 gram/15 3-12 MDRafat mL (15 mL) mL (15 mL) oral oral solution solution Lantus Lantus Yes Midura Unknown Unknown Solostar Solostar 3-12 ,Rafat U-100 U-100 Insulin 100 Insulin 100 unit/mL (3 unit/mL (3 mL) mL) subcutaneou subcutaneou s pen s pen Metamucil Metamucil Yes Midura Unknown Unknown Fiber Thin Fiber Thin 3-12 Rafat TORRES 2 gram oral 2 gram oral wafer wafer nystatin nystatin 0 Yes Midura Unknown Unknown (bulk) 50 (bulk) 50 3-12 Rafat TORRES million million unit powder unit powder [place] 3-6-9 [place] 3-6-9 Yes Midura Unknown Unknown 1,200 mg [...]
--- OUTSIDE RECORDS SUMMARY | 2019-06-09 08:43 | XMS REPORT ---
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 diabetes - Cici mellitus mellitus [id number] with with diabetic diabetic chronic chronic kidney kidney disease disease Hypertensiv Hypertensiv Diagnosis Active Mónica e chronic e chronic 04-18 Cici kidney kidney [id number] disease disease with stage with stage 1 through 1 through stage 4 stage 4 chronic chronic kidney kidney disease, or disease, or unspecified unspecified chronic chronic kidney kidney disease disease Chronic Chronic Diagnosis Active Mónica kidney kidney - Cici disease, disease, [id number] stage 4 stage 4 (severe) (severe) Anemia in Anemia in Diagnosis Active Mónica chronic chronic - Cici kidney kidney [id number] disease disease Unspecified Unspecified Diagnosis Active Mónica cirrhosis cirrhosis - Cici of liver of liver [id number] 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 [id number] penia penia Chronic Chronic Diagnosis Active Mónica pain pain Cici syndrome syndrome [id number] Primary Primary Diagnosis Active Mónica pulmonary pulmonary Cici hypertensio hypertensio [id number] n n Cardiomegal Cardiomegal Diagnosis Active Mónica y y Cici [id number] Nonalcoholi Nonalcoholi Diagnosis Active Mónica c c Cici steatohepat steatohepat [id number] itis (GODFREY) itis (GODFREY) Acute and Acute and Diagnosis Active Mónica subacute subacute Cici hepatic hepatic [id number] failure failure without without coma coma Gastro-esop Gastro-esop Diagnosis Active Mónica hageal hageal Cici reflux reflux [id number] disease disease without without esophagitis esophagitis Gout, Gout, Diagnosis Active Mónica unspecified unspecified Cici [id number] Age-related Age-related Diagnosis Active Mónica physical physical Cici debility 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) (current) Cici use of use of [id number] insulin insulin Body mass Body mass Diagnosis Active Mónica index (BMI) index (BMI) Cici 50.0-59.9, 50.0-59.9, [id number] adult adult Personal Personal Diagnosis Active Mónica history of history of Cici peptic peptic [id number] ulcer ulcer disease disease Other long Other long Diagnosis Active Mónica term term Cici (current) (current) [id number] drug drug therapy therapy Pain frequent Pain Mgmt Active 2020-0 Dione pain 05-07 [place] 08:50: [id number] 00 Cardio edema Cardiovasc Active 2020-0 Dione ular 05-07 [place] 08:50: [id number] 00 Respiratory dyspnea Respirator Active 2020-0 Dione present y 05-07 [place] 08:50: [id number] 00 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 05-07 [place] dependence 08:50: [id number] 00 Endo/Satya diabetic Endo/Satya Active 2020-0 Dione foot care 05-07 [place] 08:50: [id number] 00 Nutrition nutritional Nutrition Active 2020-0 Dione restriction 05-07 [place] s 08:50: [id number] 00 Elimination diarrhea Eliminatio Active 2020-0 Dione n 05-07 [place] 08:50: [id number] 00 Activity ADL Activity Active 2020-0 Dione assistance 05-07 [place] required 08:50: [id number] 00 Activity self-care Activity Active 2020-0 Dione deficit 05-07 [place] 08:50: [id number] 00 Safety structural Safety Active 2020-0 Dione barriers 05-07 [place] present 08:50: [id number] 00 Safety fall risk Safety Active 2020-0 Dione factor 05-07 [place] present 08:50: [id number] 00 Safety risk for Safety Active 2020-0 Dione hospitaliza 05-07 [place] tion 08:50: [id number] 00 Safety can be left Safety Active 2019-0 Dione alone for 05-07 [place] only short 08:50: [id number] periods 00 Medication oral med Meds Active 2019-0 Dione assistance 05-07 [place] required 08:50: [id number] 00 Medication injectable Meds Active 2019-0 Dione med 05-07 [place] assistance 08:50: [id number] required 00 Medication knowledge/s Meds Active 2019-0 Dione kill 05-07 [place] deficit: pt 08:50: [id number] 00 Musculoskel transfer Musculoske Active 2019-0 Dione etal assistance letal 05-07 [place] required 08:50: [id number] 00 Bed transfer PT/OT: Bed Active 2020-0 Peter Mobility/Tr deficit: Mobility/T 3-12 autumn Martinez sit/stand ransfer 13:00: PT 00 799159-7 Bed transfer PT/OT: Bed Active 2020-0 Peter Mobility/Tr deficit: Mobility/T 3-12 autumn Martinez standing ransfer 13:00: PT pivot 00 [id number] Bed transfer PT/OT: Bed Active 2020-0 Peter Mobility/Tr deficit: Mobility/T 3-12 autumn Martinez toilet/comm ransfer 13:00: PT ode 00 842576-2 Bed transfer PT/OT: Bed Active 2020-0 Peter Mobility/Tr deficit: Mobility/T 3-12 autumn Martinez shower/tub ransfer 13:00: PT 00 755071-2 Bed knowledge/s PT/OT: Bed Active 2020-0 Peter Mobility/Tr kill Mobility/T 3-12 autumn Martinez deficit: pt ransfer 13:00: PT 00 [id number] Gait/Locomo knowledge/s PT/OT: Active 2020-0 Peter tion kill Gait/Locom 3-12 Juan, problems deficit: pt otion 13:00: PT 00 [id number] Gait/Locomo gait PT/OT: Active 2020-0 Peter tion deficit Gait/Locom 3-12 Juan, problems otion 13:00: PT 00 891695-0 Allergies, Adverse Reactions, Alerts Allergy Allergy Status [...] TORRES million million unit powder unit powder [place] 3-6-9 [place] 3-6-9 Yes Midura Unknown Unknown 1,200 mg [...]
--- OUTSIDE RECORDS SUMMARY | 2019-06-09 08:43 | XMS REPORT ---
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 05-07 [place] dependence 08:50: [id number] 00 Endo/Satya diabetic Endo/Satya Active 2020-0 Dione foot care 05-07 [place] 08:50: [id number] 00 Nutrition nutritional Nutrition Active 2020-0 Dione restriction 05-07 [place] s 08:50: [id number] 00 Elimination diarrhea Eliminatio Active 2020-0 Dione n 05-07 [place] 08:50: [id number] 00 Activity ADL Activity Active 2020-0 Dione assistance 05-07 [place] required 08:50: [id number] 00 Activity self-care Activity Active 2020-0 Dione deficit 05-07 [place] 08:50: [id number] 00 Safety structural Safety Active 2020-0 Dione barriers 05-07 [place] present 08:50: [id number] 00 Safety fall risk Safety Active 2020-0 Dione factor 05-07 [place] present 08:50: [id number] 00 Safety risk for Safety Active 2020-0 Dione hospitaliza 05-07 [place] tion 08:50: [id number] 00 Safety can be left Safety Active 2020-0 Dione alone for 05-07 [place] only short 08:50: [id number] periods 00 Medication oral med Meds Active 2020-0 Dione assistance 05-07 [place] required 08:50: [id number] 00 Medication injectable Meds Active 2020-0 Dione med 05-07 [place] assistance 08:50: [id number] required 00 Medication knowledge/s Meds Active 2019-0 Dione kill 3-12 [place] deficit: pt 08:50: [id number] 00 Musculoskel transfer Musculoske Active 2019-0 Dione etal assistance letal 3-12 [place] required 08:50: [id number] 00 Bed transfer PT/OT: Bed Active 2020-0 Peter Mobility/Tr deficit: Mobility/T 3-12 autumn Martinez sit/stand ransfer 13:00: PT 00 [id number] Bed transfer PT/OT: Bed Active 2020-0 Peter Mobility/Tr deficit: Mobility/T 3-12 autumn Martinez standing ransfer 13:00: PT pivot 00 [id number] Bed transfer PT/OT: Bed Active 2019-0 Peter Mobility/Tr deficit: Mobility/T 3-12 autumn Martinez toilet/comm ransfer 13:00: PT ode 00 [id number] Bed transfer PT/OT: Bed Active 2019-0 Peter Mobility/Tr deficit: Mobility/T 3-12 autumn Martinez shower/tub ransfer 13:00: PT 00 [id number] Bed knowledge/s PT/OT: Bed Active 2020-0 Peter Mobility/Tr kill Mobility/T 3-12 autumn Martinez deficit: pt ransfer 13:00: PT 00 [id number] Gait/Locomo knowledge/s PT/OT: Active 2020-0 Peter tion kill Gait/Locom 3-12 Juan, problems deficit: pt otion 13:00: PT 00 [id number] Gait/Locomo gait PT/OT: Active 2019-0 Peter tion deficit Gait/Locom 3-12 Juan, problems otion 13:00: PT 00 989213-1 Allergies, Adverse Reactions, Alerts Allergy Allergy Status [...] 2019-0 Yes Midura Unknown Unknown Solostar Solostar 3-12 MDRafat U-100 U-100 Insulin 100 Insulin 100 unit/mL (3 unit/mL (3 mL) mL) subcutaneou subcutaneou s pen s pen Metamucil Metamucil 2019-0 Yes Midura Unknown Unknown Fiber Thin Fiber Thin 3-12 MDRafat 2 gram oral 2 gram oral wafer wafer nystatin nystatin Yes Midura Unknown Unknown (bulk) 50 (bulk) 50 3-12 MD,Rafat million million unit powder unit powder [place] 3-6-9 [place] 3-6-9 2019-0 Yes Midura Unknown Unknown 1,200 mg 1,200 mg 3-12 MD,Rafat capsule capsule pantoprazol pantoprazol 0 Yes Midura Unknown Unknown e 40 mg e 40 mg 3-12 MD,Rafat tablet,christian tablet,christian yed release yed release spironolact spironolact 0 Yes Midura Unknown Unknown one 50 mg one 50 mg 3-12 MD,Rafat tablet tablet torsemide torsemide 0 Yes Midura Unknown Unknown 20 mg 20 [...]
--- OUTSIDE RECORDS SUMMARY | 2019-06-09 08:43 | XMS REPORT ---
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 - Cici mellitus mellitus [id number] with with diabetic diabetic chronic chronic kidney kidney disease disease Hypertensiv Hypertensiv Diagnosis Active Mónica e chronic e chronic 04-18 Cici kidney kidney [id number] disease disease with stage with stage 1 through 1 through stage 4 stage 4 chronic chronic kidney kidney disease, or disease, or unspecified unspecified chronic chronic kidney kidney disease disease Chronic Chronic Diagnosis Active Mónica kidney kidney - Cici disease, disease, [id number] stage 4 stage 4 (severe) (severe) Anemia in Anemia in Diagnosis Active Mónica chronic chronic - Cici kidney kidney [id number] disease disease Unspecified Unspecified Diagnosis Active Mónica cirrhosis cirrhosis - Cici of liver of liver [id number] 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 [id number] penia penia Chronic Chronic Diagnosis Active Mónica pain pain Cici syndrome syndrome [id number] Primary Primary Diagnosis Active Mónica pulmonary pulmonary Cici hypertensio hypertensio [id number] n n Cardiomegal Cardiomegal Diagnosis Active Mónica y y Cici [id number] Nonalcoholi Nonalcoholi Diagnosis Active Mónica c c Cici steatohepat steatohepat [id number] itis (GODFREY) itis (GODFREY) Acute and Acute and Diagnosis Active Mónica subacute subacute Cici hepatic hepatic [id number] failure failure without without coma coma Gastro-esop Gastro-esop Diagnosis Active Mónica hageal hageal Cici reflux reflux [id number] disease disease without without esophagitis esophagitis Gout, Gout, Diagnosis Active Mónica unspecified unspecified Cici [id number] Age-related Age-related Diagnosis Active Mónica physical physical Cici debility 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 (current) (current) Cici use of use of [id number] insulin insulin Body mass Body mass Diagnosis Active Mónica index (BMI) index (BMI) Cici 50.0-59.9, 50.0-59.9, [id number] adult adult Personal Personal Diagnosis Active Mónica history of history of Cici peptic peptic [id number] ulcer ulcer disease disease Other long Other long Diagnosis Active Mónica term term Cici (current) (current) [id number] drug drug therapy therapy Pain frequent Pain Mgmt Active 2020-0 Dione pain 05-07 [place] 08:50: [id number] 00 Cardio edema Cardiovasc Active 2020-0 Dione ular 05-07 [place] 08:50: [id number] 00 Respiratory dyspnea Respirator Active 2020-0 Dione present y 05-07 [place] 08:50: [id number] 00 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 05-07 [place] dependence 08:50: [id number] 00 Endo/Satya diabetic Endo/Satya Active 2020-0 Dione foot care 05-07 [place] 08:50: [id number] 00 Nutrition nutritional Nutrition Active 2020-0 Dione restriction 05-07 [place] s 08:50: [id number] 00 Elimination diarrhea Eliminatio Active 2020-0 Dione n 05-07 [place] 08:50: [id number] 00 Activity ADL Activity Active 2020-0 Dione assistance 05-07 [place] required 08:50: [id number] 00 Activity self-care Activity Active 2020-0 Dione deficit 05-07 [place] 08:50: [id number] 00 Safety structural Safety Active 2020-0 Dione barriers 05-07 [place] present 08:50: [id number] 00 Safety fall risk Safety Active 2020-0 Dione factor 05-07 [place] present 08:50: [id number] 00 Safety risk for Safety Active 2020-0 Dione hospitaliza 05-07 [place] tion 08:50: [id number] 00 Safety can be left Safety Active 2019-0 Dione alone for 05-07 [place] only short 08:50: [id number] periods 00 Medication oral med Meds Active 2019-0 Dione assistance 05-07 [place] required 08:50: [id number] 00 Medication injectable Meds Active 2019-0 Dione med 05-07 [place] assistance 08:50: [id number] required 00 Medication knowledge/s Meds Active 2019-0 Dione kill 05-07 [place] deficit: pt 08:50: [id number] 00 Musculoskel transfer Musculoske Active 2019-0 Dione etal assistance letal 05-07 [place] required 08:50: [id number] 00 Bed transfer PT/OT: Bed Active 2020-0 Peter Mobility/Tr deficit: Mobility/T 3-12 autumn Martinez sit/stand ransfer 13:00: PT 00 [id number] Bed transfer PT/OT: Bed Active 2020-0 Peter Mobility/Tr deficit: Mobility/T 3-12 autumn Martinez standing ransfer 13:00: PT pivot 00 [id number] Bed transfer PT/OT: Bed Active 2020-0 Peter Mobility/Tr deficit: Mobility/T 3-12 autumn Martinez toilet/comm ransfer 13:00: PT ode 00 778133-2 Bed transfer PT/OT: Bed Active 2020-0 Peter Mobility/Tr deficit: Mobility/T 3-12 autumn Martinez shower/tub ransfer 13:00: PT 00 [id number] Bed knowledge/s PT/OT: Bed Active 2020-0 Peter Mobility/Tr kill Mobility/T 3-12 autumn Martinez deficit: pt ransfer 13:00: PT 00 647299-7 Gait/Locomo knowledge/s PT/OT: Active 2020-0 Peter tion kill Gait/Locom 3-12 Juan, problems deficit: pt otion 13:00: PT 00 109258-4 Gait/Locomo gait PT/OT: Active 2020-0 Peter tion deficit Gait/Locom 3-12 Juan, problems otion 13:00: PT 00 444520-3 Allergies, Adverse Reactions, Alerts Allergy Allergy Status [...] TORRES million million unit powder unit powder [place] 3-6-9 [place] 3-6-9 Yes Midura Unknown Unknown 1,200 mg [...]
--- OUTSIDE RECORDS SUMMARY | 2019-06-09 08:43 | XMS REPORT | Continuity of Care Document ---
:1945 External Reference #:[id number] Author Name Rafat Senior M.D. Address [address] [place] [address] Care Team Providers Name Role Phone Rafat Senior Family Medicine Care Team Information Database Management Specialist [phone] Problems Active Problems Provider Date Type 2 diabetes mellitus Rafat Senior M.D. Onset: 07/12/2005 Benign essential hypertension Rafat Senior M.D. Onset: 07/12/2005 Hyperlipidemia Rafat Senior M.D. Onset: 07/12/2005 Obesity Rafat Senior M.D. Onset: 07/12/2005 Arthropathy Rafat Senior M.D. Onset: 06/15/2009 Low back pain Rafat Senior M.D. Onset: 04/12/2012 Edema Rafat Senior M.D. Onset: 05/08/2014 Delirium Rafat Senior M.D. Onset: 07/03/2014 Heart murmur Rafat Senior M.D. Onset: 07/03/2014 Cardiovascular symptoms Rafat Senior M.D. Onset: 07/03/2014 Depressive disorder Rafat Senior M.D. Onset: 07/03/2014 Malaise and fatigue Rafat Senior M.D. Onset: 08/18/2014 Deficiency anemias Rafat Senior M.D. Onset: 08/18/2014 Arthralgia of the lower leg Rafat Senior M.D. Onset: 08/18/2014 Nausea Rafat Senior M.D. Onset: 08/18/2014 Hyperkalemia Rafat Senior M.D. Onset: 08/24/2014 Disorder of brain Rafat Senior M.D. Onset: 09/29/2014 Cirrhosis of liver not due to alcohol Rafat Senior M.D. Onset: 09/29/2014 Essential hypertension Rafat Senior M.D. Onset: 12/28/2014 Cirrhosis - non-alcoholic Rafat Senior M.D. Onset: 04/05/2015 Anemia Rafat Senior M.D. Onset: 12/28/2015 Gastroesophageal reflux disease Rafat Senior M.D. Onset: 12/28/2015 Conjunctivitis Rafat Senior M.D. Onset: 12/28/2015 Allergic rhinitis Rafat Senior M.D. Onset: 04/28/2016 Localized, primary osteoarthritis Rafat Senior M.D. Onset: 03/23/2017 Renal function tests abnormal Rafat Senior M.D. Onset: 03/12/2018 Polyarthropathy Rafat Senior M.D. Onset: 05/21/2018 Idiopathic gout, unspecified site Rafat Senior M.D. Onset: 06/14/2018 H/O: TIA Rafat Senior M.D. Onset: 01/14/2019 Sepsis due to Streptococcus Rafat Senior M.D. Onset: 03/03/2019 Static encephalopathy Rafat Senior M.D. Onset: 05/23/2019 Social History Type Date Description Comments Sex Unknown Tobacco Use Start: Unknown Nonsmoker ETOH Use Denies alcohol use Tobacco Use Start: Unknown Patient has never smoked Allergies, Adverse Reactions, Alerts Description No Known Drug Allergies Medications Active Medications SIG Qnty Indications Ordering Date Provider Nadolol 1 by mouth every 90tabs Rafat Senior, 05/23/2019 20mg Tablets day for blood M.D. pressure Pantoprazole Sodium 1 by mouth twice 180Tablet Rafat Senior, 05/23/2019 daily M.D. 40mg Tablets Spironolactone take 1 tablet by 90tabs Rafat Senior, 05/23/2019 50mg mouth once a day M.D. Tablets for blood pressure and fluid retention Torsemide take 2 daily 180tabs R60.0 Rafat Senior, 05/23/2019 20mg Tablets M.D. Xifaxan 1 by mouth twice 60tabs Rafat Senior, 05/16/2019 550mg Tablets a day M.D. Onetouch Ultrasoft Test Blood 300units Rafat Senior, 05/12/2019 Lancets Sugars Four M.D. Misc Times Daily as Directed Nystatin apply topically 90units Rafat Senior, 02/28/2019 [id number]/GM to affected M.D. Powder area(s) two times daily Allopurinol take 1 tablet by 90tabs M10.00 Rafat Senior, 06/14/2018 300mg mouth every day M.D. Tablets to prevent gout BD U/F Mini Pen Use as Directed 200units Rafat Senior, 04/30/2018 Needle [id number] Up To Four Times M.D. A Day Constulose 30ml by mouth 6000units Rafat Senior, 02/12/2017 10GM/15ML bid-tid mdd 90ml M.D. Solution Ferrous Gluconate 1 by mouth daily 90tabs Rafat Senior, 07/26/2016 M.D. 324(37.5Fe) mg Tablets Oxycodone HCL 1/2-1 4 times a 120tabs R60.0 Rafat Senior, 09/29/2014 5mg day as needed M.D. Tablets pain Onetouch Verio Test Blood Sugar 350units Rafat Senior, 06/03/2014 Strips Four Times A Day M.D. Onetouch Verio test blood sugar 1units E11.9 Rafat Senior, 05/12/2014 w/Device four times a day M.D. Kit last seen 03/03/2019 Nystatin apply to 45mg Mónica 03/19/2012 [id number]/GM affected area Luis Armando, INVESTIGATIVE AGENT Cream twice a day Lantus Solostar inject 8 units 15units Jessica C. daily ELOISA Ricks 100Unit/ML Solution Pen-Inject Aspirin 1 by mouth every Unknown 81mg Tablets DR day CBD 100mg daily Unknown [place]-3 1 by mouth every Unknown 1000mg Capsules day History Medications Cephalexin take one by 21tabs Rafat Senior, 02/21/2019 - 500mg mouth three M.D. 05/23/2019 Tablets times per day x10 days Plavix 1 by mouth every Unknown 01/03/2019 - 75mg Tablets day x30 days 02/02/2019 Immunizations CPT Code Status Date Vaccine Lot # [id number] Given 04/12/2012 Tdap Tetanus, W Pertussis [id number] Vital Signs Date Vital Result Comment 03/03/2019 1:59pm BP Systolic 110 mmHg BP Diastolic 52 mmHg Heart Rate 88 /min Body Temperature 98.6 F Respiratory Rate 12 /min Height 65 inches 5'5" Weight 335.00 lb BMI (Body Mass Index) 55.7 kg/m2 01/14/2019 11:29am BP Systolic 162 mmHg BP Diastolic 80 mmHg Heart Rate 72 /min Body Temperature 98.6 F Respiratory Rate 16 /min Height 65 inches 5'5" Weight 316.00 lb BMI (Body Mass Index) 52.6 kg/m2 Results Test Acquired Date Facility Test Result H/L Range Note Laboratory test 05/13/2019 [facility] Ammonia 261 mcmol/L High 16-53 finding Laboratory test 05/13/2019 [facility] Lactic Acid 1.0 mmol/L Normal 0.5-2.0 1 finding Comp Metabolic 05/13/2019 [facility] Sodium 134 mmol/L Low 135-145 Panel Potassium 3.5 mmol/L Normal 3.5-5.0 Chloride 102 mmol/L Normal 101-111 Co2 Carbon Dioxide 25 mmol/L Normal 22-32 Anion Gap 7 mmol/L Normal 2-11 Glucose 290 mg/dL High 70-100 Blood Urea Nitrogen 43 mg/dL High 6-24 Creatinine 2.05 mg/dL High 0.51-0.95 BUN/Creatinine Ratio 21.0 High 8-20 Calcium 9.5 mg/dL Normal 8.6-10.3 Total Protein 7.3 g/dL Normal 6.4-8.9 Albumin 2.6 g/dL Low 3.2-5.2 Globulin 4.7 g/dL High 2-4 Albumin/Globulin Ratio 0.6 Low 1-3 Total Bilirubin 2.00 mg/dL High 0.2-1.0 Alkaline Phosphatase 234 U/L High 34-104 Alt 57 U/L High 7-52 Ast 97 U/L High 13-39 Egfr Non- 23.7 >60 Egfr 28.7 >60 2 Laboratory test finding 05/13/2019 [facility] Troponin-I (TnI) 0.02 ng/mL < 0.03 3 Alcohol 11 mg/dL High <10 TSH (Thyroid Stim Horm) 2.32 mcIU/mL Normal 0.34-5.60 CBC Auto Diff 05/13/2019 [facility] White Blood Count 6.0 10^3/uL Normal 3.5- 10.8 Red Blood Count 2.84 10^6/uL Low 3.70-4.87 Hemoglobin 9.7 g/dL Low 12.0-16.0 Hematocrit 29 % Low 35-47 Mean Corpuscular Volume 101 fL High 80-97 Mean Corpuscular Hemoglobin 34 pg High 27-31 Mean Corpuscular HGB Conc 34 g/dL Normal 31-36 Red Cell Distribution Width 22 % High 10-15 Platelet Count 116 10^3/uL Low 150-450 Mean Platelet Volume 9.0 fL Normal 7.4-10.4 Abs Neutrophils 3.3 10^3/uL Normal 1.5-7.7 Abs Lymphocytes 1.6 10^3/uL Normal 1.0-4.8 Abs Monocytes 0.7 10^3/uL Normal 0-0.8 Abs Eosinophils 0.3 10^3/uL Normal 0-0.6 Abs Basophils 0.1 10^3/uL Normal 0-0.2 Abs Nucleated RBC 0.0 10^3/uL Granulocyte % 55.0 % Lymphocyte % 26.5 % Monocyte % 11.3 % Eosinophil % 5.6 % Basophil % 1.6 % Nucleated Red Blood Cells % 0.0 Manual Differential 05/13/2019 [facility] Neutrophil % 54.0 % Lymphocytes % 30.0 % Monocytes % 5.0 % Eosinophils % 8.0 % Basophil % 3.0 % Anisocytosis 2+ Laboratory test 05/13/2019 [facility] Pathologist Review (SEE NOTE) 4 finding Basic Metabolic 05/06/2019 [facility](fma) Sodium 141 mEq/L 134-149 Profile Potassium 4.3 mEq/L 3.6-5.5 Chloride 99 mEq/L 94-112 Carbon Dioxide 29 mEq/L 21-32 Glucose 233 mg/dL High 70-105 5 BUN 34 mg/dL High 6-26 6 Creatinine 1.8 mg/dL High 0.6-1.4 7 BUN/Creat Ratio 18.9 CALC 8.0-36.0 Calcium 10.1 mg/dL 8.9-10.6 GFR Non- 29 ml/min/1.73m^ Low >=60 GFR 35 ml/min/1.73m^ Low >=60 Laboratory test 04/02/2019 [facility] Packed Cells SEE RESULTS BELO 8, 9 finding <SEE NOTE> Type & Screen 04/02/2019 [facility] Patient Blood Type A Positive Antibody Screen NEGATIVE Type & Screen 04/02/2019 [facility] Patient Blood Type A Positive Antibody Screen NEGATIVE Laboratory test finding 04/02/2019 [facility] Ferritin 120.7 ng/mL Normal 11- 307 Folic Acid (Folate) 8.04 ng/mL >3.99 Vitamin B12 > 1450 pg/mL High 180-914 10 Iron & Iron Binding Capacity 04/02/2019 [facility] Iron 66 g/dL Normal 50-212 Unsaturated Iron Binding < 219 g/dL Total Iron Binding Capacity 234 g/dL Low 250-450 Transferrin 167 mg/dL Low 203-362 % Iron Saturation 28 % Normal 15-55 Laboratory test finding 04/02/2019 [facility] Pathologist Review (SEE NOTE) 11 Manual Differential 04/02/2019 [facility] Neutrophil % 56.0 % Lymphocytes % 24.0 % Monocytes % 9.0 % Eosinophils % 10.0 % Basophil % 1.0 % Hypochromasia 1+ Polychromasia 1+ Laboratory test finding 04/02/2019 [facility] Magnesium 2.4 mg/dL Normal 1.9- 2.7 Basic Metabolic Panel 04/02/2019 [facility] Sodium 137 mmol/L Normal 135-145 Potassium 4.3 mmol/L Normal 3.5-5.0 Co2 Carbon Dioxide 17 mmol/L Low 22-32 Glucose 80 mg/dL Normal 70-100 Blood Urea Nitrogen 57 mg/dL High 6-24 Creatinine 4.87 mg/dL High 0.51-0.95 BUN/Creatinine Ratio 11.7 Normal 8-20 Calcium 8.5 mg/dL Low 8.6-10.3 Egfr Non- 8.7 >60 Egfr 10.6 >60 12 Chloride 113 mmol/L High 101-111 Anion Gap 7 mmol/L Normal 2-11 CBC Auto Diff 04/02/2019 [facility] White Blood Count 7.4 10^3/uL Normal 3.5- 10.8 Red Blood Count 2.05 10^6/uL Low 3.70-4.87 Hemoglobin 6.8 g/dL Low 12.0-16.0 Hematocrit 21 % Low 35-47 Mean Corpuscular Volume 103 fL High 80-97 Mean Corpuscular Hemoglobin 33 pg High 27-31 Mean Corpuscular HGB Conc 32 g/dL Normal 31-36 Red Cell Distribution Width 23 % High 10-15 13 Platelet Count 105 10^3/uL Low 150-450 Mean Platelet Volume 9.9 fL Normal 7.4-10.4 Abs Neutrophils 3.9 10^3/uL Normal 1.5-7.7 Abs Lymphocytes 1.8 10^3/uL Normal 1.0-4.8 Abs Monocytes 0.9 10^3/uL High 0-0.8 Abs Eosinophils 0.7 10^3/uL High 0-0.6 Abs Basophils 0.1 10^3/uL Normal 0-0.2 Abs Nucleated RBC 0.0 10^3/uL Granulocyte % 52.3 % Lymphocyte % 24.5 % Monocyte % 12.4 % Eosinophil % 9.6 % Basophil % 1.2 % Nucleated Red Blood Cells % 0.3 Laboratory test 04/02/2019 [facility] Ammonia 94 mcmol/L High 16-53 finding Inr/Protime 04/02/2019 [facility] Inr 1.26 High 0.82-1.09 14 Stool Occult Blood, 04/02/2019 [facility] Stool Occult Blood, SEE RESULT 15 Screen Screen BELOW Laboratory test 02/16/2019 [facility] Pathologist Review (SEE NOTE) 16 finding Manual Differential 02/16/2019 [facility] Immature 24.0 % High 0-9 Granulocytes Neutrophil % 71.0 % Band % 24.0 % High 0-8 Lymphocytes % 3.0 % Monocytes % 2.0 % Toxic Granulation 1+ Anisocytosis 2+ Laboratory test finding 02/16/2019 [facility] Magnesium 2.0 mg/dL Normal 1.9- 2.7 TSH (Thyroid Stim Horm) 2.32 mcIU/mL Normal 0.34-5.60 CBC Auto Diff 02/16/2019 [facility] White Blood Count 17.1 10^3/uL High 3.5- 10.8 Red Blood Count 2.41 10^6/uL Low 3.70-4.87 Hemoglobin 7.5 g/dL Low 12.0-16.0 Hematocrit 23 % Low 35-47 Mean Corpuscular Volume 97 fL Normal 80-97 Mean Corpuscular Hemoglobin 31 pg Normal 27-31 Mean Corpuscular HGB Conc 32 g/dL Normal 31-36 Red Cell Distribution Width 17 % High 10-15 Platelet Count 94 10^3/uL Low 150-450 Mean Platelet Volume 8.2 fL Normal 7.4-10.4 Abs Neutrophils 15.6 10^3/uL High 1.5-7.7 Abs Lymphocytes 0.8 10^3/uL Low 1.0-4.8 Abs Monocytes 0.7 10^3/uL Normal 0-0.8 Abs Eosinophils 0.0 10^3/uL Normal 0-0.6 Abs Basophils 0.0 10^3/uL Normal 0-0.2 Abs Nucleated RBC 0.0 10^3/uL Granulocyte % 91.1 % Lymphocyte % 4.8 % Monocyte % 4.0 % Eosinophil % 0.0 % Basophil % 0.1 % Nucleated Red Blood Cells % 0.1 Comp Metabolic Panel 02/16/2019 [facility] Sodium 135 mmol/L Normal 135-145 Potassium 3.6 mmol/L Normal 3.5-5.0 Chloride 106 mmol/L Normal 101-111 Co2 Carbon Dioxide 17 mmol/L Low 22-32 Anion Gap 12 mmol/L High 2-11 Glucose 163 mg/dL High 70-100 Blood Urea Nitrogen 29 mg/dL High 6-24 Creatinine 2.76 mg/dL High 0.51-0.95 BUN/Creatinine Ratio 10.5 Normal 8-20 Calcium 8.3 mg/dL Low 8.6-10.3 Total Protein 5.7 g/dL Low 6.4-8.9 Albumin 2.2 g/dL Low 3.2-5.2 Globulin 3.5 g/dL Normal 2-4 Albumin/Globulin Ratio 0.6 Low 1-3 Total Bilirubin 1.50 mg/dL High 0.2-1.0 Alkaline Phosphatase 89 U/L Normal 34-104 Alt 15 U/L Normal 7-52 Ast 58 U/L High 13-39 Egfr Non- 16.8 >60 Egfr 20.4 >60 17 Laboratory test 02/16/2019 [facility] Ammonia 52 mcmol/L Normal 16-53 finding Urine Culture And 02/16/2019 [facility] Urine Culture SEE RESULT 18 Sensitivities BELOW Laboratory test 02/16/2019 [facility] Lactic Acid 4.6 mmol/L Critical high 0.5- 2.0 19 finding Blood Culture SEE RESULT BELOW 20 Urinalysis Profile 02/16/2019 [facility] Urine Color Yellow Urine Appearance Cloudy Urine Specific [place] 1.012 Normal 1.010-1.030 Urine pH 5.0 Normal 5-9 Urine Urobilinogen Negative Negative Urine Ketones Negative Negative Urine Protein 2+(100 mg/dL) Abnormal Negative Urine Leukocytes Negative Negative Urine Blood 3+ Abnormal Negative Urine Nitrite Negative Negative Urine Bilirubin Negative Negative Urine Glucose Negative Negative Urine White Blood Cell Trace(0-5/hpf) Absent Urine Red Blood Cell 2+(6-10/hpf) Abnormal Absent Urine Bacteria Absent Absent Urine Squamous Epithelial Cell Present Abnormal Absent Urine Hyaline Casts Present Abnormal Absent Laboratory test 02/16/2019 [facility] B-Type Natriuretic > 1300 pg/mL High <= 100 finding Peptide BNP Influenza A & B 02/16/2019 [facility] Flu AB Disclaimer (SEE NOTE) 21, 22 Request Influenza A Molecular NEGATIVE Negative Influenza B Molecular NEGATIVE Negative 23 Laboratory test 02/16/2019 [facility] Lactic 5.3 mmol/L Critical 0.5-2.0 24 finding Acid high Comprehensive 01/14/2019 [facility]) Sodium 140 mEq/L 134-149 Metabolic Prof Potassium 4.2 mEq/L 3.6-5.5 Chloride 110 mEq/L 94-112 Carbon Dioxide 21 mEq/L 21-32 Glucose 143 mg/dL High 70-105 BUN 30 mg/dL High 6-26 Creatinine 2.6 mg/dL High 0.6-1.4 BUN/Creat Ratio 11.5 CALC 8.0-36.0 Calcium 7.9 mg/dL Low 8.6-10.2 Total Protein 5.8 g/dL Low 6.4-8.3 Albumin 2.4 g/dL Low 3.8-5.5 Globulin 3.4 g/dL 2.0-4.8 A/G Ratio 0.7 CALC 0.6-2.3 Alk. Phosphatase 125 U/L High 30-110 Alt (SGPT) 18 U/L 7-35 Ast (Sgot) 40 U/L High 5-34 Total Bilirubin 1.0 mg/dL 0.2-1.3 GFR Non- 19 ml/min/1.73m^ Low >=60 GFR 23 ml/min/1.73m^ Low >=60 CBC Electronic Fma 01/14/2019 [facility]) WBC 7.7 x10^3/UL 4.0- 10.0 RBC 2.55 x10^6/UL Low 3.93-6.00 HGB 8.3 g/dL Low 12.0-17.0 25 HCT 26 % Low 35-50 26 MCV 101.2 fL High 80.0-95.0 MCH 32.5 pg High 25.6-32.2 MCHC 32.2 g/dL 32.2-36.0 RDW-CV 16.0 % High 11.6-14.4 PLT 140 x10^3/UL Low 163-400 MPV 11.3 fL 9.4-12.4 [place]iba# 4.42 x10^3/UL 1.56-6.13 Lymph# 1.92 x10^3/UL 1.18-3.74 [place]# 0.83 x10^3/UL High 0.24-0.82 Eos # 0.4 x10^3/UL 0.0-0.5 Baso # 0.06 x10^3/UL 0.01-0.08 [place]% 57.8 % 34.0-70.0 Lymph % 25.1 % 20.0-52.0 [place]% 10.8 % 5.0-12.0 Eos% 5.4 % 0.7-7.0 Baso% 0.8 % 0.1-1.2 Laboratory test 01/14/2019 [facility] Ammonia, 111 g/dL High 19-87 27 finding [address] [place] [address] (437)- - Laboratory test 01/01/2019 [facility] Potassium 3.9 mmol/L Normal 3.5-5.0 finding Redraw Magnesium 2.1 mg/dL Normal 1.9-2.7 Direct Bilirubin Redraw 0.20 mg/dL High 0.03-0.18 Ast Redraw 36 U/L Normal 13-39 Iron & Iron Binding Capacity 01/01/2019 [facility] Iron 75 g/dL Normal 50-212 Unsaturated Iron Binding < 213 g/dL Total Iron Binding Capacity 228 g/dL Low 250-450 Transferrin 163 mg/dL Low 203-362 % Iron Saturation 33 % Normal 15-55 Laboratory test finding 01/01/2019 [facility] Ferritin 117.2 ng/mL Normal 11- 307 Folic Acid (Folate) 11.95 ng/mL >3.99 Vitamin B12 892 pg/mL Normal 180-914 28 1 [facility] Severe Sepsis and Septic Shock Management Bundle Measure requires all lactic acids initially measuring >2.0 mmol/L be repeated. 2 Because ethnic data is not always [...] 5 Kidney failure <15 (or dialysis) 3 Troponin-I testing on Plasma Separator Tubes (PST) has a known false positive rate of 0.20-0.40%. All positive troponins reflex immediately to secondary confirmatory testing. Using the [employer] DxI 800 Access Immunoassay systems, the 99th percentile upper reference limit was demonstrated to be < 0.03 ng/mL. 4 Macrocytic anemia. Mild thrombocytopenia. No evidence of a hemolytic process. Reviewed by Mónica Snow MD 5 NON-FASTING 6 consistent w/ previous results 7 consistent w/ previous results 8 KIDNEY ISSUES PER PT 9 SEE RESULTS BELOW [id number] AP PC TRANSFUSED 04/02/19 2324 [id number] AP PC TRANSFUSED 04/03/19 0936 [id number] AP PC TRANSFUSED 04/04/19 0628 [id number] AP PC TRANSFUSED 04/04/19 0935 10 Normal Range 180 to 914 Indeterminate Range 145 to 180 Deficient Range <145 11 Macrocytic anemia. Mild thrombocytopenia. No evidence of a hemolytic process. Reviewed by Mónica Snow MD 12 Because ethnic data is not always readily [...] 15-29 5 Kidney failure <15 (or dialysis) 13 Consistent with Previous Results Reported on 03/27/19 14 Standard intensity warfarin therapeutic range: 2.0-3.0 High intensity warfarin therapeutic range: 2.5-3.5 15 SEE RESULT BELOW Name: BONNIE AGUILERA : [address]: Holden Gramajo Acct: [id number] Unit: [id number] AGE: 73 Location: ED Re04/02/19 SEX: F Status: REG ER SPEC: [id number] COR[place]: 04/02/19-[address]: Holden Betancourt DO REQ: [id number] RECD: 04/02/19 STATUS: NILA MARK DR: DO Rafat Roche MD _ SOURCE: STOOL SPDESC: ORDERED: Occult Bl, Scn Procedure Result Reported Site Stool Occult Blood (1) Final 04/02/19- 1729 ML Stool Occult Blood Positive Collection Date (1) 04/01/19 * ML - Main Lab . END OF REPORT DEPARTMENT OF PATHOLOGY, [address] [place] [address] Nic Weber M.D. Director [facility] # [id number] 16 Leukocytosis with absolute neutrophilia indicative of acute inflammatory/reactive process. Moderate to severe normocytic anemia with thrombocytopenia noted. Additional studies as clinically warranted. Reviewed by Dr. Weber 17 Because ethnic data is not always readily [...] 15-29 5 Kidney failure <15 (or dialysis) 18 SEE RESULT BELOW Name: BONNIE AGUILERA : [address]: Janelle Devi DO Acct: [id number] Unit: [id number] AGE: 73 Location: [place] [address] Re02/17/19 SEX: F Status: ADM IN SPEC: [id number] CORINA: 02/16/[address]: Holden Betancourt DO REQ: [id number] RECD: 02/16/19 STATUS: NILA MARK DR: Rafat Senior MD _ SOURCE: URINE SPDESC: ORDERED: Urine Culture Procedure Result Reported Site Urine Culture Final 02/18/19- 0915 ML No Growth (<1,000 CFU/mL) * ML - Main Lab . END OF REPORT DEPARTMENT OF PATHOLOGY, [address] [place] [address] Nic Weber M.D. Director [facility] # [id number] 19 Specimen hemolyzed. Result may not be valid. Critical Result LACT:4.6 Called to [id number] at: 21:05:59 by:[id number] Read back by:[facility] Severe Sepsis and Septic Shock Management Bundle Measure requires all lactic acids initially measuring >2.0 mmol/L be repeated. 20 SEE RESULT BELOW Name: BONNIE AGUILERA : [address]: Janelle Devi DO Acct: [id number] Unit: [id number] AGE: 73 Location: [place] [address] Re02/17/19 SEX: F Status: ADM IN SPEC: [id number] CORINA: 02/16/[address]: Holden Betancourt DO REQ: [id number] RECD: 02/16/19 STATUS: NILA MARK DR: Rafat Senior MD _ SOURCE: BLOOD,VENO SPDESC: ORDERED: Blood Cult COMMENTS: Verbal to [id number] by [id number] at 0706 on 02/17/19. Results read back accurately. Procedure Result Reported Site Aerobic Culture Bottle Final 02/18/19- 0906 ML Aerobic Bottle Gram Stain Gram Positive Cocci, resemb. Strep Organism 1 STREPTOCOCCUS CANIS 1. STREPTOCOCCUS CANIS M.I.C. RX --------- ------ Chloramphenicol 2 S Ampicillin <=0.06 S Penicillin <=0.03 S Cefepime <=0.25 S * Cefotaxime <=0.25 S Ceftriaxone <=0.25 S Levofloxacin 0.5 S Azithromycin <=0.25 S Clindamycin <=0.06 S Erythromycin <=0.06 S Tetracycline 2 S Vancomycin 0.5 S Anaerobic Culture Bottle Final 02/18/19- 0906 ML Anaerobic Btl Gram Stain Gram Positive Cocci Organism 1 STREPTOCOCCUS CANIS CONTINUED ON NEXT PAGE DEPARTMENT OF PATHOLOGY, [address] [place] [address] Nic Weber M.D. Director [facility] # [id number] Specimen: [id number] Collected: 02/16/19 Received: 02/16/19 (Continued) Procedure Result Reported Site Anaerobic Culture Bottle Final (continued) 02/18/19905 Please refer to [id number] culture AEROBIC bottle for sensitivity testing. * ML - Main Lab . END OF REPORT DEPARTMENT OF PATHOLOGY, [address] [place] [address] Nic Weber M.D. Director [facility] # [id number] 21 NASAL 22 Suboptimal collection technique may reduce sensitivity of test. Refer to the [facility] Test Catalog for collection information: [email or web address] As with all diagnostic procedures, the laboratory results obtained should be used in conjunction with other clinical information available to the physician, including confirmation by another method, as applicable. 23 Hand I Blocker: [id number] 24 Critical Result LACT:5.3 Called to [id number] at: 22:01:07 by:[id number] Read back by:[id number] [place] Severe Sepsis and Septic Shock Management Bundle Measure requires all lactic acids initially measuring >2.0 mmol/L be repeated. Critical Result LACT:5.3 Called to [id number] at: 22:01:07 by:[id number] Read back by:[id number] [facility] Severe Sepsis and Septic Shock Management Bundle Measure requires all lactic acids initially measuring >2.0 mmol/L be repeated. 25 RESULTS VERIFIED BY REPEAT ANALYSIS 26 RESULTS VERIFIED BY REPEAT ANALYSIS 27 Frozen Plasma Pour Off Fro m Lav Top EDTA Tube 28 Normal Range 180 to 914 Indeterminate Range 145 to 180 Deficient Range <145 Procedures Date Code Description Status 11/07/2016 468242300 Diabetic Retinal Eye Exam Completed 10/10/2014 [id number] Colonoscopy Completed 06/26/2004 [id number] Mammogram Completed Medical Devices Description No Information Available Encounters Type Date Location Provider Dx Diagnosis Office Visit 05/23/2019 Main Office Rafat Senior, E11.9 Type 2 diabetes 11:00a M.D. mellitus without complications K74.69 Other cirrhosis of liver R60.0 Localized edema K21.9 Gastro-esophageal reflux disease without esophagitis I10 Essential (primary) hypertension G93.40 Encephalopathy, unspecified Office Visit 03/03/2019 2:00p Main Office Rafat Senior, A40.9 Streptococcal sepsis, M.D. unspecified R60.0 Localized edema E11.9 Type 2 diabetes mellitus without complications R94.4 Abnormal results of kidney function studies K74.69 Other cirrhosis of liver K21.9 Gastro-esophageal reflux disease without esophagitis Office Visit 01/14/2019 11:40a Main Office Rafat Senior, I10 Essential ( primary) M.D. hypertension R60.0 Localized edema E11.9 Type 2 diabetes mellitus without complications R94.4 Abnormal results of kidney function studies K74.69 Other cirrhosis of liver K21.9 Gastro-esophageal reflux disease without esophagitis M17.0 Bilateral primary osteoarthritis of knee M10.00 Idiopathic gout, unspecified site Z86.73 Prsnl hx of TIA (TIA), and cereb infrc w/o resid deficits Assessments Date Code Description Provider 05/23/2019 E11.9 Type 2 diabetes mellitus without complications Rafat Senior M.D. 05/23/2019 K74.69 Other cirrhosis of liver Rafat Senior M.D. 05/23/2019 R60.0 Localized edema Rafat Senior M.D. 05/23/2019 K21.9 Gastro-esophageal reflux disease without Rafat Senior M.D. esophagitis 05/23/2019 I10 Essential (primary) hypertension Rafat Senior M.D. 05/23/2019 G93.40 Encephalopathy, unspecified Rafat T. Midura, M.D. 05/06/2019 E11.9 Type 2 diabetes mellitus without complications Rafat Senior M.D. 03/03/2019 A40.9 Streptococcal sepsis, unspecified Rafat Senior M.D. 03/03/2019 R60.0 Localized edema Rafat Senior M.D. 03/03/2019 E11.9 Type 2 diabetes mellitus without complications Rafat Senior M.D. 03/03/2019 R94.4 Abnormal results of kidney function studies Rafat Senior M.D. 03/03/2019 K74.69 Other cirrhosis of liver Rafat Senior M.D. 03/03/2019 K21.9 Gastro-esophageal reflux disease without Rafat Senior M.D. esophagitis 01/14/2019 I10 Essential (primary) hypertension Rafat Senior M.D. 01/14/2019 R60.0 Localized edema Rafat Senior M.D. 01/14/2019 E11.9 Type 2 diabetes mellitus without complications Rafat Senior M.D. 01/14/2019 R94.4 Abnormal results of kidney function studies Rafat Senior M.D. 01/14/2019 K74.69 Other cirrhosis of liver Rafat Senior M.D. 01/14/2019 K21.9 Gastro-esophageal reflux disease without Rafat Senior M.D. esophagitis 01/14/2019 M17.0 Bilateral primary osteoarthritis of knee Rafat Senior M.D. 01/14/2019 M10.00 Idiopathic gout, unspecified site Rafat Senior M.D. 01/14/2019 Z86.73 H/O: SHAYNE Senior M.D. Plan of Treatment 05/23/2019 - Rafat Senior M.D.E11.9 Type 2 diabetes mellitus without complicationsComments:Continue lantus and monitor blood sugar daily. Increase dose every 3-4 days by 2 units to get average blood sugar down to 150 vtzszrdF46.69 Other cirrhosis of liverComments:continue lactulose and wyorqxjD07.0 Localized edemaNew Medication:Torsemide 20 mg - take 2 dailyComments:continue torsemide and spironolactoneFollow up:Followup:. (Follow up)K21.9 Gastro-esophageal reflux disease without esophagitisFollow up:Followup: . (Follow up)I10 Essential (primary) ldruuekquzhtD18.40 Encephalopathy, unspecified Functional Status Description No Information Available Mental Status Description No Information Available Referrals Refer to Reason for Referral Status Appt Date Ioana Puckett MD Mha Priority. Consult and treat chronic Scheduled kidney failure w/ fluid retention. [address] [facility] ([facility] [address] [phone]
--- OUTSIDE RECORDS SUMMARY | 2019-06-09 08:43 | XMS REPORT ---
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 - Cici mellitus mellitus [id number] with with diabetic diabetic chronic chronic kidney kidney disease disease Hypertensiv Hypertensiv Diagnosis Active Mónica e chronic e chronic 04-18 Cici kidney kidney [id number] disease disease with stage with stage 1 through 1 through stage 4 stage 4 chronic chronic kidney kidney disease, or disease, or unspecified unspecified chronic chronic kidney kidney disease disease Chronic Chronic Diagnosis Active Mónica kidney kidney - Cici disease, disease, [id number] stage 4 stage 4 (severe) (severe) Anemia in Anemia in Diagnosis Active Mónica chronic chronic - Cici kidney kidney [id number] disease disease Unspecified Unspecified Diagnosis Active Mónica cirrhosis cirrhosis - Cici of liver of liver [id number] 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 pain pain Cici syndrome syndrome [id number] Primary Primary Diagnosis Active Mónica pulmonary pulmonary Cici hypertensio hypertensio [id number] n n Cardiomegal Cardiomegal Diagnosis Active Mónica y y Cici [id number] Nonalcoholi Nonalcoholi Diagnosis Active Mónica c c Cici steatohepat steatohepat [id number] itis (GODFREY) itis (GODFREY) Acute and Acute and Diagnosis Active Mónica subacute subacute Cici hepatic hepatic [id number] failure failure without without coma coma Gastro-esop Gastro-esop Diagnosis Active Mónica hageal hageal Cici reflux reflux [id number] disease disease without without esophagitis esophagitis Gout, Gout, Diagnosis Active Mónica unspecified unspecified Cici [id number] Age-related Age-related Diagnosis Active Mónica physical physical Cici debility 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 Active Mónica (current) (current) Cici use of use of [id number] insulin insulin Body mass Body mass Diagnosis Active Mónica index (BMI) index (BMI) Cici 50.0-59.9, 50.0-59.9, [id number] adult adult Personal Personal Diagnosis Active Mónica 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 Other long Other long Diagnosis Active Mónica term term Cici (current) (current) [id number] drug drug therapy therapy Pain frequent Pain Mgmt Active 2020-0 Dione pain 05-07 [place] 08:50: [id number] 00 Cardio edema Cardiovasc Active 2020-0 Dione ular 05-07 [place] 08:50: [id number] 00 Respiratory dyspnea Respirator Active 2020-0 Dione present y 05-07 [place] 08:50: [id number] 00 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 05-07 [place] dependence 08:50: [id number] 00 Endo/Satya diabetic Endo/Satya Active 2020-0 Dione foot care 05-07 [place] 08:50: [id number] 00 Nutrition nutritional Nutrition Active 2020-0 Dione restriction 05-07 [place] s 08:50: [id number] 00 Elimination diarrhea Eliminatio Active 2020-0 Dione n 05-07 [place] 08:50: [id number] 00 Activity ADL Activity Active 2020-0 Dione assistance 05-07 [place] required 08:50: [id number] 00 Activity self-care Activity Active 2020-0 Dione deficit 05-07 [place] 08:50: [id number] 00 Safety structural Safety Active 2020-0 Dione barriers 05-07 [place] present 08:50: [id number] 00 Safety fall risk Safety Active 2020-0 Dione factor 05-07 [place] present 08:50: [id number] 00 Safety risk for Safety Active 2020-0 Dione hospitaliza 05-07 [place] tion 08:50: [id number] 00 Safety can be left Safety Active 2019-0 Dione alone for 05-07 [place] only short 08:50: [id number] periods 00 Medication oral med Meds Active 2019-0 Dione assistance 05-07 [place] required 08:50: [id number] 00 Medication injectable Meds Active 2019-0 Dione med 05-07 [place] assistance 08:50: [id number] required 00 Medication knowledge/s Meds Active 2019-0 Dione kill 05-07 [place] deficit: pt 08:50: [id number] 00 Musculoskel transfer Musculoske Active 2019-0 Dione etal assistance letal 05-07 [place] required 08:50: [id number] 00 Bed transfer PT/OT: Bed Active 2020-0 Peter Mobility/Tr deficit: Mobility/T 3-12 autumn Martinez sit/stand ransfer 13:00: PT 00 [id number] Bed transfer PT/OT: Bed Active 2020-0 Peter Mobility/Tr deficit: Mobility/T 3-12 autumn Martinez standing ransfer 13:00: PT pivot 00 [id number] Bed transfer PT/OT: Bed Active 2020-0 Peter Mobility/Tr deficit: Mobility/T 3-12 autumn Martinez toilet/comm ransfer 13:00: PT ode 00 [id number] Bed transfer PT/OT: Bed Active 2020-0 Peter Mobility/Tr deficit: Mobility/T 3-12 autumn Martinez shower/tub ransfer 13:00: PT 00 [id number] Bed knowledge/s PT/OT: Bed Active 2020-0 Peter Mobility/Tr kill Mobility/T 3-12 autumn Martinez deficit: pt ransfer 13:00: PT 00 [id number] Gait/Locomo knowledge/s PT/OT: Active 2020-0 Peter tion kill Gait/Locom 3-12 Juan, problems deficit: pt otion 13:00: PT 00 825122-7 Gait/Locomo gait PT/OT: Active 2020-0 Peter tion deficit Gait/Locom 3-12 Juan, problems otion 13:00: PT 00 [id number] Allergies, Adverse Reactions, Alerts Allergy Allergy Status Severity Reaction(s) Onset Inactive Treating Comments Name Type Date Date Clinician Unknown None Active Unknown None Unknown No Known Allergies For This Patient Medications Ordered Filled Start Stop Current Ordering Indication Dosage Frequency Signature Comments Components Medication Medication Date Date Medication? Clinician (SIG) Name Name allopurinoL allopurinoL 2019-0 Yes Midura Unknown Unknown 300 mg 300 mg 3-12 MD,Rafat tablet tablet nadoloL 20 nadoloL 20 2019-0 Yes Midura Unknown Unknown mg [...] TORRES million million unit powder unit powder [place] 3-6-9 [place] 3-6-9 Yes Midura Unknown Unknown 1,200 mg [...]
--- OUTSIDE RECORDS SUMMARY | 2019-06-09 08:43 | XMS REPORT ---
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 Caitlin (current) (current) Carrier RN use of use of insulin insulin Body mass Body mass Diagnosis Active Caitlin index (BMI) index (BMI) Carrier RN 50.0-59.9, 50.0-59.9, adult adult Personal Personal Diagnosis Active Acitlin history of history of Carrier RN peptic [...] Pain Mgmt Active 2020-0 Dione pain 05-07 [place] 08:50: [id number] 00 Cardio edema Cardiovasc Active 2020-0 Dione ular 05-07 [place] 08:50: [id number] 00 Respiratory dyspnea Respirator Active 2020-0 Dione present y 05-07 [place] 08:50: [id number] 00 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 05-07 [place] dependence 08:50: [id number] 00 Endo/Satya diabetic Endo/Satya Active 2020-0 Dione foot care 05-07 [place] 08:50: [id number] 00 Nutrition nutritional Nutrition Active 2020-0 Dione restriction 05-07 [place] s 08:50: [id number] 00 Elimination diarrhea Eliminatio Active 2020-0 Dione n 05-07 [place] 08:50: [id number] 00 Activity ADL Activity Active 2020-0 Dione assistance 05-07 [place] required 08:50: [id number] 00 Activity self-care Activity Active 2020-0 Dione deficit 05-07 [place] 08:50: [id number] 00 Safety structural Safety Active 2020-0 Dione barriers 05-07 [place] present 08:50: [id number] 00 Safety fall risk Safety Active 2020-0 Dione factor 05-07 [place] present 08:50: [id number] 00 Safety risk for Safety Active 2020-0 Dione hospitaliza 05-07 [place] tion 08:50: [id number] 00 Safety can be left Safety Active 2020-0 Dione alone for 05-07 [place] only short 08:50: [id number] periods 00 Medication oral med Meds Active 2020-0 Dione assistance 05-07 [place] required 08:50: [id number] 00 Medication injectable Meds Active 2019-0 Dione med 05-07 [place] assistance 08:50: [id number] required 00 Medication knowledge/s Meds Active 2019-0 Dione kill 05-07 [place] deficit: pt 08:50: [id number] 00 Musculoskel transfer Musculoske Active 2019-0 Dione etal assistance letal 05-07 [place] required 08:50: [id number] 00 Bed transfer PT/OT: Bed Active 2019-0 Peter Mobility/Tr deficit: Mobility/T 3-12 autumn Martinez sit/stand ransfer 13:00: PT 00 [id number] Bed transfer PT/OT: Bed Active 2019-0 Peter Mobility/Tr deficit: Mobility/T 3-12 autumn Martinez standing ransfer 13:00: PT pivot 00 [id number] Bed transfer PT/OT: Bed Active 2019-0 Peter Mobility/Tr deficit: Mobility/T 3-12 autumn Martinez toilet/comm ransfer 13:00: PT ode 00 363469-5 Bed transfer PT/OT: Bed Active 2019-0 Peter Mobility/Tr deficit: Mobility/T 3-12 autumn Martinez shower/tub ransfer 13:00: PT 00 389562-3 Bed knowledge/s PT/OT: Bed Active 2019-0 Peter Mobility/Tr kill Mobility/T 3-12 autumn Martinez deficit: pt ransfer 13:00: PT 00 727331-3 Gait/Locomo knowledge/s PT/OT: Active 2019-0 Peter tion kill Gait/Locom 3-12 Juan, problems deficit: pt otion 13:00: PT 00 247476-3 Gait/Locomo gait PT/OT: Active 2020-0 Peter tion deficit Gait/Locom 3-12 Juan, problems otion 13:00: PT 00 123178-6 Nutrition knowledge/s Nutrition Active 2020-0 Caitlin kill [...] potential Meds Resolve 2019-05-16 Caitlin clinically d 05-15 12:20:00 Carrier RN significant 12:20: medication 00 [...] Midura Unknown Unknown 300 mg 300 mg 312 Rafat TORRES tablet tablet nadoloL 20 nadoloL 20 Yes Midura Unknown Unknown mg tablet mg tablet 12 Rafat TORRES ferrous ferrous Yes Midura Unknown [...] Unknown Unknown (bulk) 50 (bulk) 50 3-12 ,Rafat million million unit powder unit powder [place] 3-6-9 [place] 3-6-9 2019-0 Yes Midura Unknown Unknown 1,200 [...] Unknown Unknown 10 gram/15 10 gram/15 3-20 MDRafat mL (15 mL) mL (15 mL) oral oral solution solution Xifaxan 550 Xifaxan 550 2019-0 Yes Midura Unknown Unknown mg tablet mg tablet 3-20 MDRafat Lantus Lantus 2019-0 Yes Midura Unknown Unknown Solostar Solostar 3-20 MDRafat U-100 U-100 Insulin 100 Insulin 100 [...]
--- OUTSIDE RECORDS SUMMARY | 2019-06-09 08:43 | XMS REPORT ---
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 diabetes - Cici mellitus mellitus [id number] with with diabetic diabetic chronic chronic kidney kidney disease disease Hypertensiv Hypertensiv Diagnosis Active Mónica e chronic e chronic 04-18 Cici kidney kidney [id number] disease disease with stage with stage 1 through 1 through stage 4 stage 4 chronic chronic kidney kidney disease, or disease, or unspecified unspecified chronic chronic kidney kidney disease disease Chronic Chronic Diagnosis Active Mónica kidney kidney - Cici disease, disease, [id number] stage 4 stage 4 (severe) (severe) Anemia in Anemia in Diagnosis Active Mónica chronic chronic - Cici kidney kidney [id number] disease disease Unspecified Unspecified Diagnosis Active Mónica cirrhosis cirrhosis - Cici of liver of liver [id number] 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 penia penia Chronic Chronic Diagnosis Active Mónica pain pain Cici syndrome syndrome [id number] Primary Primary Diagnosis Active Mónica pulmonary pulmonary Cici hypertensio hypertensio [id number] n n Cardiomegal Cardiomegal Diagnosis Active Mónica y y Cici [id number] Nonalcoholi Nonalcoholi Diagnosis Active Mónica c c Cici steatohepat steatohepat [id number] itis (GODFREY) itis (GODFREY) Acute and Acute and Diagnosis Active Mónica subacute subacute Cici hepatic hepatic [id number] failure failure without without coma coma Gastro-esop Gastro-esop Diagnosis Active Mónica hageal hageal Cici reflux reflux [id number] disease disease without without esophagitis esophagitis Gout, Gout, Diagnosis Active Mónica unspecified unspecified Cici [id number] Age-related Age-related Diagnosis Active Mónica physical physical Cici debility debility 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 (current) (current) Cici use of use of [id number] insulin insulin Body mass Body mass Diagnosis Active Mónica index (BMI) index (BMI) Cici 50.0-59.9, 50.0-59.9, [id number] adult adult Personal Personal Diagnosis Active Mónica history of history of Cici peptic peptic [id number] ulcer ulcer disease disease Other long Other long Diagnosis Active Mónica term term Cici (current) (current) [id number] drug drug therapy therapy Pain frequent Pain Mgmt Active 2020-0 Dione pain 05-07 [place] 08:50: [id number] 00 Cardio edema Cardiovasc Active 2020-0 Dione ular 05-07 [place] 08:50: [id number] 00 Respiratory dyspnea Respirator Active 2020-0 Dione present y 05-07 [place] 08:50: [id number] 00 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 05-07 [place] dependence 08:50: [id number] 00 Endo/Satya diabetic Endo/Satya Active 2020-0 Dione foot care 05-07 [place] 08:50: [id number] 00 Nutrition nutritional Nutrition Active 2020-0 Dione restriction 05-07 [place] s 08:50: [id number] 00 Elimination diarrhea Eliminatio Active 2020-0 Dione n 05-07 [place] 08:50: [id number] 00 Activity ADL Activity Active 2020-0 Dione assistance 05-07 [place] required 08:50: [id number] 00 Activity self-care Activity Active 2020-0 Dione deficit 05-07 [place] 08:50: [id number] 00 Safety structural Safety Active 2020-0 Dione barriers 05-07 [place] present 08:50: [id number] 00 Safety fall risk Safety Active 2020-0 Dione factor 05-07 [place] present 08:50: [id number] 00 Safety risk for Safety Active 2020-0 Dione hospitaliza 05-07 [place] tion 08:50: [id number] 00 Safety can be left Safety Active 2019-0 Dione alone for 05-07 [place] only short 08:50: [id number] periods 00 Medication oral med Meds Active 2019-0 Dione assistance 05-07 [place] required 08:50: [id number] 00 Medication injectable Meds Active 2019-0 Dione med 05-07 [place] assistance 08:50: [id number] required 00 Medication knowledge/s Meds Active 2019-0 Dione kill 05-07 [place] deficit: pt 08:50: [id number] 00 Musculoskel transfer Musculoske Active 2019-0 Dione etal assistance letal 05-07 [place] required 08:50: [id number] 00 Bed transfer PT/OT: Bed Active 2020-0 Peter Mobility/Tr deficit: Mobility/T 3-12 autumn Martinez sit/stand ransfer 13:00: PT 00 752652-7 Bed transfer PT/OT: Bed Active 2020-0 Peter Mobility/Tr deficit: Mobility/T 3-12 autumn Martinez standing ransfer 13:00: PT pivot 00 922598-6 Bed transfer PT/OT: Bed Active 2020-0 Peter Mobility/Tr deficit: Mobility/T 3-12 autumn Martinez toilet/comm ransfer 13:00: PT ode 00 050585-6 Bed transfer PT/OT: Bed Active 2020-0 Peter Mobility/Tr deficit: Mobility/T 3-12 autumn Martinez shower/tub ransfer 13:00: PT 00 924270-0 Bed knowledge/s PT/OT: Bed Active 2020-0 Peter Mobility/Tr kill Mobility/T 3-12 autumn Martinez deficit: pt ransfer 13:00: PT 00 720021-8 Gait/Locomo knowledge/s PT/OT: Active 2020-0 Peter tion kill Gait/Locom 3-12 Juan, problems deficit: pt otion 13:00: PT 00 788939-7 Gait/Locomo gait PT/OT: Active 2020-0 Peter tion deficit Gait/Locom 3-12 Juan, problems otion 13:00: PT 00 143969-5 Allergies, Adverse Reactions, Alerts Allergy Allergy Status [...] TORRES million million unit powder unit powder [place] 3-6-9 [place] 3-6-9 Yes Midura Unknown Unknown 1,200 mg [...]
--- OUTSIDE RECORDS SUMMARY | 2019-06-09 08:43 | XMS REPORT ---
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 diabetes 2- Cici mellitus mellitus [id number] with with diabetic diabetic chronic chronic kidney kidney disease disease Hypertensiv Hypertensiv Diagnosis Active Mónica e chronic e chronic - Cici kidney kidney [id number] disease disease with stage with stage 1 through 1 through stage 4 stage 4 chronic chronic kidney kidney disease, or disease, or unspecified unspecified chronic chronic kidney kidney disease disease Chronic Chronic Diagnosis Active Mónica kidney kidney - Cici disease, disease, [id number] stage 4 stage 4 (severe) (severe) Anemia in Anemia in Diagnosis Active Mónica chronic chronic - Cici kidney kidney [id number] disease disease Unspecified Unspecified Diagnosis Active Mónica cirrhosis cirrhosis 2- Cici of liver of liver [id number] Other Other Diagnosis Active Mónica primary primary - Cici thrombocyto thrombocyto [id number] penia penia Chronic Chronic Diagnosis Active Mónica pain pain Cici syndrome syndrome [id number] Primary Primary Diagnosis Active Mónica pulmonary pulmonary Cici hypertensio hypertensio [id number] n n Cardiomegal Cardiomegal Diagnosis Active Mónica y y Cici [id number] Nonalcoholi Nonalcoholi Diagnosis Active Mónica c c Cici steatohepat steatohepat [id number] itis (GODFREY) itis (GODFREY) Acute and Acute and Diagnosis Active Mónica subacute subacute Cici hepatic hepatic [id number] failure failure without without coma coma Gastro-esop Gastro-esop Diagnosis Active Mónica hageal hageal Cici reflux reflux [id number] disease disease without without esophagitis esophagitis Gout, Gout, Diagnosis Active Mónica unspecified unspecified Cici [id number] Age-related Age-related Diagnosis Active Mónica physical physical Cici debility debility 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 Active Mónica (current) (current) Cici use of use of [id number] insulin insulin Body mass Body mass Diagnosis Active Mónica index (BMI) index (BMI) Cici 50.0-59.9, 50.0-59.9, [id number] adult adult Personal Personal Diagnosis Active Mónica history of history of Cici peptic peptic [id number] ulcer ulcer disease disease Other long Other long Diagnosis Active Mónica term term Cici (current) (current) [id number] drug drug therapy therapy Pain frequent Pain Mgmt Active 2020-0 Dione pain 05-07 [place] 08:50: [id number] 00 Cardio edema Cardiovasc Active 2020-0 Dione ular 05-07 [place] 08:50: [id number] 00 Respiratory dyspnea Respirator Active 2020-0 Dione present y 05-07 [place] 08:50: [id number] 00 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 05-07 [place] dependence 08:50: [id number] 00 Endo/Satya diabetic Endo/Satya Active 2020-0 Dione foot care 05-07 [place] 08:50: [id number] 00 Nutrition nutritional Nutrition Active 2020-0 Dione restriction 05-07 [place] s 08:50: [id number] 00 Elimination diarrhea Eliminatio Active 2020-0 Dione n 05-07 [place] 08:50: [id number] 00 Activity ADL Activity Active 2020-0 Dione assistance 05-07 [place] required 08:50: [id number] 00 Activity self-care Activity Active 2020-0 Dione deficit 05-07 [place] 08:50: [id number] 00 Safety structural Safety Active 2020-0 Dione barriers 05-07 [place] present 08:50: [id number] 00 Safety fall risk Safety Active 2020-0 Dione factor 05-07 [place] present 08:50: [id number] 00 Safety risk for Safety Active 2020-0 Dione hospitaliza 05-07 [place] tion 08:50: [id number] 00 Safety can be left Safety Active 2019-0 Idone alone for 05-07 [place] only short 08:50: [id number] periods 00 Medication oral med Meds Active 2019-0 Dione assistance 05-07 [place] required 08:50: [id number] 00 Medication injectable Meds Active 2019-0 Dione med 05-07 [place] assistance 08:50: [id number] required 00 Medication knowledge/s Meds Active 2019-0 Dione kill 05-07 [place] deficit: pt 08:50: [id number] 00 Musculoskel transfer Musculoske Active 2019-0 Dione etal assistance letal 05-07 [place] required 08:50: [id number] 00 Bed transfer PT/OT: Bed Active 2020-0 Peter Mobility/Tr deficit: Mobility/T 3-12 autumn Martinez sit/stand ransfer 13:00: PT 00 [id number] Bed transfer PT/OT: Bed Active 2020-0 Peter Mobility/Tr deficit: Mobility/T 3-12 autumn Martinez standing ransfer 13:00: PT pivot 00 [id number] Bed transfer PT/OT: Bed Active 2020-0 Peter Mobility/Tr deficit: Mobility/T 3-12 autumn Martinez toilet/comm ransfer 13:00: PT ode 00 104178-2 Bed transfer PT/OT: Bed Active 2020-0 Peter Mobility/Tr deficit: Mobility/T 3-12 autumn Martinez shower/tub ransfer 13:00: PT 00 241080-9 Bed knowledge/s PT/OT: Bed Active 2020-0 Peter Mobility/Tr kill Mobility/T 3-12 autumn Martinez deficit: pt ransfer 13:00: PT 00 [id number] Gait/Locomo knowledge/s PT/OT: Active 2020-0 Peter tion kill Gait/Locom 3-12 Juan, problems deficit: pt otion 13:00: PT 00 305196-6 Gait/Locomo gait PT/OT: Active 2020-0 Peter tion deficit Gait/Locom 3-12 Juan, problems otion 13:00: PT 00 205089-5 Allergies, Adverse Reactions, Alerts Allergy Allergy Status [...] TORRES million million unit powder unit powder [place] 3-6-9 [place] 3-6-9 Yes Midura Unknown Unknown 1,200 mg [...]
--- OUTSIDE RECORDS SUMMARY | 2019-06-09 08:43 | XMS REPORT | Continuity of Care Document ---
:1945 External Reference #:[id number] Author Name Ferdinand Smart MD (transmitted by agent of provider Laura Ramires) Address [address] [place] [id number] Care Team Providers Name Role Phone Rafat Senior MD - Family Medicine Care Team Information Label Folder Problems Active Problems Provider Date Nonalcoholic steatohepatitis Ferdinand Smart MD Onset: 03/12/2019 Social History Type Date Description Comments Sex Unknown Tobacco Use Start: Unknown End: Unknown Patient is a former smoker Smoking Status Reviewed: 03/12/19 Patient is a former smoker Allergies, Adverse Reactions, Alerts Description No Known Drug Allergies Medications Active Medications SIG Qnty Indications Ordering Date Provider Lantus Solostar 15 units bid Rafat Senior, 100Unit/ML Solution Pen-Inject Omeprazole take 1 capsule by Mahad Benjamin, 20mg mouth twice daily. Capsules Furosemide 20 -40 mg daily Unknown 20mg Tablets Atenolol Take 1 Tablet By Unknown 50mg Tablets Mouth Once Daily Lisinopril Take 1 Tablet By Unknown 20mg Mouth Daily For Tablets High Blood Pressure Atorvastatin Calcium Take 1 Tablet By Unknown Mouth AT Bedtime 40mg Tablets For Cholesterol Lactulose Unknown 10GM/15ML Solution Nystop Apply Topically To Unknown [id number] Affected Area Twice Powder A Day Aspirin 81 1 by mouth every Unknown 81mg day Tablets DR CBD 100 MG daily Unknown Immunizations Description No Information Available Vital Signs Date Vital Result Comment 03/12/2019 1:46pm BP Systolic 104 mmHg BP Diastolic 63 mmHg Heart Rate 80 /min 12/14/2014 11:34am Height 63 inches 5'3" Weight 238.50 lb BP Systolic 140 mmHg BP Diastolic 92 mmHg Heart Rate 66 /min BMI (Body Mass Index) 42.2 kg/m2 Results Test Acquired Date Facility Test Result H/L Range Note Stool Occult 04/02/2019 [facility] [place] Stool Occult SEE RESULT 1 Blood, Screen Blood, Screen BELOW Xray 02/16/2019 [facility] [place] Radiology Chest Ap Or <pending> Port 1 SEE RESULT BELOW Name: BONNIE BAE : [address]: Holden Gramajo Acct: [id number] Unit: [id number] AGE: 73 Location: ED Re04/02/19 SEX: F Status: REG ER SPEC: [id number] [place]: 04/02/19-[address]: Holden Betancourt DO REQ: [id number] RECD: 04/02/19 STATUS: NILA MARK DR: DO Rafat Roche MD _ SOURCE: STOOL SPDESC: ORDERED: Occult Bl, Scn Procedure Result Reported Site Stool Occult Blood (1) Final 04/02/19- 1729 ML Stool Occult Blood Positive Collection Date (1) 04/01/19 * [facility] - Main Lab . END OF REPORT DEPARTMENT OF PATHOLOGY, [address] [place] [address] Nic Weber M.D. Director [facility] # [id number] Procedures Date Code Description Status 02/18/2019 37269 EGD+Biopsy Single Or Multiple Completed Medical Devices Description No Information Available Encounters Type Date Location Provider Dx Diagnosis Office Visit 03/12/2019 [facility] Ferdinand Luther K75.81 Nonalcoholic 1:45p [facility] MD Bing steatohepatitis ([place]) Assessments Date Code Description Provider 04/07/2019 K75.81 Nonalcoholic steatohepatitis ([place]) Ferdinand Smart MD 04/06/2019 K75.81 Nonalcoholic steatohepatitis ([place]) Ferdinand Smart MD 04/05/2019 K75.81 Nonalcoholic steatohepatitis ([place]) Ferdinand Smart MD 04/04/2019 K75.81 Nonalcoholic steatohepatitis ([place]) Ferdinand Smart MD 03/12/2019 K75.81 Nonalcoholic steatohepatitis ([place]) Ferdinand Smart MD 02/18/2019 K92.2 Gastrointestinal hemorrhage, unspecified Erika Garrett MD 02/18/2019 I85.00 Esophageal varices without bleeding Erika Barrientos MD 02/17/2019 D64.9 Anemia, unspecified Ferdinand Smart MD Plan of Treatment 03/12/2019 - Ferdniand Smart MDK75.81 Nonalcoholic steatohepatitis ([place]) Comments:The patient I had a long discussion with her and her . We discussed the natural history of-. I do believe that his weight and not ascites that is contributing to her increased abdominal girth. Her most recent ultrasound looked okay. She will continue with her medications and I would like tosee her back in 3 months Functional Status Description No Information Available Mental Status Description No Information Available Referrals Description No Information Available
--- NOTE | 2019-06-09 09:21 | ED ---
Altered Mental Status - HPI Summary HPI Summary: This pt is a 73yo F with a hx of DM, GODFREY, CHF, CAD, HTN, ESRD, hepatic encephalopathy and Liver failure presents to the ED with AMS per by way of EMS. Pt states she is typically altered when she has elevated ammonia levels. Denies feeling confused. Denies fatigue. States she has remained on all her medications without missing doses. Per [facility] hospitalist service prior to discharge she was prescribed Rifaximin but d/t finances, has been unable to obtain it. Denies any weight loss or gain. Denies any type of fluids losses ( diarrhea, vomiting, etc). Denies edema. Per records, hx of ESRD not currently on dialysis. Continues to take 3x 20ml Lactulose daily. Per , she was answering his questions abnormally and unable to correctly state date, time, and other pertinent information. Denies cough, shortness of breath, headache, urinary symptoms, bowel issues. Patient denies any gross blood per rectum. Last bowel movement this morning and was normal. No diarrhea. Pt denies any symptoms today and states she feels otherwise at her baseline other than mild nausea. Eating and drinking OK per patient. - History Of Current Complaint Chief Complaint: EDGeneral Stated Complaint: CONFUSED PER SON Time Seen by Provider: 06/09/19 08:43 Hx Obtained From: Patient, Family/[employer]ting [employer], EMS Onset/Duration: Unknown Timing: Constant Severity Initially: Moderate Severity Currently: Mild Character: Confusion, Lethargy Aggravating Factor(s): Nothing Alleviating Factor(s): Nothing Associated Signs And Symptoms: Negative: Seizure, Nausea, Vomiting, Fever, Nuchal Rigity, Headache, Recently Depressed, Remote Trauma - Risk Factors Cardiac Risk Factors: Diabetes, CAD CVA Risk Factor: Negative - Allergies/Home Medications Allergies/Adverse Reactions: Allergies Allergy/AdvReac Type Severity Reaction Status Date / Time No Known Allergies Allergy Verified 06/09/19 08:43 Home Medications: Home Medications Ferrous Gluconate TAB* [Fergon TAB*] 324 mg PO DAILY #30 tab 02/21/19 [Rx Confirmed 06/09/19] [place]-3 Fatty Acids (Nf) [Fish Oil (NF)] 1,000 mg PO DAILY 04/02/19 [History Confirmed 06/09/19] Nadolol TAB* [Corgard TAB*] 20 mg PO DAILY tab 04/18/19 [Rx Confirmed 06/09/19] Pantoprazole TAB * [Protonix TAB*] 40 mg PO BID tab 04/18/19 [Rx Confirmed ] Spironolactone TAB* [Aldactone TAB 25 MG*] 50 mg PO DAILY tab 04/18/19 [Rx Confirmed 06/09/19] Torsemide TAB* [Demadex 20 MG*] 40 mg PO DAILY tab 04/18/19 [Rx Confirmed 06/08] Nystatin TOP POWDER* 1 applic TOPICAL BID PRN 05/13/19 [History Confirmed ] RiFAXimin* [Xifaxan*] 550 mg PO BID #60 tab 05/15/19 [Rx Confirmed 06/09/19] Allopurinol TAB* [Zyloprim 100 MG TAB*] 300 mg PO DAILY 06/09/19 [History Confirmed 06/09/19] Aspirin EC TAB* [Ecotrin EC Low Dose 81 MG*] 81 mg PO DAILY 06/09/19 [History Confirmed 06/09/19] Cannabidiol (CBD) Extract (NF) [Epidiolex (NF)] 100 mg PO DAILY 06/09/19 [ History Confirmed 06/09/19] Insulin Glargine,Hum.rec.anlog [Lantus Solostar 100 units/ml 3 ml x 5 PENS] 8 units SUBCUT DAILY 06/09/19 [History Confirmed 06/09/19] Lactulose* 30 ml PO .BID-TID MDD 90ml 06/09/19 [History Confirmed 06/09/19] oxyCODONE TAB* [Roxycodone TAB 5 mg*] 2.5 - 5 mg PO QID PRN 06/09/19 [History Confirmed 06/09/19] PMH/Surg Hx/FS Hx/Imm Hx Previously Healthy: No Endocrine/Hematology History: Reports: Hx Blood Transfusions, Hx Diabetes, Hx Anemia Cardiovascular History: Reports: Hx Congenital Heart Disease - Patent foramen ovale, Hx Congestive Heart Failure, Hx Coronary Artery Disease, Hx Hypercholesterolemia, Hx Hypertension, Other Cardiovascular Problems/Disorders - Lymphedema on abdomen Denies: Hx Angina, Hx Myocardial Infarction, Hx Pacemaker/ICD Respiratory History: Denies: Hx Asthma, Hx Chronic Obstructive Pulmonary Disease (COPD) GI History: Reports: Hx Gastroesophageal Reflux Disease, Hx Gastrointestinal Bleed - Gastric antral vascular ecstasia, Hx Ulcer - Peptic ulcer disease, Other GI Disorders - non alcoholic cirrhosis, ascites, esophageal varices History: Reports: Hx Acute Renal Failure, Hx Chronic Renal Failure - Chronic renal fx r/t naproxen Denies: Hx Dialysis Musculoskeletal History: Reports: Hx Arthritis - knees, Hx Back Problems, Hx Gout, Hx Osteoporosis Sensory History: Reports: Hx Cataracts, Hx Contacts or Glasses, Hx Vision Problem, Hx Hearing Problem Denies: Hx Eye Injury, Hx Eye Prosthesis, Hx Glaucoma, Hx Legally Blind, Hx Macular Degeneration, Hx Deafness, Hx Hearing Aid, Other Sensory Impairments Opthamlomology History: Reports: Hx Cataracts, Hx Contacts or Glasses, Hx Vision Problem Denies: Hx Eye Injury, Hx Eye Prosthesis, Hx Glaucoma, Hx Legally Blind, Hx Macular Degeneration, Other Sensory Impairments Neurological History: Reports: Hx Transient Ischemic Attacks (TIA), Other Neuro Impairments/Disorders - Restless Leg Syndrome Denies: Hx Dementia, Hx Seizures Psychiatric History: Denies: Hx Panic Disorder - Cancer History Cancer Type, Location and Year: BRAIN TUMOR S/P 30 YRS Hx Chemotherapy: No Hx Radiation Therapy: No - Surgical History Surgery Procedure, Year, and Place: Tonsillectomy, catarats - Immunization History Hx Pertussis Vaccination: No Immunizations Up to Date: Yes Infectious Disease History: No Infectious Disease History: Denies: Hx Hepatitis, Hx of Known/Suspected MRSA, Hx Shingles, Hx Tuberculosis, Hx Known/Suspected VRE, Hx Known/Suspected VRSA, Traveled Outside the [place] in Last 30 Days - Family History Known Family History: Positive: None, Cardiac Disease - ND - Social History Occupation: Unemployed Lives: With Family Alcohol Use: None Hx Substance Use: No Substance Use Type: Reports: None Substance Use Comment - Amount & Last Used: unknown Hx Tobacco Use: No Smoking Status (MU): Never Smoked Tobacco Review of Systems Negative: Fever, Chills, Fatigue, Skin Diaphoresis Negative: Palpitations, Chest Pain Negative: Shortness Of Breath, Cough Genitourinary: Negative Positive: no symptoms reported, see HPI Negative: Arthralgia, Myalgia Skin: Negative All Other Systems Reviewed And Are Negative: Yes Physical Exam Triage Information Reviewed: Yes Vital Signs On Initial Exam: Initial Vitals Temp Pulse Resp BP Pulse Ox 99.1 F 79 16 177/96 99 06/09/19 08:31 06/09/19 08:31 06/09/19 08:31 06/09/19 08:31 06/09/19 08:31 Vital Signs Reviewed: Yes Appearance: Positive: Well-Appearing, Well-Nourished Skin: Positive: Warm, Skin Color Reflects Adequate Perfusion Head/Face: Positive: Normal Head/Face Inspection Eyes: Positive: EOMI, FELICIA, Conjunctiva Clear Neck: Positive: Supple, No Lymphadenopathy Respiratory/Lung Sounds: Positive: Clear to Auscultation, Breath Sounds Present Musculoskeletal: Positive: Strength/ROM Intact Neurological: Positive: Speech Normal Psychiatric: Positive: Normal, Affect/Mood Appropriate AVPU Assessment: Alert Procedures - Sedation Patient Received Moderate/Deep Sedation with Procedure: No Diagnostics - Vital Signs Vital Signs Temp Pulse Resp BP Pulse Ox 06/09/19 08:31 99.1 F 79 16 177/96 99 - Laboratory Result Diagrams: 06/09/19 09:18 06/09/19 09:18 Lab Statement: Any lab studies that have been ordered have been reviewed, and results considered in the medical decision making process. Altered Mental Statu Course/Dx - Course Course Of Treatment: Patient is evaluated for altered mental per . Patient is alert and oriented 3, however tends to answer some questions with numbers and is very slow to respond. Unsure of patients baseline. Typically confused when encephalopathic. Ammonia level CXLVIII. Sodium 133. Magnesium level severe with <0.5. Pt repleted with 4g IV mag. Pt was placed on cardiopulm monitor. EKG obtained on arrival - NSR with rate of 75. Discussed with hospitalist recommending repeat magnesium level following 4mg repletion. Follow up level 3.4. Called Dr. Owens office for f/u appt. Has appt scheduled now with Dr. Maribel Ibarra for next Sunday for recheck. Will start PO magnesium 400mg BID on Sunday. Alcohol and drug urine tox negative. - Diagnoses Differential Diagnosis/HQI/PQRI: Metabolic Disorder Provider Diagnoses: Hypomagnesemia - Provider Notifications Discussed Care Of Patient With: Nima Ibarra Instructed by Provider To: Will See In ED Discharge ED - Sign-Out/Discharge Documenting (check all that apply): Patient Departure - Discharge Plan Condition: Stable Disposition: HOME Patient Education Materials: Hypomagnesemia (ED) Referrals: Rafat Senior MD [Primary Care Provider] - Additional Instructions: Recheck in 1 week your magnesium Start magnesium on Sunday - take 400mg twice daily until your follow up appointment You have an appointment June [address] Ibarra [facility] office [address] [place] [address] If you have any worsening symptoms, please return to the ED - Billing Disposition and Condition Condition: STABLE Disposition: Home
[2019-06-09 09:28] LABS: Hematocrit 31 % (35-47); Hemoglobin 10.6 g/dL (12.0-16.0); Mean Corpuscular HGB Conc 34 g/dL (31-36); Mean Corpuscular Hemoglobin 34 pg (27-31); Mean Corpuscular Volume 101 fL (80-97); Mean Platelet Volume 9.9 fL (7.4-10.4); Platelet Count 103 10^3/uL (150-450); Red Blood Count 3.11 10^6 /uL (3.70-4.87); Red Cell Distribution Width 17 % (10-15); White Blood Count 5.3 10^3/uL (3.5-10.8)
[2019-06-09 09:37] LABS: ABS Basophils 0.1 10^3/ul (0-0.2); ABS Eosinophils 0.1 10^3/ul (0-0.6); ABS Lymphocytes 1.8 10^3/ul (1.0-4.8); ABS Monocytes 0.4 10^3/ul (0-0.8); ABS Neutrophils 2.9 10^3/ul (1.5-7.7); Eosinophil % 2.7 %; Lymphocyte % 34.6 %
[2019-06-09 09:38] LABS: INR 1.15 (0.82-1.09)
[2019-06-09 09:51] LABS: ALT 18 U/L (7-52); AST 37 U/L (13-39); Albumin 2.8 g/dL (3.2-5.2); Albumin/Globulin Ratio 0.6 (1-3); Alkaline Phosphatase 170 U/L (34-104); Anion Gap 8 mmol/L (2-11); Blood Urea Nitrogen 74 mg/dL (6-24); CO2 Carbon Dioxide 21 mmol/L (22-32); Calcium 10.2 mg/dL (8.6-10.3); Chloride 104 mmol/L (101-111); EGFR African American 19.6 (>60); EGFR Non-African American 16.2 (>60); Globulin 4.9 g/dL (2-4); Glucose 202 mg/dL (70-100); Potassium 4.6 mmol/L (3.5-5.0); Sodium 133 mmol/L (135-145); Total Protein 7.7 g/dL (6.4-8.9)
[2019-06-09 09:53] LABS: Troponin I 0.02 ng/mL (<0.03)
[2019-06-09 09:57] LABS: Magnesium < 0.5 mg/dL (1.9-2.7)
[2019-06-09] MEDS ORDERED: Magnesium Sulfate 2 GM IV* 2 GM/50 ML BAG IVPB ONE (09:57)
[2019-06-09] MEDS ORDERED: Magnesium Sulf 4 GM/100 ML IV* 4,000 MG/100 ML BAG IVPB ONE (10:35)
[2019-06-09 11:12] LABS: Alcohol < 10 mg/dL (<10)
[2019-06-09 12:00] LABS: Urine Appearance Cloudy; Urine Bilirubin Negative (Negative); Urine Blood Negative (Negative); Urine Color Yellow; Urine Glucose Negative (Negative); Urine Ketones Negative (Negative); Urine Nitrite Negative (Negative); Urine Protein Negative (Negative); Urine Specific Gravity 1.008 (1.010-1.030); Urine Urobilinogen Negative (Negative)
[2019-06-09 12:09] LABS: Urine Bacteria 1+ (Absent); Urine Red Blood Cell 1+(3-5/hpf) (Absent); Urine Squamous Epithelial Cell Present (Absent); Urine White Blood Cell Trace(0-5/hpf) (Absent)
[2019-06-09 12:15] LABS: Urine Benzodiazepine Screen None Detected (None Detect); Urine Opiates Screen None Detected (None Detect)
[2019-06-09 13:03] LABS: TSH (Thyroid Stimulating Horm) 2.16 mcIU/mL (0.34-5.60)
[2019-06-09 15:17] VITALS: BP 128/75
--- NOTE | 2019-06-09 15:42 | CONS ---
CONSULTATION REPORT: DATE OF CONSULT: 06/09/19 REQUESTING PROVIDER: CAMILO Encinas. REASON FOR CONSULT: Hypomagnesemia. HISTORY OF PRESENT ILLNESS: This is a 73-year-old female with past medical history significant for GODFREY, end-stage renal disease, and insulin-dependent diabetes, who came to the emergency room on 06/09/19 for altered mental status. According to her , she starting this morning seemed a little off. He states that he has been getting into the habit of asking her orientation questions every day and this morning she was unable to name their dogs correctly , so he knew that something was off and with his experience with her past hepatic encephalopathy, he knew to bring her to the hospital. Of note, she was most recently hospitalized from 05/13/19 through 05/15/19 for hepatic encephalopathy, hypertension, and decompensated cirrhosis. Since that admission , her normal lactulose dosage of 30 mg twice a day was up to 30 mg 3 times a day and according to her , she has been having an increased number of bowel movements anywhere from 3 to 5 movements a day which he states are formed. There have been no other GI losses. In the emergency room, labs were drawn, EKG was performed, chest x-ray was done, urine was sent. The labs revealed magnesium level of less than 0.5. At this point, hospital medicine was consulted for management of the hypomagnesia and possible admission. It was recommended to administer 4 g of IV magnesium and to recheck magnesium level after the infusion was complete. Further labs were checked, TSH, still pending hemoglobin A1c. There appeared to be no infectious etiology. No other GI losses other than the stated 3 to 5 bowel movements a day. She appears to have good glycemic control. Her TSH is within normal limits. Therefore, it was felt that her hypomagnesemia was strictly secondary to her bowel movements and therefore was recommended to replete her magnesium and to be able to discharge her home with magnesium supplementation. PAST MEDICAL HISTORY: 1. GODFREY. 2. End-stage renal disease. 3. Hypertension. 4. Insulin-dependent diabetes mellitus. 5. GERD. 6. Esophageal varices. 7. Thrombocytopenia. 8. Peptic ulcer disease. 9. Brain tumor. 10. TIA. 11. Depression. 12. Gout. 13. Anemia. 14. Arthritis. 15. Cataracts. 16. Restless legs syndrome. PAST SURGICAL HISTORY: 1. Tonsillectomy. 2. Growth removal from optic nerve. 3. Cataract extraction. HOME MEDICATIONS: 1. [place]-3 fatty acid 1000 mg p.o. daily. 2. CBD extract 100 mg p.o. daily. 3. Aspirin 81 mg p.o. daily. 4. Insulin glargine 8 units subcu daily. 5. Oxycodone 2.5 to 5 mg p.o. q.i.d. p.r.n. 6. Lactulose 30 mg p.o. t.i.d. 7. Ferrous gluconate 324 mg p.o. daily. 8. Rifaximin 550 mg p.o. b.i.d. 9. Nystatin topical powder 1 application topically b.i.d. p.r.n. 10. Allopurinol 300 mg p.o. daily. 11. Torsemide 40 mg p.o. daily. 12. Spironolactone 50 mg p.o. daily. 13. Pantoprazole 40 mg p.o. b.i.d. 14. Nadolol 20 mg p.o. daily. ALLERGIES: No known drug allergies. FAMILY HISTORY: Mother had an WA at age 73. Father had an WA at 70 and he also had diabetes. SOCIAL HISTORY: She denies any EtOH, alcohol, or recreational substance use. She is retired and . REVIEW OF SYSTEMS: A 12-point system review was performed and it was positive for loss of appetite over the past few days and confusion starting today, ongoing unintentional weight loss, 3 to 5 bowel movements per day. Otherwise, negative for fevers, chills, cough, shortness of breath, nausea, vomiting, abdominal pain, chest pain, palpitations, hematuria, visual complaints, dysphagia, arthralgias, myalgias, rashes, lesions, anxiety, or psychosis. PHYSICAL EXAMINATION: Vital Signs: 99.1 Fahrenheit, 75 pulse, 17 respirations , 98% oxygen on room air, 148/65 blood pressure. General: This is a chronically ill- appearing older woman seen resting on the stretcher in no acute distress. HEENT: Conjunctivae pink and moist. PERRLA. EOMs intact. Oropharynx clear. Mucous membranes are moist. Neck is supple. Cardiac: S1, S2 present. Heart rate irregular. Stenotic murmur heard loudest at the second intercostal to the right of the sternal border. No gallops or rubs appreciated. Respiratory: Lung sounds clear throughout bilaterally on room air. No accessory muscle use noted. Abdomen: Soft, nontender, nondistended with positive bowel sounds x4. Musculoskeletal: No clubbing or cyanosis of the digits. Skin: Generalized jaundiced appearance. No jaundice of sclerae. No other rashes or open areas appreciated. Neurologic: Sensation is intact to light touch, able to move all extremities. Psych: She is alert and oriented x4. Thought content organized. DIAGNOSTIC STUDIES/LABORATORY DATA: Chest x-ray showed no active cardiopulmonary process. Pertinent lab data: WBCs 5.3, RBCs 3.11, hemoglobin 10.6, hematocrit 31, MCV 101, MCH 34, platelet count 103. INR 1.15. Sodium 133, carbon dioxide 21, BUN 74, creatinine 2.5. BUN/creatinine ratio 26.0, glucose 202, lactic acid 1.4. Calcium 10.2, magnesium less than 0.5, initially awaiting a redraw after infusion. Bilirubin is 1.50, alkaline phosphatase is 170, ammonia 148, albumin is 2.8, globulin 4.9, albumin/globulin ratio 0.6. TSH is 2.16. Urine was positive for trace leucocyte esterase 1+ rbc's, present squamous epithelial cells, 1+ bacteria, and ascorbic acid. Urine tox screen was negative. IMPRESSION AND RECOMMENDATIONS: This is a 73-year-old female with a past medical history significant for nonalcoholic steatohepatitis, end-stage renal disease, hypertension, insulin-dependent diabetes mellitus, thrombocytopenia, who came to emergency room on 06/09/19 with altered mental status secondary to hypomagnesemia. I recommend that we recheck her magnesium level after 4 g of IV repletion and should she require additional supplementation, we can give her an additional IV dose, recheck magnesium level again and then discharge her to home. I spoke with her about this. He is comfortable with taking her back as she is no longer exhibiting any signs of confusion. I do recommend that she go home on magnesium oxide 800 mg p.o. daily and recheck magnesium levels in 1 week and follow up with her primary care physician in a week and a half. With regard to the causation of her hypomagnesemia, I feel that this is secondary to her lactulose consumption; however, her ammonia levels will increase only at twice a day lactulose dosing, so therefore, I feel that it is not prudent to scale back on her t.i.d. dosing. Also, due to her history of peptic ulcer disease, I also feel unwise to discontinue her twice a day Protonix even though that can cause hypomagnesemia as well. Therefore, this is why I feel that she requires supplementation and continued monitoring. CONDITION: Fair. DISPOSITION: To discharge home after magnesium repletion. TIME SPENT: Time spent on the patient is about 60 minutes with 30 of that spent [id number]. Thank you very much for allowing us to participate in the care of this patient. [id number]/[id number] #: [id number] [place]
== END 2019-06-09 15:16 | disposition home or self-care (01) ==
LOC: ED 08:30
DX: E83.42 Hypomagnesemia (principal); R41.82 Altered mental status, unspecified; K21.9 Gastro-esophageal reflux disease without esophagitis; E11.22 Type 2 diabetes mellitus with diabetic chronic kidney disease; I13.0 Hypertensive heart and chronic kidney disease with heart failure and stage 1 through stage 4 chronic kidney disease, or unspecified chronic kidney disease; N18.6 End stage renal disease; I50.9 Heart failure, unspecified; E78.00 Pure hypercholesterolemia, unspecified; K27.9 Peptic ulcer, site unspecified, unspecified as acute or chronic, without hemorrhage or perforation; D69.6 Thrombocytopenia, unspecified; F32.9 Major depressive disorder, single episode, unspecified; D64.9 Anemia, unspecified; Z79.899 Other long term (current) drug therapy; Z86.73 Personal history of transient ischemic attack (TIA), and cerebral infarction without residual deficits; Z79.4 Long term (current) use of insulin; Z79.82 Long term (current) use of aspirin
CPT/HCPCS: 36415; 71046; 80053; 80307; 80320; 81003; 81015; 82140; 83036; 83605; 83735; 84443; 84484; 85025; 85060; 85610; 87086; 93005; 96365; 96366; 99283; G0480; J3475

== ENCOUNTER 2019-06-10 12:22 | Observation (INO) | payer MEDICARE ==
--- OUTSIDE RECORDS SUMMARY | 2019-06-10 12:38 | XMS REPORT | Continuity of Care Document ---
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 [id number] Cream Allopurinol 1 by mouth every Unknown [...] Unknown 81mg day Tablets DR JERNIGAN Unknown [place]-3 Fish Oil take 1 tab by mouth [...] Range Note Basic Metabolic 04/29/2019 [facility] Sodium 138 mmol/L Normal 135-145 1 Panel [address] [place] [address] [phone] Potassium 3.6 mmol/L Normal 3.5-5.0 Chloride 99 mmol/L Low 101-111 Co2 Carbon Dioxide 32 mmol/L Normal 22-32 Anion Gap 7 mmol/L Normal 2-11 Glucose 193 mg/dL High 70-100 Blood Urea Nitrogen 33 mg/dL High 6-24 Creatinine 1.86 mg/dL High 0.51-0.95 BUN/Creatinine Ratio 17.7 Normal 8-20 Calcium 8.3 mg/dL Low 8.6-10.3 Egfr Non- 26.6 >60 Egfr 32.1 >60 2 Comp Metabolic 04/23/2019 [facility] Sodium 139 mmol/L Normal 135-145 Panel [address] [place] [address] [phone] Potassium 3.7 mmol/L Normal 3.5-5.0 Chloride 99 [...] >60 3 Laboratory test 04/23/2019 [facility] Ammonia 86 mcmol/L High 16-[address] [place] [address] [phone] Laboratory test 04/22/2019 [facility] Pathologist (SEE NOTE) 4, [address] [place] [address] [phone] Manual 04/22/2019 [facility] Neutrophil % 58.0 % Differential [address] [place] [address] [phone] Lymphocytes % 25.0 % Monocytes % 10.0 % Eosinophils % 6.0 % Variant Lymph % 1.0 % Normal 0-6 Hypochromasia 1+ Anisocytosis 2+ Target Cells 1+ Stomatocytes 1+ CBC Auto 04/22/2019 [facility] White Blood 5.7 10^3/uL Normal 3.5-10.[address] [place] [address] [phone] Red Blood Count 2.47 10^6/uL Low 3.70-4.87 [...] % 0.0 Laboratory test 04/22/2019 [facility] Prealbumin 5 mg/dL Low 18-38 6 finding [address] [place] [address] [phone] Basic Metabolic 04/22/2019 [facility] Sodium 139 mmol/L Normal 135-145 Panel [address] [place] [address] [phone] Potassium 4.2 mmol/L Normal 3.5-5.0 Chloride 98 mmol/L Low 101-111 Co2 Carbon Dioxide 33 mmol/L High 22-32 Anion Gap 8 mmol/L Normal 2-11 Glucose 176 mg/dL High 70-100 Blood Urea Nitrogen 42 mg/dL High 6-24 Creatinine 2.08 mg/dL High 0.51-0.95 BUN/Creatinine Ratio 20.2 High 8-20 Calcium 8.9 mg/dL Normal 8.6-10.3 Egfr Non- 23.3 >60 Egfr 28.2 >60 7 Laboratory test 04/22/2019 [facility] Ammonia TNP mcmol/L 16- 53 8, 9 finding [address] [place] [address] [phone] Comp Metabolic 04/22/2019 [facility] Sodium 137 mmol/L Normal 135-145 Panel [address] [place] [address] [phone] Potassium 3.9 mmol/L Normal 3.5-5.0 Chloride 97 [...] 10 Type & Screen 04/02/2019 [facility] Patient Blood Type A Positive [address] [place], [place] [id number] [phone] Antibody Screen NEGATIVE Laboratory test 04/02/2019 [facility] Packed Cells SEE RESULTS [address] BELO <[place] [address] NOTE> [phone] Urine Culture And 03/27/2019 [facility] Urine Culture SEE RESULT [address] [place] [address] [phone] Laboratory test 03/27/2019 [facility] Pathologist (SEE NOTE) [address] [place] [address] [phone] Cell Morphology 03/27/2019 [facility] Macrocytosis 3+ [address] [place], [place] [id number] [phone] Anisocytosis 2+ Target Cells 1+ Laboratory test 03/27/2019 [facility] Ferritin 117.2 ng/mL Normal 11-[address] [place] [address] [phone] B-Type Natriuretic Peptide BNP 839 pg/mL High <=100 Iron & Iron Binding 03/27/2019 [facility] Iron 105 g/dL Normal 50-[address] [place], [place] [id number] [phone] Unsaturated Iron Binding < 209 g/dL Total Iron Binding Capacity 224 g/dL Low 250-450 Transferrin 160 mg/dL Low 203-362 % Iron Saturation 47 % Normal 15-55 Laboratory test 03/27/2019 [facility] Hemoglobin A1c 5.1 % Normal 4.0-5.[address] (Glyco HGB) [place] [address] [phone] Albumin 2.0 g/dL Low 3.2-5.2 Urinalysis Profile 03/27/2019 [facility] Urine Color Yellow [address] [place] [address] [phone] Urine Appearance Clear Urine Specific [place] 1.012 Normal 1.010-1.030 Urine pH 5.0 Normal [...] Abnormal Absent Basic Metabolic 03/27/2019 [facility] Sodium 138 mmol/L Normal 135-[address] [place] [address] [phone] Co2 Carbon Dioxide 17 mmol/L Low 22-32 Glucose 110 mg/dL High 70-100 Blood Urea Nitrogen 52 mg/dL High 6-24 Creatinine 5.41 mg/dL High 0.51-0.95 BUN/Creatinine Ratio 9.6 Normal 8-20 Calcium 8.3 mg/dL Low 8.6-10.3 Egfr Non- 7.7 >60 Egfr 9.4 >60 16 Potassium 5.5 mmol/L High 3.5-5.0 Chloride 113 mmol/L High 101-111 Anion Gap 8 mmol/L Normal 2-11 CBC Auto 03/27/2019 [facility] White Blood 6.7 10^3/uL Normal 3.5-10.[address] [place] [address] [phone] Red Blood Count 2.17 10^6/uL Low 3.70-4.87 [...] % 0.2 Neph Routine 03/27/2019 [facility] Total Protein Random 43 mg/ dL [address] [place] [address] [phone] Creatinine Random Urine 117.28 mg/dL Laboratory 02/16/2019 [facility] Lactic Acid 5.3 Critical 0.5- 2.0 18 test finding [address] mmol/[place] [address] [phone] Influenza A & 02/16/2019 [facility] Flu AB (SEE 19, B Request [address] Disclaimer NOTE) 20 [place] [address] [phone] Influenza A Molecular NEGATIVE Negative Influenza B Molecular NEGATIVE Negative 21 1 [id number] 2 Because ethnic data is not always [...] 5 Kidney failure <15 (or dialysis) 4 [id number] 5 Macrocytic anemia. Mild thrombocytopenia. No evidence of hemolytic process. Reviewed by Mónica Snow MD 6 [id number] 7 Because ethnic data is not always [...] 5 Kidney failure <15 (or dialysis) 8 [id number] 9 Unable to report test result due [...] ISSUES PER PT 12 SEE RESULTS BELOW [id number] AP PC TRANSFUSED 04/02/19 2324 [id number] AP PC TRANSFUSED 04/03/1936 [id number] AP PC TRANSFUSED 04/04/1928 [id number] AP PC TRANSFUSED 04/04/19 0935 13 SEE RESULT BELOW Name: BONNIE AGUILERA : [address]: Marlon Beard MD Acct: [id number] Unit: [id number] AGE: 73 Location: LAB Re03/27/19 SEX: F Status: REG REF SPEC: [id number] [place]: 03/27/19-1505 [facility] DR: Marlon Beard MD REQ: [id number] RECD: 03/27/19-207 STATUS: COMP _ SOURCE: URINE SPDESC: ORDERED: Urine Culture Procedure Result Reported Site Urine Culture Final 03/28/19- 1406 ML No Growth (<1,000 CFU/mL) * ML - Main Lab . END OF REPORT DEPARTMENT OF PATHOLOGY, [address] [place] [address] Nic Weber M.D. Director [facility] # [id number] 14 Moderate macrocytic anemia with thrombocytopenia noted. Clinical correlation suggested. Additional studies is warranted. Reviewed by Dr. Weber 15 Therapeutic target for the treatment of diabetes mellitus patients is <7% HBA1C, and in selective patients <6.0%. Please refer to [place] [employer] diabetic care guidelines for further [...] 02/19/19. 18 Critical Result LACT:5.3 Called to [id number] at: 22:01:07 by:[id number] Read back by:[id number] JUSTINO Severe Sepsis and Septic Shock Management Bundle Measure requires all lactic acids initially measuring >2.0 mmol/L be repeated. Critical Result LACT:5.3 Called to [id number] at: 22:01:07 by:[id number] Read back by:[id number] [facility] Severe Sepsis and Septic Shock Management Bundle Measure requires all lactic acids initially measuring >2.0 mmol/L be repeated. 19 NASAL 20 Suboptimal collection technique may reduce sensitivity of test. Refer to the [facility] Test Catalog for collection information: [email or web address] As with all diagnostic procedures, the laboratory results obtained should be used in conjunction with other clinical information available to the physician, including confirmation by another method, as applicable. 21 Associate Store Director: [email or web address] Procedures Date Code Description Status 02/18/2019 92220 Moderate Sedation Services; Same Phys Intl 15 Mins; PT >= Completed 5 Years 02/18/2019 97535 Color Flow Doppler/Interp & Reprt Completed 02/18/2019 87144 Pulse Wave/Continuous-Interp.RPT Completed 02/18/2019 39546 Echocardiography, Transesophageal, Real Time W/Image 2D Completed W/W/O M-M 01/02/2019 31045 ECHO Transthorasic Realtime 2D W Doppler & Color Flow Hosp Completed Medical Devices Description No Information Available Encounters Type Date Location Provider Dx Diagnosis Office Visit 05/15/2019 [facility] Marito, K72.90 Hepatic failure, 2:10p Assoc,pc DO unspecified Hospitalists without coma K75.81 Nonalcoholic steatohepatitis ([place]) D64.9 Anemia, unspecified 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 I50.9 Heart failure, unspecified E11.22 Type 2 diabetes mellitus w diabetic chronic kidney disease N18.3 Chronic kidney disease, stage 3 (moderate) Office Visit 05/14/2019 2:10p [facility] Janelle K72.90 Hepatic failure, Assoc,pc Marito, DO unspecified Hospitalists without coma K75.81 Nonalcoholic steatohepatitis ([place]) I50.30 Unspecified diastolic (congestive) heart failure 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 N18.9 Chronic kidney disease, unspecified [facility], R54 Age- related physical MD debility N18.4 Chronic kidney disease, stage 4 (severe) D63.1 Anemia in chronic kidney disease K74.60 Unspecified cirrhosis of liver K29.61 Other gastritis with bleeding R18.8 Other ascites E11.22 Type 2 diabetes mellitus w diabetic chronic kidney disease Z68.43 Body mass index (BMI) 50.0-59.9, adult Office Visit 04/21/2019 [facility]30[facility] Cator, R54 Age- related physical MD debility N18.4 Chronic kidney disease, stage 4 (severe) D63.1 Anemia in chronic kidney disease K74.60 Unspecified cirrhosis of liver K29.61 Other gastritis with bleeding R18.8 Other ascites K72.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, unspecified without coma E11.22 Type 2 diabetes mellitus w diabetic chronic kidney disease Z68.43 Body mass index (BMI) 50.0-59.9, adult Office Visit 04/18/2019 10:16a [facility] Nephrology Meche An, N17.9 Acute kidney MD failure, unspecified N18.4 Chronic kidney disease, stage 4 (severe) Office Visit 04/18/2019 [facility] K72.90 Hepatic failure, 3:26p Assoctheron MD unspecified Hospitalists without coma N17.9 Acute kidney failure, unspecified I50.9 Heart failure, unspecified D64.9 Anemia, unspecified E11.9 Type 2 diabetes mellitus without complications G89.29 Other chronic pain Office Visit 04/17/2019 [facility] K72.90 Hepatic failure, 3:26p Assoctheron MD unspecified Hospitalists without coma N17.9 Acute kidney failure, unspecified D64.9 Anemia, unspecified G89.4 Chronic pain syndrome Office Visit 04/16/2019 3:25p [facility] K72.90 Hepatic failure, Assoctheron MD unspecified [...] Visit 04/15/2019 3:25p [facility] Katey John, K72.90 Hepatic failure, Asstheron méndez MD unspecified Hospitalists without coma N17.9 Acute kidney failure, unspecified D64.9 Anemia, unspecified G89.4 Chronic pain syndrome Office Visit 04/15/2019 10:15a [facility] Nephrology Meche An, N17.9 Acute kidney MD failure, unspecified Office Visit 04/14/2019 10:15a [facility] Nephrology Meche An, N17.9 Acute kidney MD failure, unspecified Office Visit 04/14/2019 3:25p [facility] K72.90 Hepatic failure, Assoctheron MD unspecified Hospitalists without coma N17.9 Acute kidney failure, unspecified D64.9 Anemia, unspecified K27.9 Peptic ulc, site unsp, unsp as ac or chr, w/o hemor or perf [facility], Assoctheron MD unspecified Hospitalists without coma N17.9 Acute kidney failure, unspecified D64.9 Anemia, unspecified K27.9 Peptic ulc, site unsp, unsp as ac or chr, w/o hemor or perf G89.4 Chronic pain syndrome Z79.4 snf (current) use of insulin E11.9 Type 2 diabetes mellitus without complications Office Visit 04/13/2019 [facility] Nephrology Mohammad A. N17.9 Acute kidney 1:52p MD Kisha failure, unspecified Office Visit 04/12/2019 [facility] K72.90 Hepatic failure, 3:24p theron Escalante MD unspecified Hospitalists without coma D64.9 Anemia, unspecified N17.9 Acute kidney failure, unspecified K27.9 Peptic ulc, site unsp, unsp as ac or chr, w/o hemor or perf G89.4 Chronic pain syndrome Office Visit 04/12/2019 [facility] Nephrology Marlon Gutierrez N17.9 Acute kidney 1:52p MD Kisha failure, unspecified Office Visit 04/11/2019 [facility] Nephrology Marlon Gutierrez N17.9 Acute kidney 1:52p MD Kisha failure, unspecified Office Visit 04/11/2019 [facility] K72.90 Hepatic failure, 3:23p theron Escalante MD unspecified Hospitalists without coma N17.9 Acute kidney failure, unspecified D64.9 Anemia, unspecified K27.9 Peptic ulc, site unsp, unsp as ac or chr, w/o hemor or perf G89.4 Chronic pain syndrome Office Visit 04/10/2019 [facility] Nephrology Marlon Gutierrez N17.9 Acute kidney 9:09a MD Kisha failure, unspecified Office Visit 04/10/2019 [facility] K72.90 Hepatic failure, 3:23p theron Escalante D.O. 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 I50.30 Unspecified diastolic (congestive) heart failure E11.9 Type 2 diabetes mellitus without complications Office Visit 04/09/2019 3:23p [facility] Dill, K72.90 Hepatic failure, Asstheron méndez MD unspecified Hospitalists without coma D64.9 Anemia, unspecified N17.9 Acute kidney failure, unspecified G89.4 Chronic pain syndrome K27.9 Peptic ulc, site unsp, unsp as ac or chr, w/o hemor or perf 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 I50.30 Unspecified diastolic (congestive) heart failure Z79.4 snf (current) use of insulin E11.22 Type 2 diabetes mellitus w diabetic chronic kidney disease N18.9 Chronic kidney disease, unspecified Office Visit 04/08/2019 [facility] Nephrology Marlon Gutierrez N17.9 Acute kidney 10:39a MD Kisha failure, unspecified Office Visit 04/08/2019 [facility] Katey Lopez MD K72.90 Hepatic failure, 3:22p [...] N18.9 Chronic kidney disease, unspecified Office Visit 04/07/2019 9:20a [facility] Nephrology Marlon Gutierrez N17.9 Acute kidney MD Kisha failure, unspecified Office Visit 04/07/2019 1:48p [facility] Diana Vega MD K72.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, unspecified without coma E72.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, unspecified K75.81 Nonalcoholic steatohepatitis ([place]) I10 Essential (primary) hypertension Office Visit 04/06/2019 1:47p [facility] Rosaline K72.90 Hepatic failure , Stocking, BLOWER FEEDER DYED RAW STOCK unspecified without coma E72.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, unspecified K75.81 Nonalcoholic steatohepatitis ([place]) I10 Essential (primary) hypertension Office Visit 04/05/2019 1:47p [facility] Rosaline K72.90 Hepatic failure , Stocking, BLOWER FEEDER DYED RAW STOCK unspecified without coma D63.8 Anemia in other chronic diseases classified elsewhere E72.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, unspecified E87.70 Fluid overload, unspecified Office Visit 04/05/2019 10:13a [facility] Nephrology Meche An, N17.9 Acute kidney failure, unspecified N18.4 Chronic kidney disease, stage 4 (severe) Office Visit 04/04/2019 2:53p [facility] Nephrology Meche An, N17.9 Acute kidney failure, unspecified N18.4 Chronic kidney disease, stage 4 (severe) E87.70 Fluid overload, unspecified D63.1 Anemia in chronic kidney disease Office Visit 04/04/2019 1:47p [facility] Lobo D64.9 Anemia, Assoc, CAMILO Ceballos unspecified Hospitalists N17.9 Acute kidney failure, unspecified K72.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, unspecified without coma K75.81 Nonalcoholic steatohepatitis ([place]) Office Visit 04/03/2019 1:46p [facility] Lobo D63.1 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, CAMILO Ceballos chronic kidney Hospitalists disease N17.9 Acute kidney failure, unspecified E11.22 Type 2 diabetes mellitus w diabetic chronic kidney disease N18.9 Chronic kidney disease, unspecified Office Visit 04/03/2019 2:35p [facility] Nephrology Marlon Gutierrez N17.9 Acute kidney MD Kisha failure, unspecified D63.1 Anemia in chronic kidney disease Office Visit 04/02/2019 3:11p [facility] Araceli D63.1 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, ELOISA Gage chronic kidney Hospitalists disease N17.9 Acute kidney failure, unspecified 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 N18.9 Chronic kidney disease, unspecified Office Visit 03/27/2019 2:00p [facility] Nephrology Marlon Gutierrez N18.4 Chronic kidney MD Kisha disease, stage 4 (severe) K74.60 Unspecified cirrhosis of liver E11.22 Type 2 diabetes mellitus w diabetic chronic kidney disease E87.70 Fluid overload, unspecified R06.02 Shortness of breath Z68.43 Body mass index (BMI) 50.0-59.9, adult Office Visit 02/21/2019 10:17a [facility] R78.81 Bacteremia Infectious Diseases Mery Bowen I89.0 Lymphedema, not elsewhere classified Office Visit 02/21/2019 [facility] Jessica Valdez, A40.8 Other 1:14p Assoc,pc [employer] WORKERS SUPERVISOR streptococcal Hospitalists sepsis K72.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, unspecified without coma R18.8 Other ascites D63.1 Anemia in chronic kidney disease N18.9 Chronic kidney disease, unspecified 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 E78.5 Hyperlipidemia, unspecified Office Visit 02/20/2019 [facility] A49.1 Streptococcal 1:13p Assoctheron MD infection, Hospitalists unspecified site D64.9 Anemia, unspecified I86.4 Gastric varices D69.6 Thrombocytopenia, unspecified E11.9 Type 2 diabetes mellitus without complications G89.4 Chronic pain syndrome Office Visit 02/20/2019 10:16a [facility] Jessica Luther R78.81 Bacteremia Infectious Diseases Mery Bowen I89.0 Lymphedema, not elsewhere classified Office Visit 02/19/2019 [facility] A49.1 Streptococcal 1:13p Assoc,theron Olivera MD infection, Hospitalists unspecified site N17.9 Acute kidney failure, unspecified D64.9 Anemia, unspecified I86.4 Gastric varices D69.6 Thrombocytopenia, unspecified E11.9 Type 2 diabetes mellitus without complications G89.4 Chronic pain syndrome Office Visit 02/18/2019 [facility] A49.1 Streptococcal 1:12p Assoc,theron Devi DO infection, Hospitalists unspecified site R65.20 Severe sepsis without septic shock D64.9 Anemia, unspecified N17.9 Acute kidney failure, unspecified D69.6 Thrombocytopenia, unspecified E11.9 Type 2 diabetes mellitus without complications G89.4 Chronic pain syndrome R53.1 Weakness Office Visit 02/17/2019 10:14a [facility] R78.81 Bacteremia Infectious Diseases Mery Bowen I89.0 Lymphedema, not elsewhere classified E11.22 Type 2 diabetes mellitus w diabetic chronic kidney disease N18.9 Chronic kidney disease, unspecified Office Visit 02/17/2019 1:12p [facility] Janelle Devi, R78.81 Bacteremia Assoc, Hospitalists DO R65.20 Severe sepsis without septic shock N17.9 Acute kidney failure, unspecified D64.9 Anemia, unspecified D69.6 Thrombocytopenia, unspecified R53.1 Weakness G89.4 Chronic pain syndrome Office Visit 02/16/2019 [facility] Emily R50.9 Fever, 1:11p Assoc,pc Cleopatra, SUR[employer] WORKERS SUPERVISOR unspecified Hospitalists R53.1 Weakness N17.9 Acute kidney failure, unspecified D64.9 Anemia, unspecified Office Visit 01/03/2019 7:00a [facility] Rizwan Flores, R47.01 Aphasia Q21.1 Atrial septal defect E78.5 Hyperlipidemia, unspecified E66.9 Obesity, unspecified Office Visit 01/03/2019 11:01a [facility] Poppy Heather, G45.9 Transient Assoc,pc [employer] SUPERVISOR cerebral ischemic Hospitalists attack, unspecified N17.9 Acute kidney failure, unspecified 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 N18.3 Chronic kidney disease, stage 3 (moderate) Office Visit 01/01/2019 7:00a [facility] Rizwan Flores, R47.01 Aphasia R41.82 Altered mental status, unspecified Office Visit 01/01/2019 [facility] Jessica Courtney, G45.9 Transient 11:01a Assoc,pc [employer] WORKERS SUPERVISOR cerebral ischemic Hospitalists attack, unspecified D69.6 Thrombocytopenia, unspecified D64.9 Anemia, unspecified R79.89 Other specified abnormal findings of blood chemistry Assessments Date Code Description Provider 05/15/2019 K72.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, unspecified without coma Janelle Devi, DO 05/15/2019 K75.81 Nonalcoholic steatohepatitis ([place]) Janelle Devi, DO 05/15/2019 D64.9 Anemia, unspecified Janelle Devi, DO 05/15/2019 I13.0 Hypertensive heart and chronic kidney Janelle Devi DO disease with heart failure and stage 1 through stage 4 chronic kidney disease, or unspecified chronic kidney disease 05/15/2019 I50.9 Heart failure, unspecified Janelle Devi, DO 05/15/2019 E11.22 Type 2 diabetes mellitus with diabetic Janelle Devi DO chronic kidney disease 05/15/2019 N18.3 Chronic kidney disease, stage 3 Janelle Senner, DO (moderate) 05/14/2019 K72.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, unspecified without [...] 05/13/2019 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 chronic kidney disease with Janlele Senner, DO stage 1 through stage 4 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.4 long term care phlebotomist (current) use of insulin Katey Lopez MD [...] K72.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, unspecified without coma Rosaline Kate , BLOWER FE[employer] DYED RAW STOCK 04/06/2019 E72.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, Rosaline Shobhaing, BLOWER FEEDER DYED RAW STOCK unspecified 04/06/2019 K75.81 Nonalcoholic steatohepatitis ([place]) Rosaline Stocking, BLOWER FEEDER DYED RAW STOCK 04/06/2019 I10 Essential (primary) hypertension Rosaline Stocking, BLOWER FEEDER DYED RAW STOCK 04/05/2019 N17.9 Acute kidney failure, unspecified Meche An MD 04/05/2019 K72.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, unspecified without coma Rosaline Stocking , BLOWER FEEDER DYED RAW STOCK 04/05/2019 N18.4 Chronic kidney disease, stage 4 (severe) Meche An MD 04/05/2019 D63.8 Anemia in other chronic diseases Rosaline Stocking, [employer] classified elsewhere 04/05/2019 E72.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, Rosaline Stocking, [employer] unspecified 04/05/2019 E87.70 Fluid overload, unspecified Rosaline Stocking, [employer] 04/04/2019 D64.9 Anemia, unspecified CAMILO Cabezas 04/04/2019 [...] N17.9 Acute kidney failure, unspecified Araceli Shortle, [employer] 04/02/2019 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 chronic kidney disease with Araceli Shortle, [employer] stage 1 through stage 4 chronic kidney disease, or unspecified chronic kidney disease 04/02/2019 N18.9 Chronic kidney disease, unspecified Araceli Shortle, [employer] 03/27/2019 N18.4 Chronic kidney disease, stage 4 [...] complications 02/18/2019 G89.4 Chronic pain syndrome Janelle Senluis, DO 02/18/2019 R53.1 Weakness Janelle Senner, DO 02/17/2019 R78.81 Bacteremia Anmol Bowen M.D. 02/17/2019 I89.0 Lymphedema, not elsewhere classified Anmol Bowen M.D. 02/17/2019 R78.81 Bacteremia Janelle aMrito, DO 02/17/2019 E11.22 Type 2 diabetes mellitus with diabetic Anmol Bowen M.D. chronic kidney disease 02/17/2019 N18.9 Chronic kidney disease, unspecified Anmol Bowen M.D. 02/17/2019 R65.20 Severe sepsis without septic shock Janelle Senner, DO 02/17/2019 N17.9 Acute kidney failure, unspecified Janelle Senner, DO 02/17/2019 D64.9 Anemia, unspecified Janelle Senner, DO 02/17/2019 D69.6 Thrombocytopenia, unspecified Janelle Senner, DO 02/17/2019 R53.1 Weakness Janelle Sanjivner, DO 02/17/2019 G89.4 Chronic pain syndrome Janelle Kincaidner, DO 02/16/2019 R50.9 Fever, unspecified Emily Stanwood, [employer] 02/16/2019 R53.1 Weakness Emily Stanwood, [employer] 02/16/2019 N17.9 Acute kidney failure, unspecified Emily Stanwood, [employer] 02/16/2019 D64.9 Anemia, unspecified Emily Cleopatra, [employer] 01/03/2019 R47.01 Aphasia Rizwan Flores MD 01/03/2019 Q21.1 Atrial septal defect Rizwan Flores MD 01/03/2019 G45.9 Transient cerebral ischemic attack, Poppy Heather, [employer] unspecified 01/03/2019 E78.5 Hyperlipidemia, unspecified Rizwan Flores MD 01/03/2019 E66.9 Obesity, unspecified Rizwan Flores MD 01/03/2019 N17.9 Acute kidney failure, unspecified Poppy Heather, [employer] 01/03/2019 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 chronic kidney disease with Poppy Heather, [employer] stage 1 through stage 4 chronic kidney disease, or unspecified chronic kidney disease 01/03/2019 N18.3 Chronic kidney disease, stage 3 Poppy Heather, [employer] (moderate) 01/02/2019 I63.9 Cerebral infarction, unspecified Femi Aguirre M.D. 01/02/2019 G45.9 Transient cerebral ischemic attack, Poppy Heather, [employer] unspecified 01/02/2019 N18.3 Chronic kidney disease, stage 3 Poppy Heather, [employer] (moderate) 01/02/2019 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 chronic kidney disease with Poppy Heather, [employer] stage 1 through stage 4 chronic kidney [...]
--- OUTSIDE RECORDS SUMMARY | 2019-06-10 12:38 | XMS REPORT | Continuity of Care Document ---
:1945 External Reference #:[id number] Author Name Rafat Senior M.D. 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 Pantoprazole Sodium 1 by mouth twice 180Tablet [...] Nystatin apply topically 90units Rafat Senior, 02/28/2019 [id number]/GM to affected M.D. Powder area(s) two times daily Allopurinol take 1 tablet by 90tabs M10.00 Rafat Senior, 06/14/2018 300mg mouth every day M.D. Tablets to prevent gout BD U/F Mini Pen Use as Directed 200units Rafat Senior, 04/30/2018 Needle [id number] Up To Four Times M.D. A Day [...] 03/03/2019 Nystatin apply to 45mg Mónica 03/19/2012 120545Yeul/GM affected area LETY DuránP Cream twice a day Lantus Solostar inject 8 units 15units Jessica C. daily ELOISA Ricks 100Unit/ML Solution Pen-Inject Aspirin 1 by mouth every Unknown 81mg Tablets DR day CBD 100mg daily Unknown Banner-3 1 by mouth every Unknown 1000mg Capsules day History Medications Cephalexin take one by 21tabs Rafat Senior, 02/21/2019 - 500mg mouth three M.D. 05/23/2019 Tablets times per day x10 days Plavix 1 by mouth every Unknown 01/03/2019 - 75mg Tablets day x30 days 02/02/2019 Immunizations CPT Code Status Date Vaccine Lot # [id number] Given 04/12/2012 Tdap Tetanus, W Pertussis [id number] Vital Signs Date Vital Result Comment 03/03/2019 [...] Date Facility Test Result H/L Range Note Urine Drug 06/09/2019 [facility] [place] Amphetamine None Detected None Detect SCR ED & Screen Pain Clinic Urine Barbiturates Screen None Detected None Detect Urine Benzodiazepine Screen None Detected None Detect Urine Cannabinoids Screen None Detected None Detect Urine Cocaine Screen None Detected None Detect Urine Opiates Screen None Detected None Detect Urine Phencyclidine Screen None Detected None Detect 1 Inr/Protime 06/09/2019 [facility] [place] Inr 1.15 High 0.82-1.09 2 CBC Auto Diff 06/09/2019 [facility] [place] White Blood Count 5.3 10^3/uL Normal 3.5- 10.8 Red Blood Count 3.11 10^6/uL Low 3.70-4.87 Hemoglobin 10.6 g/dL Low 12.0-16.0 Hematocrit 31 % Low 35-47 Mean Corpuscular Volume 101 fL High 80-97 Mean Corpuscular Hemoglobin 34 pg High 27-31 Mean Corpuscular HGB Conc 34 g/dL Normal 31-36 Red Cell Distribution Width 17 % High 10-15 Platelet Count 103 10^3/uL Low 150-450 Mean Platelet Volume 9.9 fL Normal 7.4-10.4 Abs Neutrophils 2.9 10^3/uL Normal 1.5-7.7 Abs Lymphocytes 1.8 10^3/uL Normal 1.0-4.8 Abs Monocytes 0.4 10^3/uL Normal 0-0.8 Abs Eosinophils 0.1 10^3/uL Normal 0-0.6 Abs Basophils 0.1 10^3/uL Normal 0-0.2 Abs Nucleated RBC 0.0 10^3/uL Granulocyte % 53.6 % Lymphocyte % 34.6 % Monocyte % 7.4 % Eosinophil % 2.7 % Basophil % 1.7 % Nucleated Red Blood Cells % 0.0 Laboratory test finding 06/09/2019 [facility] [place] Ammonia 148 mcmol/L High 16-53 Lactic Acid 1.4 mmol/L Normal 0.5-2.0 3 Comp Metabolic Panel 06/09/2019 [facility] [place] Sodium 133 mmol/L Low 135-145 Potassium 4.6 mmol/L Normal 3.5-5.0 Chloride 104 mmol/L Normal 101-111 Co2 Carbon Dioxide 21 mmol/L Low 22-32 Anion Gap 8 mmol/L Normal 2-11 Glucose 202 mg/dL High 70-100 Blood Urea Nitrogen 74 mg/dL High 6-24 Creatinine 2.85 mg/dL High 0.51-0.95 BUN/Creatinine Ratio 26.0 High 8-20 Calcium 10.2 mg/dL Normal 8.6-10.3 Total Protein 7.7 g/dL Normal 6.4-8.9 Albumin 2.8 g/dL Low 3.2-5.2 Globulin 4.9 g/dL High 2-4 Albumin/Globulin Ratio 0.6 Low 1-3 Total Bilirubin 1.50 mg/dL High 0.2-1.0 Alkaline Phosphatase 170 U/L High 34-104 Alt 18 U/L Normal 7-52 Ast 37 U/L Normal 13-39 Egfr Non- 16.2 >60 Egfr 19.6 >60 4 Laboratory test finding 06/09/2019 [facility] [place] Troponin-I (TnI) 0.02 ng/mL < 0.03 5 Magnesium < 0.5 mg/dL Critical low 1.9-2.7 6 Manual Differential 06/09/2019 [facility] [place] Neutrophil % 52.0 % Lymphocytes % 38.0 % Monocytes % 6.0 % Eosinophils % 3.0 % Basophil % 1.0 % RBC Morphology Normal Normal Laboratory test finding 06/09/2019 [facility] [place] Alcohol < 10 mg/dL Normal <10 Urinalysis Profile 06/09/2019 [facility] [place] Urine Color Yellow Urine Appearance Cloudy Urine Specific [place] 1.008 Low 1.010-1.030 Urine pH 6.0 Normal 5-9 Urine Urobilinogen Negative Negative Urine Ketones Negative Negative Urine Protein Negative Negative Urine Leukocytes Trace Abnormal Negative Urine Blood Negative Negative * * Abnormal Negative 7 Urine Nitrite Negative Negative Urine Bilirubin Negative Negative Urine Glucose Negative Negative Urine White Blood Cell Trace(0-5/hpf) Absent Urine Red Blood Cell 1+(3-5/hpf) Abnormal Absent Urine Bacteria 1+ Abnormal Absent Urine Squamous Epithelial Cell Present Abnormal Absent Laboratory test 06/09/2019 [facility] [place] TSH (Thyroid Stim 2.16 mcIU/mL Normal 0.34 -5.60 finding Horm) CBC Auto Diff 05/28/2019 [facility] [place] White Blood Count 4.8 10^3/uL Normal 3.5- 10.8 Red Blood Count 2.78 10^6/uL Low 3.70-4.87 Hemoglobin 9.7 g/dL Low 12.0-16.0 Hematocrit 28 % Low 35-47 Mean Corpuscular Volume 102 fL High 80-97 Mean Corpuscular Hemoglobin 35 pg High 27-31 Mean Corpuscular HGB Conc 34 g/dL Normal 31-36 Red Cell Distribution Width 18 % High 10-15 Platelet Count 104 10^3/uL Low 150-450 Mean Platelet Volume 10.4 fL Normal 7.4-10.4 Abs Neutrophils 2.5 10^3/uL Normal 1.5-7.7 Abs Lymphocytes 1.7 10^3/uL Normal 1.0-4.8 Abs Monocytes 0.3 10^3/uL Normal 0-0.8 Abs Eosinophils 0.3 10^3/uL Normal 0-0.6 Abs Basophils 0.1 10^3/uL Normal 0-0.2 Abs Nucleated RBC 0.0 10^3/uL Granulocyte % 52.0 % Lymphocyte % 34.6 % Monocyte % 5.8 % Eosinophil % 5.9 % Basophil % 1.7 % Nucleated Red Blood Cells % 0.0 Comp Metabolic Panel 05/28/2019 [facility] [place] Sodium 131 mmol/L Low 135-145 Chloride 104 mmol/L Normal 101-111 Co2 Carbon Dioxide 21 mmol/L Low 22-32 Glucose 301 mg/dL High 70-100 Blood Urea Nitrogen 72 mg/dL High 6-24 Creatinine 2.90 mg/dL High 0.51-0.95 BUN/Creatinine Ratio 24.8 High 8-20 Calcium 9.1 mg/dL Normal 8.6-10.3 Total Protein 6.9 g/dL Normal 6.4-8.9 Albumin 2.4 g/dL Low 3.2-5.2 Globulin 4.5 g/dL High 2-4 Albumin/Globulin Ratio 0.5 Low 1-3 Total Bilirubin 1.40 mg/dL High 0.2-1.0 Alkaline Phosphatase 202 U/L High 34-104 Alt 30 U/L Normal 7-52 Ast 49 U/L High 13-39 Egfr Non- 15.9 >60 Egfr 19.2 >60 8 Potassium 5.1 mmol/L High 3.5-5.0 Anion Gap 6 mmol/L Normal 2-11 Laboratory test finding 05/28/2019 [facility] [place] Ammonia 240 mcmol/L High 16-53 Laboratory test finding 05/13/2019 [facility] [place] Pathologist Review (SEE NOTE) 9 Manual Differential 05/13/2019 [facility] [place] Neutrophil % 54.0 % Lymphocytes % 30.0 % Monocytes % 5.0 % Eosinophils % 8.0 % Basophil % 3.0 % Anisocytosis 2+ CBC Auto Diff 05/13/2019 [facility] [place] White Blood Count 6.0 10^3/uL Normal 3.5- [...] Red Blood Cells % 0.0 Laboratory test finding 05/13/2019 [facility] [place] Troponin-I (TnI) 0.02 ng/mL < 0.03 10 Alcohol 11 mg/dL High <10 TSH (Thyroid Stim Horm) 2.32 mcIU/mL Normal 0.34-5.60 Comp Metabolic Panel 05/13/2019 [facility] [place] Sodium 134 mmol/L Low 135-145 Potassium 3.5 mmol/L Normal 3.5-5.0 Chloride 102 [...] Egfr Non- 23.7 >60 Egfr 28.7 >60 11 Laboratory test 05/13/2019 [facility] [place] Lactic Acid 1.0 mmol/L Normal 0.5-2.0 12 finding Laboratory test 05/13/2019 [facility] Ammonia 261 mcmol/L High 16-53 finding Basic Metabolic 05/06/2019 [facility]) Sodium 141 mEq/L 134-149 Profile Potassium 4.3 mEq/L 3.6-5.5 Chloride 99 mEq/L 94-112 Carbon Dioxide 29 mEq/L 21-32 Glucose 233 mg/dL High 70-105 13 BUN 34 mg/dL High 6-26 14 Creatinine 1.8 mg/dL High 0.6-1.4 15 BUN/Creat Ratio 18.9 CALC 8.0-36.0 Calcium 10.1 mg/dL 8.9-10.6 GFR Non- 29 ml/min/1.73m^ Low >=60 GFR 35 ml/min/1.73m^ Low >=60 Laboratory test 04/02/2019 [facility] [place] Packed Cells SEE RESULTS BELO 16, 17 finding <SEE NOTE> Type & Screen 04/02/2019 [facility] [place] Patient Blood Type A Positive Antibody Screen NEGATIVE Type & Screen 04/02/2019 [facility] [place] Patient Blood Type A Positive Antibody Screen NEGATIVE Laboratory test finding 04/02/2019 [facility] Ferritin 120.7 ng/mL Normal 11- 307 Folic Acid (Folate) 8.04 ng/mL >3.99 Vitamin B12 > 1450 pg/mL High 180-914 18 Iron & Iron Binding Capacity 04/02/2019 [facility] [place] Iron 66 g/dL Normal 50-212 Unsaturated Iron Binding < 219 g/dL Total Iron Binding Capacity 234 g/dL Low 250-450 Transferrin 167 mg/dL Low 203-362 % Iron Saturation 28 % Normal 15-55 Laboratory test finding 04/02/2019 [facility] [place] Pathologist Review (SEE NOTE) 19 Manual Differential 04/02/2019 [facility] Neutrophil % 56.0 % Lymphocytes % 24.0 % Monocytes % 9.0 % Eosinophils % 10.0 % Basophil % 1.0 % Hypochromasia 1+ Polychromasia 1+ Laboratory test finding 04/02/2019 [facility] [place] Magnesium 2.4 mg/dL Normal 1.9- 2.7 Basic Metabolic Panel 04/02/2019 [facility] [place] Sodium 137 mmol/L Normal 135-145 Potassium 4.3 mmol/L Normal 3.5-5.0 Co2 Carbon Dioxide 17 mmol/L Low 22-32 Glucose 80 mg/dL Normal 70-100 Blood Urea Nitrogen 57 mg/dL High 6-24 Creatinine 4.87 mg/dL High 0.51-0.95 BUN/Creatinine Ratio 11.7 Normal 8-20 Calcium 8.5 mg/dL Low 8.6-10.3 Egfr Non- 8.7 >60 Egfr 10.6 >60 20 Chloride 113 mmol/L High 101-111 Anion Gap 7 mmol/L Normal 2-11 CBC Auto Diff 04/02/2019 [facility] [place] White Blood Count 7.4 10^3/uL Normal 3.5- 10.8 Red Blood Count 2.05 10^6/uL Low 3.70-4.87 Hemoglobin 6.8 g/dL Low 12.0-16.0 Hematocrit 21 % Low 35-47 Mean Corpuscular Volume 103 fL High 80-97 Mean Corpuscular Hemoglobin 33 pg High 27-31 Mean Corpuscular HGB Conc 32 g/dL Normal 31-36 Red Cell Distribution Width 23 % High 10-15 21 Platelet Count 105 10^3/uL Low 150-450 Mean [...] Blood Cells % 0.3 Laboratory test 04/02/2019 [facility] [place] Ammonia 94 mcmol/L High 16-53 finding Inr/Protime 04/02/2019 [facility] [place] Inr 1.26 High 0.82-1.09 22 Stool Occult Blood, 04/02/2019 [facility] [place] Stool Occult Blood, SEE RESULT 23 Screen Screen BELOW Laboratory test 02/16/2019 [facility] [place] Pathologist Review (SEE NOTE) 24 finding Manual Differential 02/16/2019 [facility] [place] Immature 24.0 % High 0-9 Granulocytes Neutrophil % 71.0 % Band % 24.0 % High 0-8 Lymphocytes % 3.0 % Monocytes % 2.0 % Toxic Granulation 1+ Anisocytosis 2+ Laboratory test finding 02/16/2019 [facility] [place] Magnesium 2.0 mg/dL Normal 1.9- 2.7 TSH (Thyroid Stim Horm) 2.32 mcIU/mL Normal 0.34-5.60 CBC Auto Diff 02/16/2019 [facility] [place] White Blood Count 17.1 10^3/uL High 3.5- [...] Cells % 0.1 Comp Metabolic Panel 02/16/2019 [facility] [place] Sodium 135 mmol/L Normal 135-145 Potassium 3.6 [...] Egfr Non- 16.8 >60 Egfr 20.4 >60 25 Laboratory test 02/16/2019 [facility] [place] Ammonia 52 mcmol/L Normal 16-53 finding Urine Culture And 02/16/2019 [facility] [place] Urine Culture SEE RESULT 26 Sensitivities BELOW Laboratory test 02/16/2019 [facility] [place] Lactic Acid 4.6 mmol/L Critical high 0.5- 2.0 27 finding Blood Culture SEE RESULT BELOW 28 Urinalysis Profile 02/16/2019 [facility] [place] Urine Color Yellow Urine Appearance Cloudy Urine Specific [place] 1.012 Normal 1.010-1.030 Urine pH 5.0 Normal [...] Casts Present Abnormal Absent Laboratory test 02/16/2019 [facility] [place] B-Type Natriuretic > 1300 pg/mL High <= 100 finding Peptide BNP Influenza A & B 02/16/2019 [facility] [place] Flu AB Disclaimer (SEE NOTE) 29, 30 Request Influenza A Molecular NEGATIVE Negative Influenza B Molecular NEGATIVE Negative 31 Laboratory test 02/16/2019 [facility] [place] Lactic 5.3 mmol/L Critical 0.5-2.0 32 finding Acid high Comprehensive 01/14/2019 [facility]) Sodium 140 mEq/L 134-149 Metabolic Prof Potassium [...] Low 3.93-6.00 HGB 8.3 g/dL Low 12.0-17.0 33 HCT 26 % Low 35-50 34 MCV 101.2 fL High 80.0-95.0 MCH 32.5 pg High 25.6-32.2 MCHC 32.2 g/dL 32.2-36.0 RDW-CV 16.0 % High 11.6-14.4 PLT 140 x10^3/UL Low 163-400 MPV 11.3 fL 9.4-12.4 Fariba# 4.42 x10^3/UL 1.56-6.13 Lymph# 1.92 x10^3/UL 1.18-3.74 Williamson# 0.83 x10^3/UL High 0.24-0.82 Eos # 0.4 x10^3/UL 0.0-0.5 Baso # 0.06 x10^3/UL 0.01-0.08 Fariba% 57.8 % 34.0-70.0 Lymph % 25.1 % 20.0-52.0 Williamson% 10.8 % 5.0-12.0 Eos% 5.4 % 0.7-7.0 Baso% 0.8 % 0.1-1.2 Laboratory test 01/14/2019 [facility] Ammonia, 111 g/dL High 19-87 35 finding [address] [place] [address] (599)- - Laboratory test 01/01/2019 [facility] [place] Potassium 3.9 mmol/L Normal 3.5-5.0 finding Redraw Magnesium 2.1 mg/dL Normal 1.9-2.7 Direct Bilirubin Redraw 0.20 mg/dL High 0.03-0.18 Ast Redraw 36 U/L Normal 13-39 Iron & Iron Binding Capacity 01/01/2019 [facility] Iron 75 g/dL Normal 50-212 Unsaturated Iron Binding < 213 g/dL Total Iron Binding Capacity 228 g/dL Low 250-450 Transferrin 163 mg/dL Low 203-362 % Iron Saturation 33 % Normal 15-55 Laboratory test finding 01/01/2019 [facility] [place] Ferritin 117.2 ng/mL Normal 11- 307 Folic Acid (Folate) 11.95 ng/mL >3.99 Vitamin B12 892 pg/mL Normal 180-914 36 1 The urine specimen was tested at the listed cutoffs: Drug class test level (ng/mL) Amphetamines 500 Barbiturates 200 Benzodiazepine metabolites 200 Cocaine metabolites 150 Cannabinoids 50 Opiates 300 Pcp 25 Specimen was received without chain of custody. Results should be used for medical purposes only. 2 Standard intensity warfarin therapeutic range: 2.0-3.0 High intensity warfarin therapeutic range: 2.5-3.5 3 [facility] Severe Sepsis and Septic Shock Management Bundle Measure requires all lactic acids initially measuring >2.0 mmol/L be repeated. 4 Because ethnic data is not always readily [...] 15-29 5 Kidney failure <15 (or dialysis) 5 Troponin-I testing on Plasma Separator Tubes (PST) has a known false positive rate of 0.20-0.40%. All positive troponins reflex immediately to secondary confirmatory testing. Using the [employer] DxI 800 Access Immunoassay systems, the 99th percentile upper reference limit was demonstrated to be < 0.03 ng/mL. 6 Critical Result MG:<0.5 Called to [id number] at: 09:55:12 by:[id number] Read back by:[id number] *Ascorbic acid is present which may interfere with detection of blood. 8 Because ethnic data is not always readily [...] 15-29 5 Kidney failure <15 (or dialysis) 9 Macrocytic anemia. Mild thrombocytopenia. No evidence of a hemolytic process. Reviewed by Mónica Snow MD 10 Troponin-I testing on Plasma Separator Tubes (PST) has a known false positive rate of 0.20-0.40%. All positive troponins reflex immediately to secondary confirmatory testing. Using the [employer] 800 Access Immunoassay systems, the 99th percentile upper reference limit was demonstrated to be < 0.03 ng/mL. 11 Because ethnic data is not always readily [...] 15-29 5 Kidney failure <15 (or dialysis) 12 [facility] Severe Sepsis and Septic Shock Management Bundle Measure requires all lactic acids initially measuring >2.0 mmol/L be repeated. 13 NON-FASTING 14 consistent w/ previous results 15 consistent w/ previous results 16 KIDNEY ISSUES PER PT 17 SEE RESULTS BELOW [id number] AP PC TRANSFUSED 04/02/19 2324 [id number] AP PC TRANSFUSED 04/03/19 0936 [id number] AP PC TRANSFUSED 04/04/19 0628 [id number] AP PC TRANSFUSED 04/04/19 0935 18 Normal Range 180 to 914 Indeterminate Range 145 to 180 Deficient Range <145 19 Macrocytic anemia. Mild thrombocytopenia. No evidence of a hemolytic process. Reviewed by Mónica Snow MD 20 Because ethnic data is not always readily [...] 15-29 5 Kidney failure <15 (or dialysis) 21 Consistent with Previous Results Reported on 03/27/19 22 Standard intensity warfarin therapeutic range: 2.0-3.0 High intensity warfarin therapeutic range: 2.5-3.5 23 SEE RESULT BELOW Name: BONNIE AGUILERA : [address]: Holden Gramajo Acct: [id number] Unit: [id number] AGE: 73 Location: ED Re04/02/19 SEX: F Status: REG ER SPEC: [id number] [place]: 04/02/19-[address]: Holden Betancourt DO REQ: [id number] RECD: 04/02/19-1722 STATUS: COMP OTHR DR: DO Rafat Roche MD _ SOURCE: STOOL SPDESC: ORDERED: Occult Bl, Scn Procedure Result Reported Site Stool Occult Blood (1) Final 04/02/19- 1729 ML Stool Occult Blood Positive Collection Date (1) 04/01/19 * ML - Main Lab . END OF REPORT DEPARTMENT OF PATHOLOGY, [address] [place] [address] Nic Weber M.D. Director [facility] # [id number] 24 Leukocytosis with absolute neutrophilia indicative of acute inflammatory/reactive process. Moderate to severe normocytic anemia with thrombocytopenia noted. Additional studies as clinically warranted. Reviewed by Dr. Weber 25 Because ethnic data is not always readily [...] 15-29 5 Kidney failure <15 (or dialysis) 26 SEE RESULT BELOW Name: SUDARSHAN GASTONBONNIE : [address]: Janelle Devi DO Acct: [id number] Unit: [id number] AGE: 73 Location: [place] [address] Re02/17/19 SEX: F Status: ADM IN SPEC: [id number] CORINA: 02/16/[address]: Holden Betancourt DO REQ: [id number] RECD: 02/16/19 STATUS: NILA MARK DR: Rafat Senior MD _ SOURCE: URINE SPDESC: ORDERED: Urine Culture Procedure Result Reported Site Urine Culture Final 02/18/19- 0915 ML No Growth (<1,000 CFU/mL) * ML - Main Lab . END OF REPORT DEPARTMENT OF PATHOLOGY, [address] [place] [address] Nic Weber M.D. Director [facility] # [id number] 27 Specimen hemolyzed. Result may not be valid. Critical Result LACT:4.6 Called to [id number] at: 21:05:59 by:[id number] Read back by:[id number] [facility] Severe Sepsis and Septic Shock Management Bundle Measure requires all lactic acids initially measuring >2.0 mmol/L be repeated. 28 SEE RESULT BELOW Name: BONNIE AGUILERA : [address]: Janelle Devi DO Acct: [id number] Unit: [id number] AGE: 73 Location: [place] [address] Re02/17/19 SEX: F Status: ADM IN SPEC: [id number] CORINA: 02/16/[address]: Holden Betancourt DO REQ: [id number] RECD: 02/16/19 STATUS: NILA MARK DR: Rafat Senior MD _ SOURCE: BLOOD,VENO SPDESC: ORDERED: Blood Cult COMMENTS: Verbal to [id number] by [id number] at 0706 on 02/17/19. Results read back [...] CONTINUED ON NEXT PAGE DEPARTMENT OF PATHOLOGY, [address] [place] [address] Nic Weber M.D. Director [facility] # [id number] Specimen: [id number] Collected: 02/16/19 Received: 02/16/19 (Continued) Procedure Result Reported Site Anaerobic Culture Bottle Final (continued) 02/18/19905 Please refer to UN2005 culture AEROBIC bottle for sensitivity testing. * ML - Main Lab . END OF REPORT DEPARTMENT OF PATHOLOGY, [address] [place] [address] Nic Weber M.D. Director [facility] # [id number] 29 NASAL 30 Suboptimal collection technique may reduce sensitivity of test. Refer to the [facility] Test Catalog for collection information: [email or web address] As with all diagnostic procedures, the laboratory results obtained should be used in conjunction with other clinical information available to the physician, including confirmation by another method, as applicable. 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 Critical Result LACT:5.3 Called to [id number] at: 22:01:07 by:[id number] Read back by:[id number] [facility] Severe Sepsis and Septic Shock Management Bundle Measure requires all lactic acids initially measuring >2.0 mmol/L be repeated. 33 RESULTS VERIFIED BY REPEAT ANALYSIS 34 RESULTS VERIFIED BY REPEAT ANALYSIS 35 Frozen Plasma Pour Off Fro m Lav Top EDTA Tube 36 Normal Range 180 to 914 Indeterminate Range 145 to 180 Deficient Range <145 Procedures Date Code Description Status 11/07/2016 354632520 Diabetic Retinal Eye Exam Completed 10/10/2014 [id number] Colonoscopy Completed 06/26/2004 88808739 Mammogram Completed Medical Devices Description No Information Available Encounters Type Date Location Provider Dx Diagnosis Office Visit 06/10/2019 Main Office Rafat Senior, R41.0 Disorientation, 9:00a M.D. unspecified E11.9 Type 2 diabetes mellitus without complications K74.69 Other cirrhosis of liver I10 Essential (primary) hypertension G93.40 Encephalopathy, unspecified Office Visit 05/23/2019 11:00a Main Office Rafat Senior, E11.9 Type 2 diabetes M.D. mellitus without complications K74.69 Other cirrhosis [...] resid deficits Assessments Date Code Description Provider 06/10/2019 R41.0 Disorientation, unspecified Rafat Senior M.D. 06/10/2019 E11.9 Type 2 diabetes mellitus without complications Rafat Senior M.D. 06/10/2019 K74.69 Other cirrhosis of liver Rafat Senior M.D. 06/10/2019 I10 Essential (primary) hypertension Rafat Senior M.D. 06/10/2019 G93.40 Encephalopathy, unspecified Rafat Senior M.D. 05/23/2019 E11.9 Type 2 diabetes mellitus without complications Rafat Senior M.D. 05/23/2019 K74.69 Other cirrhosis of liver Rafat Senior M.D. 05/23/2019 R60.0 Localized edema Rafat Senior M.D. 05/23/2019 K21.9 Gastro-esophageal reflux disease without Rafat Senior M.D. esophagitis 05/23/2019 I10 Essential (primary) hypertension Rafat Senior M.D. 05/23/2019 G93.40 Encephalopathy, unspecified Rafat Senior M.D. 05/06/2019 E11.9 Type 2 diabetes mellitus [...] site Rafat Senior M.D. 01/14/2019 Z86.73 H/O: TIA Rafat Senior M.D. Plan of Treatment 06/10/2019 - Rafat Senior M.D.R41.0 Disorientation, urbjdhlkktsI29.9 Type 2 diabetes mellitus without complicationsNew Labs:Basic Metabolic-ALL Lab Co's, Ordered: 06/10/19Comments:The patient was reminded to have regular Opthalmology exams , and check on blood pressure periodically. continue lantus 10 units and check blood sugarFollow up:Follow up with doctor in 3 months.K74.69 Other cirrhosis of liverComments:continue melqzuercL52 Essential (primary) nekbyiaejtdlH25.40 Encephalopathy, unspecifiedNew Labs:CBC Electronic-ALL Lab [facility]ani, Ordered: 06/10/19Ammonia ([facility]), Ordered: 06/10/19Magnesium (Fma/[facility]), Ordered: 06/10/19Comments:obtain labs at home today. If unavailable today consider going back to the emergency room for evaluation Functional Status Description No Information Available Mental Status Description No Information Available Referrals Refer to Reason for Referral Status Appt Date Ioana Puckett MD Mha Priority. Consult and treat chronic Scheduled kidney failure w/ fluid retention. LT [address] [facility] [address] [facility] [address] [phone]
--- NOTE | 2019-06-10 13:09 | ED ---
Altered Mental Status - HPI Summary HPI Summary: This patient is a 73 y/o female presenting to [facility] c/o confusion today. Patient was seen here in the emergency department yesterday for the same and was found to have severe low magnesium. Patient was repleted with 4g of IV magnesium and her confusion improved. After patient was evaluated by the hospitalist the patient was discharged home with magnesium supplements. states when patient becomes confused her ammonia levels are usually elevated. called today to report the patient became confused again and gave the patient 2 doses of 400 mg magnesium with no improvement. Patient is unable to state why she is in the emergency department. She is unable to state today's date. Patient denies any pain, shortness of breath, or headache. PMHx includes GODFREY, ESRD not on dialysis, hepatic encephalopathy. HPI IS LIMITED DUE TO LEVEL 5 CAVEAT - confusion Home Medications Medication Instructions Recorded Confirmed Type Ferrous Gluconate TAB* [Fergon 324 mg PO DAILY #30 tab 02/21/19 06/10/19 Rx TAB*] [place]-3 Fatty Acids (Nf) [Fish Oil 1,000 mg PO DAILY 04/02/19 06/10/19 History (NF)] Nadolol TAB* [Corgard TAB*] 20 mg PO DAILY tab 04/18/19 06/10/19 Rx Pantoprazole TAB * [Protonix TAB*] 40 mg PO BID tab 04/18/19 06/10/19 Rx Spironolactone TAB* [Aldactone TAB 50 mg PO DAILY tab 04/18/19 06/10/19 Rx 25 MG*] Torsemide TAB* [Demadex 20 MG*] 40 mg PO DAILY tab 04/18/19 06/10/19 Rx Nystatin TOP POWDER* 1 applic TOPICAL BID PRN 05/13/19 06/10/19 History RiFAXimin* [Xifaxan*] 550 mg PO BID #60 tab 05/15/19 06/10/19 Rx Allopurinol TAB* [Zyloprim 100 MG 300 mg PO DAILY 06/09/19 06/10/19 History TAB*] Aspirin EC TAB* [Ecotrin EC Low 81 mg PO DAILY 06/09/19 06/10/19 History Dose 81 MG*] Cannabidiol (CBD) Extract (NF) 100 mg PO DAILY 06/09/19 06/10/19 History [Epidiolex (NF)] Insulin Glargine,Hum.rec.anlog 8 units SUBCUT DAILY 06/09/19 06/10/19 History [Lantus Solostar 100 units/ml 3 ml x 5 PENS] Lactulose* 30 ml PO .BID-TID MDD 90ml 06/09/19 06/10/19 History oxyCODONE TAB* [Roxycodone TAB 5 2.5 - 5 mg PO QID PRN 06/09/19 06/10/19 History mg*] - History Of Current Complaint Chief Complaint: EDAltMentalStatus Stated Complaint: ALTERED MENTAL STATE PER PT Time Seen by Provider: 06/10/19 13:02 Hx Obtained From: Patient, Family/Chemical Checker - , Medical Records - EMR Hx From Patient Unobtainable Due To: Other - LEVEL 5 CAVEAT - confusion Onset/Duration: Still Present Timing: Lasting Hours Severity Currently: Moderate Character: Confusion Aggravating Factor(s): Unknown Alleviating Factor(s): Unknown Associated Signs And Symptoms: Negative: Fever, Headache Related History: Other: - patient was seen in the ED yesterday 06/09/19 for the same - Allergies/Home Medications Allergies/Adverse Reactions: Allergies Allergy/AdvReac Type Severity Reaction Status Date / Time No Known Allergies Allergy Verified 06/09/19 08:43 Home Medications: Home Medications Ferrous Gluconate TAB* [Fergon TAB*] 324 mg PO DAILY #30 tab 02/21/19 [Rx Confirmed 06/10/19] [place]-3 Fatty Acids (Nf) [Fish Oil (NF)] 1,000 mg PO DAILY 04/02/19 [History Confirmed 06/10/19] Nadolol TAB* [Corgard TAB*] 20 mg PO DAILY tab 04/18/19 [Rx Confirmed 06/10/19] Pantoprazole TAB * [Protonix TAB*] 40 mg PO BID tab 04/18/19 [Rx Confirmed ] Spironolactone TAB* [Aldactone TAB 25 MG*] 50 mg PO DAILY tab 04/18/19 [Rx Confirmed 06/10/19] Torsemide TAB* [Demadex 20 MG*] 40 mg PO DAILY tab 04/18/19 [Rx Confirmed 06/09] Nystatin TOP POWDER* 1 applic TOPICAL BID PRN 05/13/19 [History Confirmed ] RiFAXimin* [Xifaxan*] 550 mg PO BID #60 tab 05/15/19 [Rx Confirmed 06/10/19] Allopurinol TAB* [Zyloprim 100 MG TAB*] 300 mg PO DAILY 06/09/19 [History Confirmed 06/10/19] Aspirin EC TAB* [Ecotrin EC Low Dose 81 MG*] 81 mg PO DAILY 06/09/19 [History Confirmed 06/10/19] Cannabidiol (CBD) Extract (NF) [Epidiolex (NF)] 100 mg PO DAILY 06/09/19 [ History Confirmed 06/10/19] Insulin Glargine,Hum.rec.anlog [Lantus Solostar 100 units/ml 3 ml x 5 PENS] 8 units SUBCUT DAILY 06/09/19 [History Confirmed 06/10/19] Lactulose* 30 ml PO .BID-TID MDD 90ml 06/09/19 [History Confirmed 06/10/19] oxyCODONE TAB* [Roxycodone TAB 5 mg*] 2.5 - 5 mg PO QID PRN 06/09/19 [History Confirmed 06/10/19] PMH/Surg Hx/FS Hx/Imm Hx Endocrine/Hematology History: Reports: Hx Blood Transfusions, Hx Diabetes, Hx Anemia Cardiovascular History: Reports: Hx Congenital Heart Disease - Patent foramen ovale, Hx Congestive Heart Failure, Hx Coronary Artery Disease, Hx Hypercholesterolemia, Hx Hypertension, Other Cardiovascular Problems/Disorders - Lymphedema on abdomen Denies: Hx Angina, Hx Myocardial Infarction, Hx Pacemaker/ICD Respiratory History: Denies: Hx Asthma, Hx Chronic Obstructive Pulmonary Disease (COPD) GI History: Reports: Hx Gastroesophageal Reflux Disease, Hx Gastrointestinal Bleed - Gastric antral vascular ecstasia, Hx Ulcer - Peptic ulcer disease, Other GI Disorders - non alcoholic cirrhosis, ascites, esophageal varices History: Reports: Hx Acute Renal Failure, Hx Chronic Renal Failure - Chronic renal fx r/t naproxen Denies: Hx Dialysis Musculoskeletal History: Reports: Hx Arthritis - knees, Hx Back Problems, Hx Gout, Hx Osteoporosis Sensory History: Reports: Hx Cataracts, Hx Contacts or Glasses, Hx Vision Problem, Hx Hearing Problem Denies: Hx Eye Injury, Hx Eye Prosthesis, Hx Glaucoma, Hx Legally Blind, Hx Macular Degeneration, Hx Deafness, Hx Hearing Aid, Other Sensory Impairments Opthamlomology History: Reports: Hx Cataracts, Hx Contacts or Glasses, Hx Vision Problem Denies: Hx Eye Injury, Hx Eye Prosthesis, Hx Glaucoma, Hx Legally Blind, Hx Macular Degeneration, Other Sensory Impairments Neurological History: Reports: Hx Transient Ischemic Attacks (TIA), Other Neuro Impairments/Disorders - Restless Leg Syndrome Denies: Hx Dementia, Hx Seizures Psychiatric History: Denies: Hx Panic Disorder - Cancer History Cancer Type, Location and Year: BRAIN TUMOR S/P 30 YRS Hx Chemotherapy: No Hx Radiation Therapy: No - Surgical History Surgical History: Yes Surgery Procedure, Year, and Place: Tonsillectomy, cataracts Infectious Disease History: No Infectious Disease History: Denies: Hx Hepatitis, Hx of Known/Suspected MRSA, Hx Shingles, Hx Tuberculosis, Hx Known/Suspected VRE, Hx Known/Suspected VRSA, Traveled Outside the [place] in Last 30 Days - Family History Known Family History: Positive: Cardiac Disease - ID - Social History Alcohol Use: None Hx Substance Use: No Substance Use Type: Reports: None Substance Use Comment - Amount & Last Used: unknown Hx Tobacco Use: No Smoking Status (MU): Never Smoked Tobacco Review of Systems - ROS Summary Review of Systems Summary: ROS IS LIMITED DUE TO LEVEL 5 CAVEAT - patient with confusion Negative: Fever Negative: Shortness Of Breath Neurological/Mental Status: Other - POSITIVE: confusion Negative: Headache All Other Systems Reviewed And Are Negative: No Physical Exam - Summary Physical Exam Summary: VITAL SIGNS: Reviewed. GENERAL: Patient is a well-developed and nourished female who is lying comfortable in the stretcher. Patient is not in any acute respiratory distress. HEAD AND FACE: No signs of trauma. No ecchymosis, hematomas or skull depressions. No sinus tenderness. EYES: PERRLA, EOMI x 2, No injected conjunctiva, no nystagmus. EARS: Hearing grossly intact. Ear canals and tympanic membranes are within normal limits. MOUTH: Oropharynx within normal limits. NECK: Supple, trachea is midline, no adenopathy, no JVD, no carotid bruit, no c- spine tenderness, neck with full ROM. CHEST: Symmetric, no tenderness at palpation LUNGS: Clear to auscultation bilaterally. No wheezing or crackles. CVS: Irregularly irregular rate and rhythm, S1 and S2 present, no murmurs or gallops appreciated. ABDOMEN: Soft, non-tender. No signs of distention. No rebound no guarding, and no masses palpated. Bowel sounds are normal. EXTREMITIES: FROM in all major joints, no edema, no cyanosis or clubbing. NEURO: Alert but not oriented. No acute neurological deficits. Speech is normal and follows commands. SKIN: Dry and warm GCS: 13 Triage Information Reviewed: Yes Vital Signs On Initial Exam: Initial Vitals Temp Pulse Resp BP Pulse Ox 98.8 F 73 18 179/88 100 06/10/19 12:23 06/10/19 12:23 06/10/19 12:23 06/10/19 12:23 06/10/19 12:23 Vital Signs Reviewed: Yes Completion Of Physical Exam Limited Due To: Level 5 - patient is confused Procedures - Sedation Patient Received Moderate/Deep Sedation with Procedure: No Diagnostics - Vital Signs Vital Signs Temp Pulse Resp BP Pulse Ox 06/10/19 12:23 98.8 F 73 18 179/88 100 - Laboratory Result Diagrams: 06/11/19 05:22 06/11/19 05:23 Lab Statement: Any lab studies that have been ordered have been reviewed, and results considered in the medical decision making process. - Radiology Chest XR Radiology Interpretation Completed By: Radiologist Summary of Radiographic Findings: IMPRESSION: No active cardiopulmonary disease. Dr. Wood has reviewed this report. - CT Brain CT CT Interpretation Completed By: Radiologist Summary of CT Findings: IMPRESSION: #. No acute intracranial process evident. # . Mild involutional change. Dr. Wood has reviewed this report. - EKG 1322 Cardiac Rate: NL - at 72 bpm EKG Rhythm: Atrial Fibrillation Summary of EKG Findings: EKG at 1322 shows atrial fibrillation at [address] elevations. This EKG was interpreted and reviewed by ED physician. Altered Mental Statu Course/Dx - Course Assessment/Plan: This patient is a 73 y/o female presenting to [facility] c/o confusion today. Patient was seen here in the emergency department yesterday for the same and was found to have severe low magnesium. Patient was repleted with 4g of IV magnesium and evaluated by the hospitalist and then discharged home with supplemental magnesium. HPI IS LIMITED DUE TO LEVEL 5 CAVEAT - confusion. In the ED course the patient was placed in a phototypesetting equipment monitor, IV access was obtained, IV fluids were started. Past medical records reviewed. Blood test w/o a significant abnormality except for hemoglobin of 11.8, platelet count is 114, BUN is 75, creatinine 2.7, glucose 214, magnesium 3, total bili is 1.9, ammonia level is 157, alkaline phosphatase is 172, troponin 0.03, Albumin level of 3.1. CXR IMPRESSION: NO ACTIVE CARDIOPULMONARY DISEASE. Head CT IMPRESSION: #. No acute intracranial process evident. #. Mild involutional change. Patient was given Lactulose for her Hepatic encephalopathy. She was given hydration for her dehydration. At 2:26 PM: I discussed my physical exam and test results with Dr. Devi from the hospitalist services and she agrees to admit the patient to her services. The patient is hemodynamically stable. - Diagnoses Provider Diagnoses: Hepatic encephalopathy, CKD (chronic kidney disease), stage III, Dehydration, Elevated troponin - Provider Notifications Discussed Care Of Patient With: Janelle Devi - hospitalist Time Discussed With Above Provider: 14:26 Instructed by Provider To: Admit As Inpatient - Critical Care Time Critical Care Statement: Critical care time is provided exclusive of any time spent performing procedures. Discharge ED - Sign-Out/Discharge Documenting (check all that apply): Patient Departure - Admit to [facility] - Discharge Plan Condition: Stable Disposition: ADMITTED TO [facility] - Billing Disposition and Condition Condition: STABLE Disposition: Admitted to [facility] - Attestation Statements Document Initiated by Neftaly: Yes Documenting Scribe: Cindy Venegas Provider For Whom Neftaly is Documenting (Include Credential): Flavio Wood MD Scribe Attestation: Cindy Dunbar, scribed for Flavio Wood MD on 06/11/19 at 1224. Scribe Documentation Reviewed: Yes Provider Attestation: The documentation as recorded by the Cindy bryant accurately reflects the service I personally performed and the decisions made by me, Flavio Wood MD Status of Scribe Document: Viewed
[2019-06-10 13:51] LABS: ABS Basophils 0.1 10^3/ul (0-0.2); ABS Eosinophils 0.1 10^3/ul (0-0.6); ABS Lymphocytes 1.7 10^3/ul (1.0-4.8); ABS Monocytes 0.4 10^3/ul (0-0.8); ABS Neutrophils 3.3 10^3/ul (1.5-7.7); Hematocrit 35 % (35-47); Hemoglobin 11.8 g/dL (12.0-16.0); Lymphocyte % 30.7 %; Mean Corpuscular HGB Conc 34 g/dL (31-36); Mean Corpuscular Hemoglobin 34 pg (27-31); Mean Corpuscular Volume 101 fL (80-97); Mean Platelet Volume 9.5 fL (7.4-10.4); Nucleated Red Blood Cells % 0.1; Platelet Count 114 10^3/uL (150-450); Red Blood Count 3.48 10^6 /uL (3.70-4.87); Red Cell Distribution Width 16 % (10-15); White Blood Count 5.5 10^3/uL (3.5-10.8)
[2019-06-10 13:56] LABS: INR 1.1 (0.82-1.09)
[2019-06-10 14:02] LABS: ALT 18 U/L (7-52); AST 35 U/L (13-39); Albumin 3.1 g/dL (3.2-5.2); Albumin/Globulin Ratio 0.6 (1-3); Alkaline Phosphatase 172 U/L (34-104); Anion Gap 9 mmol/L (2-11); BUN/Creatinine Ratio 27.8 (8-20); Blood Urea Nitrogen 75 mg/dL (6-24); CO2 Carbon Dioxide 23 mmol/L (22-32); Calcium 10.3 mg/dL (8.6-10.3); Chloride 103 mmol/L (101-111); Creatine Kinase 30 U/L (10-223); EGFR African American 20.9 (>60); EGFR Non-African American 17.3 (>60); Glucose 214 mg/dL (70-100); Potassium 4.1 mmol/L (3.5-5.0); Sodium 135 mmol/L (135-145); Total Protein 8.1 g/dL (6.4-8.9)
[2019-06-10 14:05] LABS: Troponin I 0.03 ng/mL (<0.03)
[2019-06-10 14:15] LABS: Alcohol < 10 mg/dL (<10)
[2019-06-10 14:27] LABS: Acetaminophen < 15 mcg/mL
[2019-06-10 14:29] LABS: TSH (Thyroid Stimulating Horm) 2.29 mcIU/mL (0.34-5.60)
[2019-06-10] MEDS ORDERED: Nystatin TOP POWDER* 15 GM BTL TOPICAL PRN (16:02)
[2019-06-10 16:15] LABS: Urine Appearance Clear; Urine Bilirubin Negative (Negative); Urine Blood Negative (Negative); Urine Color Straw; Urine Glucose Negative (Negative); Urine Ketones Negative (Negative); Urine Nitrite Negative (Negative); Urine Protein Negative (Negative); Urine Specific Gravity 1.008 (1.010-1.030); Urine Urobilinogen Negative (Negative)
[2019-06-10 16:22] LABS: Urine Bacteria 1+ (Absent); Urine Red Blood Cell 2+(6-10/hpf) (Absent); Urine Squamous Epithelial Cell Present (Absent); Urine White Blood Cell 1+(6-10/hpf) (Absent)
--- NOTE | 2019-06-10 16:28 | HP ---
History of Present Illness - History of Present Illness Reason for Visit: Confusion History of Present Illness: Bonnie Hankins is a 73 F with history of Decompensated Cirrhosis 2/2 DASH cx by HE x2, CKD, HTN, IDDM, anemia, presented to [facility] for confusion for 2 days. She was in her usual health until 2 days ago. Patient is not a good historian, the history was mainly obtained from her over phone. She was noticed by her that she kept repeating things and becoming more confused. For example, she kept repeating her name no matter what she was asked about. She would mention her sister name repeatedly to her when he asked her about her birthday. They brought her to ED yesterday, found to have low Mg, which they thought maybe the reason causing her confusion. She did improve after giving Mg. However this morning, patient became confused again, and started to repeat things. She had no other symptoms including dysarthria, weakness, numbness, gait instability. Patient was compliant with lactulose 3 times a day since last discharge, she had regular bowel movement 3 times a day. She had no bleeding, increasing abdominal girth, no precipitant her noticed. When I saw the patient in ED, patient was calm, comfortable. She was able to answer half of the questions appropriately. However, when asked where she was, she started to repeat a name again and again , stating this was her dog. She didn't have any dysarthria, however what she was talking were also random words that didn't make good sense in the context. One dose of lactulose was given, magnesium was given as well in ED. Patient denied any infective sx including fever, chills, abdominal pian etc, no contact with COVID 19 patients. - Past Medical History Past Medical History: 1. 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 Hypertension 3. CKD 4. IDDM 5. Anemia 6. GERD - Past Surgical History Past Surgical History: 1. Tonsillectomy 2. Optic nerve growth removal - Past Family History Past Family History: This was obtained from previous record, mother has history of [place] at age 73. father had history of [place] at age 70, and diabetes/ - Past Social History Past Social History: Patient is , living with , Abhinav Cavazos, who is her HCP. No smoking, alcohol, drug use. Patient is DNR/DNI. Medications: Home Medications Medication Instructions Recorded Confirmed Type Ferrous Gluconate TAB* [Fergon 324 mg PO DAILY #30 tab 02/21/19 06/10/19 Rx TAB*] [place]-3 Fatty Acids (Nf) [Fish Oil 1,000 mg PO DAILY 04/02/19 06/10/19 History (NF)] Nadolol TAB* [Corgard TAB*] 20 mg PO DAILY tab 04/18/19 06/10/19 Rx Pantoprazole TAB * [Protonix TAB*] 40 mg PO BID tab 04/18/19 06/10/19 Rx Spironolactone TAB* [Aldactone TAB 50 mg PO DAILY tab 04/18/19 06/10/19 Rx 25 MG*] Torsemide TAB* [Demadex 20 MG*] 40 mg PO DAILY tab 04/18/19 06/10/19 Rx Nystatin TOP POWDER* 1 applic TOPICAL BID PRN 05/13/19 06/10/19 History RiFAXimin* [Xifaxan*] 550 mg PO BID #60 tab 05/15/19 06/10/19 Rx Allopurinol TAB* [Zyloprim 100 MG 300 mg PO DAILY 06/09/19 06/10/19 History TAB*] Aspirin EC TAB* [Ecotrin EC Low 81 mg PO DAILY 06/09/19 06/10/19 History Dose 81 MG*] Cannabidiol (CBD) Extract (NF) 100 mg PO DAILY 06/09/19 06/10/19 History [Epidiolex (NF)] Insulin Glargine,Hum.rec.anlog 8 units SUBCUT DAILY 06/09/19 06/10/19 History [Lantus Solostar 100 units/ml 3 ml x 5 PENS] Lactulose* 30 ml PO .BID-TID MDD 90ml 06/09/19 06/10/19 History oxyCODONE TAB* [Roxycodone TAB 5 2.5 - 5 mg PO QID PRN 06/09/19 06/10/19 History mg*] Allergies/Adverse Reactions: Allergies Allergy/AdvReac Type Severity Reaction Status Date / Time No Known Allergies Allergy Verified 06/09/19 08:43 Review of Systems - Review of Systems Constitutional: Negative: Fever, Chills, Sweats, Weakness, Malaise, Other Eyes: Negative: Pain, Vision Change, Conjunctivae Inflammation, Eyelid Inflammation, Redness, Other ENT: Negative: Ear Pain, Ear Discharge, Nose Pain, Nose Discharge, Nose Congestion, Mouth Pain, Mouth Swelling, Throat Pain, Throat Swelling, Other Respiratory: Negative: Cough, Dry, Shortness of Breath, Hemoptysis, SOB with Excertion, Pleuritic Pain, Sputum, Wheezing Cardiovascular: Negative: Chest Pain, Palpitations, Orthopnea, Paroxysmal Noc. Dyspnea, Edema, Light Headedness, Other Gastrointestinal: Negative: Nausea, Vomiting, Abdominal Pain, Diarrhea, Constipation, Melena, Hematochezia, Other Genitourinary: Negative: Dysuria, Frequency, Incontinence, Hematuria, Retention , Other Musculoskeletal: Negative: Neck Pain, Shoulder Pain, Arm Pain, Back Pain, Hand Pain, Leg Pain, Foot Pain, Other Skin: Negative: Rash, Lesions, Vinny, Bruising, Other Neurological/Mental Status: Positive: Confusion Exam Vital Signs: Vital Signs (72 hours) 06/10/19 06/10/19 06/10/19 12:23 13:32 13:33 Temperature 98.8 F Pulse Rate 73 83 86 Respiratory 18 Rate Blood Pressure 179/88 157/73 (mmHg) O2 Sat by Pulse 100 100 100 Oximetry 06/10/19 06/10/19 06/10/19 13:45 14:00 14:01 Temperature Pulse Rate 72 67 68 Respiratory Rate Blood Pressure 149/67 (mmHg) O2 Sat by Pulse 100 100 100 Oximetry 06/10/19 06/10/19 06/10/19 14:27 14:28 14:30 Temperature Pulse Rate 92 100 89 Respiratory Rate Blood Pressure 177/105 (mmHg) O2 Sat by Pulse 96 100 96 Oximetry 06/10/19 06/10/19 06/10/19 14:31 14:45 15:00 Temperature Pulse Rate 71 63 67 Respiratory Rate Blood Pressure 176/71 (mmHg) O2 Sat by Pulse 100 100 100 Oximetry 06/10/19 06/10/19 06/10/19 15:01 15:15 15:30 Temperature Pulse Rate 68 78 72 Respiratory Rate Blood Pressure 124/63 (mmHg) O2 Sat by Pulse 100 99 100 Oximetry 06/10/19 06/10/19 06/10/19 15:31 15:45 16:00 Temperature Pulse Rate 74 69 103 Respiratory Rate Blood Pressure 159/77 (mmHg) O2 Sat by Pulse 100 100 Oximetry Exam: GEN: elderly women, not in acute distress, alert, sitting on a stretcher Skin: not dry HEENT: sclera anicteric, no pallor HEART: normal S1,s2, systolic murmur heard. ABDOMEN: soft, non tender, chronic skin changes on lower abdominal area, no ascites found. Extremity: no edema Neurological: mild tremor, alert, oriented to year, not orientd to others. Not agitated Psy: calm. Result Diagrams: 06/10/19 13:34 06/10/19 13:34 Assessment/Plan - Assessment/Plan Assessment: Bonnie Hankins is a 73 F with history of Decompensated Cirrhosis 2/2 DASH cx by HE x2, CKD, HTN, IDDM, anemia, presented to [facility] for confusion for 2 days, found to have normal CT brain, high ammonia, normal electroytes. likely hepatic encephalopathy Plan: 1. Hepatic encephalopathy - evidenced by elevated ammonia with known decompensated cirrhosis - precipitating factor unclear, electrolytes normal today (low Mg but replaced) , no gi bleed, creatinine stable, compliant with lactulose 3 times per day - start patient on lactulose and rifaximin. She failed first line treatment lactulose, we need to try to get her rifaximin approved by her insurance company - patient had US to rule out portal vein thrombosis last admission, however difficult to tell due to her body habitus, this may be the only possible precipitant we haven't ruled out. 2. EKG abnormality - noted EKG abnormality on admission, hard to see p waves (low voltage), Atrial fibrillation vs 2nd degree heart block - repeat EKG normalized - troponin mildly elevated on admission, will continue to trend - we will put patient on telemetry monitoring - last echo in Dec 2018 normal, no need to repeat right now 3. Decompensated cirrhosis - decompensated by HE x2, portal hypertension - continue home dose torsemide, spironolactone, nadolol - no signs and sx of spontaneous peritonitis - avoid hepatotoxic agents 4. Anemia - Hb stable, no evidence of GI bleed 5. Hypertension 6. IDDM - continue on insulin glargine 8U daily 7. CKD - creatinine baseline 8. Gout - on allopurinol 9. DVT prophylaxis - SCD 10. DNR/DNI - confirmed with , had MOLST form filled up before Attestation Documenting Resident: Aung Supervising Physician: Marito Attending/Supervising Physician Comment: Bonnie is well known to me from a recent admission for hepatic encephalopathy. At that time, no etiology for her decompensation was found. The only source of decompensation we could not rule out was a portal vein thrombus due to body habitus. Rifaxamin was unable to be obtained due to very high cost. We had increased the lactulose at that time. Again, reason for decompensation is unclear, however, her mental status is not as severely decompensated as last time. She does have asterixis on exam. Will try to arrange rifaxamin at discharge this time. No evidence of bleed, infection, ingestion. Attestation: This service has been performed in part by a resident under the direction of a teaching physician.I, Marito, performed the service, or was physically present during the critical, or st portions of the service, furnished by the resident. I participated in the management of the patient. Addendum entered and electronically signed by Soheila Horan MD 06/10/19 17:11: History of Present Illness - History of Present Illness History of Present Illness: Please replace this with prev History part Bonnie Hankins is a 73 F with history of Decompensated Cirrhosis 2/2 DASH cx by HE x2, CKD, HTN, IDDM, anemia, presented to [facility] for confusion for 2 days. She was in her usual health until 2 days ago. Patient is not a good historian, the history was mainly obtained from her over phone. She was noticed by her that she kept repeating things and becoming more confused. For example, she kept repeating her name no matter what she was asked about. She would mention her sister name repeatedly to her when he asked her about her birthday. They brought her to ED yesterday, found to have low Mg, which they thought maybe the reason causing her confusion. She did improve after giving Mg. However this morning, patient became confused again, and started to repeat things. She had no other symptoms including dysarthria, weakness, numbness, gait instability. Patient was compliant with lactulose 3 times a day since last discharge, she had regular bowel movement 3 times a day. She had no bleeding, increasing abdominal girth, no precipitant her noticed. When I saw the patient in ED, patient was calm, comfortable. She was able to answer half of the questions appropriately. However, when asked where she was, she started to repeat a name again and again , stating this was her dog. She didn't have any dysarthria, however what she was talking were also random words that didn't make good sense in the context. One dose of lactulose was given, magnesium was given as well in ED. Patient denied any infective sx including fever, chills, abdominal pian etc, no contact with COVID 19 patients. Medications: Allergies/Adverse Reactions: Allergies Allergy/AdvReac Type Severity Reaction Status Date / Time No Known Allergies Allergy Verified 06/09/19 08:43 Exam Vital Signs: Result Diagrams: 06/10/19 13:34 06/10/19 13:34
[2019-06-10 16:35] LABS: Urine Benzodiazepine Screen None Detected (None Detect); Urine Opiates Screen None Detected (None Detect)
[2019-06-10] MEDS: RiFAXimin* 550 MG TAB PO SCH (20:40)
[2019-06-10] MEDS: Pantoprazole TAB * 40 MG TAB PO SCH (20:40)
[2019-06-10] MEDS ORDERED: Melatonin 3 MG TAB PO PRN (23:05)
[2019-06-10] MEDS ORDERED: Acetaminophen TAB* 325 MG PO ONE (23:05)
[2019-06-11 06:11] LABS: Hematocrit 29 % (35-47); Hemoglobin 9.8 g/dL (12.0-16.0); Mean Corpuscular HGB Conc 34 g/dL (31-36); Mean Corpuscular Hemoglobin 34 pg (27-31); Mean Corpuscular Volume 101 fL (80-97); Red Blood Count 2.86 10^6 /uL (3.70-4.87); Red Cell Distribution Width 16 % (10-15); White Blood Count 6.2 10^3/uL (3.5-10.8)
[2019-06-11 06:13] LABS: Albumin 2.5 g/dL (3.2-5.2); Albumin/Globulin Ratio 0.6 (1-3); BUN/Creatinine Ratio 27.3 (8-20); Calcium 9.6 mg/dL (8.6-10.3); EGFR African American 21.2 (>60); EGFR Non-African American 17.5 (>60); Globulin 4.1 g/dL (2-4); Potassium 3.9 mmol/L (3.5-5.0); Total Bilirubin 1.6 mg/dL (0.2-1.0); Total Protein 6.6 g/dL (6.4-8.9)
[2019-06-11 06:43] LABS: ABS Eosinophils 0.2 10^3/ul (0-0.6); ABS Lymphocytes 2.3 10^3/ul (1.0-4.8); ABS Monocytes 0.6 10^3/ul (0-0.8); Eosinophil % 3.2 %; Lymphocyte % 37.8 %; Nucleated Red Blood Cells % 0.1; Platelet Count 93 10^3/uL (150-450)
[2019-06-11 07:55] LABS: Troponin I 0.01 ng/mL (<0.03)
--- NOTE | 2019-06-11 08:38 | PN ---
Subjective Date of Service: 06/11/19 Interval History: Patient is more lucid today. She answer all orientation questions correctly. She is concerned about the recurrence of her symptoms, and wanted to know further treatment to avoid frequent in and out. I explained to her that we didn' t find any definite reason why she had same symptoms again, we will try to push to get her rifaximin as second line medication to help with her symptoms. She expressed a lot of frustration about getting that approval. I also explored alternative option like liver transplant which she is not considering at this moment. Objective Active Medications: Allopurinol (Zyloprim Tab*) 300 mg PO DAILY [facility] Aspirin (Aspirin Ec Tab*) 81 mg PO DAILY [facility] Ferrous Gluconate (Fergon Tab*) 324 mg PO DAILY [facility] Insulin Glargine (Lantus(*)) 8 units SUBCUT DAILY [facility] Lactulose (Lactulose*) 30 ml PO TID [facility] Last Admin: 06/10/19 20:40 Dose: 30 ml Melatonin (Melatonin) 3 mg PO BEDTIME PRN PRN Reason: SLEEP Last Admin: 06/10/19 23:29 Dose: 3 mg Nadolol (Corgard Tab*) 20 mg PO DAILY [facility] Nystatin (Nystatin Top Powder*) 1 applic TOPICAL BID PRN PRN Reason: Skin irritation Pantoprazole Sodium (Protonix Tab*) 40 mg PO BID [facility] Last Admin: 06/10/19 20:40 Dose: 40 mg Rifaximin (Xifaxan*) 550 mg PO BID [facility] Last Admin: 06/10/19 20:40 Dose: 550 mg Spironolactone (Aldactone Tab*) 50 mg PO DAILY [facility] Torsemide (Demadex*) 40 mg PO DAILY [facility] Vital Signs - 8 hr 06/11/19 06/11/19 03:17 07:00 Temperature 98.7 F 98.8 F Pulse Rate 70 69 Respiratory 16 17 Rate Blood Pressure 153/82 129/50 (mmHg) O2 Sat by Pulse 100 100 Oximetry Oxygen Devices in Use Now: None Exam: GEN: elderly women, not in acute distress, alert and comfortable Skin: mucosa moist HEENT: sclera anicteric, no pallor HEART: normal S1,s2, systolic murmur heard. ABDOMEN: soft, non tender, chronic skin changes on lower abdominal area, no ascites found. Extremity: no edema Neurological: oriented x4, alert. Psy: calm, stable mood. 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 likely recurrence of hepatic encephalopathy, no definite precipitant found. - Patient Problems (1) Hepatic encephalopathy Current Visit: No Status: Acute Code(s): K72.90 - HEPATIC FAILURE, UNSPECIFIED WITHOUT COMA SNOMED Code(s): 63847153 Comment: - Elevted ammonia with altered mental status - No focal deficit to indicate CVA - Improved today - No clear precipitating factor seen- likely failing lactulose, and need second line treatment; NO e/o GI bleed, infection, no worsening renal failure, - Ensure 2-3 soft stools per day - continue lactulose and rifaximin here, try to push for rifaximin approval in outpatient setting (2) Decompensated hepatic cirrhosis Current Visit: No Status: Acute Code(s): K72.90 - HEPATIC FAILURE, UNSPECIFIED WITHOUT COMA SNOMED Code(s): 014812698 Comment: -with HE, secondary to GODFREY. -Portal HTN- Nadolol(low- dose), torsemide and spironolactone -HE: lactulose, rifaximin-> Need to push for rifaximin approval outpatient setting -no SBP prophylaxis needed since it's resolving -avoid hepatotoxic drugs (3) Irregular heart beat Current Visit: Yes Status: Acute Code(s): I49.9 - CARDIAC ARRHYTHMIA, UNSPECIFIED SNOMED Code(s): 652511450 Comment: - initial EKG like Afib, p wave absent but could be low voltage and hard to tell - was on telemetry overnight, PAC seen - trop normalized - off telemetry today (4) CKD (chronic kidney disease), stage III Current Visit: No Status: Acute Code(s): N18.3 - CHRONIC KIDNEY DISEASE, STAGE 3 (MODERATE) SNOMED Code(s): 026061057 Comment: - baseline creatinine is 2.67 (5) Diabetes mellitus Current Visit: No Status: Chronic Code(s): E11.9 - TYPE 2 DIABETES MELLITUS WITHOUT COMPLICATIONS SNOMED Code(s): 40752166 Comment: - A1c is 7.3% 06/08 - now on glargine 8U, will increase to 10U (6) DNR (do not resuscitate) Current Visit: No Status: Acute Comment: Status and Disposition: Inpatient Medicine. Consider discharge soon once starting the process of getting rifaximin approval Attestation Documenting Resident: Aung Supervising Physician: Marito Attending/Supervising Physician Comment: Markedly improved today. Stable for discharge. Prior auth for rifaxamin completed. Will need to be followed up on by her per diem rn. Case discussed with Dr. Gallego and Dr. Morgan Garrett. Dr. Morgan Garrett notes that splenorenal shunting was noted on prior CT abdomen; ultimately may be contributing to encephalopathy and a BRTO would be a treatment option for refractory encephalopathy. Dr. Smart could refer her to [place] for this. Attestation: This service has been performed in part by a resident under the direction of a teaching physician.IMarito, performed the service, or was physically present during the critical, or st portions of the service, furnished by the resident. I participated in the management of the patient.
[2019-06-11] MEDS: RiFAXimin* 550 MG TAB PO SCH ×2 (08:45→18:00)
[2019-06-11] MEDS: Pantoprazole TAB * 40 MG TAB PO SCH (08:45)
[2019-06-11] MEDS ORDERED: Insulin GLARGINE(*) 1 UNITS UNIT SUBCUT SCH ×2 (09:00)
[2019-06-11] MEDS ORDERED: Allopurinol TAB* 300 MG PO SCH (09:00)
[2019-06-11] MEDS ORDERED: Spironolactone TAB* 25 MG PO SCH (09:00)
[2019-06-11] MEDS ORDERED: Ferrous Gluconate TAB* 324 MG TAB PO SCH (09:00)
[2019-06-11] MEDS ORDERED: Nadolol TAB* 40 MG PO SCH (09:00)
[2019-06-11] MEDS ORDERED: Torsemide TAB* 20 MG PO SCH (09:00)
[2019-06-11] MEDS ORDERED: Aspirin EC TAB* 81 MG TAB.EC PO SCH (09:00)
--- NOTE | 2019-06-11 11:32 | CONSULT ---
Palliative / Hospice Consult Ordering Provider: Janelle Devi - PCP-Parrish Referal Reason: Goals of care/lactulose/no pain meds - Subjective Code Status: DNR Advance Directives Location: With Family MOLST Part A Completed: Yes - photocopy on chart MOLST Part E Completed:: Yes - photocopy on chart - History or Present Illness History or Present Illness: 73yo female with decompensated cirrhosis presents with confusion. PMH is significant for cirrhosis secondary to GODFREY with hepatic encephalopathy, varices and GAVE, CKD, HTN, IDDM, anemia and GERD. 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 Studies Ekg-afib, CXR-neg, brain CT-no acute, mild involutional change, Ekg#2-NSR, H/H 11.8/35, BUN/Cr 75/2.70, egr 17.3, INR 1.10, MELD 21, Mg 3, NH4 157 and alb 3.1. Admitted with hepatic encephalopathy. Prior admissions for 01/01-01/03 code adkins, 02/17-02/21 fever, 04/02 -04/18 kidney issue, 05/12-05/14 hepatic encephalopthy. All history is from pt and medical record. Lab Values: Abnormal Lab Results 06/10/19 06/10/19 06/10/19 12:55 12:57 13:34 WBC 5.5 RBC 3.48 L Hgb 11.8 L Hct 35 MCV 101 H MCH 34 H MCHC 34 RDW 16 H Plt Count 114 L MPV 9.5 Neut % (Auto) 58.8 Lymph % (Auto) 30.7 [place] % (Auto) 7.5 Eos % (Auto) 2.0 Baso % (Auto) 1.0 Absolute Neuts (auto) 3.3 Absolute Lymphs (auto) 1.7 Absolute Monos (auto) 0.4 Absolute Eos (auto) 0.1 Absolute Basos (auto) 0.1 Absolute Nucleated RBC 0.0 Nucleated RBC % 0.1 INR (Anticoag Therapy) Sodium Potassium Chloride Carbon Dioxide Anion Gap BUN Creatinine Est GFR ( Amer) Est GFR (Non-Af Amer) BUN/Creatinine Ratio Glucose Lactic Acid Calcium Magnesium Total Bilirubin AST ALT Alkaline Phosphatase Ammonia Total Creatine Kinase Troponin I Total Protein Albumin Globulin Albumin/Globulin Ratio TSH Urine Color Straw Urine Appearance Clear Urine pH 6.0 Ur Specific [place] 1.008 L Urine Protein Negative Urine Ketones Negative Urine Blood Negative Urine Nitrate Negative Urine Bilirubin Negative Urine Urobilinogen Negative Ur Leukocyte Esterase 1+ A Urine WBC (Auto) 1+(6-10/hpf) A Urine RBC (Auto) 2+(6-10/hpf) A Ur Squamous Epith Cells Present A Urine Bacteria 1+ A Hyaline Casts Present A Urine Glucose Negative Urine Opiates Screen None detected Acetaminophen Ur Barbiturates Screen None detected Ur Phencyclidine Scrn None detected Ur Amphetamines Screen None detected U Benzodiazepines Scrn None detected Urine Cocaine Screen None detected U Cannabinoids Screen None detected Serum Alcohol 06/10/19 06/10/19 06/10/19 13:34 13:34 13:34 WBC RBC Hgb Hct MCV MCH MCHC RDW Plt Count MPV Neut % (Auto) Lymph % (Auto) [place] % (Auto) Eos % (Auto) Baso % (Auto) Absolute Neuts (auto) Absolute Lymphs (auto) Absolute Monos (auto) Absolute Eos (auto) Absolute Basos (auto) Absolute Nucleated RBC Nucleated RBC % INR (Anticoag Therapy) Sodium 135 Potassium 4.1 Chloride 103 Carbon Dioxide 23 Anion Gap 9 BUN 75 H Creatinine 2.70 H Est GFR ( Amer) 20.9 Est GFR (Non-Af Amer) 17.3 BUN/Creatinine Ratio 27.8 H Glucose 214 H Lactic Acid 1.8 Calcium 10.3 Magnesium 3.0 H Total Bilirubin 1.90 H AST 35 ALT 18 Alkaline Phosphatase 172 H Ammonia 157 H Total Creatine Kinase 30 Troponin I 0.03 H* Total Protein 8.1 Albumin 3.1 L Globulin 5.0 H Albumin/Globulin Ratio 0.6 L TSH 2.29 Urine Color Urine Appearance Urine pH Ur Specific [place] Urine Protein Urine Ketones Urine Blood Urine Nitrate Urine Bilirubin Urine Urobilinogen Ur Leukocyte Esterase Urine WBC (Auto) Urine RBC (Auto) Ur Squamous Epith Cells Urine Bacteria Hyaline Casts Urine Glucose Urine Opiates Screen Acetaminophen < 15 Ur Barbiturates Screen Ur Phencyclidine Scrn Ur Amphetamines Screen U Benzodiazepines Scrn Urine Cocaine Screen U Cannabinoids Screen Serum Alcohol < 10 06/10/19 06/11/19 06/11/19 13:34 05:22 05:23 WBC 6.2 RBC 2.86 L Hgb 9.8 L Hct 29 L MCV 101 H MCH 34 H MCHC 34 RDW 16 H Plt Count 93 L MPV 10.0 Neut % (Auto) 48.6 Lymph % (Auto) 37.8 [place] % (Auto) 9.6 Eos % (Auto) 3.2 Baso % (Auto) 0.8 Absolute Neuts (auto) 3.0 Absolute Lymphs (auto) 2.3 Absolute Monos (auto) 0.6 Absolute Eos (auto) 0.2 Absolute Basos (auto) 0.0 Absolute Nucleated RBC 0.0 Nucleated RBC % 0.1 INR (Anticoag Therapy) 1.10 H Sodium 132 L Potassium 3.9 Chloride 102 Carbon Dioxide 22 Anion Gap 8 BUN 73 H Creatinine 2.67 H Est GFR ( Amer) 21.2 Est GFR (Non-Af Amer) 17.5 BUN/Creatinine Ratio 27.3 H Glucose 261 H Lactic Acid Calcium 9.6 Magnesium Total Bilirubin 1.60 H AST 27 ALT 14 Alkaline Phosphatase 133 H Ammonia Total Creatine Kinase Troponin I 0.01 Total Protein 6.6 Albumin 2.5 L Globulin 4.1 H Albumin/Globulin Ratio 0.6 L TSH Urine Color Urine Appearance Urine pH Ur Specific [place] Urine Protein Urine Ketones Urine Blood Urine Nitrate Urine Bilirubin Urine Urobilinogen Ur Leukocyte Esterase Urine WBC (Auto) Urine RBC (Auto) Ur Squamous Epith Cells Urine Bacteria Hyaline Casts Urine Glucose Urine Opiates Screen Acetaminophen Ur Barbiturates Screen Ur Phencyclidine Scrn Ur Amphetamines Screen U Benzodiazepines Scrn Urine Cocaine Screen U Cannabinoids Screen Serum Alcohol Laboratory Last Values WBC 6.2 10^3/uL (3.5-10.8) 06/11/19 05:22 RBC 2.86 10^6 /uL (3.70-4.87) L 06/11/19 05:22 Hgb 9.8 g/dL (12.0-16.0) L 06/11/19 05:22 Hct 29 % (35-47) L 06/11/19 05:22 MCV 101 fL (80-97) H 06/11/19 05:22 MCH 34 pg (27-31) H 06/11/19 05:22 MCHC 34 g/dL (31-36) 06/11/19 05:22 RDW 16 % (10-15) H 06/11/19 05:22 Plt Count 93 10^3/uL (150-450) L 06/11/19 05:22 MPV 10.0 fL (7.4-10.4) 06/11/19 05:22 Neut % (Auto) 48.6 % 06/11/19 05:22 Lymph % (Auto) 37.8 % 06/11/19 05:22 [place] % (Auto) 9.6 % 06/11/19 05:22 Eos % (Auto) 3.2 % 06/11/19 05:22 Baso % (Auto) 0.8 % 06/11/19 05:22 Absolute Neuts (auto) 3.0 10^3/ul (1.5-7.7) 06/11/19 05:22 Absolute Lymphs (auto) 2.3 10^3/ul (1.0-4.8) 06/11/19 05:22 Absolute Monos (auto) 0.6 10^3/ul (0-0.8) 06/11/19 05:22 Absolute Eos (auto) 0.2 10^3/ul (0-0.6) 06/11/19 05:22 Absolute Basos (auto) 0.0 10^3/ul (0-0.2) 06/11/19 05:22 Absolute Nucleated RBC 0.0 10^3/ul 06/11/19 05:22 Nucleated RBC % 0.1 06/11/19 05:22 INR (Anticoag Therapy) 1.10 (0.82-1.09) H 06/10/19 13:34 Sodium 132 mmol/L (135-145) L 06/11/19 05:23 Potassium 3.9 mmol/L (3.5-5.0) 06/11/19 05:23 Chloride 102 mmol/L (101-111) 06/11/19 05:23 Carbon Dioxide 22 mmol/L (22-32) 06/11/19 05:23 Anion Gap 8 mmol/L (2-11) 06/11/19 05:23 BUN 73 mg/dL (6-24) H 06/11/19 05:23 Creatinine 2.67 mg/dL (0.51-0.95) H 06/11/19 05:23 Est GFR ( Amer) 21.2 (>60) 06/11/19 05:23 Est GFR (Non-Af Amer) 17.5 (>60) 06/11/19 05:23 BUN/Creatinine Ratio 27.3 (8-20) H 06/11/19 05:23 Glucose 261 mg/dL (70-100) H 06/11/19 05:23 Lactic Acid 1.8 mmol/L (0.5-2.0) 06/10/19 13:34 Calcium 9.6 mg/dL (8.6-10.3) 06/11/19 05:23 Magnesium 3.0 mg/dL (1.9-2.7) H 06/10/19 13:34 Total Bilirubin 1.60 mg/dL (0.2-1.0) H 06/11/19 05:23 AST 27 U/L (13-39) 06/11/19 05:23 ALT 14 U/L (7-52) 06/11/19 05:23 Alkaline Phosphatase 133 U/L (34-104) H 06/11/19 05:23 Ammonia 157 mcmol/L (16-53) H 06/10/19 13:34 Total Creatine Kinase 30 U/L (10-223) 06/10/19 13:34 Troponin I 0.01 ng/mL (<0.03) 06/11/19 05:23 Total Protein 6.6 g/dL (6.4-8.9) 06/11/19 05:23 Albumin 2.5 g/dL (3.2-5.2) L 06/11/19 05:23 Globulin 4.1 g/dL (2-4) H 06/11/19 05:23 Albumin/Globulin Ratio 0.6 (1-3) L 06/11/19 05:23 TSH 2.29 mcIU/mL (0.34-5.60) 06/10/19 13:34 Urine Color Straw 06/10/19 12:55 Urine Appearance Clear 06/10/19 12:55 Urine pH 6.0 (5-9) 06/10/19 12:55 Ur Specific [place] 1.008 (1.010-1.030) L 06/10/19 12:55 Urine Protein Negative (Negative) 06/10/19 12:55 Urine Ketones Negative (Negative) 06/10/19 12:55 Urine Blood Negative (Negative) 06/10/19 12:55 Urine Nitrate Negative (Negative) 06/10/19 12:55 Urine Bilirubin Negative (Negative) 06/10/19 12:55 Urine Urobilinogen Negative (Negative) 06/10/19 12:55 Ur Leukocyte Esterase 1+ (Negative) A 06/10/19 12:55 Urine WBC (Auto) 1+(6-10/hpf) (Absent) A 06/10/19 12:55 Urine RBC (Auto) 2+(6-10/hpf) (Absent) A 06/10/19 12:55 Ur Squamous Epith Cells Present (Absent) A 06/10/19 12:55 Urine Bacteria 1+ (Absent) A 06/10/19 12:55 Hyaline Casts Present (Absent) A 06/10/19 12:55 Urine Glucose Negative (Negative) 06/10/19 12:55 Urine Opiates Screen None detected (None Detect) 06/10/19 12:57 Acetaminophen < 15 mcg/mL 06/10/19 13:34 Ur Barbiturates Screen None detected (None Detect) 06/10/19 12:57 Ur Phencyclidine Scrn None detected (None Detect) 06/10/19 12:57 Ur Amphetamines Screen None detected (None Detect) 06/10/19 12:57 U Benzodiazepines Scrn None detected (None Detect) 06/10/19 12:57 Urine Cocaine Screen None detected (None Detect) 06/10/19 12:57 U Cannabinoids Screen None detected (None Detect) 06/10/19 12:57 Serum Alcohol < 10 mg/dL (<10) 06/10/19 13:34 - Objective Active Medications: Allopurinol (Zyloprim Tab*) 300 mg PO DAILY [facility] Last Admin: 06/11/19 08:45 Dose: 300 mg Aspirin (Aspirin Ec Tab*) 81 mg PO DAILY [facility] Last Admin: 06/11/19 08:45 Dose: 81 mg Ferrous Gluconate (Fergon Tab*) 324 mg PO DAILY [facility] Last Admin: 06/11/19 08:46 Dose: 324 mg Insulin Glargine (Lantus(*)) 10 units SUBCUT DAILY [facility] Last Admin: 06/11/19 09:35 Dose: 2 unit Lactulose (Lactulose*) 30 ml PO TID [facility] Last Admin: 06/11/19 08:44 Dose: 30 ml Melatonin (Melatonin) 3 mg PO BEDTIME PRN PRN Reason: SLEEP Last Admin: 06/10/19 23:29 Dose: 3 mg Nadolol (Corgard Tab*) 20 mg PO DAILY [facility] Last Admin: 06/11/19 08:45 Dose: 20 mg Nystatin (Nystatin Top Powder*) 1 applic TOPICAL BID PRN PRN Reason: Skin irritation Last Admin: 06/11/19 08:50 Dose: 1 applic Pantoprazole Sodium (Protonix Tab*) 40 mg PO BID [facility] Last Admin: 06/11/19 08:45 Dose: 40 mg Rifaximin (Xifaxan*) 550 mg PO BID [facility] Last Admin: 06/11/19 08:45 Dose: 550 mg Spironolactone (Aldactone Tab*) 50 mg PO DAILY [facility] Last Admin: 06/11/19 08:45 Dose: 50 mg Torsemide (Demadex*) 40 mg PO DAILY [facility] Last Admin: 06/11/19 08:45 Dose: 40 mg Vital Signs: Vital Signs: Temp Pulse Resp BP Pulse Ox 98.8 F 69 18 129/50 100 06/11/19 07:00 06/11/19 07:00 06/11/19 08:00 06/11/19 07:00 06/11/19 07:00 Patient Weight: Weight 83.915 kg Intake and Output: Intake & Output 06/09/19 06/10/19 06/11/19 06/12/19 06:59 06:59 06:59 06:59 Intake Total 500 360 Output Total 0 Balance 500 360 Weight 83.915 kg Intake: Oral 500 360 Output: Urine 0 Other: # Bowel Movements 1 Estimated Stool Amount Medium ADLs: Meal Record Start: 06/10/19 16: 21 Freq: Status: Active Protocol: Created 06/10/19 16:21 System (Rec: 06/10/19 16:21 System [id number]) Document 06/11/19 08:53 [id number] (Rec: 06/11/19 08:53 [id number]) Intake and Output Start: 06/10/19 12: 31 Freq: Status: Active Protocol: Created 06/10/19 12:31 System (Rec: 06/10/19 12:31 System [id number]) Intake and Output Start: 06/10/19 16: 21 Freq: DAILY@0600,1400,2200 Status: Active Protocol: Created 06/10/19 16:21 System (Rec: 06/10/19 16:21 System [id number]) Document 06/10/19 23:00 [id number] (Rec: 06/10/19 23:00 [id number]) Document 06/11/19 06:42 [id number] (Rec: 06/11/19 06:43 [id number]) Head: Normal Eyes: No Scleral Icterus Ears/Nose/Mouth/Throat: NL Teeth, Lips, Gums Neck: NL Appearance and Movements; NL JVP Cardiovascular: NL Sounds; No Murmurs; No JVD Respiratory: Symmetrical Chest Expansion and Respiratory Effort Extremities: No Clubbing, Cyanosis Neurological: Alert and Oriented x 3 - Assessment Assessment: 73yo female with decompensated cirrhosis presents with confusion - Plan Consult Plan (MU): Palliative Plan: Long discussion with pt about goals of care. She is DNR/DNI. She and her have discussed her wishes if her health declines. Pt was appropriately tearful at times. Things are going well at home but she is frustrated she has to keep coming back to the hospital for the confusion. Her is doing a great job caring for her with the help of [facility]. She has PT on hold with [facility] until she feels stronger. Information/brochure about outpatient palliative care given but pt wants to think about it so will hold off on referral. We discussed if her health should decline she wants to be at home. Hospice information/ brochure given. She is not hospice eligible yet especially since she still wants to continue treatments. KPS 50%, PPS 50% - Time On Unit Date of Evaluation: 06/11/19 Hospice Consult Time in: 10:30 Hospice Consult Time Out: 11:30 Hospice Consult Time Total: 60 > 50% of Time Spend In Counseling or Coordinating Care: Yes
[2019-06-11 14:21] VITALS: BP 116/49
--- NOTE | 2019-06-11 16:53 | DS ---
Resident Discharge Summary Discharge Summary: Date of Admission: 06/10/19 Date of Discharge: 06/11/19 Admitting MD: Janelle Devi DO Attending MD: Janelle Devi DO Primary Care Physician: Rafat Senior MD Home Medications Medication Instructions Recorded Confirmed Type Ferrous Gluconate TAB* [Fergon 324 mg PO DAILY #30 tab 02/21/19 06/10/19 Rx TAB*] [place]-3 Fatty Acids (Nf) [Fish Oil 1,000 mg PO DAILY 04/02/19 06/10/19 History (NF)] Nadolol TAB* [Corgard TAB*] 20 mg PO DAILY tab 04/18/19 06/10/19 Rx Pantoprazole TAB * [Protonix TAB*] 40 mg PO BID tab 04/18/19 06/10/19 Rx Spironolactone TAB* [Aldactone TAB 50 mg PO DAILY tab 04/18/19 06/10/19 Rx 25 MG*] Torsemide TAB* [Demadex 20 MG*] 40 mg PO DAILY tab 04/18/19 06/10/19 Rx Nystatin TOP POWDER* 1 applic TOPICAL BID PRN 05/13/19 06/10/19 History Allopurinol TAB* [Zyloprim 100 MG 300 mg PO DAILY 06/09/19 06/10/19 History TAB*] Aspirin EC TAB* [Ecotrin EC Low 81 mg PO DAILY 06/09/19 06/10/19 History Dose 81 MG*] Cannabidiol (CBD) Extract (NF) 100 mg PO DAILY 06/09/19 06/10/19 History [Epidiolex (NF)] Lactulose* 30 ml PO .BID-TID MDD 90ml 06/09/19 06/10/19 History oxyCODONE TAB* [Roxycodone TAB 5 2.5 - 5 mg PO QID PRN 06/09/19 06/10/19 History mg*] Insulin GLARGINE(*) [Lantus 100 10 units SUBCUT DAILY unit 06/11/19 Rx units/ml 10 ml VIAL (*)] Melatonin 3 mg PO BEDTIME PRN tab 06/11/19 06/10/19 History RiFAXimin* [Xifaxan*] 550 mg PO BID #60 tab 06/11/19 Rx Medication changes: Add on Rifaximin-> also still in the process of prior authorization Increased lantus from 8U to 10U. Disposition: Home Condition: Fair Primary Diagnosis: 1. Hepatic encephalopathy 2. Decompensated liver cirrhosis Secondary Diagnosis: 1. CKD 2. HTN 3. IDDM 4. Anemia 5.GERD Diagnostic Imaging: CT brain: no acute changes CXR: no acute cardiopulmonary changes. 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 She was found to have high ammonia level, normal CT brain, normal electrolytes, which consistent with recurrence of hepatic encephalopathy. No obvious precipitant could be found in trigering her encephalopathy, she is very compliant with lactulose, and bowel movement is regular 2-3 times a day. Please refer to H&P dated 06/10/[address] Janelle Devi for more information. Patient was admitted to hospital, she was started on Rifaximin, which lead to great improvement in her mental status next day. However patient had problem getting insurance approval for this medication since last discharge. rollout manager helped start prior authorization process for her during inpatient, it may take days to get case reviewed. This shall be followed up by her [employer] conservation [employer] office or her PCP office, peer to peer may be needed coming up. Case was discussed with [employer] lab[employer] consult Dr. Barrientos during this hospitalization, she suggested patient to be referred to [facility] for BRTO for splenorenal shunt occlusion outpatient, she also suggested to start sodium benzonate as alternative if Rifaximin not available. Above information conveyed to patient and his . She was also consulted by palliative care, who provided palliative contact to her. On the day of discharge, patient is alert and oriented, back to baseline. She was informed about prior authorization process for Rifaxamin. She will follow up with her [employer] Dr. Smart 06/17/19 1:30pm via tele visit. Follow Up Instructions: 1. Follow up with Rifaxamin prior authorization. It was initiated during her hospitalization. She needs it as she failed lactulose, developed hepatic encephalopathy despite lactulose use and lack of precipitant. 2. Telemed visit with Dr. Smart 06/17/19, 1:30pm. In case of an emergency or after clinic hours, please go to your nearest Emergency Department. You may also call the [employer] ball mill operator at .
== END 2019-06-11 18:55 | disposition home or self-care (01) ==
LOC: ED 12:22 → SSU 15:29 → INTOOBSV 15:29
PROVIDERS: ADMIT Internal Medicine; ATTEND Internal Medicine
DX: K72.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, unspecified without coma (principal); K74.60 Unspecified cirrhosis of liver; 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 chronic kidney disease with stage 1 through stage 4 chronic kidney disease, or unspecified chronic kidney disease; E10.22 Type 1 diabetes mellitus with diabetic chronic kidney disease; N18.3 Chronic kidney disease, stage 3 (moderate); K21.9 Gastro-esophageal reflux disease without esophagitis; K75.81 Nonalcoholic steatohepatitis (NASH); D64.9 Anemia, unspecified; Z79.82 Long term (current) use of aspirin; Z79.899 Other long term (current) drug therapy; Z79.4 Long term (current) use of insulin; R94.31 Abnormal electrocardiogram [ECG] [EKG]; Z86.73 Personal history of transient ischemic attack (TIA), and cerebral infarction without residual deficits; E86.0 Dehydration; R79.89 Other specified abnormal findings of blood chemistry
CPT/HCPCS: 36415; 70450; 71045; 80053; 80307; 80320; 80329; 81003; 81015; 82140; 82550; 83605; 83735; 84443; 84484; 85025; 85060; 85610; 87086; 93005; 99284; A9270-GY; G0378; G0480

== ENCOUNTER 2020-08-14 18:46 | Inpatient (IN) ==
[2020-08-14] MEDS ORDERED: Haloperidol 5 mg/ml SDV IV/IM 5 MG/ML AMP IV SLOW PU ONE (20:48)
[2020-08-14] MEDS ORDERED: Magnesium Sulfate IV 1GM/100ML 1 GM/100 ML BAG IV ONE (20:50)
[2020-08-14] MEDS ORDERED: Haloperidol 5 mg/ml SDV IV/IM 5 MG/ML AMP IM ONE (20:58)
[2020-08-14 22:04] LABS: Hematocrit 30 % (35-47); Hemoglobin 9.9 g/dL (12.0-16.0); Mean Corpuscular HGB Conc 34 g/dL (31-36); Mean Corpuscular Hemoglobin 34 pg (27-31); Mean Corpuscular Volume 102 fL (80-97); Mean Platelet Volume 9.2 fL (7.4-10.4); Platelet Count 135 10^3/uL (150-450); Red Cell Distribution Width 16 % (10-15); White Blood Count 11.3 10^3/uL (3.5-10.8)
[2020-08-14 22:05] LABS: Acetaminophen < 15 mcg/mL; Alcohol, S < 10 mg/dL (<10)
[2020-08-14 22:06] LABS: ALT 23 U/L (7-52); AST 57 U/L (13-39); Albumin 2.8 g/dL (3.2-5.2); Albumin/Globulin Ratio 0.7 (1-3); Alkaline Phosphatase 167 U/L (35-149); Anion Gap 7 mmol/L (2-11); Blood Urea Nitrogen 53 mg/dL (6-24); CO2 Carbon Dioxide 25 mmol/L (22-32); Calcium 9.4 mg/dL (8.6-10.3); Chloride 109 mmol/L (101-111); EGFR African American 20.8 (>60); EGFR Non-African American 17.2 (>60); Globulin 3.8 g/dL (2-4); Glucose 176 mg/dL (70-100); Magnesium 2.4 mg/dL (1.9-2.7); Potassium 4.3 mmol/L (3.5-5.0); Sodium 141 mmol/L (135-145); Total Protein 6.6 g/dL (6.4-8.9)
[2020-08-14 22:07] LABS: Troponin I 0.01 ng/mL (<0.03)
[2020-08-14 22:32] LABS: ABS Basophils 0.1 10^3/ul (0-0.2); ABS Lymphocytes 0.8 10^3/ul (1.0-4.8); ABS Monocytes 0.6 10^3/ul (0-0.8); ABS Neutrophils 9.8 10^3/ul (1.5-7.7); Eosinophil % 0.1 %
[2020-08-14 23:40] LABS: C Reactive Protein 12.81 mg/L (<8.01)
[2020-08-15] MEDS ORDERED: NS 0.9% 250 ml 0 ML ONE (01:23)
[2020-08-15] MEDS: cefTRIAXone 1 gm/50 mL NS BAG 1 GM/50 ML BAG IVPB SCH (01:28)
[2020-08-15 01:34] LABS: Urine Appearance Cloudy; Urine Bilirubin Negative (Negative); Urine Blood 3+ (Negative); Urine Color Yellow; Urine Glucose Negative (Negative); Urine Ketones Negative (Negative); Urine Nitrite Negative (Negative); Urine Protein 1+(30 mg/dL) (Negative); Urine Specific Gravity 1.008 (1.002-1.030); Urine Urobilinogen Negative (Negative)
[2020-08-15 01:41] LABS: Urine Bacteria Absent (Absent); Urine Red Blood Cell 3+(>10/hpf) (Absent); Urine White Blood Cell 3+(>20/hpf) (Absent)
[2020-08-15 01:44] LABS: Urine Benzodiazepine Screen None Detected (None Detect); Urine Cannabinoids Screen Presumptive Positive (None Detect); Urine Opiates Screen None Detected (None Detect)
[2020-08-15] MEDS: DOXYcycline 100 MG in NS 0.9% 250 ml 250 ML IVPB SCH ×2 (03:22→14:03)
[2020-08-15] MEDS ORDERED: LORazepam 2 mg VIAL 1 ml IV PUSH ONE (04:19)
[2020-08-15] MEDS ORDERED: Lorazepam PYXIS KEY PRN (04:19)
[2020-08-15 08:38] LABS: ABS Lymphocytes 1.5 10^3/ul (1.0-4.8); ABS Monocytes 0.4 10^3/ul (0-0.8); Eosinophil % 0.1 %; Hematocrit 37 % (35-47); Mean Corpuscular HGB Conc 32 g/dL (31-36); Mean Corpuscular Hemoglobin 34 pg (27-31); Mean Corpuscular Volume 108 fL (80-97); Mean Platelet Volume 8.8 fL (7.4-10.4); Nucleated Red Blood Cells % 0.1; Platelet Count 130 10^3/uL (150-450); Red Blood Count 3.48 10^6 /uL (3.70-4.87); Red Cell Distribution Width 18 % (10-15)
[2020-08-15 08:43] LABS: Albumin 2.9 g/dL (3.2-5.2); Calcium 9.5 mg/dL (8.6-10.3); Total Bilirubin 1.6 mg/dL (0.2-1.0)
[2020-08-15 08:49] LABS: Albumin/Globulin Ratio 0.7 (1-3); EGFR African American 24.6 (>60); EGFR Non-African American 20.3 (>60); Total Protein 6.9 g/dL (6.4-8.9)
[2020-08-15] MEDS ORDERED: Lactulose 30 ml UDC PO SCH (09:00)
[2020-08-15] MEDS: Heparin 5000 UNITS/ML 1 mL VIAL SUBCUT SCH ×2 (09:37→21:27)
[2020-08-15] MEDS: Lactulose 300 ML for PR 200 GM/300 ML BTL PR SCH ×3 (13:47→21:27)
[2020-08-16] MEDS: cefTRIAXone 1 gm/50 mL NS BAG 1 GM/50 ML BAG IVPB SCH (01:01)
[2020-08-16] MEDS: DOXYcycline 100 MG in NS 0.9% 250 ml 250 ML IVPB SCH (02:10)
[2020-08-16] MEDS: Heparin 5000 UNITS/ML 1 mL VIAL SUBCUT SCH (08:22)
[2020-08-16] MEDS ORDERED: Lactulose 30 ml UDC PO SCH (09:00)
[2020-08-16 09:11] LABS: CO2 Carbon Dioxide 21 mmol/L (22-32); Calcium 8.8 mg/dL (8.6-10.3); Sodium 143 mmol/L (135-145)
[2020-08-16 09:12] LABS: Anion Gap 9 mmol/L (2-11); Chloride 113 mmol/L (101-111)
[2020-08-16 09:17] LABS: Blood Urea Nitrogen 48 mg/dL (6-24); EGFR African American 28.6 (>60); EGFR Non-African American 23.7 (>60); Glucose 182 mg/dL (70-100)
[2020-08-16 09:21] LABS: ABS Lymphocytes 1.7 10^3/ul (1.0-4.8); ABS Monocytes 0.6 10^3/ul (0-0.8); ABS Neutrophils 8.7 10^3/ul (1.5-7.7); Eosinophil % 0.1 %; Hematocrit 31 % (35-47); Hemoglobin 10.3 g/dL (12.0-16.0); Lymphocyte % 15.2 %; Mean Corpuscular HGB Conc 34 g/dL (31-36); Mean Corpuscular Hemoglobin 35 pg (27-31); Mean Corpuscular Volume 103 fL (80-97); Red Cell Distribution Width 16 % (10-15)
[2020-08-16 10:07] LABS: Mean Platelet Volume 8.4 fL (7.4-10.4); Platelet Count 95 10^3/uL (150-450)
[2020-08-16 12:16] VITALS: BP 144/65
== END 2020-08-16 13:04 | disposition home or self-care (01) | DRG 441 ==
LOC: ED 18:46 → MEDTELE 08-15 00:30
PROVIDERS: ADMIT Student in an Organized Health Care Education/Training Program; ATTEND Pediatrics

== ENCOUNTER 2020-11-17 17:04 | Observation (INO) ==
[2020-11-17 19:53] LABS: ALT 19 U/L (7-52); AST 50 U/L (13-39); Albumin 2.6 g/dL (3.2-5.2); Albumin/Globulin Ratio 0.7 (1-3); Alkaline Phosphatase 194 U/L (35-149); Anion Gap 5 mmol/L (2-11); Blood Urea Nitrogen 34 mg/dL (6-24); CO2 Carbon Dioxide 25 mmol/L (22-32); Calcium 9.1 mg/dL (8.6-10.3); Chloride 109 mmol/L (101-111); EGFR African American 20.4 (>60); EGFR Non-African American 16.9 (>60); Globulin 3.8 g/dL (2-4); Glucose 118 mg/dL (70-100); Lipase 44 U/L (11.0-82.0); Magnesium 2.5 mg/dL (1.9-2.7); Potassium 4.6 mmol/L (3.5-5.0); Sodium 139 mmol/L (135-145); Total Protein 6.4 g/dL (6.4-8.9)
[2020-11-17 19:56] LABS: ABS Basophils 0.1 10^3/ul (0-0.2); ABS Eosinophils 0.1 10^3/ul (0-0.6); ABS Lymphocytes 1.9 10^3/ul (1.0-4.8); ABS Monocytes 0.4 10^3/ul (0-0.8); ABS Neutrophils 3.5 10^3/ul (1.5-7.7); Eosinophil % 1.7 %; Hematocrit 26 % (35-47); Hemoglobin 9.1 g/dL (12.0-16.0); Lymphocyte % 31.3 %; Mean Corpuscular HGB Conc 35 g/dL (31-36); Mean Corpuscular Hemoglobin 35 pg (27-31); Mean Corpuscular Volume 100 fL (80-97); Mean Platelet Volume 8.4 fL (7.4-10.4); Platelet Count 92 10^3/uL (150-450); Red Cell Distribution Width 16 % (10-15)
[2020-11-17] MEDS ORDERED: Lactulose 30 ml UDC PO ONE (20:20)
[2020-11-17] MEDS ORDERED: Ondansetron 4 mg VIAL 2 MG/ML 2 ml VIAL IV PRN (21:59)
[2020-11-17] MEDS: Lactulose 30 ml UDC PO SCH (22:38)
[2020-11-17] MEDS ORDERED: Dextrose 50% Syringe 50 ml 25 GM/50 ML SYRINGE IV PUSH PRN (23:36)
[2020-11-17] MEDS ORDERED: Insulin GLARGINE 100 un/ml 10 ml VIAL SUBCUT ONE (23:36)
[2020-11-17 23:43] LABS: Rapid COVID-19 Molecular Undetected (Undetected)
[2020-11-18] MEDS: Lactulose 30 ml UDC PO SCH ×8 (01:48→23:07)
[2020-11-18 02:33] LABS: Folate > 20.00 ng/mL (5.90-24.80)
[2020-11-18 02:34] LABS: Vitamin B12 > 1450 pg/mL (180-914)
[2020-11-18 04:22] LABS: Urine Appearance Clear; Urine Bilirubin Negative (Negative); Urine Blood Negative (Negative); Urine Color Straw; Urine Glucose Negative (Negative); Urine Ketones Negative (Negative); Urine Nitrite Negative (Negative); Urine Protein Negative (Negative); Urine Specific Gravity 1.008 (1.002-1.030); Urine Urobilinogen Negative (Negative)
[2020-11-18 06:10] LABS: Hematocrit 28 % (35-47); Hemoglobin 9.2 g/dL (12.0-16.0); Mean Corpuscular HGB Conc 33 g/dL (31-36); Mean Corpuscular Hemoglobin 33 pg (27-31); Mean Corpuscular Volume 101 fL (80-97); Mean Platelet Volume 9.2 fL (7.4-10.4); Platelet Count 107 10^3/uL (150-450); Red Blood Count 2.76 10^6 /uL (3.70-4.87); Red Cell Distribution Width 17 % (10-15); White Blood Count 6.7 10^3/uL (3.5-10.8)
[2020-11-18] MEDS: Heparin 5000 UNITS/ML 1 mL VIAL SUBCUT SCH ×3 (06:10→21:33)
[2020-11-18 06:20] LABS: INR 1.21 (0.86-1.15)
[2020-11-18 06:28] LABS: Albumin 2.7 g/dL (3.2-5.2); Albumin/Globulin Ratio 0.7 (1-3); Calcium 9.4 mg/dL (8.6-10.3); EGFR African American 22.5 (>60); EGFR Non-African American 18.6 (>60); Globulin 3.9 g/dL (2-4); Potassium 4.3 mmol/L (3.5-5.0); Total Bilirubin 1.6 mg/dL (0.2-1.0); Total Protein 6.6 g/dL (6.4-8.9)
[2020-11-18 07:00] LABS: Schistocytes 2+
[2020-11-18 07:03] LABS: Acanthocytes 1+
[2020-11-18 07:05] LABS: ABS Eosinophils 0.1 10^3/ul (0-0.6); ABS Lymphocytes 1.6 10^3/ul (1.0-4.8); ABS Monocytes 0.4 10^3/ul (0-0.8); ABS Neutrophils 4.6 10^3/ul (1.5-7.7); Eosinophil % 1.3 %; Lymphocyte % 23.7 %; Nucleated Red Blood Cells % 0.1
[2020-11-18] MEDS: Insulin GLARGINE 100 un/ml 10 ml VIAL SUBCUT SCH ×2 (08:18→19:55)
[2020-11-18] MEDS: Multivitamins/Minerals TAB PO SCH (08:19)
[2020-11-19] MEDS: Lactulose 30 ml UDC PO SCH ×5 (02:04→13:05)
[2020-11-19] MEDS: Heparin 5000 UNITS/ML 1 mL VIAL SUBCUT SCH ×2 (05:02→15:55)
[2020-11-19 05:32] LABS: ABS Basophils 0.1 10^3/ul (0-0.2); ABS Eosinophils 0.2 10^3/ul (0-0.6); ABS Lymphocytes 2.7 10^3/ul (1.0-4.8); ABS Monocytes 0.5 10^3/ul (0-0.8); ABS Neutrophils 4.2 10^3/ul (1.5-7.7); Eosinophil % 2.1 %; Hematocrit 25 % (35-47); Hemoglobin 8.5 g/dL (12.0-16.0); Mean Corpuscular HGB Conc 34 g/dL (31-36); Mean Corpuscular Hemoglobin 34 pg (27-31); Mean Corpuscular Volume 100 fL (80-97); Platelet Count 89 10^3/uL (150-450); Red Blood Count 2.46 10^6 /uL (3.70-4.87); Red Cell Distribution Width 17 % (10-15); White Blood Count 7.6 10^3/uL (3.5-10.8)
[2020-11-19 05:50] LABS: Albumin 2.5 g/dL (3.2-5.2); Albumin/Globulin Ratio 0.7 (1-3); Calcium 9.2 mg/dL (8.6-10.3); Direct Bilirubin 0.3 mg/dL (0.03-0.18); EGFR Non-African American 20.7 (>60); Globulin 3.5 g/dL (2-4); Indirect Bilirubin 1.1 mg/dL (0.3-1.0); Magnesium 2.1 mg/dL (1.9-2.7); Phosphorus 2.1 mg/dL (2.5-5.0); Potassium 4.1 mmol/L (3.5-5.0); Total Bilirubin 1.4 mg/dL (0.2-1.0)
[2020-11-19] MEDS: Multivitamins/Minerals TAB PO SCH (07:44)
[2020-11-19] MEDS: Insulin GLARGINE 100 un/ml 10 ml VIAL SUBCUT SCH (07:48)
[2020-11-19 12:13] VITALS: BP 149/70
== END 2020-11-19 16:30 | disposition home or self-care (01) ==
LOC: ED 17:04 → MED 17:04 → SUATTDRO 23:02
PROVIDERS: ADMIT Internal Medicine; ATTEND Internal Medicine

== ENCOUNTER 2020-11-29 08:41 | Inpatient (IN) ==
[2020-11-29 09:53] LABS: Activated Partial Thrombo Time 31.6 seconds (26.0-38.0); INR 1.18 (0.86-1.15)
[2020-11-29 09:54] LABS: ABS Eosinophils 0.1 10^3/ul (0-0.6); ABS Lymphocytes 1.5 10^3/ul (1.0-4.8); ABS Monocytes 0.3 10^3/ul (0-0.8); ABS Neutrophils 2.2 10^3/ul (1.5-7.7); Eosinophil % 2.3 %; Hematocrit 30 % (35-47); Hemoglobin 9.8 g/dL (12.0-16.0); Lymphocyte % 35.5 %; Mean Corpuscular HGB Conc 33 g/dL (31-36); Mean Corpuscular Hemoglobin 34 pg (27-31); Mean Corpuscular Volume 101 fL (80-97); Mean Platelet Volume 9.5 fL (7.4-10.4); Nucleated Red Blood Cells % 0.1; Platelet Count 102 10^3/uL (150-450); Red Blood Count 2.91 10^6 /uL (3.70-4.87); Red Cell Distribution Width 17 % (10-15); White Blood Count 4.1 10^3/uL (3.5-10.8)
[2020-11-29 09:57] LABS: Albumin 2.9 g/dL (3.2-5.2); CO2 Carbon Dioxide 23 mmol/L (22-32); Calcium 9.6 mg/dL (8.6-10.3); Chloride 106 mmol/L (101-111); Sodium 137 mmol/L (135-145)
[2020-11-29 10:02] LABS: Troponin I 0.01 ng/mL (<0.03)
[2020-11-29 10:03] LABS: ALT 23 U/L (7-52); Albumin/Globulin Ratio 0.7 (1-3); Alkaline Phosphatase 212 U/L (35-149); Blood Urea Nitrogen 39 mg/dL (6-24); C Reactive Protein 6.85 mg/L (<8.01); Globulin 3.9 g/dL (2-4); Glucose 114 mg/dL (70-100); Total Protein 6.8 g/dL (6.4-8.9)
[2020-11-29] MEDS ORDERED: Lactulose 30 ml UDC PO ONE (10:06)
[2020-11-29] MEDS ORDERED: Lactulose 300 ML for PR 200 GM/300 ML BTL PR ONE (10:31)
[2020-11-29 10:34] LABS: Anion Gap 8 mmol/L (2-11)
[2020-11-29] MEDS ORDERED: LORazepam 2 mg VIAL 1 ml IV PUSH ONE (10:40)
[2020-11-29] MEDS ORDERED: Lorazepam PYXIS KEY PRN (10:40)
[2020-11-29] MEDS ORDERED: Ondansetron 4 mg VIAL 2 MG/ML 2 ml VIAL IV PRN (12:57)
[2020-11-29 14:45] LABS: Rapid COVID-19 Molecular Undetected (Undetected)
[2020-11-29] MEDS ORDERED: Lactulose 300 ML for PR 200 GM/300 ML BTL PR PRN (16:21)
[2020-11-29] MEDS: Lactulose 30 ml UDC PO SCH ×2 (17:38→20:22)
[2020-11-29] MEDS: Nystatin TOP POWDER 15 GM BTL TOPICAL SCH (20:26)
[2020-11-29] MEDS ORDERED: Insulin GLARGINE 100 un/ml 10 ml VIAL SUBCUT SCH (21:00)
[2020-11-29] MEDS ORDERED: Dextrose 50% Syringe 50 ml 25 GM/50 ML SYRINGE IV PUSH PRN (22:16)
[2020-11-29] MEDS ORDERED: hydrALAZINE 20 mg/ml 1 ML Vial IV IV SLOW PU PRN (22:20)
[2020-11-30 03:17] LABS: Urine Appearance Clear; Urine Bilirubin Negative (Negative); Urine Blood 1+ (Negative); Urine Color Yellow; Urine Glucose Negative (Negative); Urine Ketones Negative (Negative); Urine Nitrite Negative (Negative); Urine Protein 1+(30 mg/dL) (Negative); Urine Specific Gravity 1.012 (1.002-1.030); Urine Urobilinogen Negative (Negative)
[2020-11-30 03:58] LABS: Urine Bacteria Absent (Absent); Urine Red Blood Cell Trace(0-2/hpf) (Absent); Urine Squamous Epithelial Cell Present (Absent); Urine White Blood Cell 1+(6-10/hpf) (Absent)
[2020-11-30 06:03] LABS: ABS Eosinophils 0.2 10^3/ul (0-0.6); ABS Lymphocytes 1.6 10^3/ul (1.0-4.8); ABS Monocytes 0.5 10^3/ul (0-0.8); ABS Neutrophils 3.2 10^3/ul (1.5-7.7); Eosinophil % 2.8 %; Hematocrit 28 % (35-47); Hemoglobin 9.7 g/dL (12.0-16.0); Mean Corpuscular HGB Conc 35 g/dL (31-36); Mean Corpuscular Hemoglobin 35 pg (27-31); Mean Corpuscular Volume 100 fL (80-97); Platelet Count 107 10^3/uL (150-450); Red Blood Count 2.79 10^6 /uL (3.70-4.87); Red Cell Distribution Width 17 % (10-15); White Blood Count 5.6 10^3/uL (3.5-10.8)
[2020-11-30 06:18] LABS: Calcium 9.6 mg/dL (8.6-10.3)
[2020-11-30] MEDS ORDERED: Pantoprazole VIAL 40 MG VIAL IV SCH (09:00)
[2020-11-30] MEDS ORDERED: Insulin GLARGINE 100 un/ml 10 ml VIAL SUBCUT SCH (09:00)
[2020-11-30] MEDS: Lactulose 30 ml UDC PO SCH ×4 (10:13→17:13)
[2020-11-30] MEDS: Nystatin TOP POWDER 15 GM BTL TOPICAL SCH (10:16)
[2020-11-30 15:15] VITALS: BP 137/58
== END 2020-11-30 18:16 | disposition home or self-care (01) | DRG 432 ==
LOC: ED 08:41 → MEDTELE 12:58
PROVIDERS: ADMIT Internal Medicine; ATTEND Internal Medicine

== ENCOUNTER 2020-12-04 08:22 | Observation (INO) ==
[2020-12-04 09:35] LABS: ABS Eosinophils 0.1 10^3/ul (0-0.6); ABS Lymphocytes 1.5 10^3/ul (1.0-4.8); ABS Monocytes 0.3 10^3/ul (0-0.8); ABS Neutrophils 2.8 10^3/ul (1.5-7.7); Eosinophil % 1.6 %; Hematocrit 31 % (35-47); Hemoglobin 10.3 g/dL (12.0-16.0); Mean Corpuscular HGB Conc 33 g/dL (31-36); Mean Corpuscular Hemoglobin 34 pg (27-31); Mean Corpuscular Volume 103 fL (80-97); Mean Platelet Volume 8.4 fL (7.4-10.4); Platelet Count 93 10^3/uL (150-450); Red Blood Count 2.99 10^6 /uL (3.70-4.87); Red Cell Distribution Width 17 % (10-15); White Blood Count 4.8 10^3/uL (3.5-10.8)
[2020-12-04 09:37] LABS: ALT 37 U/L (7-52); AST 76 U/L (13-39); Albumin 3.1 g/dL (3.2-5.2); Albumin/Globulin Ratio 0.7 (1-3); Alkaline Phosphatase 243 U/L (35-149); Anion Gap 8 mmol/L (2-11); Blood Urea Nitrogen 33 mg/dL (6-24); C Reactive Protein 7.88 mg/L (<8.01); CO2 Carbon Dioxide 24 mmol/L (22-32); Calcium 10.3 mg/dL (8.6-10.3); Chloride 104 mmol/L (101-111); Globulin 4.4 g/dL (2-4); Glucose 191 mg/dL (70-100); Lipase 26 U/L (11.0-82.0); Magnesium 2.5 mg/dL (1.9-2.7); Potassium 4.4 mmol/L (3.5-5.0); Sodium 136 mmol/L (135-145); Total Protein 7.5 g/dL (6.4-8.9)
[2020-12-04] MEDS ORDERED: Lactated Ringers 1000 ml BAG 1,000 ML IV ONE (09:45)
[2020-12-04] MEDS ORDERED: Lactulose 30 ml UDC PO ONE (09:46)
[2020-12-04 10:11] LABS: Alcohol, S < 13 mg/dL (<13)
[2020-12-04 11:27] LABS: Urine Appearance Clear; Urine Bilirubin Negative (Negative); Urine Blood Negative (Negative); Urine Color Yellow; Urine Glucose Negative (Negative); Urine Ketones Negative (Negative); Urine Nitrite Negative (Negative); Urine Protein Negative (Negative); Urine Specific Gravity 1.006 (1.002-1.030); Urine Urobilinogen Negative (Negative)
[2020-12-04 11:31] LABS: Urine Bacteria 1+ (Absent); Urine Benzodiazepine Screen None Detected (None Detect); Urine Cannabinoids Screen Presumptive Positive (None Detect); Urine Opiates Screen None Detected (None Detect); Urine Red Blood Cell Absent (Absent); Urine Squamous Epithelial Cell Present (Absent); Urine White Blood Cell 1+(6-10/hpf) (Absent)
[2020-12-04] MEDS ORDERED: Ondansetron 4 mg VIAL 2 MG/ML 2 ml VIAL IV PRN (12:22)
[2020-12-04] MEDS ORDERED: Dextrose 50% Syringe 50 ml 25 GM/50 ML SYRINGE IV PUSH PRN (12:30)
[2020-12-04] MEDS: Lactulose 300 ML for PR 200 GM/300 ML BTL PR SCH ×3 (14:03→22:15)
[2020-12-04 14:40] LABS: Rapid COVID-19 Molecular Undetected (Undetected)
[2020-12-04] MEDS: Nystatin TOP POWDER 15 GM BTL TOPICAL SCH ×2 (16:38→21:06)
[2020-12-04] MEDS: NS 0.9% 1000 ml BAG 1,000 ML IV SCH (18:41)
[2020-12-04] MEDS: Insulin GLARGINE 100 un/ml 10 ml VIAL SUBCUT SCH (20:59)
[2020-12-04] MEDS ORDERED: Insulin GLARGINE 100 un/ml 10 ml VIAL SUBCUT SCH (21:00)
[2020-12-05] MEDS: Insulin GLARGINE 100 un/ml 10 ml VIAL SUBCUT SCH ×2 (09:21→22:45)
[2020-12-05] MEDS: Lactulose 300 ML for PR 200 GM/300 ML BTL PR SCH (09:21)
[2020-12-05] MEDS: NS 0.9% 1000 ml BAG 1,000 ML IV SCH (09:24)
[2020-12-05 09:30] LABS: Albumin 2.3 g/dL (3.2-5.2); CO2 Carbon Dioxide 19 mmol/L (22-32); Calcium 9.3 mg/dL (8.6-10.3); Chloride 111 mmol/L (101-111); Sodium 139 mmol/L (135-145)
[2020-12-05 09:36] LABS: ALT 23 U/L (7-52); Albumin/Globulin Ratio 0.6 (1-3); Alkaline Phosphatase 198 U/L (35-149); Blood Urea Nitrogen 31 mg/dL (6-24); Globulin 3.6 g/dL (2-4); Glucose 177 mg/dL (70-100); Total Protein 5.9 g/dL (6.4-8.9)
[2020-12-05 09:44] LABS: Indirect Bilirubin 1.2 mg/dL (0.3-1.0)
[2020-12-05 09:45] LABS: Anion Gap 9 mmol/L (2-11)
[2020-12-05] MEDS: Nystatin TOP POWDER 15 GM BTL TOPICAL SCH ×2 (10:13→22:55)
[2020-12-05 12:23] LABS: ABS Eosinophils 0.1 10^3/ul (0-0.6); ABS Lymphocytes 1.7 10^3/ul (1.0-4.8); ABS Monocytes 0.6 10^3/ul (0-0.8); Eosinophil % 2.2 %; Hematocrit 27 % (35-47); Mean Corpuscular HGB Conc 34 g/dL (31-36); Mean Corpuscular Hemoglobin 35 pg (27-31); Mean Corpuscular Volume 102 fL (80-97); Mean Platelet Volume 9.9 fL (7.4-10.4); Nucleated Red Blood Cells % 0.1; Platelet Count 103 10^3/uL (150-450); Red Blood Count 2.61 10^6 /uL (3.70-4.87); Red Cell Distribution Width 17 % (10-15); White Blood Count 5.4 10^3/uL (3.5-10.8)
[2020-12-05 12:38] LABS: Potassium Redraw 4.1 mmol/L (3.5-5.0)
[2020-12-05] MEDS: Lactulose 30 ml UDC PO SCH ×3 (12:38→22:40)
[2020-12-05] MEDS: Heparin 5000 UNITS/ML 1 mL VIAL SUBCUT SCH ×2 (12:39→22:52)
[2020-12-05] MEDS ORDERED: Lactulose 30 ml UDC PO SCH (14:00)
[2020-12-06] MEDS: Heparin 5000 UNITS/ML 1 mL VIAL SUBCUT SCH ×2 (05:24→12:14)
[2020-12-06 07:27] LABS: Albumin 2.5 g/dL (3.2-5.2); Albumin/Globulin Ratio 0.7 (1-3); Calcium 9.4 mg/dL (8.6-10.3); Globulin 3.7 g/dL (2-4); Potassium 3.8 mmol/L (3.5-5.0); Total Bilirubin 1.6 mg/dL (0.2-1.0); Total Protein 6.2 g/dL (6.4-8.9)
[2020-12-06] MEDS: Lactulose 30 ml UDC PO SCH ×2 (10:30→12:09)
[2020-12-06] MEDS: Insulin GLARGINE 100 un/ml 10 ml VIAL SUBCUT SCH (10:32)
[2020-12-06] MEDS: Nystatin TOP POWDER 15 GM BTL TOPICAL SCH (10:35)
[2020-12-06 13:33] VITALS: BP 143/70
== END 2020-12-06 15:50 | disposition home or self-care (01) ==
LOC: ED 08:22 → MED 08:22 → SUATTDRO 11:23 → MED 18:12
PROVIDERS: ADMIT Internal Medicine; ATTEND Internal Medicine

== ENCOUNTER 2020-12-28 08:51 | Inpatient (IN) ==
[2020-12-28 10:19] LABS: Hematocrit 34 % (35-47); Hemoglobin 11.4 g/dL (12.0-16.0); Mean Corpuscular HGB Conc 33 g/dL (31-36); Mean Corpuscular Hemoglobin 33 pg (27-31); Mean Corpuscular Volume 100 fL (80-97); Mean Platelet Volume 9.7 fL (7.4-10.4); Platelet Count 105 10^3/uL (150-450); Red Blood Count 3.42 10^6 /uL (3.70-4.87); Red Cell Distribution Width 16 % (10-15); White Blood Count 5.6 10^3/uL (3.5-10.8)
[2020-12-28 10:23] LABS: ABS Lymphocytes 1.5 10^3/ul (1.0-4.8); ABS Monocytes 0.3 10^3/ul (0-0.8); ABS Neutrophils 3.7 10^3/ul (1.5-7.7); Eosinophil % 0.1 %; Lymphocyte % 27.4 %; Nucleated Red Blood Cells % 0.1
[2020-12-28 10:25] LABS: INR 1.23 (0.86-1.15)
[2020-12-28 10:33] LABS: Albumin 2.8 g/dL (3.2-5.2); Albumin/Globulin Ratio 0.7 (1-3); Globulin 3.9 g/dL (2-4); Potassium 4.9 mmol/L (3.5-5.0); Total Bilirubin 1.4 mg/dL (0.2-1.0); Total Protein 6.7 g/dL (6.4-8.9)
[2020-12-28] MEDS ORDERED: NS 0.9% 1000 ml BAG 1,000 ML IV ONE (10:34)
[2020-12-28] MEDS ORDERED: NS 0.9% 1000 ml BAG 1,000 ML IV SCH (11:00)
[2020-12-28] MEDS ORDERED: Dextrose 50% Syringe 50 ml 25 GM/50 ML SYRINGE IV PUSH PRN (11:09)
[2020-12-28] MEDS: Lactulose 300 ML for PR 200 GM/300 ML BTL PR SCH ×2 (13:57→20:49)
[2020-12-28 14:34] LABS: Rapid COVID-19 Molecular Undetected (Undetected)
[2020-12-28] MEDS: Insulin GLARGINE 100 un/ml 10 ml VIAL SUBCUT SCH (20:43)
[2020-12-28] MEDS: Lactulose 30 ml UDC PO SCH (20:43)
[2020-12-29 07:07] LABS: Calcium 9.8 mg/dL (8.6-10.3); Potassium 4.3 mmol/L (3.5-5.0)
[2020-12-29] MEDS: Vitamin THERAPEUTIC TAB PO SCH (08:28)
[2020-12-29] MEDS: Insulin GLARGINE 100 un/ml 10 ml VIAL SUBCUT SCH ×2 (08:28→21:03)
[2020-12-29] MEDS: Lactulose 30 ml UDC PO SCH ×4 (08:28→21:03)
[2020-12-30 08:20] LABS: ABS Basophils 0.1 10^3/ul (0-0.2); ABS Eosinophils 0.2 10^3/ul (0-0.6); ABS Lymphocytes 2.7 10^3/ul (1.0-4.8); ABS Monocytes 0.7 10^3/ul (0-0.8); Eosinophil % 2.5 %; Hematocrit 29 % (35-47); Hemoglobin 9.8 g/dL (12.0-16.0); Lymphocyte % 41.5 %; Mean Corpuscular HGB Conc 34 g/dL (31-36); Mean Corpuscular Hemoglobin 34 pg (27-31); Mean Corpuscular Volume 100 fL (80-97); Mean Platelet Volume 9.5 fL (7.4-10.4); Nucleated Red Blood Cells % 0.1; Platelet Count 90 10^3/uL (150-450); Red Blood Count 2.93 10^6 /uL (3.70-4.87); Red Cell Distribution Width 15 % (10-15); White Blood Count 6.6 10^3/uL (3.5-10.8)
[2020-12-30] MEDS: Lactulose 30 ml UDC PO SCH ×4 (08:25→20:48)
[2020-12-30] MEDS: Vitamin THERAPEUTIC TAB PO SCH (08:26)
[2020-12-30] MEDS: Insulin GLARGINE 100 un/ml 10 ml VIAL SUBCUT SCH ×2 (08:27→20:48)
[2020-12-30 08:32] LABS: Calcium 9.6 mg/dL (8.6-10.3); Magnesium 2.3 mg/dL (1.9-2.7); Potassium 4.2 mmol/L (3.5-5.0)
[2020-12-31] MEDS: Insulin GLARGINE 100 un/ml 10 ml VIAL SUBCUT SCH ×2 (08:40→20:45)
[2020-12-31] MEDS: Lactulose 30 ml UDC PO SCH ×4 (08:41→20:41)
[2020-12-31] MEDS: Vitamin THERAPEUTIC TAB PO SCH (08:41)
[2021-01-01 09:12] LABS: ABS Basophils 0.1 10^3/ul (0-0.2); ABS Eosinophils 0.2 10^3/ul (0-0.6); ABS Lymphocytes 2.5 10^3/ul (1.0-4.8); ABS Monocytes 0.5 10^3/ul (0-0.8); ABS Neutrophils 2.7 10^3/ul (1.5-7.7); Eosinophil % 3.4 %; Hematocrit 33 % (35-47); Hemoglobin 11.1 g/dL (12.0-16.0); Mean Corpuscular HGB Conc 34 g/dL (31-36); Mean Corpuscular Hemoglobin 34 pg (27-31); Mean Corpuscular Volume 100 fL (80-97); Mean Platelet Volume 9.5 fL (7.4-10.4); Platelet Count 97 10^3/uL (150-450); Red Blood Count 3.25 10^6 /uL (3.70-4.87); Red Cell Distribution Width 15 % (10-15)
[2021-01-01 09:24] LABS: Albumin 2.7 g/dL (3.2-5.2); Albumin/Globulin Ratio 0.7 (1-3); Calcium 10.1 mg/dL (8.6-10.3); Direct Bilirubin 0.4 mg/dL (0.03-0.18); Potassium 3.7 mmol/L (3.5-5.0); Total Bilirubin 1.8 mg/dL (0.2-1.0); Total Protein 6.7 g/dL (6.4-8.9)
[2021-01-01 09:25] LABS: Indirect Bilirubin 1.4 mg/dL (0.3-1.0)
[2021-01-01] MEDS: Vitamin THERAPEUTIC TAB PO SCH (09:31)
[2021-01-01] MEDS: Lactulose 30 ml UDC PO SCH ×2 (09:32→12:36)
[2021-01-01] MEDS: Insulin GLARGINE 100 un/ml 10 ml VIAL SUBCUT SCH (09:32)
[2021-01-01 18:12] VITALS: BP 125/54
== END 2021-01-01 16:45 | disposition home or self-care (01) | DRG 442 ==
LOC: ED 08:51 → SUATTDRO 18:40 → MED 18:40
PROVIDERS: ADMIT Hospitalist; ATTEND Internal Medicine

== ENCOUNTER 2021-01-05 14:40 | Inpatient (IN) ==
[2021-01-05 16:45] LABS: ABS Eosinophils 0.1 10^3/ul (0-0.6); ABS Lymphocytes 1.9 10^3/ul (1.0-4.8); ABS Monocytes 0.5 10^3/ul (0-0.8); ABS Neutrophils 2.9 10^3/ul (1.5-7.7); Eosinophil % 1.8 %; Hematocrit 32 % (35-47); Hemoglobin 10.7 g/dL (12.0-16.0); Lymphocyte % 34.9 %; Mean Corpuscular HGB Conc 34 g/dL (31-36); Mean Corpuscular Hemoglobin 34 pg (27-31); Mean Corpuscular Volume 101 fL (80-97); Mean Platelet Volume 10.1 fL (7.4-10.4); Nucleated Red Blood Cells % 0.1; Platelet Count 109 10^3/uL (150-450); Red Blood Count 3.15 10^6 /uL (3.70-4.87); Red Cell Distribution Width 16 % (10-15); White Blood Count 5.4 10^3/uL (3.5-10.8)
[2021-01-05 17:06] LABS: ALT 26 U/L (7-52); Albumin 2.7 g/dL (3.2-5.2); Albumin/Globulin Ratio 0.7 (1-3); Alkaline Phosphatase 190 U/L (35-149); Blood Urea Nitrogen 49 mg/dL (6-24); CO2 Carbon Dioxide 23 mmol/L (22-32); Calcium 9.8 mg/dL (8.6-10.3); Chloride 104 mmol/L (101-111); Globulin 3.9 g/dL (2-4); Glucose 253 mg/dL (70-100); Sodium 133 mmol/L (135-145); Total Protein 6.6 g/dL (6.4-8.9)
[2021-01-05 17:29] LABS: Troponin I 0.03 ng/mL (<0.03)
[2021-01-05 17:50] LABS: AST 58 U/L (13-39); Anion Gap 6 mmol/L (2-11); Magnesium 2.7 mg/dL (1.9-2.7)
[2021-01-05] MEDS ORDERED: NS 0.9% 1000 ml BAG 1,000 ML IV SCH (18:00)
[2021-01-05 18:13] LABS: Urine Appearance Clear; Urine Bilirubin Negative (Negative); Urine Blood Negative (Negative); Urine Color Straw; Urine Glucose Negative (Negative); Urine Ketones Negative (Negative); Urine Nitrite Negative (Negative); Urine Protein Negative (Negative); Urine Specific Gravity 1.005 (1.002-1.030); Urine Urobilinogen Negative (Negative)
[2021-01-05 18:21] LABS: Rapid COVID-19 Molecular Undetected (Undetected)
[2021-01-05] MEDS: Lactulose 30 ml UDC PO ONE ×2 (18:56→21:01)
[2021-01-05] MEDS ORDERED: Dextrose 50% Syringe 50 ml 25 GM/50 ML SYRINGE IV PUSH PRN (20:03)
[2021-01-05] MEDS ORDERED: Ondansetron ODT 4 mg TAB 4 MG TAB PO PRN (20:08)
[2021-01-05 22:24] LABS: INR 1.21 (0.86-1.15)
[2021-01-05] MEDS: NS 0.9% 1000 ml BAG 1,000 ML IV SCH (23:34)
[2021-01-06] MEDS: Lactulose 300 ML for PR 200 GM/300 ML BTL PR SCH ×3 (01:29→11:17)
[2021-01-06] MEDS: Lactulose 30 ml UDC PO SCH ×5 (01:29→21:01)
[2021-01-06 06:04] LABS: Albumin 2.8 g/dL (3.2-5.2); Albumin/Globulin Ratio 0.7 (1-3); Calcium 10.1 mg/dL (8.6-10.3); Globulin 4.3 g/dL (2-4); Potassium 4.4 mmol/L (3.5-5.0); Total Bilirubin 1.4 mg/dL (0.2-1.0); Total Protein 7.1 g/dL (6.4-8.9)
[2021-01-06 06:17] LABS: Troponin I 0.03 ng/mL (<0.03)
[2021-01-06] MEDS: NS 0.9% 1000 ml BAG 1,000 ML IV SCH (10:21)
[2021-01-06] MEDS ORDERED: Mineral Oil ENEMA 118 ML/BOTTLE BOTTLE PR ONE (13:03)
[2021-01-06] MEDS: Magnesium Hydroxide LIQ 30 ML UDC PO SCH (17:16)
[2021-01-06] MEDS ORDERED: Albumin Human 5% 12.5 GM/250 ML BTL IV ONE (18:00)
[2021-01-07] MEDS: Magnesium Hydroxide LIQ 30 ML UDC PO SCH ×2 (05:46→18:26)
[2021-01-07 06:06] LABS: Albumin 2.3 g/dL (3.2-5.2); Albumin/Globulin Ratio 0.7 (1-3); Calcium 9.1 mg/dL (8.6-10.3); Globulin 3.2 g/dL (2-4); Potassium 4.6 mmol/L (3.5-5.0); Total Protein 5.5 g/dL (6.4-8.9)
[2021-01-07] MEDS: Lactulose 30 ml UDC PO SCH ×5 (07:59→21:09)
[2021-01-08] MEDS: Magnesium Hydroxide LIQ 30 ML UDC PO SCH ×2 (05:38→17:46)
[2021-01-08 05:53] LABS: Hematocrit 31 % (35-47); Hemoglobin 10.5 g/dL (12.0-16.0); Mean Corpuscular HGB Conc 35 g/dL (31-36); Mean Corpuscular Hemoglobin 35 pg (27-31); Mean Corpuscular Volume 101 fL (80-97); Mean Platelet Volume 9.7 fL (7.4-10.4); Platelet Count 94 10^3/uL (150-450); Red Blood Count 3.01 10^6 /uL (3.70-4.87); Red Cell Distribution Width 15 % (10-15); White Blood Count 6.4 10^3/uL (3.5-10.8)
[2021-01-08 06:02] LABS: Albumin 2.6 g/dL (3.2-5.2); Albumin/Globulin Ratio 0.7 (1-3); Calcium 9.7 mg/dL (8.6-10.3); Globulin 3.7 g/dL (2-4); Potassium 4.6 mmol/L (3.5-5.0); Total Bilirubin 1.5 mg/dL (0.2-1.0); Total Protein 6.3 g/dL (6.4-8.9)
[2021-01-08] MEDS: Lactulose 30 ml UDC PO SCH ×4 (07:14→21:18)
[2021-01-08 17:36] LABS: Activated Partial Thrombo Time 31.1 seconds (26.0-38.0); INR 1.24 (0.86-1.15)
[2021-01-08 17:38] LABS: ABS Eosinophils 0.1 10^3/ul (0-0.6); ABS Monocytes 0.6 10^3/ul (0-0.8); ABS Neutrophils 2.9 10^3/ul (1.5-7.7); Hematocrit 28 % (35-47); Hemoglobin 9.4 g/dL (12.0-16.0); Lymphocyte % 34.9 %; Mean Corpuscular HGB Conc 34 g/dL (31-36); Mean Corpuscular Hemoglobin 35 pg (27-31); Mean Corpuscular Volume 102 fL (80-97); Platelet Count 83 10^3/uL (150-450); Red Blood Count 2.69 10^6 /uL (3.70-4.87); Red Cell Distribution Width 15 % (10-15); White Blood Count 5.6 10^3/uL (3.5-10.8)
[2021-01-08] MEDS: Heparin 5000 UNITS/ML 1 mL VIAL SUBCUT SCH (21:17)
[2021-01-09] MEDS: Magnesium Hydroxide LIQ 30 ML UDC PO SCH ×2 (05:15→17:43)
[2021-01-09] MEDS: Lactulose 30 ml UDC PO SCH ×4 (08:50→21:13)
[2021-01-09] MEDS: Heparin 5000 UNITS/ML 1 mL VIAL SUBCUT SCH ×2 (08:51→21:13)
[2021-01-10] MEDS: Lactulose 30 ml UDC PO SCH ×4 (08:34→21:46)
[2021-01-10] MEDS: Heparin 5000 UNITS/ML 1 mL VIAL SUBCUT SCH (08:35)
[2021-01-10] MEDS: Magnesium Hydroxide LIQ 30 ML UDC PO SCH ×2 (09:38→17:01)
[2021-01-11] MEDS: Magnesium Hydroxide LIQ 30 ML UDC PO SCH ×2 (06:14→17:32)
[2021-01-11] MEDS: Lactulose 30 ml UDC PO SCH ×4 (07:58→22:29)
[2021-01-12] MEDS: Magnesium Hydroxide LIQ 30 ML UDC PO SCH ×2 (09:00→16:31)
[2021-01-12] MEDS: Lactulose 30 ml UDC PO SCH ×4 (12:57→21:26)
[2021-01-13] MEDS: Magnesium Hydroxide LIQ 30 ML UDC PO SCH ×2 (05:02→17:20)
[2021-01-13] MEDS: Lactulose 30 ml UDC PO SCH ×4 (08:42→20:21)
[2021-01-14 04:20] VITALS: BP 141/68
[2021-01-14] MEDS: Magnesium Hydroxide LIQ 30 ML UDC PO SCH (05:59)
== END 2021-01-14 08:30 | disposition hospice, home (50) | DRG 442 ==
LOC: ED 14:40 → EDHOLD 19:49 → SUATTDRO 19:49 → MED 21:04
PROVIDERS: ADMIT Internal Medicine; ATTEND Internal Medicine